=== PATIENT | male | born 1960 | race Caucasian/White ===

== ENCOUNTER 2023-04-10 14:46 | Outpatient (OUT) | payer OTHER, SELFPAY ==
--- NOTE | 2023-04-10 14:58 | CA_ITS ---
Patient Name Site Name MARY ABURTO [facility] Account No Medical Record Number Age Sex Date Time [id number] [facility]:[id number] M 04/10/2023 15:04 At the Request Of KENNEDI MICHELLE ECHOCARDIOGRAM REPORT PROCEDURE: CA ECHO DOPPLER COMPLETE INDICATIONS: Thoracic aortic aneurysm without rupture COMPARISON: None. DESCRIPTION: COMPLETE ECHOCARDIOGRAM Real-time transthoracic echocardiography with 2D, M-mode, spectral and color flow Doppler performed. QUALITY: Technical quality was good. LEFT VENTRICLE: Normal chamber size. Normal left ventricular wall thickness. Global left ventricular systolic function is normal. LV EF: Estimated left ventricular ejection fraction is 60-65% DIASTOLIC: Normal diastolic function. ATRIAL SEPTUM: LEFT ATRIUM: Normal chamber size. RIGHT ATRIUM: Normal chamber size. RIGHT VENTRICLE: Normal chamber size. Normal right ventricular systolic function. TRICUSPID VALVE: Normal mobility and thickness. No stenosis with trivial regurgitation. No evidence of pulmonary hypertension. RVSP 24 mmHg MITRAL VALVE: Normal mobility and thickness. No evidence of mitral valve stenosis. There is no mitral annular calcification. No mitral regurgitation. AORTIC VALVE: Normal trileaflet appearance. No visible sclerosis. Normal leaflet mobility. No evidence of aortic valve stenosis. Trivial aortic regurgitation. AORTIC ROOT: Mildly to moderately dilated, measuring 4.2 cm. The ascending aorta is mildly dilated, measuring 3.9 cm. PULMONIC VALVE: Normal thickness and mobility. No stenosis. No regurgitation. PERICARDIUM: No evidence of pericardial effusion. IVC: Collapses with inspirations. PLEURA: CONCLUSION: 1. Normal ventricular function. LVEF is 60 to 65%. 2. No significant valvular dysfunction. 3. Normal right-sided pressures. 4. Mildly to moderately dilated aortic root [4.2 cm], mildly dilated ascending aorta [3.9 cm]. 5. No pericardial effusion. Adult Echocardiography Procedure Report Left Ventricle LVEDD (3.7 - 5.6 cm): 4.75 cm LVESD (2.2 - 4.0 cm): 3.34 cm LVIVS thickness (0.6 - 1.2 cm): 0.96 cm LVPW thickness (0.5 - 1.0 cm): 0.93 cm e': 0.11 m/s E - e': 6.18 LVOT Max Gradient: 2.56 mm[Hg] LVOT Area (cm2): 0.80 m/s Peak Velocity (LVOT): 0.80 m/s Mean Velocity (LVOT): 0.55 m/s LVOT Diameter 2.36 cm Left Ventricular Ejection Fraction: 60-65% Left Atrium LA Volume Index (2D A2C): 20.09 ml/m2 Left Atrium Systolic Dimension: 2.74 cm Mitral Valve MV E to A Ratio: 1.03 Mitral Valve A-Wave Peak Velocity: 0.63 m/s Mitral Valve E-Wave Peak Velocity: 0.65 m/s Right Ventricle RV Internal Diastolic Dimension: 3.33 cm Aorta AO Root Diam: 4.18 cm Ascending Ao Diam: 3.91 cm Aortic Valve AoV Area (Peak [place]): 3.28 cm2, 3.28 cm2 AoV Area (VTI): 3.04 cm2, 3.04 cm2 Peak Velocity(Antegrade Flow): 1.07 m/s Peak Gradient(Antegrade Flow): 4.54 mm[Hg] Mean Velocity(Antegrade Flow): 0.82 m/s Mean Gradient(Antegrade Flow): 2.95 mm[Hg] Velocity Time Integral: 24.29 cm Tricuspid Valve Peak Velocity (Regurgitant Flow): 1.66 m/s, 2.27 m/s Pulmonic Valve Mean Gradient: 1.00 mm[Hg], 0.89 mm[Hg] Mean Velocity: 0.46 m/s, 0.44 m/s Peak Velocity: 0.66 m/s Peak Gradient: 1.75 mm[Hg], 1.69 mm[Hg] Right Atrium Right Atrium Systolic Pressure: 33.35 ml, 33.35 ml Dictated by: Virgilio Edwards M.D. on 04/10/2023 at 19:06 Approved by: Virgilio Edwards M.D. on 04/10/2023 at 19:10
== END 2023-04-10 14:47 ==
PROVIDERS: PCP Family Medicine; Visit Provider Nurse Practitioner Family
DX: I71.21 Aneurysm of the ascending aorta, without rupture (principal)
CPT/HCPCS: 93306

== ENCOUNTER 2023-07-09 07:34 | Outpatient (OUT) | payer OTHER, SELFPAY ==
[2023-07-09 08:21] LABS: Basophils Absolute Auto 0.1 10^3/uL (0.0-0.1); Basophils Percent Auto 0.7 % (0.2-2.0); Eosinophils Absolute Auto 0.4 10^3/uL (0.0-0.7); Eosinophils Percent Auto 4.9 % (0.9-7.0); Hematocrit 46.7 % (42.0-54.0); Hemoglobin 16.2 g/dL (14.0-18.0); Immature Granulocytes Abs Auto 0.04 10^3/uL (0.00-0.03); Immature Granulocytes Pct Auto 0.5 % (0.0-0.5); Lymphocytes Absolute Auto 2.3 10^3/uL (1.2-3.8); Lymphocytes Percent Auto 26.8 % (20.5-60.0); Mean Corpuscular HGB Conc 34.7 g/dL (29.9-35.2); Mean Corpuscular Hemoglobin 33.8 pg (25.9-34.0); Mean Corpuscular Volume 97.3 fL (80.0-94.0); Mean Platelet Volume 8.7 fL (9.5-13.5); Monocytes Percent Auto 11.9 % (1.7-12.0); Neutrophils Absolute Auto 4.7 10^3/uL (1.4-6.5); Neutrophils Percent Auto 55.2 % (43.0-75.0); Platelet Count 291 10^3/uL (150-450); Red Cell Distribution Width 12.7 % (11.0-15.0); White Blood Count 8.6 10^3/uL (4.0-11.0)
[2023-07-09 08:32] LABS: Estimated Average Glucose 111 mg/dL; Glycohemoglobin A1C 5.5 % (4.5-6.2)
[2023-07-09 09:51] LABS: Alanine Aminotransferase 15 U/L (16-63); Albumin Globulin Ratio 0.9; Albumin Level 3.6 g/dL (3.4-5.0); Alkaline Phosphatase 127 U/L (46-116); Anion Gap 11.1; Aspartate Amino Transferase 13 U/L (15-37); BUN Creatinine Ratio 6.6; Bilirubin Total 0.4 mg/dL (0.2-1.0); Calcium 9.6 mg/dL (8.5-10.1); Carbon Dioxide 27.8 mmol/L (21.0-32.0); Chloride 106 mmol/L (98-107); Chol HDL Ratio 2.5; Cholesterol 125 mg/dL (<=200); Estimated GFR (African America >60 (>=60); Estimated GFR (Non-African Ame >60 (>=60); Globulin 3.9 g/dL; Glucose 100 mg/dL (74-106); HDL Cholesterol 51 mg/dL (40-60); LDL Cholesterol Calculated 59.4 mg/dL; Potassium 4.9 mmol/L (3.5-5.1); Sodium 140 mmol/L (136-145); Thyroid Stimulating Hormone 2.174 uIU/mL (0.358-3.740); Total Protein 7.5 g/dL (6.4-8.2); Triglycerides 73 mg/dL (<=150); VLDL CHOLESTEROL 14.6 mg/dL
[2023-07-09 09:54] LABS: Free T4 1.17 ng/dL (0.76-1.46)
[2023-07-09 10:00] LABS: Prostate Specific Antigen Scrn 1.03 ng/mL (<=4.00)
== END 2023-07-09 07:35 | disposition home or self-care (01) ==
PROVIDERS: PCP Family Medicine; Visit Provider Family Medicine
DX: Z00.00 Encounter for general adult medical examination without abnormal findings (principal); Z79.899 Other long term (current) drug therapy; R53.83 Other fatigue; Z12.5 Encounter for screening for malignant neoplasm of prostate
CPT/HCPCS: 36415; 80053; 80061; 83036; 84439; 84443; 84481; 85025; G0103

== ENCOUNTER 2023-10-25 14:37 | Outpatient (OUT) | payer OTHER, SELFPAY ==
--- NOTE | 2023-10-25 14:42 | XR_ITS ---
[address] [address] Patient Name: MARY ABURTO MRN: [id number] date: 1960 Sex: M Assigned Patient Location: [facility] Current Patient Location: Accession/Order Number: [id number] Exam Date: 10/25/2023 14:55 Report Date: 10/27/2023 18:18 At the request of: NIKUNJ HOFFMAN Procedure: XR cervical spine 5V EXAM: XR cervical spine 5V HISTORY: Cervical Radiculopathy M54.12 COMPARISON: None. FINDINGS/IMPRESSION: 1. Posterior fusion hardware throughout the cervical spine with pedicle screws and interconnecting rods. Anterior cervical discectomy and fusion hardware of the lower cervical spine. 2. Prevertebral soft tissues are normal. Airway is patent. 3. Plate and screw fixation of the right clavicle. 4. Lung apices are clear. 5. No acute fracture. Electronically authenticated by: LAURA BLACK Date: 10/27/2023 18:18
== END 2023-10-25 14:38 | disposition home or self-care (01) ==
LOC: RAD 14:38
PROVIDERS: PCP Family Medicine; Visit Provider Anesthesiology
DX: M54.12 Radiculopathy, cervical region (principal)
CPT/HCPCS: 72050

== ENCOUNTER 2023-11-30 13:16 | Outpatient (OUT) | payer OTHER, SELFPAY ==
--- OUTSIDE RECORDS SUMMARY | 2023-11-30 13:24 | XMS_ITS | CCD ---
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 Role Phone UNKNOWN, PROVIDER Admitting Unavailable UNKNOWN, PROVIDER Attending Unavailable BOO QUINTANILLA Referring Unavailable BOO QUINTANILLA Primary Care Unavailable MD Boo Quintanilla Primary Care Provider [phone] MD Boo Quintanilla Attending Provider [phone] Anesthesiologist, Temporary Attending Provider [facility] Referring Provider [facility] Laura Del Castillo Emergency Provider [phone] MD Antwon Hastings Admit Provider MD Antwon Hastings Attending Provider Antwon Hastings Unavailable Lele Fong Unavailable MD Boo Quintanilla Primary Care Provider [phone] MD Boo Quintanilla Primary Care Provider [phone] MD Antwon Hastings Attending Provider [phone] MD Boo Quintanilla Primary Care Provider [phone] MD Antwon Hastings Attending Provider [phone] Dr. Rigo Hughes Attending Unava ilable DR ANTWON HASTINGS Admitting Unavailable DR ANTWON HASTINGS Attending Unavailable JANE ., DR HADDAD Primary Care Unavailable THAIS, DR SAMANTA Millan Consulting Unavailable DR ANTWON HASTINGS Consulting Unavailable JANE ., DR HADDAD Admitting Unavailable HOJessica ., DR HADDAD Attending Unavailable JANE ., DR HADDAD Primary Care Unavailable JANE Joyner, DR HADDAD Consulting Unavailable BRANDONY ., DR HADDAD Admitting Unavailable HOJessica ., DR HADDAD Attending Unavailable HOY ., DR HADDAD Primary Care Unavailable HOY ., DR HADDAD Consulting Unavailable HOY ., DR HADDAD Admitting Unavailable HOY ., DR HADDAD Attending Unavailable HOY ., DR HADDAD Primary Care Unavailable HOY ., DR HADDAD Consulting Unavailable PA[place], DR SAMANTA Millan Consulting Unavailable HOY ., DR HADDAD Admitting Unavailable HOY ., DR HADDAD Attending Unavailable HOY ., DR HADDAD Primary Care Unavailable HOY ., DR HADDAD Primary Care Unavailable MONTSERRAT ., JOHANN Admitting Unavailable MONTSERRAT ., JOHANN Attending Unavailable JEAN PIERRE, JOHNY Consulting Unavailable AARON MORA Consulting Unavailable MONTSERRAT ., JOHANN Consulting Unavailable HOY ., DR HADDAD Primary Care Unavailable MONTSERRAT ., JOHANN Admitting Unavailable MONTSERRAT ., JOHANN Attending Unavailable MONTSERRAT ., JOHANN Consulting Unavailable HOY ., DR HADDAD Primary Care Unavailable HOY ., DR HADDAD Admitting Unavailable HOY ., DR HADDAD Attending Unavailable HOY ., DR HADDAD Consulting Unavailable HAY ., DR PIERCE Consulting Unavailable JOHNY COLLAZO Consulting Unavailable MOIZ BROWNING Consulting Unavailable SAMANTA JENNINGS Unavailable MD Boo Quintanilla Primary Care Provider [phone] MD Antwon Hastings Attending Provider [phone] MD Antwon Hastings Admit Provider MD Boo Quintanilla Primary Care Provider [phone] MD Antwon Hastings Attending Provider [phone] Antwon Hastings Admitting Unavailable Hoy, Boo M Primary Care Unavailable Antwon Hastings Attending Unavailable Titus Hastingse E Admitting Unavailable Hoy, Boo M Primary Care Unavailable Antwon Hastings Attending Unavailable Hastings, Antwon E Admitting Unavailable Hoy, Boo M Primary Care Unavailable Antwon Hastings Attending Unavailable Hastings, Antwon E Admitting Unavailable Hoy, Boo M Primary Care Unavailable Antwon Hastings Attending Unavailable Hastings, Antwon E Admitting Unavailable Hoy, Boo M Primary Care Unavailable Antwon Hastings Attending Unavailable Hastings, Antwon E Admitting Unavailable Hoy, Boo M Primary Care Unavailable Antwon Hastings Attending Unavailable Hastings, Antwon E Admitting Unavailable Hoy, Boo M Primary Care Unavailable Antwon Hastings Attending Unavailable Hoy, Boo Primary Care Physician [phone] Damián Estrada Attending Unavailable Damián Estrada Admitting Unavailable Antwon Hastings Referring Unavailable Allergies Allergy Classification Reported Allergen(s) Allergy Type Date of Onset Reaction(s) Facility (2 sources) Ibuprofen Drug Allergy 09-26-20 16 [facility] Repository (12 sources) Penicillins Drug allergy (disorder) 09-08-20 09 [facility] (12 sources) Sulfonamides (Antibiotic) Drug allergy (disorder) 03-18-20 13 [facility] (20 sources) penicillAMINE Drug Allergy Unknown [facility] Other (20 sources) Sulfacetamide / Sulfur Drug Allergy Unknown [facility] Other (1 source) Penicillins Drug allergy (disorder) 02-13-20 [facility] Repository (1 source) Sulfonamides (Antibiotic) Drug allergy (disorder) 02-13-20 [facility] Repository (2 sources) Penicillin; Translations: [penicillin] Drug Allergy Eruption of skin (disorder) [facility] (2 sources) Sulfonamides (Antibiotic); Translations: [sulfa drugs] Drug allergy Eruption of skin (disorder) [facility] [place] (1 source) No Known Medication Allergies; Translations: [No Known Medication Allergies] Propensity to adverse reactions (disorder) [facility] Repository Medications Current Medications Medication Drug Class(es) Dates Sig (Normalized) Sig (Original) acetaminophen 325 mg / oxyCODONE hydrochloride 5 mg oral tablet (14 sources) Opioid Agonist Start: 10-18-2023 take 1 tablet by mouth twice daily as needed for pain acetaminophen-oxy codone 325 mg-5 mg Tab 1 tab(s), Oral, BID as needed for pain, Refill(s) 0 Start Date: 10/18/23 Status: Ordered Start: 02-12-2023 End: 02-14-2023 take 1 tablet by mouth twice daily Oxycodone-Acetaminophen Discontinued 1 T AB PO Twice daily February 12, 2023 12:00am February 14, 2023 8:22am Start: 02-28-2022 End: 03-02-2022 take 1 tablet by mouth every four to six hours Oxycodone-Acetaminophen (Percocet) 5-325 mg Tablet Discontinued 1 TAB PO EVERY 4-6 HOURS February 28, 2022 12:00am March 02, 2022 1:26pm oxyCODONE-Acetam inophen 5-325 MG Not Available Oral for 10 Days Active aspirin 81 mg oral tablet (20 sources) Platelet Aggregation Inhibitor, Nonsteroidal Anti-inflammatory Drug Start: 09-10-2019 take 81 mg by mouth once daily in the morning Aspirin Active 81 MG PO Every morning February 07, 2022 12:00am take 1 tablet by jacquie th every twenty-four hours Aspirin 81 81 MG 1 tablet Orally Once a day Active atorvastatin 40 mg oral tablet (20 sources) HMG-CoA Reductase Inhibitor Start: 02-07-2022 take 40 mg by mouth once daily at bedtime Atorvastatin Active 40 MG PO Daily at bedtime February 07, 2022 12:00am baclofen 20 mg oral tablet (20 sources) gamma-Aminobutyr ic Acid-ergic Agonist Start: 10-18-2023 take 1 tablet by mouth three times daily baclofen 20 mg Tab 20 mg = 1 tab(s), Oral, TID, Refills(s) 0 Start Date: 10/18/23 Status: Ordered Start: 02-07-2022 End: 03-02-2022 take 10-20 mg by mouth once daily at bedtime Baclofen Discontinued 10 - 20 MG PO Daily at bedtime February 07, 2022 12:00am March 02, 2022 1:26pm Baclofen 20 MG N ot Available Oral for 5 Days Not-Taking/PRN ciprofloxacin 500 mg oral tablet (9 sources) Quinolone Antimicrobial Start: 02-14-2023 take 1 tablet by mouth every two hours Ciprofloxacin Hcl (Cipro) 500 mg tablet Active 500 MG PO Q12H February 14, 2023 12:00am administer dose at least 2 hrs before/6 hrs after dairy products, calcium, zinc, and/or iron-containing products Start: 03-02-2022 End: 01-29-2023 take 1 tablet by mouth every two hours Ciprofloxacin Hcl (Cipro) 500 mg Tablet Discontinued 500 MG PO Q12H March 02, 2022 12:00am January 29, 2023 4:50pm administer dose at least 2 hrs before/6 hrs after dairy products, calcium, zinc, and/or iron-containing products cyclobenzaprine hydrochloride 10 mg oral tablet (20 sources) Muscle Relaxant Start: 02-14-2023 take 10 mg by mouth three times daily Cyclobenzaprine Active 10 MG PO Three times daily 40 February 14, 2023 12:00am diazePAM 10 mg oral tablet (15 sources) Benzodiazepine Start: 12-07-2022 take 1 tablet by mouth every twelve hours Valium 10 MG 1 tablet as needed Orally bid for 1 days Take one tablet 30 minutes prior to exam then take the second tablet once you arrive at the exam Nov, Active gabapentin 300 mg oral capsule (20 sources) Anti-epileptic Agent Start: 02-07-2022 take 600 mg by mouth twice daily Gabapentin Active 600 MG PO Twice daily February 07, 2022 12:00am Start: 02-07-2022 take 300 mg by mouth twice can ly Gabapentin Active 300 MG PO Twice daily February 06, 2022 11:00pm Start: 09-10-2019 take 1 tablet by jacquie th twice daily gabapentin 600 mg Tab 600 mg = 1 tab(s), Oral, BID Start Date: 09/10/19 Status: Ordered levothyroxine sodium 0.075 mg oral tablet (20 sources) l-Thyroxine Start: 02-07-2022 take 75 ug by mouth once daily in the morning Levothyroxine Active 75 MCG PO Every morning February 07, 2022 12:00am Start: 09-10-2019 take 1 tablet by jacquie th twice daily levothyroxine 50 mcg (0.05 mg) Tab 50 microgram = 1 tab(s), Oral, BID Start Date: 09/10/19 Status: Ordered take 1 tablet by jacquie th once daily in the morning Levothyroxine Sodium 75 MCG 1 tablet in the morning on an empty stomach Orally Once a day Active metoprolol tartrate 25 mg oral tablet (20 sources) beta-Adrenergic Nicolasa Start: 09-10-2019 take 25 mg by mouth twice daily Metoprolol Tartrate Active 25 MG PO Twice daily February 07, 2022 12:00am take 1 capsule by mouth once can ly Metoprolol Succinate 25 MG 1 capsule Orally Once a day Active oxaprozin 600 mg oral tablet (20 sources) Nonsteroidal Anti-inflammatory Drug Start: 10-18-2023 take 2 tablets by mouth once daily oxaprozin 600 mg Tab 1,200 mg = 2 tab(s), Oral, Daily, Refills(s) 0 Start Date: 10/18/23 Status: Ordered take 2 tablets by mo ut once daily as needed Oxaprozin 600 MG TAKE 2 TABLETS BY MOUTH EVERY DAY Oral for 30 Days Not-Taking/PRN oxyCODONE hydrochloride 5 mg oral tablet (20 sources) Opioid Agonist Start: 04-24-2023 take 1 tablet by mouth every eight hours oxyCODONE HCl 5 MG 1 tablet Oral tid for 7 days Mar, Active Start: 04-17-2023 take 1 tablet by jacquie th every twelve hours Start: 04-03-2023 take 1 tablet by jacquie th every eight hours oxyCODONE HCl 5 MG 1 tablet Oral tid for 7 days Mar, Active Start: 02-14-2023 take 5-10 mg by mout h every six hours Oxycodone Active 5 - 10 MG PO Q6H 40 8 February 14, 2023 Start: 03-02-2022 End: 02-12-2023 take 10 mg by mouth every six hours Oxycodone Discontinued 10 MG PO Q6H January 29, 2023 4:53pm February 12, 2023 9:01am Start: 03-02-2022 End: 01-29-2023 take 5-10 mg by mouth every six hours Oxycodone Discontinued 5 - 10 MG PO Q6H 50 8 March 02, 2022 January 29, 2023 4:53pm phenytoin sodium 100 mg extended release oral capsule (20 sources) Anti-epileptic Agent Start: 02-07-2022 take 300 mg by mouth twice daily Phenytoin Sodium Extended Active 300 MG PO Twice daily February 07, 2022 12:00am Start: 09-10-2019 take 1 capsule by mo [facility] twice daily Dilantin 100 mg Cap-ER 100 mg = 1 cap(s), Oral, BID Start Date: 09/10/19 Status: Ordered Phenytoin Sodium Active Prednisone (9 sources) Start: 02-14-2023 Prednisone Act sonia 1 dose pk PO per package directions February 14, 2023 12:00am take 4 tabs for 3 days then take 3 tabs for 3 days then take 2 tabs for 3 days then take 1 tab for 3 days Start: 03-02-2022 Prednisone Act sonia 1 dose pk PO per package directions March 02, 2022 1:23pm take 4 tabs for 3 days then take 3 tabs for 3 days then take 2 tabs for 3 days then take 1 tab for 3 days Start: 03-02-2022 End: 01-29-2023 Prednisone Discontinued 1 do se pk PO per package directions March 02, 2022 12:00am January 29, 2023 4:52pm take 4 tabs for 3 days then take 3 tabs for 3 days then take 2 tabs for 3 days then take 1 tab for 3 days Start: 03-02-2022 Prednisone Act sonia 1 dose pk PO per package directions March 01, 2022 11:00pm take 4 tabs for 3 days then take 3 tabs for 3 days then take 2 tabs for 3 days then take 1 tab for 3 days simvastatin 40 mg oral tablet (1 source) HMG-CoA Reductase Inhibitor Start: 09-10-2019 take 1 tablet by mouth once daily simvastatin 40 mg Tab 40 mg = 1 tab(s), Oral, Daily Start Date: 09/10/19 Status: Ordered traZODone hydrochloride 100 mg oral tablet (20 sources) Serotonin Reuptake Inhibitor Start: 02-07-2022 take 150 mg by mouth once daily at bedtime Trazodone Active 150 MG PO Daily at bedtime February 07, 2022 12:00am Start: 09-10-2019 take 100 mg by mouth once daily at bedtime Trazodone Active 100 MG PO Daily at bedtime February 06, 2022 11:00pm take 1 tablet by jacquie th every twenty-four hours traZODone HCl 150 MG 1 tablet at bedtime Orally Once a day Active Completed/Discontinued Medications Medication Drug Class(es) Dates Sig (Normalized) Sig (Original) dexamethasone 4 mg oral tablet (11 sources) Corticosteroid Start: 02-23-2022 End: 03-02-2022 take 4 mg by mouth three times daily Dexamethasone Discontinued 4 MG PO Three times daily February 28, 2022 12:00am March 02, 2022 1:26pm ibuprofen 800 mg oral tablet (20 sources) Nonsteroidal Anti-inflammatory Drug Start: 02-07-2022 End: 03-02-2022 take 800 mg by mouth every four to six hours Ibuprofen Discontinued 800 MG PO EVERY 4-6 HOURS February 07, 2022 12:00am March 02, 2022 1:26pm indomethacin 50 mg oral capsule (20 sources) Nonsteroidal Anti-inflammatory Drug Start: 02-07-2022 End: 01-29-2023 take 50 mg by mouth three times daily Indomethacin Discontinued 50 MG PO Three times daily February 07, 2022 12:00am January 29, 2023 4:52pm LORazepam 0.5 mg oral tablet (7 sources) Benzodiazepine Start: 03-02-2022 End: 02-12-2023 take 1 tablet by mouth three times daily Lorazepam (Ativan) 0.5 mg tablet Discontinued 0.5 MG PO Three times daily 42 14 March 02, 2022 12:00am February 12, 2023 9:02am Problems Active Problems Problem Classification Problem Date Documented Date Episodic/Chronic Anxiety disorders (1 source) Anxiety disorder, unspecified; Translations: [ANXIETY DISORDER UNSPECIFIED] Onset: 02-20-2023 Chronic Chronic obstructive pulmonary disease and bronchiectasis (1 source) Chronic obstructive pulmonary disease, unspecified; Translations: [COPD UNSPECIFIED] Onset: 02-20-2023 Chronic Diseases of white blood cells (1 source) Elevated white blood cell count, unspecified; Translations: [ELEVATED WHITE BLOOD CELL COUNT UNS] Onset: 04-19-2022 Chronic Disorders of lipid metabolism (2 sources) Hyperlipidemia, unspecified; Translations: [HYPERLIPIDEMIA, UNSPECIFIED] Onset: 01-21-2019 Chronic Essential hypertension (2 sources) Essential (primary) hypertension; Translations: [ESSENTIAL (PRIMARY) HYPERTENSION] Onset: 01-21-2019 Chronic Malaise and fatigue (1 source) Other fatigue; Translations: [OTHER FATIGUE] Onset: 01-21-2019 Episodic Menopausal disorders (1 source) Hormone replacement therapy; Translations: [HORMONE REPLACEMENT THERAPY] Onset: 02-20-2023 Episodic Mood disorders (1 source) Major depressive disorder, single episode, unspecified; Translations: [ANAMIKA DEPRESS D/O SINGLE EPIS UNS] Onset: 04-19-2022 Chronic Mood disorders (1 source) Mood disorders; Translations: [DEPRESSION UNSPECIFIED] Onset: 02-20-2023 Other acquired deformities (20 sources) Spondylolisthesis; Translations: [Spondylolisthesis, cervical region] Episodic Other acquired deformities (7 sources) Spondylolisthesis, cervical region Onset: 02-23-2022 Resolved: 02-23-2022 Episodic Other aftercare (2 sources) custodial (current) use of aspirin; Translations: [BANQUET PILOT (CURRENT) USE OF ASPIRIN] Onset: 01-21-2019 Episodic Other aftercare (1 source) custodial (current) use of anticoagulants; Translations: [BANQUET PILOT CURRNT USE ANTICOAGULANTS] Onset: 02-20-2023 Episodic Other aftercare (1 source) Other sales estimator (current) drug therapy; Translations: [OTH HALFWAY CURRENT DRUG THERAPY] Onset: 02-20-2023 Episodic Other circulatory disease (2 sources) Personal history of transient ischemic attack (TIA), and cerebral infarction without residual deficits; Translations: [PRSNL HX OF TIA (TIA), AND CEREB INFRC W/O RESID DEFICITS] Onset: 01-21-2019 Episodic Other connective tissue disease (1 source) Presence of unspecified artificial shoulder joint; Translations: [PRESENCE UNS ARTFICIAL SHOULDR JNT] Onset: 02-20-2023 Chronic Other connective tissue disease (8 sources) Muscle weakness of upper limb; Translations: [Other symptoms and signs involving the musculoskeletal system] 02-28-2022 Episodic Other connective tissue disease (3 sources) Other symptoms and signs involving the musculoskeletal system; Translations: [Other musculoskeletal symptoms referable to limbs] Episodic Other connective tissue disease (1 source) Arthrodesis status; Translations: [ARTHRODESIS STATUS] Onset: 02-20-2023 Episodic Other endocrine disorders (4 sources) Testicular hypofunction; Translations: [TESTICULAR HYPOFUNCTION] Onset: 07-06-2022 Chronic Other nervous system disorders (17 sources) Ulnar neuropathy of right arm; Translations: [Lesion of ulnar nerve, right upper limb] Chronic Other nervous system disorders (1 source) Lesion of ulnar nerve, right upper limb Onset: 05-11-2022 Resolved: 05-11-2022 Chronic Other nervous system disorders (1 source) Other acute postprocedural pain; Translations: [OTHER ACUTE POSTPROCEDURAL PAIN] Onset: 02-20-2023 Episodic Pulmonary heart disease (2 sources) Personal history of pulmonary embolism; Translations: [Other pulmonary embolism without acute cor pulmonale] Onset: 04-19-2022 Episodic Spondylosis; intervertebral disc disorders; other back problems (20 sources) Intervertebral disc disorder of cervical region with myelopathy; Translations: [Cervical disc disorder with myelopathy, unspecified cervical region] Onset: 02-23-2022 Resolved: 05-11-2022 02-28-2022 Chronic Spondylosis; intervertebral disc disorders; other back problems (20 sources) Cervical radiculopathy; Translations: [Radiculopathy, cervical region] Onset: 02-12-2023 Episodic Unclassified (1 source) R07.89 OTHER CHEST PAIN Onset: 01-21-2019 Unclassified (1 source) R0789 OTHER CHEST PAIN Onset: 01-21-2019 Unclassified (1 source) CONTACT W/AND (SUSP) EXPOS COVID-19; Translations: [CONTACT W/AND (SUSP) EXPOS COVID-19] Onset: 04-19-2022 Unclassified (1 source) Spondylolisthesis, cervical region; Translations: [Spondylolisthesis, cervical region] Onset: 05-22-2023 Unclassified (1 source) Encounter for preprocedural laboratory examination; Translations: [Encounter for preprocedural laboratory examination] Onset: 01-29-2023 Unclassified (1 source) Patient encounter status 09-10-2019 Past or Other Problems Problem Classification Problem Date Documented Da te Episodic/Chronic Cardiac dysrhythmias (1 source) Tachycardia, unspecified; Translations: [TACHYCARDIA UNSPECIFIED] Onset: 04-19-2022 Episodic Deficiency and other anemia (1 source) Anemia, unspecified; Translations: [ANEMIA UNSPECIFIED] Onset: 06-12-2022 Episodic Diabetes mellitus without complication (1 source) Other abnormal glucose; Translations: [OTHER ABNORMAL GLUCOSE] Onset: 06-12-2022 Episodic Epilepsy; convulsions (1 source) Unspecified convulsions; Translations: [UNSPECIFIED CONVULSIONS] Onset: 06-12-2022 Episodic Nonspecific chest pain (9 sources) Chest pain, unspecified; Translations: [Other chest pain] Onset: 01-21-2019 Episodic Other lower respiratory disease (4 sources) Shortness of breath; Translations: [SHORTNESS OF BREATH] Onset: 01-21-2019 Episodic Other screening for suspected conditions (not mental disorders or infectious disease) (7 sources) Abnormal level of hormones in specimens from male genital organs; Translations: [Encounter for screening for malignant neoplasm of prostate] Onset: 04-19-2022 Episodic Residual codes; unclassified (4 sources) Insomnia, unspecified; Translations: [INSOMNIA UNSPECIFIED] Onset: 06-09-2022 Episodic Screening and history of mental health and substance abuse codes (2 sources) Personal history of nicotine dependence; Translations: [PERSONAL HISTORY OF NICOTINE DEPENDENCE] Onset: 01-21-2019 Episodic Results Test Name Value Interpretation Reference Range Facility Physician Orderon 11-28-2023 Physician Order [id number] F Normal [facility] Physician Orderon 11-20-2023 Physician Order [id number] Normal [facility] Radiology Outside Office Cotton Washer yon 11-13-2023 Radiology Outside Office Copy [id number] Normal [facility] Consent for Treatmenton 09-29 Consent for Treatment [id number] Normal [facility] Consultation Noteon 10-18-20 Consultation Note Patient: MARY ABURTO Age: 63 years Sex: Male : 1960 Associated Diagnoses: None Author: Damián Estrada DO Chief Complaint 10/18/2023 14:49 EST neck pain History of Present Illness Patient is presenting with complaints of neck pain. He has had an extensive history of neck surgeries in the past as well as shoulder surgeries and clavicle surgery. However he feels that about a month ago he was lifting something heavy felt and felt an extremely loud pop in his neck which brought him to the ground and had intensification of his neck and radicular pain in his bilateral upper extremities and has had worsening pain since then. He has not had any significant falls or gait abnormalities but he does feel that his strength has gone down slightly with prolonged use before returning to normal. however he has not had any other significant signs of dexterity changes or bowel/bladder changes. He would like to know what can be done about his neck pain and we discussed that the neck step would be obtaining imaging to further evaluate what is going on. RANDI Score: 70% PHQ-2: 4 Patient denies any symptoms of progressively worsening upper/lower extremity weakness, progressively worsening gait abnormality, new onset bowel/bladder incontinence/ urinary retention, or saddle anesthesia. No new or worsening symptoms of fever, chills, night sweats. Health Status Allergies: Allergic Reactions (All) Severity Not Documented Penicillin- Rash. Sulfa drugs- Rash. Canceled/Inactive Reactions (All) No Known Medication Allergies, Allergies (2) Active Reaction penicillin Rash sulfa drugs Rash Current medications: Home Medications (10) Active acetaminophen-oxycodone 325 mg-5 mg Tab 1 tab(s), PRN, Oral, BID aspirin 81 mg oral tablet 81 mg = 1 tab(s), Oral, Daily baclofen 20 mg Tab 20 mg = 1 tab(s), Oral, TID Dilantin 100 mg Cap-ER 100 mg = 1 cap(s), Oral, BID gabapentin 600 mg Tab 600 mg = 1 tab(s), Oral, BID levothyroxine 50 mcg (0.05 mg) Tab 50 microgram = 1 tab(s), Oral, BID Metoprolol tartrate 25 mg Tab 25 mg = 1 tab(s), Oral, BID oxaprozin 600 mg Tab 1,200 mg = 2 tab(s), Oral, Daily simvastatin 40 mg Tab 40 mg = 1 tab(s), Oral, Daily traZODONE 100 mg Tab 100 mg = 1 tab(s), Oral, Once a day (at bedtime) , No qualifying data available Histories Past Medical History: No active or resolved past medical history items have been selected or recorded. Family History: Primary malignant neoplasm of lung Father Sister Procedure history: Cardiac catheter ([id number]) on 01/21/2019 at 58 Years. Comments: 09/10/2019 12:[address] [facility] ([id number]). Cervical laminectomy ([id number]). Physical Examination Vital Signs (last 24 hrs) Last Charted Heart Rate Peripheral L 58bpm (OCT 18 14:49) SBP 108 mmHg (OCT 18:49) DBP 80 mmHg (OCT 18:49) Weight 63.50 kg (OCT 18:49) BMI 20.09 (OCT 18:49) General: No acute distress. Patient appears well-nourished. HEENT: Head is normocephalic and external ears are normal in appearance. Cardiovascular: No signs of poor perfusion and no peripheral edema Pulmonary: Nonlabored breathing, symmetric chest movement. GI: Abdomen nondistended Integumentary: No lesions Musculoskeletal: Tenderness to palpation the cervical paraspinal musculature. Significant webspace wasting between first and second digits of the webspace of the right hand. Neurologic: Alert, oriented x3. 5/5 strength grossly in the bilateral upper extremities with the exception of 4/5 linux system administrator strength on the right. 5/5 strength grossly in the bilateral lower extremities. Special Testing: Negative Logan sign bilaterally, positive Spurling sign bilaterally. Impression and Plan History, physical examination, and personal review of pertinent imaging results indicate a diagnosis of: -Cervical postlaminectomy pain syndrome and cervical radiculopathy Plan: -Will obtain a cervical spine x-ray due to his recent exacerbation of pain in February compared to prior imaging studies and discussed with his surgeon if needed to evaluate hardware positioning -We may also consider advanced imaging or interventions based on results of his initial x-ray -Plan to follow-up 1 month or sooner if any issues arise Patient was counseled on the above diagnosis and treatment, all questions were answered and patient agrees to adhere to the plan above. Risk and benefits of appropriate procedures and medications were reviewed as well with patient, who voiced understanding and agreeance. Patient was counseled on smoking cessation and/or continuing to abstain from nicotine/tobacco products as appropriate based on history; as smoking/nicotine can contribute to increased pain overall and decreased wound healing. Patient counseled on maintaining a healthy BMI as part of the total treatment of their pain and to reduce stress/strain on joints. P (more content not included)... Normal [facility] Comment on above: Result Comment: Elec tronically Signed By: Damián Estrada DO\.br\Date and Time Signed: 10/18/23 15:50 EST HIPAA Forms Officeon 023 HIPAA Forms Office [id number] [facility] Insurance Correspondenceon 1 12-19-2022 Insurance Correspondence [id number]#1.00TIFF [facility] Insurance Correspondence [id number]#1.00TIFF Normal [facility] Legal Correspondence Officeo n 10-18-2023 Legal Correspondence Office [id number]#1.00TIFF Normal [facility] Legal Correspondence Office [id number]#1.00TIFF Normal [facility] Office/Clinic Note-Physician on 10-18-2023 Office/Clinic Note-Physician [id number]#1.00TIFF Normal [facility] Outside Records Officeon Outside Records Office [id number]#2.00TIFF Normal [facility] Patient Correspondenceon Patient Correspondence [id number]#1.00TIFF Normal [facility] Patient Correspondence [id number]#1.00TIFF Normal [facility] Patient Correspondence [id number]#1.00TIFF Normal [facility] Patient Correspondence [id number]#1.00TIFF Normal [facility] Patient Correspondence [id number]#1.00TIFF Normal [facility] Patient History Officeon Patient History Office [id number]#1.00TIFF Normal [facility] Patient History Office [id number]#1.00TIFF Normal [facility] Physician Orderon 10-18-2023 Physician Order [id number]#1.00TIFF Normal [facility] Radiology Outside Office Cotton Washer yon 10-18-2023 Radiology Outside Office Copy [id number]#1.00TIFF Normal [facility] Radiology Outside Office Copy [id number]#1.00TIFF Normal [facility] Radiology Outside Office Copy [id number]#1.00TIFF Normal [facility] Radiology Outside Office Copy [id number]#1.00TIFF Normal [facility] Radiology Outside Office Copy [id number]#1.00TIFF Normal [facility] Referrals Officeon 3 Referrals Office [id number]#1.00TIFF Normal [facility] XR cerv spine AP/LAT/FLX/EXT on 08-14-2023 XR cerv spine AP/LAT/FLX/EXT [facility] [place] [address] XRay Report Signed Patient: Mary Aburto MR#: [id number] : 1960 Acct:[id number] Age/Sex: 63 / M ADM Date: 08/14/23 Loc: XD Room: Type: [facility] Attending Dr: Antwon Hastings MD Copies to: Antwon Hastings MD Ordering Provider: Antwon Hastings MD Date of Service: 08/14/23 XR/XR cerv spine AP/LAT/FLX/EXT: M43.12 XR cerv spine AP/LAT/FLX/EXT 08/14/2023 3:26 PM SIGNS AND SYMPTOMS: Follow-up cervical fusion PROTOCOLS: Frontal, lateral, and flexion-extension views of the cervical spine COMPARISON: 05/22/2023 FINDINGS: There is posterior fusion from C2 through T2. There is anterior fusion from C4 through C7. There is no hardware complication or malalignment. Flexion and extension views show no pathologic movement or significant change in alignment. There is mild disc height loss with anterior osteophyte formation at C3-C4. The prevertebral soft tissues are within normal limits. There is no fracture or destructive lesion. There is evidence of previous hardware fixation of a remote right clavicle fracture. XR/XR cerv spine AP/LAT/FLX/EXT IMPRESSION: No fracture or subluxation. Anterior and posterior fusion is noted throughout cervical spine shows no change in alignment. No pathologic movement on flexion or extension. Impression dictated by: Thomas Justice M.D.08/14/2023 6:49 PM Dictation Location: [facility]13 Transcribed By: [facility] 08/14/231848 Dictated By: Thomas Justice II, MD 08/14/231842 Signed By: 08/14/231848 [facility] XR cerv spine AP/LAT/FLX/EXT on 05-22-2023 XR cerv spine AP/LAT/FLX/EXT [facility] [place] [address] XRay Report Signed Patient: Mary Aburto MR#: [id number] : 1960 Acct:[id number] Age/Sex: 63 / M ADM Date: 05/22/23 Loc: XD Room: Type: [facility] Attending Dr: Antwon Hastings MD Copies to: Antwon Hastings MD Ordering Provider: Antwon Hastings MD Date of Service: 05/22/23 XR/XR cerv spine AP/LAT/FLX/EXT: M43.12 CERVICAL SPINE 4 views: CLINICAL HISTORY: Follow-up surgery. COMPARISON: Cervical spine 04/03/2023 FINDINGS: Anterior and posterior fusion hardware is grossly unchanged from the prior study without evidence of hardware complication. No pathological motion on flexion or extension views. No prevertebral soft tissue swelling. Partially visualized right clavicular hardware seen. XR/XR cerv spine AP/LAT/FLX/EXT IMPRESSION: NO EVIDENCE OF HARDWARE COMPLICATION. Impression dictated by: Jorge Dimas Jr. 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 Continue with good BP and HR control. He is due for a routine follow-up appt. Thanks! Normal [facility] Telephoneon 04-23-2023 Telephone [id number] Mary Aburto 1960 M Date Provider Department [facility]. No family history on file [facility] XR cervical spine 2Von 04-03 XR cervical spine 2V [facility] [place] [address] [place] [address] XRay Report Signed Patient: Mary Aburto MR#: [id number] : 1960 Acct:[id number] Age/Sex: 63 / M ADM Date: 04/03/23 Loc: XD Room: Type: [facility] Attending Dr: Antwon Hastings MD Copies to: Antwon Hastings MD Ordering Provider: Antwon Hastings MD Date of Service: 04/03/23 XR/XR cervical spine 2V: M47.12 2 views of thecervical spine HISTORY: Follow-up assessment for cervical fusion COMPARISON: 02/12/2023 POSTOPERATIVE CHANGES: C2-T2 posterior fixation hardware intact and in adequate position. C4 C7 anterior plate and screw fixation intact and in adequate position. Left clavicle fixation hardware present. No failure. BONY ALIGNMENT: Similar bony alignment. FRACTURE: None DISC DEGENERATION: Similar degenerative change. FACETS: Unremarkable FORAMEN: Unremarkable DENS: Intact CRANIOCERVICAL JUNCTION: Unremarkable SOFT TISSUES: Unremarkable XR/XR cervical spine 2V IMPRESSION: Anterior posterior cervical spine fixation without complication. No hardware failure. Impression dictated by: Nguyễn Patel M.D.04/03/2023 4:51 PM Dictation Location: [facility]-12 Transcribed By: BETHANY 04/03/23 165 Dictated By: Nguyễn Patel DO 04/03/23 1649 Signed By: 04/03/23 1651 Normal [facility] Amphetamine Screen Ql (U)Ord ered By: Jaime Trujillo on 02-12-2023 Amphetamines Ql (U) Negative Negative [facility] Barbiturates [Presence] in U rine by Screen methodOrdered By: Jaime Trujillo on 02-12-2023 Barbiturates Screen Ql (U) Negative Negative [facility] Benzodiazepines Screen Ql (U )Ordered By: Jaime Trujillo on 02-12-2023 Benzodiazepines Ql (U) Negative Negative [facility] Benzoylecgonine [Presence] i n Urine by Screen methodOrdered By: Jaime Trujillo on 02-12-2023 Benzoylecgonine Screen Ql (U) Negative Negative [facility] Cannabinoids [Presence] in U rine by Screen methodOrdered By: Jaime Trujillo on 02-12-2023 Cannabinoids Screen Ql (U) Positive Negative [facility] Comment on above: These are unconfirme d results and should not be used for legal purposes. Drug Cut-Off Concentration: AMPH 1000 ng/mL SAMARIA 200 ng/mL ARJUN 200 ng/mL COCM 300 ng/mL OP 300 ng/mL PCP 25 ng/mL THC 20 ng/mL Drug Screen,Urineon 02-13-20 Amphetamine Screen,Urine Negative Normal Negative [facility] Comment on above: Performed By: #### U RDS #### [facility] [address] [place] [address] [place] Barbiturate Screen,Urine Negative Normal Negative [facility] Comment on above: Performed By: #### U RDS #### [facility] [address] [place] [address] [place] Benzodiazepines Screen,Urine Negative Normal Negative [facility] Comment on above: Performed By: #### U RDS #### [facility] [address] [place] [address] [place] Cannabinoid Screen,Urine Positive High Negative [facility] Comment on above: Result Comment: Thes e are unconfirmed results and should not be used for legal purposes. Drug Cut-Off Concentration: AMPH 1000 ng/mL SAMARIA 200 ng/mL ARJUN 200 ng/mL COCM 300 ng/mL OP 300 ng/mL PCP 25 ng/mL THC 20 ng/mL PERFORMED BY: [place] [address] PATHOLOGIST VIRTUAL CLASSROOM MANAGER GERALD SALEH M.D. Performed By: #### U RDS #### [place] [address] [place] Cocaine Screen,Urine Negative Normal Negative [facility] Comment on above: Performed By: #### U RDS #### [place] [address] [place] Opiate Screen,Urine Positive High Negative [facility] Comment on above: Performed By: #### U RDS #### [address] Phencyclidine Screen,Urine Negative Normal Negative [facility] Comment on above: Performed By: #### U RDS #### [address] Opiates [Presence] in Urine by Screen methodOrdered By: Jaime Trujillo on 02-12-2023 Opiates Screen Ql (U) Positive Negative [facility] Phencyclidine Screen Ql (U)O rdered By: Jaime Trujillo on 02-12-2023 Phencyclidine Ql (U) Negative Negative [facility] XR cervical spine 2Von 02-12 XR cervical spine 2V [facility] [place] [address] XRay Report Signed Patient: Mary Aburto MR#: [id number] : 1960 Acct:[id number] Age/Sex: 63 / M ADM Date: 02/12/23 Loc: Room: [address] [place] [address] Type: ADM IN Attending Dr: Antwon Hastings MD Copies to: Antwon Hastings MD Ordering Provider: Antwon Hastings MD Date of Service: 02/12/23 XR/XR cervical spine 2V: . XR cervical spine 2V 02/12/2023 10:08 AM SIGNS AND SYMPTOMS: Posterior cervical decompression C6-C7 with fusion PROTOCOLS: Intraoperative views of the cervical spine including both fluoroscopic and tomographic images COMPARISON: 10/23/2022 FINDINGS: Intraoperative views demonstrate pre-existing anterior and posterior fusion hardware with a surgical defect over the spinous processes and hardware localization between the C5 T2 spinous processes in the midline. Cumulative Air Kerma in mGy: 1300 mGy XR/XR cervical spine 2V IMPRESSION: Intraoperative views demonstrate pre-existing anterior and posterior fusion hardware with a surgical defect over the spinous processes and hardware localization between the C5 T2 spinous processes in the midline. Impression dictated by: Thomas Justice M.D.02/12/2023 11:19 AM Dictation Location: [place] [address] Transcribed By: [facility] 02/12/231118 Dictated By: Thomas Justice II, MD 02/12/231116 Signed By: 02/12/23 111 Normal [facility] Basic Metabolic Panelon 04-0 Anion gap [Moles/Vol] 7.9 mmol/L Normal 6.0-15.0 [facility] Comment on above: Performed By: #### B MP, CBC #### [address] Calcium [Mass/Vol] 8.9 mg/dL Normal 8.6-10.3 [facility] Comment on above: Result Comment: PERF ORMED BY: [place] [address] PATHOLOGIST VIRTUAL CLASSROOM MANAGER GERALD SALEH M.D. Performed By: #### B MP, CBC #### [facility] [address] [place] [address] [place] Chloride [Moles/Vol] 105 mmol/L Normal 98-107 [facility] Comment on above: Performed By: #### B MP, CBC #### [facility] [address] [place] [id number] [place] CO2 [Moles/Vol] 27.7 mmol/L Normal 21.0-31.0 [facility] Comment on above: Performed By: #### B MP, CBC #### [facility] [address] [place] [id number] [place] Creatinine [Mass/Vol] 0.92 mg/dL Normal 0.70-1.30 [facility] Comment on above: Performed By: #### B MP, CBC #### [facility] [address] [place] [address] [place] GFR/1.73 sq M.predicted MDRD (S/P/Bld) [Vol rate/Area] mL/min/{1.73_m2} Normal [facility] Comment on above: Performed By: #### B MP, CBC #### [facility] [address] Glucose [Mass/Vol] 92 mg/dL Normal 70-100 [facility] Comment on above: Result Comment: [facility] Glucose Reference Range is dependent on time and content of last meal. Glucose of more than 200 mg/dL in a nonstressed, ambulatory subject supports the diagnosis of Diabetes Mellitus. ADA recommended reference range Performed By: #### B MP, CBC #### [facility] [address] [place] [address] [place] Potassium [Moles/Vol] 4.6 mmol/L Normal 3.5-5.1 [facility] Comment on above: Performed By: #### B MP, CBC #### [facility] [address] [place] [address] [place] Sodium [Moles/Vol] 136 mmol/L Normal 136-145 [facility] Comment on above: Performed By: #### B MP, CBC #### [facility] [address] [place] [address] [place] Urea nitrogen [Mass/Vol] 11 mg/dL Normal 7-25 [facility] Comment on above: Performed By: #### B MP, CBC #### [facility] [address] [place] [address] [place] Basophils Auto (Bld) [#/Vol] Ordered By: Antwon Hastings on 01-29-2023 Basophils (Bld) [#/Vol] 0.1 10*3/uL 0.0-0.2 [facility] Basophils/100 WBC Auto (Bld) Ordered By: Antwon Hastings on 01-29-2023 Basophils/100 WBC (Bld) 0.8 % . [facility] Calcium [Mass/volume] in Ser um or PlasmaOrdered By: Antwon Hastings on 01-29-2023 Calcium [Mass/Vol] 8.9 mg/dL 8.6-10.3 [facility] Carbon dioxide, total [Moles /volume] in Serum or PlasmaOrdered By: Antwon Hastings on 01-29-2023 CO2 [Moles/Vol] 27.7 mmol/L 21.0-31.0 [facility] Chloride [Moles/volume] in S serena or PlasmaOrdered By: Antwon Hastings on 01-29-2023 Chloride [Moles/Vol] 105 mmol/L 98-107 [facility] Complete Blood Count Auto Di ffon 01-29-2023 Basophils (Bld) [#/Vol] 0.1 10*3/uL Normal 0.0-0.2 [facility] Comment on above: Result Comment: PERF ORMED BY: [place] [address] PATHOLOGIST VIRTUAL CLASSROOM MANAGER GERALD SALEH M.D. Performed By: #### B MP, CBC #### [facility] [address] [place] [address] [place] Basophils/100 WBC (Bld) 0.8 % Normal . [facility] Comment on above: Performed By: #### B MP, CBC #### [facility] [address] [place] [address] [place] Eosinophils (Bld) [#/Vol] 0.2 10*3/uL Normal 0.0-0.45 [facility] Comment on above: Performed By: #### B MP, CBC #### [facility] [address] [place] [address] [place] Eosinophils/100 WBC (Bld) 2.8 % Normal . [facility] Comment on above: Performed By: #### B MP, CBC #### [facility] [address] [place] [address] [place] Erythrocyte distribution width (RBC) [Ratio] 12.8 % Normal 12.0-14.8 [facility] Comment on above: Performed By: #### B MP, CBC #### [facility] [address] Hematocrit (Bld) [Volume fraction] 42.1 % Normal 38.8-50.0 [facility] Comment on above: Performed By: #### B MP, CBC #### [facility] [address] Hemoglobin (Bld) [Mass/Vol] 14.4 g/dL Normal 13.0-17.0 [facility] Comment on above: Performed By: #### B MP, CBC #### [facility] [address] Lymphocytes (Bld) [#/Vol] 2.0 10*3/uL Normal 1.00-4.8 [facility] Comment on above: Performed By: #### B MP, CBC #### [address] Lymphocytes/100 WBC (Bld) 27.3 % Normal . [facility] Comment on above: Performed By: #### B MP, CBC #### [address] MCH (RBC) [Entitic mass] 34.0 pg Normal 27.5-35.2 [facility] Comment on above: Performed By: #### B MP, CBC #### [address] MCV (RBC) [Entitic vol] 99.8 fL Normal 83.5-101 [facility] Comment on above: Performed By: #### B MP, CBC #### [address] Mean Corpuscular HGB Conc 34.1 g/dL Normal 32.5-35.6 [facility] Comment on above: Performed By: #### B MP, CBC #### [address] Monocytes (Bld) [#/Vol] 0.8 10*3/uL Normal 0.0-0.8 [facility] Comment on above: Performed By: #### B MP, CBC #### [facility] [address] [place] [address] [place] Monocytes/100 WBC (Bld) 11.1 % Normal . [facility] Comment on above: Performed By: #### B MP, CBC #### [facility] [address] Neutrophils (Bld) [#/Vol] 4.3 10*3/uL Normal 1.8-7.7 [facility] Comment on above: Performed By: #### B MP, CBC #### [facility] [address] Neutrophils/100 WBC (Bld) 58.0 % Normal . [facility] Comment on above: Performed By: #### B MP, CBC #### [facility] [address] NRBC% 0.2 /100{WBC} Normal 0-0.5 [facility] Comment on above: Performed By: #### B MP, CBC #### [facility] [address] Platelet mean volume (Bld) [Entitic vol] 7.2 fL Normal 6.6-10.1 [facility] Comment on above: Performed By: #### B MP, CBC #### [facility] [address] [place] [address] [place] Platelets (Bld) [#/Vol] 281 10*3/uL Normal 150-450 [facility] Comment on above: Performed By: #### B MP, CBC #### [facility] [address] [place] [address] [place] RBC (Bld) [#/Vol] 4.22 10*6/uL Normal 3.90-5.60 [facility] Comment on above: Performed By: #### B MP, CBC #### [facility] [address] WBC (Bld) [#/Vol] 7.4 10*3/uL Normal 4.1-10.5 [facility] Comment on above: Performed By: #### B MP, CBC #### [facility] [address] [place] [id number] [facility] Creatinine [Mass/volume] in Serum or PlasmaOrdered By: Antwon Hastings on 01-29-2023 Creatinine [Mass/Vol] 0.92 mg/dL 0.70-1.30 [facility] ECG 12 lead ECGon 01-29-2023 ECG 12 lead ECG [facility] [place] [address] [place] [address] Electrocardiograph Report Signed Patient: Mary Aburto MR#: [id number] : 1960 Acct:[id number] Age/Sex: 63 / M ADM Date: 01/29/23 Loc: PS Room: Type: [facility] Attending Dr: Antwon Hastings MD Ordering Provider: Antwon Hastings MD Date of Service: 01/29/2301/18/1610 ECG/ECG 12 lead ECG: surgery on 02-12-2023 Copies to: Test Reason : Blood Pressure : / mmHG Vent. Rate : 058 BPM Atrial Rate : 058 BPM P-R Int : 146 ms QRS Dur : 090 ms QT Int : 402 ms P-R-T Axes : 065 080 079 degrees QTc Int : 394 ms Sinus bradycardia Otherwise normal ECG When compared with ECG of 28-FEB-2022 14:59, No significant change was found Confirmed by OLIVERIO WYMAN [facility] ([id number] on 01/30/2023 5:08:08 PM Referred By: VENKATA Electronically Signed By:JULISSA DURON MD [facility] Transcribed By: [facility] Signed By Rigo Duron MD 01/30/23 1708 Normal [facility] Eosinophils Auto (Bld) [#/Vo l]Ordered By: Antwon Hastings on 01-29-2023 Eosinophils (Bld) [#/Vol] 0.2 10*3/uL 0.0-0.45 [facility] Eosinophils/100 WBC Auto (Bl d)Ordered By: Anwton Hastings on 01-29-2023 Eosinophils/100 WBC (Bld) 2.8 % . [facility] Erythrocyte distribution wid th Auto (RBC) [Ratio]Ordered By: Antwon Hastings on 01-29-2023 Erythrocyte distribution width (RBC) [Ratio] 12.8 % 12.0-14.8 [facility] Glucose [Mass/volume] in Ser um or PlasmaOrdered By: Antwon Hastings on 01-29-2023 Glucose [Mass/Vol] 92 mg/dL 70-100 [facility] Comment on above: ADA recommended refe rence rangeRandom Glucose Reference Range is dependent on time and content of last meal. Glucose of more than 200 mg/dL in a nonstressed, ambulatory subject supports the diagnosis of Diabetes Mellitus. Hematocrit Auto (Bld) [Volum e fraction]Ordered By: Antwon Hastings on 01-29-2023 Hematocrit (Bld) [Volume fraction] 42.1 % 38.8-50.0 [facility] Hemoglobin [Mass/volume] in BloodOrdered By: Antwon Hastings on 01-29-2023 Hemoglobin (Bld) [Mass/Vol] 14.4 g/dL 13.0-17.0 [facility] Leukocytes [#/volume] correc carlos for nucleated erythrocytes in Blood by Automated counOrdered By: Antwon Hastings on 01-29-2023 WBC corrected for nucl RBC Auto (Bld) [#/Vol] 7.4 10*3/uL 4.1-10.5 [facility] Lymphocytes Auto (Bld) [#/Vo l]Ordered By: Antwon Hastings on 01-29-2023 Lymphocytes (Bld) [#/Vol] 2.0 10*3/uL 1.00-4.8 [facility] Lymphocytes/100 WBC Auto (Bl d)Ordered By: Antwon Hastings on 01-29-2023 Lymphocytes/100 WBC (Bld) 27.3 % . [facility] MCH Auto (RBC) [Entitic mass ]Ordered By: Antwon Hastings on 01-29-2023 MCH (RBC) [Entitic mass] 34.0 pg 27.5-35.2 [facility] MCHC Auto (RBC) [Mass/Vol]Or dered By: Antwon Hastings on 01-29-2023 MCHC (RBC) [Mass/Vol] 34.1 g/dL 32.5-35.6 [facility] MCV Auto (RBC) [Entitic vol] Ordered By: Antwon Hastings on 01-29-2023 MCV (RBC) [Entitic vol] 99.8 fL 83.5-101 [facility] [facility] Auto (Bld) [#/Vol] Ordered By: Antwon Hastings on 01-29-2023 Monocytes (Bld) [#/Vol] 0.8 10*3/uL 0.0-0.8 [facility] Monocytes/100 WBC Auto (Bld) Ordered By: Antwon Hastings on 01-29-2023 Monocytes/100 WBC (Bld) 11.1 % . [facility] Neutrophils Auto (Bld) [#/Vo l]Ordered By: Antwon Hastings on 01-29-2023 Neutrophils (Bld) [#/Vol] 4.3 10*3/uL 1.8-7.7 [facility] Neutrophils/100 WBC Auto (Bl d)Ordered By: Antwon Hastings on 01-29-2023 Neutrophils/100 WBC (Bld) 58.0 % . [facility] No Panel InformationOrdered By: Antwon Hastings on 01-29-2023 Estimated GFR (CKD-EPI) > 60.0 mL/Min [facility] Creatinine Clearance (Chem N/A [facility] Nucleated erythrocytes [Pres ence] in Blood by Automated countOrdered By: Antwon Hastings on 01-29-2023 Nucleated RBC Auto Ql (Bld) 0.2 /100{WBC} 0-0.5 [facility] Platelet mean volume Auto (B ld) [Entitic vol]Ordered By: Antwon Hastings on 01-29-2023 Platelet mean volume (Bld) [Entitic vol] 7.2 fL 6.6-10.1 [facility] Platelets Auto (Bld) [#/Vol] Ordered By: Antwon Hastings on 01-29-2023 Platelets (Bld) [#/Vol] 281 10*3/uL 150-450 [facility] Potassium [Moles/volume] in Serum or PlasmaOrdered By: Antwon Hastings on 01-29-2023 Potassium [Moles/Vol] 4.6 mmol/L 3.5-5.1 [facility] RBC Auto (Bld) [#/Vol]Ordere d By: Antwon Hastings on 01-29-2023 RBC (Bld) [#/Vol] 4.22 10*6/uL 3.90-5.60 [facility] Serum or plasma anion gap de terminationOrdered By: Antwon Hastings on 01-29-2023 Anion gap [Moles/Vol] 7.9 mmol/L 6.0-15.0 [facility] Sodium [Moles/volume] in Ser um or PlasmaOrdered By: Antwon Hastings on 01-29-2023 Sodium [Moles/Vol] 136 mmol/L 136-145 [facility] Urea nitrogen [Mass/volume] in Serum or PlasmaOrdered By: Antwon Hastings on 01-29-2023 Urea nitrogen [Mass/Vol] 11 mg/dL 7-25 [facility] WBC Auto (Bld) [#/Vol]Ordere d By: Antwon Hastings on 01-29-2023 WBC (Bld) [#/Vol] 7.4 10*3/uL 4.1-10.5 [facility] Creatinine (Bld) [Mass/Vol]O rdered By: Antwon Hastings on 12-25-2022 Creatinine [Mass/Vol] 1.3 mg/dL 0.6-1.3 [facility] Comment on above: ER/ESD physician is notified/shown all ISTAT results.Critical values may be confirmed by laboratory testing ifdeemed necessary by ER attending doctor. ISTAT XRay CREon 12-25-2022 Creatinine [Mass/Vol] 1.3 mg/dL Normal 0.6-1.3 [facility] Comment on above: Result Comment: ER/E SD physician is notified/shown all ISTAT results. Critical values may be confirmed by laboratory testing if deemed necessary by ER attending doctor. Performed By: #### I SCRE #### [address] Point of Care testing , ISTAT GFR ( > 60 Normal [facility] Comment on above: Result Comment: GFR estimated reference range: According to KDOQI guidelines, <60 ml/min/1.73m2 is sufficient to diagnose a patient with chronic kidney disease. PERFORMED BY: [place] [address] PATHOLOGIST [employer] GERALD SALEH M.D. Performed By: #### I SCRE #### [address] Point of Care testing , ISTAT GFR (Non- Am 56 Normal [facility] Comment on above: Performed By: #### I SCRE #### [facility] [address] Point of Care testing , MR cervical spine wo/w conon 12-25-2022 MR cervical spine wo/w con [facility] [place] [address] [place] [address] MRI Report Signed Patient: Mary Aburto MR#: [id number] : 1960 Acct:[id number] Age/Sex: 62 / M ADM Date: 12/25/22 Loc: Room: Type: [facility] Attending Dr: Antwon Hastings MD Copies to: Antwon Hastings MD Ordering Provider: Antwon Hastings MD Date of Service: 12/25/22 MR/MR cervical spine wo/w con: M47.12 MR cervical spine wo/w con 12/25/2022 1:56 PM SIGNS AND SYMPTOMS: Severe neck pain radiating down right arm with weakness, tingling, and numbness PROTOCOL: Multiplanar multisequence MR images of the cervical spine were obtained with and without IV contrast CONTRAST: 13 mL of intravenous ProHance COMPARISON: 10/23/2022 and 02/08/2022 FINDINGS: There is straightening and mild reversal of the normal cervical lordosis. The bones are in anatomic alignment otherwise. There is preservation of vertebral body heights. There is posterior fusion and decompression from C2 through C5. There is anterior fusion hardware from C5 through T1. There is no change in alignment. The marrow signal is within normal limits. The cord is normal in signal. No epidural or paraspinous fluid collection is appreciated. The visualized paraspinous soft tissues are within normal limits. The prevertebral soft tissues are within normal limits. There is no abnormal postcontrast enhancement. At C2-C3: There is a normal disc, central canal, and neural foramen. At C3-C4: There is a normal disc, central canal, and neural foramen. At C4-C5: There is facet hypertrophy with mild uncovertebral joint spurring contributing to moderate neural foraminal narrowing bilaterally. No spinal canal narrowing. At C5-C6: There is facet hypertrophy with mild uncovertebral joint spurring contributing to mild neural foraminal narrowing bilaterally. No spinal canal narrowing. At C6-C7: There is facet hypertrophy with mild uncovertebral joint spurring contributing to moderate neural foraminal narrowing bilaterally. No spinal canal narrowing. At C7-T1: There is a broad-based disc bulge with facet and negative joint degenerative change contributing to moderate to severe bilateral neural foraminal narrowing with mild spinal canal narrowing. MR/MR cervical spine wo/w con IMPRESSION: There is posterior fusion and decompression from C2 through C5. There is anterior fusion hardware from C5 through T1. There is no change in alignment. Degenerative changes contribute to neural foraminal narrowing bilaterally from C4-C5 through the C7- T1 levels. Neural foraminal narrowing appears to be greatest at C4-C5. No abnormal postcontrast enhancement. No evidence of cord compression or cord signal abnormality. Impression dictated by: Thomas Justice M.D.12/25/2022 5:05 PM Dictation Location: [facility]--13 Transcribed By: [facility] 12/25/22 170 Dictated By: Thomsa Justice II, MD 12/25/22 3338 Signed By: 12/25/221704 [facility] MR cervical spine wo/w con [facility] [employer] Other MR cervical spine wo/w con [facility] [employer] Other MR cervical spine wo/w con [address] [place] [address] [employer] Other MR cervical spine wo/[place] [address] [employer] Other MR cervical spine wo/w con MRI Report [employer] Other MR cervical spine wo/w con Signed [employer] Other MR cervical spine wo/w con Patient: Mary Aburto MR#: [id number] [employer] Other MR cervical spine wo/w con : 1960 Acct:[id number] [employer] Other MR cervical spine wo/w con Age/Sex: 62 / M ADM Date: 12/25/22 [employer] Other MR cervical spine wo/w con Loc: MR Room: Type: [facility] [employer] Other MR cervical spine wo/w con Attending Dr: Antwon Hastings MD [employer] Other MR cervical spine wo/w con Copies to: Antwon Hastings MD [employer] Other MR cervical spine wo/w con Ordering Provider: Antwon Hastings MD [employer] Other MR cervical spine wo/w con Date of Service: 12/25/22 [employer] Other MR cervical spine wo/w con MR/MR cervical spine wo/w con: M47.12 [employer] Other MR cervical spine wo/w con MR cervical spine wo/w con 12/25/2022 1:56 PM [employer] Other MR cervical spine wo/w con SIGNS AND SYMPTOMS: Severe neck pain radiating down right arm with weakness, tingling, and numbness [employer] Other MR cervical spine wo/w con PROTOCOL: Multiplanar multisequence MR images of the cervical spine were obtained with and without [employer] Other MR cervical spine wo/w con IV contrast [employer] Other MR cervical spine wo/w con CONTRAST: 13 mL of intravenous ProHance [employer] Other MR cervical spine wo/w con COMPARISON: 10/23/2022 and 02/08/2022 [employer] Other MR cervical spine wo/w con FINDINGS: There is straightening and mild reversal of the normal cervical lordosis. The bones are in [employer] Other MR cervical spine wo/w con anatomic alignment otherwise. There is preservation of vertebral body heights. There is posterior [employer] Other MR cervical spine wo/w con fusion and decompression from C2 through C5. There is anterior fusion hardware from C5 through T1. [employer] Other MR cervical spine wo/w con There is no change in alignment. The marrow signal is within normal limits. The cord is normal in [employer] Other MR cervical spine wo/w con signal. No epidural or paraspinous fluid collection is appreciated. The visualized paraspinous soft [employer] Other MR cervical spine wo/w con tissues are within normal limits. The prevertebral soft tissues are within normal limits. There is [employer] Other MR cervical spine wo/w con no abnormal postcontrast enhancement. [employer] Other MR cervical spine wo/w con At C2-C3: There is a normal disc, central canal, and neural foramen. [employer] Other MR cervical spine wo/w con At C3-C4: There is a normal disc, central canal, and neural foramen. [employer] Other MR cervical spine wo/w con At C4-C5: There is facet hypertrophy with mild uncovertebral joint spurring contributing to moderate [employer] Other MR cervical spine wo/w con neural foraminal narrowing bilaterally. No spinal canal narrowing. [employer] Other MR cervical spine wo/w con At C5-C6: There is facet hypertrophy with mild uncovertebral joint spurring contributing to mild [employer] Other MR cervical spine wo/w con At C6-C7: There is facet hypertrophy with mild uncovertebral joint spurring contributing to moderate [employer] Other MR cervical spine wo/w con At C7-T1: There is a broad-based disc bulge with facet and negative joint degenerative change [employer] Other MR cervical spine wo/w con contributing to moderate to severe bilateral neural foraminal narrowing with mild spinal canal [employer] Other MR cervical spine wo/w con narrowing. [employer] Other MR cervical spine wo/w con MR/MR cervical spine wo/w con [employer] Other MR cervical spine wo/w con IMPRESSION: [employer] Other MR cervical spine wo/w con There is posterior fusion and decompression from C2 through C5. There is anterior fusion hardware [employer] Other MR cervical spine wo/w con from C5 through T1. There is no change in alignment. [employer] Other MR cervical spine wo/w con Degenerative changes contribute to neural foraminal narrowing bilaterally from C4-C5 through the C7- [employer] Other MR cervical spine wo/w con T1 levels. Neural foraminal narrowing appears to be greatest at C4-C5. [employer] Other MR cervical spine wo/w con No evidence of cord compression or cord signal abnormality. [employer] Other MR cervical spine wo/w con Impression dictated by: Thomas Justice M.D.12/25/2022 5:05 PM [employer] Other MR cervical spine wo/w con Dictation Location: [place] [address] [employer] Other MR cervical spine wo/w con Transcribed By: BETHANY 12/25/22 1705 [employer] Other MR cervical spine wo/w con Dictated By: Thomas Justice II, MD 12/25/22 1659 [employer] Other MR cervical spine wo/w con Signed By: [employer] Other MR cervical spine wo/w con 12/25/22 1705 [employer] Other No Panel InformationOrdered By: Antwon Hastings on 12-25-2022 POC Estimated GFR > 60 [facility] Comment on above: GFR estimated refere nce range: According to KDOQI guidelines, <60 ml/min/1.73m2 is sufficient to diagnose a patient with chronic kidney disease. POC Estimated GFR Non- Amer 56 [facility] CBC AUTO DIFFon 11-13-2022 BASO # 0.0 103/ul Normal 0.0-0.1 [facility] Comment on above: Performed By: #### C BC #### [facility] [address] [address] [address] Edilson Mortensen Basophils/100 WBC (Bld) 0.4 % Normal 0.2-2.0 [facility] Comment on above: Performed By: #### C BC #### [facility] [address] [address] [address] Edilson Mortensen EO # 0.2 103/ul Normal 0.0-0.7 [facility] Comment on above: Performed By: #### C BC #### [facility] [address] [address] [address] Edilson Mortensen Eosinophils/100 WBC (Bld) 2.1 % Normal 0.9-7.0 [facility] Comment on above: Performed By: #### C BC #### [facility] [address] [address] [address] Edilson Mortensen Erythrocyte distribution width (RBC) [Ratio] 13.0 % Normal 11.0-15.0 [facility] Comment on above: Performed By: #### C BC #### [facility] [address] [address] [address] Edilson Mortensen Hematocrit (Bld) [Volume fraction] 41.6 % Critically low 42.0-54.0 [facility] Comment on above: Performed By: #### C BC #### [facility] [address] [address] [address] Edilson Mortensen Hemoglobin (Bld) [Mass/Vol] 14.5 g/dL Normal 14.0-18.0 [facility] Comment on above: Performed By: #### C BC #### [facility] [address] [place] [address] Dr. Edilson Mortensen IG # 0.05 10e3/ul Critically high 0.00-0.03 [facility] Comment on above: Performed By: #### C BC #### [facility] [address] [address] [address] Edilson Mortensen IG % 0.6 % Critically high 0.0-0.5 [facility] Comment on above: Performed By: #### C BC #### [facility] [address] [place] [address] Dr. Edilson Mortensen LYMPH # 2.2 103/ul Normal 1.2-3.8 [facility] Comment on above: Performed By: #### C BC #### [facility] [address] [place] [address] Dr. Edilson Mortensen Lymphocytes/100 WBC (Bld) 23.7 % Normal 20.5-60.0 [facility] Comment on above: Performed By: #### C BC #### [facility] [address] [place] [address] Dr. Edilson Mortensen MANUAL DIFF REQ NO Normal [facility] Comment on above: Performed By: #### C BC #### [facility] [address] [place] [address] Dr. Edilson Mortensen MCH (RBC) [Entitic mass] 34.0 pg Normal 25.9-34.0 [facility] Comment on above: Performed By: #### C BC #### [facility] [address] [place] [address] Dr. Edilson Mortensen MCHC (RBC) [Mass/Vol] 34.9 g/dL Normal 29.9-35.2 [facility] Comment on above: Performed By: #### C BC #### [facility] [address] [place] [address] Dr. Edilson Mortensen MCV (RBC) [Entitic vol] 97.7 fL Critically high 80.0-94.0 [facility] Comment on above: Performed By: #### C BC #### [facility] [address] [address] [address] Edilson Mortensen MONO # 1.1 103/ul Critically high 0.3-0.8 [facility] Comment on above: Performed By: #### C BC #### [facility] [address] [address] [address] Edilson Mortensen Monocytes/100 WBC (Bld) 12.6 % Critically high 1.7-12.0 [facility] Comment on above: Performed By: #### C BC #### [facility] [address] [address] [address] Edilson Mortensen NEUT # 5.5 103/ul Normal 1.4-6.5 [facility] Comment on above: Performed By: #### C BC #### [facility] [address] [address] [address] Edilson Mortensen Neutrophils/100 WBC (Bld) 60.6 % Normal 43.0-75.0 [facility] Comment on above: Performed By: #### C BC #### [facility] [address] [address] [address] Edilson Mortensen Platelet mean volume (Bld) [Entitic vol] 8.8 fL Critically low 9.5-13.5 [facility] Comment on above: Performed By: #### C BC #### [facility] [address] [address] [address] Edilson Mortensen PLT 267 103/ul Normal 150-450 [facility] Comment on above: Performed By: #### C BC #### [facility] [address] [address] [address] Edilson Mortensen RBC 4.26 106/ul Critically low 4.70-6.10 [facility] Comment on above: Performed By: #### C BC #### [facility] [address] [address] [address] Edilson Mortensen WBC 9.1 103/ul Normal 4.0-11.0 [facility] Comment on above: Performed By: #### C BC #### [facility] [address] [place] [address] Dr. Edilson Mortensen CTA CHEST WO W CONon 023 CTA CHEST WO W CON EXAMINATION: CTA LUISA ST WO W CON HISTORY: Chest pain for 2 weeks. History of prior left-sided PE. COMPARISON: 04/14/2022. TECHNIQUE: CT angiography of the pulmonary arteries following the administration of intravenous contrast. 3-D, coronal and sagittal MIP (maximum intensity projection) images were performed. Dose reduction techniques were achieved by using automated exposure control and/or adjustment of mA and/or kV according to patient size and/or use of iterative reconstruction technique. FINDINGS: No evidence of pulmonary arterial embolism. There has been interval resolution of previously noted pulmonary arterial embolism. Ascending thoracic aorta is minimally dilated measuring 4.2 cm diameter. No enlarged lymph nodes within the chest. Bilateral bronchial wall thickening consistent with inflammation. Minimal biapical pulmonary blebs. The pleural spaces are clear. Diffuse demineralization. IMPRESSION: 1. Currently, no pulmonary arterial emboli. Interval resolution of previously noted pulmonary arterial embolism. 2. Bilateral bronchial wall thickening consistent with inflammation. 3. Minimal biapical pulmonary blebs. 4. Mild fusiform aneurysmal dilatation of the ascending thoracic aorta maximally measuring 4.2 cm. Electronically authenticated by: AARON MORA Date: 2022-11-13 20:14 Normal [facility] PROF CHEM 8 (BAS METB)on Anion gap [Moles/Vol] 13.9 mmol/L Normal [facility] Comment on above: Performed By: #### T HYLC #### [facility] [address] [place] [address] Dr. Edilson Mortensen Calcium [Mass/Vol] 8.6 mg/dL Normal 8.5-10.1 [facility] Comment on above: Performed By: #### T HYLC #### [facility] [address] [place] [address] Dr. Edilson Mortensen Chloride [Moles/Vol] 103 mmol/L Normal 98-107 [facility] Comment on above: Performed By: #### T HYLC #### [facility] [address] [place] [address] Dr. Edilson Mortensen CO2 [Moles/Vol] 26.8 mmol/L Normal 21.0-32.0 [facility] Comment on above: Performed By: #### T HYLC #### [facility] [address] [address] [address] Edilson Mortensen Creatinine [Mass/Vol] 1.46 mg/dL Critically high 0.70-1.30 [facility] Comment on above: Performed By: #### T HYLC #### [facility] [address] [address] [address] Edilson Mortensen EGFR-AF TRINIDADIAN 60 mL/min/1.73m2 Normal >=60 [facility] Comment on above: Performed By: #### T HYLC #### [facility] [address] [place] [address] Dr. Edilson Mortensen EGFR-NON AF TRINIDADIAN 49 mL/min/1.73m2 Critically low >=60 [facility] Comment on above: Performed By: #### T HYLC #### [facility] [address] [address] [address] Edilson Mortensen Glucose [Mass/Vol] 86 mg/dL Normal 74-106 [facility] Comment on above: Performed By: #### T HYLC #### [facility] [address] [place] [address] Dr. Edilson Mortensen Potassium [Moles/Vol] 3.7 mmol/L Normal 3.5-5.1 [facility] Comment on above: Performed By: #### T HYLC #### [facility] [address] [address] [address] Edilson Mortensen Sodium [Moles/Vol] 140 mmol/L Normal 136-145 [facility] Comment on above: Performed By: #### T HYLC #### [facility] [address] [address] [address] Edilson Mortensen Urea nitrogen [Mass/Vol] 12.0 mg/dL Normal 7.0-18.0 [facility] Comment on above: Performed By: #### T HYLC #### [facility] [address] [address] [address] Edilson Mortensen Urea nitrogen/Creatinine [Mass ratio] 8.2 mg/mg Normal [facility] Comment on above: Performed By: #### T HYLC #### [facility] [address] [place] [address] Dr. Edilson Mortensen PROTIMEon 11-13-2022 INR Coag (PPP) [Relative time] {INR} Normal [facility] Comment on above: Performed By: #### I SAMEER PSASC, VITB12 #### [facility] [address] [place] [address] Dr. Edilson Mortensen INR GUIDELINES SEE BELOW Normal [facility] Comment on above: Result Comment: GERADRO RED INR: 2.0 - 3.0 CONDITIONS NOT LISTED BELOW 2.5 - 3.5 FOR PROSTHETIC HEART VALVE REPLACEMENT 2.5 - 3.5 RECURRENT THROMBOSIS Performed By: #### I SAMEER, PSASC, VITB12 #### [facility] [address] [place] [address] Dr. Edilson Mortensen PT Coag (PPP) [Time] 9.8 s Normal 9.0-11.6 [facility] Comment on above: Performed By: #### I SAMEER PSASC, VITB12 #### [facility] [address] [place] [address] Dr. Edilson Mortensen PTTon 11-13-2022 aPTT Coag (Bld) [Time] 27.0 s Normal 22.3-36.2 [facility] Comment on above: Performed By: #### I SAMEER PSASC, VITB12 #### [facility] [address] [place] [address] Dr. Edilson Mortensen TROPONIN, HIGH SENSITIVITYon 11-13-2022 HSTROP 4.1 pg/mL Normal 4.0-76.1 [facility] Comment on above: Result Comment: CUT- OFF POINTS HAVE BEEN ESTABLISHED BASED ON THE FOURTH UNIVERSAL DEFINITIONS OF MYOCARDIAL INFARCTION. THE UPPER REFERENCE LIMIT (URL) OF TROPONIN, DEFINED THE 99TH PERCENTILE OF cTnI DISTRIBUTION IN A REFERENCE POPULATION, HAS BEEN CONFIRMED THE DECISION THRESHOLD FOR MO DIAGNOSIS. Performed By: #### T HYLC #### [facility] [address] [place] [address] Dr. Edilosn Mortensen XR cerv spine AP/LAT/FLX/EXT on 10-24-2022 XR cerv spine AP/LAT/FLX/EXT [facility] [place] [address] [place], [place] [id number] XRay Report Signed Patient: Mary Aburto MR#: [id number] : 1960 Acct:[id number] Age/Sex: 62 / M ADM Date: 10/23/22 Loc: XD Room: Type: [facility] Attending Dr: Antwon Hastings MD Copies to: Antwon Hastings MD Ordering Provider: Antwon Hastings MD Date of Service: 10/23/22 XR/XR cerv spine AP/LAT/FLX/EXT: M47.12 CERVICAL SPINE 6 views: CLINICAL HISTORY: Follow-up cervical spine surgery. Into right shoulder. COMPARISON: Cervical spine 05/11/2022 FINDINGS: Posterior fusion hardware C2-C5 as well as anterior hardware fixation C4-C7 without evidence of hardware complication. Vertebral body heights appear maintained. No significant change in disc height loss. No pathological motion is seen on flexion or extension views. No prevertebral soft tissue swelling. XR/XR cerv spine AP/LAT/FLX/EXT IMPRESSION: NO EVIDENCE OF HARDWARE COMPLICATION. Impression dictated by: Jorge Dimas Jr., D.OAnya10/24/2022 9:38 AM Dictation Location: [place] [address] Transcribed By: [facility] 10/24/22937 Dictated By: Jorge Dimas Jr, DO 10/24/2230 Signed By: 10/24/22937 [facility] US SCROTUMon 07-14-2022 US SCROTUM EXAMINATION: US SCRO LOCO HISTORY: Testosterone COMPARISON: No relevant comparison available. TECHNIQUE: High-resolution sonographic imaging of the scrotum and contents was performed. FINDINGS: The right testicle is normal in size, contour and echotexture measuring 4.7 x 2.8 x 2.5 cm. Normal color and Doppler flow. The right epididymis is normal in appearance. Area of anechoic echogenicity measuring 3 mm, cyst. Small right hydrocele. No varicocele. The left testicle is normal in size, contour and echotexture measuring 3.9 x 3.3 x 2.7 cm. Normal color and Doppler flow. The left epididymis is normal in appearance. Area of anechoic echogenicity measuring 4.7 mm, cyst. Small left hydrocele. No varicocele IMPRESSION: Mild bilateral hydroceles otherwise unremarkable exam Electronically authenticated by: SAMANTA PLASCENCIA Date: 2022-07-14 07:15 Normal [facility] TESTOSTERONE, TOTALon 2021 Testosterone [Mass/Vol] 1038 ng/dL Critically high 264-916 [facility] Comment on above: Result Comment: Adul t male reference interval is based on a population of healthy nonobese males (BMI <30) between 19 and 39 years old. My et.al. JCEM 2017,102;8647-6812. PMID: [id number]. Performed By: #### T ESTTOT #### [facility] [address] [place] [address] Dr. Edilson Mortensen INSULINon 06-10-2022 Insulin 4.7 uIU/mL Normal 2.6-24.9 [facility] Comment on above: Performed By: #### I SAMEER, PSASC, VITB12 #### [facility] [address] [place] [address] [address] Edilson Mortensen T4, T3U, FTI LABCORPon 06-10 Free Thyroxine Index 2.3 Normal 1.2-4.9 [facility] Comment on above: Performed By: #### T HYLC #### [facility] [address] [place] [address] Dr. Edilson Mortensen T3 Uptake 29 % Normal 24-39 [facility] Comment on above: Performed By: #### T HYLC #### [facility] [address] [place] [address] [address] Edilson Mortensen T4 [Mass/Vol] 7.9 ug/dL Normal 4.5-12.0 [facility] Comment on above: Performed By: #### T HYLC #### [facility] [address] [place] [address] Dr. Edilson Mortensen TESTOSTERONE, TOTALon 2021 Testosterone [Mass/Vol] 1062 ng/dL Critically high 264-916 [facility] Comment on above: Result Comment: Adul t male reference interval is based on a population of healthy nonobese males (BMI <30) between 19 and 39 years old. My et.al. JCEM 2017,102;0144-1036. PMID: [id number]. Performed By: #### T ESTTOT #### [facility] [address] [place] [address] [address] Edilson Mortensen VIT D 25-OH LABCORPon 2021 Vitamin D, 25-Hydroxy 17.9 ng/mL Critically low 30.0-100.0 [facility] Comment on above: Result Comment: Isabel min D deficiency has been defined by the [employer] of [employer] and an Endocrine Society practice guideline as a level of serum 25-OH vitamin D less than 20 ng/mL (1,2). The Endocrine Society went on to further define vitamin D insufficiency as a level between 21 and 29 ng/mL (2). 1. IOM ([employer] of Medicine). 2010. Dietary reference intakes for calcium and D. [place]: The National Academies Press. 2. Gayla MF, Laura NC, Conner-Clay BARRIOS, et al. Evaluation, treatment, and prevention of vitamin D deficiency: an Endocrine Society clinical practice guideline. JCEM. 2010; 96(7):1911-30. Performed By: #### I SAMEER, PSASC, VITB12 #### [facility] [address] [place] [address] [address] Edilson Mortensen CBC AUTO DIFFon 06-09-2022 BASO # 0.0 103/ul Normal 0.0-0.1 [facility] Comment on above: Performed By: #### C BC #### [facility] [address] [place] [address] [address] Edilson Mortensen Basophils/100 WBC (Bld) 0.4 % Normal 0.2-2.0 [facility] Comment on above: Performed By: #### C BC #### [facility] [id number] Edilson Mortensen EO # 0.3 103/ul Normal 0.0-0.7 [facility] Comment on above: Performed By: #### C BC #### [facility] [address] [place] [address] Dr. Edilson Mortensen Eosinophils/100 WBC (Bld) 3.0 % Normal 0.9-7.0 [facility] Comment on above: Performed By: #### C BC #### [facility] [address] [place] [address] Dr. Edilson Mortensen Erythrocyte distribution width (RBC) [Ratio] 12.2 % Normal 11.0-15.0 [facility] Comment on above: Performed By: #### C BC #### [facility] [address] [place] [address] Dr. Edilson Mortensen Hematocrit (Bld) [Volume fraction] 46.0 % Normal 42.0-54.0 [facility] Comment on above: Performed By: #### C BC #### [facility] [address] [place] [address] Dr. dEilson Mortensen Hemoglobin (Bld) [Mass/Vol] 15.6 g/dL Normal 14.0-18.0 [facility] Comment on above: Performed By: #### C BC #### [facility] [address] [place] [address] Dr. Edilson Mortensen IG # 0.05 10e3/ul Critically high 0.00-0.03 [facility] Comment on above: Performed By: #### C BC #### [facility] [address] [place] [address] Dr. Edilson Mortensen IG % 0.5 % Normal 0.0-0.5 [facility] Comment on above: Performed By: #### C BC #### [facility] [address] [place] [address] Dr. Edilson Mortensen LYMPH # 2.6 103/ul Normal 1.2-3.8 [facility] Comment on above: Performed By: #### C BC #### [facility] [address] [place] [address] Dr. Edilson Mortensen Lymphocytes/100 WBC (Bld) 26.1 % Normal 20.5-60.0 [facility] Comment on above: Performed By: #### C BC #### [facility] [address] [place] [address] Dr. Edilson Mortensen MANUAL DIFF REQ NO Normal [facility] Comment on above: Performed By: #### C BC #### [facility] [address] [place] [address] Dr. Edilson Mortensen MCH (RBC) [Entitic mass] 33.6 pg Normal 25.9-34.0 [facility] Comment on above: Performed By: #### C BC #### [facility] [address] [place] [address] Dr. Edilson Mortensen MCHC (RBC) [Mass/Vol] 33.9 g/dL Normal 29.9-35.2 [facility] Comment on above: Performed By: #### C BC #### [facility] [address] [place] [address] Dr. Edilson Mortensen MCV (RBC) [Entitic vol] 99.1 fL Critically high 80.0-94.0 [facility] Comment on above: Performed By: #### C BC #### [facility] [address] [place] [address] Dr. Edilson Mortensen MONO # 1.2 103/ul Critically high 0.3-0.8 [facility] Comment on above: Performed By: #### C BC #### [facility] [address] [place] [address] Dr. Edilson Mortensen Monocytes/100 WBC (Bld) 12.2 % Critically high 1.7-12.0 [facility] Comment on above: Performed By: #### C BC #### [facility] [address] [place] [address] Dr. Edilson Mortensen NEUT # 5.8 103/ul Normal 1.4-6.5 [facility] Comment on above: Performed By: #### C BC #### [facility] [address] [place] [address] Dr. Edilson Mortensen Neutrophils/100 WBC (Bld) 57.8 % Normal 43.0-75.0 [facility] Comment on above: Performed By: #### C BC #### [facility] [address] [place] [address] [address] Edilson Mortensen Platelet mean volume (Bld) [Entitic vol] 8.3 fL Critically low 9.5-13.5 [facility] Comment on above: Performed By: #### C BC #### [facility] [address] [place] [address] [address] Edilson Mortensen PLT 272 103/ul Normal 150-450 [facility] Comment on above: Performed By: #### C BC #### [facility] [address] [place] [address] [address] Edilson Mortensen RBC 4.64 106/ul Critically low 4.70-6.10 [facility] Comment on above: Performed By: #### C BC #### [facility] [address] [place] [address] Dr. Edilson Mortensen WBC 10.0 103/ul Normal 4.0-11.0 [facility] Comment on above: Performed By: #### C BC #### [facility] [address] [place] [address] Dr. Edilson Mortensen DILANTINon 06-09-2022 Phenytoin [Mass/Vol] 14.6 ug/mL Normal 10.0-20.0 [facility] Comment on above: Performed By: #### I IRENA ESTRELLA, VITB12 #### [facility] [address] [place] [address] Dr. Edilson Mortensen GLYCOHEMOGLOBIN A1Con 2021 ADA RECOMMENDATION SEE BELOW Normal [facility] Comment on above: Result Comment: ADA RECOMMENDED LIMIT 4.0 - 6.0 ADA THERAPEUTIC TARGET < 7.0 ACTION SUGGESTED > 7.0 Performed By: #### I IRENA ESTRELLA VITB12 #### [facility] [address] [place] [address] Dr. Edilson Mortensen Glucose [Mass/Vol] 108 mg/dL Normal [facility] Comment on above: Performed By: #### I IRENA ESTRELLA, VITB12 #### [facility] [address] [place], [place] [id number] Dr. Edilson Mortensen HbA1c (Bld) [Mass fraction] 5.4 % Normal 4.5-6.2 [facility] Comment on above: Performed By: #### I SAMEER PSASC, VITB12 #### [facility] [address] [place] [address] [address] Edilson Mortensen IRONon 06-09-2022 Iron [Mass/Vol] 109.0 ug/dL Normal 65.0-175.0 [facility] Comment on above: Performed By: #### I SAMEER PSASC, VITB12 #### [facility] [address] [place] [address] Dr. Edilson Mortensen LIPID PROFILEon 06-09-2022 CHOL-HDL RATIO NORM SEE BELOW Normal [facility] Comment on above: Result Comment: 3.3 - 4.4 LOW RISK 4.4 - 7.1 AVERAGE RISK 7.1 - 11.0 MODERATE RISK >11.0 HIGH RISK Performed By: #### I SAMEER PSASC, VITB12 #### [facility] [address] [place] [address] Dr. Edilson Mortensen Cholesterol [Mass/Vol] 153 mg/dL Normal <=200 [facility] Comment on above: Performed By: #### I SAMEER PSASC, VITB12 #### [facility] [address] [place] [address] Dr. Edilson Mortensen Cholesterol in HDL [Mass/Vol] 56 mg/dL Normal 40-60 [facility] Comment on above: Performed By: #### I SAMEER PSASC, VITB12 #### [facility] [address] [place] [address] Dr. Edilson Mortensen Cholesterol in LDL [Mass/Vol] 75.0 mg/dL Normal [facility] Comment on above: Performed By: #### I SAMEER PSASC, VITB12 #### [facility] [address] [place] [address] Dr. Edilson Mortensen Cholesterol.total/Chol esterol in HDL [Mass ratio] 2.7 {ratio} Normal [facility] Comment on above: Performed By: #### I SAMEER PSASC, VITB12 #### [facility] [address] [place] [address] [address] Edilson Mortensen HDL NORMAL > or = 60 mg/dl - LO W CARDIOVASCULAR RISK <40 mg/dl - HIGH CARDIOVASCULAR RISK Normal [facility] Comment on above: Performed By: #### I SAMEER PSASC, VITB12 #### [facility] [address] [place] [address] [address] Edilson Mortensen LDL CALC NORMAL SEE BELOW Normal [facility] Comment on above: Result Comment: <100 mg/dl OPTIMAL 100 - 129 mg/dl NEAR OR ABOVE OPTIMAL 130 - 159 mg/dl BORDERLINE HIGH 160 - 189 mg/dl HIGH >190 mg/dl VERY HIGH Performed By: #### I SAMEER PSASC, VITB12 #### [facility] [address] [place] [address] [address] Edilson Mortensen Triglyceride [Mass/Vol] 110 mg/dL Normal <=150 [facility] Comment on above: Performed By: #### I SAMEER PSASC, VITB12 #### [facility] [address] [place] [address] [address] Edilson Mortensen VLDL CALC 22.0 mg/dL Normal [facility] Comment on above: Performed By: #### I SAMEER PSASC, VITB12 #### [facility] [address] [place] [address] Dr. Edilson Mortensen PROF 14(COMP METB)on 022 Albumin [Mass/Vol] 3.6 g/dL Normal 3.4-5.0 [facility] Comment on above: Performed By: #### I SAMEER PSASC, VITB12 #### [facility] [address] [place] [address] [address] Edilson Mortensen Albumin/Globulin [Mass ratio] 1.1 {ratio} Normal [facility] Comment on above: Performed By: #### I SAMEER, PSASC, VITB12 #### [facility] [address] [place] [address] [address] Edilson Mortensen ALP [Catalytic activity/Vol] 115 U/L Normal 46-116 [facility] Comment on above: Performed By: #### I SAMEER, PSASC, VITB12 #### [facility] [address] [place] [address] Dr. Edilson Mortensen ALT [Catalytic activity/Vol] 12 U/L Critically low 16-63 [facility] Comment on above: Performed By: #### I SAMEER, PSASC, VITB12 #### [facility] [address] [place] [address] Dr. Edilson Mortensen Anion gap [Moles/Vol] 10.6 mmol/L Normal [facility] Comment on above: Performed By: #### I SAMEER, PSASC, VITB12 #### [facility] [address] [place] [address] Dr. Edilson Mortensen AST [Catalytic activity/Vol] 11 U/L Critically low 15-37 [facility] Comment on above: Performed By: #### I SAMEER PSASC, VITB12 #### [facility] [address] [place] [address] Dr. Edilson Mortensen Bilirubin [Mass/Vol] 0.2 mg/dL Normal 0.2-1.0 [facility] Comment on above: Performed By: #### I SAMEER PSASC, VITB12 #### [facility] [address] [place] [address] Dr. Edilson Mortensen Calcium [Mass/Vol] 9.1 mg/dL Normal 8.5-10.1 [facility] Comment on above: Performed By: #### I SAMEER PSASC, VITB12 #### [facility] [address] [place] [address] Dr. Edilson Mortensen Chloride [Moles/Vol] 101 mmol/L Normal 98-107 [facility] Comment on above: Performed By: #### I SAMEER PSASC, VITB12 #### [facility] [address] [place] [address] Dr. Edilson Mortensen CO2 [Moles/Vol] 29.7 mmol/L Normal 21.0-32.0 [facility] Comment on above: Performed By: #### I SAMEER, PSASC, VITB12 #### [facility] [address] [address] [address] Edilson Mortensen Creatinine [Mass/Vol] 1.11 mg/dL Normal 0.70-1.30 [facility] Comment on above: Performed By: #### I SAMEER, PSASC, VITB12 #### [facility] [address] [address] [address] Edilson Mortensen EGFR-AF TRINIDADIAN >60 Normal >=60 [facility] Comment on above: Performed By: #### I SAMEER, PSASC, VITB12 #### [facility] [address] [address] [address] Edilson Mortensen EGFR-NON AF TRINIDADIAN >60 Normal >=60 [facility] Comment on above: Performed By: #### I SAMEER, PSASC, VITB12 #### [facility] [address] [place] [address] Dr. Edilson Mortensen Globulin (S) [Mass/Vol] 3.4 g/dL Normal [facility] Comment on above: Performed By: #### I SAMEER, PSASC, VITB12 #### [facility] [address] [address] [address] Edilson Mortensen Glucose [Mass/Vol] 111 mg/dL Critically high 74-106 [facility] Comment on above: Performed By: #### I SAMEER, PSASC, VITB12 #### [facility] [address] [place] [address] Dr. Edilson Mortensen Potassium [Moles/Vol] 4.3 mmol/L Normal 3.5-5.1 [facility] Comment on above: Performed By: #### I SAMEER, PSASC, VITB12 #### [facility] [address] [place] [address] Dr. Edilson Mortensen Protein [Mass/Vol] 7.0 g/dL Normal 6.4-8.2 [facility] Comment on above: Performed By: #### I SAMEER, PSASC, VITB12 #### [facility] [address] [place] [address] Dr. Edilson Mortensen Sodium [Moles/Vol] 137 mmol/L Normal 136-145 [facility] Comment on above: Performed By: #### I SAMEER PSASC, VITB12 #### [facility] [address] [place] [address] Dr. Edilson Mortensen Urea nitrogen [Mass/Vol] 12.0 mg/dL Normal 7.0-18.0 [facility] Comment on above: Performed By: #### I SAMEER PSASC, VITB12 #### [facility] [address] [place] [address] Dr. Edilson Mortensen Urea nitrogen/Creatinine [Mass ratio] 10.8 mg/mg Normal [facility] Comment on above: Performed By: #### I MARGE ESTRELLASC, VITB12 #### [facility] [address] [place] [address] Dr. Edilson Mortensen TSHon 06-09-2022 TSH 1.807 uIU/mL Normal 0.358-3.74 0 [facility] Comment on above: Performed By: #### I MARGE ESTRELLASC, VITB12 #### [facility] [address] [place] [address] Dr. Edilson Mortensen URIC ACID SERUMon 06-09-2022 Urate [Mass/Vol] 4.1 mg/dL Normal 3.5-7.2 [facility] Comment on above: Performed By: #### I MARGE ESTRELLASC, VITB12 #### [facility] [address] [place] [address] Dr. Edilson Mortensen VITAMIN B12on 06-09-2022 Cobalamin (Vitamin B12) [Mass/Vol] 282.0 pg/mL Normal 193.0-986. 0 [facility] Comment on above: Performed By: #### I SAMEER PSASC, VITB12 #### [facility] [address] [place] [address] Dr. Edilson Mortensen CBC AUTO DIFFon 04-15-2022 BASO # 0.1 103/ul Normal 0.0-0.1 [facility] Comment on above: Performed By: #### I SAMEER PSASC, VITB12 #### [facility] [address] [place] [address] Dr. Edilson Mortensen Basophils/100 WBC (Bld) 0.5 % Normal 0.2-2.0 [facility] Comment on above: Performed By: #### I MARGE ESTRELLASC, VITB12 #### [facility] [address] [place] [address] Dr. Edilson Mortensen EO # 0.2 103/ul Normal 0.0-0.7 [facility] Comment on above: Performed By: #### I SAMEER PSASC, VITB12 #### [facility] [address] [place] [address] Dr. Edilson Mortensen Eosinophils/100 WBC (Bld) 1.6 % Normal 0.9-7.0 [facility] Comment on above: Performed By: #### I MARGE ESTRELLASC, VITB12 #### [facility] [address] [place] [address] Dr. Edilson Mortensen Erythrocyte distribution width (RBC) [Ratio] 12.8 % Normal 11.0-15.0 [facility] Comment on above: Performed By: #### I SAMEER PSASC, VITB12 #### [facility] [address] [place] [address] Dr. Edilson Mortensen Hematocrit (Bld) [Volume fraction] 41.4 % Critically low 42.0-54.0 [facility] Comment on above: Performed By: #### I SAMEER PSASC, VITB12 #### [facility] [address] [place] [address] Dr. Edilson Mortensen Hemoglobin (Bld) [Mass/Vol] 14.5 g/dL Normal 14.0-18.0 [facility] Comment on above: Performed By: #### I SAMEER PSASC, VITB12 #### [facility] [address] [place] [address] Dr. Edilson Mortensen IG # 0.12 10e3/ul Critically high 0.00-0.03 [facility] Comment on above: Performed By: #### I SAMEER PSASC, VITB12 #### [facility] [address] [place] [address] Dr. Edilson Mortensen IG % 1.2 % Critically high 0.0-0.5 [facility] Comment on above: Performed By: #### I SAMEER PSASC, VITB12 #### [facility] [address] [place] [address] Dr. Edilson Mortensen LYMPH # 1.9 103/ul Normal 1.2-3.8 [facility] Comment on above: Performed By: #### I SAMEER PSASC, VITB12 #### [facility] [address] [place] [address] Dr. Edilson Mortensen Lymphocytes/100 WBC (Bld) 18.8 % Critically low 20.5-60.0 [facility] Comment on above: Performed By: #### I SAMEER PSASC, VITB12 #### [facility] [address] [place] [address] Dr. Edilson Mortensen MANUAL DIFF REQ NO Normal [facility] Comment on above: Performed By: #### I SAMEER PSASC, VITB12 #### [facility] [address] [place] [address] Dr. Edilson Mortensen MCH (RBC) [Entitic mass] 34.1 pg Critically high 25.9-34.0 [facility] Comment on above: Performed By: #### I SAMEER PSASC, VITB12 #### [facility] [address] [place] [address] Dr. Edilson Mortensen MCHC (RBC) [Mass/Vol] 35.0 g/dL Normal 29.9-35.2 [facility] Comment on above: Performed By: #### I SAMEER PSASC, VITB12 #### [facility] [address] [place] [address] Dr. Edilson Mortensen MCV (RBC) [Entitic vol] 97.4 fL Critically high 80.0-94.0 [facility] Comment on above: Performed By: #### I SAMEER, PSASC, VITB12 #### [facility] [address] [place] [address] Dr. Edilson Mortensen MONO # 1.2 103/ul Critically high 0.3-0.8 [facility] Comment on above: Performed By: #### I SAMEER PSASC, VITB12 #### [facility] [address] [place] [address] Dr. Edilson Mortensen Monocytes/100 WBC (Bld) 12.1 % Critically high 1.7-12.0 [facility] Comment on above: Performed By: #### I SAMEER PSASC, VITB12 #### [facility] [address] [place] [address] Dr. Edilson Mortensen NEUT # 6.7 103/ul Critically high 1.4-6.5 [facility] Comment on above: Performed By: #### I SAMEER PSASC, VITB12 #### [facility] [address] [place] [address] Dr. Edilson Mortensen Neutrophils/100 WBC (Bld) 65.8 % Normal 43.0-75.0 [facility] Comment on above: Performed By: #### I SAMEER PSASC, VITB12 #### [facility] [address] [place] [address] Dr. Edilson Mortensen Platelet mean volume (Bld) [Entitic vol] 8.4 fL Critically low 9.5-13.5 [facility] Comment on above: Performed By: #### I MARGE ESTRELLASC, VITB12 #### [facility] [address] [place] [address] Dr. Edilson Mortensen PLT 312 103/ul Normal 150-450 The [facility] Comment on above: Performed By: #### I SAMEER PSASC, VITB12 #### [facility] [address] [place] [address] Dr. Edilson Mortensen RBC 4.25 106/ul Critically low 4.70-6.10 The [facility] Comment on above: Performed By: #### I SAMEER PSASC, VITB12 #### [facility] [address] [place] [address] Dr. Edilson Mortensen WBC 10.2 103/ul Normal 4.0-11.0 [facility] Comment on above: Performed By: #### I SAMEER PSASC, VITB12 #### [facility] [address] [address] [address] Edilson Mortensen PROF 14(COMP METB)on 022 Albumin [Mass/Vol] 3.2 g/dL Critically low 3.4-5.0 [facility] Comment on above: Performed By: #### C MP #### [facility] [address] [place] [address] Dr. Edilson Mortensen Albumin/Globulin [Mass ratio] 1.1 {ratio} Normal [facility] Comment on above: Performed By: #### C MP #### [facility] [address] [place] [address] Dr. Edilson Mortensen ALP [Catalytic activity/Vol] 153 U/L Critically high 46-116 [facility] Comment on above: Performed By: #### C MP #### [facility] [address] [place] [address] Dr. Edilson Mortensen ALT [Catalytic activity/Vol] 15 U/L Critically low 16-63 [facility] Comment on above: Performed By: #### C MP #### [facility] [address] [place] [address] Dr. Edilson Mortensen Anion gap [Moles/Vol] 11.2 mmol/L Normal [facility] Comment on above: Performed By: #### C MP #### [facility] [address] [place] [address] Dr. Edilson Mortensen AST [Catalytic activity/Vol] 10 U/L Critically low 15-37 [facility] Comment on above: Performed By: #### C MP #### [facility] [address] [place] [address] Dr. Edilson Mortensen Bilirubin [Mass/Vol] 0.4 mg/dL Normal 0.2-1.0 [facility] Comment on above: Performed By: #### C MP #### [facility] [address] [place] [address] Dr. Edilson Mortensen Calcium [Mass/Vol] 9.1 mg/dL Normal 8.5-10.1 [facility] Comment on above: Performed By: #### C MP #### [facility] [address] [place], [place] [id number] Dr. Edilson Mortensen Chloride [Moles/Vol] 105 mmol/L Normal 98-107 [facility] Comment on above: Performed By: #### C MP #### [facility] [address] [place] [address] Dr. Edilson Mortensen CO2 [Moles/Vol] 25.9 mmol/L Normal 21.0-32.0 [facility] Comment on above: Performed By: #### C MP #### [facility] [address] [place] [address] Dr. Edilson Mortensen Creatinine [Mass/Vol] 0.82 mg/dL Normal 0.70-1.30 [facility] Comment on above: Performed By: #### C MP #### [facility] [address] [place] [address] Dr. Edilson Mortensen EGFR-AF TRINIDADIAN >60 Normal >=60 [facility] Comment on above: Performed By: #### C MP #### [facility] [address] [place] [address] Dr. Edilson Mortensen EGFR-NON AF TRINIDADIAN >60 Normal >=60 [facility] Comment on above: Performed By: #### C MP #### [facility] [address] [place] [address] Dr. Edilson Mortensen Globulin (S) [Mass/Vol] 3.0 g/dL Normal [facility] Comment on above: Performed By: #### C MP #### [facility] [address] [place] [address] Dr. Edilson Mortensen Glucose [Mass/Vol] 112 mg/dL Critically high 74-106 [facility] Comment on above: Performed By: #### C MP #### [facility] [address] [place] [address] Dr. Edilson Mortensen Potassium [Moles/Vol] 4.1 mmol/L Normal 3.5-5.1 [facility] Comment on above: Performed By: #### C MP #### [facility] [address] [place] [address] Dr. Edilson Mortensen Protein [Mass/Vol] 6.2 g/dL Critically low 6.4-8.2 Th e [facility] Comment on above: Performed By: #### C MP #### [facility] [address] [place] [address] Dr. Edilson Mortensen Sodium [Moles/Vol] 138 mmol/L Normal 136-145 [facility] Comment on above: Performed By: #### C MP #### [facility] [address] [place] [address] Dr. Edilson Mortensen Urea nitrogen [Mass/Vol] 7.0 mg/dL Normal 7.0-18.0 [facility] Comment on above: Performed By: #### C MP #### [facility] [address] [place] [address] Dr. Edilson Mortensen Urea nitrogen/Creatinine [Mass ratio] 8.5 mg/mg Normal [facility] Comment on above: Performed By: #### C MP #### [facility] [address] [place] [address] Dr. Edilson Mortensen BNPon 04-14-2022 Natriuretic peptide B (Bld) [Mass/Vol] 120.0 pg/mL Normal <=900.0 [facility] Comment on above: Performed By: #### I MARGE ESTRELLASC, VITB12 #### [facility] [address] [place] [address] Dr. Edilson Mortensen CBC AUTO DIFFon 04-14-2022 BASO # 0.1 103/ul Normal 0.0-0.1 [facility] Comment on above: Performed By: #### I SAMEER PSASC, VITB12 #### [facility] [address] [place] [address] Dr. Edilson Mortensen Basophils/100 WBC (Bld) 0.4 % Normal 0.2-2.0 [facility] Comment on above: Performed By: #### I SAMEER PSASC, VITB12 #### [facility] [address] [place] [address] Dr. Edilson Mortensen EO # 0.2 103/ul Normal 0.0-0.7 [facility] Comment on above: Performed By: #### I SAMEER PSASC, VITB12 #### [facility] [address] [place] [address] Dr. Edilson Mortensen Eosinophils/100 WBC (Bld) 1.3 % Normal 0.9-7.0 [facility] Comment on above: Performed By: #### I MARGE ESTRELLASC, VITB12 #### [facility] [address] [place] [address] Dr. Edilson Mortensen Erythrocyte distribution width (RBC) [Ratio] 13.1 % Normal 11.0-15.0 [facility] Comment on above: Performed By: #### I MARGE ESTRELLASC, VITB12 #### [facility] [address] [place] [address] Dr. Edilson Mortensen Hematocrit (Bld) [Volume fraction] 43.2 % Normal 42.0-54.0 [facility] Comment on above: Performed By: #### I MARGE ESTRELLASC, VITB12 #### [facility] [address] [place] [address] Dr. Edilson Mortensen Hemoglobin (Bld) [Mass/Vol] 14.3 g/dL Normal 14.0-18.0 [facility] Comment on above: Performed By: #### I MARGE ESTRELLASC, VITB12 #### [facility] [address] [place] [address] Dr. Edilson Mortensen IG # 0.11 10e3/ul Critically high 0.00-0.03 The [facility] Comment on above: Performed By: #### I MARGE ESTRELLASC, VITB12 #### [facility] [address] [place] [address] Dr. Edilson Mortensen IG % 0.9 % Critically high 0.0-0.5 The [facility] Comment on above: Performed By: #### I MARGE ESTRELLASC, VITB12 #### [facility] [address] [place] [address] Dr. Edilson Mortensen LYMPH # 2.0 103/ul Normal 1.2-3.8 [facility] Comment on above: Performed By: #### I SAMEER PSASC, VITB12 #### [facility] [address] [address] [address] Edilson Mortensen Lymphocytes/100 WBC (Bld) 15.8 % Critically low 20.5-60.0 [facility] Comment on above: Performed By: #### I SAMEER, PSASC, VITB12 #### [facility] [address] [place] [address] Dr. Edilson Mortensen MANUAL DIFF REQ NO Normal [facility] Comment on above: Performed By: #### I SAMEER, PSASC, VITB12 #### [facility] [address] [place] [address] Dr. Edilson Mortensen MCH (RBC) [Entitic mass] 33.6 pg Normal 25.9-34.0 [facility] Comment on above: Performed By: #### I SAMEER, PSASC, VITB12 #### [facility] [address] [place] [address] Dr. Edilson Mortensen MCHC (RBC) [Mass/Vol] 33.1 g/dL Normal 29.9-35.2 [facility] Comment on above: Performed By: #### I SAMEER, PSASC, VITB12 #### [facility] [address] [place] [address] Dr. Edilson Mortensen MCV (RBC) [Entitic vol] 101.6 fL Critically high 80.0-94.0 [facility] Comment on above: Performed By: #### I SAMEER, PSASC, VITB12 #### [facility] [address] [place] [address] Dr. Edilson Mortensen MONO # 1.5 103/ul Critically high 0.3-0.8 The [facility] Comment on above: Performed By: #### I SAMEER, PSASC, VITB12 #### [facility] [address] [place] [address] Dr. Edilson Mortensen Monocytes/100 WBC (Bld) 11.5 % Normal 1.7-12.0 [facility] Comment on above: Performed By: #### I SAMEER, PSASC, VITB12 #### [facility] [address] [place] [address] Dr. Edilson Mortensen NEUT # 8.9 103/ul Critically high 1.4-6.5 The [facility] Comment on above: Performed By: #### I IRENA ESTRELLA, VITB12 #### [facility] [address] [address] [address] Edilson Mortensen Neutrophils/100 WBC (Bld) 70.1 % Normal 43.0-75.0 [facility] Comment on above: Performed By: #### I IRENA ESTRELLA, VITB12 #### [facility] [address] [address] [address] Edilson Mortensen Platelet mean volume (Bld) [Entitic vol] 8.3 fL Critically low 9.5-13.5 [facility] Comment on above: Performed By: #### I IRENA ESTRELLA, VITB12 #### [facility] [address] [address] [address] Edilson Mortensen PLT 328 103/ul Normal 150-450 [facility] Comment on above: Performed By: #### I IRENA ESTRELLA, VITB12 #### [facility] [address] [address] [address] Edilson Mortensen RBC 4.25 106/ul Critically low 4.70-6.10 [facility] Comment on above: Performed By: #### I IRENA ESTRELLA, VITB12 #### [facility] [address] [address] [address] Edilson Mortensen WBC 12.6 103/ul Critically high 4.0-11.0 The [facility] Comment on above: Performed By: #### I MARGE ESTRELLASC, VITB12 #### [facility] [address] [place] [address] Dr. Edilson Mortensen CTA CHEST WO W CONon 17-2 022 CTA CHEST WO W CON CTA CHEST WITH IV CONTRAST CTA CHEST WO W CON, DATE: 04/14/2022 7:25 PM EDT HISTORY: CHEST PAIN, UNSPECIFIED in a 62-year-old male COMPARISON: 07/22/2018 CT chest TECHNIQUE: Multiple axial images are taken from the level of the thyroid down through the upper abdomen with and without the use of IV contrast. Images are then reconstructed in the sagittal and coronal planes. This exam was performed according to our departmental dose-optimization program which includes use of Automated Exposure Control, adjustment of the mA and/or kV according to patient size and/or use of iterative reconstruction technique. Postprocessing was performed for CTA with the following as per hospital protocol: Maximum intensity projection (MIPs) Contrast Used: 75 mL of Omnipaque 350 FINDINGS: Lungs: Groundglass opacities are demonstrated in the lungs. Pleura: Normal Thyroid: Subcentimeter nodule in the left lower lobe. Mediastinum: Aorta: Ascending aorta measures 40 x 39 mm. Pulmonary artery: Pulmonary artery measures within normal limits. However, there is a filling defect seen within the left upper pulmonary artery seen best on coronal image 34. Heart: Normal. Trachea/Bronchi: Well aerated. No intraluminal masses. Esophagus: Decompressed which limits evaluation. Normal for the lack of distention. Lymph Nodes: Normal. Chest wall: Normal. Axilla: Normal. Osseous Structures: Postoperative changes of the cervical spine. Subdiaphragm: The subdiaphragmatic abdominal organs included in the [id number] do not demonstrate any acute abnormality. IMPRESSION: 1. Positive for small left-sided acute pulmonary emboli. No heart strain. 2. Groundglass opacities in the lung bases. Please correlate for pneumonia versus atelectasis. 3. Ascending aorta is aneurysmal measuring 4 cm. CRITICAL findings: Spoke with Dr. Johny Collazo at 9:23 [facility] EST Electronically authenticated by: MOIZ BROWNING Date: 2022-04-14 21:31 Normal [facility] Covid-19 PCR (CVDTB)on 03-29 SARS-CoV-2 (COVID-19) RNA KEATON+probe Ql (Unsp spec) Not detected Normal NOT DETECTED [facility] Comment on above: Result Comment: When diagnostic testing is negative, the possibility of a false negative should be considered in the context of a patient's recent exposures and the presence of clinical signs and symptoms consistent with SARS-CoV-2. This test is not yet approved or cleared by the [place] FDA. When there are no FDA-approved or cleared tests available, and other criteria are met, FDA can make tests available under an emergency access mechanism called an Emergency Use Authorization (EUA). The EUA for this test is supported by the Ace of Health and Human Service's declaration that circumstances exist to justify the emergency use of in vitro diagnostics for the detection and/or diagnosis of the virus that causes COVID-19. This EUA will remain in effect for the duration of the COVID-19 declaration justifying emergency of IVDs, unless it is terminated or revoked by the FDA (after which the test may no longer be used). Performed By: #### C VDTBH #### [facility] [address] [place] [address] Dr. Edilson Mortensen D-DIMERon 04-14-2022 D-DIMER 1.18 mg/L FEU Critically high <=0.59 The [facility] Comment on above: Performed By: #### T HYLC #### [facility] [address] [place] [address] Dr. Edilson Mortensen D-DIMER COMMENTS SEE BELOW Normal [facility] Comment on above: Result Comment: Incr eases in D-Dimer concentration observed with thromboembolic events can be variable due to localization, size, and age of the thrombus. Therefore, a thromboembolic event cannot be diagnosed with certainty on the basis of the reference range. D-Dimers may also be elevated for a variety of disorders including: advanced age, , coronary disease, cancer, liver disease, infection, inflammation, hematoma, DIC, trauma, post-surgery, diabetes, thrombolytic or anticoagulant therapy, stress, and generalized hospitalization. Performed By: #### T HYLC #### [facility] [address] [place] [address] Dr. Edilson Mortensen PROF 14(COMP METB)on 022 Albumin [Mass/Vol] 3.2 g/dL Critically low 3.4-5.0 Th e [facility] Comment on above: Performed By: #### I SAMEER PSATASHI, VITB12 #### [facility] [address] [place] [address] Dr. Edilson Mortensen Albumin/Globulin [Mass ratio] 0.8 {ratio} Normal [facility] Comment on above: Performed By: #### I SAMEER PSASC, VITB12 #### [facility] [address] [place] [address] Dr. Edilson Mortensen ALP [Catalytic activity/Vol] 141 U/L Critically high 46-116 [facility] Comment on above: Performed By: #### I MARGE ESTRELLASC, VITB12 #### [facility] [address] [place] [address] Dr. Edilson Mortensen ALT [Catalytic activity/Vol] 13 U/L Critically low 16-63 [facility] Comment on above: Performed By: #### I SAMEER PSASC, VITB12 #### [facility] [address] [place] [address] Dr. Edilson Mortensen Anion gap [Moles/Vol] 13.7 mmol/L Normal [facility] Comment on above: Performed By: #### I MARGE ESTRELLASC, VITB12 #### [facility] [address] [place] [address] Dr. Edilson Mortensen AST [Catalytic activity/Vol] 10 U/L Critically low 15-37 [facility] Comment on above: Performed By: #### I SAMEER PSASC, VITB12 #### [facility] [address] [place] [address] Dr. Edilson Mortensen Bilirubin [Mass/Vol] 0.2 mg/dL Normal 0.2-1.0 [facility] Comment on above: Performed By: #### I MARGE ESTRELLASC, VITB12 #### [facility] [address] [place] [address] Dr. Edilson Mortensen Calcium [Mass/Vol] 9.0 mg/dL Normal 8.5-10.1 [facility] Comment on above: Performed By: #### I SAMEER PSASC, VITB12 #### [facility] [address] [place] [address] Dr. Edilson Mortensen Chloride [Moles/Vol] 104 mmol/L Normal 98-107 [facility] Comment on above: Performed By: #### I SAMEER PSASC, VITB12 #### [facility] [address] [place] [address] Dr. Edilson Mortensen CO2 [Moles/Vol] 27.0 mmol/L Normal 21.0-32.0 [facility] Comment on above: Performed By: #### I MARGE ESTRELLASC, VITB12 #### [facility] [address] [address] [address] Edilson Mortensen Creatinine [Mass/Vol] 0.88 mg/dL Normal 0.70-1.30 [facility] Comment on above: Performed By: #### I SAMEER, PSASC, VITB12 #### [facility] [address] [place] [address] Dr. Edilson Mortensen EGFR-AF TRINIDADIAN >60 Normal >=60 [facility] Comment on above: Performed By: #### I SAMEER, PSASC, VITB12 #### [facility] [address] [place] [address] Dr. Edilson Mortensen EGFR-NON AF TRINIDADIAN >60 Normal >=60 [facility] Comment on above: Performed By: #### I SAMEER, PSASC, VITB12 #### [facility] [address] [place] [address] Dr. Edilson Mortensen Globulin (S) [Mass/Vol] 3.9 g/dL Normal [facility] Comment on above: Performed By: #### I SAMEER, PSASC, VITB12 #### [facility] [address] [place] [address] Dr. Edilson Mortensen Glucose [Mass/Vol] 92 mg/dL Normal 74-106 [facility] Comment on above: Performed By: #### I SAMEER, PSASC, VITB12 #### [facility] [address] [place] [address] Dr. Edilson Mortensen Potassium [Moles/Vol] 4.0 mmol/L Normal 3.5-5.1 [facility] Comment on above: Performed By: #### I SAMEER, PSASC, VITB12 #### [facility] [address] [place] [address] Dr. Edilson Mortensen Protein [Mass/Vol] 7.1 g/dL Normal 6.4-8.2 The [facility] Comment on above: Performed By: #### I SAMEER, PSASC, VITB12 #### [facility] [address] [place] [address] Dr. Edilson Mortensen Sodium [Moles/Vol] 141 mmol/L Normal 136-145 [facility] Comment on above: Performed By: #### I IRENA ESTRELLA VITB12 #### [facility] [address] [place] [address] Dr. Edilson Mortensen Urea nitrogen [Mass/Vol] 9.0 mg/dL Normal 7.0-18.0 [facility] Comment on above: Performed By: #### I IRENA ESTRELLA VITB12 #### [facility] [address] [place] [address] Dr. Edilson Mortensen Urea nitrogen/Creatinine [Mass ratio] 10.2 mg/mg Normal [facility] Comment on above: Performed By: #### I IRENA ESTRELLA VITB12 #### [facility] [address] [place] [address] Dr. Edilson Mortensen PROTIMEon 04-14-2022 INR Coag (PPP) [Relative time] {INR} Normal [facility] Comment on above: Performed By: #### T HYLC #### [facility] [address] [place] [address] Dr. Edilson Mortensen INR GUIDELINES SEE BELOW Normal [facility] Comment on above: Result Comment: GERARDO RED INR: 2.0 - 3.0 CONDITIONS NOT LISTED BELOW 2.5 - 3.5 FOR PROSTHETIC HEART VALVE REPLACEMENT 2.5 - 3.5 RECURRENT THROMBOSIS Performed By: #### T HYLC #### [facility] [address] [place] [address] Dr. Edilson Mortensen PT Coag (PPP) [Time] 9.7 s Normal 9.0-11.6 [facility] Comment on above: Performed By: #### T HYLC #### [facility] [address] [place] [address] Dr. Edilson Mortensen PTTon 04-14-2022 aPTT Coag (Bld) [Time] 28.5 s Normal 22.3-36.2 [facility] Comment on above: Performed By: #### T HYLC #### [facility] [address] [place] [address] Dr. Edilson Mortensen TROPONIN, HIGH SENSITIVITYon 04-14-2022 HSTROP 6.7 pg/mL Normal 4.0-76.1 [facility] Comment on above: Result Comment: CUT- OFF POINTS HAVE BEEN ESTABLISHED BASED ON THE FOURTH UNIVERSAL DEFINITIONS OF MYOCARDIAL INFARCTION. THE UPPER REFERENCE LIMIT (URL) OF TROPONIN, DEFINED THE 99TH PERCENTILE OF cTnI DISTRIBUTION IN A REFERENCE POPULATION, HAS BEEN CONFIRMED THE DECISION THRESHOLD FOR MO DIAGNOSIS. Performed By: #### I SAMEER, PSASC, VITB12 #### [facility] [address] [address] [address] Edilson Mortensen XR CHEST 1 Von 04-14-2022 XR CHEST 1 V EXAMINATION: XR CHES T 1 V HISTORY: Shortness of breath COMPARISON: None. TECHNIQUE: Portable chest FINDINGS: The lung parenchyma is free of consolidation or infiltrate. No pneumothorax or pleural effusion. The cardiac, mediastinal and hilar contours are normal. Status post open reduction internal fixation of the right clavicle and ACDF. The visualized osseous structures exhibit no gross abnormality. IMPRESSION: No acute cardiopulmonary abnormality. Electronically authenticated by: SAMANTA JENNINGS Date: 2022-04-14 18:40 Normal [facility] XR CSPINE 2_3 VIEWSon 2021 XR CSPINE 2_3 VIEWS EXAMINATION: XR CSPI NE 2_3 VIEWS HISTORY: Myelopathy due to cervical spondylosis COMPARISON: 01/11/2022 FINDINGS: BONES: Interval posterior decompression and transpedicular fusion at C2-C5. Stable anterior fusion C4-C7. No acute fracture, dislocation or mechanical failure. Moderate to severe diffuse degenerative changes with reversal of normal cervical lordosis. DISC SPACES: Altered level disc space narrowing with endplate sclerosis PARASPINOUS: Negative. No paraspinous abnormality is seen. OTHER: Negative. IMPRESSION: Interval posterior C3-C5 fusion with stable anterior fusion. No mechanical failure Electronically authenticated by: SAMANTA PLASCENCIA Date: 2022-03-16 07:11 Normal [facility] Activated partial thrombopla stin time (aPTT) in platelet poor plasma by coagulation aOrdered By: Antwon Hastings on 02-28-2022 aPTT Coag (PPP) [Time] 24.3 s 25.1-36.[address] [facility] [facility] Album[facility] [Mass/volume] in Ser um or PlasmaOrdered By: Laura Yu on 02-28-2022 Albumin [Mass/Vol] 3.5 g/dL 3.2-5.5 [facility] Basophils Auto (Bld) [#/Vol] Ordered By: Antwon Hastings on 02-28-2022 Basophils (Bld) [#/Vol] 0.0 10*3/uL 0.0-0.2 [facility] Basophils Auto (Bld) [#/Vol] Ordered By: Laura Yu on 02-28-2022 Basophils (Bld) [#/Vol] 0.1 10*3/uL 0.0-0.2 [facility] Basophils/100 WBC Auto (Bld) Ordered By: Antwon Hastings on 02-28-2022 Basophils/100 WBC (Bld) 0.3 % [facility] Basophils/100 WBC Auto (Bld) Ordered By: Laura Yu on 02-28-2022 Basophils/100 WBC (Bld) 0.6 % [facility] Blood hemoglobin measurement (mass/volume)Ordered By: Antwon Hastings on 02-28-2022 Hemoglobin (Bld) [Mass/Vol] 15.3 g/dL 13.0-17.0 [facility] Blood hemoglobin measurement (mass/volume)Ordered By: Laura Yu on 02-28-2022 Hemoglobin (Bld) [Mass/Vol] 15.1 g/dL 13.0-17.0 [facility] Blood leukocytes automated c ount (number/volume)Ordered By: Antwon Hastings on 02-28-2022 WBC (Bld) [#/Vol] 13.1 10*3/uL 4.5-11.0 [facility] Blood leukocytes automated c ount (number/volume)Ordered By: Laura Yu on 02-28-2022 WBC (Bld) [#/Vol] 13.1 10*3/uL 4.5-11.0 [facility] COVID-19 Positive/NegativeOr dered By: Laura Yu on 02-28-2022 SARS-CoV-2 (COVID-19) N gene KEATON+probe Ql (Resp) Negative Negative [facility] Comment on above: Testing for SARS-CoV -2 by RT-PCR This test was developed and its performance characteristics determined by [employer] and validated at the [facility]. This test has not been FDA cleared or approved. This test has been authorized by FDA under an Emergency Use Authorization (EUA). This test has been validated in accordance with the FDA's Guidance Document (Policy for Diagnostics Testing in Laboratories Certified to Perform High Complexity Testing under CLIA prior to Emergency Use Authorization for Coronavirus Disease-2019 during the Public Health Emergency) issued on January 29, 2020. This test is only authorized for the duration of time the declaration that circumstances exist justifying the authorization of the emergency use of in vitro diagnostic tests for detection of SARS-CoV-2 virus and/or diagnosis of COVID-19 infection under section 564(b)(1) of the Act, 21 U.S.C. 360bbb-3(b)(1), unless the authorization is terminated or revoked sooner. COVID-19 SOFIAOrdered By: Nadeen Yu on 02-28-2022 SARS-CoV+SARS-CoV-2 (COVID-19) Ag IA.rapid Ql (Resp) Negative Negative [facility] Comment on above: This is a duplicate Iraida SARS Antigen (HAILEE) result to be used for statistical tracking purpose only. Creatinine and Glomerular fi ltration rate.predicted panel (S/P/Bld)Ordered By: Antwon Hastings on 02-28-2022 Creatinine [Mass/Vol] 1.00 mg/dL 0.64-1.27 [facility] Creatinine and Glomerular fi ltration rate.predicted panel (S/P/Bld)Ordered By: Laura Yu on 02-28-2022 Creatinine [Mass/Vol] 0.97 mg/dL 0.64-1.27 [facility] Eosinophils Auto (Bld) [#/Vo l]Ordered By: Antwon Hastings on 02-28-2022 Eosinophils (Bld) [#/Vol] 0.0 10*3/uL 0.0-0.45 [facility] Eosinophils Auto (Bld) [#/Vo l]Ordered By: Laura Yu on 02-28-2022 Eosinophils (Bld) [#/Vol] 0.0 10*3/uL 0.0-0.45 [facility] Eosinophils/100 WBC Auto (Bl d)Ordered By: Antwon Hastings on 02-28-2022 Eosinophils/100 WBC (Bld) 0.4 % [facility] Eosinophils/100 WBC Auto (Bl d)Ordered By: Laura Yu on 02-28-2022 Eosinophils/100 WBC (Bld) 0.1 % [facility] Erythrocyte distribution wid th Auto (RBC) [Ratio]Ordered By: Antwon Hastings on 02-28-2022 Erythrocyte distribution width (RBC) [Ratio] 13.3 % 12.0-14.8 [facility] Erythrocyte distribution wid th Auto (RBC) [Ratio]Ordered By: Laura Yu on 02-28-2022 Erythrocyte distribution width (RBC) [Ratio] 13.3 % 12.0-14.8 [facility] Estimated glomerular filtrat ion rate (GFR) non- AmericanOrdered By: Antwon Hastings on 02-28-2022 GFR/1.73 sq M.predicted among non-blacks MDRD (S/P/Bld) [Vol rate/Area] > 60 mL/Min [facility] Estimated glomerular filtrat ion rate (GFR) non- AmericanOrdered By: Laura Yu on 02-28-2022 GFR/1.73 sq M.predicted among non-blacks MDRD (S/P/Bld) [Vol rate/Area] > 60 mL/Min [facility] Globulin Calc (S) [Mass/Vol] Ordered By: Laura Yu on 02-28-2022 Globulin (S) [Mass/Vol] 2.7 g/dL [facility] Hematocrit Auto (Bld) [Volum e fraction]Ordered By: Antwon Hastings on 02-28-2022 Hematocrit (Bld) [Volume fraction] 43.3 % 38.8-50.0 [facility] Hematocrit Auto (Bld) [Volum e fraction]Ordered By: Laura Yu on 02-28-2022 Hematocrit (Bld) [Volume fraction] 44.1 % 38.8-50.0 [facility] Laboratory - Chemistry and C hemistry - challengeOrdered By: Antwon Hastings on 02-28-2022 Natriuretic peptide B (Bld) [Mass/Vol] 79.0 pg/mL 5-100 [facility] Laboratory - CoagulationOrde red By: Antwon Hastings on 02-28-2022 PT Coag (PPP) [Time] 10.0 s 9.0-12.9 [facility] Laboratory - CoagulationOrde red By: Laura Yu on 02-28-2022 PT Coag (PPP) [Time] 10.0 s 9.0-12.9 [facility] Laboratory - Hematology and Cell countsOrdered By: Antwon Hastings on 02-28-2022 Nucleated RBC/100 WBC (Bld) [Ratio] 0.0 % 0-0.5 [facility] Laboratory - Hematology and Cell countsOrdered By: Laura Yu on 02-28-2022 Nucleated RBC/100 WBC (Bld) [Ratio] 0.1 % 0-0.5 [facility] Lymphocytes Auto (Bld) [#/Vo l]Ordered By: Antwon Hastings on 02-28-2022 Lymphocytes (Bld) [#/Vol] 2.0 10*3/uL 1.00-4.8 [facility] Lymphocytes Auto (Bld) [#/Vo l]Ordered By: Laura Yu on 02-28-2022 Lymphocytes (Bld) [#/Vol] 1.2 10*3/uL 1.00-4.8 [facility] Lymphocytes/100 WBC Auto (Bl d)Ordered By: Antwon Hastings on 02-28-2022 Lymphocytes/100 WBC (Bld) 15.3 % [facility] Lymphocytes/100 WBC Auto (Bl d)Ordered By: Laura Yu on 02-28-2022 Lymphocytes/100 WBC (Bld) 9.5 % [facility] MCH Auto (RBC) [Entitic mass ]Ordered By: Antwon Hastings on 02-28-2022 MCH (RBC) [Entitic mass] 34.9 pg 27.5-35.2 [facility] MCH Auto (RBC) [Entitic mass ]Ordered By: Laura Yu on 02-28-2022 MCH (RBC) [Entitic mass] 33.9 pg 27.5-35.2 [facility] MCHC Auto (RBC) [Mass/Vol]Or dered By: Antwon Hastings on 02-28-2022 MCHC (RBC) [Mass/Vol] 35.2 g/dL 32.5-35.6 [facility] MCHC Auto (RBC) [Mass/Vol]Or dered By: Laura Yu on 02-28-2022 MCHC (RBC) [Mass/Vol] 34.3 g/dL 32.5-35.6 [facility] MCV Auto (RBC) [Entitic vol] Ordered By: Antwon Hastings on 02-28-2022 MCV (RBC) [Entitic vol] 99.0 fL 83.5-101 [facility] MCV Auto (RBC) [Entitic vol] Ordered By: Laura Yu on 02-28-2022 MCV (RBC) [Entitic vol] 98.6 fL 83.5-101 [facility] Monocytes Auto (Bld) [#/Vol] Ordered By: Antwon Hastings on 02-28-2022 Monocytes (Bld) [#/Vol] 0.8 10*3/uL 0.0-0.8 [facility] Monocytes Auto (Bld) [#/Vol] Ordered By: Laura Yu on 02-28-2022 Monocytes (Bld) [#/Vol] 1.0 10*3/uL 0.0-0.8 [facility] Monocytes/100 WBC Auto (Bld) Ordered By: Antwon Hastings on 02-28-2022 Monocytes/100 WBC (Bld) 6.2 % [facility] Monocytes/100 WBC Auto (Bld) Ordered By: Laura Yu on 02-28-2022 Monocytes/100 WBC (Bld) 7.6 % [facility] Neutrophils Auto (Bld) [#/Vo l]Ordered By: Antwon Hastings on 02-28-2022 Neutrophils (Bld) [#/Vol] 10.2 10*3/uL 1.8-7.7 [facility] Neutrophils Auto (Bld) [#/Vo l]Ordered By: Laura Yu on 02-28-2022 Neutrophils (Bld) [#/Vol] 10.8 10*3/uL 1.8-7.7 [facility] Neutrophils/100 WBC Auto (Bl d)Ordered By: Antwon Hastings on 02-28-2022 Neutrophils/100 WBC (Bld) 77.8 % [facility] Neutrophils/100 WBC Auto (Bl d)Ordered By: Laura Yu on 02-28-2022 Neutrophils/100 WBC (Bld) 82.2 % [facility] No Panel InformationOrdered By: Antwon Hastings on 02-28-2022 Estimated GFR () > 60 mL/Min [facility] Comment on above: GFR estimated refere nce range: According to KDOQI guidelines, <60 ml/min/1.73m2 is sufficient to diagnose a patient with chronic kidney disease. Pharmacy Creatinine Clearance (Chem 72.57 [facility] No Panel InformationOrdered By: Laura Yu on 02-28-2022 Estimated GFR () > 60 mL/Min [facility] Comment on above: GFR estimated refere nce range: According to KDOQI guidelines, <60 ml/min/1.73m2 is sufficient to diagnose a patient with chronic kidney disease. Pharmacy Creatinine Clearance (Chem 74.82 [facility] SARS Antigen (LFIA) [facility] Platelet mean volume Auto (B ld) [Entitic vol]Ordered By: Antwon Hastings on 02-28-2022 Platelet mean volume (Bld) [Entitic vol] 6.4 fL 6.6-10.1 [facility] Platelet mean volume Auto (B ld) [Entitic vol]Ordered By: Laura Yu on 02-28-2022 Platelet mean volume (Bld) [Entitic vol] 6.4 fL 6.6-10.1 [facility] Platelet poor plasma interna tional normalized ratio (INR) by coagulation assay (relatOrdered By: Antwon Hastings on 02-28-2022 INR Coag (PPP) [Relative time] 0.9 {INR} [facility] Comment on above: INR Therapeutic Rang e A) Pre- and Peroperative OAT started two weeks before surgery. NOT HIP SURGERY: 1.5 - 2.5 HIP SURGERY: 2 - 3 B) Primary and secondary prevention of venous THROMBOSIS: 2 - 3 C) Active venous thrombosis, pulmonary embolism and prevention of recurrent venous thrombosis: 2 - 3 D) Prevention of arterial thromboembolism including patients with mechanical heart valves: 3 - 4.5 Platelet poor plasma interna tional normalized ratio (INR) by coagulation assay (relatOrdered By: Laura Yu on 02-28-2022 INR Coag (PPP) [Relative time] 0.9 {INR} [facility] Comment on above: INR Therapeutic Rang e A) Pre- and Peroperative OAT started two weeks before surgery. NOT HIP SURGERY: 1.5 - 2.5 HIP SURGERY: 2 - 3B) Primary and secondary prevention of venous THROMBOSIS: 2 - 3C) Active venous thrombosis, pulmonary embolismand prevention of recurrent venous thrombosis: 2 - 3D) Prevention of arterial thromboembolismincluding patients with mechanical heart valves: 3 - 4.5 Platelets Auto (Bld) [#/Vol] Ordered By: Antwon Hastings on 02-28-2022 Platelets (Bld) [#/Vol] 316 10*3/uL 150-450 [facility] Platelets Auto (Bld) [#/Vol] Ordered By: Laura Yu on 02-28-2022 Platelets (Bld) [#/Vol] 316 10*3/uL 150-450 [facility] Protein [Mass/volume] in Ser um or PlasmaOrdered By: Laura Yu on 02-28-2022 Protein [Mass/Vol] 6.2 g/dL 6.1-7.9 [facility] RBC Auto (Bld) [#/Vol]Ordere d By: Antwon Hsatings on 02-28-2022 RBC (Bld) [#/Vol] 4.38 10*6/uL 3.90-5.60 [facility] RBC Auto (Bld) [#/Vol]Ordere d By: Laura Yu on 02-28-2022 RBC (Bld) [#/Vol] 4.47 10*6/uL 3.90-5.60 [facility] Serum or plasma alanine bowden otransferase measurement without P-5'-P (enzymatic activiOrdered By: Laura Yu on 02-28-2022 ALT No additional P-5'-P [Catalytic activity/Vol] 25 U/L [facility] Serum or plasma albumin/glob ulin mass ratioOrdered By: Laura Yu on 02-28-2022 Albumin/Globulin [Mass ratio] 1.3 {ratio} [facility] Serum or plasma alkaline mariella sphatase measurement (enzymatic activity/volume)Ordered By: Laura Yu on 02-28-2022 ALP [Catalytic activity/Vol] 67 U/L 32-92 [facility] Serum or plasma aspartate am inotransferase measurement (enzymatic activity/volume)Ordered By: Laura Yu on 02-28-2022 AST [Catalytic activity/Vol] 14 U/L 10-42 [facility] Serum or plasma calcium carlos urement (mass/volume)Ordered By: Antwon Hastings on 02-28-2022 Calcium [Mass/Vol] 9.0 mg/dL 8.2-10.2 [facility] Serum or plasma calcium carlos urement (mass/volume)Ordered By: Laura Yu on 02-28-2022 Calcium [Mass/Vol] 9.0 mg/dL 8.2-10.2 [facility] Serum or plasma chloride french surement (moles/volume)Ordered By: Antwon Hastings on 02-28-2022 Chloride [Moles/Vol] 97 mmol/L 95-114 [facility] Serum or plasma chloride french surement (moles/volume)Ordered By: Laura Yu on 02-28-2022 Chloride [Moles/Vol] 100 mmol/L 95-114 [facility] Serum or plasma glucose carlos urement (mass/volume)Ordered By: Antwon Hastings on 02-28-2022 Glucose [Mass/Vol] 130 mg/dL 70-100 [facility] Comment on above: ADA recommended refe rence range Random Glucose Reference Range is dependent on time and content of last meal. Glucose of more than 200 mg/dL in a nonstressed, ambulatory subject supports the diagnosis of Diabetes Mellitus. Serum or plasma glucose carlos urement (mass/volume)Ordered By: Laura Yu on 02-28-2022 Glucose [Mass/Vol] 123 mg/dL 70-100 [facility] Comment on above: ADA recommended refe rence rangeRandom Glucose Reference Range is dependent on time and content of last meal. Glucose of more than 200 mg/dL in a nonstressed, ambulatory subject supports the diagnosis of Diabetes Mellitus. Serum or plasma potassium me asurement (moles/volume)Ordered By: Antwon Hastings on 02-28-2022 Potassium [Moles/Vol] 3.9 mmol/L 3.5-5.1 [facility] Serum or plasma potassium me asurement (moles/volume)Ordered By: Laura Yu on 02-28-2022 Potassium [Moles/Vol] 4.1 mmol/L 3.5-5.1 [facility] Serum or plasma sodium measu rement (moles/volume)Ordered By: Antwon Hastings on 02-28-2022 Sodium [Moles/Vol] 133 mmol/L 136-146 [facility] Serum or plasma sodium measu rement (moles/volume)Ordered By: Laura Yu on 02-28-2022 Sodium [Moles/Vol] 133 mmol/L 136-146 [facility] Serum or plasma total biliru bin measurement (mass/volume)Ordered By: Laura Yu on 02-28-2022 Bilirubin [Mass/Vol] 0.4 mg/dL 0.3-1.2 [facility] Serum or plasma total carbon dioxide measurement (moles/volume)Ordered By: Antwon Hastings on 02-28-2022 CO2 [Moles/Vol] 24.7 mmol/L 22.0-30.0 [facility] Serum or plasma total carbon dioxide measurement (moles/volume)Ordered By: Laura Yu on 02-28-2022 CO2 [Moles/Vol] 23.7 mmol/L 22.0-30.0 [facility] Serum or plasma urea nitroge n measurement (mass/volume)Ordered By: Antwon Hastings on 02-28-2022 Urea nitrogen [Mass/Vol] 13 mg/dL 07-21 [facility] Serum or plasma urea nitroge n measurement (mass/volume)Ordered By: Laura Yu on 02-28-2022 Urea nitrogen [Mass/Vol] 13 mg/dL 07-21 [facility] Amphetamine Screen Ql (U)Ord ered By: Mitchel De Los Santos on 02-08-2022 Amphetamines Ql (U) Negative Negative [facility] Barbiturates [Presence] in U rineOrdered By: Mitchel De Los Santos on 02-08-2022 Barbiturates Ql (U) Negative Negative [facility] Benzodiazepines [Presence] i n UrineOrdered By: Mitchel De Los Santos on 02-08-2022 Benzodiazepines Ql (U) Negative Negative [facility] Cannabinoids [Presence] in U rine by Screen methodOrdered By: Mitchel De Los Santos on 02-08-2022 Cannabinoids Screen Ql (U) Positive Negative [facility] Comment on above: These are unconfirme d results and should not be used for legal purposes. Drug Cut-Off Concentration: AMPH 1000 ng/mL SAMARIA 200 ng/mL ARJUN 200 ng/mL COCM 300 ng/mL OP 300 ng/mL PCP 25 ng/mL THC 20 ng/mL These are unconfirme d results and should not be used for legal purposes. Drug Cut-Off Concentration: AMPH 1000 ng/mL SAMARIA 200 ng/mL ARJUN 200 ng/mL COCM 300 ng/mL OP 300 ng/mL PCP 25 ng/mL THC 20 ng/mL Laboratory - Drug toxicology Ordered By: Mitchel De Los Santos on 02-08-2022 Opiates Ql (U) Negative Negative [facility] Phencyclidine Screen Ql (U)O rdered By: Mitchel De Los Santos on 02-08-2022 Phencyclidine Ql (U) Negative Negative [facility] Urine cocaine detectionOrder ed By: Mitchel De Los Santos on 02-08-2022 Cocaine Ql (U) Negative Negative [facility] COVID-19 SOFIAOrdered By: Do henny Quintanilla on 02-06-2022 SARS-CoV+SARS-CoV-2 (COVID-19) Ag IA.rapid Ql (Resp) Negative Negative [facility] Comment on above: This is a duplicate Iraida SARS Antigen (HAILEE) result to be used for statistical tracking purpose only. No Panel InformationOrdered By: Boo Quintanilla on 02-06-2022 SARS Antigen (LFIA) [facility] Cardiovascular Lab Reporton 01-21-2019 Cardiovascular Lab Report [facility] Patient Name: Mary Aburto [facility] MR #: [id number] Physician: Virgilio Bundy of [facility] Date: 01/21/2019 Division of Birthdate: 1960 Cardiology Room #: CC Adult Cardiovascular Services [facility] [address]. [place] [address] Cardiovascular Laboratory Report INDICATION: The patient is a 58-year-old man, who was evaluated in Cardiology Clinic because of chest pain. Stress test was performed and he developed chest pain during the stress test. Because of that, he was referred for cardiac catheterization. PROCEDURES: 1. Bilateral selective coronary angiography from the left radial access. METHOD: The procedure was explained to the patient with risks and benefits. He signed informed consent. 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 The left wrist area was prepped and draped in usual fashion. Chas's test was favorable. Access in the left radial artery was obtained using micropuncture technique, a 6-Bahraini x 11 cm Hydrophilic sheath was advanced. Verapamil was given through the sheath and heparin was administered intravenously. Bilateral selective coronary angiography was then performed using 6-Bahraini JL4 and JR4 diagnostic catheters. Catheters were removed. Access sheath was removed and a compression dressing applied for hemostasis. He tolerated the procedure well. He will be observed for 2 to 3 hours in recovery area and then discharged to home. TOTAL FLUORO TIME: 2.03 minutes. TOTAL AIR KERMA: 241 mGy. TOTAL CONTRAST VOLUME: 20 mL. HEMODYNAMICS: AO 120/85, mean 101. CORONARY ANGIOGRAPHY: This is a left dominant circulation. Left main. This arises from left coronary cusp. It bifurcates into left anterior descending and circumflex vessels. Left main is free of disease. Left anterior descending. This has severe sluggish flow, but no angiographic disease otherwise. Circumflex vessel. This is a large and dominant vessel. It has no angiographic disease other than significant sluggish flow. Right coronary artery. This arises from the right coronary cusp. It is a moderate-sized and nondominant vessel. It has no luminal disease except for significant sluggish flow. SUMMARY OF FINDINGS: Absence of luminal coronary artery disease; however significant sluggish flow was noted throughout the arterial tree. RECOMMENDATIONS: 1. Aspirin for life. 2. Statin therapy for life. His pravastatin will be increased from 10 mg daily to 40 mg daily. 3. Maximum control of risk factors. 4. Follow up in Cardiology Clinic. Electronically Signed by: Virgilio Edwards M.D. 02/02/2019 06:04 P Virgilio Edwards M.D. Date Dict: 01/21/2019/02:15 P/Virgilio Edwards M.D. Date Trans: 01/21/2019 04:37 P/gageo [id number] cc: Boo Quintanilla M.D. [address], [facility] [id number] [facility] Vital Signs Date Time Vital Sign Value Performing Clinician Facility 10-18-2023 14:49-0500 Diastolic blood pressure 80 mm[Hg] [facility] 10-18-2023 14:49-0500 Heart rate 58 /min [facility] 10-18-2023 14:49-0500 Mean blood pressure 89 mm[Hg] [facility] 10-18-2023 14:49-0500 Respiratory rate 16 /min Dami[facility] 10-18-2023 14:49-0500 Systolic blood pressure 108 mm[Hg] [facility] 08-14-2023 15:40-0400 Body height 177.8 cm Antwon Hastings Other [facility] Other 08-14-2023 15:40-0400 Body mass index (BMI) [Ratio] 22.24 kg/m2 Antwon Hastings Other [facility] Other 08-14-2023 15:40-0400 Body weight 70.31 kg Antwon Hastings Other [facility] Other 04-03-2023 15:40-0400 Body height 177.8 cm Antwon Hastings Other [facility] Other 04-03-2023 15:40-0400 Body mass index (BMI) [Ratio] 7.32 kg/m2 Antwon Hastings Other [facility] Other 04-03-2023 15:40-0400 Body weight 23.13 kg Antwon Hastings Other [facility] Other 02-27-2023 14:00-0400 Body height 177.8 cm Antwon Hastings Other [facility] Other 02-27-2023 14:00-0400 Body mass index (BMI) [Ratio] 21.66 kg/m2 Antwon Hastings Other [facility] Other 02-27-2023 14:00-0400 Body weight 68.49 kg Antwon Hastings Other [facility] Other 02-27-2023 14:00-0400 Diastolic blood pressure 80 mm[Hg] Antwon Hastings Other [facility] Other 02-27-2023 14:00-0400 Systolic blood pressure 128 mm[Hg] Antwon Hastings Other [facility] Other 02-14-2023 07:57-0400 Body temperature 97.5 [degF] MD Boo Quintanilla Work Phone: [facility] 02-14-2023 07:57-0400 Diastolic blood pressure 85 mm[Hg] MD Boo Quintanilla Work Phone: [facility] 02-14-2023 07:57-0400 Heart rate 89 /min MD Boo Quintanilla Work Phone: [facility] 02-14-2023 07:57-0400 Respiratory rate 18 /min MD Boo Quintanilla Work Phone: [facility] 02-14-2023 07:57-0400 SaO2% (BldA) [Mass fraction] 97 % MD Boo Quintanilla Work Phone: [facility] 02-14-2023 07:57-0400 Systolic blood pressure 135 mm[Hg] MD Boo Quintanilla Work Phone: [facility] 02-14-2023 06:00-0400 Body weight 75.9 kg MD Boo Quintanilla Work Phone: [facility] 02-13-2023 08:32-0400 Inhaled oxygen flow rate 2 L/min MD Boo Quintanilla Work Phone: [facility] 02-12-2023 07:33-0400 Body mass index (BMI) [Ratio] 22.4 kg/m2 MD Boo Quintanilla Work Phone: [facility] 02-12-2023 07:00-0400 Body height 175.26 cm MD Boo Quintanilla Work Phone: [facility] 01-11-2023 09:40-0400 Body height 177.8 cm Antwon Hastings Other [facility] [employer] Other 01-11-2023 09:40-0400 Body mass index (BMI) [Ratio] 20.37 kg/m2 Antwon Hastings Other [facility] Other 01-11-2023 09:40-0400 Body weight 64.41 kg Antwon Hastings Other [facility] Other 01-11-2023 09:40-0400 Diastolic blood pressure 90 mm[Hg] Antwon Hastings Other [facility] Other 01-11-2023 09:40-0400 Systolic blood pressure 128 mm[Hg] Antwon Hastings Other [facility] Other 12-07-2022 12:40-0500 Body height 177.8 cm Antwon Hastings Other [facility] Other 12-07-2022 12:40-0500 Body mass index (BMI) [Ratio] 20.37 kg/m2 Antwon Hastings Other [facility] Other 12-07-2022 12:40-0500 Body weight 64.41 kg Antwon Hastings Other [facility] Other 12-07-2022 12:40-0500 Respiratory rate 16 /min Antwon Hastings Other [facility] Other 08-01-2022 10:00-0400 Body height 177.8 cm Antwon Hastings Other [facility] Other 08-01-2022 10:00-0400 Body mass index (BMI) [Ratio] 20.37 kg/m2 Antwon Hastings Other [facility] Other 08-01-2022 10:00-0400 Body weight 64.41 kg Antwon Hastings Other [facility] Other 05-11-2022 11:40-0400 Body height 177.8 cm Antwon Hastings Other [facility] Other 05-11-2022 11:40-0400 Body mass index (BMI) [Ratio] 20.37 kg/m2 Antwon Hastings Other [facility] Other 05-11-2022 11:40-0400 Body weight 64.41 kg Antwon Hastings Other [employer] Other 03-16-2022 10:00-0400 Body height 177.8 cm Antwon Hastings Other [employer] Other 03-16-2022 10:00-0400 Body mass index (BMI) [Ratio] 20.43 kg/m2 Antwon Hastings Other [employer] Other 03-16-2022 10:00-0400 Body weight 64.59 kg Antwon Hastings Other [employer] Other 03-02-2022 15:59-0400 Body temperature 97.6 [degF] MD Boo Quintanilla Work Phone: [facility] 03-02-2022 15:59-0400 Diastolic blood pressure 86 mm[Hg] MD Boo Quintanilla Work Phone: [facility] 03-02-2022 15:59-0400 Heart rate 82 /min MD Boo Quintanilla Work Phone: [facility] 03-02-2022 15:59-0400 Respiratory rate 16 /min MD Boo Quintanilla Work Phone: [facility] 03-02-2022 15:59-0400 SaO2% (BldA) [Mass fraction] 95 % MD Boo Quintanilla Work Phone: [facility] 03-02-2022 15:59-0400 Systolic blood pressure 144 mm[Hg] MD Boo Quintanilla Work Phone: [facility] 03-02-2022 05:30-0400 Body weight 69 kg MD Boo Quintanilla Work Phone: [facility] 03-01-2022 19:34-0400 Inhaled oxygen flow rate 2 L/min MD Boo Quintanilla Work Phone: [facility] 03-01-2022 16:00-0400 Body height 175.26 cm MD Boo Quintanilla Work Phone: [facility] 03-01-2022 09:37-0400 Body mass index (BMI) [Ratio] 22.4 kg/m2 MD Boo Quintanilla Work Phone: [facility] 02-28-2022 12:21-0400 Diastolic blood pressure 102 mm[Hg] MD Boo Quintanilla Work Phone: [facility] 02-28-2022 12:21-0400 Heart rate 60 /min MD Boo Quintanilla Work Phone: [facility] 02-28-2022 12:21-0400 Respiratory rate 20 /min MD Boo Quintanilla Work Phone: [facility] 02-28-2022 12:21-0400 SaO2% (BldA) [Mass fraction] 98 % MD Boo Quintanilla Work Phone: [facility] 02-28-2022 12:21-0400 Systolic blood pressure 163 mm[Hg] MD Boo Quintanilla Work Phone: [facility] 02-28-2022 11:16-0400 Body temperature 98 [degF] MD Boo Quintanilla Work Phone: [facility] 02-28-2022 08:55-0400 Body height 175.26 cm MD Boo Quintanilla Work Phone: [facility] 02-28-2022 08:55-0400 Body mass index (BMI) [Ratio] 21.2 kg/m2 MD Boo Quintanilla Work Phone: [facility] 02-28-2022 08:55-0400 Body weight 65.31 kg MD Boo Quintanilla Work Phone: [facility] 02-23-2022 09:20-0400 Body height 177.8 cm Antwon Hastings Other [employer] Other 02-23-2022 09:20-0400 Body mass index (BMI) [Ratio] 20.66 kg/m2 Antwon Hastings Other [facility] [employer] Other 02-23-2022 09:20-0400 Body weight 65.32 kg Antwon Hastings Other [facility] [employer] Other 02-08-2022 16:10-0400 Diastolic blood pressure 81 mm[Hg] MD Boo Quintanilla Work Phone: [facility] 02-08-2022 16:10-0400 Heart rate 59 /min MD Boo Quintanilla Work Phone: [facility] 02-08-2022 16:10-0400 Respiratory rate 16 /min MD Boo Quintanilla Work Phone: [facility] 02-08-2022 16:10-0400 SaO2% (BldA) [Mass fraction] 100 % MD Boo Quintanilla Work Phone: [facility] 02-08-2022 16:10-0400 Systolic blood pressure 132 mm[Hg] MD Boo Quintanilla Work Phone: [facility] 02-08-2022 15:41-0400 Body height 175.26 cm MD Boo Quintanilla Work Phone: [facility] 02-08-2022 15:41-0400 Body mass index (BMI) [Ratio] 21.4 kg/m2 MD Boo Quintanilla Work Phone: [facility] 02-08-2022 15:41-0400 Body weight 66 kg MD Boo Quintanilla Work Phone: [facility] 02-08-2022 12:36-0400 Body temperature 98.5 [degF] MD Boo Quintanilla Work Phone: [facility] 01-26-2022 07:47-0400 Diastolic blood pressure 100 mm[Hg] MD Boo Quintanilla Work Phone: [facility] 01-26-2022 07:47-0400 Heart rate 80 /min MD Boo Quintanilla Work Phone: [facility] 01-26-2022 07:47-0400 Respiratory rate 16 /min MD Boo Quintanilla Work Phone: [facility] 01-26-2022 07:47-0400 SaO2% (BldA) [Mass fraction] 98 % MD Boo Quintanilla Work Phone: [facility] 01-26-2022 07:47-0400 Systolic blood pressure 147 mm[Hg] MD Boo Quintanilla Work Phone: [facility] 01-26-2022 07:43-0400 Body height 175.26 cm MD Boo Quintanilla Work Phone: [facility] 01-26-2022 07:43-0400 Body weight 63.5 kg MD Boo Quintanilla Work Phone: [facility] Encounters Encounter Date Encounter Type Care Provider Facility Start: 10-18-2023 End: 10-19-2023 ambulatory Damián Estrada [place] [place] Start: 10-18-2023 End: 10-18-2023 Pain Management Damián Estrada [facility] Start: 10-12-2023 End: 10-12-2023 ambulatory Antwon Hastings Other [facility] [employer] Other Start: 10-12-2023 Telephone encounter Antwon YUAN [facility] Start: 08-29-2023 End: 08-29-2023 ambulatory Antwon Hastings Other [facility] [employer] Other Start: 08-29-2023 Telephone encounter Antwon Hastings [employer] Start: 08-14-2023 End: 08-14-2023 ambulatory Antwon Hastings Facility:[facility] Start: 08-14-2023 End: 08-14-2023 Patient encounter procedure MD Boo Quintanilla Work Phone: [facility] Work Phone: Start: 08-14-2023 End: 08-14-2023 ambulatory MD Boo Quintanilla Work Phone: [facility] Work Phone: Start: 08-14-2023 Office outpatient vi sit 25 minutes Antwon Hastings [facility] Start: 05-22-2023 End: 05-22-2023 ambulatory Antwon Hastings Facility:[facility] Start: 05-22-2023 End: 05-22-2023 Patient encounter procedure MD Boo Quintanilla Work Phone: [facility] Work Phone: Start: 04-23-2023 End: 04-23-2023 ambulatory Antwon Hastings Other [employer] Other Start: 04-23-2023 Telephone encounter Antwon Hastings [facility] Start: 04-16-2023 End: 04-16-2023 ambulatory Antwon Hastings Other [employer] Other Start: 04-16-2023 Telephone encounter Antwon Hastings [facility] Start: 04-03-2023 End: 04-03-2023 Patient encounter procedure MD Boo Quintanilla Work Phone: [facility] Work Phone: Start: 04-03-2023 End: 04-03-2023 ambulatory MD Boo Quintanilla Work Phone: [facility] Work Phone: Start: 04-03-2023 Office outpatient vi sit 15 minutes Antwon Hastings [facility] Start: 03-27-2023 End: 03-27-2023 ambulatory Antwon Hastings Other [employer] Other Start: 03-27-2023 Telephone encounter Antwon Hastings [facility] Start: 03-05-2023 End: 03-05-2023 ambulatory Antwon Hastings Other [facility] [employer] Other Start: 03-05-2023 Telephone encounter Antwon Hastings [facility] Start: 02-27-2023 End: 02-27-2023 ambulatory Antwon Hastings Other [employer] Other Start: 02-27-2023 Postop follow up vis it related to original px Antwon Hastings [facility] Start: 02-26-2023 End: 02-26-2023 ambulatory Antwon Hastings Other [facility] [employer] Other Start: 02-26-2023 Telephone encounter Antwon Hastings [facility] Start: 02-24-2023 End: 02-24-2023 ambulatory Antwon Hastings Other [facility] [employer] Other Start: 02-24-2023 Telephone encounter Antwon Hastings [facility] Start: 02-23-2023 End: 02-23-2023 ambulatory Antwon Hastings Other [facility] [employer] Other Start: 02-23-2023 Telephone encounter Antwon Hastings [facility] Start: 02-17-2023 End: 02-17-[address] BOO QUINTANILLA . Facility: Start: 02-12-2023 End: 02-14-2023 Evaluation and management of inpatient Antwon Hastings Facility:[facility] Start: 02-12-2023 End: 02-14-2023 Evaluation and management of inpatient MD Boo Quintanilla Work Phone: [facility] Work Phone: Start: 01-29-2023 End: 01-29-2023 ambulatory Antwon Hastings Facility:[facility] Start: 01-29-2023 End: 01-29-2023 ambulatory MD Boo Quintanilla Work Phone: [facility] Work Phone: Start: 01-29-2023 End: 01-29-2023 Patient encounter procedure MD Boo Quintanilla Work Phone: [facility]Pre-Surgical Testing Work Phone: Start: 01-11-2023 End: 01-11-2023 ambulatory Antwon Hastings Other [employer] Other Start: 01-11-2023 Office outpatient vi sit 40 minutes Antwon Hastings [facility] Start: 12-25-2022 End: 12-25-2022 ambulatory Antwonabundio Hastings Facility:[facility] Start: 12-25-2022 End: 12-25-2022 ambulatory MD Boo Quintanilla Work Phone: [facility] Work Phone: Start: 12-25-2022 End: 12-25-2022 Patient encounter procedure MD Boo Quintanilla Work Phone: [facility] [place] Work Phone: Start: 12-07-2022 End: 12-07-2022 ambulatory Antwon Hastings Other [employer] Other Start: 12-07-2022 Office outpatient vi sit 15 minutes Antwon Hastings [facility] Start: 11-13-2022 End: 11-13-[address] BOO QUINTANILLA . Facility:[facility] Start: 10-23-2022 End: 10-23-2022 ambulatory Antwon Abundio Hastings Facility:[facility] Start: 10-23-2022 End: 10-23-2022 ambulatory MD Boo Quintanilla Work Phone: [facility] Work Phone: Start: 10-23-2022 End: 10-23-2022 Patient encounter procedure MD Boo Quintanilla Work Phone: [facility] [place] Work Phone: Start: 09-26-[address] BOO QUINTANILLA . Facili ty:[facility] Start: 08-01-2022 End: 08-01-2022 ambulatory Antwon Hastings Other [employer] Other Start: 08-01-2022 Office outpatient vi sit 15 minutes Antwon Hastings [facility] Start: 07-13-2022 End: 07-14-[address] BOO QUINTANILLA . Facility:[facility] Start: 07-06-2022 End: 07-07-[address] BOO QUINTANILLA . Facility:[facility] Start: 06-09-2022 End: 06-10-[address] BOO QUINTANILLA . Facility:[facility] Start: 05-11-2022 End: 05-11-2022 ambulatory Antwon Hastings Other [employer] Other Start: 05-11-2022 Postop follow up vis it related to original px Antwon Hastings [facility] Start: 05-11-2022 End: 05-11-2022 Patient encounter procedure MD Boo Quintanilla Work Phone: [facility] Start: 04-15-2022 End: 04-15-[address] BOO QUINTANILLA . Facility:[facility] Start: 03-23-2022 End: 03-23-2022 ambulatory Antwon Hastings Other [employer] Other Start: 03-23-2022 Telephone encounter Antwon Hastings [facility] Start: 03-16-2022 End: 03-16-2022 ambulatory Antwon Hastings Other [employer] Other Start: 03-16-2022 Postop follow up vis it related to original px Antwon Hastings [facility] Start: 03-15-2022 End: 03-16-[address] ANTWON HASTINGS Facility:[facility] Start: 03-07-2022 End: 03-07-2022 ambulatory Lele oFng Other [employer] Other Start: 03-07-2022 Telephone encounter Lele Quiñones [facility] Start: 03-02-[address] Rigo Hughes Fac ility:[facility] Start: 03-01-2022 Admission to same da y surgery center Antwon Hastings [facility] Start: 03-01-2022 End: 03-01-2022 ambulatory Antwon Hastings Other [facility] [employer] Other Start: 02-28-2022 End: 03-02-2022 Evaluation and management of inpatient MD Boo Goldman Phone: [facility] Start: 02-28-[address] Rigo Hughes Facility:[id number] Start: 02-23-2022 End: 02-23-2022 ambulatory Antwon Hastings Other [facility] [employer] Other Start: 02-23-2022 Office outpatient ne w 60 minutes Antwon Venkata [facility] Start: 02-08-2022 End: 02-08-2022 Admission to same day surgery center MD Boo Goldman Phone: [facility] [place] Start: 02-06-2022 End: 02-06-2022 Patient encounter procedure MD Boo Goldman Phone: [facility]Pre[facility]Surgical Testing Start: 01-26-2022 End: 01-26-2022 Patient encounter procedure MD Boo Goldman Phone: [facility] [place] Start: 01-21-2019 End: 01-22-2019 Patient encounter procedure PROVIDER UNKNOWN Facility:[facility] Procedures Date Procedure Procedure Detail Performing Clinician Start: 08-14-2023 X-ray of cervical spine MD Boo Goldman Phone: Start: 05-22-2023 X-ray of cervical spine MD Boo Goldman Phone: Start: 04-03-2023 X-ray of cervical spine MD Boo Goldman Phone: Start: 02-12-2023 X-ray of cervical spine MD Boo Goldman Phone: Start: 12-25-2022 MRI of cervical spin e with contrast MD Boo Quintanilla Work Phone: Start: 10-23-2022 X-ray of cervical spine MD Boo Quintanilla Work Phone: Start: 06-09-[address] ANTWON ESPINOZA Comment on above: Performed By: #### I SAMEER, PSASC, VITB12 #### [facility] [address] [place] [address] Dr. Edilson Mortensen Start: 05-11-2022 X-ray of cervical spine MD Boo Quintanilla Work Phone: Start: 03-01-2022 Decompression of cer vical spine MD Boo Quintanilla Work Phone: Start: 03-01-2022 X-ray of cervical spine MD Boo Quintanilla Work Phone: Start: 02-28-2022 SARS Antigen (LFIA) MD Boo Quintanilla Work Phone: Start: 02-28-2022 Plain chest X-ray MD Cooley Work Phone: Start: 02-08-2022 OR CAT/MRI W/ IV SED ATION (Not Applicable) MD Boo Quintanilla Work Phone: Start: 02-08-2022 MRI of cervical spin e with contrast MD Boo Quintanilla Work Phone: Start: 02-06-2022 SARS Antigen (LFIA) MD Boo Quintanilla Work Phone: Start: 01-21-2019 Cardiac catheter (ph ysical object) Damián Estrada Comment on above: Dr. Edwards Bone structure of cl avicle (body structure) Damián Estrada Cervical laminectomy Agatha Estrada Plan of Treatment Date Care Activity Detail Author Start: 02-14-2023 [facility] Start: 02-12-2023 Fusion of 2 or more Cervical Vertebral Joints with Autologous Tissue Substitute, Posterior Approach, Posterior Column, Open Approach Fusion of 2 or more Cervical Vertebral Joints with Autologous Tissue Substitute, Posterior Approach, Posterior Column, Open Approach [facility] Start: 02-12-2023 Fusion of Cervicothoracic Vertebral Joint with Autologous Tissue Substitute, Posterior Approach, Posterior Column, Open Approach Fusion of Cervicothoracic Vertebral Joint with Autologous Tissue Substitute, Posterior Approach, Posterior Column, Open Approach [facility] Start: 02-12-2023 Fusion of Thoracic Vertebral Joint with Autologous Tissue Substitute, Posterior Approach, Posterior Column, Open Approach Fusion of Thoracic Vertebral Joint with Autologous Tissue Substitute, Posterior Approach, Posterior Column, Open Approach [facility] Start: 02-12-2023 Removal of Internal Fixation Device from Cervical Vertebral Joint, Open Approach Removal of Internal Fixation Device from Cervical Vertebral Joint, Open Approach [facility] Start: 10-23-2022 X-ray of cervical spine XR cerv spine AP/LAT/FLX/EXT [facility] Start: 10-23-2022 XR Cervical spine 4 Views [facility] Start: 03-01-2022 X-ray of cervical spine XR cervical spine 2V [facility] Start: 02-28-2022 Fusion of 2 or more Cervical Vertebral Joints with Synthetic Substitute, Posterior Approach, Posterior Column, Open Approach [facility] Start: 02-28-2022 Introduction of Recombinant Bone Morphogenetic Protein into Joints, [facility] Approach [facility] Start: 02-08-2022 OR CAT/MRI W/ IV SEDATION (Not Applicable) OR CAT/MRI W/ IV SEDATION (Not Applicable) [facility] Start: 02-08-2022 MRI of cervical spine with contrast MR cervical spine wo/w con [facility] Patient Education Moderate and D eep Sedation in Adults General Anesthesia (DC) [facility] Work Phone: Patient referral [facility] Work Phone: Immunizations Immunization Date Immunization Notes Care Provider Fa cility 11-09-2021 COVID-19 Heaven Randolph (Pfizer) MD Boo Quintanilla Work Phone: [facility] 02-28-2021 COVID-19 mRNAHeaven (Pfizer) MD Boo Quintanilla Work Phone: [facility] 02-07-2021 COVID-19 Heaven Randolph (Pfizer) MD Boo Quintanilla Work Phone: [facility] 07-31-2019 influenza virus vaccine, unspecified formulation Damián Estrada [facility] [place] Payers Date Payer Category Payer Unknown 2022 Medicare [id number] 2022 Self-pay [id number] 1960 Unknown [id number] 2.16.8 [id number] 1960 Unknown [id number] 2.16. [id number] 1962 Unknown [id number] 2.16. 840.1.807641.3.579.2.356 1962 Unknown [id number] 2.16.84 0.1.599690.3.579.2.593 1962 Unknown [id number] 2.16.84 0.1.086256.3.579.2.593 1962 Unknown [id number] 2.16.84 0.1.283511.3.579.2.593 1962 Unknown [id number] 2.16.84 0.1.925631.3.579.2.593 1962 Unknown [id number] 2.16.84 0.1.867088.3.579.2.593 1962 Unknown [id number] 2.16.84 0.1.129354.3.579.2.593 1962 Unknown [id number] 2.16.84 0.1.128253.3.579.2.593 1962 Unknown [id number] 2.16.84 0.1.712830.3.579.2.593 1962 Unknown [id number] 2.16.8 40.1.946711.3.579.2.727 1959 Unknown [id number] 1959 Unknown [id number] 2.16.8 [id number] Unknown [id number] 2.16.8 40.1.892259.3.579.2.531 Unknown [id number] 2.16.8 40.1.991307.3.579.2.531 Unknown [id number] 2.16.8 40.1.974150.3.579.2.531 Unknown [id number] 2.16.8 40.1.393022.3.579.2.531 Unknown [id number] 2.16.8 40.1.351165.3.579.2.531 Unknown [id number] 2.16.8 40.1.284208.3.579.2.531 Unknown [id number] 2.16.8 40.1.882947.3.579.2.531 Social History Date Type Detail Facility Tobacco smoking stat [facility] Unknown if ever smoked [facility] Work Phone: Start: 1960 Sex Assigned At Male F [facility] Start: 09-10-2019 End: 02-08-2022 Tobacco smoking status KYIS Ex-smoker (finding) [facility] Start: 02-28-2022 Tobacco smoking stat [facility] Never smoked tobacco (finding) [facility] Sex Assigned At [facility] Tobacco smoking status Never [facility] Medical Equipment Procedure Code Equipment Code Equipment Origin al Text Equipment Identifier Dates Decompression, spine, cervical, posterior approach CANCELLOUS 30CC CRUSHED FDA Start: 03-01-2022 Decompression, spine, cervical, posterior approach Bone-screw internal spinal fixation system, non-sterile ()[id number] FDA Start: 03-01-2022 Decompression, spine, cervical, posterior approach Bone-screw internal spinal fixation system, non-sterile ()[id number] FDA Start: 03-01-2022 Decompression, spine, cervical, posterior approach Bone-screw internal spinal fixation system, non-sterile ()[id number] FDA Start: 03-01-2022 Decompression, spine, cervical, posterior approach Bone-screw internal spinal fixation system, non-sterile ()[id number] FDA Start: 03-01-2022 Decompression, spine, cervical, posterior approach Spinal fusion graft kit ()[id number] FDA Start: 03-01-2022 Decompression, spine, cervical, posterior approach Bone-screw internal spinal fixation system, non-sterile ()[id number] FDA Start: 03-01-2022 Decompression, spine, cervical, posterior approach Bone-screw internal spinal fixation system, non-sterile ()[id number] FDA Start: 03-01-2022 Decompression, spine, cervical, posterior approach Bone-screw internal spinal fixation system, non-sterile ()[id number] FDA Start: 03-01-2022 Decompression, spine, cervical, posterior approach Bone-screw internal spinal fixation system, non-sterile ()[id number] FDA Start: 03-01-2022 Decompression, spine, cervical, posterior approach Bone-screw internal spinal fixation system, non-sterile ()[id number] FDA Start: 03-01-2022 Decompression, spine, cervical, posterior approach Bone-screw internal spinal fixation system, non-sterile ()[id number] FDA Start: 03-01-2022 Decompression, spine, cervical, posterior approach CANCELLOUS 30CC CRUSHED FDA Start: 03-01-2022 Decompression, spine, cervical, posterior approach CANCELLOUS 30CC CRUSHED FDA Start: 03-01-2022 Decompression, spine, cervical, posterior approach CANCELLOUS 30CC CRUSHED FDA Start: 03-01-2022 Decompression, spine, cervical, posterior approach CANCELLOUS 30CC CRUSHED FDA Start: 03-01-2022 Decompression, spine, cervical, posterior approach CANCELLOUS 30CC CRUSHED FDA Start: 02-12-2023 Decompression, spine, cervical, posterior approach Bone-screw internal spinal fixation system, non-sterile ()[id number] FDA Start: 02-12-2023 Decompression, spine, cervical, posterior approach Spinal fusion graft kit ()[id number] FDA Start: 02-12-2023 Decompression, spine, cervical, posterior approach Bone-screw internal spinal fixation system, non-sterile ()[id number] FDA Start: 02-12-2023 Decompression, spine, cervical, posterior approach Bone-screw internal spinal fixation system, non-sterile ()[id number] FDA Start: 02-12-2023 Decompression, spine, cervical, posterior approach CANCELLOUS 30CC CRUSHED FDA Start: 03-01-2022 Decompression, spine, cervical, posterior approach CANCELLOUS 30CC CRUSHED FDA Start: 02-12-2023 Goals Date Patient Goal Desired Activity /State Functional Status Date Assessment Result Facility 10-18-2023 Functional Status N/A [facility] 02-14-2023 Functional status Patient at Baseline [facility] Work Phone: 03-02-2022 Functional status Patient at [facility] Work Phone: 02-28-2022 Functional status Functional Status Comme nt [facility] Work Phone: Mental Status Date Assessment Result Facility 02-14-2023 Cognitive function Cognitive Sta tus Patient at Baseline [facility] Work Phone: 03-02-2022 Cognitive function Cognitive Sta tus Patient at Baseline [facility] Work Phone: Clinical Notes 02-23-2022 to 10-18-2023 Note Date & Type Note Facility 10-18-2023 Evaluation + Plan note Extrac carlos from: Title:Pain Management * Author:Agatha Estrada DO Date:10/18/23 Impression and Plan History, physical examination, and personal review of pertinent imaging results indicate a diagnosis of: -Cervical postlaminectomy pain syndrome and cervical radiculopathy Plan: -Will obtain a cervical spine x-ray due to his recent exacerbation of pain in February compared to prior imaging studies and discussed with his surgeon if needed to evaluate hardware positioning -We may also consider advanced imaging or interventions based on results of his initial x-ray -Plan to follow-up 1 month or sooner if any issues arise Patient was counseled on the above diagnosis and treatment, all questions were answered and patient agrees to adhere to the plan above. Risk and benefits of appropriate procedures and medications were reviewed as well with patient, who voiced understanding and agreeance. Patient was counseled on smoking cessation and/or continuing to abstain from nicotine/tobacco products as appropriate based on history; as smoking/nicotine can contribute to increased pain overall and decreased wound healing. Patient counseled on maintaining a healthy BMI as part of the total treatment of their pain and to reduce stress/strain on joints. Patient invited to return or call with any questions or concerns that arise. Future Appointments Appointment Date:11/29/2023 03:15:00 PM Scheduled Provider:Damián Estrada DO Location:.[facility] Appointment Type:Pain Management - Follow Up (FT) [facility]10-17-2023 Evaluation note* Encounter Date Diagnosis Assessment Notes Treatment Notes Treatment Clinical Notes Jul, Cervical radiculopathy at C8 (ICD-10 - M54.12) Mr. Aburto is actually feeling better overall he is having less pain than he did previously his hand strength is remarkably better in the C8 distribution his interossei are still poor. I obtained a x-ray of the cervical spine and independently reviewed this comparing it to previous showing what I appear to be a solid construct he I think is having pain from adjacent segments being mobile with a long construct nearby I have personally contacted a pain management doctor about injections in this area who agrees and will see the patient. We will follow-up with him in 6 months with another x-ray. Jul, Spondylolisthesis, cervical region (ICD-10 - M43.12) [facility] 06-06-2023 Evaluation note* Encounter Date Diagnosis Assessment Notes Treatment Notes Treatment Clinical Notes Mar, Cervical radiculopathy at C8 (ICD-10 - M54.12) At 6 to 7 weeks the patient is actually doing pretty good I will continue to decrease his pain medication he is aware of that he admits he has been taking it for a long time. 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 Mar, Spondylolisthesis, cervical region (ICD-10 - M43.12) [facility] 05-02-2023 Evaluation note* Encounter Date Diagnosis Assessment Notes Treatment Notes Treatment Clinical Notes February, Cervical radiculopathy at C8 (ICD-10 - M54.12) The patient actually looks comfortable his wound is healing well his hand function is exceptionally good. I do not have an x-ray yet we will order one in the next 30 days. We talked about how he takes pain medication all seem to be in agreement I will follow-up with him in 30 days with a static x-ray of the cervical spine. February, Spondylolisthesis, cervical region (ICD-10 - M43.12) [facility] 03-16-2023 Evaluation note* Encounter Date Diagnosis Assessment Notes Treatment Notes Treatment Clinical Notes Dec, Cervical spondylosis with myelopathy (ICD-10 - M47.12) Dec, Cervical radiculopathy at C8 (ICD-10 - M54.12) I independently reviewed the dynamic x-ray of the cervical spine and also the MRI. It is difficult to image C7-T1 and I cannot tell if there is instability. He has intact hardware at the remainder of the neck. On MRI of the cervical spine the spinal canal is normal, hardware is present, there is moderate to severe foraminal stenosis, right worse than left of C7-T1. This patient has a severe C8 radiculopathy with hand atrophy and weakness; this is secondary to hypermobility at adjacent segment at C7-T1. He is in need of posterior cervical decompression C7-T1 with hardware lateral mass screws C6-C7 and pedicle screws T1 and T2 with rods and lateral fusion. T1 and T2 are necessary because at the cervical thoracic junction. There is a great deal of vector forces and we need to go in essence to open to down from the level of the pathology. I reviewed the iimaging face to face with the patient and discussed the treatment options in detail, along with risks and benefits of surgery. I discussed this with the patient the indication operation postop course risk benefits of surgery and complications to include infection, paralysis, incomplete relief of symptoms, spinal fluid leak, nerve damage, and hardware failure. He has got intractable pain weakness and disability and needs to be operated on. He went to physical therapy had 1 session and was immediately disengaged by the therapist. At this point he has failed physical therapy, he has weakness atrophy pain and is in need of cervical decompression and stabilization as above. Patient understands agrees and would like to proceed with surgical intervention.He will need to wear a collar postoperatively Dec, Spondylolisthesis, cervical region (ICD-10 - M43.12) [facility] 02-09-2023 Evaluation note* Encounter Date Diagnosis Assessment Notes Treatment Notes Treatment Clinical Notes Nov, Cervical spondylosis with myelopathy (ICD-10 - M47.12) This patient was seen by physical therapist 1 time and was immediately disengaged because of his severe disability. He continues to have a very weak right hand, probably C8 radiculopathy. He is in desperate need of a MRI of the cervical spine with and without gadolinium. As soon as that is completed I will see the patient in the office and we will look into potential options for him. He will nned sedated with Valium for the MRI. An order for a one time dose of Valium will be sent. 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 This may never get better because of the chronicity of the injury. His x-ray shows good hardware placement. I will see him again in October with 1 more x-ray to ensure he is healing well. I have explained to him that certain parts of his neurologic exam may never improve. Jul, Spondylolisthesis, cervical region (ICD-10 - M43.12) [facility] 07-14-2022 Evaluation note* Encounter Date Diagnosis Assessment Notes Treatment Notes Treatment Clinical Notes Apr, Cervical spondylosis with myelopathy (ICD-10 - M47.12) I independently evaluated the plain x-ray of the cervical spine and the report and compared to previous. Findings are stable. The displacing and alignment at C2-3 and C3-4 are much improved. Patient's gait has overall improved. I am concerned he may be developing an ulnar neuropathy on the right. With a recent blood clot on Xarelto the probability of a improvement or fix in the near future is not likely but I would like to obtain an EMG of the right upper extremity. I will see the patient back in 2 to 3 months with another xray Apr, Ulnar neuropathy of right upper extremity (ICD-10 - G56.21) [facility] 05-19-2022 Evaluation note* Encounter Date Diagnosis Assessment Notes Treatment Notes Treatment Clinical Notes February, Cervical spondylosis with myelopathy (ICD-10 - M47.12) At 3 weeks postop the patient is now off of steroids and I suspect this is why he feels he is worse. His hand in my opinion is actually better than it was preop, although not as good as it was while he was on steroids. The similar findings are with walking after discussing with the patient. I think he understands and agrees to this. His neck pain is reasonably good, his posture is excellent. I looked at his AP and lateral x-ray independently, showing good alignment with hardware. I have given the patient encouragement. I will see him again in 6 weeks with another x-ray. Hopefully we will take the brace off around that time. [facility] 05-05-2022 Progress note Author Antwon Hastings [facility] March 02, 2022 7:55am Note Date/Time March 02, 2022 7:55am [facility] [address] [place] [address] Neurosurgery Progress Note Signed Patient: Mayr Aburto MR#: [id number] : 1960 Acct:[id number] Age/Sex: 62 / M Adm Date: 2 Loc: 4N Room: 0F7435-2 Type : ADM IN Attending Dr: Antwon Hastings MD Copies to: ~ Date of Service: 03/02/2022 Subjective Subjective HPI: Patient in bed awake and alert. Says his right arm is better, his neck pain is severe but better than yesterday. Exam Physical Exam Vital Signs: Temp Pulse Resp BP Pulse Ox 97.5 F L 66 18 170/103 H 98 03/02/22 04:00 03/02/22 04:00 03/02/22 04:00 03/02/22 04:00 03/02/22 04:00 Narrative: Upper and lower extremities strength and motion baseline Gait grossly normal Incision clean and dry Brace fitting appropriately Able to open hand well Assessment/Plan Assessment/Plan (1) Cervical disc disorder with myelopathy: Plan: Postoperative day #1 the patient is having probably more pain than usual. His arm function is doing well I will manipulate his pain medications by stopping Flexeril starting Ativan. He will have therapy today. Code(s): M50.00 - Cervical disc disorder with myelopathy, unspecified cervical region Status: Acute (2) Right arm weakness: Code(s): R29.898 - Other symptoms and signs involving the musculoskeletal system Status: Acute Documented By: Antwon Hastings MD 03/02/22 0743 Signed By: <Electronically signed by MD Antwon Hastings> 03/02/22 0755 [facility] Work Phone: [phone]) 801-879405-04-2022 History and physical note Author Antwon Hastings [facility] March 01, 2022 8:22am Note Date/Time March 01, 2022 8:21am [facility] [address] [place] [address] Neurosurgery H&P Signed with Addenda Patient: Mary Aburto MR#: [id number] : 1960 Acct:[id number] Age/Sex: 62 / M Adm Date: 2 Loc: Room: [address] [place] [address] Type : ADM IN Attending Dr: Antwon Hastings MD Copies to: MD Boo Tran MD~ ADDENDUM1 Date of admission is 02/28/2022, patient was seen in the emergency room Addendum Documented By: MD Antwon Hastings 03/01/22821 Addendum Signed By: <Electronically signed by MD Antwon Hastings> 03/01/22821 Date of Service: 03/01/2022 History of Present Illness History of Present Illness Chief Complaint: Neck and right arm pain with right arm weakness HPI: This is a 62-year-old male with a previous anterior cervical fusion in the remote past. Over the past several months he has had an increase in right arm pain. Whenever he would move his neck either into extension or to the side he would get electric shocks down his right arm. He then began to notice right armweakness. Patient is unable to fully extend the fingers of his hand his linux system administrator isweak he has had very little use of his right arm over the last 30 days. He is developing significant shoulder pain. 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 This began without illness injury or trauma. It was insidious in onset. He no longer can tolerate the symptoms. He saw me in the office last week at which point I signed him for elective surgery with a C2-3-4 5 posterior cervical fusion and possible decompression. I started him on oral steroids. Over the past several days the patient has noted that his right hand linux system administrator is become weaker and his right arm is becoming weaker despite the steroids per my instructions with this progressive weakness he presented back to the emergency room for evaluation and now subsequent admission. The pain is severe in the right arm his right hand isweaker he can no longer lift objects he can lift a week ago with his right arm. His gait is unsteady. He is very concerned about this Review of Systems Review of Systems All other systems reviewed & are negative unless noted below or in HPI PMFSH Vaccinated for COVID-19?: Yes Medical History Hypertension Myocardial infarct Surgical History History of orthopedic surgery R shoulder surgery with approx 18 pins S/P cervical spinal fusion Family History Father Lung cancer Mother Diabetes Sister Cancer Sister Cancer Social History Smoking Status: Former smoker Substance Use Type: None Substance Abuse Comment: States he has had no Alcohol for last 2 months Meds Medications and Allergies Allergies Penicillins Allergy (Verified 02/28/22 09:00) Swelling Sulfa (Sulfonamide Antibiotics) Allergy (Verified 02/28/22 09:00) Swelling Home Medications aspirin 81 mg capsule 81 mg PO DAILY 02/07/22 [History Confirmed 02/28/22] atorvastatin 40 mg tablet 40 mg PO DAILY 02/07/22 [History Confirmed 02/28/22] baclofen 10 mg tablet 10 - 20 mg PO QHS 02/07/22 [History Confirmed 02/28/22] gabapentin 300 mg capsule 300 mg PO BID 02/07/22 [History Confirmed 02/28/22] ibuprofen 800 mg tablet 800 mg PO Q4-6H PRN 02/07/22 [History Confirmed 02/28/22] indomethacin 50 mg capsule 50 mg PO TID 02/07/22 [History Confirmed 02/28/22] levothyroxine 75 mcg tablet 75 mcg PO DAILY 02/07/22 [History Confirmed 02/28/22] metoprolol tartrate 25 mg tablet 25 mg PO BID 02/07/22 [History Confirmed 02/28/22] phenytoin sodium extended 100 mg capsule 300 mg PO BID 02/07/22 [History Confirmed 02/28/22] trazodone 100 mg tablet 100 mg PO QHS 02/07/22 [History Confirmed 02/28/22] dexamethasone 4 mg tablet 4 mg PO TID 02/28/22 [History Confirmed 02/28/22] oxycodone-acetaminophen 5 mg-325 mg tablet (Percocet) 1 tab PO Q4-6H PRN 02/28/22 [History Confirmed 02/28/22] Exam Physical Exam Vital Signs: Temp Pulse Resp BP Pulse Ox 97.8 F 62 15 138/91 96 03/01/22 07:28 03/01/22 07:28 03/01/22 07:28 03/01/22 07:28 03/01/22 07:28 Narrative: Neurologic: patient is alert and oriented to time place and person cooperative and gives a good history. Sensory:normal light touch upper and lower extremity and trunk through all majordermatomes spine: no palpable tenderness cervical spine, thoracic spine, lumbar spine. Motor: deltoid bicep tricep handgrip iliopsoas quadricep anterior tibial gastrocnemius are grossly 5/5 on the left. Right upper extremity has a painful shoulder with passive range of motion deltoid 4/5, bicep 4-/5 (weaker than 1 week ago) handgrip 3-4/5 (weaker than 1 week ago) finger extension unchanged from previous exam incomplete. Cerebellar: no leadpipe rigidity normal rapid alternating movements reflexes: 3-4+ upper and lower extremities bilaterally with no clonus, bilateralpositive Logan sign. Cranial nerve examination: Cranial nerve I smell is intact Cranial nerve II vision full to all quadrants bilateral Cranial nerve III pupils were equal round reactive to light unable to do a funduscopic examination Cranial nerve IV through : extraocular motion full to all quadrants Cranial nerve V: V1 V2 V3 intact Cranial nerve VII: face symmetrical bilaterally Cranial nerve VIII hearing intact bilaterally Cranial nerve IX-XI patient can phonate well able to swallow palate elevates able to shrug shoulders Cranial nerve XII tongue midline hips normal range of motion without Julissa's sign Skin: reasonable turgor and texture no unusual bruising Extremities: 0-1 pulses 0-1+ pulses upper and lower extremity abdomen: soft nontender Lungs: clear bilaterally Heart: regular rate and rhythm without murmur rub or gallop Neck: supple Head: atraumatic Results Lab Results Labs: Laboratory Results - Last 48 hrs. 02/28/22 15:07: PHA Creatinine Clear 72.57, Sodium 133 L, Potassium 3.9, Chloride 97, Carbon Dioxide 24.7, BUN 13, Creatinine 1.00, Est GFR ( Amer) > 60, Est GFR (Non-Af Amer) > 60, Glucose 130 H, Calcium 9.0 02/28/22 15:07: B-Natriuretic Peptide 79.0 02/28/22 15:07: PT 10.0, INR 0.9, APTT 24.3 L 02/28/22 15:07: Corrected WBC 13.1 H, Uncorrected WBC Count 13.1 H, RBC 4.38, Hgb 15.3, Hct 43.3, MCV 99.0, MCH 34.9, MCHC 35.2, RDW 13.3, Plt Count 316, MPV 6.4 L, Neut % (Auto) 77.8, Lymph % (Auto) 15.3, Assumption % (Auto) 6.2, Eos % (Auto) 0.4, Baso % (Auto) 0.3, Neut # (Auto) 10.2 H, Lymph # (Auto) 2.0, Assumption # (Auto) 0.8, Eos # (Auto) 0.0, Baso # (Auto) 0.0, Nucleated RBC % (auto) 0.0 02/28/22 09:50: PHA Creatinine Clear 74.82, Sodium 133 L, Potassium 4.1, Chloride 100, Carbon Dioxide 23.7, BUN 13, Creatinine 0.97, Est GFR ( Amer) > 60, Est GFR (Non-Af Amer) > 60, Glucose 123 H, Calcium 9.0, Total Bilirubin 0.4, AST 14, ALT 25, Alkaline Phosphatase 67, Total Protein 6.2, Albumin 3.5, Globulin 2.7, Albumin/Globulin Ratio 1.3 02/28/22 09:50: PT 10.0, INR 0.9 02/28/22 09:50: Corrected WBC 13.1 H, Uncorrected WBC Count 13.1 H, RBC 4.47, Hgb 15.1, Hct 44.1, MCV 98.6, MCH 33.9, MCHC 34.3, RDW 13.3, Plt Count 316, MPV 6.4 L, Neut % (Auto) 82.2, Lymph % (Auto) 9.5, Assumption % (Auto) 7.6, Eos % (Auto) 0.1, Baso % (Auto) 0.6, Neut # (Auto) 10.8 H, Lymph # (Auto) 1.2, Assumption # (Auto) 1.0 H, Eos # (Auto) 0.0, Baso # (Auto) 0.1, Nucleated RBC % (auto) 0.1 02/28/22 09:40: SARS Antigen (LFIA) Negative 02/28/22 09:40: COVID-19 Clin Com Negative Microbiology Micro: Microbiology - Results from entire visit 02/28/22 09:40 Nasal SARS Antigen (LFIA) - Final Imaging Additional studies: MRI of the cervical spine and report, plain x-ray of the cervical spine and report Assessment/Plan (1) Cervical disc disorder with myelopathy: Plan: In the MRI machine this patient cervical spine is in perfect alignment when he sits normal he has 3 to 4 mm subluxation of C2-3 and C3-4 which obviously resultin spinal cord compression. He has marginal room around the cord in line. Thisgentleman has a progressive cervical myelopathy with decreased function in his right arm that scot neurologically worse over the last week despite oral steroids. For this reason he now presents for elective cervical decompression and stabilization C2-5. The patient is aware the indication operation postop course risk benefits of surgery and complications to include paralysis incomplete relief of symptoms, infection, bleeding. He would like to proceed with surgical intervention. Plan is for surgery in the a.m. 03/01/2022 Code(s): M50.00 - Cervical disc disorder with myelopathy, unspecified cervical region Status: Acute (2) Right arm weakness: Code(s): R29.898 - Other symptoms and signs involving the musculoskeletal system Status: Acute Documented By: Antwon Hastings MD 03/01/22812 Signed By: <Electronically signed by MD Antwon Hastings> 03/01/22820 [facility] Work Phone: 1(509) 487-493005-03-2022 Consult note Author W Deejay Hughes [facility] February 28, 2022 7:06pm Note Date/Time February 28, 2022 7:06pm [facility] [address] [place] [address] Cardiology Consult Note Signed Patient: Mary Aburto MR#: [id number] : 1960 Acct:[id number] Age/Sex: 62 / M Adm Date: 2 Loc: Room: [address] [place] [address] Type : ADM IN Attending Dr: Antwon Hastings MD Copies to: MD Boo Tran MD W Scott Sheldon, DO~ Cardiology HPI History of Present Illness Consult Date: 02/28/22 Reason for Consult: Abnormal EKG, preoperative risk assessment and clearance HPI: Mr. Aburto is a 62 year old male seen in urgent cardiology consultation at the request of Dr. Hastings and anesthesia for preoperative risk assessment and clearance due to abnormal ECG. Patient is seen independently but in conjunctionwith fourth-year medical student Dr. Werner. We have reviewed his ECG, examined the patient, reviewed the echocardiogram and have interviewed and examined the patient. I concur with his evaluation and management. Patient presented to the ED complaining of neck pain with associated right arm weakness, numbness, and tingling. Pt has a PMHx of CAD, MO, HLD, HTN. He had been following up with neurosurgery, Dr. Hastings, in regards to the neck pain, whotold him that if his symptoms worsened he should go to the ED. Due to worsening weakness, Pt was admitted for potential urgent posterior cervical surgical intervention. Pt had an EKG collected in the ED which was worrisome due to ST segment changes.Pt denies any chest pain, shortness of breath, peripheral edema, nausea, vomiting, and diaphoresis. Pt states that he had a heart attack over a decade ago with cardiac arrest . This event occurred in [place], he recalls the history reasonably well, strangely, he states that he was only admitted for 4 to5 hours and discharged with no further follow-up. He denies any cardiac surgeryor stenting. He has been following up with Cardiology out of [place] and is currently prescribed Aspirin 81 mg as well as atorvastatin and metoprolol for control of his lipid level and blood pressure. Patient is a former smoker, quit2 years ago. He has had no hospitalizations for cardiopulmonary illnesses. ECG reveals sinus rhythm with early repolarization abnormality (normal variant);echocardiogram reveals normal left ventricular function with no wall motion abnormality. Clinically, and by current available ECGs, and echocardiogram, age, and comorbidities that are only noted for hypertension, and very remote acute coronary event (with no documented cardiac catheterization, intervention) patient is currently at low risk for any cardiovascular events. He is cleared for his intended procedure with major adverse cardiac event rate at approximately 0.9 to 1.8% Review of Systems Constitutional Constitutional: Denies chills, Denies excessive sweating, Denies fatigue and Denies fever(s) Cardiovascular Cardiovascular: Denies chest pain, Denies diaphoresis, Denies dyspnea and Deniesedema Respiratory Respiratory: Denies cough Gastrointestinal Gastrointestinal: Denies nausea and Denies vomiting Neurologic Neurologic: Denies confusion, Denies dizziness, Reports paresthesias (Right arm)and Reports weakness (Right arm) PMFSH Vaccinated for COVID-19?: Yes Medical History (Updated 02/28/22 @ 09:33 by CAROL Bennett) Hypertension Myocardial infarct Surgical History History of orthopedic surgery R shoulder surgery with approx 18 pins S/P cervical spinal fusion Family History Father Lung cancer Mother Diabetes Sister Cancer Sister Cancer Social History Smoking Status: Former smoker Substance Use Type: None Substance Abuse Comment: States he has had no Alcohol for last 2 months Meds Medications and Allergies Allergies Penicillins Allergy (Verified 02/28/22 09:00) Swelling Sulfa (Sulfonamide Antibiotics) Allergy (Verified 02/28/22 09:00) Swelling Home Medications aspirin 81 mg capsule 81 mg PO DAILY 02/07/22 [History Confirmed 02/28/22] atorvastatin 40 mg tablet 40 mg PO DAILY 02/07/22 [History Confirmed 02/28/22] baclofen 10 mg tablet 10 - 20 mg PO QHS 02/07/22 [History Confirmed 02/28/22] gabapentin 300 mg capsule 300 mg PO BID 02/07/22 [History Confirmed 02/28/22] ibuprofen 800 mg tablet 800 mg PO Q4-6H PRN 02/07/22 [History Confirmed 02/28/22] indomethacin 50 mg capsule 50 mg PO TID 02/07/22 [History Confirmed 02/28/22] levothyroxine 75 mcg tablet 75 mcg PO DAILY 02/07/22 [History Confirmed 02/28/22] metoprolol tartrate 25 mg tablet 25 mg PO BID 02/07/22 [History Confirmed 02/28/22] phenytoin sodium extended 100 mg capsule 300 mg PO BID 02/07/22 [History Confirmed 02/28/22] trazodone 100 mg tablet 100 mg PO QHS 02/07/22 [History Confirmed 02/28/22] dexamethasone 4 mg tablet 4 mg PO TID 02/28/22 [History Confirmed 02/28/22] oxycodone-acetaminophen 5 mg-325 mg tablet (Percocet) 1 tab PO Q4-6H PRN 02/28/22 [History Confirmed 02/28/22] Exam Physical Exam Vital Signs: Temp Pulse Resp BP Pulse Ox 98.1 F 60 20 160/101 H 98 02/28/22 14:53 02/28/22 14:53 02/28/22 14:53 02/28/22 14:53 02/28/22 14:53 Const General: cooperative and in distress mild Orientation: alert, awake and oriented x3 Eyes General: appearance normal, both eyes and all related structures Neck Neck: not normal to visual inspection, limited ROM and other (Severe musculoskeletal cervical restriction) Chest Chest palpation & inspection: normal inspection of the chest Resp Effort & Inspection: normal respiratory effort Auscultation: clear to auscultation bilaterally, no rales, no rhonchi and no wheezes Cardio Rate: regular rate Rhythm: regular rhythm Heart Sounds: S1 normal, S2 normal, no gallops, no murmurs and no rubs GI Inspection: normal to inspection Neuro General: patient alert, patient awake and patient oriented x3 Motor: strength abnormal (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) Extrem General: capillary refill normal Results Labs CBC & CMP: 02/28/22 15:07 02/28/22 15:07 Lab results: Cardiac Enzymes 02/28/22 Range/Units 09:50 AST 14 (10-42) U/L CBC 02/28/22 Range/Units 09:50 RBC 4.47 (3.90-5.60) x10E6/uL Hgb 15.1 (13.0-17.0) g/dL Hct 44.1 (38.8-50.0) % Plt Count 316 (150-450) x10E3/uL Neut # (Auto) 10.8 H (1.8-7.7) x10E3/uL Lymph # (Auto) 1.2 (1.00-4.8) x10E3/uL [place] # (Auto) 1.0 H (0.0-0.8) x10E3/uL Eos # (Auto) 0.0 (0.0-0.45) x10E3/uL Baso # (Auto) 0.1 (0.0-0.2) x10E3/uL Comprehensive Metabolic Panel 02/28/22 02/28/22 Range/Units 09:50 15:07 Sodium 133 L 133 L (136-146) mmol/L Potassium 4.1 3.9 (3.5-5.1) mmol/L Chloride 100 97 (95-114) mmol/L Carbon Dioxide 23.7 24.7 (22.0-30.0) mmol/L BUN 13 13 (9-23) mg/dL Creatinine 0.97 1.00 (0.64-1.27) mg/dL Glucose 123 H 130 H (70-100) mg/dL Calcium 9.0 9.0 (8.2-10.2) mg/dL AST 14 (10-42) U/L ALT 25 (10-60) U/L Alkaline Phosphatase 67 (32-92) U/L Total Protein 6.2 (6.1-7.9) gm/dL Albumin 3.5 (3.2-5.5) gm/dL Intake and Output 02/27/22 02/28/22 02/28/22 23:59 07:59 15:59 Other: Weight 65.317 kg Date of Last Bowel Movement 02/27/22 Patient Weight 02/28/22 23:59 Weight 65.317 kg Lab 02/28/22 02/28/22 09:50 15:07 PT 10.0 10.0 INR 0.9 0.9 EKG Interpretations EKG EKG results cardiology: WNL (Early repolarization abnormality consistent with normal variant) and sinus rhythm A&P - Cardiology (1) Cervical disc disorder with myelopathy: Plan: Patient is cleared for his intended surgical procedure Code(s): M50.00 - Cervical disc disorder with myelopathy, unspecified cervical region (2) Right arm weakness: Code(s): R29.898 - Other symptoms and signs involving the musculoskeletal system Documented By: Lupe Hughes DO 02/28/22 1536 Signed By: <Electronically signed by Lupe Hughes DO> 02/28/22 1906 [facility] Work Phone: [phone] 552-173704-28-2022 Evaluation note* Encounter Date Diagnosis Assessment Notes Treatment Notes Treatment Clinical Notes Jan, Spondylolisthesis, cervical region (ICD-10 - M43.12) I have independently reviewed the plain x-ray of the cervical spine and the MRI of the cervical spine. The MRI of the cervical spine is in normal alignment with adequate canal diameter which is marginal but definitely no cord compression. On plain x-ray of the cervical spine the patient has 3 to 4 mm of subluxation of C3-4 and C2-3 in a flexed position which is significantly different than the MRI. This patient has an unstable cervical spine and is damaging his spinal cord. He has had the symptoms for greater than 2 months. He has pain in his right arm because of lack of motion, developing a frozen right shoulder and decreased movement of his hand overall. This gentleman has sustained a neurologic injury to his right arm and he is in need of a posterior cervical stabilization and decompression at C to C3-C4-C5 as soon as possible. This is with posterior lateral screws C2 C3-C4-C5 and posterior surgical decompression C2-C3 superior portion of C4. I reviewed all imaging face to face with the patient and his and discussed all treatment options and risks and benefits of surgery. I discussed with the patient the indication operation postop course risk and benefits of surgery which include paralysis infection nerve damage and incomplete recovery from neurologic symptoms. He fully understands and would like to proceed with surgical intervention. I will start him on some steriods while we are awaiting the prior auth from insurance Jan, Cervical spondylosis with myelopathy (ICD-10 - M47.12) [facility] Other evaluation noteNo assessment information available [facility] Work Phone: Evaluation note* Diagnosis Onset Date Resolution Status Cervical disc disorder with myelopathy acute Right arm weakness acute [facility] Work Phone: Evaluation noteNo InformationNort Distra Other evaluation note* Diagnosis Onset Date Resolution Status Spinal stenosis of cervical region with radiculopathy acute [facility] Work Phone: History general Narrative - Reported* Type Description Date Medical History thyroid disease Surgical History heart catheterization [facility] Other History general Narrative - Reported* Type Description Date Medical History thyroid disease Surgical History heart catheterization Surgical History Posterior Cervical [facility] Hospitalization History See Above [facility] Other History general Narrative - Reported* Type Description Date Medical History thyroid disease Medical History high cholesterol Surgical History heart catheterization Surgical History Posterior Cervical Fusion[facility] Hospitalization History See Above [facility] Other History general Narrative - [facility] Other History general Narrative - Reported* Type Description Date Medical History thyroid disease Medical History high cholesterol Surgical History heart catheterization Surgical History Posterior Cervical Fusion[facility] Surgical History PCD with fusion 2022 Hospitalization History See Above [facility] Other Hospital course Narrative No data available for this section [facility] Work Phone: Hospital Discharge instructions No data available for this section [facility] No data available for this section [facility] HospitalReason for visit NarrativePain Medicine Referral UpdateNortWellSpan [facility] Other Summary Purpose Family History No Family History Records Found Relationship Condition Age at Onset Recorded Date/T [place] father Malignant neoplasm of lung Unknown Not Specified Diabetes mellitus Unknown sister Malignant neoplasm Unknown Advance Directives No Advanced Directives Records Found Advance Directive Response Recorded Date/ Time Advance Directives No January 19 3:41pm Advance Directive Response Recorded Date/ Time Advance Directives No January 19 2:41pm Chief Complaint and Reason for Visit Chief Complaint neck pain Chief Complaint neck pain neck pain neck pain Chief Complaint neck pain neck pain neck pain neck pain Reason for Visit Cervical disc disord er with myelopathy Right arm weakness Chief Complaint neck pain M47.12 Reason for Visit Cervical disc disord er with myelopathy Right arm weakness Chief Complaint m47.12 Chief Complaint m47.12 m47.12 Chief Complaint m47.12 myelopathy Chief Complaint myelopathy myelopathy m47.12 Reason for Visit Spinal stenosis of c ervical region with radiculopathy Chief Complaint m43.12 M43.12 Reason for Referral Reason evaluate and treat Diagnosis 1 Cervical radiculopat hy at C8 (M54.12) Referral Organization [facility] Referring Provider First Name Antwon Referring Provider Last Name Venkata Referring Provider Specialty Neurologica l Surgery Referred Organization [facility] Referred Provider Damián Estrada [place]erred Address [address] [place] [place], [place],[address] Referred Provider Specialty Pain Medicin e Referral Priority Routine Reason EMG/NCV RUE Diagnosis 1 Ulnar neuropathy of right upper extremity (G56.21) Referral Organization [facility] Referring Provider First Name Antwon Referring Provider Last Name Venkata Referring Provider Specialty Neurologica l Surgery Referred Organization [facility] Referred Provider Davis Cardoso Referred Address [address] [place],[address] Referred Provider Specialty Neurology Referral Priority Routine Additional Source Comments (unrecognized sect ion and content) No Status Records FoundNo Status Records FoundNo Status Records FoundNo Status Records FoundNo Status Records FoundNo Status Records Found INFORMATION SOURCE (unrecogn ized section and content) DATE CREATED AUTHOR 02/03/2019 [facility] DATE CREATED AUTHOR AUTHOR'S ORGANIZ ATION 02/08/2023 [facility] DATE CREATED AUTHOR AUTHOR'S ORGANIZ ATION 02/21/2023 [facility] DATE CREATED AUTHOR AUTHOR'S ORGANIZ ATION 04/23/2023 [facility] DATE CREATED AUTHOR AUTHOR'S ORGANIZ ATION 08/23/2023 [facility] DATE CREATED AUTHOR AUTHOR'S ORGANIZ ATION 11/29/2023 [facility] Care Teams (unrecognized sec tion and content) Team Status: Inactive Member Role Status Park Quintanilla MD Primary Care Provider, Attending Pr ladi Active Team Status: Active Member Role Status Park Quintanilla MD Primary Care Provider Active Team Status: Inactive Member Role Status Dates Temporary Anesthesiologist Attending Provider Active Boo Quintanilla MD Primary Care Provider, Referring Pr ovider Active Team Status: Active Member Role Status Park Quintanilla MD Primary Care Provider Active Laura Yu [facility] Emergency Provider Active Antwon [facility] MD Admit Provider, Attending Provider A ctive Team Status: Inactive Member Role Status Park Quintanilla MD Primary Care Provide r, Attending Provider, Referring Provider Active Team Status: Inactive Member Role Status Park Quintanilla MD Primary Care Provider Active Laura Yu [facility] Emergency Provider Active Antwon [facility] MD Admit Provider, Attending Provider A ctive Team Status: Inactive Member Role Status Park Quintanilla MD Primary Care Provider Active Antwon [facility] MD Attending Provider Active Team Status: Inactive Member Role Status Park Quintanilla MD Primary Care Provider Active Antwon [facility] MD Admit Provider, Attending Provider A ctive Goals (unrecognized section and content) Goals may be documented in a n alternate sectionNo InformationNo InformationNo InformationNo InformationNo InformationNo InformationNo InformationGoals may be documented in an alternate sectionGoals may be documented in an alternate sectionNo InformationNo InformationGoals may be documented in an alternate sectionNo InformationNo InformationNo InformationNo InformationNo InformationNo InformationNo InformationNo InformationNo InformationGoals may be documented in an alternate sectionNo InformationNo InformationNo Information No data available for this section REASON FOR VISIT (unrecogniz ed section and content) Ref by Dr. Boo Quintanilla for N suki Pain; MRI in PACSpcd C2-5updateRight hand weaknessMED REFILL2.5 months po PCD w/xray5 1/2 mo po PCD w/xrayfailed PT document and order MRIMRI resultspain medsNo InformationNo Information2 wk po/ pcd with fusion C6- 7, C7-T1/4-No InformationRX REFILLmed refill6 wk po/ pcd with fusionMed refillpo pcd with fuisonNo Information FOR RECORDS PERTAINING TO PATIENTS WHO ARE OR HAVE BEEN ENROLLED IN A CHEMICAL DEPENDENCY/SUBSTANCEABUSE PROGRAM, SOME INFORMATION MAY BE OMITTED. This clinical summary was aggregated from multiple sources. Caution should be exercised in using it in the provision of clinical care. This summary normalizes information from multiple sources, and as a consequence, information in this document may materially change the coding, format and clinical context of patient data. In addition, data may be omitted in some cases. CLINICAL DECISIONS SHOULD BE BASED ON THE PRIMARY CLINICAL RECORDS. [employer] provides no warranty or guarantee of the accuracy or completeness of information in this document.
[2023-11-30 13:39] LABS: Estimated GFR (African America >60 (>=60); Estimated GFR (Non-African Ame >60 (>=60)
--- NOTE | 2023-11-30 13:50 | MR_ITS ---
The [address] [address] Patient Name: MARY ABURTO MRN: [id number] date: 1960 Sex: M Assigned Patient Location: LAB Current Patient Location: LAB Accession/Order Number: [id number] Exam Date: 11/30/2023 14:00 Report Date: 11/30/2023 16:09 At the request of: NIKUNJ HOFFMAN Procedure: MR cervical spine wo/w con EXAM: MR cervical spine wo/w con REASON FOR EXAM: cervical pain. TECHNIQUE: Multiplanar, multisequence imaging of the cervical spine was performed before and after the uneventful intravenous administration of gadolinium contrast COMPARISON: Radiographs 10/25/2023. FINDINGS: Study mildly dated by motion as well as susceptibility artifact from prior fusion. Limited evaluation the posterior fossa is unremarkable. The visualized spinal cord demonstrates normal caliber and signal. Unchanged alignment of the cervical spine. There are surgical changes from C4-C7 ACDF. There are surgical changes from C2-T2 posterior fusion. The bone marrow signal is without fracture or osteonecrosis. No abnormal osseous or soft tissue enhancement identified. Limited evaluation of the paravertebral soft tissues is unremarkable. C2-C3: No focal disc herniation identified. No severe spinal canal or neural foraminal stenosis. C3-C4: Mild broad-based disc bulge without significant spinal canal stenosis. Mild to moderate bilateral neural foraminal stenosis secondary to uncovertebral degeneration facet arthropathy. C4-C5: Posterior disc osteophyte complex results in [id number] spinal canal stenosis. Moderate bilateral neural foraminal stenosis. C5-C6: No spinal canal stenosis. Moderate bilateral neural foraminal stenosis. C6-C7: No spinal canal stenosis. Mild to moderate bilateral neural foraminal stenosis, right greater than left. C7-T1: No spinal canal stenosis. Moderate to severe bilateral neural foraminal stenosis, left greater than right secondary to disc osteophyte complex and facet arthropathy. MR/MR cervical spine wo/w con IMPRESSION: 1. Extensive postsurgical changes involving the cervical spine as described above. 2. No acute fracture or malalignment. 3. Moderate spinal canal stenosis at the C4-C5 level. No MRI evidence of severe spinal canal stenosis. Mild to moderate bilateral neural foraminal stenosis throughout the cervical spine. Electronically authenticated by: NATHALIE ODELL Date: 11/30/2023 16:09
== END 2023-11-30 13:17 | disposition home or self-care (01) ==
LOC: LAB 13:17
PROVIDERS: PCP Family Medicine; Visit Provider Anesthesiology
DX: M54.12 Radiculopathy, cervical region (principal)
CPT/HCPCS: 36415; 72156; 82565; A9575

== ENCOUNTER 2024-04-24 07:24 | Outpatient (OUT) | payer OTHER, SELFPAY ==
--- OUTSIDE RECORDS SUMMARY | 2024-04-24 07:27 | XMS_ITS | CCD ---
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 Rigo Hughes Attending Unava ilable DR ANTWON HASTINGS Admitting Unavailable DR ANTWON HASTINGS Attending Unavailable JANE ., DR HADDAD Primary Care Unavailable THAIS, DR SAMANTA Millan Consulting Unavailable DR ANTWON HASTINGS Consulting Unavailable BRANDONY ., DR HADDAD Admitting Unavailable HOY ., [...] Unavailable HOY ., DR HADDAD Consulting Unavailable HENDRIX, DR SAMANTA Millan Consulting Unavailable HOY ., DR HADDAD Admitting Unavailable HOY ., DR HADDAD Attending Unavailable HOY ., DR HADDAD Primary Care Unavailable HOY ., DR HADDAD Primary Care Unavailable MONTSERRAT ., JOHANN Admitting Unavailable MONTSERRAT ., JOHANN Attending Unavailable JOHNY COLLAZO Consulting Unavailable AARON MORA Consulting Unavailable MONTSERRAT [...] Unavailable HAY ., DR PIERCE Consulting Unavailable JEAN PIERRE, JOHNY Consulting Unavailable MOIZ BROWNING Consulting Unavailable SAMANTA JENNINGS Unavailable MD Yury Quintanilla Primary Care Provider [phone] MD Antwon Hastings Attending Provider [phone] MD Antwon Hastings Admit Provider MD Yury Quintanilla Primary Care Provider [phone] MD Antwon Hastings Attending Provider Yury Quintanilla Primary Care Physician [phone] KENNEDI MICHELLE Attending Unavailable Damián Estrada Attending Unavailable DO Damián Estrada Admitting UnavailYury Ramirez Referring Unavailable Damián Estrada Admitting Unavailable Damián Estrada Attending Unavailable Antwon Hastings Referring Unavailable Damián Estrada Attending Unavailable NONE, XXXX Referring Unavailable Damián Estrada Admitting Unavailable Damián Estrada Attending Unavailable Damián Estrada Referring Unavailable DO Damián Estrada Admitting UnavailMD Yury Ramirez Primary Care Provider [phone] MD Antwon Hastings Attending Provider Yury Quintanilla Primary Care Unavailable Antwon Hastings Attending Unavailable Antwon Hastings Admitting Unavailable Antwon Hastings Admitting Unavailable Yury Quintanilla Primary Care Unavailable Antwon Hastings Attending Unavailable Yury Quintanilla Primary Care Unavailable Antwon Hastings Attending Unavailable Antwon Hastings Admitting Unavailable Allergies Allergy Classification Reported Allergen(s) Allergy Type Date of Onset Reaction(s) Facility penicillAMINE (1 source) penicillAMINE Drug Allergy 04-10-20 24 [facility] Repository Penicillins (antibiotic) (1 source) Penicillins Drug Allergy 02-13-20 23 [facility] Repository Sulfonamides (antibiotic) (2 sources) Sulfonamides (Antibiotic); Translations: [sulfacetamide] Drug Allergy 02-13-20 [facility] Repository Sulfur (1 source) Sulfur Drug Allergy 04-10-20 24 [facility] Repository (3 sources) Ibuprofen; Translations: [IBUPROFEN] Drug Allergy 09-26-20 16 [facility] Repository (15 sources) Penicillins; Translations: [PENICILLINS] Drug allergy (disorder) 09-08-20 09 [facility] Repository (15 sources) Sulfonamides (Antibiotic); Translations: [SULFA (SULFONAMIDE ANTIBIOTICS)] Drug allergy (disorder) 03-18-20 13 [facility] Repository (20 sources) penicillAMINE Drug Allergy 04-10-20 24 Unknown, Unknown Reaction [facility] (20 sources) Sulfacetamide / Sulfur Drug Allergy Unknown [facility] Other (7 sources) Penicillin; Translations: [penicillin] Drug Allergy Eruption of skin (disorder) [facility] (7 sources) Sulfonamides (Antibiotic); Translations: [sulfa drugs] Drug allergy Eruption of skin (disorder) [facility] [place] (1 source) No Known Medication Allergies; Translations: [No Known Medication Allergies] Propensity to adverse reactions (disorder) [facility] Repository (2 sources) Sulfacetamide Drug Allergy 04-10-20 Unknown Reaction [facility] (2 sources) Sulfur Drug Allergy 04-10-20 Unknown Reaction [facility] Medications Current Medications Medication Drug Class(es) Dates Sig (Normalized) Sig (Original) acetaminophen 325 mg / oxyCODONE hydrochloride 5 mg oral tablet (20 sources) Opioid Agonist Start: 10-18-2023 take 1 [...] Days Not-Taking/PRN ciprofloxacin 500 mg oral tablet (13 sources) Quinolone Antimicrobial Start: 02-14-2023 take 1 [...] Active 10 MG PO Three times daily February 14, 2023 12:00am diazePAM 10 mg [...] Status: Ordered take 2 tablets by mo [facility] once daily as needed Oxaprozin 600 MG [...] Start: 09-10-2019 take 1 capsule by mo ut twice daily Dilantin 100 mg Cap-ER 100 mg = 1 cap(s), Oral, BID Start Date: 09/10/19 Status: Ordered Phenytoin Sodium Active Prednisone (13 sources) Start: 02-14-2023 Prednisone Act sonia 1 [...] 3 days simvastatin 40 mg oral tablet (6 sources) HMG-CoA Reductase Inhibitor Start: 09-10-2019 take 1 [...] 09-10-2019 take 1 tablet by jacquie th once daily at bedtime traZODONE 100 mg Tab 100 mg = 1 tab(s), Oral, Once a day (at bedtime) Start Date: 09/10/19 Status: Ordered take 1 tablet by jacquie th every twenty-four hours traZODone HCl 150 MG 1 tablet at bedtime Orally Once a day Active Completed/Discontinued Medications Medication Drug Class(es) Dates Sig (Normalized) Sig (Original) dexamethasone 4 mg oral tablet (13 sources) Corticosteroid Start: 02-23-2022 End: 03-02-2022 take [...] 2023 4:52pm LORazepam 0.5 mg oral tablet (9 sources) Benzodiazepine Start: 03-02-2022 End: 02-12-2023 take [...] Mood disorders; Translations: [DEPRESSION UNSPECIFIED] Onset: 02-20-2023 Nonspecific chest pain (11 sources) Chest pain, unspecified; Translations: [Other chest pain] Onset: 01-21-2019 Episodic Other acquired deformities (20 sources) Spondylolisthesis; Translations: [Spondylolisthesis, cervical region] 04-10-2024 Episodic Other acquired deformities (10 sources) Spondylolisthesis, cervical region; Translations: [Acquired spondylolisthesis] Onset: 02-23-2022 Resolved: 02-23-2022 Episodic Other aftercare (2 sources) penitentiary (current) use of aspirin; Translations: [PARTNER MANAGER (CURRENT) USE OF ASPIRIN] Onset: 01-21-2019 Episodic Other aftercare (1 source) buttermaker continuous churn (current) use of anticoagulants; Translations: [PARTNER MANAGER CURRNT USE ANTICOAGULANTS] Onset: 02-20-2023 Episodic Other aftercare (1 source) Other salvage determiner (current) drug therapy; Translations: [OTH RETIREMENT CURRENT DRUG THERAPY] Onset: 02-20-2023 Episodic Other [...] Onset: 02-20-2023 Chronic Other connective tissue disease (10 sources) Muscle weakness of upper limb; Translations: [Other symptoms and signs involving the musculoskeletal system] 02-28-2022 Episodic Other connective tissue disease (3 sources) Other symptoms and signs involving the musculoskeletal system; Translations: [Other musculoskeletal symptoms referable to limbs] Episodic Other connective tissue disease (3 sources) Arthrodesis status; Translations: [Arthrodesis status] Onset: 02-20-2023 04-10-2024 Episodic Other connective tissue disease (2 sources) History of cervical spine fusion; Translations: [Arthrodesis status] 04-10-2024 Episodic Other endocrine disorders (4 sources) Testicular [...] Cervical radiculopathy; Translations: [Radiculopathy, cervical region] Onset: 02-17-2023 Episodic Unclassified (1 source) R07.89 OTHER CHEST PAIN Onset: 01-21-2019 Unclassified (1 source) R0789 OTHER CHEST PAIN Onset: 01-21-2019 Unclassified (1 source) CONTACT W/AND (SUSP) EXPOS COVID-19; Translations: [CONTACT W/AND (SUSP) EXPOS COVID-19] Onset: 04-19-2022 Unclassified (6 sources) Patient encounter status 09-10-2019 Unclassified (1 source) Spondylolisthesis, cervical region; Translations: [Spondylolisthesis, cervical region] Onset: 05-22-2023 Past or Other Problems Problem Classification Problem [...] convulsions; Translations: [UNSPECIFIED CONVULSIONS] Onset: 06-12-2022 Episodic Other lower respiratory disease (4 sources) [...] Test Name Value Interpretation Reference Range Facility XR cerv spine AP/LAT/FLX/EXT on 04-10-2024 XR cerv spine AP/LAT/FLX/EXT [facility] [place] [address] XRay Report Signed Patient: Mary Aburto MR#: [id number] : 1960 Acct:[id number] Age/Sex: 64 / M ADM Date: 04/10/24 Loc: XD Room: Type: [facility] Attending Dr: Antwon Hastings MD Copies to: Antwon Hastings MD Ordering Provider: Antwon Hastings MD Date of Service: 04/10/24 XR/XR cerv spine AP/LAT/FLX/EXT: M43.12 - Spondylolisthesis, cervical region AP with lateral neutral, flexion and extension viewscervical spine HISTORY: Follow-up cervical spine surgery. No new symptoms. COMPARISON: 08/14/2023 POSTOPERATIVE CHANGES: Posterior fusion from C2 through T2. Anterior fusion from C4 C7. No hardware failure. No malalignment. BONY ALIGNMENT: Stable HYPERMOBILITY::No hypermobility LISTHESIS:None FRACTURE: None DISC DEGENERATION: Similar C3-4 degeneration. FACETS: Unremarkable FORAMEN: Unremarkable. DENS: Intact CRANIOCERVICAL JUNCTION: Unremarkable SOFT TISSUES: Unremarkable XR/XR cerv spine AP/LAT/FLX/EXT IMPRESSION: Stable degenerative and postsurgical changes. No hardware failure. No hypermobility. Impression dictated by: Nguyễn Patel M.D.04/10/2024 9:13 AM Dictation Location: [place] [address] Transcribed By: [facility] 04/10/24912 Dictated By: Nguyễn Patel DO 04/10/24 0911 Signed By: 04/10/24 09 Normal [facility] Office/Clinic Note-Physician on 04-03-2024 Office/Clinic Note-Physician [id number]#1.00TIFF Normal [facility] Office/Clinic Note-Nurseon 0 04-01-2024 Office/Clinic Note-Nurse [id number]#1.00TIFF Normal [facility] Consent for Treatmenton Consent for Treatment [id number]#1.00TIFF Normal [facility] Consultation Noteon 02-28-20 Consultation Note Patient is presentin g as a follow-up visit after T2/3 interlaminar epidural steroid injection on 01/23/2024 for cervical epidural coverage. He received 90% relief ongoing. He rates his pain as a 5/10 and feels that he is significantly better and able to raise his arms above his head and participate in a significant number of activities of daily living that he was able to in the past. Overall he is very happy with these results. He has no new acute complaints at this time. We did review his lumbar spine MRI imaging and discussed that he has moderate central canal stenosis at C5/6. RANDI Score: 42% PHQ-2: 2 Patient denies any symptoms of progressively worsening upper/lower extremity weakness, progressively worsening gait abnormality, new onset bowel/bladder incontinence/ urinary retention, or saddle anesthesia. No new or worsening symptoms of fever, chills, night sweats. 14 Point Review of systems negative unless otherwise noted. General: No acute distress. Patient appears well-nourished. HEENT: Head is normocephalic and external ears are normal in appearance. Cardiovascular: No signs of poor perfusion and no peripheral edema Pulmonary: Nonlabored breathing, symmetric chest movement. GI: Abdomen nondistended Integumentary: No lesions Musculoskeletal: Nontender to palpation over the paraspinal muscles, facets, and sacroiliac joints. Neurologic: Alert, oriented x3. 5/5 strength grossly in the bilateral upper extremities. Slightly diminished sensation in C5 and 6 dermatomes bilaterally. 5/5 strength grossly in the bilateral lower extremities. Special Testing: Negative Logan sign bilaterally, Spurling's reproduce mild radicular symptoms on the right only. History, physical examination, and personal review of pertinent imaging results indicate a diagnosis of: -Cervical stenosis and cervical radiculopathy -Cervical postlaminectomy pain syndrome Plan: - we had a lengthy discussion about his current symptoms it appears that he is significantly better after this epidural steroid injection we discussed to repeat these on an as-needed basis, based on a safety perspective and review of imaging we discussed that we would repeat these again at T2/3 to achieve cervical epidural spread -Will plan to follow-up again in 6 months or sooner if needed Patient was counseled on the above diagnosis and treatment, all questions were answered and patient agrees to adhere to the plan above. Risk and benefits of appropriate procedures and medications were reviewed as well with patient, who voiced understanding and agreeance. Patient was counseled on appropriate use of opioids if prescribed or renewed today and naloxone was offered to patient if opioids were prescribed or maintained at this visit. PHQ-2 scoring reviewed with patient and discussed seeking treatment for depression or mood disorder as appropriate. Patient was counseled on smoking cessation and/or [...] with any questions or concerns that arise. [facility] Comment on above: Result Comment: Elec tronically Signed By: Damián Estrada DO.manosor\Date and Time Signed: 02/28/24 16:01 EDT Office/Clinic Note-Physician on 02-28-2024 Office/Clinic Note-Physician [id number]#1.00TIFF [facility] Patient Correspondenceon Patient Correspondence [id number]#1.00TIFF Normal [facility] Patient Correspondence [id number]#1.00TIFF Normal [facility] Patient History Officeon Patient History Office [id number]#1.00TIFF Normal [facility] Consent for Treatmenton 0 Consent for Treatment [id number]#1.00TIFF Normal [facility] Consent for Procedure/Surger yon 01-23-2024 Consent for Procedure/Surgery [id number]#1.00TIFF Normal [facility] Consent for Treatmenton 12-28 Consent for Treatment [id number]#1.00TIFF Normal [facility] Discharge Instructionson Discharge Instructions [id number]#1.00TIFF Normal [facility] IntraOperative Documentson 0 01-23-2024 IntraOperative Documents [id number]#1.00TIFF Normal [facility] IntraOperative Documents [id number]#1.00TIFF Normal [facility] IntraOperative Documents [id number]#1.00TIFF [facility] Main OR Intraoperative Recor don 01-23-2024 Main OR Intraoperative Record IntraOp Document Type FTPM Summary Primary Physician: Damián Estrada DO Finalized Date/Time: 01/23/24 15:08:46 Pt. Name: MARY ABURTO/Sex: 1960 Male Med Rec #: [id number] Physician: Damián Estrada DO Financial #: [id number] Pt. Type: P Room/Bed: / Admit/Disch: 01/23/24 14:25:44 - Institution: Case Times FTPM Entry 1 Patient Times In Room 01/23/24 14:54:00 Out Room 01/23/24 15:09:00 Procedure Times Start 01/23/24 14:57:00 Stop 01/23/24 15:08:00 Anesthesia Times Last Modified By: Ernestine Henson RN 01/23/24 15:08:42 Case Attendance FTPM Entry 1 Entry 2 Entry 3 Case Attendee Dmaián Estrada DO, RN, Ernestine Sue RN, Pricilla Adamson Role Performed Surgeon - Primary Rail Maintenance Worker - Primary Scrub - Primary Time In 01/23/24 14:54:00 01/23/24 14:54:00 01/23/24 14:54:00 Time Out 01/23/24 15:09:00 01/23/24 15:09:00 01/23/24 15:09:00 Procedure INTERLAMINAR EPIDURAL INTERLAMINAR EPIDURAL INTERLAMINAR EPIDURAL STEROID INJECTION(.) STEROID INJECTION(.) STEROID INJECTION(.) Comments Last Modified By: Sixto POLK, Ernestine Henson RN, Ernestine Hightower RN 01/23/24 15:08:43 01/23/24 15:08:43 01/23/24 15:08:43 Entry 4 Case Attendee Jordana Joe (R) Role Performed Hog Tender Time In 01/23/24 14:54:00 Time Out 01/23/24 15:09:00 Procedure INTERLAMINAR EPIDURAL STEROID INJECTION(.) Comments Last Modified By: Ernestine Henson RN 01/23/24 15:08:43 Perioperative Protocols FTPM Pre-Care Text: Implements protective measures prior to operative or invasive procedure, confirms identity before the operative or invasive procedure, verifies operative procedure, surgical site, and laterality Entry 1 Procedure(s) INTERLAMINAR EPIDURAL Patient Identity Birthday, ID Band STEROID INJECTION(.) Verified (select at Check, Patient least 2): Participation Consents / H and P HandP, Surgery/Procedure Operative Site Present Verified Consent Marking Verified Surgical Site Yes Laterality Verified Yes Verified Procedure Verified Yes Correct Patient Yes Position Verified Availability Equipment, Medication, Prep Dry Yes Verified (If X-ray Applicable) PreOp Antibiotic No Time Out Ernestine Henson RN, Given Christian Sue RN, Sean Jefferson DO, Bradford A., Christman RT(R), Jordana Time Out Complete 01/23/24 14:54:00 Outcomes Met? Yes Last Modified By: Ernestine Henson RN 01/23/24 14:56:01 Post-Care Text: The patient is free from signs and symptoms of injury caused by extraneous objects Allergy Information FTPM Pre-Care Text: Verifies allergies Entry 1 Allergies Reviewed? Yes Allergies Reviewed Self/Patient With Outcomes Met? Yes Last Modified By: Ernestine Henson RN 01/23/24 14:56:13 Post-Care Text: The patient received appropriate medication(s) safely administered during the perioperative period Surgical Procedures FTPM Entry 1 Procedure Description Procedure INTERLAMINAR EPIDURAL Modifiers . STEROID INJECTION Surgeon Description T1/2 INTERLAMINAR RUBENS Primary Procedure Yes Primary Surgeon Damián Estrada DO Start 01/23/24 14:57:00 Stop 01/23/24 15:08:00 Anesthesia Type None Surgical Service Pain Management Wound Class 1 - Clean Last Modified By: Ernestine Henson RN 01/23/24 15:08:44 General Case Data FTPM Pre-Care Text: Classifies surgical wound, implements aseptic technique, initiates traffic control Entry 1 Case Information OR Pain Proc Room Case Level Level 2 Wound Class 1 - Clean Specialty Pain Management Preop Diagnosis M54.12 Postop Same As Preop Yes Postop Diagnosis M54.12 Outcomes Met? Yes Last Modified By: Ernestine Henson RN 01/23/24 14:56:26 Post-Care Text: The patient is free from signs and symptoms of infection Skin Assessment (Pre Procedure) FTPM Pre-Care Text: Implements protective measures to prevent skin/ tissue injury due to thermal or mechanical sources Evaluates for signs and symptoms of physical injury to skin and tissue Entry 1 Skin Integrity Intact, [place], Warm, and Skin Abnormality No Dry Outcomes Met? Yes Last Modified By: Ernestine Henson RN 01/23/24 14:56:34 Post-Care Text: The patient is free from signs and symptoms of injury caused by extraneous objects Patient Positioning FTPM Pre-Care Text: Identifies physical alterations that require additional precautions for procedure-specific positioning, verifies presence of prosthetics or corrective devices, positions the patient, evaluates the patient for signs and symptoms of injury as a result of positioning Entry 1 Procedure INTERLAMINAR EPIDURAL Body Position Prone STEROID INJECTION(.) Feet Uncrossed? Yes Left Arm Position Resting at Side Right Arm Position Resting at Side Left Leg Position Extended Right Leg Position Extended Positioning Device Pillow Under Head Large, Safety Strap, Pillow Large Under Knees Press Points Checked Yes By R (more content not included)... Normal [facility] Main OR Preoperative Recordo n 01-23-2024 Main OR Preoperative Record Holding Area Document Type FTPM Summary Primary Physician: Damián Estrada DO Finalized Date/Time: 01/23/24 14:30:44 Pt. Name: MARY ABURTO./Sex: 1960 Male Med Rec #: [id number] Physician: Damián Estrada DO Financial #: [id number] Pt. Type: P Room/Bed: / Admit/Disch: 01/23/24 14:25:44 - Institution: Case Times Holding FTPM Pre-Care Text: Verifies consent for planned procedure, identifies individual values and wishes concerning care, includes family members in perioperative teaching Secures patient's records' belongings, and valuables, maintains patient's dignity and privacy, and maintains patient confidentiality Entry 1 In Holding 01/23/24 14:29:00 Outcomes Met? Yes Last Modified By: Sayra Maurice RN 01/23/24 14:29:03 Post-Care Text: The patient participates in decisions affecting his or her perioperative plan of care The patient's right to privacy is maintained Surgery Checklist FTPM Entry 1 Patient Birthday, ID Band Procedure History and Physical, Identification: Check, Patient Verification: Surgical Consent, With Participation Patient NPO after Midnight: No Date/Time: 01/23/24 14:29:00 Results Reviewed coffee Personal Items: Dentures, Glasses Comments: Personal Items x1 rings, upper denture Complaints of Pain: Yes Comment: Pain Comment: 06/07 mid back pain Operative Site Yes Marking: Marked By: Dr Estrada Location: T1/2 RUBENS Availability Equipment, X-Ray Verified: Does Patient Smoke No Patient states Yes Comment - Adult -ehlio postop adult Supervision supervision available Case Cancelled in No Holding Area see comments below for reason Last Modified By: Sayra Maurice RN 01/23/24 14:30:38 Finalized By: Sayra Maurice RN Document Signatures Signed By: Sayra Maurice RN 01/23/24 14:30 [facility] Patient Correspondenceon Patient Correspondence [id number]#1.00TIFF [facility] Office/Clinic Note-Physician on 12-21-2023 Office/Clinic Note-Physician [id number]#1.00TIF F [facility] Office Visiton 12-20-2023 Follow-up visit [id number] Mary Aburto 1960 [facility] Provider Department [place] 12/20/2023 KENNEDI PEREZ FADY [facility] Family History Problem Relation Age of Onset Diabetes Mother Lung cancer Father Lung cancer Sister Family Status - Relation Status Age at Mother Father Sister Level of Service:62742 [facility] OFFICE/OUTPATIENT ESTABLISHED MOD MDM 30 MIN Reason for Visit and Comments: Coronary Artery Disease [187] Hypertension [253939] Hyperlipidemia [182] Normal [facility] Orders Onlyon 12-20-2023 Orders Only [id number] Mary Aburto 1960 [facility] Provider Department [place] 12/20/2023 BLAISE MEDRANO FADY Leija Family History Problem Relation Age of Onset Diabetes Mother Lung cancer Father Lung cancer Sister Family Status - Relation Status Age at Mother Father Sister Normal [facility] Consent for Treatmenton Consent for Treatment [id number]#1.00TIFF [facility] Consultation Noteon 12-06-19 Consultation Note Patient is presentin with complaints of neck pain that he rates as a 10/10 radiating to his bilateral upper extremities. He has had extensive spinal surgery in the past fused from C4-C7 he had an updated cervical spine MRI most recently that showed moderate central canal stenosis at C4-5. We discussed his multilevel foraminal stenosis as well as symptoms at this time. His pain is significant and severe and he is currently taking gabapentin as well as oxycodone and has not had as significant relief as he had in the past. He would like to know if we can do anything else for his neck pain at this time. He has done a full course of physical therapy to the best of his ability and states that he was unable to continue with physical therapy as it did intensify his pain. Other conservative measures have not been significantly effective and you like to know what else can be done for his pain at this time. RANDI Score: 66% PHQ-2: 2 Patient denies any symptoms of progressively worsening upper/lower extremity weakness, progressively worsening gait abnormality, new onset bowel/bladder incontinence/ urinary retention, or saddle anesthesia. No new or worsening symptoms of fever, chills, night sweats. 14 Point Review of systems negative unless otherwise noted. General: No acute distress. Patient appears well-nourished. HEENT: Head is normocephalic and external ears are normal in appearance. Cardiovascular: No signs of poor perfusion and no peripheral edema Pulmonary: Nonlabored breathing, symmetric chest movement. GI: Abdomen nondistended Integumentary: No lesions Musculoskeletal: Tender to palpation cervical paraspinal musculature. Neurologic: Alert, oriented x3. 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 5/5 strength grossly in the bilateral lower extremities. Special Testing: Negative Logan sign bilaterally. History, physical examination, and personal review of pertinent imaging results indicate a diagnosis of: -Cervical radiculopathy -Cervical postlaminectomy pain syndrome Plan: -Will schedule the patient for a T1/2 interlaminar epidural steroid injection we did review his imaging as well from his recent cervical spine MRI -Follow-up 1 month postinjection or sooner if any issues arise Patient was counseled on the above diagnosis and treatment, all questions were answered and patient agrees to adhere to the plan above. Risk and benefits of appropriate procedures and medications were reviewed as well with patient, who voiced understanding and agreeance. Patient was counseled on appropriate use of opioids if prescribed or renewed today and naloxone was offered to patient if opioids were prescribed or maintained at this visit. Patient was counseled on smoking cessation and/or [...] with any questions or concerns that arise. [facility] Comment on above: Result Comment: Elec tronically Signed By: Damián Estrada DO.br\Date and Time Signed: 12/06/23 10:46 EST Legal Correspondence Officeo n 12-06-2023 Legal Correspondence Office [id number]#1.00TIFF [facility] Office/Clinic Note-Nurseon 0 12-06-2023 Office/Clinic Note-Nurse [id number]#1.00TIFF [facility] Office/Clinic Note-Physician on 12-06-2023 Office/Clinic Note-Physician [id number]#1.00TIFF [facility] Patient Correspondenceon Patient Correspondence [id number]#1.00TIFF [facility] Patient Correspondence [id number]#1.00TIFF [facility] Patient Correspondence [id number]#1.00TIFF [facility] Patient Correspondence [id number]#1.00TIFF [facility] Patient History Officeon Patient History Office [id number]#1.00TIFF [facility] Radiology Outside Office Transportation Assistant yon 12-04-2023 Radiology Outside Office Copy [id number]#1.00TIFF Normal [facility] Physician Orderon 11-28-2023 Physician Order [id number]#1.00TIF F Normal [facility] Physician Orderon 11-20-2023 Physician Order [id number]#1.00TIFF Normal [facility] Radiology Outside Office Transportation Assistant yon 11-13-2023 Radiology Outside Office Copy [id number]#1.00TIFF Normal [facility] Consent for Treatmenton 09-29 Consent for Treatment [id number]#1.00TIFF Normal [facility] Consultation Noteon 10-18-20 Consultation Note Patient: [...] lung Father Sister Procedure history: Cardiac catheter ([id number]) on 01/21/2019 at 58 Years. Comments: 09/10/2019 12:[address] [facility] ([id number]). Cervical laminectomy ([id number]). 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 5/5 strength grossly [...] joints. P (more content not included)... Normal [facility] Comment on above: Result Comment: Elec tronically Signed By: Damián Estrada DO\.br\Date and Time Signed: 10/18/23 15:50 EST HIPAA Forms Officeon 023 HIPAA Forms Office [id number]#1.00TIFF [facility] Insurance Correspondenceon 1 12-19-2022 Insurance Correspondence [id number]#1.00TIFF [facility] Insurance Correspondence [id number]#1.00TIFF Normal [facility] Legal Correspondence Officeo n 10-18-2023 Legal Correspondence Office [id number]#1.00TIFF Normal [facility] Legal Correspondence Office [id number]#1.00TIFF Normal [facility] Office/Clinic Note-Physician on 10-18-2023 Office/Clinic Note-Physician [id number]#1.00TIFF Normal [facility] Outside Records Officeon Outside Records Office [id number]#2.00TIFF Normal [facility] Patient Correspondenceon Patient Correspondence [id number]#1.00TIFF Normal [facility] Patient Correspondence [id number]#1.00TIFF Normal [facility] Patient Correspondence [id number]#1.00TIFF Normal [facility] Patient Correspondence [id number]#1.00TIFF Normal [facility] Patient Correspondence [id number]#1.00TIFF Normal [facility] Patient History Officeon Patient History Office [id number]#1.00TIFF Normal [facility] Patient History Office [id number]#1.00TIFF Normal [facility] Physician Orderon 10-18-2023 Physician Order [id number]#1.00TIFF Normal [facility] Radiology Outside Office Transportation Assistant yon 10-18-2023 Radiology Outside Office Copy [id number]#1.00TIFF Normal [facility] Radiology Outside Office Copy [id number]#1.00TIFF Normal [facility] Radiology Outside Office Copy [id number]#1.00TIFF Normal [facility] Radiology Outside Office Copy [id number]#1.00TIFF Normal [facility] Radiology Outside Office Copy [id number]#1.00TIFF Normal [facility] Referrals Officeon 3 Referrals Office [id number]#1.00TIFF Normal [facility] XR cerv spine AP/LAT/FLX/EXT on 08-14-2023 XR cerv spine AP/LAT/FLX/EXT [facility] [place] [address] XRay Report Signed Patient: Mary Aburto MR#: [id number] : 1960 Acct:[id number] Age/Sex: 63 / M ADM Date: 08/14/23 Loc: XD Room: Type: [facility] Attending Dr: Antwon Hastings MD Copies to: [...] Thomas Justice M.D.08/14/2023 6:49 PM Dictation Location: [facility] Transcribed By: [facility] 08/14/231848 Dictated By: Thomas Justice II, MD 08/14/231842 Signed By: 08/14/231848 Nancy [facility] XR cerv spine AP/LAT/FLX/EXT on 05-22-2023 XR cerv spine AP/LAT/FLX/EXT [facility] [place] [address] [place] [address] XRay Report Signed Patient: Mary Aburto MR#: [id number] : 1960 Acct:[id number] Age/Sex: 63 / M ADM Date: 05/22/23 Loc: XD Room: Type: [facility] Attending Dr: Antwon Hastings MD Copies to: [...] COMPLICATION. Impression dictated by: Jorge Dimas Jr., D.O.05/22/2023 3:31 PM Dictation Location: [facility] Transcribed By: [facility] 05/22/23 1531 Dictated By: Jorge Dimas Jr, 05/22/23 1530 Signed By: 05/22/23 1531 Normal [facility] 36on 04-23-2023 36 Please let him know his ECHO showed his aorta aneurysm is stable. Continue with good BP and HR control. He is due for a routine follow-up appt. Thanks! Normal [facility] Telephoneon 04-23-2023 Telephone [phone] Mary AnnMary Bandar 1960 M Date Provider Department Center 04/23/2023 FloydKENNEDI MICHELLE [facility] [address] No family history on file Normal [facility] Amphetamine Screen Ql (U)Ord ered By: Jaime Trujillo on 02-12-2023 Amphetamines Ql (U) Negative Negative [facility] Barbiturates [Presence] in U rine by Screen methodOrdered By: Jaime Trujillo on 02-12-2023 Barbiturates Screen Ql (U) Negative Negative [facility] Benzodiazepines Screen Ql (U )Ordered By: Jaime Trujillo on 02-12-2023 Benzodiazepines Ql (U) Negative Negative [facility] Benzoylecgonine [Presence] i n Urine by Screen methodOrdered By: Jaime Trujillo on 02-12-2023 Benzoylecgonine Screen Ql (U) Negative Negative [facility] Cannabinoids [Presence] in U rine by Screen methodOrdered By: Jaime Trujillo on 02-12-2023 Cannabinoids Screen Ql (U) Positive Negative [facility] Comment on above: These are unconfirme d results and should not be used for legal purposes. Drug Cut-Off Concentration: AMPH 1000 ng/mL SAMARIA 200 ng/mL ARJUN 200 ng/mL COCM 300 ng/mL OP 300 ng/mL PCP 25 ng/mL THC 20 ng/mL Opiates [Presence] in Urine by Screen methodOrdered By: Jaime Trujillo on 02-12-2023 Opiates Screen Ql (U) Positive Negative [facility] Phencyclidine Screen Ql (U)O rdered By: Jaime Trujillo on 02-12-2023 Phencyclidine Ql (U) Negative Negative [facility] Basophils Auto (Bld) [#/Vol] Ordered By: Antwon Hastings on 01-29-2023 Basophils (Bld) [#/Vol] 0.1 10*3/uL 0.0-0.2 [facility] Basophils/100 WBC Auto (Bld) Ordered By: Antwon Hastings on 01-29-2023 Basophils/100 WBC (Bld) 0.8 % . [facility] Calcium [Mass/volume] in Ser um or PlasmaOrdered By: Antwon Hastings on 01-29-2023 Calcium [Mass/Vol] 8.9 mg/dL 8.6-10.[address] [facility] Carbon dioxide, total [Moles /volume] in Serum or PlasmaOrdered By: Antwon Hastings on 01-29-2023 CO2 [Moles/Vol] 27.7 mmol/L 21.0-31.0 [facility] Chloride [Moles/volume] in S serena or PlasmaOrdered By: Antwon Hastings on 01-29-2023 Chloride [Moles/Vol] 105 mmol/L 98-107 [facility] Creatinine [Mass/volume] in Serum or PlasmaOrdered By: Antwon Hastings on 01-29-2023 Creatinine [Mass/Vol] 0.92 mg/dL 0.70-1.30 [facility] Eosinophils Auto (Bld) [#/Vo l]Ordered By: Antwon Hastings on 01-29-2023 Eosinophils (Bld) [#/Vol] 0.2 10*3/uL 0.0-0.45 [facility] Eosinophils/100 WBC Auto (Bl d)Ordered By: Antwon Hastings on 01-29-2023 Eosinophils/100 WBC (Bld) 2.8 % . [facility] Erythrocyte distribution wid th Auto (RBC) [Ratio]Ordered By: Antwon Hastings on 01-29-2023 Erythrocyte distribution width (RBC) [Ratio] 12.8 % 12.0-14.8 [facility] Glucose [Mass/volume] in Ser um or PlasmaOrdered By: Antwon Hastings on 01-29-2023 Glucose [Mass/Vol] 92 mg/dL 70-[address] [facility] Comment on above: ADA recommended refe rence rangeRandom Glucose Reference Range is dependent on time and content of last meal. Glucose of more than 200 mg/dL in a nonstressed, ambulatory subject supports the diagnosis of Diabetes Mellitus. Hematocrit Auto (Bld) [Volum e fraction]Ordered By: Antwon Hastings on 01-29-2023 Hematocrit (Bld) [Volume fraction] 42.1 % 38.8-50.0 [facility] Hemoglobin [Mass/volume] in BloodOrdered By: Antwon Hastings on 01-29-2023 Hemoglobin (Bld) [Mass/Vol] 14.4 g/dL 13.0-17.0 [facility] Leukocytes [#/volume] correc carlos for nucleated erythrocytes in Blood by Automated counOrdered By: Antwon Hastings on 01-29-2023 WBC corrected for nucl RBC Auto (Bld) [#/Vol] 7.4 10*3/uL 4.1-10.5 [facility] Lymphocytes Auto (Bld) [#/Vo l]Ordered By: Antwon Hastings on 01-29-2023 Lymphocytes (Bld) [#/Vol] 2.0 10*3/uL 1.00-4.8 [facility] Lymphocytes/100 WBC Auto (Bl d)Ordered By: Antwon Hastings on 01-29-2023 Lymphocytes/100 WBC (Bld) 27.3 % . [facility] MCH Auto (RBC) [Entitic mass ]Ordered By: Antwon Hastings on 01-29-2023 MCH (RBC) [Entitic mass] 34.0 pg 27.5-35.2 [facility] MCHC Auto (RBC) [Mass/Vol]Or dered By: Antwon Hastings on 01-29-2023 MCHC (RBC) [Mass/Vol] 34.1 g/dL 32.5-35.6 [facility] MCV Auto (RBC) [Entitic vol] Ordered By: Antwon Hastings on 01-29-2023 MCV (RBC) [Entitic vol] 99.8 fL 83.5-101 [facility] Monocytes Auto (Bld) [#/Vol] Ordered By: Antwon Hastings on 01-29-2023 Monocytes (Bld) [#/Vol] 0.8 10*3/uL 0.0-0.8 [facility] Monocytes/100 WBC Auto (Bld) Ordered By: Antwon Hastings on 01-29-2023 Monocytes/100 WBC (Bld) 11.1 % . [facility] Neutrophils Auto (Bld) [#/Vo l]Ordered By: Antwon Hastings on 01-29-2023 Neutrophils (Bld) [#/Vol] 4.3 10*3/uL 1.8-7.7 [facility] Neutrophils/100 WBC Auto (Bl d)Ordered By: Antwon Hastings on 01-29-2023 Neutrophils/100 WBC (Bld) 58.0 % . [facility] No Panel InformationOrdered By: Antwon Hastings on 01-29-2023 Estimated GFR (CKD-EPI) > 60.0 mL/Min [facility] Creatinine Clearance (Chem N/A [facility] Nucleated erythrocytes [Pres ence] in Blood by Automated countOrdered By: Antwon Hastings on 01-29-2023 Nucleated RBC Auto Ql (Bld) 0.2 /100{WBC} 0-0.5 [facility] Platelet mean volume Auto (B ld) [Entitic vol]Ordered By: Antwon Hastings on 01-29-2023 Platelet mean volume (Bld) [Entitic vol] 7.2 fL 6.6-10.1 [facility] Platelets Auto (Bld) [#/Vol] Ordered By: Antwon Hastings on 01-29-2023 Platelets (Bld) [#/Vol] 281 10*3/uL 150-450 [facility] Potassium [Moles/volume] in Serum or PlasmaOrdered By: Antwon Hastings on 01-29-2023 Potassium [Moles/Vol] 4.6 mmol/L 3.5-5.1 [facility] RBC Auto (Bld) [#/Vol]Ordere d By: Antwon Hastings on 01-29-2023 RBC (Bld) [#/Vol] 4.22 10*6/uL 3.90-5.60 [facility] Serum or plasma anion gap de terminationOrdered By: Antwon Hastings on 01-29-2023 Anion gap [Moles/Vol] 7.9 mmol/L 6.0-15.0 [facility] Sodium [Moles/volume] in Ser um or PlasmaOrdered By: Antwon Hastings on 01-29-2023 Sodium [Moles/Vol] 136 mmol/L 136-[address] [facility] Urea nitrogen [Mass/volume] in Serum or PlasmaOrdered By: Antwon Hastings on 01-29-2023 Urea nitrogen [Mass/Vol] 11 mg/dL 7-25 [facility] WBC Auto (Bld) [#/Vol]Ordere d By: Antwon Hastings on 01-29-2023 WBC (Bld) [#/Vol] 7.4 10*3/uL 4.1-10.[address] [facility] Creatinine (Bld) [Mass/Vol]O rdered By: Antwon Hastings on 12-25-2022 Creatinine [Mass/Vol] 1.3 mg/dL 0.6-1.3 [facility] Comment on above: ER/ESD physician is notified/shown all ISTAT results.Critical values may be confirmed by laboratory testing ifdeemed necessary by ER attending doctor. MR cervical spine wo/w conon 12-25-2022 MR cervical spine wo/w con [facility] [employer] Other MR cervical spine wo/w con [facility] Connotate [facility] [employer] Other MR cervical spine wo/w con [address] [place] [address] Connotate [facility] [employer] Other MR cervical spine wo/[place] [address] [employer] Other MR cervical spine wo/w con MRI Report [employer] Other MR cervical spine wo/w con Signed [employer] Other MR cervical spine wo/w con Patient: Mary Aburto MR#: [id number] [employer] Other MR cervical spine wo/w con : 1960 Acct:[id number] [employer] Other MR cervical spine wo/w con Age/Sex: 62 / M ADM Date: 12/25/22 [employer] Other MR cervical spine wo/w con Loc: MR Room: Type: [facility] [employer] Other MR cervical spine wo/w con Attending Dr: Antwon Hastings MD [employer] Other MR cervical spine wo/w con Copies to: Antwon Hastings MD [employer] Other MR cervical spine wo/w con Ordering Provider: Antwon Hastings MD [employer] Other MR cervical spine wo/w con Date of Service: 12/25/22 [employer] Other MR cervical spine wo/w con MR/MR cervical spine wo/w con: M47.12 [employer] Other MR cervical spine wo/w con MR cervical spine wo/w con 12/25/2022 1:56 PM [employer] Other MR cervical spine wo/w con SIGNS AND SYMPTOMS: Severe neck pain radiating down right arm with weakness, tingling, and numbness [employer] Other MR cervical spine wo/w con PROTOCOL: Multiplanar multisequence MR images of the cervical spine were obtained with and without [employer] Other MR cervical spine wo/w con IV contrast [employer] Other MR cervical spine wo/w con CONTRAST: 13 mL of intravenous ProHance [employer] Other MR cervical spine wo/w con COMPARISON: 10/23/2022 and 02/08/2022 [employer] Other MR cervical spine wo/w con FINDINGS: There is straightening and mild reversal of the normal cervical lordosis. The bones are in [employer] Other MR cervical spine wo/w con anatomic alignment otherwise. There is preservation of vertebral body heights. There is posterior [employer] Other MR cervical spine wo/w con fusion and decompression from C2 through C5. There is anterior fusion hardware from C5 through T1. [employer] Other MR cervical spine wo/w con There is no change in alignment. The marrow signal is within normal limits. The cord is normal in [employer] Other MR cervical spine wo/w con signal. No epidural or paraspinous fluid collection is appreciated. The visualized paraspinous soft [employer] Other MR cervical spine wo/w con tissues are within normal limits. The prevertebral soft tissues are within normal limits. There is [employer] Other MR cervical spine wo/w con no abnormal postcontrast enhancement. [employer] Other MR cervical spine wo/w con At C2-C3: There is a normal disc, central canal, and neural foramen. [employer] Other MR cervical spine wo/w con At C3-C4: There is a normal disc, central canal, and neural foramen. [employer] Other MR cervical spine wo/w con At C4-C5: There is facet hypertrophy with mild uncovertebral joint spurring contributing to moderate [employer] Other MR cervical spine wo/w con neural foraminal narrowing bilaterally. No spinal canal narrowing. [employer] Other MR cervical spine wo/w con At C5-C6: There is facet hypertrophy with mild uncovertebral joint spurring contributing to mild [employer] Other MR cervical spine wo/w con At C6-C7: There is facet hypertrophy with mild uncovertebral joint spurring contributing to moderate [employer] Other MR cervical spine wo/w con At C7-T1: There is a broad-based disc bulge with facet and negative joint degenerative change [employer] Other MR cervical spine wo/w con contributing to moderate to severe bilateral neural foraminal narrowing with mild spinal canal [employer] Other MR cervical spine wo/w con narrowing. [employer] Other MR cervical spine wo/w con MR/MR cervical spine wo/w con [employer] Other MR cervical spine wo/w con IMPRESSION: [employer] Other MR cervical spine wo/w con There is posterior fusion and decompression from C2 through C5. There is anterior fusion hardware [employer] Other MR cervical spine wo/w con from C5 through T1. There is no change in alignment. [employer] Other MR cervical spine wo/w con Degenerative changes contribute to neural foraminal narrowing bilaterally from C4-C5 through the C7- [employer] Other MR cervical spine wo/w con T1 levels. Neural foraminal narrowing appears to be greatest at C4-C5. [employer] Other MR cervical spine wo/w con No evidence of cord compression or cord signal abnormality. [employer] Other MR cervical spine wo/w con Impression dictated by: Thomas Justice M.D.12/25/2022 5:05 PM [employer] Other MR cervical spine wo/w con Dictation Location: [place] [address] [employer] Other MR cervical spine wo/w con Transcribed By: BETHANY 12/25/22 1705 [employer] Other MR cervical spine wo/w con Dictated By: Thomas Justice II, MD 12/25/22 [facility] [employer] Other MR cervical spine wo/w con Signed By: [employer] Other MR cervical spine wo/w con 12/25/22 1707 [employer] Other No Panel InformationOrdered By: Antwon Hastings on 12-25-2022 POC Estimated GFR > 60 [facility] Comment on above: GFR estimated refere nce range: According to KDOQI guidelines, <60 ml/min/1.73m2 is sufficient to diagnose a patient with chronic kidney disease. POC Estimated GFR Non- Amer 56 [facility] CBC AUTO DIFFon 11-13-2022 BASO # 0.0 103/ul Normal 0.0-0.1 [facility] Comment on above: Performed By: #### C BC #### [facility] [address] [address] [address] Edilson Mortensen Basophils/100 WBC (Bld) 0.4 % Normal 0.2-2.0 [facility] Comment on above: Performed By: #### C BC #### [facility] [address] [address] [address] Edilson Mortensen EO # 0.2 103/ul Normal 0.0-0.7 [facility] Comment on above: Performed By: #### C BC #### [facility] [address] [place], [place] [address] Dr. Edilson Mortensen Eosinophils/100 WBC (Bld) 2.1 % Normal 0.9-7.0 [facility] Comment on above: Performed By: #### C BC #### [facility] [address] [address] [address] Edilson Mortensen Erythrocyte distribution width (RBC) [Ratio] 13.0 % Normal 11.0-15.0 [facility] Comment on above: Performed By: #### C BC #### [facility] [address] [place] [address] Dr. Edilson Mortensen Hematocrit (Bld) [Volume fraction] 41.6 % Critically low 42.0-54.0 [facility] Comment on above: Performed By: #### C BC #### [facility] [address] [place] [address] Dr. Edilson Mortensen Hemoglobin (Bld) [Mass/Vol] 14.5 g/dL Normal 14.0-18.0 [facility] Comment on above: Performed By: #### C BC #### [facility] [address] [place] [address] Dr. Edilson Mortensen IG # 0.05 10e3/ul Critically high 0.00-0.03 [facility] Comment on above: Performed By: #### C BC #### [facility] [address] [place] [address] Dr. Edilson Mortensen IG % 0.6 % Critically high 0.0-0.5 [facility] Comment on above: Performed By: #### C BC #### [facility] [address] [place] [address] Dr. Edilson Mortensen LYMPH # 2.2 103/ul Normal 1.2-3.8 [facility] Comment on above: Performed By: #### C BC #### [facility] [address] [place] [address] Dr. Edilson Mortensen Lymphocytes/100 WBC (Bld) 23.7 % Normal 20.5-60.0 [facility] Comment on above: Performed By: #### C BC #### [facility] [address] [place] [address] Dr. Edilson Mortensen MANUAL DIFF REQ NO Normal [facility] Comment on above: Performed By: #### C BC #### [facility] [address] [place] [address] Dr. Edilson Mortensen MCH (RBC) [Entitic mass] 34.0 pg Normal 25.9-34.0 [facility] Comment on above: Performed By: #### C BC #### [facility] [address] [place] [address] Dr. Edilson Mortensen MCHC (RBC) [Mass/Vol] 34.9 g/dL Normal 29.9-35.2 [facility] Comment on above: Performed By: #### C BC #### [facility] [address] [place] [address] Dr. Edilson Mortensen MCV (RBC) [Entitic vol] 97.7 fL Critically high 80.0-94.0 [facility] Comment on above: Performed By: #### C BC #### [facility] [address] [place] [address] Dr. Edilson Mortensen MONO # 1.1 103/ul Critically high 0.3-0.8 [facility] Comment on above: Performed By: #### C BC #### [facility] [address] [address] [address] Edilson Mortensen Monocytes/100 WBC (Bld) 12.6 % Critically high 1.7-12.0 [facility] Comment on above: Performed By: #### C BC #### [facility] [address] [address] [address] Edilson Mortensen NEUT # 5.5 103/ul Normal 1.4-6.5 [facility] Comment on above: Performed By: #### C BC #### [facility] [address] [address] [address] Edilson Mortensen Neutrophils/100 WBC (Bld) 60.6 % Normal 43.0-75.0 [facility] Comment on above: Performed By: #### C BC #### [facility] [address] [place] [address] Dr. Edilson Mortensen Platelet mean volume (Bld) [Entitic vol] 8.8 fL Critically low 9.5-13.5 [facility] Comment on above: Performed By: #### C BC #### [facility] [address] [place] [address] Dr. Edilson Mortensen PLT 267 103/ul Normal 150-450 [facility] Comment on above: Performed By: #### C BC #### [facility] [address] [place] [address] Dr. Edilson Mortensen RBC 4.26 106/ul Critically low 4.70-6.10 [facility] Comment on above: Performed By: #### C BC #### [facility] [address] [place] [address] Dr. Edilson Mortensen WBC 9.1 103/ul Normal 4.0-11.0 [facility] Comment on above: Performed By: #### C BC #### [facility] [address] [place] [address] Dr. Edilson Mortensen CTA CHEST WO W [...] by: AARON MORA Date: 2022-11-13 20:14 Normal [facility] PROF CHEM 8 (BAS METB)on Anion gap [Moles/Vol] 13.9 mmol/L Normal [facility] Comment on above: Performed By: #### T HYLC #### [facility] [address] [address] [address] Edilson Mortensen Calcium [Mass/Vol] 8.6 mg/dL Normal 8.5-10.1 [facility] Comment on above: Performed By: #### T HYLC #### [facility] [address] [address] [address] Edilson Mortensen Chloride [Moles/Vol] 103 mmol/L Normal 98-107 [facility] Comment on above: Performed By: #### T HYLC #### [facility] [address] [address] [address] Edilson Mortensen CO2 [Moles/Vol] 26.8 mmol/L Normal 21.0-32.0 [facility] Comment on above: Performed By: #### T HYLC #### [facility] [address] [address] [address] Edilson Mortensen Creatinine [Mass/Vol] 1.46 mg/dL Critically high 0.70-1.30 [facility] Comment on above: Performed By: #### T HYLC #### [facility] [address] [address] [address] Edilson Mortensen EGFR-AF CITIZEN OF [place] 60 mL/min/1.73m2 Normal >=60 [facility] Comment on above: Performed By: #### T HYLC #### [facility] [address] [address] [address] Edilson Mortensen EGFR-NON AF CITIZEN [place] 49 mL/min/1.73m2 Critically low >=60 [facility] Comment on above: Performed By: #### T HYLC #### [facility] [address] [address] [address] Edilson Mortensen Glucose [Mass/Vol] 86 mg/dL Normal 74-106 [facility] Comment on above: Performed By: #### T HYLC #### [facility] [address] [address] [address] Edilson Mortensen Potassium [Moles/Vol] 3.7 mmol/L Normal 3.5-5.1 [facility] Comment on above: Performed By: #### T HYLC #### [facility] [address] [address] [address] Edilson Mortensen Sodium [Moles/Vol] 140 mmol/L Normal 136-145 [facility] Comment on above: Performed By: #### T HYLC #### [facility] [address] [address] [address] Edilson Mortensen Urea nitrogen [Mass/Vol] 12.0 mg/dL Normal 7.0-18.0 [facility] Comment on above: Performed By: #### T HYLC #### [facility] [address] [address] [address] Edilson Mortensen Urea nitrogen/Creatinine [Mass ratio] 8.2 mg/mg Normal [facility] Comment on above: Performed By: #### T HYLC #### [facility] [address] [address] [address] Edilson Mortensen PROTIMEon 11-13-2022 INR Coag (PPP) [Relative time] {INR} Normal [facility] Comment on above: Performed By: #### I SAMEER, PSASC, VITB12 #### [facility] [address] [place] [address] Dr. Edilson Mortensen INR GUIDELINES SEE BELOW Normal [facility] Comment on above: Result Comment: GERARDO RED INR: 2.0 - 3.0 CONDITIONS NOT LISTED BELOW 2.5 - 3.5 FOR PROSTHETIC HEART VALVE REPLACEMENT 2.5 - 3.5 RECURRENT THROMBOSIS Performed By: #### I SAMEER, PSASC, VITB12 #### [facility] [address] [place] [address] Dr. Edilson Mortensen PT Coag (PPP) [Time] 9.8 s Normal 9.0-11.6 [facility] Comment on above: Performed By: #### I SAMEER, PSASC, VITB12 #### [facility] [address] [place] [address] Dr. Edilson Mortensen PTTon 11-13-2022 aPTT Coag (Bld) [Time] 27.0 s Normal 22.3-36.2 [facility] Comment on above: Performed By: #### I SAMEER PSASC, VITB12 #### [facility] [address] [place] [address] Dr. Edilson Mortensen TROPONIN, HIGH SENSITIVITYon 11-13-2022 HSTROP 4.1 pg/mL Normal 4.0-76.1 [facility] Comment on above: Result Comment: CUT- OFF POINTS HAVE BEEN ESTABLISHED BASED ON THE FOURTH UNIVERSAL DEFINITIONS OF MYOCARDIAL INFARCTION. THE UPPER REFERENCE LIMIT (URL) OF TROPONIN, DEFINED THE 99TH PERCENTILE OF cTnI DISTRIBUTION IN A REFERENCE POPULATION, HAS BEEN CONFIRMED THE DECISION THRESHOLD FOR MA DIAGNOSIS. Performed By: #### T HYLC #### [facility] [address] [place] [address] Dr. Edilson Mortensen US SCROTUMon 07-14-2022 US SCROTUM EXAMINATION: US [...] SAMANTA PLASCENCIA Date: 2022-07-14 07:15 Normal [facility] TESTOSTERONE, TOTALon 2021 Testosterone [Mass/Vol] 1038 ng/dL Critically high 264-916 [facility] Comment on above: Result Comment: Adul t male reference interval is based on a population of healthy nonobese males (BMI <30) between 19 and 39 years old. My et.al. JCEM 2017,102;4596-4507. PMID: [id number]. Performed By: #### T ESTTOT #### [facility] [address] [place] [address] Dr. Edilson Mortensen INSULINon 06-10-2022 Insulin 4.7 uIU/mL Normal 2.6-24.9 [facility] Comment on above: Performed By: #### I SAMEER, PSASC, VITB12 #### [facility] [address] [address] [address] Edilson Mortensen T4, T3U, FTI LABCORPon 06-10 Free Thyroxine Index 2.3 Normal 1.2-4.9 [facility] Comment on above: Performed By: #### T HYLC #### [facility] [address] [address] [address] Edilson Mortensen T3 Uptake 29 % Normal 24-39 [facility] Comment on above: Performed By: #### T HYLC #### [facility] [address] [address] [address] Edilson Mortensen T4 [Mass/Vol] 7.9 ug/dL Normal 4.5-12.0 [facility] Comment on above: Performed By: #### T HYLC #### [facility] [address] [address] [address] Edilson Mortensen TESTOSTERONE, TOTALon 2021 Testosterone [Mass/Vol] 1062 ng/dL Critically high 264-916 [facility] Comment on above: Result Comment: Adul t male reference interval is based on a population of healthy nonobese males (BMI <30) between 19 and 39 years old. My et.al. JCEM 2017,102;0565-5755. PMID: [id number]. Performed By: #### T ESTTOT #### [facility] [address] [address] [address] Edilson Mortensen VIT D 25-OH LABCORPon 2021 Vitamin D, 25-Hydroxy 17.9 ng/mL Critically low 30.0-100.0 [facility] Comment on above: Result Comment: Isabel min D deficiency has been defined by the [place] [employer] and an Endocrine Society practice guideline as a level of serum 25-OH vitamin D less than 20 ng/mL (1,2). The Endocrine Society went on to further define vitamin D insufficiency as a level between 21 and 29 ng/mL (2). 1. IOM ([place] [employer]). 2010. Dietary reference intakes for calcium and D. [place]: The National Academies Press. 2. Gayla MF, Laura [place], Kelly BARRIOS, et al. Evaluation, treatment, and prevention of vitamin D deficiency: an Endocrine Society clinical practice guideline. JCEM. 2010; 96(7):1911-30. Performed By: #### I SAMEER, PSASC, VITB12 #### [facility] [address] [id number] Edilson Mortensen CBC AUTO DIFFon 06-09-2022 BASO # 0.0 103/ul Normal 0.0-0.1 [facility] Comment on above: Performed By: #### C BC #### [facility] [address] [id number] Edilson Mortensen Basophils/100 WBC (Bld) 0.4 % Normal 0.2-2.0 [facility] Comment on above: Performed By: #### C BC #### [facility] [address] [address] [address] Edilson Mortensen EO # 0.3 103/ul Normal 0.0-0.7 [facility] Comment on above: Performed By: #### C BC #### [facility] [address] [address] [address] Edilson Mortensen Eosinophils/100 WBC (Bld) 3.0 % Normal 0.9-7.0 [facility] Comment on above: Performed By: #### C BC #### [facility] [address] [place] [address] Dr. Edilson Mortensen Erythrocyte distribution width (RBC) [Ratio] 12.2 % Normal 11.0-15.0 [facility] Comment on above: Performed By: #### C BC #### [facility] [address] [place] [address] Dr. Edilson Mortensen Hematocrit (Bld) [Volume fraction] 46.0 % Normal 42.0-54.0 [facility] Comment on above: Performed By: #### C BC #### [facility] [address] [place] [address] Dr. Edilson Mortensen Hemoglobin (Bld) [Mass/Vol] 15.6 g/dL Normal 14.0-18.0 [facility] Comment on above: Performed By: #### C BC #### [facility] [address] [place] [address] Dr. Edilson Mortensen IG # 0.05 10e3/ul Critically high 0.00-0.03 [facility] Comment on above: Performed By: #### C BC #### [facility] [address] [place] [address] Dr. Edilson Mortensen IG % 0.5 % Normal 0.0-0.5 [facility] Comment on above: Performed By: #### C BC #### [facility] [address] [place] [address] Dr. Edilson Mortensen LYMPH # 2.6 103/ul Normal 1.2-3.8 [facility] Comment on above: Performed By: #### C BC #### [facility] [address] [place] [address] Dr. Edilson Mortensen Lymphocytes/100 WBC (Bld) 26.1 % Normal 20.5-60.0 [facility] Comment on above: Performed By: #### C BC #### [facility] [address] [place] [address] Dr. Edilson Mortensen MANUAL DIFF REQ NO Normal [facility] Comment on above: Performed By: #### C BC #### [facility] [address] [place] [address] Dr. Edilson Mortensen MCH (RBC) [Entitic mass] 33.6 pg Normal 25.9-34.0 [facility] Comment on above: Performed By: #### C BC #### [facility] [address] [place] [address] Dr. Edilson Mortensen MCHC (RBC) [Mass/Vol] 33.9 g/dL Normal 29.9-35.2 [facility] Comment on above: Performed By: #### C BC #### [facility] [address] [place] [address] Dr. Edilson Mortensen MCV (RBC) [Entitic vol] 99.1 fL Critically high 80.0-94.0 [facility] Comment on above: Performed By: #### C BC #### [facility] [address] [place] [address] Dr. Edilson Mortensen MONO # 1.2 103/ul Critically high 0.3-0.8 [facility] Comment on above: Performed By: #### C BC #### [facility] [address] [place] [address] Dr. Edilson Mortensen Monocytes/100 WBC (Bld) 12.2 % Critically high 1.7-12.0 [facility] Comment on above: Performed By: #### C BC #### [facility] [address] [place] [address] Dr. Edilson Mortensen NEUT # 5.8 103/ul Normal 1.4-6.5 [facility] Comment on above: Performed By: #### C BC #### [facility] [address] [place] [address] Dr. Edilson Mortensen Neutrophils/100 WBC (Bld) 57.8 % Normal 43.0-75.0 [facility] Comment on above: Performed By: #### C BC #### [facility] [address] [place] [address] Dr. Edilson Mortensen Platelet mean volume (Bld) [Entitic vol] 8.3 fL Critically low 9.5-13.5 [facility] Comment on above: Performed By: #### C BC #### [facility] [address] [place] [address] Dr. Edilson Mortensen PLT 272 103/ul Normal 150-450 [facility] Comment on above: Performed By: #### C BC #### [facility] [address] [place] [address] Dr. Edilson Mortensen RBC 4.64 106/ul Critically low 4.70-6.10 [facility] Comment on above: Performed By: #### C BC #### [facility] [address] [place] [address] Dr. Edilson Mortensen WBC 10.0 103/ul Normal 4.0-11.0 [facility] Comment on above: Performed By: #### C BC #### [facility] [address] [place] [address] Dr. Edilson Mortensen DILANTINon 06-09-2022 Phenytoin [Mass/Vol] 14.6 ug/mL Normal 10.0-20.0 [facility] Comment on above: Performed By: #### I IRENA ESTRELLA, VITB12 #### [facility] [address] [place] [address] Dr. Edilson Mortensen GLYCOHEMOGLOBIN A1Con 2021 ADA RECOMMENDATION SEE BELOW Normal [facility] Comment on above: Result Comment: ADA RECOMMENDED LIMIT 4.0 - 6.0 ADA THERAPEUTIC TARGET < 7.0 ACTION SUGGESTED > 7.0 Performed By: #### I MARGE ESTRELLASC, VITB12 #### [facility] [address] [place] [address] Dr. Edilson Mortensen Glucose [Mass/Vol] 108 mg/dL Normal [facility] Comment on above: Performed By: #### I MARGE ESTRELLASC, VITB12 #### [facility] [address] [place] [address] Dr. Edilson Mortensen HbA1c (Bld) [Mass fraction] 5.4 % Normal 4.5-6.2 [facility] Comment on above: Performed By: #### I SAMEER PSASC, VITB12 #### [facility] [address] [place] [address] Dr. Edilson Mortensen IRONon 06-09-2022 Iron [Mass/Vol] 109.0 ug/dL Normal 65.0-175.0 [facility] Comment on above: Performed By: #### I MARGE ESTRELLASC, VITB12 #### [facility] [address] [place] [address] Dr. Edilson Mortensen LIPID PROFILEon 06-09-2022 CHOL-HDL RATIO NORM SEE BELOW Normal [facility] Comment on above: Result Comment: 3.3 - 4.4 LOW RISK 4.4 - 7.1 AVERAGE RISK 7.1 - 11.0 MODERATE RISK >11.0 HIGH RISK Performed By: #### I SAMEER PSASC, VITB12 #### [facility] [address] [place] [address] Dr. Edilson Mortensen Cholesterol [Mass/Vol] 153 mg/dL Normal <=200 [facility] Comment on above: Performed By: #### I MARGE ESTRELLASC, VITB12 #### [facility] [address] [place] [address] Dr. Edilson Mortensen Cholesterol in HDL [Mass/Vol] 56 mg/dL Normal 40-60 [facility] Comment on above: Performed By: #### I SAMEER PSASC, VITB12 #### [facility] [address] [place] [address] Dr. Edilson Mortensen Cholesterol in LDL [Mass/Vol] 75.0 mg/dL Normal [facility] Comment on above: Performed By: #### I SAMEER PSASC, VITB12 #### [facility] [address] [place] [address] Dr. Edilson Mortensen Cholesterol.total/Chol esterol in HDL [Mass ratio] 2.7 {ratio} Normal [facility] Comment on above: Performed By: #### I IRENA ESTRELLA, VITB12 #### [facility] [address] [address] [address] Edilson Mortensen HDL NORMAL > or = 60 mg/dl - LO W CARDIOVASCULAR RISK <40 mg/dl - HIGH CARDIOVASCULAR RISK Normal [facility] Comment on above: Performed By: #### I MARGE ESTRELLASC, VITB12 #### [facility] [address] [address] [address] Edilson Mortensen LDL CALC NORMAL SEE BELOW Normal [facility] Comment on above: Result Comment: <100 mg/dl OPTIMAL 100 - 129 mg/dl NEAR OR ABOVE OPTIMAL 130 - 159 mg/dl BORDERLINE HIGH 160 - 189 mg/dl HIGH >190 mg/dl VERY HIGH Performed By: #### I IRENA ESTRELLA, VITB12 #### [facility] [address] [place] [address] Dr. Edilson Mortensen Triglyceride [Mass/Vol] 110 mg/dL Normal <=150 [facility] Comment on above: Performed By: #### I IRENA ESTRELLA, VITB12 #### [facility] [address] [place] [address] Dr. Edilson Mortensen VLDL CALC 22.0 mg/dL Normal [facility] Comment on above: Performed By: #### I IRENA ESTRELLA, VITB12 #### [facility] [address] [place] [address] Dr. Edilson Mortensen PROF 14(COMP METB)on 022 Albumin [Mass/Vol] 3.6 g/dL Normal 3.4-5.0 [facility] Comment on above: Performed By: #### I MARGE ESTRELLASC, VITB12 #### [facility] [address] [place] [address] Dr. Edilson Mortensen Albumin/Globulin [Mass ratio] 1.1 {ratio} Normal [facility] Comment on above: Performed By: #### I SAMEER PSASC, VITB12 #### [facility] [address] [place] [address] Dr. Edilson Mortensen ALP [Catalytic activity/Vol] 115 U/L Normal 46-116 [facility] Comment on above: Performed By: #### I SAMEER, PSASC, VITB12 #### [facility] [address] [place] [address] Dr. Edilson Mortensen ALT [Catalytic activity/Vol] 12 U/L Critically low 16-63 [facility] Comment on above: Performed By: #### I SAMEER, PSASC, VITB12 #### [facility] [address] [place] [address] Dr. Edilson Mortensen Anion gap [Moles/Vol] 10.6 mmol/L Normal [facility] Comment on above: Performed By: #### I SAMEER, PSASC, VITB12 #### [facility] [address] [place] [address] Dr. Edilson Mortensen AST [Catalytic activity/Vol] 11 U/L Critically low 15-37 [facility] Comment on above: Performed By: #### I SAMEER, PSASC, VITB12 #### [facility] [address] [place] [address] Dr. Edilson Mortensen Bilirubin [Mass/Vol] 0.2 mg/dL Normal 0.2-1.0 [facility] Comment on above: Performed By: #### I SAMEER, PSASC, VITB12 #### [facility] [address] [place] [address] Dr. Edilson Mortensen Calcium [Mass/Vol] 9.1 mg/dL Normal 8.5-10.1 [facility] Comment on above: Performed By: #### I SAMEER, PSASC, VITB12 #### [facility] [address] [place] [address] Dr. Edilson Mortensen Chloride [Moles/Vol] 101 mmol/L Normal 98-107 [facility] Comment on above: Performed By: #### I SAMEER, PSASC, VITB12 #### [facility] [address] [place], [place] [address] Dr. Edilson Mortensen CO2 [Moles/Vol] 29.7 mmol/L Normal 21.0-32.0 [facility] Comment on above: Performed By: #### I IRENA ESTRELLA, VITB12 #### [facility] [address] [address] [address] Edilson Mortensen Creatinine [Mass/Vol] 1.11 mg/dL Normal 0.70-1.30 [facility] Comment on above: Performed By: #### I MARGE ESTRELLASC, VITB12 #### [facility] [address] [address] [address] Edilson Mortensen EGFR-AF CITIZEN OF [place] >60 Normal >=60 [facility] Comment on above: Performed By: #### I MARGE ESTRELLASC, VITB12 #### [facility] [address] [place] [address] Dr. Edilson Mortensen EGFR-NON AF CITIZEN OF THE [place] >60 Normal >=60 [facility] Comment on above: Performed By: #### I MARGE ESTRELLASC, VITB12 #### [facility] [address] [place] [address] Dr. Edilson Mortensen Globulin (S) [Mass/Vol] 3.4 g/dL Normal [facility] Comment on above: Performed By: #### I MARGE ESTRELLASC, VITB12 #### [facility] [address] [place] [address] Dr. Edilson Mortensen Glucose [Mass/Vol] 111 mg/dL Critically high 74-106 [facility] Comment on above: Performed By: #### I SAMEER PSASC, VITB12 #### [facility] [address] [place] [address] Dr. Edilson Mortensen Potassium [Moles/Vol] 4.3 mmol/L Normal 3.5-5.1 [facility] Comment on above: Performed By: #### I SAMEER PSASC, VITB12 #### [facility] [address] [address] [address] Edilson Mortensen Protein [Mass/Vol] 7.0 g/dL Normal 6.4-8.2 [facility] Comment on above: Performed By: #### I SAMEER, PSASC, VITB12 #### [facility] [address] [place] [address] Dr. Edilson Mortensen Sodium [Moles/Vol] 137 mmol/L Normal 136-145 [facility] Comment on above: Performed By: #### I SAMEER PSASC, VITB12 #### [facility] [address] [place] [address] Dr. Edilson Mortensen Urea nitrogen [Mass/Vol] 12.0 mg/dL Normal 7.0-18.0 [facility] Comment on above: Performed By: #### I MARGE ESTRELLASC, VITB12 #### [facility] [address] [place] [address] Dr. Edilson Mortensen Urea nitrogen/Creatinine [Mass ratio] 10.8 mg/mg Normal [facility] Comment on above: Performed By: #### I MARGE ESTRELLASC, VITB12 #### [facility] [address] [place] [address] Dr. Edilson Mortensen TSHon 06-09-2022 TSH 1.807 uIU/mL Normal 0.358-3.74 0 [facility] Comment on above: Performed By: #### I MARGE ESTRELLASC, VITB12 #### [facility] [address] [place] [address] Dr. Edilson Mortensen URIC ACID SERUMon 06-09-2022 Urate [Mass/Vol] 4.1 mg/dL Normal 3.5-7.2 [facility] Comment on above: Performed By: #### I MARGE ESTRELLASC, VITB12 #### [facility] [address] [place] [address] Dr. Edilson Mortensen VITAMIN B12on 06-09-2022 Cobalamin (Vitamin B12) [Mass/Vol] 282.0 pg/mL Normal 193.0-986. 0 [facility] Comment on above: Performed By: #### I SAMEER PSASC, VITB12 #### [facility] [address] [place] [address] Dr. Edilson Mortensen CBC AUTO DIFFon 04-15-2022 BASO # 0.1 103/ul Normal 0.0-0.1 [facility] Comment on above: Performed By: #### I SAMEER PSASC, VITB12 #### [facility] [address] [place] [address] Dr. Edilson Mortensen Basophils/100 WBC (Bld) 0.5 % Normal 0.2-2.0 [facility] Comment on above: Performed By: #### I SAMEER PSASC, VITB12 #### [facility] [address] [place] [address] Dr. Edilson Mortensen EO # 0.2 103/ul Normal 0.0-0.7 [facility] Comment on above: Performed By: #### I SAMEER PSASC, VITB12 #### [facility] [address] [place] [address] Dr. Edilson Mortensen Eosinophils/100 WBC (Bld) 1.6 % Normal 0.9-7.0 [facility] Comment on above: Performed By: #### I SAMEER PSASC, VITB12 #### [facility] [address] [place] [address] Dr. Edilson Mortensen Erythrocyte distribution width (RBC) [Ratio] 12.8 % Normal 11.0-15.0 [facility] Comment on above: Performed By: #### I SAMEER PSASC, VITB12 #### [facility] [address] [place] [address] Dr. Edilson Mortensen Hematocrit (Bld) [Volume fraction] 41.4 % Critically low 42.0-54.0 [facility] Comment on above: Performed By: #### I SAMEER, PSASC, VITB12 #### [facility] [address] [place] [address] Dr. Edilson Mortensen Hemoglobin (Bld) [Mass/Vol] 14.5 g/dL Normal 14.0-18.0 [facility] Comment on above: Performed By: #### I SAMEER, PSASC, VITB12 #### [facility] [address] [place] [address] Dr. Edilson Mortensen IG # 0.12 10e3/ul Critically high 0.00-0.03 [facility] Comment on above: Performed By: #### I SAMEER, PSASC, VITB12 #### [facility] [address] [place] [address] Dr. Edilson Mortensen IG % 1.2 % Critically high 0.0-0.5 [facility] Comment on above: Performed By: #### I SAMEER, PSASC, VITB12 #### [facility] [address] [place] [address] Dr. Edilson Mortensen LYMPH # 1.9 103/ul Normal 1.2-3.8 [facility] Comment on above: Performed By: #### I SAMEER PSASC, VITB12 #### [facility] [address] [place] [address] Dr. Edilson Mortensen Lymphocytes/100 WBC (Bld) 18.8 % Critically low 20.5-60.0 [facility] Comment on above: Performed By: #### I SAMEER PSASC, VITB12 #### [facility] [address] [place] [address] Dr. Edilson Mortensen MANUAL DIFF REQ NO Normal [facility] Comment on above: Performed By: #### I SAMEER PSASC, VITB12 #### [facility] [address] [place] [address] Dr. Edilson Mortensen MCH (RBC) [Entitic mass] 34.1 pg Critically high 25.9-34.0 [facility] Comment on above: Performed By: #### I SAMEER PSASC, VITB12 #### [facility] [address] [place] [address] Dr. Edilson Mortensen MCHC (RBC) [Mass/Vol] 35.0 g/dL Normal 29.9-35.2 [facility] Comment on above: Performed By: #### I SAMEER PSASC, VITB12 #### [facility] [address] [place] [address] Dr. Edilson Mortensen MCV (RBC) [Entitic vol] 97.4 fL Critically high 80.0-94.0 [facility] Comment on above: Performed By: #### I SAMEER PSASC, VITB12 #### [facility] [address] [address] [address] Edilson Mortensen MONO # 1.2 103/ul Critically high 0.3-0.8 [facility] Comment on above: Performed By: #### I SAMEER, PSASC, VITB12 #### [facility] [address] [place] [address] Dr. Edilson Mortensen Monocytes/100 WBC (Bld) 12.1 % Critically high 1.7-12.0 [facility] Comment on above: Performed By: #### I SAMEER, PSASC, VITB12 #### [facility] [address] [place] [address] Dr. Edilson Mortensen NEUT # 6.7 103/ul Critically high 1.4-6.5 [facility] Comment on above: Performed By: #### I SAMEER PSASC, VITB12 #### [facility] [address] [place] [address] Dr. Edilson Mortensen Neutrophils/100 WBC (Bld) 65.8 % Normal 43.0-75.0 [facility] Comment on above: Performed By: #### I SAMEER PSASC, VITB12 #### [facility] [address] [place] [address] Dr. Edilson Mortensen Platelet mean volume (Bld) [Entitic vol] 8.4 fL Critically low 9.5-13.5 [facility] Comment on above: Performed By: #### I SAMEER PSASC, VITB12 #### [facility] [address] [place] [address] Dr. Edilson Mortensen PLT 312 103/ul Normal 150-450 [facility] Comment on above: Performed By: #### I SAMEER PSASC, VITB12 #### [facility] [address] [place] [address] Dr. Edilson Mortensen RBC 4.25 106/ul Critically low 4.70-6.10 [facility] Comment on above: Performed By: #### I SAMEER, PSASC, VITB12 #### [facility] [address] [place] [address] Dr. Edilson Mortensen WBC 10.2 103/ul Normal 4.0-11.0 [facility] Comment on above: Performed By: #### I SAMEER, PSASC, VITB12 #### [facility] [address] [place] [address] Dr. Edilson Mortensen PROF 14(COMP METB)on 022 Albumin [Mass/Vol] 3.2 g/dL Critically low 3.4-5.0 [facility] Comment on above: Performed By: #### C MP #### [facility] [address] [place] [address] Dr. Edilson Mortensen Albumin/Globulin [Mass ratio] 1.1 {ratio} Normal [facility] Comment on above: Performed By: #### C MP #### [facility] [address] [place] [address] Dr. Edilson Mortensen ALP [Catalytic activity/Vol] 153 U/L Critically high 46-116 [facility] Comment on above: Performed By: #### C MP #### [facility] [address] [place] [address] Dr. Edilson Mortensen ALT [Catalytic activity/Vol] 15 U/L Critically low 16-63 [facility] Comment on above: Performed By: #### C MP #### [facility] [address] [place] [address] Dr. Edilson Mortensen Anion gap [Moles/Vol] 11.2 mmol/L Normal [facility] Comment on above: Performed By: #### C MP #### [facility] [address] [place] [address] Dr. Edilson Mortensen AST [Catalytic activity/Vol] 10 U/L Critically low 15-37 [facility] Comment on above: Performed By: #### C MP #### [facility] [address] [place] [address] Dr. Edilson Mortensen Bilirubin [Mass/Vol] 0.4 mg/dL Normal 0.2-1.0 [facility] Comment on above: Performed By: #### C MP #### [facility] [address] [place] [address] Dr. Edilson Mortensen Calcium [Mass/Vol] 9.1 mg/dL Normal 8.5-10.1 [facility] Comment on above: Performed By: #### C MP #### [facility] [address] [address] [address] Edilson Mortensen Chloride [Moles/Vol] 105 mmol/L Normal 98-107 [facility] Comment on above: Performed By: #### C MP #### [facility] [address] [place] [address] Dr. Edilson Mortensen CO2 [Moles/Vol] 25.9 mmol/L Normal 21.0-32.0 [facility] Comment on above: Performed By: #### C MP #### [facility] [address] [place] [address] Dr. Edilson Mortensen Creatinine [Mass/Vol] 0.82 mg/dL Normal 0.70-1.30 [facility] Comment on above: Performed By: #### C MP #### [facility] [address] [place] [address] Dr. Edilson Mortensen EGFR-AF CITIZ[place] >60 Normal >=60 [facility] Comment on above: Performed By: #### C MP #### [facility] [address] [place] [address] Dr. Edilson Mortensen EGFR-NON AF CITIZEN [place] >60 Normal >=60 [facility] Comment on above: Performed By: #### C MP #### [facility] [address] [place] [address] Dr. Edilson Mortensen Globulin (S) [Mass/Vol] 3.0 g/dL Normal [facility] Comment on above: Performed By: #### C MP #### [facility] [address] [place] [address] Dr. Edilson Mortensen Glucose [Mass/Vol] 112 mg/dL Critically high 74-106 [facility] Comment on above: Performed By: #### C MP #### [facility] [address] [place] [address] Dr. Edilson Mortensen Potassium [Moles/Vol] 4.1 mmol/L Normal 3.5-5.1 [facility] Comment on above: Performed By: #### C MP #### [facility] [address] [address] [address] Edilson Mortensen Protein [Mass/Vol] 6.2 g/dL Critically low 6.4-8.2 [facility] Comment on above: Performed By: #### C MP #### [facility] [address] [address] [address] Edilson Mortensen Sodium [Moles/Vol] 138 mmol/L Normal 136-145 [facility] Comment on above: Performed By: #### C MP #### [facility] [address] [place] [address] Dr. Edilson Mortensen Urea nitrogen [Mass/Vol] 7.0 mg/dL Normal 7.0-18.0 [facility] Comment on above: Performed By: #### C MP #### [facility] [address] [place] [address] Dr. Edilson Mortensen Urea nitrogen/Creatinine [Mass ratio] 8.5 mg/mg Normal [facility] Comment on above: Performed By: #### C MP #### [facility] [address] [place] [address] Dr. Edilson Mortensen BNPon 04-14-2022 Natriuretic peptide B (Bld) [Mass/Vol] 120.0 pg/mL Normal <=900.0 [facility] Comment on above: Performed By: #### I IRENA ESTRELLA VITB12 #### [facility] [address] [place] [address] Dr. Edilson Mortensen CBC AUTO DIFFon 04-14-2022 BASO # 0.1 103/ul Normal 0.0-0.1 [facility] Comment on above: Performed By: #### I IRENA ESTRELLA, VITB12 #### [facility] [address] [place] [address] Dr. Edilson Mortensen Basophils/100 WBC (Bld) 0.4 % Normal 0.2-2.0 [facility] Comment on above: Performed By: #### I MARGE ESTRELLASC, VITB12 #### [facility] [address] [place] [address] Dr. Edilson Mortensen EO # 0.2 103/ul Normal 0.0-0.7 [facility] Comment on above: Performed By: #### I SAMEER, PSASC, VITB12 #### [facility] [address] [place] [address] Dr. Edilson Mortensen Eosinophils/100 WBC (Bld) 1.3 % Normal 0.9-7.0 [facility] Comment on above: Performed By: #### I SAMEER, PSASC, VITB12 #### [facility] [address] [place] [address] Dr. Edilson Mortensen Erythrocyte distribution width (RBC) [Ratio] 13.1 % Normal 11.0-15.0 [facility] Comment on above: Performed By: #### I SAMEER, PSASC, VITB12 #### [facility] [address] [place] [address] Dr. Edilson Mortensen Hematocrit (Bld) [Volume fraction] 43.2 % Normal 42.0-54.0 [facility] Comment on above: Performed By: #### I SAMEER PSASC, VITB12 #### [facility] [address] [place] [address] Dr. Edilson Mortensen Hemoglobin (Bld) [Mass/Vol] 14.3 g/dL Normal 14.0-18.0 [facility] Comment on above: Performed By: #### I SAMEER, PSASC, VITB12 #### [facility] [address] [place] [address] Dr. Edilson Mortensen IG # 0.11 10e3/ul Critically high 0.00-0.03 [facility] Comment on above: Performed By: #### I SAMEER, PSASC, VITB12 #### [facility] [address] [place] [address] Dr. Edilson Mortensen IG % 0.9 % Critically high 0.0-0.5 [facility] Comment on above: Performed By: #### I SAMEER, PSASC, VITB12 #### [facility] [address] [place] [address] Dr. Edilson Mortensen LYMPH # 2.0 103/ul Normal 1.2-3.8 [facility] Comment on above: Performed By: #### I MARGE ESTRELLASC, VITB12 #### [facility] [address] [place] [address] Dr. Edilson Mortensen Lymphocytes/100 WBC (Bld) 15.8 % Critically low 20.5-60.0 [facility] Comment on above: Performed By: #### I SAMEER PSASC, VITB12 #### [facility] [address] [place] [address] Dr. Edilson Mortensen MANUAL DIFF REQ NO Normal [facility] Comment on above: Performed By: #### I MARGE ESTRELLASC, VITB12 #### [facility] [address] [place] [address] Dr. Edilson Mortensen MCH (RBC) [Entitic mass] 33.6 pg Normal 25.9-34.0 [facility] Comment on above: Performed By: #### I SAMEER PSASC, VITB12 #### [facility] [address] [place] [address] Dr. Edilson Mortensen MCHC (RBC) [Mass/Vol] 33.1 g/dL Normal 29.9-35.2 [facility] Comment on above: Performed By: #### I SAMEER PSASC, VITB12 #### [facility] [address] [place] [address] Dr. Edilson Mortensen MCV (RBC) [Entitic vol] 101.6 fL Critically high 80.0-94.0 [facility] Comment on above: Performed By: #### I SAMEER PSASC, VITB12 #### [facility] [address] [place] [address] Dr. Edilson Mortensen MONO # 1.5 103/ul Critically high 0.3-0.8 [facility] Comment on above: Performed By: #### I SAMEER, PSASC, VITB12 #### [facility] [address] [place] [address] Dr. Edilson Mortensen Monocytes/100 WBC (Bld) 11.5 % Normal 1.7-12.0 [facility] Comment on above: Performed By: #### I SAMEER PSASC, VITB12 #### [facility] [address] [address] [address] Edilson Mortensen NEUT # 8.9 103/ul Critically high 1.4-6.5 [facility] Comment on above: Performed By: #### I SAMEER PSASC, VITB12 #### [facility] [address] [place] [address] Dr. Edilson Mortensen Neutrophils/100 WBC (Bld) 70.1 % Normal 43.0-75.0 [facility] Comment on above: Performed By: #### I MARGE ESTRELLASC, VITB12 #### [facility] [address] [place] [address] Dr. Edilson Mortensen Platelet mean volume (Bld) [Entitic vol] 8.3 fL Critically low 9.5-13.5 [facility] Comment on above: Performed By: #### I MARGE ESTRELLASC, VITB12 #### [facility] [address] [place] [address] Dr. Edilson Mortensen PLT 328 103/ul Normal 150-450 [facility] Comment on above: Performed By: #### I MARGE ESTRELLASC, VITB12 #### [facility] [address] [place] [address] Dr. Edilson Mortensen RBC 4.25 106/ul Critically low 4.70-6.10 [facility] Comment on above: Performed By: #### I MARGE ESTRELLASC, VITB12 #### [facility] [address] [place] [address] Dr. Edilson Mortensen WBC 12.6 103/ul Critically high 4.0-11.0 [facility] Comment on above: Performed By: #### I MARGE ESTRELLASC, VITB12 #### [facility] [address] [place] [address] Dr. Edilson Mortensen CTA CHEST WO W CONon --2 022 CTA CHEST WO W CON CTA [...] The subdiaphragmatic abdominal organs included in the [id number] do not demonstrate any acute abnormality. IMPRESSION: 1. Positive for small left-sided acute pulmonary emboli. No heart strain. 2. Groundglass opacities in the lung bases. Please correlate for pneumonia versus atelectasis. 3. Ascending aorta is aneurysmal measuring 4 cm. CRITICAL findings: Spoke with Dr. Johny Collazo at 9:23 [facility] EST Electronically authenticated by: MOIZ BROWNING Date: 2022-04-14 21:31 Normal [facility] Covid-19 PCR (CVDTB)on 03-29 SARS-CoV-2 (COVID-19) RNA KEATON+probe Ql (Unsp spec) Not detected Normal NOT DETECTED [facility] Comment on above: Result Comment: When diagnostic [...] for this test is supported by the [employer] Technician of Health and Human Service's declaration that [...] used). Performed By: #### C VDTBH #### [facility] [address] [address] [address] Edilson Mortensen D-DIMERon 04-14-2022 D-DIMER 1.18 mg/L FEU Critically high <=0.59 [facility] Comment on above: Performed By: #### T HYLC #### [facility] [address] [address] [address] Edilson Mortensen D-DIMER COMMENTS SEE BELOW Normal [facility] Comment on above: Result Comment: Incr eases [...] hospitalization. Performed By: #### T HYLC #### [facility] [address] [address] [address] Edilson Mortensen PROF 14(COMP METB)on 022 Albumin [Mass/Vol] 3.2 g/dL Critically low 3.4-5.0 [facility] Comment on above: Performed By: #### I SAMEER, PSASC, VITB12 #### [facility] [address] [address] [address] Edilson Mortensen Albumin/Globulin [Mass ratio] 0.8 {ratio} Normal [facility] Comment on above: Performed By: #### I SAMEER, PSASC, VITB12 #### [facility] [address] [address] [address] Edilson Mortensen ALP [Catalytic activity/Vol] 141 U/L Critically high 46-116 [facility] Comment on above: Performed By: #### I SAMEER, PSASC, VITB12 #### [facility] [address] [place] [address] Dr. Edilson oMrtensen ALT [Catalytic activity/Vol] 13 U/L Critically low 16-63 [facility] Comment on above: Performed By: #### I SAMEER PSASC, VITB12 #### [facility] [address] [place] [address] Dr. Edilson Mortensen Anion gap [Moles/Vol] 13.7 mmol/L Normal [facility] Comment on above: Performed By: #### I SAMEER PSASC, VITB12 #### [facility] [address] [place] [address] Dr. Edilson Mortensen AST [Catalytic activity/Vol] 10 U/L Critically low 15-37 [facility] Comment on above: Performed By: #### I SAMEER PSASC, VITB12 #### [facility] [address] [place] [address] Dr. Edilson Mortensen Bilirubin [Mass/Vol] 0.2 mg/dL Normal 0.2-1.0 [facility] Comment on above: Performed By: #### I SAMEER PSASC, VITB12 #### [facility] [address] [place] [address] Dr. Edilson Mortensen Calcium [Mass/Vol] 9.0 mg/dL Normal 8.5-10.1 [facility] Comment on above: Performed By: #### I SAMEER, PSASC, VITB12 #### [facility] [address] [place] [address] Dr. Edilson Mortensen Chloride [Moles/Vol] 104 mmol/L Normal 98-107 [facility] Comment on above: Performed By: #### I SAMEER, PSASC, VITB12 #### [facility] [address] [address] [address] Edilson Mortensen CO2 [Moles/Vol] 27.0 mmol/L Normal 21.0-32.0 [facility] Comment on above: Performed By: #### I SAMEER, PSASC, VITB12 #### [facility] [address] [address] [address] Edilson Mortensen Creatinine [Mass/Vol] 0.88 mg/dL Normal 0.70-1.30 [facility] Comment on above: Performed By: #### I SAMEER, PSASC, VITB12 #### [facility] [address] [address] [address] Edilson Mortensen EGFR-AF CITIZEN OF [place] >60 Normal >=60 [facility] Comment on above: Performed By: #### I SAMEER, PSASC, VITB12 #### [facility] [address] [place] [address] Dr. Edilson Mortensen EGFR-NON AF CITIZEN OF [place] >60 Normal >=60 [facility] Comment on above: Performed By: #### I SAMEER, PSASC, VITB12 #### [facility] [address] [address] [address] Edilson Mortensen Globulin (S) [Mass/Vol] 3.9 g/dL Normal [facility] Comment on above: Performed By: #### I SAMEER, PSASC, VITB12 #### [facility] [address] [place] [address] Dr. Edilson Mortensen Glucose [Mass/Vol] 92 mg/dL Normal 74-106 [facility] Comment on above: Performed By: #### I SAMEER, PSASC, VITB12 #### [facility] [address] [address] [address] Edilson Mortensen Potassium [Moles/Vol] 4.0 mmol/L Normal 3.5-5.1 [facility] Comment on above: Performed By: #### I SAMEER, PSASC, VITB12 #### [facility] [address] [address] [address] Edilson Mortensen Protein [Mass/Vol] 7.1 g/dL Normal 6.4-8.2 [facility] Comment on above: Performed By: #### I SAMEER PSASC, VITB12 #### [facility] [address] [place] [address] Dr. Edilson Mortensen Sodium [Moles/Vol] 141 mmol/L Normal 136-145 [facility] Comment on above: Performed By: #### I SAMEER PSASC, VITB12 #### [facility] [address] [place] [address] Dr. Edilson Mortensen Urea nitrogen [Mass/Vol] 9.0 mg/dL Normal 7.0-18.0 [facility] Comment on above: Performed By: #### I MARGE ESRTELLASC, VITB12 #### [facility] [address] [place] [address] Dr. Edilson Mortensen Urea nitrogen/Creatinine [Mass ratio] 10.2 mg/mg Normal [facility] Comment on above: Performed By: #### I IRENA ESTRELLA, VITB12 #### [facility] [address] [place] [address] Dr. Edilson Mortensen PROTIMEon 04-14-2022 INR Coag (PPP) [Relative time] {INR} Normal [facility] Comment on above: Performed By: #### T HYLC #### [facility] [address] [place] [address] Dr. Eidlson Mortensen INR GUIDELINES SEE BELOW Normal [facility] Comment on above: Result Comment: GERARDO RED INR: 2.0 - 3.0 CONDITIONS NOT LISTED BELOW 2.5 - 3.5 FOR PROSTHETIC HEART VALVE REPLACEMENT 2.5 - 3.5 RECURRENT THROMBOSIS Performed By: #### T HYLC #### [facility] [address] [place] [address] Dr. Edilson Mortensen PT Coag (PPP) [Time] 9.7 s Normal 9.0-11.6 [facility] Comment on above: Performed By: #### T HYLC #### [facility] [address] [place] [address] Dr. Edilson Mortensen PTTon 04-14-2022 aPTT Coag (Bld) [Time] 28.5 s Normal 22.3-36.2 Th e [facility] Comment on above: Performed By: #### T HYLC #### [facility] [address] [address] [address] Edilson Mortensen TROPONIN, HIGH SENSITIVITYon 04-14-2022 HSTROP 6.7 pg/mL Normal 4.0-76.1 [facility] Comment on above: Result Comment: CUT- OFF POINTS HAVE BEEN ESTABLISHED BASED ON THE FOURTH UNIVERSAL DEFINITIONS OF MYOCARDIAL INFARCTION. THE UPPER REFERENCE LIMIT (URL) OF TROPONIN, DEFINED THE 99TH PERCENTILE OF cTnI DISTRIBUTION IN A REFERENCE POPULATION, HAS BEEN CONFIRMED THE DECISION THRESHOLD FOR MA DIAGNOSIS. Performed By: #### I SAMEER, PSASC, VITB12 #### [facility] [address] [address] [address] Edilson Mortensen XR CHEST 1 Von [...] by: SAMANTA JENNINGS Date: 2022-04-14 18:40 Normal [facility] XR CSPINE 2_3 VIEWSon 2021 [...] by: SAMANTA PLASCENCIA Date: 2022-03-16 07:11 Normal [facility] Activated partial thrombopla stin time (aPTT) in platelet poor plasma by coagulation aOrdered By: Antwon Hastings on 02-28-2022 aPTT Coag (PPP) [Time] 24.3 s 25.1-36.5 [facility] Albumin [Mass/volume] in Ser um or PlasmaOrdered By: Laura Yu on 02-28-2022 Albumin [Mass/Vol] 3.5 g/dL 3.2-5.[address] [facility] Basophils Auto (Bld) [#/Vol] Ordered By: Antwon Hastings on 02-28-2022 Basophils (Bld) [#/Vol] 0.0 10*3/uL 0.0-0.2 [facility] Basophils Auto (Bld) [#/Vol] Ordered By: Laura Yu on 02-28-2022 Basophils (Bld) [#/Vol] 0.1 10*3/uL 0.0-0.2 [facility] Basophils/100 WBC Auto (Bld) Ordered By: Antwon Hastings on 02-28-2022 Basophils/100 WBC (Bld) 0.3 % [facility] Basophils/100 WBC Auto (Bld) Ordered By: Laura Yu on 02-28-2022 Basophils/100 WBC (Bld) 0.6 % [facility] Blood hemoglobin measurement (mass/volume)Ordered By: Antwon Hastings on 02-28-2022 Hemoglobin (Bld) [Mass/Vol] 15.3 g/dL 13.0-17.0 [facility] Blood hemoglobin measurement (mass/volume)Ordered By: Laura Yu on 02-28-2022 Hemoglobin (Bld) [Mass/Vol] 15.1 g/dL 13.0-17.0 [facility] Blood leukocytes automated c ount (number/volume)Ordered By: Antwon Hastings on 02-28-2022 WBC (Bld) [#/Vol] 13.1 10*3/uL 4.5-11.0 [facility] Blood leukocytes automated c ount (number/volume)Ordered By: Laura Yu on 02-28-2022 WBC (Bld) [#/Vol] 13.1 10*3/uL 4.5-11.0 [facility] COVID-19 Positive/NegativeOr dered By: Laura Yu on 02-28-2022 SARS-CoV-2 (COVID-19) N gene KEATON+probe Ql (Resp) Negative Negative [facility] Comment on above: Testing for SARS-CoV -2 by RT-PCR This test was developed and its performance characteristics determined by [employer] ([employer]) and validated at the [facility]. This test has not been FDA cleared [...] (COVID-19) Ag IA.rapid Ql (Resp) Negative Negative [facility] Comment on above: This is a duplicate Iraida SARS Antigen (HAILEE) result to be used for statistical tracking purpose only. Creatinine and Glomerular fi ltration rate.predicted panel (S/P/Bld)Ordered By: Antwon Hastings on 02-28-2022 Creatinine [Mass/Vol] 1.00 mg/dL 0.64-1.27 [facility] Creatinine and Glomerular fi ltration rate.predicted panel (S/P/Bld)Ordered By: Laura Yu on 02-28-2022 Creatinine [Mass/Vol] 0.97 mg/dL 0.64-1.27 [facility] Eosinophils Auto (Bld) [#/Vo l]Ordered By: Antwon Hastings on 02-28-2022 Eosinophils (Bld) [#/Vol] 0.0 10*3/uL 0.0-0.45 [facility] Eosinophils Auto (Bld) [#/Vo l]Ordered By: Laura Srinivasanimore on 02-28-2022 Eosinophils (Bld) [#/Vol] 0.0 10*3/uL 0.0-0.45 [facility] Eosinophils/100 WBC Auto (Bl d)Ordered By: Antwon Hastings on 02-28-2022 Eosinophils/100 WBC (Bld) 0.4 % [facility] Eosinophils/100 WBC Auto (Bl d)Ordered By: Laura Yu on 02-28-2022 Eosinophils/100 WBC (Bld) 0.1 % [facility] Erythrocyte distribution wid th Auto (RBC) [Ratio]Ordered By: Antwon Hastings on 02-28-2022 Erythrocyte distribution width (RBC) [Ratio] 13.3 % 12.0-14.8 [facility] Erythrocyte distribution wid th Auto (RBC) [Ratio]Ordered By: Laura Yu on 02-28-2022 Erythrocyte distribution width (RBC) [Ratio] 13.3 % 12.0-14.8 [facility] Estimated glomerular filtrat ion rate (GFR) non- AmericanOrdered By: Antwon Hastings on 02-28-2022 GFR/1.73 sq M.predicted among non-blacks MDRD (S/P/Bld) [Vol rate/Area] > 60 mL/Min [facility] Estimated glomerular filtrat ion rate (GFR) non- AmericanOrdered By: Laura Yu on 02-28-2022 GFR/1.73 sq M.predicted among non-blacks MDRD (S/P/Bld) [Vol rate/Area] > 60 mL/Min [facility] Globulin Calc (S) [Mass/Vol] Ordered By: Laura Yu on 02-28-2022 Globulin (S) [Mass/Vol] 2.7 g/dL [facility] Hematocrit Auto (Bld) [Volum e fraction]Ordered By: Antwon Hastings on 02-28-2022 Hematocrit (Bld) [Volume fraction] 43.3 % 38.8-50.0 [facility] Hematocrit Auto (Bld) [Volum e fraction]Ordered By: Laura Yu on 02-28-2022 Hematocrit (Bld) [Volume fraction] 44.1 % 38.8-50.0 [facility] - Chemistry and C hemistry - challengeOrdered By: Antwon Hastings on 02-28-2022 Natriuretic peptide B (Bld) [Mass/Vol] 79.0 pg/mL 5-100 [facility] - CoagulationOrde red By: Antwon Hastings on 02-28-2022 PT Coag (PPP) [Time] 10.0 s 9.0-12.9 [facility] - CoagulationOrde red By: Laura Yu on 02-28-2022 PT Coag (PPP) [Time] 10.0 s 9.0-12.9 [facility] - Hematology and Cell countsOrdered By: Antwon Hastings on 02-28-2022 Nucleated RBC/100 WBC (Bld) [Ratio] 0.0 % 0-0.5 [facility] - Hematology and Cell countsOrdered By: Laura Yu on 02-28-2022 Nucleated RBC/100 WBC (Bld) [Ratio] 0.1 % 0-0.5 [facility] Lymphocytes Auto (Bld) [#/Vo l]Ordered By: Antwon Hastings on 02-28-2022 Lymphocytes (Bld) [#/Vol] 2.0 10*3/uL 1.00-4.8 [facility] Lymphocytes Auto (Bld) [#/Vo l]Ordered By: Laura Yu on 02-28-2022 Lymphocytes (Bld) [#/Vol] 1.2 10*3/uL 1.00-4.8 [facility] Lymphocytes/100 WBC Auto (Bl d)Ordered By: Antwon Hastings on 02-28-2022 Lymphocytes/100 WBC (Bld) 15.3 % [facility] Lymphocytes/100 WBC Auto (Bl d)Ordered By: Laura Yu on 02-28-2022 Lymphocytes/100 WBC (Bld) 9.5 % [facility] MCH Auto (RBC) [Entitic mass ]Ordered By: Antwon Hastings on 02-28-2022 MCH (RBC) [Entitic mass] 34.9 pg 27.5-35.2 [facility] MCH Auto (RBC) [Entitic mass ]Ordered By: Laura Yu on 02-28-2022 MCH (RBC) [Entitic mass] 33.9 pg 27.5-35.2 [facility] MCHC Auto (RBC) [Mass/Vol]Or dered By: Antwon Hastings on 02-28-2022 MCHC (RBC) [Mass/Vol] 35.2 g/dL 32.5-35.6 [facility] MCHC Auto (RBC) [Mass/Vol]Or dered By: Laura Yu on 02-28-2022 MCHC (RBC) [Mass/Vol] 34.3 g/dL 32.5-35.6 [facility] MCV Auto (RBC) [Entitic vol] Ordered By: Antwon Hastings on 02-28-2022 MCV (RBC) [Entitic vol] 99.0 fL 83.5-101 [facility] MCV Auto (RBC) [Entitic vol] Ordered By: Laura Yu on 02-28-2022 MCV (RBC) [Entitic vol] 98.6 fL 83.5-101 [facility] Monocytes Auto (Bld) [#/Vol] Ordered By: Antwon Hastings on 02-28-2022 Monocytes (Bld) [#/Vol] 0.8 10*3/uL 0.0-0.8 [facility] Monocytes Auto (Bld) [#/Vol] Ordered By: Laura Yu on 02-28-2022 Monocytes (Bld) [#/Vol] 1.0 10*3/uL 0.0-0.8 [facility] Monocytes/100 WBC Auto (Bld) Ordered By: Antwon Hastings on 02-28-2022 Monocytes/100 WBC (Bld) 6.2 % [facility] Monocytes/100 WBC Auto (Bld) Ordered By: Laura Yu on 02-28-2022 Monocytes/100 WBC (Bld) 7.6 % [facility] Neutrophils Auto (Bld) [#/Vo l]Ordered By: Antwon Hastings on 02-28-2022 Neutrophils (Bld) [#/Vol] 10.2 10*3/uL 1.8-7.7 [facility] Neutrophils Auto (Bld) [#/Vo l]Ordered By: Laura Yu on 02-28-2022 Neutrophils (Bld) [#/Vol] 10.8 10*3/uL 1.8-7.7 [facility] Neutrophils/100 WBC Auto (Bl d)Ordered By: Antwon Hastings on 02-28-2022 Neutrophils/100 WBC (Bld) 77.8 % [facility] Neutrophils/100 WBC Auto (Bl d)Ordered By: Laura Yu on 02-28-2022 Neutrophils/100 WBC (Bld) 82.2 % [facility] No Panel InformationOrdered By: Antwon Hastings on 02-28-2022 Estimated GFR () > 60 mL/Min [facility] Comment on above: GFR estimated refere nce range: According to KDOQI guidelines, <60 ml/min/1.73m2 is sufficient to diagnose a patient with chronic kidney disease. Pharmacy Creatinine Clearance (Chem 72.57 [facility] No Panel InformationOrdered By: Laura Yu on 02-28-2022 Estimated GFR () > 60 mL/Min [facility] Comment on above: GFR estimated refere nce range: According to KDOQI guidelines, <60 ml/min/1.73m2 is sufficient to diagnose a patient with chronic kidney disease. Pharmacy Creatinine Clearance (Chem 74.82 [facility] SARS Antigen (LFIA) [facility] Platelet mean volume Auto (B ld) [Entitic vol]Ordered By: Antwon Hastings on 02-28-2022 Platelet mean volume (Bld) [Entitic vol] 6.4 fL 6.6-10.1 [facility] Platelet mean volume Auto (B ld) [Entitic vol]Ordered By: Laura Yu on 02-28-2022 Platelet mean volume (Bld) [Entitic vol] 6.4 fL 6.6-10.1 [facility] Platelet poor plasma interna tional normalized ratio (INR) by coagulation assay (relatOrdered By: Antwon Hastings on 02-28-2022 INR Coag (PPP) [Relative time] 0.9 {INR} [facility] Comment on above: INR Therapeutic Rang e [...] INR Coag (PPP) [Relative time] 0.9 {INR} [facility] Comment on above: INR Therapeutic Rang e [...] 02-28-2022 Platelets (Bld) [#/Vol] 316 10*3/uL 150-450 [facility] Platelets Auto (Bld) [#/Vol] Ordered By: Laura Yu on 02-28-2022 Platelets (Bld) [#/Vol] 316 10*3/uL 150-450 [facility] Protein [Mass/volume] in Ser um or PlasmaOrdered By: Laura Yu on 02-28-2022 Protein [Mass/Vol] 6.2 g/dL 6.1-7.[address] [facility] RBC Auto (Bld) [#/Vol]Ordere d By: Antwon Hastings on 02-28-2022 RBC (Bld) [#/Vol] 4.38 10*6/uL 3.90-5.60 [facility] RBC Auto (Bld) [#/Vol]Ordere d By: Laura Yu on 02-28-2022 RBC (Bld) [#/Vol] 4.47 10*6/uL 3.90-5.60 [facility] Serum or plasma alanine bowden otransferase measurement without P-5'-P (enzymatic activiOrdered By: Laura Yu on 02-28-2022 ALT No additional P-5'-P [Catalytic activity/Vol] 25 U/L 10-60 [facility] Serum or plasma albumin/glob ulin mass ratioOrdered By: Laura Yu on 02-28-2022 Albumin/Globulin [Mass ratio] 1.3 {ratio} [facility] Serum or plasma alkaline mariella sphatase measurement (enzymatic activity/volume)Ordered By: Laura Yu on 02-28-2022 ALP [Catalytic activity/Vol] 67 U/L 32-92 [facility] Serum or plasma aspartate am inotransferase measurement (enzymatic activity/volume)Ordered By: Laura Yu on 02-28-2022 AST [Catalytic activity/Vol] 14 U/L 10-42 [facility] Serum or plasma calcium carlos urement (mass/volume)Ordered By: Antwon Hastings on 02-28-2022 Calcium [Mass/Vol] 9.0 mg/dL 8.2-10.[address] [facility] Serum or plasma calcium carlos urement (mass/volume)Ordered By: Laura Yu on 02-28-2022 Calcium [Mass/Vol] 9.0 mg/dL 8.2-10.[address] [facility] Serum or plasma chloride french surement (moles/volume)Ordered By: Antwon Hastings on 02-28-2022 Chloride [Moles/Vol] 97 mmol/L 95-114 [facility] Serum or plasma chloride french surement (moles/volume)Ordered By: Laura Yu on 02-28-2022 Chloride [Moles/Vol] 100 mmol/L 95-114 [facility] Serum or plasma glucose carlos urement (mass/volume)Ordered By: Antwon Hastings on 02-28-2022 Glucose [Mass/Vol] 130 mg/dL 70-[address] [facility] Comment on above: ADA recommended refe rence range Random Glucose Reference Range is dependent on time and content of last meal. Glucose of more than 200 mg/dL in a nonstressed, ambulatory subject supports the diagnosis of Diabetes Mellitus. Serum or plasma glucose carlos urement (mass/volume)Ordered By: Laura Yu on 02-28-2022 Glucose [Mass/Vol] 123 mg/dL 70-[address] [facility] Comment on above: ADA recommended refe rence rangeRandom Glucose Reference Range is dependent on time and content of last meal. Glucose of more than 200 mg/dL in a nonstressed, ambulatory subject supports the diagnosis of Diabetes Mellitus. Serum or plasma potassium me asurement (moles/volume)Ordered By: Antwon Hastings on 02-28-2022 Potassium [Moles/Vol] 3.9 mmol/L 3.5-5.1 [facility] Serum or plasma potassium me asurement (moles/volume)Ordered By: Lauar Yu on 02-28-2022 Potassium [Moles/Vol] 4.1 mmol/L 3.5-5.1 [facility] Serum or plasma sodium measu rement (moles/volume)Ordered By: Antwon Hastings on 02-28-2022 Sodium [Moles/Vol] 133 mmol/L 136-[address] [facility] Serum or plasma sodium measu rement (moles/volume)Ordered By: Laura Yu on 02-28-2022 Sodium [Moles/Vol] 133 mmol/L 136-[address] [facility] Serum or plasma total biliru bin measurement (mass/volume)Ordered By: Laura Yu on 02-28-2022 Bilirubin [Mass/Vol] 0.4 mg/dL 0.3-1.2 [facility] Serum or plasma total carbon dioxide measurement (moles/volume)Ordered By: Antwon Hastings on 02-28-2022 CO2 [Moles/Vol] 24.7 mmol/L 22.0-30.0 [facility] Serum or plasma total carbon dioxide measurement (moles/volume)Ordered By: Laura Yu on 02-28-2022 CO2 [Moles/Vol] 23.7 mmol/L 22.0-30.0 [facility] Serum or plasma urea nitroge n measurement (mass/volume)Ordered By: Antwon Hastings on 02-28-2022 Urea nitrogen [Mass/Vol] 13 mg/dL 9-23 [facility] Serum or plasma urea nitroge n measurement (mass/volume)Ordered By: Laura Yu on 02-28-2022 Urea nitrogen [Mass/Vol] 13 mg/dL 07-21 [facility] Amphetamine Screen Ql (U)Ord ered By: Mitchel De Los Santos on 02-08-2022 Amphetamines Ql (U) Negative Negative [facility] Barbiturates [Presence] in U rineOrdered By: Mitchel De Los Santos on 02-08-2022 Barbiturates Ql (U) Negative Negative [facility] Benzodiazepines [Presence] i n UrineOrdered By: Mitchel De Los Santos on 02-08-2022 Benzodiazepines Ql (U) Negative Negative [facility] Cannabinoids [Presence] in U rine by Screen methodOrdered By: Mitchel De Los Santos on 02-08-2022 Cannabinoids Screen Ql (U) Positive Negative [facility] Comment on above: These are unconfirme d [...] on 02-08-2022 Opiates Ql (U) Negative Negative [facility] Phencyclidine Screen Ql (U)O rdered By: Mitchel De Los Santos on 02-08-2022 Phencyclidine Ql (U) Negative Negative [facility] Urine cocaine detectionOrder ed By: Mitchel De Los Santos on 02-08-2022 Cocaine Ql (U) Negative Negative [facility] COVID-19 SOFIAOrdered By: Do henny Quintanilla on 02-06-2022 SARS-CoV+SARS-CoV-2 (COVID-19) Ag IA.rapid Ql (Resp) Negative Negative [facility] Comment on above: This is a duplicate Iraida SARS Antigen (HAILEE) result to be used for statistical tracking purpose only. No Panel InformationOrdered By: Yury Quintanilla on 02-06-2022 SARS Antigen (LFIA) [facility] Cardiovascular Lab Reporton 01-21-2019 Cardiovascular Lab Report [facility] Patient Name: Mary Aburto [facility] MR #: [id number] Physician: Virgilio Bundy of [facility] Date: 01/21/2019 Division of Birthdate: 1960 Cardiology Room #: [facility] Cardiovascular Services [facility] [address] [place] [address] Cardiovascular Laboratory Report INDICATION: The patient is [...] signed informed consent. He was brought to laboratory veterinarian in a fasting state. The left wrist area was prepped and draped in usual fashion. Chas's test was favorable. Access in the left radial artery was obtained using micropuncture technique, a 6-Northern Irish x 11 cm Hydrophilic sheath was advanced. Verapamil was given through the sheath and heparin was administered intravenously. Bilateral selective coronary angiography was then performed using 6-[place] JL4 and JR4 diagnostic catheters. Catheters were [...] P/Virgilio Edwards M.D. Date Trans: 01/21/2019 04:37 P/sidney [id number] cc: Yury Quintanilla M.D. [address] [id number] [facility] Vital Signs Date Time Vital Sign Value Performing Clinician Facility 04-10-2024 08:31-0400 Body height 177.8 cm MD Yury Quintanilla Work Phone: [facility] 04-10-2024 08:31-0400 Body mass index (BMI) [Ratio] 21.8 kg/m2 MD Yury Quintanilla Work Phone: [facility] 04-10-2024 08:31-0400 Body weight 68.94 kg MD Yury Quintanilla Work Phone: [facility] 02-28-2024 15:25-0400 Diastolic blood pressure 85 mm[Hg] Damián Estrada [facility] 02-28-2024 15:25-0400 Heart rate 76 /min Damián Estrada [facility] 02-28-2024 15:25-0400 Mean blood pressure 97 mm[Hg] Damián Estrada [facility] 02-28-2024 15:25-0400 Respiratory rate 16 /min Damián Estrada [facility] 02-28-2024 15:25-0400 Systolic blood pressure 120 mm[Hg] Damián Estrada [facility] 01-23-2024 15:12-0400 Heart rate 58 /min Damián Estrada [facility] 01-23-2024 15:12-0400 SaO2% (BldA) [Mass fraction] 97 % Damián Estrada [facility] 01-23-2024 15:12-0400 Diastolic blood pressure 84 mm[Hg] Damián Estrada [facility] 01-23-2024 15:12-0400 Mean blood pressure 102 mm[Hg] Damián Estrada [facility] 01-23-2024 15:12-0400 Systolic blood pressure 139 mm[Hg] Damián Estrada [facility] 01-23-2024 14:59-0400 Diastolic blood pressure 95 mm[Hg] Damián Estrada [facility] 01-23-2024 14:59-0400 Heart rate 55 /min Damián Estrada [facility] 01-23-2024 14:59-0400 SaO2% (BldA) [Mass fraction] 100 % [facility] [facility] 01-23-2024 14:59-0400 Systolic blood pressure 129 mm[Hg] Damián Estrada [facility] 01-23-2024 14:32-0400 Heart rate 56 /min Damián Estrada [facility] 01-23-2024 14:32-0400 SaO2% (BldA) [Mass fraction] 98 % Damián Sean [facility] 01-23-2024 14:32-0400 Body temperature 97.52 [degF] Damián Estrada [facility] 01-23-2024 14:31-0400 Diastolic blood pressure 83 mm[Hg] Damián Estrada [facility] 01-23-2024 14:31-0400 Mean blood pressure 98 mm[Hg] Damián Estrada [facility] 01-23-2024 14:31-0400 Systolic blood pressure 126 mm[Hg] Damián Estrada [facility] 01-23-2024 14:30-0400 Respiratory rate 14 /min Damián Estrada [facility] 12-06-2023 10:29-0500 Respiratory rate 16 /min Damián Estrada [facility] 10-18-2023 14:49-0500 Diastolic blood pressure 80 mm[Hg] Damián Estrada [facility] 10-18-2023 14:49-0500 Heart rate 58 /min Damián Estrada [facility] 10-18-2023 14:49-0500 Mean blood pressure 89 mm[Hg] Damián Estrada [facility] 10-18-2023 14:49-0500 Respiratory rate 16 /min Damián Estrada [facility] 10-18-2023 14:49-0500 Systolic blood pressure 108 mm[Hg] Damián Estrada [facility] 08-14-2023 15:40-0400 Body height 177.8 cm Antwon Hastings Other [employer] Other 08-14-2023 15:40-0400 Body mass index (BMI) [Ratio] 22.24 kg/m2 Antwon Hastings Other [employer] Other 08-14-2023 15:40-0400 Body weight 70.31 kg Antwon Hastings Other [employer] Other 04-03-2023 15:40-0400 Body height 177.8 cm Antwon Hastings Other [employer] Other 04-03-2023 15:40-0400 Body mass index (BMI) [Ratio] 7.32 kg/m2 Antwon Hastings Other [employer] Other 04-03-2023 15:40-0400 Body weight 23.13 kg Antwon Hastings Other [employer] Other 02-27-2023 14:00-0400 Body height 177.8 cm Antwon Hastings Other [employer] Other 02-27-2023 14:00-0400 Body mass index (BMI) [Ratio] 21.66 kg/m2 Antwon Hastings Other [employer] Other 02-27-2023 14:00-0400 Body weight 68.49 kg Antwon Hastings Other [employer] Other 02-27-2023 14:00-0400 Diastolic blood pressure 80 mm[Hg] Antwon Hastings Other [employer] Other 02-27-2023 14:00-0400 Systolic blood pressure 128 mm[Hg] Antwon Hastings Other [employer] Other 02-14-2023 07:57-0400 Body temperature 97.5 [degF] MD Yury Quintanilla Work Phone: [facility] 02-14-2023 07:57-0400 Diastolic blood pressure 85 mm[Hg] MD Yury Quintanilla Work Phone: [facility] 02-14-2023 07:57-0400 Heart rate 89 /min MD Yury Quintanilla Work Phone: [facility] 02-14-2023 07:57-0400 Respiratory rate 18 /min MD Yury Quintanilla Work Phone: [facility] 02-14-2023 07:57-0400 SaO2% (BldA) [Mass fraction] 97 % MD Yury Quintanilla Work Phone: [facility] 02-14-2023 07:57-0400 Systolic blood pressure 135 mm[Hg] MD Yury Quintanilla Work Phone: [facility] 02-14-2023 06:00-0400 Body weight 75.9 kg MD Yury Quintanilla Work Phone: [facility] 02-13-2023 08:32-0400 Inhaled oxygen flow rate 2 L/min MD Yury Quintanilla Work Phone: [facility] 02-12-2023 07:33-0400 Body mass index (BMI) [Ratio] 22.4 kg/m2 MD Yury Quintanilla Work Phone: [facility] 02-12-2023 07:00-0400 Body height 175.26 cm MD Yury Quintanilla Work Phone: [facility] 01-11-2023 09:40-0400 Body height 177.8 cm Antwon Hastings Other [employer] Other 01-11-2023 09:40-0400 Body mass index (BMI) [Ratio] 20.37 kg/m2 Antwon Hastings Other [employer] Other 01-11-2023 09:40-0400 Body weight 64.41 kg Antwon Hastings Other [employer] Other 01-11-2023 09:40-0400 Diastolic blood pressure 90 mm[Hg] Antwon Hastings Other [employer] Other 01-11-2023 09:40-0400 Systolic blood pressure 128 mm[Hg] Antwon Hastings Other [employer] Other 12-07-2022 12:40-0500 Body height 177.8 cm Antwon Hastings Other [employer] Other 12-07-2022 12:40-0500 Body mass index (BMI) [Ratio] 20.37 kg/m2 Antwon Hastings Other [employer] Other 12-07-2022 12:40-0500 Body weight 64.41 kg Antwon Hastings Other [employer] Other 12-07-2022 12:40-0500 Respiratory rate 16 /min Antwon Hastings Other [employer] Other 08-01-2022 10:00-0400 Body height 177.8 cm Antwon Hastings Other [employer] Other 08-01-2022 10:00-0400 Body mass index (BMI) [Ratio] 20.37 kg/m2 Antwon Hastings Other [employer] Other 08-01-2022 10:00-0400 Body weight 64.41 kg Antwon Hastings Other [employer] Other 05-11-2022 11:40-0400 Body height 177.8 cm Antwon Hastings Other [employer] Other 05-11-2022 11:40-0400 Body mass index (BMI) [Ratio] 20.37 kg/m2 Antwon Hastings Other [employer] Other 05-11-2022 11:40-0400 Body weight 64.41 kg Antwon Hastings Other [employer] Other 03-16-2022 10:00-0400 Body height 177.8 cm Antwon Hastings Other [employer] Other 03-16-2022 10:00-0400 Body mass index (BMI) [Ratio] 20.43 kg/m2 Antwon Hastings Other [facility] [employer] Other 03-16-2022 10:00-0400 Body weight 64.59 kg Antwon Hastings Other [employer] Other 03-02-2022 15:59-0400 Body temperature 97.6 [degF] MD Yury Quintanilla Work Phone: [facility] 03-02-2022 15:59-0400 Diastolic blood pressure 86 mm[Hg] MD Yury Quintanilla Work Phone: [facility] 03-02-2022 15:59-0400 Heart rate 82 /min MD Yury Quintanilla Work Phone: [facility] 03-02-2022 15:59-0400 Respiratory rate 16 /min MD Yury Quintanilla Work Phone: [facility] 03-02-2022 15:59-0400 SaO2% (BldA) [Mass fraction] 95 % MD Yury Quintanilla Work Phone: [facility] 03-02-2022 15:59-0400 Systolic blood pressure 144 mm[Hg] MD Yury Quintanilla Work Phone: [facility] 03-02-2022 05:30-0400 Body weight 69 kg MD Yury Quintanilla Work Phone: [facility] 03-01-2022 19:34-0400 Inhaled oxygen flow rate 2 L/min MD Yury Quintanilla Work Phone: [facility] 03-01-2022 16:00-0400 Body height 175.26 cm MD Yury Quintanilla Work Phone: [facility] 03-01-2022 09:37-0400 Body mass index (BMI) [Ratio] 22.4 kg/m2 MD Yury Quintanilla Work Phone: [facility] 02-28-2022 12:21-0400 Diastolic blood pressure 102 mm[Hg] MD Yury Quintanilla Work Phone: [facility] 02-28-2022 12:21-0400 Heart rate 60 /min MD Yury Quintanilla Work Phone: [facility] 02-28-2022 12:21-0400 Respiratory rate 20 /min MD Yury Quintanilla Work Phone: [facility] 02-28-2022 12:21-0400 SaO2% (BldA) [Mass fraction] 98 % MD Yury Quintanilla Work Phone: [facility] 02-28-2022 12:21-0400 Systolic blood pressure 163 mm[Hg] MD Yury Quintanilla Work Phone: [facility] 02-28-2022 11:16-0400 Body temperature 98 [degF] MD Yury Quintanilla Work Phone: [facility] 02-28-2022 08:55-0400 Body height 175.26 cm MD Yury Quintanilla Work Phone: [facility] 02-28-2022 08:55-0400 Body mass index (BMI) [Ratio] 21.2 kg/m2 MD Yury Quintanilla Work Phone: [facility] 02-28-2022 08:55-0400 Body weight 65.31 kg MD Yury Quintanilla Work Phone: [facility] 02-23-2022 09:20-0400 Body height 177.8 cm Antwon Hastings Other [employer] Other 02-23-2022 09:20-0400 Body mass index (BMI) [Ratio] 20.66 kg/m2 Antwon Hastings Other [facility] [employer] Other 02-23-2022 09:20-0400 Body weight 65.32 kg Antwon a[employer]stings Other [employer] [facility] [employer] Other 02-08-2022 16:10-0400 Diastolic blood pressure 81 mm[Hg] MD Yury Quintanilla Work Phone: [facility] 02-08-2022 16:10-0400 Heart rate 59 /min MD Yury Quintanilla Work Phone: [facility] 02-08-2022 16:10-0400 Respiratory rate 16 /min MD Yury Quintanilla Work Phone: [facility] 02-08-2022 16:10-0400 SaO2% (BldA) [Mass fraction] 100 % MD Yury Quintanilla Work Phone: [facility] 02-08-2022 16:10-0400 Systolic blood pressure 132 mm[Hg] MD Yury Quintanilla Work Phone: [facility] 02-08-2022 15:41-0400 Body height 175.26 cm MD Yury Quintanilla Work Phone: [facility] 02-08-2022 15:41-0400 Body mass index (BMI) [Ratio] 21.4 kg/m2 MD Yury Quintanilla Work Phone: [facility] 02-08-2022 15:41-0400 Body weight 66 kg MD Yury Quintanilla Work Phone: [facility] 02-08-2022 12:36-0400 Body temperature 98.5 [degF] MD Yury Quintanilla Work Phone: [facility] 01-26-2022 07:47-0400 Diastolic blood pressure 100 mm[Hg] MD Yury Quintanilla Work Phone: [facility] 01-26-2022 07:47-0400 Heart rate 80 /min MD Yury Quintanilla Work Phone: [facility] 01-26-2022 07:47-0400 Respiratory rate 16 /min MD Yury Quintanilla Work Phone: [facility] 01-26-2022 07:47-0400 SaO2% (BldA) [Mass fraction] 98 % MD Yury Quintanilla Work Phone: [facility] 01-26-2022 07:47-0400 Systolic blood pressure 147 mm[Hg] MD Yury Quintanilla Work Phone: [facility] 01-26-2022 07:43-0400 Body height 175.26 cm MD Yury Quintanilla Work Phone: [facility] 01-26-2022 07:43-0400 Body weight 63.5 kg MD Yury Quintanilla Work Phone: [facility] Encounters Encounter Date Encounter Type Care Provider Facility Start: 04-10-2024 End: 04-10-2024 Patient encounter procedure MD Yury Quintanilla Work Phone: [facility] Neurosurgery Work Phone: Start: 04-10-2024 End: 04-10-2024 ambulatory MD Yury Quintanilla Work Phone: [facility] Work Phone: Start: 02-28-2024 End: 02-28-2024 ambulatory Damián Estrada Facility:[facility] Start: 02-28-2024 End: 02-28-2024 Pain Management Damián Estrada [facility] Start: 01-23-2024 End: 01-23-2024 ambulatory Damián Estrada Facility:[facility] Start: 01-23-2024 End: 01-23-2024 Pain Management Damián Estrada [facility] Start: 12-20-2023 End: 12-20-2023 ambulatory KENNEDI VIVIANA [facility] Start: 12-06-2023 End: 12-06-2023 ambulatory Damián Estrada Facility:[facility] Start: 12-06-2023 End: 12-06-2023 Pain Management Steel Krista Estrada [facility] Start: 12-05-2023 End: 12-07-2023 Pre-admission assessment Damián Estrada [facility] Start: 10-18-2023 End: 11-30-2023 Pre-admission assessment Damián Krista Estrada [facility] Start: 10-18-2023 End: 10-18-2023 ambulatory Damián SnowAnya Estrada Facility:[facility] Start: 10-18-2023 End: 10-18-2023 Pain Management Steel Krista Estrada [facility] Start: 10-12-2023 End: 10-12-2023 ambulatory Antwon Hastings Other [facility] [employer] Other Start: 10-12-2023 Telephone encounter Antwon Hastings [facility] Neurosurgery Start: 08-29-2023 End: 08-29-2023 ambulatory Antwon Hastings Other [facility] [employer] Other Start: 08-29-2023 Telephone encounter Antwon Hastings [facility] [employer] Start: 08-14-2023 End: 08-14-2023 Patient encounter procedure MD Yury Quintanilla Work Phone: [facility] Work Phone: Start: 08-14-2023 End: 08-14-2023 ambulatory MD Yury Quintanilla Work Phone: [facility] Work Phone: Start: 08-14-2023 Office outpatient vi sit 25 minutes Antwon Hastings [facility] Start: 05-22-2023 End: 05-22-2023 Patient encounter procedure MD Yury Quintanilla Work Phone: [facility]-XRay [facility] Work Phone: Start: 05-22-2023 End: 05-22-2023 ambulatory Antwon Hastings Facility:[facility] Start: 04-23-2023 End: 04-23-2023 ambulatory Antwon Hastings Other [facility] [employer] Other Start: 04-23-2023 Telephone encounter Antwon Hastings [facility] Start: 04-16-2023 End: 04-16-2023 ambulatory Antwon Hastings Other [facility] [employer] Other Start: 04-16-2023 Telephone encounter Antwon Hastings [facility] Start: 04-03-2023 End: 04-03-2023 Patient encounter procedure MD Yury Quintanilla Work Phone: [facility]-XRay [facility] Work Phone: Start: 04-03-2023 End: 04-03-2023 ambulatory MD Yury Quintanilla Work Phone: [facility] Work Phone: Start: 04-03-2023 Office outpatient vi sit 15 minutes Antwon Hastings [facility] Start: 03-27-2023 End: 03-27-2023 ambulatory Antwon Hastings Other [facility] [employer] Other Start: 03-27-2023 Telephone encounter Antwon Hastings [facility] Start: 03-05-2023 End: 03-05-2023 ambulatory Antwonmaria l Hastings Other [facility] [employer] Other Start: 03-05-2023 Telephone encounter Antwon Hastings [facility] Neurosurgery Start: 02-27-2023 End: 02-27-2023 ambulatory Antwon Hastings Other [employer] Other Start: 02-27-2023 Postop follow up vis it related to original px Antwon Hastings [facility] Neurosurgery Start: 02-26-2023 End: 02-26-2023 ambulatory Antwon Hastings Other [employer] Other Start: 02-26-2023 Telephone encounter Antwon Hastings [facility] Neurosurgery Start: 02-24-2023 End: 02-24-2023 ambulatory Antwon Hastings Other [facility] [employer] Other Start: 02-24-2023 Telephone encounter Antwon Hastings [facility] Start: 02-23-2023 End: 02-23-2023 ambulatory Antwon Hastings Other [facility] [employer] Other Start: 02-23-2023 Telephone encounter Antwon Hastings [facility] Start: 02-17-2023 End: 02-17-[address] YURY QUINTANILLA . Facility: Start: 02-12-2023 End: 02-14-2023 Evaluation and management of inpatient MD Yury Quintanilla Work Phone: [facility]-[address] [place] [address] Work Phone: Start: 01-29-2023 End: 01-29-2023 ambulatory MD Yury Quintanilla Work Phone: [facility] Work Phone: Start: 01-29-2023 End: 01-29-2023 Patient encounter procedure MD Yury Quintanilla Work Phone: [facility]-Pre-Surgical Testing Work Phone: Start: 01-11-2023 End: 01-11-2023 ambulatory Antwonmaria l Hastings Other [employer] Other Start: 01-11-2023 Office outpatient vi sit 40 minutes Antwon Hastings [facility] Neurosurgery Start: 12-25-2022 End: 12-25-2022 ambulatory MD Yury Quintanilla Work Phone: [facility] Work Phone: Start: 12-25-2022 End: 12-25-2022 Patient encounter procedure MD Yury Quintanilla Work Phone: [facility]-MRI [facility] [place] Work Phone: Start: 12-07-2022 End: 12-07-2022 ambulatory Antwon Hastings Other [employer] Other Start: 12-07-2022 Office outpatient vi sit 15 minutes Antwon Hastings [facility] Neurosurgery Start: 11-13-2022 End: 11-13-[address] YURY QUINTANILLA . Facility:[facility] Start: 10-23-2022 End: 10-23-2022 ambulatory MD Yury Quintanilla Work Phone: [facility] Work Phone: Start: 10-23-2022 End: 10-23-2022 Patient encounter procedure MD Yury Quintanilla Work Phone: [facility]-XRay [facility] [place] Work Phone: Start: 09-26-[address] YURY QUINTANILLA . Facili ty:[facility] Start: 08-01-2022 End: 08-01-2022 ambulatory Antwon Hastings Other [employer] Other Start: 08-01-2022 Office outpatient vi sit 15 minutes Antwon Hastings [facility] Neurosurgery Start: 07-13-2022 End: 07-14-[address] YURY QUINTANILLA . Facility:[facility] Start: 07-06-2022 End: 07-07-[address] YURY QUINTANILLA . Facility:[facility] Start: 06-09-2022 End: 06-10-[address] YURY QUINTANILLA . Facility:[facility] Start: 05-11-2022 End: 05-11-2022 ambulatory Antwon Hastings Other [employer] Other Start: 05-11-2022 Postop follow up vis it related to original px Antwon Hastings [facility] Neurosurgery Start: 05-11-2022 End: 05-11-2022 Patient encounter procedure MD Yury Quintanilla Work Phone: [facility] Start: 04-15-2022 End: 04-15-[address] YURY QUINTANILLA . Facility:[facility] Start: 03-23-2022 End: 03-23-2022 ambulatory Antwon Hastings Other [employer] Other Start: 03-23-2022 Telephone encounter Antwon Hastings [facility] Neurosurgery Start: 03-16-2022 End: 03-16-2022 ambulatory Antwon Hastings Other [employer] Other Start: 03-16-2022 Postop follow up vis it related to original px Antwon Hastings [facility] Neurosurgery Start: 03-15-2022 End: 03-16-[address] ANTWON HASTINGS Facility:[facility] Start: 03-07-2022 End: 03-07-2022 ambulatory Lele Fong Other [employer] Other Start: 03-07-2022 Telephone encounter Lele Fong [facility] Neurosurgery Start: 03-02-[address] Rigo Hughes Fac ility:[facility] Start: 03-01-2022 Admission to [facility] surgery center Antwon Hastings [facility] Start: 03-01-2022 End: 03-01-2022 ambulatory Antwon Hastings Other [employer] Other Start: 02-28-2022 End: 03-02-2022 Evaluation and management of inpatient MD Yury Quintanilla Work Phone: [facility] [place] [facility] Start: 02-28-[address] Rigo Hughes Facility:[id number] Start: 02-23-2022 End: 02-23-2022 ambulatory Antwon Hastings Other [employer] Other Start: 02-23-2022 Office outpatient ne w 60 minutes Antwon Hastings [facility] Neurosurgery Start: 02-08-2022 End: 02-08-2022 Admission to same day surgery center MD Yury Quintanilla Work Phone: [facility]-Surgery Center [facility] [place] Start: 02-06-2022 End: 02-06-2022 Patient encounter procedure MD Yury Quintanilla Work Phone: [facility]-Pre-Surgical Testing Start: 01-26-2022 End: 01-26-2022 Patient encounter procedure MD Yury Quintanilla Work Phone: [facility]-MRI [facility] [place] Start: 01-21-2019 End: 01-22-2019 Patient encounter procedure PROVIDER UNKNOWN Facility:[facility] Procedures Date Procedure Procedure Detail Performing Clinician Start: 04-10-2024 X-ray of cervical spine MD Yury Quintanilla Work Phone: Start: 01-23-2024 Epidural injection o f thoracic spine using fluoroscopic guidance Damián Estrada Comment on above: T2/3 70% relief Start: 08-14-2023 X-ray of cervical spine MD Yury Quintanilla Work Phone: Start: 05-22-2023 X-ray of cervical spine MD Yury Quintanilla Work Phone: Start: 04-03-2023 X-ray of cervical spine MD Yury Quintanilla Work Phone: Start: 02-12-2023 X-ray of cervical spine MD Yury Quintanilla Work Phone: Start: 12-25-2022 MRI of cervical spin e with contrast MD Yury Quintanilla Work Phone: Start: 10-23-2022 X-ray of cervical spine MD Yury Quintanilla Work Phone: Start: 06-09-[address] ANTWON ESPINOZA Comment on above: Performed By: #### I SAMEER, PSASC, VITB12 #### [facility] [address] [place] [address] Dr. Edilson Mortensen Start: 05-11-2022 X-ray of cervical spine MD Yury Quintanilla Work Phone: Start: 03-01-2022 Decompression of cer vical spine MD Yury Quintanilla Work Phone: Start: 03-01-2022 X-ray of cervical spine MD Yury Quintanilla Work Phone: Start: 02-28-2022 SARS Antigen (LFIA) MD Yury Quintanilla Work Phone: Start: 02-28-2022 Plain chest X-ray MD Cooley Work Phone: Start: 02-08-2022 OR CAT/MRI W/ IV SED ATION (Not Applicable) MD Yury Quintanilla Work Phone: Start: 02-08-2022 MRI of cervical spin e with contrast MD Yury Quintanilla Work Phone: Start: 02-06-2022 SARS Antigen (LFIA) MD Yury Quintanilla Work Phone: Start: 01-21-2019 Cardiac catheter (ph ysical object) Damián Estrada Comment on above: Dr. Edwards Bone structure of cl avicle (body structure) Damián Estrada Cervical laminectomy Agatha Estrada Plan of Treatment Date Care Activity Detail Author Start: 04-10-2024 Patient referral [facility] Work Phone: Start: 02-14-2023 [facility] Start: 02-12-2023 Fusion of 2 or more Cervical Vertebral Joints with Autologous Tissue Substitute, Posterior Approach, Posterior Column, Open Approach Fusion of 2 or more Cervical Vertebral Joints with Autologous Tissue Substitute, Posterior Approach, Posterior Column, Open Approach [facility] Start: 02-12-2023 Fusion of Cervicothoracic Vertebral Joint with Autologous Tissue Substitute, Posterior Approach, Posterior Column, Open Approach Fusion of Cervicothoracic Vertebral Joint with Autologous Tissue Substitute, Posterior Approach, Posterior Column, Open Approach [facility] Start: 02-12-2023 Fusion of Thoracic Vertebral Joint with Autologous Tissue Substitute, Posterior Approach, Posterior Column, Open Approach Fusion of Thoracic Vertebral Joint with Autologous Tissue Substitute, Posterior Approach, Posterior Column, Open Approach [facility] Start: 02-12-2023 Removal of Internal Fixation Device from Cervical Vertebral Joint, Open Approach Removal of Internal Fixation Device from Cervical Vertebral Joint, Open Approach [facility] Start: 10-23-2022 X-ray of cervical spine XR cerv spine AP/LAT/FLX/EXT [facility] Start: 10-23-2022 XR Cervical spine 4 Views [facility] Start: 03-01-2022 X-ray of cervical spine XR cervical spine 2V [facility] Start: 02-28-2022 Fusion of 2 or more Cervical Vertebral Joints with Synthetic Substitute, Posterior Approach, Posterior Column, Open Approach [facility] Start: 02-28-2022 Introduction of Recombinant Bone Morphogenetic Protein into Joints, [facility] Approach [facility] Start: 02-08-2022 OR CAT/MRI W/ IV SEDATION (Not Applicable) OR CAT/MRI W/ IV SEDATION (Not Applicable) [facility] Start: 02-08-2022 MRI of cervical spine with contrast MR cervical spine wo/w con [facility] Patient Education Moderate and D eep Sedation in Adults General Anesthesia (DC) [facility] Work Phone: Patient referral [facility] Work Phone: Immunizations Immunization Date Immunization Notes Care Provider Luis Fernando ledezma 11-09-2021 COVID-19 mRNA Comirnaty (Pfizer) MD Yury Quintanilla Work Phone: [facility] 02-28-2021 COVID-19 mRNA Comirnatmarisel (Pfizer) MD Yury Quintanilla Work Phone: [facility] [facility] 02-07-2021 COVID-19 mRNA Comirkatelin (Pfizer) MD Yury Quintanilla Work Phone: [facility] 07-31-2019 influenza virus vaccine, unspecified formulation Damián Estrada [facility] [place] Payers Date Payer Category Payer Unknown 2023 Medicare [id number] 2023 Self-pay [id number] 1960 Unknown [id number] 2.16.8 40.1.388694.3.579.2.647 1960 Unknown [id number] 2.16. 840.1.773841.3.579.2.356 1962 Unknown [id number] 2.16. 840.1.977694.3.579.2.356 1960 Unknown [id number] 2.16.84 0.1.019087.3.579.2.593 1962 Unknown [id number] 2.16.84 0.1.748825.3.579.2.593 1962 Unknown [id number] 2.16.84 0.1.149037.3.579.2.593 1962 Unknown [id number] 2.16.84 0.1.727729.3.579.2.593 1962 Unknown [id number] 2.16.84 0.1.318908.3.579.2.593 1962 Unknown [id number] 2.16.84 0.1.499404.3.579.2.593 1962 Unknown [id number] 2.16.84 0.1.572364.3.579.2.593 1962 Unknown [id number] 2.16.84 0.1.148171.3.579.2.593 1962 Unknown [id number] 2.16.8 40.1.751779.3.579.2.727 1962 Unknown [id number] 2.16.8 40.1.539731.3.579.2.727 1962 Unknown [id number] 2.16.8 40.1.322695.3.579.2.727 1962 Unknown [id number] 2.16.8 40.1.585282.3.579.2.727 1959 Unknown [id number] 1959 Unknown [id number] 2.16.8 40.1.842751.19 Unknown [id number] 2.16.8 40.1.217359.3.579.2.531 Unknown [id number] 2.16.8 40.1.081175.3.579.2.531 Unknown [id number] 2.16.8 40.1.457083.3.579.2.531 Social History Date Type Detail Facility Tobacco smoking stat [facility] Unknown if ever smoked [facility] Work Phone: Start: 1960 Sex Assigned At Male F [facility] Start: 02-08-2022 End: 02-12-2023 Tobacco smoking status NCIS Ex-smoker (finding) [facility] Start: 02-28-2022 Tobacco smoking stat [facility] Never smoked tobacco (finding) [facility] Sex Assigned At [facility] Tobacco smoking status Never [facility] Medical Equipment Procedure Code Equipment Code Equipment Origin al Text Equipment Identifier Dates Decompression, spine, cervical, posterior approach CANCELLOUS 30CC CRUSHED FDA Start: 03-01-2022 Decompression, spine, cervical, posterior approach Bone-screw internal spinal fixation system, non-sterile ()[id number] FDA Start: 03-01-2022 Decompression, spine, cervical, posterior approach Bone-screw internal spinal fixation system, non-sterile ()[id number] FDA Start: 03-01-2022 Decompression, spine, cervical, posterior approach Bone-screw internal spinal fixation system, non-sterile ()[id number] FDA Start: 03-01-2022 Decompression, spine, cervical, posterior approach Bone-screw internal spinal fixation system, non-sterile ()[id number] FDA Start: 03-01-2022 Decompression, spine, cervical, posterior approach Spinal fusion graft kit ([id number] FDA Start: 03-01-2022 Decompression, spine, cervical, posterior approach Bone-screw internal spinal fixation system, non-sterile ()[id number] FDA Start: 03-01-2022 Decompression, spine, cervical, posterior approach Bone-screw internal spinal fixation system, non-sterile ()[id number] FDA Start: 03-01-2022 Decompression, spine, cervical, posterior approach Bone-screw internal spinal fixation system, non-sterile ()[id number] FDA Start: 03-01-2022 Decompression, spine, cervical, posterior approach Bone-screw internal spinal fixation system, non-sterile ()[id number] FDA Start: 03-01-2022 Decompression, spine, cervical, posterior approach Bone-screw internal spinal fixation system, non-sterile ()[id number] FDA Start: 03-01-2022 Decompression, spine, cervical, posterior approach Bone-screw internal spinal fixation system, non-sterile ()[id number] FDA Start: 03-01-2022 Decompression, spine, cervical, posterior [...] approach Bone-screw internal spinal fixation system, non-sterile ()[id number] FDA Start: 02-12-2023 Decompression, spine, cervical, posterior approach Spinal fusion graft kit ([id number] FDA Start: 02-12-2023 Decompression, spine, cervical, posterior approach Bone-screw internal spinal fixation system, non-sterile ()[id number] FDA Start: 02-12-2023 Decompression, spine, cervical, posterior approach Bone-screw internal spinal fixation system, non-sterile ()[id number] FDA Start: 02-12-2023 Decompression, spine, cervical, posterior [...] /State Functional Status Date Assessment Result Facility 02-28-2024 Functional Status N/A [facility] 01-23-2024 Functional Status N/A [facility] 12-06-2023 Functional Status N/A [facility] 10-18-2023 Functional Status N/A [facility] 02-14-2023 Functional status Patient at [facility] Work Phone: 03-02-2022 Functional status Patient at [facility] Work Phone: 02-28-2022 Functional status Functional Status Comme nt [facility] Work Phone: Mental Status Date Assessment Result Facility 02-14-2023 Cognitive function Cognitive Sta tus Patient at Baseline [facility] Work Phone: 03-02-2022 Cognitive function Cognitive Sta tus Patient at [facility] Work Phone: Clinical Notes 02-23-2022 to 04-10-2024 Note Date & Type Note Facility 04-10-2024 Hospital Discharg e instructions Ambulatory OrdersReferral to Neurology Time Frame: 04/10/24, Location: None Selected [facility] Work Phone: 02-28-2024 Evaluation + Plan note Extrac carlos from: Title:chronic pain Author:Damián Estrada DO Date:02/28/24 Patient is presenting as a f ollow-up visit after T2/3 interlaminar epidural steroid injection on 01/23/2024 for cervical epidural coverage. He received 90% relief ongoing. He rates his pain as a 5/10 and feels that he is significantly better and able to raise his arms above his head and participate in a significant number of activities of daily living that he was able to in the past. Overall he is very happy with these results. He has no new acute complaints at this time. We did review his lumbar spine MRI imaging and discussed that he has moderate central canal stenosis at C5/6. RANDI Score: 42% PHQ-2: 2 Patient denies any symptoms of progressively worsening upper/lower extremity weakness, progressively worsening gait abnormality, new onset bowel/bladder incontinence/ urinary retention, or saddle anesthesia. No new or worsening symptoms of fever, chills, night sweats. 14 Point Review of systems negative unless otherwise noted. General: No acute distress. Patient appears well-nourished. HEENT: Head is normocephalic and external ears are normal in appearance. Cardiovascular: No signs of poor perfusion and no peripheral edema Pulmonary: Nonlabored breathing, symmetric chest movement. GI: Abdomen nondistended Integumentary: No lesions Musculoskeletal: Nontender to palpation over the paraspinal muscles, facets, and sacroiliac joints. Neurologic: Alert, oriented x3. 5/5 strength grossly in the bilateral upper extremities. Slightly diminished sensation in C5 and 6 dermatomes bilaterally. 5/5 strength grossly in the bilateral lower extremities. Special Testing: Negative Logan sign bilaterally, Spurling's reproduce mild radicular symptoms on the right only. History, physical examination, and personal review of pertinent imaging results indicate a diagnosis of: -Cervical stenosis and cervical radiculopathy -Cervical postlaminectomy pain syndrome Plan: - we had a lengthy discussion about his current symptoms it appears that he is significantly better after this epidural steroid injection we discussed to repeat these on an as-needed basis, based on a safety perspective and review of imaging we discussed that we would repeat these again at T2/3 to achieve cervical epidural spread -Will plan to follow-up again in 6 months or sooner if needed Patient was counseled on the above diagnosis and treatment, all questions were answered and patient agrees to adhere to the plan above. Risk and benefits of appropriate procedures and medications were reviewed as well with patient, who voiced understanding and agreeance. Patient was counseled on appropriate use of opioids if prescribed or renewed today and naloxone was offered to patient if opioids were prescribed or maintained at this visit. PHQ-2 scoring reviewed with patient and discussed seeking treatment for depression or mood disorder as appropriate. Patient was counseled on smoking cessation and/or [...] with any questions or concerns that arise. [facility]03-27-2024 Note [id number] NoteDiagnosis: M54.12, cervical radiculopathy Procedure: T2/3 thoracic interlaminar epidural steroid injection under fluoroscopic guidance Anesthesia: Local Complications: none Initial scheduled procedure was to be performed at T1/2, we did review his imaging and discussed with him again that this would likely not be achievable based on his fusion levels and that we should proceed one level lower where there is no laminectomy defects from a safety perspective. Patient voiced understanding was agreeable to proceed. After informed consent was obtained, the patient was brought to the procedure suite and placed in the prone position. Pulse oximetry and blood pressure were monitored throughout. Upper neck/cervical areas prepped and draped in the usual sterile fashion. Using fluoroscopic guidance, the skin and subcutaneous tissue overlying the needle trajectory were anesthetized with 2% lidocaine. A 17-gauge Touhy needle was inserted and directed by fluoroscopy. Entry into the epidural space was confirmed using the yonk-my-emuhseafms technique and 2 cc of air. Injection of contrast revealed appropriate spread without vascular uptake. 3 mL of normal saline plus 40 mg of methylprednisolone was then injected.The needle was removed and the patient was then transferred to the cover room in stable condition. The patient tolerated the procedure well. There were no apparent complications. Follow-up: The patient will update us on the response to this procedure, and agrees to continue currently prescribed/recommended therapies.[facility] Comment on above:Result Comment: Electronically Signed By: Damián Estrada DO.mansoor\Date and Time Signed: 01/23/24 15:15 [id number] Note [id number] 01-23-2024 Evaluation + Plan noteExtracted from: Title:Thoracic interlaminar epidural steroid injection Author:Damián Estrada DO Date:01/23/24 Diagnosis: M54.12, cervical radiculopathy Procedure: T2/3 thoracic interlaminar epidural steroid injection under fluoroscopic guidance Anesthesia: Local Complications: none Initial scheduled procedure was to be performed at T1/2, we did review his imaging and discussed with him again that this would likely not be achievable based on his fusion levels and that we should proceed one level lower where there is no laminectomy defects from a safety perspective. Patient voiced understanding was agreeable to proceed. After informed consent was obtained, the patient was brought to the procedure suite and placed in the prone position. Pulse oximetry and blood pressure were monitored throughout. Upper neck/cervical areas prepped and draped in the usual sterile fashion. Using fluoroscopic guidance, the skin and subcutaneous tissue overlying the needle trajectory were anesthetized with 2% lidocaine. A 17-gauge Touhy needle was inserted and directed by fluoroscopy. Entry into the epidural space was confirmed using the ftbk-xc-punqcmukyh technique and 2 cc of air. Injection of contrast revealed appropriate spread without vascular uptake. 3 mL of normal saline plus 40 mg of methylprednisolone was then injected. The needle was removed and the patient was then transferred to the cover room in stable condition. The patient tolerated the procedure well. There were no apparent complications. Follow-up: The patient will update us on the response to this procedure, and agrees to continue currently prescribed/recommended therapies. Future Appointments Appointment Date:02/28/2024 03:30:00 PM Scheduled Provider:Damián Estrada DO Location:FT.[facility] Appointment Type:Pain Management - Follow Up (FT) [facility]02-22-2024 NotePatient here for 1.5 year follow up CAD, AAA, hx of TIA and PE, and hypertension. [facility] Pain [facility] is requesting he hold aspirin 6 days prior to procedure with them. C/o intermittent chest pressure, lasting a few minutes at a time. C/o fatigue. Denies SOB. He states the chest pressure started when he started taking Daypro a few months ago. He states it isn't really bad, just sort or irritating . Review of Systems Constitutional: Positive for malaise/fatigue. Cardiovascular: Positive for chest pain ( pressure ). Musculoskeletal: Positive for arthritis, back pain, joint pain and neck pain. Neurological: Positive for light-headedness (upon standing up too quickly). All other systems reviewed and are negative.[facility] 12-20-2023 NoteCardiovascular Medicine [facility] SUBJECTIVE Chief Complaint Patient presents with Coronary Artery Disease Hypertension Hyperlipidemia Mary Aburto is a 63 y.o. male here for follow-up. HPI PMHx: CAD, HTN, HLD, former smoker, TIA 2010, AscAo aneurysm, pulmonary embolism Family hx heart disease He is pending some procedures with pain management for his neck pain. He will need to be off of aspirin for this. He notes having some vague sx's of chest discomfort after starting baclofen. [place] like a sharp pain lasting seconds, occurred at rest, happened on a few occasions but none recently. He denies any CP with exertion. He denies any other cardiac complaints including dyspnea, orthopnea, PND, LE edema, dizziness/LH, palpitations, syncope. Patient Active Problem List Diagnosis Cervical disc disorder with myelopathy Chest pain Coronary arteriosclerosis Hypertensive disorder Neck pain Right arm weakness Screening for malignant neoplasm of colon Cervical radiculopathy Status post arthrodesis Past Medical History: Diagnosis Date Aneurysm (CMS/HCC) Coronary artery disease Hyperlipidemia Hypertension Pulmonary embolism (CMS/HCC) Stroke ([facility]/HCC) Family History Problem Relation Name Age of Onset Diabetes Mother Lung cancer Father Lung cancer Sister Social History Tobacco Use Smoking status: Former Types: Cigarettes Quit date: 2017 Years since quittin.1 Smokeless tobacco: Never Substance Use Topics Alcohol use: Yes Comment: occasional Allergies Allergen Reactions Ibuprofen Other Sulfa (Sulfonamide Antibiotics) Other and Swelling Penicillins Other, Rash and Swelling ROS Constitutional: Positive for malaise/fatigue. Cardiovascular: Positive for chest pain ( pressure ). Musculoskeletal: Positive for arthritis, back pain, joint pain and neck pain. Neurological: Positive for light-headedness (upon standing up too quickly). All other systems reviewed and are negative. OBJECTIVE Visit Vitals BP 116/82 (BP Location: Right arm, Patient Position: Sitting) Pulse 73 Ht 1.753 m (5' 9 ) Wt 68.9 kg (152 lb) SpO2 96% BMI 22.45 kg/m??? Smoking Status Former BSA 1.83 m??? Medications: Current Outpatient Medications: aspirin 81 mg EC tablet, Take 1 tablet by mouth in the morning., Disp: , Rfl: atorvastatin (Lipitor) 40 mg tablet, Take 40 mg by mouth in the morning., Disp: , Rfl: baclofen (Lioresal) 20 mg tablet, TAKE 1 TABLET BY MOUTH 3 TIMES A DAY NEEDED WITHOUT REGARDS TO MEALS, Disp: , Rfl: gabapentin (Neurontin) 600 mg tablet, Take 1 mg by mouth in the morning and at bedtime. TAKE 1 TABLET BY MOUTH IN THE MORNING AND 2 TABLETS AT BEDTIME, Disp: , Rfl: levothyroxine (Synthroid, Levoxyl) 75 mcg tablet, Take 1 tablet by mouth in the morning., Disp: , Rfl: metoprolol tartrate (Lopressor) 25 mg tablet, Take 1 tablet twice a day by oral route for 90 days., Disp: , Rfl: oxaprozin (Daypro) 600 mg tablet, Take 1,200 mg by mouth in the morning., Disp: , Rfl: oxyCODONE (Roxicodone) 5 mg immediate release tablet, TAKE 1-2 TABLETS BY MOUTH EVERY 6 HOURS NEEDED FOR PAIN FOR 8 DAYS, Disp: , Rfl: phenytoin ER (Dilantin) 100 mg capsule, Take 1 capsule every day by oral route for 30 days., Disp: , Rfl: traZODone (Desyrel) 100 mg tablet, TAKE 1.5 TABLETS EVERY EVENING, Disp: , Rfl: Physical Exam Constitutional: Appearance: Normal appearance. He is normal weight. HENT: Head: Normocephalic and atraumatic. Right Ear: External ear normal. Left Ear: External ear normal. Eyes: Extraocular Movements: Extraocular movements intact. Pupils: Pupils are equal, round, and reactive to light. Neck: Vascular: No carotid bruit. Cardiovascular: Rate and Rhythm: Normal rate and regular rhythm. Pulses: Normal pulses. Heart sounds: Normal heart sounds. Pulmonary: Effort: Pulmonary effort is normal. Breath sounds: Normal breath sounds. Abdominal: General: Bowel sounds are normal. Palpations: Abdomen is soft. Musculoskeletal: General: Normal range of motion. Cervical back: Neck supple. Right lower leg: No edema. Left lower leg: No edema. Skin: General: Skin is warm and dry. Neurological: General: No focal deficit present. Mental Status: He is alert and oriented to person, place, and time. Psychiatric: Mood and Affect: Mood normal. Behavior: Behavior normal. Thought Content: Thought content normal. Judgment: Judgment normal. Labs: Legacy Encounter on 01/21/2019 Component Date Value Ref Range Status Ventricular Rate 01/21/2019 53 BPM Final Atrial Rate 01/21/2019 53 BPM Final VA Interval 01/21/2019 150 ms Final QRS DURATION 01/21/2019 90 ms Final QT Interval 01/21/2019 420 ms Final QTC CALCULATION(BEZET) 01/21/2019 394 ms Final P [employer] 01/21/2019 33 degrees Final R-[employer] 01/21/2019 53 degrees Final T Wave [employer] 01/21/2019 66 degrees Final Diagnosis 01/21/2019 Final Value:Sinus bra (more content not included)...[facility]02-08-2024 Evaluation + Plan noteExtracted from: Title:Chronic pain Author:Damián Estrada DO Date:12/06/23 Patient is presenting with c omplaints of neck pain that he rates as a 10/10 radiating to his bilateral upper extremities. He has had extensive spinal surgery in the past fused from C4-C7 he had an updated cervical spine MRI most recently that showed moderate central canal stenosis at C4-5. We discussed his multilevel foraminal stenosis as well as symptoms at this time. His pain is significant and severe and he is currently taking gabapentin as well as oxycodone and has not had as significant relief as he had in the past. He would like to know if we can do anything else for his neck pain at this time. He has done a full course of physical therapy to the best of his ability and states that he was unable to continue with physical therapy as it did intensify his pain. Other conservative measures have not been significantly effective and you like to know what else can be done for his pain at this time. RANDI Score: 66% PHQ-2: 2 Patient denies any symptoms of progressively worsening upper/lower extremity weakness, progressively worsening gait abnormality, new onset bowel/bladder incontinence/ urinary retention, or saddle anesthesia. No new or worsening symptoms of fever, chills, night sweats. 14 Point Review of systems negative unless otherwise noted. General: No acute distress. Patient appears well-nourished. HEENT: Head is normocephalic and external ears are normal in appearance. Cardiovascular: No signs of poor perfusion and no peripheral edema Pulmonary: Nonlabored breathing, symmetric chest movement. GI: Abdomen nondistended Integumentary: No lesions Musculoskeletal: Tender to palpation cervical paraspinal musculature. Neurologic: Alert, oriented x3. 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 5/5 strength grossly in the bilateral lower extremities. Special Testing: Negative Logan sign bilaterally. History, physical examination, and personal review of pertinent imaging results indicate a diagnosis of: -Cervical radiculopathy -Cervical postlaminectomy pain syndrome Plan: -Will schedule the patient for a T1/2 interlaminar epidural steroid injection we did review his imaging as well from his recent cervical spine MRI -Follow-up 1 month postinjection or sooner if any issues arise Patient was counseled on the above diagnosis and treatment, all questions were answered and patient agrees to adhere to the plan above. Risk and benefits of appropriate procedures and medications were reviewed as well with patient, who voiced understanding and agreeance. Patient was counseled on appropriate use of opioids if prescribed or renewed today and naloxone was offered to patient if opioids were prescribed or maintained at this visit. Patient was counseled on smoking cessation and/or [...] with any questions or concerns that arise. [facility]12-21-2023 Evaluation + Plan noteExtracted from: Title:Pain Management * Author:Agatha Estrada DO. Date:10/18/23 Impression and Plan History, physical examination, [...] PM Scheduled Provider:Damián Estrada DO Location[facility] Appointment Type:Pain Management - Follow Up (FT) [facility]10-17-2023 Evaluation note* Encounter Date Diagnosis Assessment Notes [...] Jul, Spondylolisthesis, cervical region (ICD-10 - M43.12) [facility] Other 06-06-2023 Evaluation note* Encounter Date Diagnosis [...] Mar, Spondylolisthesis, cervical region (ICD-10 - M43.12) [facility] Other 05-02-2023 Evaluation note* Encounter Date Diagnosis [...] February, Spondylolisthesis, cervical region (ICD-10 - M43.12) [facility] Other 03-16-2023 Evaluation note* Encounter Date Diagnosis [...] Dec, Spondylolisthesis, cervical region (ICD-10 - M43.12) [facility] Other 02-09-2023 Evaluation note* Encounter Date Diagnosis [...] Cervical radiculopathy at C8 (ICD-10 - M54.12) [facility] Other 10-04-2022 Evaluation note* Encounter Date Diagnosis Assessment Notes Treatment Notes Treatment Clinical Notes Jul, Cervical spondylosis with myelopathy (ICD-10 - M47.12) This patient had a very severe cervical myelopathy with right arm weakness, numbness, and some discomfort; he has gotten better with regard to his left arm, but his right arm is never fully recovered, 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 [facility] Other 05-05-2022 Progress note Author Antwon Hastings [facility] March 02, 2022 7:55am Note Date/Time March 02, 2022 7:55am [facility] [address] [place], [place] [id number] Neurosurgery Progress Note Signed Patient: Mary Aburto MR#: [id number] : 1960 Acct:[id number] Age/Sex: 62 / M Adm Date: 2 Loc: 4N Room: [address] [place] [address] Type : ADM IN Attending Dr: Antwon [...] signed by MD Antwon Hastings> 03/02/22 0755 [facility] Work Phone: 1(302) 862-627505-04-2022 History and physical note Author Antwon Hastings [facility] March 01, 2022 8:22am Note Date/Time March 01, 2022 8:21am [facility] [address] [place] [id number] Neurosurgery H&P Signed with Addenda Patient: Mary Aburto MR#: [id number] : 1960 Acct:[id number] Age/Sex: 62 / M Adm Date: 2 Loc: 3T Room: [address] [place] [address] Type : ADM IN Attending Dr: Antwon Hastings MD Copies to: MD Yury Tran MD~ ADDENDUM1 Date of admission is [...] 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 He is developing significant shoulder pain. 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 is become weaker and his right arm [...] negative unless noted below or in HPI [facility] Vaccinated for COVID-19?: Yes Medical History Hypertension [...] midline hips normal range of motion without Allan's sign Skin: reasonable turgor and texture no [...] % (Auto) 77.8, Lymph % (Auto) 15.3, Mathews % (Auto) 6.2, Eos % (Auto) 0.4, Baso % (Auto) 0.3, Neut # (Auto) 10.2 H, Lymph # (Auto) 2.0, Mathews # (Auto) 0.8, Eos # (Auto) 0.0, [...] % (Auto) 82.2, Lymph % (Auto) 9.5, Mathews % (Auto) 7.6, Eos % (Auto) 0.1, Baso % (Auto) 0.6, Neut # (Auto) 10.8 H, Lymph # (Auto) 1.2, Mathews # (Auto) 1.0 H, Eos # (Auto) [...] <Electronically signed by MD Antwon Hastings> 03/01/22820 [facility] Work Phone: [phone]) 248-646905-03-2022 Consult note Author W Deejay Hughes [facility] February 28, 2022 7:06pm Note Date/Time February 28, 2022 7:06pm [facility] [address] [place] [address] Cardiology Consult Note Signed Patient: Mary Aburto MR#: [id number] : 1960 Acct:[id number] Age/Sex: 62 / M Adm Date: 2 Loc: Room: [address] [place] [address] Type : ADM IN Attending Dr: Antwon Hastings MD Copies to: MD Yury Tran MD W Scott Sheldon, DO~ Cardiology [...] tingling. Pt has a PMHx of CAD, MA, HLD, HTN. He had been following up [...] cardiac arrest . This event occurred in [place], he recalls the history reasonably well, strangely, he states that he was only admitted for 4 to5 hours and discharged with no further follow-up. He denies any cardiac surgeryor stenting. 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 strength of right hand and shoulder) Extrem [...] x10E3/uL Lymph # (Auto) 1.2 (1.00-4.8) x10E3/uL Mathews # (Auto) 1.0 H (0.0-0.8) x10E3/uL Eos [...] signed by Lupe Hughes DO> 02/28/22 1906 [facility] Work Phone: 1(184) 834-840404-28-2022 Evaluation note* Encounter Date Diagnosis Assessment Notes [...] Cervical spondylosis with myelopathy (ICD-10 - M47.12) [employer] Other evaluation noteNo assessment information available [facility] Work Phone: Evaluation note* Diagnosis Onset Date Resolution Status Cervical disc disorder with myelopathy acute Right arm weakness acute [facility] Work Phone: Evaluation noteNo InformationNort Weatherista Other evaluation note* Diagnosis Onset Date Resolution Status Spinal stenosis of cervical region with radiculopathy acute [facility] Work Phone: Evaluation note* Diagnosis Onset Date Resolution Status History of fusion of cervical spine acute Spondylolisthesis, cervical region acute [facility] Work Phone: History general Narrative - Reported* Type Description Date Medical History thyroid disease Surgical History heart catheterization [employer] Other History general Narrative - Reported* Type Description Date Medical History thyroid disease Surgical History heart catheterization Surgical History Posterior Cervical Fusion-[facility] Hospitalization History See Above [employer] Other History general Narrative - Reported* Type Description Date Medical History thyroid disease Medical History high cholesterol Surgical History heart catheterization Surgical History Posterior Cervical Fusion-[facility]ct[facility] Hospitalization History See Above [facility] Other History general N[facility]ative - [facility] Other History general Narrative - Reported* Type Description Date Medical History thyroid disease Medical History high cholesterol Surgical History heart catheterization Surgical History Posterior Cervical Fusion-[facility]cto r [facility] Surgical History PCD with fusion 2022 Hospitalization History See Above [facility] Other Hospital course Narrative No data available for this section [facility] Work Phone: Hospital Discharge instructions No data available for this section [facility] Dis[facility] instructionsAmbulatory Orders* Referral to Neurology Time Frame: 04/10/24, Location: [facility] Work Phone: Progress note No data available for this section [facility] for [facility] NarrativePain Medicine Referral UpdateNort Weatherista Other Summary Purpose Family History No Family [...] region with radiculopathy Chief Complaint m43.12 M43.12 Chief Complaint M43.12 1 YR PO CERVICAL FUSION W/X-RAY Reason for Visit History of fusion of cervical spine Spondylolisthesis, cervical region Reason for Referral Reason evaluate and treat Diagnosis 1 Cervical radiculopat hy at C8 (M54.12) Referral Organization [facility] Referring Provider First Name Antwon Referring Provider Last Name Breanna Referring Provider Specialty Neurologica l Surgery Referred Organization [facility] Referred Provider Damián Estrada Referred Address [address] [place], [place],[address] Referred Provider Specialty Pain Medicin e Referral Priority Routine Reason EMG/NCV RUE Diagnosis 1 Ulnar neuropathy of right upper extremity (G56.21) Referral Organization [facility] Referring Provider First Name Antwon Referring Provider Last Name Breanna Referring Provider Specialty Neurologica l Surgery Referred Organization [facility] Referred Provider Davis Cardoso Referred Address [address] [place], [place],[address] Referred Provider Specialty Neurology Referral Priority Routine Additional Source Comments (unrecognized sect ion and content) No Status Records FoundNo Status Records FoundNo Status Records FoundNo Status Records FoundNo Status Records FoundNo Status Records Found INFORMATION SOURCE (unrecogn ized section and content) DATE CREATED AUTHOR 02/03/2019 [facility] DATE CREATED AUTHOR AUTHOR'S ORGANIZ ATION 02/08/2023 [facility] DATE CREATED AUTHOR AUTHOR'S ORGANIZ ATION 02/21/2023 [facility] DATE CREATED AUTHOR AUTHOR'S ORGANIZ ATION 12/28/2023 [facility] DATE CREATED AUTHOR AUTHOR'S ORGANIZ ATION 04/04/2024 [facility] DATE CREATED AUTHOR AUTHOR'S ORGANIZ ATION 04/11/2024 [facility] Care Teams (unrecognized sec tion and content) Team Status: Active Member Role Status Dates Yury Quintanilla MD Primary Care Provider Active Team Status: Inactive Member Role Status Dates Yury Quintanilla MD Primary Care Provider Active Start: April 10, 2024 End: April 10, 2024 Antwon Hastings MD Attending Provider Active Star t: April 10, 2024 End: April 10, 2024 Team Status: Active Member Role Status Dates Yury Quintanilla MD Primary Care Provider Active Start: April 10, 2024 Antwon Hastings MD Attending Provider Active Star t: April 10, 2024 Team Status: Inactive Member Role Status Dates Yury Quintanilla MD Primary Care Provider, Attending Pr ovider Active Team Status: Inactive Member Role Status Dates Temporary Anesthesiologist Attending Provider Active Yury Quintanilla MD Primary Care Provider, Referring Pr ovider Active Team Status: Active Member Role Status Dates Yruy Quintanilla MD Primary Care Provider Active Laura Yu [facility] Emergency Provider Active Antwon Hastings MD Admit Provider, Attending Provider A ctive Team Status: Inactive Member Role Status Dates Yury Quintanilla MD Primary Care Provide r, Attending Provider, Referring Provider Active Team Status: Inactive Member Role Status Dates Yury Quintanilla MD Primary Care Provider Active Laura Yu [facility] Emergency Provider Active Antwon Hastings MD Admit Provider, Attending Provider A ctive Team Status: Inactive Member Role Status Park Quintanilla MD Primary Care Provider Active Antwon Hastings MD Attending Provider Active Team Status: Inactive Member Role Status Dates Yury Quintanilla MD Primary Care Provider Active Antwon [...] Information No data available for this section No data available for this section No data available for this section No data available for this section No data available for this section No data available for this sectionGoals may be documented in an alternate sectionGoals may be documented in an alternate section REASON FOR VISIT (unrecogniz ed section and content) Ref by Dr. Yury Quintanilla for N suki Pain; MRI in [...] BE BASED ON THE PRIMARY CLINICAL RECORDS. [facility] [employer] [facility]. provides no warranty or guarantee of the accuracy or completeness of information in this document.
--- NOTE | 2024-04-24 08:00 | CA_ITS ---
Patient Name: MARY ABURTO MR#: [id number] : 1960 Exam Date: 04/24/2024 Ordering Doctor: KENNEDI MICHELLE CNP ECHOCARDIOGRAM REPORT PROCEDURE: CA ECHO DOPPLER COMPLETE INDICATIONS: Ascending aortic aneurysm COMPARISON: None. DESCRIPTION: COMPLETE ECHOCARDIOGRAM Real-time transthoracic echocardiography with 2D, M-mode, spectral and color flow Doppler performed. QUALITY: Technical quality was good. LEFT VENTRICLE: Normal chamber size. Normal left ventricular wall thickness. Systolic function is at the lower limits of normal. LV EF: Lower limits of normal left ventricular ejection fraction, (50-55%). DIASTOLIC: Diastolic function is indeterminate. ATRIAL SEPTUM: LEFT ATRIUM: Normal chamber size. RIGHT ATRIUM: Mild dilatation. RIGHT VENTRICLE: Normal chamber size. Normal right ventricular systolic function. TRICUSPID VALVE: Normal mobility and thickness. No stenosis with trivial regurgitation. Mild pulmonary hypertension. RVSP 42 mmHg MITRAL VALVE: Normal mobility and thickness. No evidence of mitral valve stenosis. There is no mitral annular calcification. Trivial mitral regurgitation. AORTIC VALVE: Normal trileaflet appearance. No visible sclerosis. Normal leaflet mobility. No evidence of aortic valve stenosis. Trivial aortic regurgitation. AORTIC ROOT: Moderately dilated, measuring 4.3 cm. The ascending aorta is mildly enlarged measuring 4.0 cm. PULMONIC VALVE: Normal thickness and mobility. No stenosis. No regurgitation. PERICARDIUM: No evidence of pericardial effusion. IVC: Collapses with inspirations. Normal size. PLEURA: CONCLUSION: 1. The left ventricle is normal in size with low normal systolic function. LVEF is estimated at 50 to 55%. 2. Normal right ventricular size and systolic function. 3. No significant valvular dysfunction. 4. Mildly elevated right-sided pressures. 5. Moderately dilated aortic root measuring 4.3 cm. Mildly dilated ascending aorta measuring 4.0 cm. Adult Echocardiography Procedure Report Left Ventricle LVEDD (3.7 - 5.6 cm): 4.35 cm LVESD (2.2 - 4.0 cm): 3.35 cm LVIVS thickness (0.6 - 1.2 cm): 0.87 cm LVPW thickness (0.5 - 1.0 cm): 0.72 cm e': 0.08 m/s E - e': 11.12 LVOT Max Gradient: 3.25 mm[Hg] LVOT Area (cm2): 0.90 m/s Peak Velocity (LVOT): 0.90 m/s Mean Velocity (LVOT): 0.62 m/s LVOT Diameter 2.16 cm Left Ventricular Ejection Fraction: 50-55 % Left Atrium LA Volume Index (2D A2C): 23.11 ml/m2 Left Atrium Systolic Dimension: 2.44 cm Mitral Valve MV E to A Ratio: 1.03 Mitral Valve A-Wave Peak Velocity: 0.82 m/s Mitral Valve E-Wave Peak Velocity: 0.85 m/s Right Ventricle RV Internal Diastolic Dimension: 3.62 cm Aorta AO Root Diam: 4.33 cm Ascending Ao Diam: 3.96 cm Aortic Valve AoV Area (Peak Brandon): 3.78 cm2, 3.78 cm2 AoV Area (VTI): 3.62 cm2, 3.62 cm2 Peak Velocity(Antegrade Flow): 0.87 m/s Peak Gradient(Antegrade Flow): 3.03 mm[Hg] Mean Velocity(Antegrade Flow): 0.67 m/s Mean Gradient(Antegrade Flow): 1.91 mm[Hg] Velocity Time Integral: 21.21 cm Tricuspid Valve Peak Velocity (Regurgitant Flow): 3.16 m/s Pulmonic Valve Mean Gradient: 1.01 mm[Hg] Mean Velocity: 0.48 m/s Peak Velocity: 0.63 m/s, 0.53 m/s Peak Gradient: 1.57 mm[Hg], 1.11 mm[Hg] Right Atrium Right Atrium Systolic Pressure: 71.01 ml, 71.01 ml Dictated by: Virgilio Edwards M.D. on 04/24/2024 at 17:51 Approved by: Virgilio Edwards M.D. on 04/24/2024 at 17:55
== END 2024-04-24 07:25 | disposition home or self-care (01) ==
LOC: CARD 07:24
PROVIDERS: PCP Family Medicine; Visit Provider Nurse Practitioner Family
DX: I71.20 Thoracic aortic aneurysm, without rupture, unspecified (principal); I71.21 Aneurysm of the ascending aorta, without rupture
CPT/HCPCS: 93306

== ENCOUNTER 2024-06-06 09:54 | Outpatient (OUT) | payer OTHER, SELFPAY ==
--- OUTSIDE RECORDS SUMMARY | 2024-06-06 10:10 | XMS_ITS | CCD ---
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, [facility]- Laura Del Castillo Emergency Provider MD Antwon Hastings Admit Provider MD Antwon Hastings Attending Provider [phone] Antwon Hastings Unavailable Lele Fong Unavailable MD Yury Quintanilla Primary Care Provider [phone] MD Yury Quintanilla Primary Care Provider [phone] MD Antwon Hastings Attending Provider [phone] MD Yury Quintanilla Primary Care Provider [phone] MD Antwon Hastings Attending Provider [phone] Dr. Rigo Hughes Attending Unava ilable DR ANTWON HASTINGS Admitting Unavailable DR ANTWON HASTINGS Attending Unavailable JANE ., DR HADDAD Primary Care Unavailable THAIS, DR SAMANTA Millan Consulting Unavailable DR ANTWNO HASTINGS Consulting Unavailable JANE .DR HADDAD Admitting Unavailable HOY ., DR HADDAD Attending Unavailable HOY ., DR HADDAD Primary Care Unavailable HOY ., DR HADDAD Consulting Unavailable BRANDONY ., DR HADDAD Admitting Unavailable HOY ., DR HADDAD Attending Unavailable HOY ., DR HADDAD Primary Care Unavailable HOY ., DR HADDAD Consulting Unavailable BRANDONY ., DR HADDAD Admitting Unavailable HOY ., DR HADDAD Attending Unavailable HOY ., DR HADDAD Primary Care Unavailable HOY ., DR HADDAD Consulting Unavailable BATAVIA, DR SAMANTA Millan Consulting Unavailable HOY ., [...] Unavailable HOY ., DR HADDAD Consulting Unavailable ROGGEN ., DR PIERCE Consulting Unavailable JEAN PIERRE, JOHNY Consulting Unavailable MOIZ BROWNING Consulting Unavailable SAMANTA JENNINGS Unavailable MD Yury Quintanilla Primary Care Provider [phone] MD Antwon Hastings Attending Provider [phone] MD Antwon Hastings Admit Provider MD Yury Quintanilla Primary Care Provider [phone] MD Antwon Hastings Attending Provider [phone] Yury Quintanilla Primary Care Physician [phone] MD Yury Quitnanilla Primary Care Provider [phone] MD Antwon Hastings Attending Provider [phone] Yury Quintanilla Primary Care Unavailable Antwon Hastings Attending Unavailable Antwon Hastings Admitting Unavailable Antwon Hastings Admitting Unavailable Yury Quintanilla Primary Care Unavailable Antwon Hastings Attending Unavailable Yury Quintanilla Primary Care Unavailable Antwon Hastings Attending Unavailable Antwon Hastings Admitting Unavailable THEODORA BANKS Attending Unavailable KENNEDI MICHELLE Attending Unavailable Damián Estrada Admitting Unavailable NONE, XXXX Referring Unavailable Damián Estrada Attending Unavailable Damián Estrada Attending Unavailable Damián Estrada Admitting Unavailable Antwon Hastings Referring Unavailable Damián Estrada Referring Unavailable Damián Estrada Admitting Unavailable Damián Estrada Attending Unavailable Damián Estrada Referring Unavailable DO Damián Estrada Admitting UnavailDamián Chen Attending Unavailable DO Damián Estrada Admitting Yury lFores Referring Unavailable Damián Estrada Attending Unavailable Allergies Allergy Classification Reported Allergen(s) Allergy Type Date of Onset Reaction(s) Facility penicillAMINE (1 source) penicillAMINE Drug Allergy 04-10-20 24 [facility] Repository Penicillins (antibiotic) (1 source) Penicillins Drug Allergy 02-13-20 23 [facility] Repository Sulfonamides (antibiotic) (2 sources) Sulfonamides (Antibiotic); Translations: [sulfacetamide] Drug Allergy 02-13-20 23 [facility] Repository Sulfur (1 source) Sulfur Drug Allergy 04-10-20 24 [facility] Repository (3 sources) Ibuprofen; Translations: [IBUPROFEN] Drug Allergy 09-26-20 16 [facility] Repository (15 sources) Penicillins; Translations: [PENICILLINS] Drug allergy (disorder) 09-08-20 09 [facility] Repository (15 sources) Sulfonamides (Antibiotic); Translations: [SULFA (SULFONAMIDE ANTIBIOTICS)] Drug allergy (disorder) 03-18-20 13 [facility] Repository (20 sources) penicillAMINE Drug Allergy 04-10-20 24 Unknown, Unknown Reaction [facility] (20 sources) Sulfacetamide / Sulfur Drug Allergy Unknown [facility] Other (8 sources) Penicillin; Translations: [penicillin] Drug Allergy Eruption of skin (disorder) [facility] (8 sources) Sulfonamides (Antibiotic); Translations: [sulfa drugs] Drug allergy Eruption of skin (disorder) [facility] (2 sources) Sulfacetamide Drug Allergy 04-10-20 24 Unknown Reaction [facility] (2 sources) Sulfur Drug Allergy 04-10-20 24 Unknown Reaction [facility] (1 source) No Known Medication Allergies; Translations: [No Known Medication Allergies] Propensity to adverse reactions (disorder) [facility] Repository Medications Current Medications Medication Drug [...] Inhibitor, Nonsteroidal Anti-inflammatory Drug Start: 09-10-2019 take 1 tablet by mouth once daily aspirin 81 mg oral tablet 81 mg = 1 tab(s), Oral, Daily Start Date: 09/10/19 Status: Ordered take 1 [...] Start: 09-10-2019 take 1 tablet by jacquie twice daily gabapentin 600 mg Tab 600 [...] (20 sources) beta-Adrenergic Nicolasa Start: 09-10-2019 take 1 tablet by mouth twice daily Metoprolol tartrate 25 mg Tab 25 mg = 1 tab(s), Oral, BID Start Date: 09/10/19 Status: Ordered take 1 capsule by mouth once can ly Metoprolol Succinate 25 MG 1 capsule Orally Once a day Active oxaprozin 600 mg oral tablet (20 sources) Nonsteroidal Anti-inflammatory Drug Start: 10-18-2023 take 2 tablets by mouth once daily oxaprozin 600 mg Tab 1,200 mg = 2 tab(s), Oral, Daily, Refills(s) 0 Start Date: 10/18/23 Status: Ordered take 2 tablets by mo uth once daily as needed Oxaprozin 600 MG [...] 3 days simvastatin 40 mg oral tablet (7 sources) HMG-CoA Reductase Inhibitor Start: 09-10-2019 take [...] 0.5 MG PO Three times daily 42 March 02, 2022 12:00am February 12, 2023 9:02am Problems Active Problems Problem Classification Problem Date Documented Date Episodic/Chronic Anxiety disorders (1 source) Anxiety disorder, unspecified; Translations: [ANXIETY DISORDER UNSPECIFIED] Onset: 02-20-2023 Chronic Cardiac dysrhythmias (3 sources) Tachycardia, unspecified; Translations: [Palpitations] Onset: 04-19-2022 Episodic Chronic obstructive pulmonary disease and bronchiectasis (1 source) Chronic obstructive pulmonary disease, unspecified; Translations: [COPD UNSPECIFIED] Onset: 02-20-2023 Chronic Coronary atherosclerosis and other heart disease (2 sources) Atherosclerotic heart disease of [place] coronary artery without angina pectoris; Translations: [Atherosclerotic heart disease of [place] coronary artery without angina pectoris] Onset: 05-19-2024 Chronic Diseases of white blood cells (1 source) Elevated white blood cell count, unspecified; Translations: [ELEVATED WHITE BLOOD CELL COUNT UNS] Onset: 04-19-2022 Chronic Disorders of lipid metabolism (4 sources) Hyperlipidemia, unspecified; Translations: [Mixed hyperlipidemia] Onset: 01-21-2019 Chronic Essential hypertension (4 sources) Essential (primary) hypertension; Translations: [ESSENTIAL (PRIMARY) [...] Resolved: 02-23-2022 Episodic Other aftercare (2 sources) 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; Translations: [SECURITY DIRECTOR (CURRENT) USE OF ASPIRIN] Onset: 01-21-2019 Episodic Other aftercare (1 source) superintendent [employer] (current) use of anticoagulants; Translations: [SECURITY DIRECTOR CURRNT USE ANTICOAGULANTS] Onset: 02-20-2023 Episodic Other aftercare (1 source) Other [facility] (current) drug therapy; Translations: [OTH SNF CURRENT DRUG THERAPY] Onset: 02-20-2023 Episodic Other [...] W/AND (SUSP) EXPOS COVID-19] Onset: 04-19-2022 Unclassified (7 sources) Patient encounter status 09-10-2019 Unclassified (1 source) Spondylolisthesis, cervical region; Translations: [Spondylolisthesis, cervical region] Onset: 05-22-2023 Unclassified (1 source) Aneurysm of the ascending aorta, without rupture; Translations: [Aneurysm of the ascending aorta, without rupture] Onset: 05-19-2024 Past or Other Problems Problem Classification Problem Date Documented Da te Episodic/Chronic Deficiency and other anemia (1 source) Anemia, unspecified; Translations: [ANEMIA UNSPECIFIED] Onset: 06-12-2022 Episodic Diabetes mellitus without complication (1 source) Other abnormal glucose; Translations: [OTHER ABNORMAL GLUCOSE] Onset: 06-12-2022 Episodic Epilepsy; convulsions (1 source) Unspecified convulsions; Translations: [UNSPECIFIED CONVULSIONS] Onset: 06-12-2022 Episodic Nonspecific chest pain (11 sources) Chest pain, [...] HISTORY OF NICOTINE DEPENDENCE] Onset: 01-21-2019 Episodic Unclassified (1 source) Aneurysm of the ascending aorta, without rupture; Translations: [Aneurysm of the ascending aorta, without rupture] Onset: 05-19-2024 Results Test Name Value Interpretation Reference Range Facility Main OR Preoperative Recordo n 05-26-2024 Main OR Preoperative Record Main OR Preoperative Record Holding Area Document Type FTPM Summary Primary Physician: Damián Estrada DO Finalized Date/Time: 05/26/24 08:13:25 Pt. Name: MARY ABURTO/Sex: 1960 Male Med Rec #: [id number] Physician: Damián Estrada DO Financial #: [id number] Pt. Type: P Room/Bed: / Admit/Disch: 05/26/24 07:40:46 - Institution: Case Times Holding FTPM Pre-Care Text: Verifies consent for planned procedure, identifies individual values and wishes concerning care, includes family members in perioperative teaching Secures patient's records' belongings, and valuables, maintains patient's dignity and privacy, and maintains patient confidentiality Entry 1 In Holding 05/26/24 07:43:00 Outcomes Met? Yes Last Modified By: Jessa Moya RN 05/26/24 07:43:24 Post-Care Text: The patient participates in decisions affecting his or her perioperative plan of care The patient's right to privacy is maintained Surgery Checklist FTPM Entry 1 Patient Birthday, ID Band Procedure History and Physical, Identification: Check, Patient Verification: Surgical Consent, With Participation Patient NPO after Midnight: Yes Date/Time: 05/26/24 07:43:00 Results Reviewed N/A Personal Items: Dentures, Glasses, Comments: Jewelry Personal Items Pt. wearing two rings, Complaints of Pain: Yes Comment: glasses. upper dentures and a watdh. Pain Comment: 08/07 thoracic pain Operative Site Yes Marking: Marked By: Dr. Estrada Location: T2-T3 Availability X-Ray Verified: Does Patient Smoke No Patient states Yes Comment - Adult -Helio postop adult Supervision supervision available Case Cancelled in No Case Cancelled Case cancelled due to Holding Area see Comment pt. taking Oxaprozin comments below for this morning. reason Last Modified By: Jessa Moya RN 05/26/24 08:13:24 Finalized By: Jessa Moya RN Document Signatures Signed By: Jessa Moya RN 05/26/24 07:45 Jessa Moya RN 05/26/24 08:13 Normal [facility] Office Visiton 05-19-2024 Follow-up visit [id number] Mary Aburto 1960 M Date Provider Department Center 05/19/2024 Aylin-THEODORA BANKS Family History Problem Relation Age of Onset Diabetes Mother Lung cancer Father Lung cancer Sister Family Status - Relation Status Age at Mother Father Sister Level of Service:92220 MO OFFICE/OUTPATIENT ESTABLISHED MOD MDM 30 MIN Normal [facility] Patient Correspondenceon Patient Correspondence [id number]#1.00TIFF Normal [facility] XR cerv spine AP/LAT/FLX/EXT on 04-10-2024 XR cerv spine AP/LAT/FLX/EXT [facility] [place] [address] XRay Report Signed Patient: Mary Aburto MR#: [id number] : 1960 Acct:[id number] Age/Sex: 64 / M ADM Date: 04/10/24 Loc: XD Room: Type: [facility] CLI Attending Dr: Antwon Hastings MD Copies to: [...] Nguyễn Patel M.D.04/10/2024 9:13 AM Dictation Location: [place] [address] Transcribed By: [facility] 04/10/24912 Dictated By: Nguyễn Patel DO 04/10/24 0911 Signed By: 04/10/24 0913 Normal [facility] Office/Clinic Note-Physician on 04-03-2024 Office/Clinic Note-Physician [id number]#1.00TIFF Normal [facility] Office/Clinic Note-Nurseon 0 04-01-2024 Office/Clinic Note-Nurse [id number]#1.00TIFF Normal [facility] Consent for Treatmenton 0 Consent for Treatment [id number]#1.00TIFF Normal [facility] Consultation Noteon 02-28-20 24 Consultation Note Patient is presentin g as [...] with any questions or concerns that arise. [facility] Comment on above: Result Comment: Elec tronically Signed By: Damián Estrada DO.br\Date and Time Signed: 02/28/24 16:01 EDT Office/Clinic Note-Physician on 02-28-2024 Office/Clinic Note-Physician [id number]#1.00TIFF [facility] Patient Correspondenceon Patient Correspondence [id number]#1.00TIFF [facility] Patient Correspondence [id number]#1.00TIFF [facility] Patient History Officeon Patient History Office [id number]#1.00TIFF [facility] Consent for Treatmenton Consent for Treatment [id number]#1.00TIFF [facility] Consent for Procedure/Surger yon 01-23-2024 Consent for Procedure/Surgery [id number]#1.00TIFF Normal [facility] Consent for Treatmenton 12-28 Consent for Treatment [id number]#1.00TIFF Normal [facility] Discharge Instructionson Discharge Instructions [id number]#1.00TIFF Normal [facility] IntraOperative Documentson 0 01-23-2024 IntraOperative Documents [id number]#1.00TIFF Normal [facility] IntraOperative Documents [id number]#1.00TIFF Normal [facility] IntraOperative Documents [id number]#1.00TIFF Normal [facility] Main OR Intraoperative Recor don 01-23-2024 Main OR Intraoperative Record IntraOp Document Type FTPM Summary Primary Physician: Damián Estrada DO Finalized Date/Time: 01/23/24 15:08:46 Pt. Name: MARY ABURTO/Sex: 1960 Male Med Rec #: [id number] Physician: Damián Estrada DO Financial #: [id number] Pt. Type: P Room/Bed: / Admit/Disch: 01/23/24 14:25:44 - Institution: Case Times FTPM Entry 1 Patient Times In Room 01/23/24 14:54:00 Out Room 01/23/24 15:09:00 Procedure Times Start 01/23/24 14:57:00 Stop 01/23/24 15:08:00 Anesthesia Times Last Modified By: Sixto POLK, Ernestine River 01/23/24 15:08:42 Case Attendance FTPM Entry 1 Entry 2 Entry 3 Case Attendee Damián Estrada DO, RN, Ernestine Sue RN, [facility] Role Performed Surgeon - Primary Forwarder Operator - Primary Scrub - Primary Time In 01/23/24 14:54:00 01/23/24 14:54:00 01/23/24 14:54:00 Time Out 01/23/24 15:09:00 01/23/24 15:09:00 01/23/24 15:09:00 Procedure INTERLAMINAR EPIDURAL INTERLAMINAR EPIDURAL INTERLAMINAR EPIDURAL STEROID INJECTION(.) STEROID INJECTION(.) STEROID INJECTION(.) Comments Last Modified By: Ernestine Henson RN, RN, Ernestine Hightower RN 01/23/24 15:08:43 01/23/24 15:08:43 01/23/24 15:08:43 Entry 4 Case Attendee Jordana Joe (R) Role Performed Preparation Room Worker Time In 01/23/24 14:54:00 Time Out 01/23/24 [...] RN, Sean Jefferson DO, Bradford A., Christman RT(R)Jordana Time Out Complete 01/23/24 14:54:00 Outcomes Met? [...] and tissue Entry 1 Skin Integrity Intact, [place], Warm, and Skin Abnormality No Dry Outcomes [...] By R (more content not included)... Normal [facility] Main OR Preoperative Recordo n 01-23-2024 Main OR Preoperative Record Holding Area Document Type FT Summary Primary Physician: Damián Estrada DO Finalized Date/Time: 01/23/24 14:30:44 Pt. Name: MARY ABURTO Bandar NguyenB./Sex: 1960 Male Med Rec #: [id number] Physician: Damián Estrada DO Financial #: [id number] Pt. Type: P Room/Bed: / Admit/Disch: 01/23/24 [...] Complaints of Pain: Yes Comment: Pain Comment: 810 mid back pain Operative Site Yes Marking: Marked By: Dr Estrada Location: T1/2 RUBENS Availability Equipment, X-Ray Verified: Does Patient Smoke No Patient states Yes Comment - Adult -helio postop adult Supervision supervision available Case Cancelled in No Holding Area see comments below for reason Last Modified By: Sayra Maurice RN 01/23/24 14:30:38 Finalized By: Sayra Maurice RN Document Signatures Signed By: Sayra Maurice RN 01/23/24 14:30 [facility] Patient Correspondenceon Patient Correspondence [id number]#1.00TIFF [facility] Office/Clinic Note-Physician on 12-21-2023 Office/Clinic Note-Physician [id number]#1.00TIF F Normal [facility] Office Visiton 12-20-2023 Follow-up visit [id number] Mary Aburto P 1960 M Date Provider Department Center 12/20/2023 KENNEDI PEREZ FADY Leija Family History Problem Relation Age of Onset Diabetes Mother Lung cancer Father Lung cancer Sister Family Status - Relation Status Age at Mother Father Sister Level of Service:25157 MO OFFICE/OUTPATIENT ESTABLISHED MOD MDM 30 MIN Reason for Visit and Comments: Coronary Artery Disease [187] Hypertension [250947] Hyperlipidemia [182] Normal [facility] Orders Onlyon 12-20-2023 Orders Only [id number] Mary Aburto P 1960 M Date Provider Department Center 12/20/2023 BLAISE MEDRANO FADY Leija Family History Problem Relation Age of Onset Diabetes Mother Lung cancer Father Lung cancer Sister Family Status - Relation Status Age at Mother Father Sister Normal [facility] Consent for Treatmenton Consent for Treatment [id number]#1.00TIFF Normal [facility] Consultation Noteon 12-06-19 Consultation Note Patient is presentin g with complaints of neck pain that he [...] 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 [facility] Comment on above: Result Comment: Elec tronically Signed By: Damián Estrada DO\.br\Date and Time Signed: 12/06/23 10:46 EST Legal Correspondence Officeo n 12-06-2023 Legal Correspondence Office [id number]#1.00TIFF Normal [facility] Office/Clinic Note-Nurseon 0 12-06-2023 Office/Clinic Note-Nurse [id number]#1.00TIFF Normal [facility] Office/Clinic Note-Physician on 12-06-2023 Office/Clinic Note-Physician [id number]#1.00TIFF Normal [facility] Patient Correspondenceon Patient Correspondence [id number]#1.00TIFF Normal [facility] Patient Correspondence [id number]#1.00TIFF Normal [facility] Patient Correspondence [id number]#1.00TIFF Normal [facility] Patient Correspondence [id number]#1.00TIFF Normal [facility] Patient History Officeon Patient History Office [id number]#1.00TIFF Normal [facility] 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 12-04-2023 Radiology Outside Office Copy [id number]#1.00TIFF Normal [facility] Physician Orderon 11-28-2023 Physician Order [id number]#1.00TIF F Normal [facility] Physician Orderon 11-20-2023 Physician Order [id number]#1.00TIFF Normal [facility] 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 Comments: 09/10/2019 12:[address] Collar bone ([id number]). Cervical laminectomy ([id number]). Physical Examination Vital Signs (last 24 hrs) Last Charted Heart Rate Peripheral L 58bpm (OCT 18:49) SBP 108 mmHg (OCT 18:) DBP 80 mmHg (OCT 18:) Weight 63.50 kg (OCT 18:) BMI 20.09 (OCT 18:49) General: No acute [...] upper extremities with the exception of 4/5 brazer production line strength on the right. 5/5 strength grossly [...] on joints. P (more content not included)... [facility] Comment on above: Result Comment: Elec tronically Signed By: Damián Estrada DO.br\Date and Time Signed: 10/18/23 15:50 EST HIPAA Forms Officeon 023 HIPAA Forms Office [id number]#1.00TIFF [facility] Insurance Correspondenceon 1 12-19-2022 Insurance Correspondence [id number]#1.00TIFF [facility] Insurance Correspondence [id number]#1.00TIFF [facility] Legal Correspondence Officeo n 10-18-2023 Legal Correspondence Office [id number]#1.00TIFF [facility] Legal Correspondence Office [id number]#1.00TIFF [facility] Office/Clinic Note-Physician on 10-18-2023 Office/Clinic Note-Physician [id number]#1.00TIFF [facility] Outside Records Officeon Outside Records Office [id number]#2.00TIFF Normal [facility] Patient Correspondenceon Patient Correspondence [id number]#1.00TIFF Normal [facility] Patient Correspondence [id number]#1.00TIFF Normal [facility] Patient Correspondence [id number]#1.00TIFF Normal [facility] Patient Correspondence [id number]#1.00TIFF Normal [facility] Patient Correspondence [id number]#1.00TIFF Normal [facility] Patient History Officeon Patient History Office [id number]#1.00TIFF Normal [facility] Patient History Office [id number]#1.00TIFF Normal [facility] Physician Orderon 10-18-2023 Physician Order [id number]#1.00TIFF Normal [facility] 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 10-18-2023 Radiology Outside Office Copy [id number]#1.00TIFF Normal [facility] Radiology Outside Office Copy [id number]#1.00TIFF Normal [facility] Radiology Outside Office Copy [id number]#[id number] Normal [facility] Radiology Outside Office Copy [id number]#[id number] Normal [facility] Radiology Outside Office Copy [id number]#[id number] Normal [facility] Referrals Officeon 3 Referrals Office [id number]#1.00TIFF Normal [facility] XR cerv spine AP/LAT/FLX/EXT on 08-14-2023 XR cerv spine AP/LAT/FLX/EXT [facility] [place] [address] XRay Report Signed Patient: Mary Aburto MR#: [id number] : 1960 Acct:[id number] Age/Sex: 63 / M ADM Date: 08/14/23 Loc: XD Room: Type: [facility] Attending Dr: Antwon Hastings MD Copies [...] Thomas Justice M.D.08/14/2023 6:49 PM Dictation Location: [place] [address] Transcribed By: [facility] 08/14/231848 Dictated By: Thomas Justice II, MD 08/14/231842 Signed By: 08/14/231848 Normal [facility] XR cerv spine AP/LAT/FLX/EXT on 05-22-2023 XR cerv spine AP/LAT/FLX/EXT [facility] [place] [address] XRay Report Signed Patient: Mary Aburto MR#: [id number] : 1960 Acct:[id number] Age/Sex: 63 / M ADM Date: 05/22/23 Loc: XD Room: [facility] Att[facility] Dr: Antwon Hastings MD Copies to: [...] COMPLICATION. Impression dictated by: Jorge Dimas Jr., D.OAnya05/22/2023 3:31 PM Dictation Location: [place] [address] Transcribed By: [facility] 05/22/23 1531 Dictated By: Jorge Dimas Jr, DO 05/22/23 1530 Signed By: 05/22/23 1531 Normal [facility] Amphetamine Screen Ql (U)Ord ered By: Jaime Trujillo on 02-12-2023 Amphetamines Ql (U) Negative Negative [facility] Barbiturates [Presence] in U rine by Screen methodOrdered By: Jaime Trujillo on 02-12-2023 Barbiturates Screen Ql (U) Negative Negative [facility] Benzodiazepines Screen Ql (U )Ordered By: Jaime Trujillo on 02-12-2023 Benzodiazepines Ql (U) Negative Negative [facility] Benzoylecgonine [Presence] i n Urine by Screen methodOrdered By: Jaime Trujillo on 02-12-2023 Benzoylecgonine Screen Ql (U) Negative Negative [facility] Cannabinoids [Presence] in U rine by Screen methodOrdered By: Jaime Trujillo on 02-12-2023 Cannabinoids Screen Ql (U) Positive Negative [facility] Comment on above: These are unconfirme d results and should not be used for legal purposes. Drug Cut-Off Concentration: AMPH 1000 ng/mL SAMARIA 200 ng/mL ARJUN 200 ng/mL COCM 300 ng/mL OP 300 ng/mL PCP 25 ng/mL THC 20 ng/mL Opiates [Presence] in Urine by Screen methodOrdered By: Jaime Trujillo on 02-12-2023 Opiates Screen Ql (U) Positive Negative [facility] Phencyclidine Screen Ql (U)O rdered By: Jaime Trujillo on 02-12-2023 Phencyclidine Ql (U) Negative Negative [facility] Basophils Auto (Bld) [#/Vol] Ordered By: Antwon Hastings on 01-29-2023 Basophils (Bld) [#/Vol] 0.1 10*3/uL 0.0-0.2 [facility] Basophils/100 WBC Auto (Bld) Ordered By: Antwon Hastings on 01-29-2023 Basophils/100 WBC (Bld) 0.8 % . [facility] Calcium [Mass/volume] in Ser um or PlasmaOrdered By: Antwon Hastings on 01-29-2023 Calcium [Mass/Vol] 8.9 mg/dL 8.6-10.3 [facility] Carbon dioxide, total [Moles /volume] in Serum or PlasmaOrdered By: Antwon Hastings on 01-29-2023 CO2 [Moles/Vol] 27.7 mmol/L 21.0-31.0 [facility] Chloride [Moles/volume] in S serena or PlasmaOrdered By: Antwon Hastings on 01-29-2023 Chloride [Moles/Vol] 105 mmol/L 98-107 [facility] Creatinine [Mass/volume] in Serum or PlasmaOrdered By: Antwon Hastings on 01-29-2023 Creatinine [Mass/Vol] 0.92 mg/dL 0.70-1.30 [facility] Eosinophils Auto (Bld) [#/Vo l]Ordered By: Antwon Hastings on 01-29-2023 Eosinophils (Bld) [#/Vol] 0.2 10*3/uL 0.0-0.45 [facility] Eosinophils/100 WBC Auto (Bl d)Ordered By: Antwon Hastings on 01-29-2023 Eosinophils/100 WBC (Bld) 2.8 % . [facility] Erythrocyte distribution wid th Auto (RBC) [Ratio]Ordered By: Antwon Hastings on 01-29-2023 Erythrocyte distribution width (RBC) [Ratio] 12.8 % 12.0-14.8 [facility] Glucose [Mass/volume] in Ser um or PlasmaOrdered By: Antwon Hastings on 01-29-2023 Glucose [Mass/Vol] 92 mg/dL 70-100 [facility] Comment on above: ADA recommended refe rence rangeRandom Glucose Reference Range is dependent on time and content of last meal. Glucose of more than 200 mg/dL in a nonstressed, ambulatory subject supports the diagnosis of Diabetes Mellitus. Hematocrit Auto (Bld) [Volum e fraction]Ordered By: Antwon Hastings on 01-29-2023 Hematocrit (Bld) [Volume fraction] 42.1 % 38.8-50.0 [facility] Hemoglobin [Mass/volume] in BloodOrdered By: Antwon Hastings on 01-29-2023 Hemoglobin (Bld) [Mass/Vol] 14.4 g/dL 13.0-17.0 [facility] Leukocytes [#/volume] correc carlos for nucleated erythrocytes in Blood by Automated counOrdered By: Antwon Hastings on 01-29-2023 WBC corrected for nucl RBC Auto (Bld) [#/Vol] 7.4 10*3/uL 4.1-10.5 [facility] Lymphocytes Auto (Bld) [#/Vo l]Ordered By: Antwon Hastings on 01-29-2023 Lymphocytes (Bld) [#/Vol] 2.0 10*3/uL 1.00-4.8 [facility] Lymphocytes/100 WBC Auto (Bl d)Ordered By: Antwon Hastings on 01-29-2023 Lymphocytes/100 WBC (Bld) 27.3 % . [facility] MCH Auto (RBC) [Entitic mass ]Ordered By: Antwon Hastings on 01-29-2023 MCH (RBC) [Entitic mass] 34.0 pg 27.5-35.2 [facility] MCHC Auto (RBC) [Mass/Vol]Or dered By: Antwon Hastings on 01-29-2023 MCHC (RBC) [Mass/Vol] 34.1 g/dL 32.5-35.6 [facility] MCV Auto (RBC) [Entitic vol] Ordered By: Antwon Hastings on 01-29-2023 MCV (RBC) [Entitic vol] 99.8 fL 83.5-101 [facility] Monocytes Auto (Bld) [#/Vol] Ordered By: Antwon Hastings on 01-29-2023 Monocytes (Bld) [#/Vol] 0.8 10*3/uL 0.0-0.8 [facility] Monocytes/100 WBC Auto (Bld) Ordered By: Antwon Hastings on 01-29-2023 Monocytes/100 WBC (Bld) 11.1 % . [facility] Neutrophils Auto (Bld) [#/Vo l]Ordered By: Antwon Hastings on 01-29-2023 Neutrophils (Bld) [#/Vol] 4.3 10*3/uL 1.8-7.7 [facility] Neutrophils/100 WBC Auto (Bl d)Ordered By: Antwon Hastings on 01-29-2023 Neutrophils/100 WBC (Bld) 58.0 % . [facility] No Panel InformationOrdered By: Antwon Hastings on 01-29-2023 Estimated GFR (CKD-EPI) > 60.0 mL/Min [facility] Creatinine Clearance (Chem N/A [facility] Nucleated erythrocytes [Pres ence] in Blood by Automated countOrdered By: Antwon Hastings on 01-29-2023 Nucleated RBC Auto Ql (Bld) 0.2 /100{WBC} 0-0.5 [facility] Platelet mean volume Auto (B ld) [Entitic vol]Ordered By: Antwon Hastings on 01-29-2023 Platelet mean volume (Bld) [Entitic vol] 7.2 fL 6.6-10.1 [facility] Platelets Auto (Bld) [#/Vol] Ordered By: Antwon Hastings on 01-29-2023 Platelets (Bld) [#/Vol] 281 10*3/uL 150-450 [facility] Potassium [Moles/volume] in Serum or PlasmaOrdered By: Antwon Hastings on 01-29-2023 Potassium [Moles/Vol] 4.6 mmol/L 3.5-5.1 [facility] RBC Auto (Bld) [#/Vol]Ordere d By: Antwon Hastings on 01-29-2023 RBC (Bld) [#/Vol] 4.22 10*6/uL 3.90-5.60 [facility] Serum or plasma anion gap de terminationOrdered By: Antwon Hastings on 01-29-2023 Anion gap [Moles/Vol] 7.9 mmol/L 6.0-15.0 [facility] Sodium [Moles/volume] in Ser um or PlasmaOrdered By: Antwon Hastings on 01-29-2023 Sodium [Moles/Vol] 136 mmol/L 136-145 [facility] Urea nitrogen [Mass/volume] in Serum or PlasmaOrdered By: Antwon Hastings on 01-29-2023 Urea nitrogen [Mass/Vol] 11 mg/dL 7-25 [facility] WBC Auto (Bld) [#/Vol]Ordere d By: Antwon Hastings on 01-29-2023 WBC (Bld) [#/Vol] 7.4 10*3/uL 4.1-10.5 [facility] Creatinine (Bld) [Mass/Vol]O rdered By: Antwon Hastings on 12-25-2022 Creatinine [Mass/Vol] 1.3 mg/dL 0.6-1.3 [facility] Comment on above: ER/ESD physician is notified/shown all ISTAT results.Critical values may be confirmed by laboratory testing ifdeemed necessary by ER attending doctor. MR cervical spine wo/w conon 12-25-2022 MR cervical spine wo/w con [facility] [employer] Other MR cervical spine wo/w con [facility] [employer] Other MR cervical spine wo/w con [address] [employer] Other MR cervical spine [place] [address] [employer] Other MR cervical spine wo/w con MRI Report [employer] Other MR cervical spine wo/w con Signed [employer] Other MR cervical spine wo/w con Patient: Mary Aburto MR#: [id number] [employer] Other MR cervical spine wo/w con : 1960 Acct:[id number] [employer] Other MR cervical spine wo/w con Age/Sex: 62 / M ADM Date: 12/25/22 [employer] Other MR cervical spine wo/w con Loc: Room: Type: [facility] [employer] Other MR cervical spine wo/w con Attending Dr: Antwon Hastings MD [employer] Other MR cervical spine wo/w con Copies to: Antwon Hastings MD [employer] Other MR cervical spine wo/w con Ordering Provider: Antwon Hastings MD [employer] Other MR cervical spine wo/w con Date of Service: 12/25/22 [employer] Other MR cervical spine wo/w con MR/MR cervical spine wo/w con: M47.12 [employer] Other MR cervical spine wo/w con MR cervical spine wo/w con 12/25/2022 1:56 PM [employer] Other MR cervical spine wo/w con SIGNS AND SYMPTOMS: Severe neck pain radiating down right arm with weakness, tingling, and numbness [employer] Other MR cervical spine wo/w con PROTOCOL: Multiplanar multisequence MR images of the cervical spine were obtained with and without [employer] Other MR cervical spine wo/w con IV contrast [employer] Other MR cervical spine wo/w con CONTRAST: 13 mL of intravenous ProHance [employer] Other MR cervical spine wo/w con COMPARISON: 10/23/2022 and 02/08/2022 [employer] Other MR cervical spine wo/w con FINDINGS: There is straightening and mild reversal of the normal cervical lordosis. The bones are in [employer] Other MR cervical spine wo/w con anatomic alignment otherwise. There is preservation of vertebral body heights. There is posterior [employer] Other MR cervical spine wo/w con fusion and decompression from C2 through C5. There is anterior fusion hardware from C5 through T1. [employer] Other MR cervical spine wo/w con There is no change in alignment. The marrow signal is within normal limits. The cord is normal in [employer] Other MR cervical spine wo/w con signal. No epidural or paraspinous fluid collection is appreciated. The visualized paraspinous soft [employer] Other MR cervical spine wo/w con tissues are within normal limits. The prevertebral soft tissues are within normal limits. There is [employer] Other MR cervical spine wo/w con no abnormal postcontrast enhancement. [employer] Other MR cervical spine wo/w con At C2-C3: There is a normal disc, central canal, and neural foramen. [employer] Other MR cervical spine wo/w con At C3-C4: There is a normal disc, central canal, and neural foramen. [employer] Other MR cervical spine wo/w con At C4-C5: There is facet hypertrophy with mild uncovertebral joint spurring contributing to moderate [employer] Other MR cervical spine wo/w con neural foraminal narrowing bilaterally. No spinal canal narrowing. [employer] Other MR cervical spine wo/w con At C5-C6: There is facet hypertrophy with mild uncovertebral joint spurring contributing to mild [employer] Other MR cervical spine wo/w con At C6-C7: There is facet hypertrophy with mild uncovertebral joint spurring contributing to moderate [employer] Other MR cervical spine wo/w con At C7-T1: There is a broad-based disc bulge with facet and negative joint degenerative change [employer] Other MR cervical spine wo/w con contributing to moderate to severe bilateral neural foraminal narrowing with mild spinal canal [employer] Other MR cervical spine wo/w con narrowing. [employer] Other MR cervical spine wo/w con MR/MR cervical spine wo/w con [employer] Other MR cervical spine wo/w con IMPRESSION: [employer] Other MR cervical spine wo/w con There is posterior fusion and decompression from C2 through C5. There is anterior fusion hardware [employer] Other MR cervical spine wo/w con from C5 through T1. There is no change in alignment. [employer] Other MR cervical spine wo/w con Degenerative changes contribute to neural foraminal narrowing bilaterally from C4-C5 through the C7- [employer] Other MR cervical spine wo/w con T1 levels. Neural foraminal narrowing appears to be greatest at C4-C5. [employer] Other MR cervical spine wo/w con No evidence of cord compression or cord signal abnormality. [employer] Other MR cervical spine wo/w con Impression dictated by: Thomas Justice M.D.12/25/2022 5:05 PM [employer] Other MR cervical spine wo/w con Dictation Location: [place] [address] [employer] Other MR cervical spine wo/w con Transcribed By: PWS 12/25/22 1701 [employer] Other MR cervical spine wo/w con Dictated By: Thomas Justice II, MD 12/25/22 1653 [employer] Other MR cervical spine wo/w con Signed By: [employer] Other MR cervical spine wo/w con 12/25/22 1707 [employer] Other No Panel InformationOrdered By: Antwon Hastings on 12-25-2022 POC Estimated GFR > 60 [facility] Comment on above: GFR estimated refere nce range: According to KDOQI guidelines, <60 ml/min/1.73m2 is sufficient to diagnose a patient with chronic kidney disease. POC Estimated GFR Non- Amer 56 [facility] CBC AUTO DIFFon 11-13-2022 BASO # 0.0 103/ul Normal 0.0-0.1 [facility] Comment on above: Performed By: #### C BC #### [facility] [address] [place] [address] Dr. Edilson Mortensen Basophils/100 WBC (Bld) 0.4 % Normal 0.2-2.0 [facility] Comment on above: Performed By: #### C BC #### [facility] [address] [place] [address] [address] Edilson Mortensen EO # 0.2 103/ul Normal 0.0-0.7 [facility] Comment on above: Performed By: #### C BC #### [facility] [address] [place] [address] [address] Edilson Mortensen Eosinophils/100 WBC (Bld) 2.1 % Normal 0.9-7.0 [facility] Comment on above: Performed By: #### C BC #### [facility] [address] [place] [address] Dr. Edilson Mortensen Erythrocyte distribution width (RBC) [Ratio] 13.0 % Normal 11.0-15.0 [facility] Comment on above: Performed By: #### C BC #### [facility] [address] [place] [address] [address] Edilson Mortensen Hematocrit (Bld) [Volume fraction] 41.6 % Critically low 42.0-54.0 [facility] Comment on above: Performed By: #### C BC #### [facility] [address] [place] [address] [address] Edilson Mortensen Hemoglobin (Bld) [Mass/Vol] 14.5 g/dL Normal 14.0-18.0 [facility] Comment on above: Performed By: #### C BC #### [facility] [address] [place] [address] Dr. Edilson Mortensen IG # 0.05 10e3/ul Critically high 0.00-0.03 [facility] Comment on above: Performed By: #### C BC #### [facility] [address] [place] [address] Dr. Edilson Mortensen IG % 0.6 % Critically high 0.0-0.5 [facility] Comment on above: Performed By: #### C BC #### [facility] [address] [place] [address] Dr. Edilson Mortensen LYMPH # 2.2 103/ul Normal 1.2-3.8 [facility] Comment on above: Performed By: #### C BC #### [facility] [address] [place] [address] Dr. Edilson Mortensen Lymphocytes/100 WBC (Bld) 23.7 % Normal 20.5-60.0 [facility] Comment on above: Performed By: #### C BC #### [facility] [address] [place] [address] Dr. Edilson Mortensen MANUAL DIFF REQ NO Normal [facility] Comment on above: Performed By: #### C BC #### [facility] [address] [place] [address] Dr. Edilson Mortensen MCH (RBC) [Entitic mass] 34.0 pg Normal 25.9-34.0 [facility] Comment on above: Performed By: #### C BC #### [facility] [address] [place] [address] [address] Edilson Mortensen MCHC (RBC) [Mass/Vol] 34.9 g/dL Normal 29.9-35.2 [facility] Comment on above: Performed By: #### C BC #### [facility] [address] [place] [address] [address] Edilson Mortensen MCV (RBC) [Entitic vol] 97.7 fL Critically high 80.0-94.0 [facility] Comment on above: Performed By: #### C BC #### [facility] [address] [place] [address] [address] Edilson Mortensen MONO # 1.1 103/ul Critically high 0.3-0.8 [facility] Comment on above: Performed By: #### C BC #### [facility] [address] [place] [address] Dr. Edilson Mortensen Monocytes/100 WBC (Bld) 12.6 % Critically high 1.7-12.0 [facility] Comment on above: Performed By: #### C BC #### [facility] [address] [place] [address] [address] Edilson Mortensen NEUT # 5.5 103/ul Normal 1.4-6.5 [facility] Comment on above: Performed By: #### C BC #### [facility] [address] [place] [address] Dr. Edilson Mortensen Neutrophils/100 WBC (Bld) 60.6 % Normal 43.0-75.0 [facility] Comment on above: Performed By: #### C BC #### [facility] [address] [address] [address] Edilson Mortensen Platelet mean volume (Bld) [Entitic vol] 8.8 fL Critically low 9.5-13.5 [facility] Comment on above: Performed By: #### C BC #### [facility] [address] [place] [address] Dr. Edilson Mortensen PLT 267 103/ul Normal 150-450 [facility] Comment on above: Performed By: #### C BC #### [facility] [address] [place], [place] [address] Dr. Edilson Mortensen RBC 4.26 106/ul Critically low 4.70-6.10 [facility] Comment on above: Performed By: #### C BC #### [facility] [address] [place], [place] [address] Dr. Edilson Mortensen WBC 9.1 103/ul Normal 4.0-11.0 [facility] Comment on above: Performed By: #### C BC #### [facility] [address] [place], [place] [address] Dr. Edilson Mortensen CTA CHEST WO W [...] by: AARON MORA Date: 2022-11-13 20:14 Normal [facility] PROF CHEM 8 (BAS METB)on Anion gap [Moles/Vol] 13.9 mmol/L Normal [facility] Comment on above: Performed By: #### T HYLC #### [facility] [address] [place], [place] [address] Dr. Edilson Mortensen Calcium [Mass/Vol] 8.6 mg/dL Normal 8.5-10.1 [facility] Comment on above: Performed By: #### T HYLC #### [facility] [address] [place] [address] Dr. Edilson Mortensen Chloride [Moles/Vol] 103 mmol/L Normal 98-107 [facility] Comment on above: Performed By: #### T HYLC #### [facility] [address] [place] [address] Dr. Edilson Mortensen CO2 [Moles/Vol] 26.8 mmol/L Normal 21.0-32.0 [facility] Comment on above: Performed By: #### T HYLC #### [facility] [address] [place] [address] Dr. Edilson Mortensen Creatinine [Mass/Vol] 1.46 mg/dL Critically high 0.70-1.30 [facility] Comment on above: Performed By: #### T HYLC #### [facility] [address] [place] [address] Dr. Edilson Mortensen EGFR-AF TURKISH 60 mL/min/1.73m2 Normal >=60 [facility] Comment on above: Performed By: #### T HYLC #### [facility] [address] [place] [address] Dr. Edilson Mortensen EGFR-NON AF TURKISH 49 mL/min/1.73m2 Critically low >=60 [facility] Comment on above: Performed By: #### T HYLC #### [facility] [address] [place] [address] Dr. Edilson Mortensen Glucose [Mass/Vol] 86 mg/dL Normal 74-106 [facility] Comment on above: Performed By: #### T HYLC #### [facility] [address] [place] [address] Dr. Edilson Mortensen Potassium [Moles/Vol] 3.7 mmol/L Normal 3.5-5.1 [facility] Comment on above: Performed By: #### T HYLC #### [facility] [address] [place] [address] Dr. Edilson Mortensen Sodium [Moles/Vol] 140 mmol/L Normal 136-145 [facility] Comment on above: Performed By: #### T HYLC #### [facility] [address] [place] [address] Dr. Edilson Mortensen Urea nitrogen [Mass/Vol] 12.0 mg/dL Normal 7.0-18.0 [facility] Comment on above: Performed By: #### T HYLC #### [facility] [address] [place] [address] Dr. Edilson Mortensen Urea nitrogen/Creatinine [Mass ratio] 8.2 mg/mg Normal [facility] Comment on above: Performed By: #### T HYLC #### [facility] [address] [place] [address] Dr. Edilson Mortensen PROTIMEon 11-13-2022 INR Coag (PPP) [Relative time] {INR} Normal [facility] Comment on above: Performed By: #### I SAMEER PSASC, VITB12 #### [facility] [address] [place] [address] Dr. Edilson Mortensen INR GUIDELINES SEE BELOW Normal [facility] Comment on above: Result Comment: GERARDO RED INR: 2.0 - 3.0 CONDITIONS NOT LISTED BELOW 2.5 - 3.5 FOR PROSTHETIC HEART VALVE REPLACEMENT 2.5 - 3.5 RECURRENT THROMBOSIS Performed By: #### I SAMEER, PSASC, VITB12 #### [facility] [address] [place] [address] Dr. Edilson Mortensen PT Coag (PPP) [Time] 9.8 s Normal 9.0-11.6 [facility] Comment on above: Performed By: #### I SAMEER, PSASC, VITB12 #### [facility] [address] [place] [address] Dr. Edilson Mortensen PTTon 11-13-2022 aPTT Coag (Bld) [Time] 27.0 s Normal 22.3-36.2 [facility] Comment on above: Performed By: #### I SAMEER, PSASC, VITB12 #### [facility] [address] [place] [address] Dr. Edilson Mortensen TROPONIN, HIGH SENSITIVITYon 11-13-2022 HSTROP 4.1 pg/mL Normal 4.0-76.1 [facility] Comment on above: Result Comment: CUT- OFF POINTS HAVE BEEN ESTABLISHED BASED ON THE [employer] DEFINITIONS OF MYOCARDIAL INFARCTION. THE UPPER REFERENCE LIMIT (URL) OF TROPONIN, DEFINED THE 99TH PERCENTILE OF cTnI DISTRIBUTION IN A REFERENCE POPULATION, HAS BEEN CONFIRMED THE DECISION THRESHOLD FOR MD DIAGNOSIS. Performed By: #### T HYLC #### [facility] [address] [place], [place] [address] Dr. Edilson Mortensen US SCROTUMon 07-14-2022 US [...] Date: 2022-07-14 07:15 Normal [facility] TESTOSTERONE, TOTALon 2021 Testosterone [Mass/Vol] 1038 ng/dL Critically high 264-916 [facility] Comment on above: Result Comment: Adul t male reference interval is based on a population of healthy nonobese males (BMI <30) between 19 and 39 years old. My, et.al. JCEM 2017,102;5815-2492. PMID: [id number]. Performed By: #### T ESTTOT #### [facility] [address] [place], [place] [address] Dr. Edilson Mortensen INSULINon 06-10-2022 Insulin 4.7 uIU/mL Normal 2.6-24.9 [facility] Comment on above: Performed By: #### I SAMEER, PSASC, VITB12 #### [facility] [address] [address] [address] Edilson Mortensen T4, T3U, FTI [facility]on 06-10 Free Thyroxine Index 2.3 Normal 1.2-4.9 [facility] Comment on above: Performed By: #### T HYLC #### [facility] [address] [address] [address] Edilson Mortensen T3 Uptake 29 % Normal 24-39 [facility] Comment on above: Performed By: #### T HYLC #### [facility] [address] [address] [address] Edilson Mortensen T4 [Mass/Vol] 7.9 ug/dL Normal 4.5-12.0 [facility] Comment on above: Performed By: #### T HYLC #### [facility] [address] [address] [address] Edilson Mortensen TESTOSTERONE, TOTALon 2021 Testosterone [Mass/Vol] 1062 ng/dL Critically high 264-916 [facility] Comment on above: Result Comment: Adul t male reference interval is based on a population of healthy nonobese males (BMI <30) between 19 and 39 years old. My et.al. JCEM 2017,102;9242-1826. PMID: [id number]. Performed By: #### T ESTTOT #### [facility] [address] [place] [address] Dr. Edilson Mortensen VIT D 25-OH [facility] 2021 Vitamin D, 25-Hydroxy 17.9 ng/mL Critically low 30.0-100.0 [facility] Comment on above: Result Comment: Isabel min D deficiency has been defined by the [place] [employer] and an Endocrine Society practice guideline as a level of serum 25-OH vitamin D less than 20 ng/mL (1,2). The Endocrine Society went on to further define vitamin D insufficiency as a level between 21 and 29 ng/mL (2). 1. IOM ([place] of [employer]). 2010. Dietary reference intakes for calcium and D. [place]: The National Academies Press. 2. Gayla MF, Laura NC, Kelly BARRIOS, et al. Evaluation, treatment, and prevention of vitamin D deficiency: an Endocrine Society clinical practice guideline. JCEM. 2010; 96(7):1911-30. Performed By: #### I SAMEER, PSASC, VITB12 #### [facility] [address] [place] [address] Dr. Edilson Mortensen CBC AUTO DIFFon 06-09-2022 BASO # 0.0 103/ul Normal 0.0-0.1 [facility] Comment on above: Performed By: #### C BC #### [facility] [address] [place] [address] Dr. Edilson Mortensen Basophils/100 WBC (Bld) 0.4 % Normal 0.2-2.0 [facility] Comment on above: Performed By: #### C BC #### [facility] [address] [place] [address] Dr. Edilson Mortensen EO # 0.3 103/ul Normal 0.0-0.7 [facility] Comment on above: Performed By: #### C BC #### [facility] [address] [place] [address] Dr. Edilson Mortensen Eosinophils/100 WBC (Bld) 3.0 % Normal 0.9-7.0 [facility] Comment on above: Performed By: #### C BC #### [facility] [address] [place] [address] Dr. Edilson Mortensen Erythrocyte distribution width (RBC) [Ratio] 12.2 % Normal 11.0-15.0 [facility] Comment on above: Performed By: #### C BC #### [facility] [address] [place] [address] Dr. Edilson Mortensen Hematocrit (Bld) [Volume fraction] 46.0 % Normal 42.0-54.0 [facility] Comment on above: Performed By: #### C BC #### [facility] [address] [place] [address] Dr. Edilson Mortensen Hemoglobin (Bld) [Mass/Vol] 15.6 g/dL Normal 14.0-18.0 [facility] Comment on above: Performed By: #### C BC #### [facility] [address] [place] [address] Dr. Edilson Mortensen IG # 0.05 10e3/ul Critically high 0.00-0.03 [facility] Comment on above: Performed By: #### C BC #### [facility] [address] [place] [address] Dr. Edilson Mortensen IG % 0.5 % Normal 0.0-0.5 [facility] Comment on above: Performed By: #### C BC #### [facility] [address] [place] [address] Dr. Edilson Mortensen LYMPH # 2.6 103/ul Normal 1.2-3.8 [facility] Comment on above: Performed By: #### C BC #### [facility] [address] [place] [address] Dr. Edilson Mortensen Lymphocytes/100 WBC (Bld) 26.1 % Normal 20.5-60.0 [facility] Comment on above: Performed By: #### C BC #### [facility] [address] [place] [address] Dr. Edilson Mortensen MANUAL DIFF REQ NO Normal [facility] Comment on above: Performed By: #### C BC #### [facility] [address] [place] [address] Dr. Edilson Mortensen MCH (RBC) [Entitic mass] 33.6 pg Normal 25.9-34.0 [facility] Comment on above: Performed By: #### C BC #### [facility] [address] [place] [address] Dr. Edilson Mortensen MCHC (RBC) [Mass/Vol] 33.9 g/dL Normal 29.9-35.2 [facility] Comment on above: Performed By: #### C BC #### [facility] [address] [place] [address] Dr. Edilson Mortensen MCV (RBC) [Entitic vol] 99.1 fL Critically high 80.0-94.0 [facility] Comment on above: Performed By: #### C BC #### [facility] [address] [address] [address] Edilson Mortensen MONO # 1.2 103/ul Critically high 0.3-0.8 [facility] Comment on above: Performed By: #### C BC #### [facility] [address] [address] [address] Edilson Mortensen Monocytes/100 WBC (Bld) 12.2 % Critically high 1.7-12.0 [facility] Comment on above: Performed By: #### C BC #### [facility] [address] [address] [address] Edilson Mortensen NEUT # 5.8 103/ul Normal 1.4-6.5 [facility] Comment on above: Performed By: #### C BC #### [facility] [address] [place] [address] Dr. Edilson Mortensen Neutrophils/100 WBC (Bld) 57.8 % Normal 43.0-75.0 [facility] Comment on above: Performed By: #### C BC #### [facility] [address] [address] [address] Edilson Mortensen Platelet mean volume (Bld) [Entitic vol] 8.3 fL Critically low 9.5-13.5 [facility] Comment on above: Performed By: #### C BC #### [facility] [address] [place] [address] Dr. Edilson Mortensen PLT 272 103/ul Normal 150-450 [facility] Comment on above: Performed By: #### C BC #### [facility] [address] [address] [address] Edilson Mortensen RBC 4.64 106/ul Critically low 4.70-6.10 [facility] Comment on above: Performed By: #### C BC #### [facility] [address] [address] [address] Edilson Mortensen WBC 10.0 103/ul Normal 4.0-11.0 [facility] Comment on above: Performed By: #### C BC #### [facility] [address] [address] [address] Edilson Mortensen DILANTINon 06-09-2022 Phenytoin [Mass/Vol] 14.6 ug/mL Normal 10.0-20.0 [facility] Comment on above: Performed By: #### I SAMEER PSASC, VITB12 #### [facility] [address] [address] [address] Edilson Mortensen GLYCOHEMOGLOBIN A1Con 2021 ADA RECOMMENDATION SEE BELOW Normal [facility] Comment on above: Result Comment: ADA RECOMMENDED LIMIT 4.0 - 6.0 ADA THERAPEUTIC TARGET < 7.0 ACTION SUGGESTED > 7.0 Performed By: #### I IRENA ESTRELLA, VITB12 #### [facility] [address] [place] [address] Dr. Edilson Mortensen Glucose [Mass/Vol] 108 mg/dL Normal [facility] Comment on above: Performed By: #### I SAMEER PSASC, VITB12 #### [facility] [address] [place] [address] Dr. Edilson Mortensen HbA1c (Bld) [Mass fraction] 5.4 % Normal 4.5-6.2 [facility] Comment on above: Performed By: #### I SAMEER PSASC, VITB12 #### [facility] [address] [place] [address] Dr. Edilson Mortensen IRONon 06-09-2022 Iron [Mass/Vol] 109.0 ug/dL Normal 65.0-175.0 [facility] Comment on above: Performed By: #### I SAMEER PSASC, VITB12 #### [facility] [address] [place] [address] Dr. Edilson Mortensen LIPID PROFILEon 06-09-2022 CHOL-HDL RATIO NORM SEE BELOW Normal [facility] Comment on above: Result Comment: 3.3 - 4.4 LOW RISK 4.4 - 7.1 AVERAGE RISK 7.1 - 11.0 MODERATE RISK >11.0 HIGH RISK Performed By: #### I SAMEER, PSASC, VITB12 #### [facility] [address] [address] [address] Edilson Mortensen Cholesterol [Mass/Vol] 153 mg/dL Normal <=200 [facility] Comment on above: Performed By: #### I SAMEER PSASC, VITB12 #### [facility] [address] [address] [address] Edilson Mortensen Cholesterol in HDL [Mass/Vol] 56 mg/dL Normal 40-60 [facility] Comment on above: Performed By: #### I SAMEER PSASC, VITB12 #### [facility] [address] [address] [address] Edilson Mortensen Cholesterol in LDL [Mass/Vol] 75.0 mg/dL Normal [facility] Comment on above: Performed By: #### I SAMEER PSASC, VITB12 #### [facility] [address] [address] [address] Edilson Mortensen Cholesterol.total/Chol esterol in HDL [Mass ratio] 2.7 {ratio} Normal [facility] Comment on above: Performed By: #### I SAMEER PSASC, VITB12 #### [facility] [address] [address] [address] Edilson Mortensen HDL NORMAL > or = 60 mg/dl - LO W CARDIOVASCULAR RISK <40 mg/dl - HIGH CARDIOVASCULAR RISK Normal [facility] Comment on above: Performed By: #### I SAMEER PSASC, VITB12 #### [facility] [address] [address] [address] Edilson Mortensen LDL CALC NORMAL SEE BELOW Normal [facility] Comment on above: Result Comment: <100 mg/dl OPTIMAL 100 - 129 mg/dl NEAR OR ABOVE OPTIMAL 130 - 159 mg/dl BORDERLINE HIGH 160 - 189 mg/dl HIGH >190 mg/dl VERY HIGH Performed By: #### I SAMEER PSASC, VITB12 #### [facility] [address] [address] [address] Edilson Mortensen Triglyceride [Mass/Vol] 110 mg/dL Normal <=150 [facility] Comment on above: Performed By: #### I SAMEER PSASC, VITB12 #### [facility] [address] [address] [address] Edilson Mortensen VLDL CALC 22.0 mg/dL Normal [facility] Comment on above: Performed By: #### I SAMEER, PSASC, VITB12 #### [facility] [address] [address] [address] Edilson Mortensen PROF 14(COMP METB)on 022 Albumin [Mass/Vol] 3.6 g/dL Normal 3.4-5.0 [facility] Comment on above: Performed By: #### I SAMEER, PSASC, VITB12 #### [facility] [address] [address] [address] Edilson Mortensen Albumin/Globulin [Mass ratio] 1.1 {ratio} Normal [facility] Comment on above: Performed By: #### I SAMEER, PSASC, VITB12 #### [facility] [address] [place] [address] Dr. Edilson Mortensen ALP [Catalytic activity/Vol] 115 U/L Normal 46-116 [facility] Comment on above: Performed By: #### I SAMEER, PSASC, VITB12 #### [facility] [address] [address] [address] Edilson Mortensen ALT [Catalytic activity/Vol] 12 U/L Critically low 16-63 [facility] Comment on above: Performed By: #### I SAMEER, PSASC, VITB12 #### [facility] [address] [address] [address] Edilson Mortensen Anion gap [Moles/Vol] 10.6 mmol/L Normal [facility] Comment on above: Performed By: #### I SAMEER, PSASC, VITB12 #### [facility] [address] [address] [address] Edilson Mortensen AST [Catalytic activity/Vol] 11 U/L Critically low 15-37 [facility] Comment on above: Performed By: #### I SAMEER, PSASC, VITB12 #### [facility] [address] [address] [address] Edilson Mortensen Bilirubin [Mass/Vol] 0.2 mg/dL Normal 0.2-1.0 [facility] Comment on above: Performed By: #### I MARGE ESTRELLASC, VITB12 #### [facility] [address] [place] [address] Dr. Edilson Mortensen Calcium [Mass/Vol] 9.1 mg/dL Normal 8.5-10.1 [facility] Comment on above: Performed By: #### I SAMEER PSASC, VITB12 #### [facility] [address] [place] [address] Dr. Edilson Mortensen Chloride [Moles/Vol] 101 mmol/L Normal 98-107 [facility] Comment on above: Performed By: #### I ASMEER PSASC, VITB12 #### [facility] [address] [place] [address] Dr. Edilson Mortensen CO2 [Moles/Vol] 29.7 mmol/L Normal 21.0-32.0 [facility] Comment on above: Performed By: #### I SAMEER PSASC, VITB12 #### [facility] [address] [place] [address] Dr. Edilson Mortensen Creatinine [Mass/Vol] 1.11 mg/dL Normal 0.70-1.30 [facility] Comment on above: Performed By: #### I SAMEER PSASC, VITB12 #### [facility] [address] [place] [address] Dr. Edilson Mortensen EGFR-AF TURKISH >60 Normal >=60 [facility] Comment on above: Performed By: #### I SAMEER PSASC, VITB12 #### [facility] [address] [place] [address] Dr. Edilson Mortensen EGFR-NON AF TURKISH >60 Normal >=60 [facility] Comment on above: Performed By: #### I SAMEER PSASC, VITB12 #### [facility] [address] [place] [address] Dr. Edilson Mortensen Globulin (S) [Mass/Vol] 3.4 g/dL Normal [facility] Comment on above: Performed By: #### I SAMEER PSASC, VITB12 #### [facility] [address] [place] [address] Dr. Edilson Mortensen Glucose [Mass/Vol] 111 mg/dL Critically high 74-106 [facility] Comment on above: Performed By: #### I SAMEER, PSASC, VITB12 #### [facility] [address] [place] [address] Dr. Edilson Mortensen Potassium [Moles/Vol] 4.3 mmol/L Normal 3.5-5.1 [facility] Comment on above: Performed By: #### I SAMEER, PSASC, VITB12 #### [facility] [address] [place] [address] Dr. Edilson Mortensen Protein [Mass/Vol] 7.0 g/dL Normal 6.4-8.2 [facility] Comment on above: Performed By: #### I SAMEER PSASC, VITB12 #### [facility] [address] [place] [address] Dr. Edilson Mortensen Sodium [Moles/Vol] 137 mmol/L Normal 136-145 [facility] Comment on above: Performed By: #### I SAMEER PSASC, VITB12 #### [facility] [address] [place] [address] Dr. Edilson Mortensen Urea nitrogen [Mass/Vol] 12.0 mg/dL Normal 7.0-18.0 [facility] Comment on above: Performed By: #### I SAMEER PSASC, VITB12 #### [facility] [address] [place] [address] Dr. Edilson Mortensen Urea nitrogen/Creatinine [Mass ratio] 10.8 mg/mg Normal [facility] Comment on above: Performed By: #### I SAMEER PSASC, VITB12 #### [facility] [address] [place] [address] Dr. Edilson Mortensen TSHon 06-09-2022 TSH 1.807 uIU/mL Normal 0.358-3.74 0 [facility] Comment on above: Performed By: #### I SAMEER, PSASC, VITB12 #### [facility] [address] [place] [address] Dr. Edilson Mortensen URIC ACID SERUMon 06-09-2022 Urate [Mass/Vol] 4.1 mg/dL Normal 3.5-7.2 [facility] Comment on above: Performed By: #### I SAMEER PSASC, VITB12 #### [facility] [address] [place] [address] Dr. Edilson Mortensen VITAMIN B12on 06-09-2022 Cobalamin (Vitamin B12) [Mass/Vol] 282.0 pg/mL Normal 193.0-986. 0 [facility] Comment on above: Performed By: #### I MARGE ESTRELLASC, VITB12 #### [facility] [address] [place] [address] Dr. Edilson Mortensen CBC AUTO DIFFon 04-15-2022 BASO # 0.1 103/ul Normal 0.0-0.1 [facility] Comment on above: Performed By: #### I SAMEER PSASC, VITB12 #### [facility] [address] [place] [address] Dr. Edilson Mortensen Basophils/100 WBC (Bld) 0.5 % Normal 0.2-2.0 [facility] Comment on above: Performed By: #### I SAMEER PSASC, VITB12 #### [facility] [address] [place] [address] Dr. Edilson Mortensen EO # 0.2 103/ul Normal 0.0-0.7 [facility] Comment on above: Performed By: #### I SAMEER PSASC, VITB12 #### [facility] [address] [place] [address] Dr. Edilson Mortensen Eosinophils/100 WBC (Bld) 1.6 % Normal 0.9-7.0 [facility] Comment on above: Performed By: #### I SAMEER PSASC, VITB12 #### [facility] [address] [place] [address] Dr. Edilson Mortensen Erythrocyte distribution width (RBC) [Ratio] 12.8 % Normal 11.0-15.0 [facility] Comment on above: Performed By: #### I SAMEER PSASC, VITB12 #### [facility] [address] [place] [address] Dr. Edilson Mortensen Hematocrit (Bld) [Volume fraction] 41.4 % Critically low 42.0-54.0 [facility] Comment on above: Performed By: #### I SAMEER, PSASC, VITB12 #### [facility] [address] [place] [address] Dr. Edilson Mortensen Hemoglobin (Bld) [Mass/Vol] 14.5 g/dL Normal 14.0-18.0 [facility] Comment on above: Performed By: #### I SAMEER PSASC, VITB12 #### [facility] [address] [place] [address] Dr. Edilson Mortensen IG # 0.12 10e3/ul Critically high 0.00-0.03 [facility] Comment on above: Performed By: #### I SAMEER PSASC, VITB12 #### [facility] [address] [place] [address] Dr. Edilson Mortensen IG % 1.2 % Critically high 0.0-0.5 [facility] Comment on above: Performed By: #### I SAMEER PSASC, VITB12 #### [facility] [address] [place] [address] Dr. Edilson Mortensen LYMPH # 1.9 103/ul Normal 1.2-3.8 [facility] Comment on above: Performed By: #### I SAMEER PSASC, VITB12 #### [facility] [address] [place] [address] Dr. Edilson Mortensen Lymphocytes/100 WBC (Bld) 18.8 % Critically low 20.5-60.0 [facility] Comment on above: Performed By: #### I SAMEER PSASC, VITB12 #### [facility] [address] [place] [address] Dr. Edilson Mortensen MANUAL DIFF REQ NO Normal [facility] Comment on above: Performed By: #### I SAMEER, PSASC, VITB12 #### [facility] [address] [place] [address] Dr. Edilson Mortensen MCH (RBC) [Entitic mass] 34.1 pg Critically high 25.9-34.0 [facility] Comment on above: Performed By: #### I SAMEER, PSASC, VITB12 #### [facility] [address] [place] [address] Dr. Edilson Mortensen MCHC (RBC) [Mass/Vol] 35.0 g/dL Normal 29.9-35.2 [facility] Comment on above: Performed By: #### I SAMEER, PSASC, VITB12 #### [facility] [address] [place] [address] Dr. Edilson Mortensen MCV (RBC) [Entitic vol] 97.4 fL Critically high 80.0-94.0 [facility] Comment on above: Performed By: #### I SAMEER, PSASC, VITB12 #### [facility] [address] [place] [address] Dr. Edilson Mortensen MONO # 1.2 103/ul Critically high 0.3-0.8 [facility] Comment on above: Performed By: #### I SAMEER, PSASC, VITB12 #### [facility] [address] [place] [address] Dr. Edilson Mortensen Monocytes/100 WBC (Bld) 12.1 % Critically high 1.7-12.0 [facility] Comment on above: Performed By: #### I SAMEER, PSASC, VITB12 #### [facility] [address] [place] [address] Dr. Edilson Mortensen NEUT # 6.7 103/ul Critically high 1.4-6.5 [facility] Comment on above: Performed By: #### I SAMEER, PSASC, VITB12 #### [facility] [address] [place] [address] Dr. Edilson Mortensen Neutrophils/100 WBC (Bld) 65.8 % Normal 43.0-75.0 [facility] Comment on above: Performed By: #### I SAMEER, PSASC, VITB12 #### [facility] [address] [place] [address] Dr. Edilson Mortensen Platelet mean volume (Bld) [Entitic vol] 8.4 fL Critically low 9.5-13.5 [facility] Comment on above: Performed By: #### I IRENA ESTRELLA VITB12 #### [facility] [address] [place] [address] Dr. Edilson Mortensen PLT 312 103/ul Normal 150-450 [facility] Comment on above: Performed By: #### I IRENA ESTRELLA, VITB12 #### [facility] [address] [address] [address] Edilson Mortensen RBC 4.25 106/ul Critically low 4.70-6.10 [facility] Comment on above: Performed By: #### I IRENA ESTRELLA VITB12 #### [facility] [address] [place] [address] Dr. Edilson Mortensen WBC 10.2 103/ul Normal 4.0-11.0 [facility] Comment on above: Performed By: #### I IRENA ESTRELLA VITB12 #### [facility] [address] [place] [address] Dr. Edilson Mortensen PROF 14(COMP METB)on 022 Albumin [Mass/Vol] 3.2 g/dL Critically low 3.4-5.0 [facility] Comment on above: Performed By: #### C MP #### [facility] [address] [place] [address] Dr. Edilson Mortensen Albumin/Globulin [Mass ratio] 1.1 {ratio} Normal [facility] Comment on above: Performed By: #### C MP #### [facility] [address] [place] [address] Dr. Edilson Mortensen ALP [Catalytic activity/Vol] 153 U/L Critically high 46-116 [facility] Comment on above: Performed By: #### C MP #### [facility] [address] [place] [address] Dr. Edilson Mortensen ALT [Catalytic activity/Vol] 15 U/L Critically low 16-63 [facility] Comment on above: Performed By: #### C MP #### [facility] [address] [address] [address] Edilson Mortensen Anion gap [Moles/Vol] 11.2 mmol/L Normal Th [facility] Comment on above: Performed By: #### C MP #### [facility] [address] [place] [address] Dr. Edilson Mortensen AST [Catalytic activity/Vol] 10 U/L Critically low 15-37 [facility] Comment on above: Performed By: #### C MP #### [facility] [address] [place] [address] Dr. Edilson Mortensen Bilirubin [Mass/Vol] 0.4 mg/dL Normal 0.2-1.0 [facility] Comment on above: Performed By: #### C MP #### [facility] [address] [place] [address] Dr. Edilson Mortensen Calcium [Mass/Vol] 9.1 mg/dL Normal 8.5-10.1 [facility] Comment on above: Performed By: #### C MP #### [facility] [address] [place] [address] Dr. Edilson Mortensen Chloride [Moles/Vol] 105 mmol/L Normal 98-107 [facility] Comment on above: Performed By: #### C MP #### [facility] [address] [place] [address] Dr. Edilson Mortensen CO2 [Moles/Vol] 25.9 mmol/L Normal 21.0-32.0 [facility] Comment on above: Performed By: #### C MP #### [facility] [address] [place] [address] Dr. Edilson Mortensen Creatinine [Mass/Vol] 0.82 mg/dL Normal 0.70-1.30 [facility] Comment on above: Performed By: #### C MP #### [facility] [address] [place] [address] Dr. Edilson Mortensen EGFR-AF TURKISH >60 Normal >=60 [facility] Comment on above: Performed By: #### C MP #### [facility] [address] [place] [address] Dr. Edilson Mortensen EGFR-NON AF TURKISH >60 Normal >=60 [facility] Comment on above: Performed By: #### C MP #### [facility] [address] [place] [address] Dr. Edilson Mortensen Globulin (S) [Mass/Vol] 3.0 g/dL Normal [facility] Comment on above: Performed By: #### C MP #### [facility] [address] [place] [address] Dr. Edilson Mortensen Glucose [Mass/Vol] 112 mg/dL Critically high 74-106 [facility] Comment on above: Performed By: #### C MP #### [facility] [address] [place] [address] Dr. Edilson Mortensen Potassium [Moles/Vol] 4.1 mmol/L Normal 3.5-5.1 [facility] Comment on above: Performed By: #### C MP #### [facility] [address] [place] [address] Dr. Edilson Mortensen Protein [Mass/Vol] 6.2 g/dL Critically low 6.4-8.2 [facility] Comment on above: Performed By: #### C MP #### [facility] [address] [place] [address] Dr. Edilson Mortensen Sodium [Moles/Vol] 138 mmol/L Normal 136-145 [facility] Comment on above: Performed By: #### C MP #### [facility] [address] [place] [address] Dr. Edilson Mortensen Urea nitrogen [Mass/Vol] 7.0 mg/dL Normal 7.0-18.0 [facility] Comment on above: Performed By: #### C MP #### [facility] [address] [place] [address] Dr. Edilson Mortensen Urea nitrogen/Creatinine [Mass ratio] 8.5 mg/mg Normal [facility] Comment on above: Performed By: #### C MP #### [facility] [address] [place] [address] Dr. Edilson Mortensen BNPon 04-14-2022 Natriuretic peptide B (Bld) [Mass/Vol] 120.0 pg/mL Normal <=900.0 [facility] Comment on above: Performed By: #### I SAMEER PSASC, VITB12 #### [facility] [address] [place] [address] Dr. Edilson Mortensen CBC AUTO DIFFon 04-14-2022 BASO # 0.1 103/ul Normal 0.0-0.1 [facility] Comment on above: Performed By: #### I SAMEER, PSASC, VITB12 #### [facility] [address] [place] [address] Dr. Edilson Mortensen Basophils/100 WBC (Bld) 0.4 % Normal 0.2-2.0 [facility] Comment on above: Performed By: #### I SAMEER, PSASC, VITB12 #### [facility] [address] [place] [address] Dr. Edilson Mortensen EO # 0.2 103/ul Normal 0.0-0.7 [facility] Comment on above: Performed By: #### I SAMEER, PSASC, VITB12 #### [facility] [address] [place] [address] Dr. Edilson Mortensen Eosinophils/100 WBC (Bld) 1.3 % Normal 0.9-7.0 [facility] Comment on above: Performed By: #### I SAMEER, PSASC, VITB12 #### [facility] [address] [place] [address] Dr. Edilson Mortensen Erythrocyte distribution width (RBC) [Ratio] 13.1 % Normal 11.0-15.0 [facility] Comment on above: Performed By: #### I SAMEER, PSASC, VITB12 #### [facility] [address] [place] [address] Dr. Edilson Mortensen Hematocrit (Bld) [Volume fraction] 43.2 % Normal 42.0-54.0 [facility] Comment on above: Performed By: #### I SAMEER, PSASC, VITB12 #### [facility] [address] [place] [address] Dr. Edilson Mortensen Hemoglobin (Bld) [Mass/Vol] 14.3 g/dL Normal 14.0-18.0 [facility] Comment on above: Performed By: #### I IRENA ESTRELLA, VITB12 #### [facility] [address] [place] [address] Dr. Edilson Mortensen IG # 0.11 10e3/ul Critically high 0.00-0.03 [facility] Comment on above: Performed By: #### I IRENA ESTRELLA, VITB12 #### [facility] [address] [place] [address] Dr. Edilson Mortensen IG % 0.9 % Critically high 0.0-0.5 [facility] Comment on above: Performed By: #### I IRENA ESTRELLA, VITB12 #### [facility] [address] [place] [address] Dr. Edilson Mortensen LYMPH # 2.0 103/ul Normal 1.2-3.8 [facility] Comment on above: Performed By: #### I IRENA ESTRELLA, VITB12 #### [facility] [address] [place] [address] Dr. Edilson Mortensen Lymphocytes/100 WBC (Bld) 15.8 % Critically low 20.5-60.0 [facility] Comment on above: Performed By: #### I MARGE ESTRELLASC, VITB12 #### [facility] [address] [place] [address] Dr. Edilson Mortensen MANUAL DIFF REQ NO Normal [facility] Comment on above: Performed By: #### I MARGE ESTRELLASC, VITB12 #### [facility] [address] [place] [address] Dr. Edilson Mortensen MCH (RBC) [Entitic mass] 33.6 pg Normal 25.9-34.0 [facility] Comment on above: Performed By: #### I MARGE ESTRELLASC, VITB12 #### [facility] [address] [place] [address] Dr. Edilson Mortensen MCHC (RBC) [Mass/Vol] 33.1 g/dL Normal 29.9-35.2 [facility] Comment on above: Performed By: #### I SAMEER PSASC, VITB12 #### [facility] [address] [place] [address] Dr. Edilson Mortensen MCV (RBC) [Entitic vol] 101.6 fL Critically high 80.0-94.0 [facility] Comment on above: Performed By: #### I SAMEER PSASC, VITB12 #### [facility] [address] [place] [address] Dr. Edilson Mortensen MONO # 1.5 103/ul Critically high 0.3-0.8 [facility] Comment on above: Performed By: #### I SAMEER PSASC, VITB12 #### [facility] [address] [place] [address] Dr. Edilson Mortensen Monocytes/100 WBC (Bld) 11.5 % Normal 1.7-12.0 [facility] Comment on above: Performed By: #### I SAMEER PSASC, VITB12 #### [facility] [address] [place] [address] Dr. Edilson Mortensen NEUT # 8.9 103/ul Critically high 1.4-6.5 [facility] Comment on above: Performed By: #### I SAMEER PSASC, VITB12 #### [facility] [address] [place] [address] Dr. Edilson Mortensen Neutrophils/100 WBC (Bld) 70.1 % Normal 43.0-75.0 [facility] Comment on above: Performed By: #### I SAMEER PSASC, VITB12 #### [facility] [address] [place] [address] Dr. Edilson Mortensen Platelet mean volume (Bld) [Entitic vol] 8.3 fL Critically low 9.5-13.5 [facility] Comment on above: Performed By: #### I SAMEER PSASC, VITB12 #### [facility] [address] [place] [address] Dr. Edilson Mortensen PLT 328 103/ul Normal 150-450 [facility] Comment on above: Performed By: #### I SAMEER PSASC, VITB12 #### [facility] [address] [place], [place] [address] Dr. Edilson Mortensen RBC 4.25 106/ul Critically low 4.70-6.10 [facility] Comment on above: Performed By: #### I MARGE ESTRELLASC, VITB12 #### [facility] [address] [place], [place] [address] Dr. Edilson Mortensen WBC 12.6 103/ul Critically high 4.0-11.0 [facility] Comment on above: Performed By: #### I SAMEER PSASC, VITB12 #### [facility] [address] [place], [place] [address] Dr. Edilson Mortensen CTA CHEST WO W CONon 04-14-2 022 CTA CHEST WO W CON CTA [...] The subdiaphragmatic abdominal organs included in the [id number] do not demonstrate any acute abnormality. IMPRESSION: 1. Positive for small left-sided acute pulmonary emboli. No heart strain. 2. Groundglass opacities in the lung bases. Please correlate for pneumonia versus atelectasis. 3. Ascending aorta is aneurysmal measuring 4 cm. CRITICAL findings: Spoke with Dr. Johny Collazo at 9:23 pmt EST Electronically authenticated by: MOIZ BROWNING Date: 2022-04-14 21:31 Normal [facility] Covid-19 PCR (CVDTBH)on 03-29 SARS-CoV-2 (COVID-19) RNA KEATON+probe Ql (Unsp spec) Not detected Normal NOT DETECTED [facility] Comment on above: Result Comment: When diagnostic [...] for this test is supported by the [place] of Health and Human Service's declaration that [...] By: #### C VDTBH #### [facility] [address] [address] [address] Edilson Mortensen D-DIMERon 04-14-2022 D-DIMER 1.18 mg/L FEU Critically high <=0.59 [facility] Comment on above: Performed By: #### T HYLC #### [facility] [address] [place], [place] [address] Dr. Edilson Mortensen D-DIMER COMMENTS SEE BELOW Normal [facility] Comment on above: Result Comment: Incr eases [...] By: #### T HYLC #### [facility] [address] [place] [address] Dr. Edilson Mortensen PROF 14(COMP METB)on 022 Albumin [Mass/Vol] 3.2 g/dL Critically low 3.4-5.0 [facility] Comment on above: Performed By: #### I MARGE ESTRELLASC, VITB12 #### [facility] [address] [place] [address] Dr. Edilson Mortensen Albumin/Globulin [Mass ratio] 0.8 {ratio} Normal [facility] Comment on above: Performed By: #### I SAMEER PSASC, VITB12 #### [facility] [address] [place] [address] Dr. Edilson Mortensen ALP [Catalytic activity/Vol] 141 U/L Critically high 46-116 [facility] Comment on above: Performed By: #### I MARGE ESTRELLASC, VITB12 #### [facility] [address] [place] [address] Dr. Edilson Mortensen ALT [Catalytic activity/Vol] 13 U/L Critically low 16-63 [facility] Comment on above: Performed By: #### I SAMEER PSASC, VITB12 #### [facility] [address] [place] [address] Dr. Edilson Mortensen Anion gap [Moles/Vol] 13.7 mmol/L Normal [facility] Comment on above: Performed By: #### I SAMEER PSASC, VITB12 #### [facility] [address] [place] [address] Dr. Edilson Mortensen AST [Catalytic activity/Vol] 10 U/L Critically low 15-37 [facility] Comment on above: Performed By: #### I SAMEER PSASC, VITB12 #### [facility] [address] [address] [address] Edilson Mortensen Bilirubin [Mass/Vol] 0.2 mg/dL Normal 0.2-1.0 [facility] Comment on above: Performed By: #### I SAMEER, PSASC, VITB12 #### [facility] [address] [place] [address] Dr. Edilson Mortensen Calcium [Mass/Vol] 9.0 mg/dL Normal 8.5-10.1 [facility] Comment on above: Performed By: #### I SAMEER, PSASC, VITB12 #### [facility] [address] [place] [address] Dr. Edilson Mortensen Chloride [Moles/Vol] 104 mmol/L Normal 98-107 [facility] Comment on above: Performed By: #### I SAMEER, PSASC, VITB12 #### [facility] [address] [place] [address] Dr. Edilson Mortensen CO2 [Moles/Vol] 27.0 mmol/L Normal 21.0-32.0 [facility] Comment on above: Performed By: #### I SAMEER, PSASC, VITB12 #### [facility] [address] [place] [address] Dr. Edilson Mortensen Creatinine [Mass/Vol] 0.88 mg/dL Normal 0.70-1.30 [facility] Comment on above: Performed By: #### I SAMEER, PSASC, VITB12 #### [facility] [address] [place] [address] Dr. Edilson Mortensen EGFR-AF TURKISH >60 Normal >=60 [facility] Comment on above: Performed By: #### I SAMEER, PSASC, VITB12 #### [facility] [address] [place] [address] Dr. Edilson Mortensen EGFR-NON AF TURKISH >60 Normal >=60 [facility] Comment on above: Performed By: #### I SAMEER, PSASC, VITB12 #### [facility] [address] [place] [address] Dr. Edilson Mortensen Globulin (S) [Mass/Vol] 3.9 g/dL Normal [facility] Comment on above: Performed By: #### I MARGE ESTRELLASC, VITB12 #### [facility] [address] [address] [address] Edilson Mortensen Glucose [Mass/Vol] 92 mg/dL Normal 74-106 [facility] Comment on above: Performed By: #### I SAMEER PSASC, VITB12 #### [facility] [address] [address] [address] Edilson Mortensen Potassium [Moles/Vol] 4.0 mmol/L Normal 3.5-5.1 [facility] Comment on above: Performed By: #### I MARGE ESTRELLASC, VITB12 #### [facility] [address] [place] [address] Dr. Edilson Mortensen Protein [Mass/Vol] 7.1 g/dL Normal 6.4-8.2 [facility] Comment on above: Performed By: #### I MARGE ESTRELLASC, VITB12 #### [facility] [address] [address] [address] Edilson Mortensen Sodium [Moles/Vol] 141 mmol/L Normal 136-145 [facility] Comment on above: Performed By: #### I MARGE ESTRELLASC, VITB12 #### [facility] [address] [place] [address] Dr. Edilson Mortensen Urea nitrogen [Mass/Vol] 9.0 mg/dL Normal 7.0-18.0 [facility] Comment on above: Performed By: #### I MARGE ESTRELLASC, VITB12 #### [facility] [address] [place] [address] Dr. Edilson Mortensen Urea nitrogen/Creatinine [Mass ratio] 10.2 mg/mg Normal [facility] Comment on above: Performed By: #### I MARGE ESTRELLASC, VITB12 #### [facility] [address] [place] [address] Dr. Edilson Mortensen PROTIMEon 04-14-2022 INR Coag (PPP) [Relative time] {INR} Normal [facility] Comment on above: Performed By: #### T HYLC #### [facility] [address] [place] [address] Dr. Edilson Mortensen INR GUIDELINES SEE BELOW Normal [facility] Comment on above: Result Comment: GERARDO RED INR: 2.0 - 3.0 CONDITIONS NOT LISTED BELOW 2.5 - 3.5 FOR PROSTHETIC HEART VALVE REPLACEMENT 2.5 - 3.5 RECURRENT THROMBOSIS Performed By: #### T HYLC #### [facility] [address] [address] [address] Edilson Mortensen PT Coag (PPP) [Time] 9.7 s Normal 9.0-11.6 [facility] Comment on above: Performed By: #### T HYLC #### [facility] [address] [place], [place] [id number] Dr. Edilson Mortensen PTTon 04-14-2022 aPTT Coag (Bld) [Time] 28.5 s Normal 22.3-36.2 [facility] Comment on above: Performed By: #### T HYLC #### [facility] [address] [place] [address] Dr. Edilson Mortensen TROPONIN, HIGH SENSITIVITYon 04-14-2022 HSTROP 6.7 pg/mL Normal 4.0-76.1 [facility] Comment on above: Result Comment: CUT- OFF POINTS HAVE BEEN ESTABLISHED BASED ON THE FOURTH UNIVERSAL DEFINITIONS OF MYOCARDIAL INFARCTION. THE UPPER REFERENCE LIMIT (URL) OF TROPONIN, DEFINED THE 99TH PERCENTILE OF cTnI DISTRIBUTION IN A REFERENCE POPULATION, HAS BEEN CONFIRMED THE DECISION THRESHOLD FOR MD DIAGNOSIS. Performed By: #### I SAMEER, PSASC, VITB12 #### [facility] [address] [place] [address] Dr. Edilson Mortensen XR CHEST 1 Von [...] by: SAMANTA JENNINGS Date: 2022-04-14 18:40 Normal [facility] XR CSPINE 2_3 VIEWSon 2021 XR CSPINE [...] by: SAMANTA PLASCENCIA Date: 2022-03-16 07:11 Normal [facility] Activated partial thrombopla stin time (aPTT) in platelet poor plasma by coagulation aOrdered By: Antwon Hastings on 02-28-2022 aPTT Coag (PPP) [Time] 24.3 s 25.1-36.5 [facility] [facility] Albumin [Mass/volume] in Ser um or PlasmaOrdered By: Laura Yu on 02-28-2022 Albumin [Mass/Vol] 3.5 g/dL 3.2-5.5 [facility] Basophils Auto (Bld) [#/Vol] Ordered By: Antwon Hastings on 02-28-2022 Basophils (Bld) [#/Vol] 0.0 10*3/uL 0.0-0.2 [facility] Basophils Auto (Bld) [#/Vol] Ordered By: Laura Yu on 02-28-2022 Basophils (Bld) [#/Vol] 0.1 10*3/uL 0.0-0.2 [facility] Basophils/100 WBC Auto (Bld) Ordered By: Antwon Hastings on 02-28-2022 Basophils/100 WBC (Bld) 0.3 % [facility] Basophils/100 WBC Auto (Bld) Ordered By: Laura Yu on 02-28-2022 Basophils/100 WBC (Bld) 0.6 % [facility] Blood hemoglobin measurement (mass/volume)Ordered By: Antwon Hastings on 02-28-2022 Hemoglobin (Bld) [Mass/Vol] 15.3 g/dL 13.0-17.0 [facility] Blood hemoglobin measurement (mass/volume)Ordered By: Laura Yu on 02-28-2022 Hemoglobin (Bld) [Mass/Vol] 15.1 g/dL 13.0-17.0 [facility] Blood leukocytes automated c ount (number/volume)Ordered By: Antwon Hastings on 02-28-2022 WBC (Bld) [#/Vol] 13.1 10*3/uL 4.5-11.0 [facility] Blood leukocytes automated c ount (number/volume)Ordered By: Laura Yu on 02-28-2022 WBC (Bld) [#/Vol] 13.1 10*3/uL 4.5-11.0 [facility] COVID-19 Positive/NegativeOr dered By: Laura Yu on 02-28-2022 SARS-CoV-2 (COVID-19) N gene KEATON+probe Ql (Resp) Negative Negative [facility] Comment on above: Testing for SARS-CoV -2 by RT-PCR This test was developed and its performance characteristics determined by [employer] ([employer]) and validated at the [facility]. This test has not been [...] (COVID-19) Ag IA.rapid Ql (Resp) Negative Negative [facility] Comment on above: This is a duplicate Iraida SARS Antigen (HAILEE) result to be used for statistical tracking purpose only. Creatinine and Glomerular fi ltration rate.predicted panel (S/P/Bld)Ordered By: Antwon Hastings on 02-28-2022 Creatinine [Mass/Vol] 1.00 mg/dL 0.64-1.27 [facility] Creatinine and Glomerular fi ltration rate.predicted panel (S/P/Bld)Ordered By: Laura Yu on 02-28-2022 Creatinine [Mass/Vol] 0.97 mg/dL 0.64-1.27 [facility] Eosinophils Auto (Bld) [#/Vo l]Ordered By: Antwon Hastings on 02-28-2022 Eosinophils (Bld) [#/Vol] 0.0 10*3/uL 0.0-0.45 [facility] Eosinophils Auto (Bld) [#/Vo l]Ordered By: Laura Yu on 02-28-2022 Eosinophils (Bld) [#/Vol] 0.0 10*3/uL 0.0-0.45 [facility] Eosinophils/100 WBC Auto (Bl d)Ordered By: Antwon Hastings on 02-28-2022 Eosinophils/100 WBC (Bld) 0.4 % [facility] Eosinophils/100 WBC Auto (Bl d)Ordered By: Laura Yu on 02-28-2022 Eosinophils/100 WBC (Bld) 0.1 % [facility] Erythrocyte distribution wid th Auto (RBC) [Ratio]Ordered By: Antwon Hastings on 02-28-2022 Erythrocyte distribution width (RBC) [Ratio] 13.3 % 12.0-14.8 [facility] Erythrocyte distribution wid th Auto (RBC) [Ratio]Ordered By: Laura Yu on 02-28-2022 Erythrocyte distribution width (RBC) [Ratio] 13.3 % 12.0-14.8 [facility] Estimated glomerular filtrat ion rate (GFR) non- AmericanOrdered By: Antwon Hastings on 02-28-2022 GFR/1.73 sq M.predicted among non-blacks MDRD (S/P/Bld) [Vol rate/Area] > 60 mL/Min [facility] Estimated glomerular filtrat ion rate (GFR) non- AmericanOrdered By: Laura Yu on 02-28-2022 GFR/1.73 sq M.predicted among non-blacks MDRD (S/P/Bld) [Vol rate/Area] > 60 mL/Min [facility] Globulin Calc (S) [Mass/Vol] Ordered By: Laura Yu on 02-28-2022 Globulin (S) [Mass/Vol] 2.7 g/dL [facility] Hematocrit Auto (Bld) [Volum e fraction]Ordered By: Antwon Hastings on 02-28-2022 Hematocrit (Bld) [Volume fraction] 43.3 % 38.8-50.0 [facility] Hematocrit Auto (Bld) [Volum e fraction]Ordered By: Laura Yu on 02-28-2022 Hematocrit (Bld) [Volume fraction] 44.1 % 38.8-50.0 [facility] Laboratory - Chemistry and C hemistry - challengeOrdered By: Antwon Hastings on 02-28-2022 Natriuretic peptide B (Bld) [Mass/Vol] 79.0 pg/mL 5-100 [facility] Laboratory - CoagulationOrde red By: Antwon Hastings on 02-28-2022 PT Coag (PPP) [Time] 10.0 s 9.0-12.9 [facility] Laboratory - CoagulationOrde red By: Laura Yu on 02-28-2022 PT Coag (PPP) [Time] 10.0 s 9.0-12.9 [facility] Laboratory - Hematology and Cell countsOrdered By: Antwon Hastings on 02-28-2022 Nucleated RBC/100 WBC (Bld) [Ratio] 0.0 % 0-0.5 [facility] Laboratory - Hematology and Cell countsOrdered By: Laura Yu on 02-28-2022 Nucleated RBC/100 WBC (Bld) [Ratio] 0.1 % 0-0.5 [facility] Lymphocytes Auto (Bld) [#/Vo l]Ordered By: Antwon Hastings on 02-28-2022 Lymphocytes (Bld) [#/Vol] 2.0 10*3/uL 1.00-4.8 [facility] Lymphocytes Auto (Bld) [#/Vo l]Ordered By: Laura Yu on 02-28-2022 Lymphocytes (Bld) [#/Vol] 1.2 10*3/uL 1.00-4.8 [facility] Lymphocytes/100 WBC Auto (Bl d)Ordered By: Antwon Hastings on 02-28-2022 Lymphocytes/100 WBC (Bld) 15.3 % [facility] Lymphocytes/100 WBC Auto (Bl d)Ordered By: Laura Yu on 02-28-2022 Lymphocytes/100 WBC (Bld) 9.5 % [facility] MCH Auto (RBC) [Entitic mass ]Ordered By: Antwon Hastings on 02-28-2022 MCH (RBC) [Entitic mass] 34.9 pg 27.5-35.2 [facility] MCH Auto (RBC) [Entitic mass ]Ordered By: Laura Yu on 02-28-2022 MCH (RBC) [Entitic mass] 33.9 pg 27.5-35.2 [facility] MCHC Auto (RBC) [Mass/Vol]Or dered By: Antwon Hastings on 02-28-2022 MCHC (RBC) [Mass/Vol] 35.2 g/dL 32.5-35.6 [facility] MCHC Auto (RBC) [Mass/Vol]Or dered By: Laura Yu on 02-28-2022 MCHC (RBC) [Mass/Vol] 34.3 g/dL 32.5-35.6 [facility] MCV Auto (RBC) [Entitic vol] Ordered By: Antwon Hastings on 02-28-2022 MCV (RBC) [Entitic vol] 99.0 fL 83.5-101 [facility] MCV Auto (RBC) [Entitic vol] Ordered By: Laura Yu on 02-28-2022 MCV (RBC) [Entitic vol] 98.6 fL 83.5-101 [facility] Monocytes Auto (Bld) [#/Vol] Ordered By: Antwon Hastings on 02-28-2022 Monocytes (Bld) [#/Vol] 0.8 10*3/uL 0.0-0.8 [facility] Monocytes Auto (Bld) [#/Vol] Ordered By: Laura Craigimore on 02-28-2022 Monocytes (Bld) [#/Vol] 1.0 10*3/uL 0.0-0.8 [facility] Monocytes/100 WBC Auto (Bld) Ordered By: Antwon Hastings on 02-28-2022 Monocytes/100 WBC (Bld) 6.2 % [facility] Monocytes/100 WBC Auto (Bld) Ordered By: Laura Kramerore on 02-28-2022 Monocytes/100 WBC (Bld) 7.6 % [facility] Neutrophils Auto (Bld) [#/Vo l]Ordered By: Atnwon Hastings on 02-28-2022 Neutrophils (Bld) [#/Vol] 10.2 10*3/uL 1.8-7.7 [facility] Neutrophils Auto (Bld) [#/Vo l]Ordered By: Laura Kramerore on 02-28-2022 Neutrophils (Bld) [#/Vol] 10.8 10*3/uL 1.8-7.7 [facility] Neutrophils/100 WBC Auto (Bl d)Ordered By: Antwon Hastings on 02-28-2022 Neutrophils/100 WBC (Bld) 77.8 % [facility] Neutrophils/100 WBC Auto (Bl d)Ordered By: Laura Yu on 02-28-2022 Neutrophils/100 WBC (Bld) 82.2 % [facility] No Panel InformationOrdered By: Antwon Hastings on 02-28-2022 Estimated GFR () > 60 mL/Min [facility] Comment on above: GFR estimated refere nce range: According to KDOQI guidelines, <60 ml/min/1.73m2 is sufficient to diagnose a patient with chronic kidney disease. Pharmacy Creatinine Clearance (Chem 72.57 [facility] No Panel InformationOrdered By: Laura Yu on 02-28-2022 Estimated GFR () > 60 mL/Min [facility] Comment on above: GFR estimated refere nce range: According to KDOQI guidelines, <60 ml/min/1.73m2 is sufficient to diagnose a patient with chronic kidney disease. Pharmacy Creatinine Clearance (Chem 74.82 [facility] SARS Antigen (LFIA) [facility] Platelet mean volume Auto (B ld) [Entitic vol]Ordered By: Antwon Hastings on 02-28-2022 Platelet mean volume (Bld) [Entitic vol] 6.4 fL 6.6-10.1 [facility] Platelet mean volume Auto (B ld) [Entitic vol]Ordered By: Laura Yu on 02-28-2022 Platelet mean volume (Bld) [Entitic vol] 6.4 fL 6.6-10.1 [facility] Platelet poor plasma interna tional normalized ratio (INR) by coagulation assay (relatOrdered By: Antwon Hastings on 02-28-2022 INR Coag (PPP) [Relative time] 0.9 {INR} [facility] Comment on above: INR Therapeutic [...] INR Coag (PPP) [Relative time] 0.9 {INR} [facility] Comment on above: INR Therapeutic [...] 02-28-2022 Platelets (Bld) [#/Vol] 316 10*3/uL 150-450 [facility] Platelets Auto (Bld) [#/Vol] Ordered By: Laura Yu on 02-28-2022 Platelets (Bld) [#/Vol] 316 10*3/uL 150-450 [facility] Protein [Mass/volume] in Ser um or PlasmaOrdered By: Laura Yu on 02-28-2022 Protein [Mass/Vol] 6.2 g/dL 6.1-7.9 [facility] RBC Auto (Bld) [#/Vol]Ordere d By: Antwon Hastings on 02-28-2022 RBC (Bld) [#/Vol] 4.38 10*6/uL 3.90-5.60 [facility] RBC Auto (Bld) [#/Vol]Ordere d By: Laura Yu on 02-28-2022 RBC (Bld) [#/Vol] 4.47 10*6/uL 3.90-5.60 [facility] Serum or plasma alanine bowden otransferase measurement without P-5'-P (enzymatic activiOrdered By: Laura Yu on 02-28-2022 ALT No additional P-5'-P [Catalytic activity/Vol] 25 U/L 10-60 [facility] Serum or plasma albumin/glob ulin mass ratioOrdered By: Laura Yu on 02-28-2022 Albumin/Globulin [Mass ratio] 1.3 {ratio} [facility] Serum or plasma alkaline mariella sphatase measurement (enzymatic activity/volume)Ordered By: Laura Yu on 02-28-2022 ALP [Catalytic activity/Vol] 67 U/L 32-92 [facility] Serum or plasma aspartate am inotransferase measurement (enzymatic activity/volume)Ordered By: Laura Yu on 02-28-2022 AST [Catalytic activity/Vol] 14 U/L 10-42 [facility] Serum or plasma calcium carlos urement (mass/volume)Ordered By: Antwon Hastings on 02-28-2022 Calcium [Mass/Vol] 9.0 mg/dL 8.2-10.2 [facility] Serum or plasma calcium carlos urement (mass/volume)Ordered By: Laura Yu on 02-28-2022 Calcium [Mass/Vol] 9.0 mg/dL 8.2-10.2 [facility] Serum or plasma chloride french surement (moles/volume)Ordered By: Antwon Hastings on 02-28-2022 Chloride [Moles/Vol] 97 mmol/L 95-114 [facility] Serum or plasma chloride frenhc surement (moles/volume)Ordered By: Laura Yu on 02-28-2022 Chloride [Moles/Vol] 100 mmol/L 95-114 [facility] Serum or plasma glucose carlos urement (mass/volume)Ordered By: Antwon Hastings on 02-28-2022 Glucose [Mass/Vol] 130 mg/dL 70-100 [facility] Comment on above: ADA recommended refe rence range Random Glucose Reference Range is dependent on time and content of last meal. Glucose of more than 200 mg/dL in a nonstressed, ambulatory subject supports the diagnosis of Diabetes Mellitus. Serum or plasma glucose carlos urement (mass/volume)Ordered By: Laura Yu on 02-28-2022 Glucose [Mass/Vol] 123 mg/dL 70-100 [facility] Comment on above: ADA recommended refe rence rangeRandom Glucose Reference Range is dependent on time and content of last meal. Glucose of more than 200 mg/dL in a nonstressed, ambulatory subject supports the diagnosis of Diabetes Mellitus. Serum or plasma potassium me asurement (moles/volume)Ordered By: Antwon Hastings on 02-28-2022 Potassium [Moles/Vol] 3.9 mmol/L 3.5-5.1 [facility] Serum or plasma potassium me asurement (moles/volume)Ordered By: Laura Yu on 02-28-2022 Potassium [Moles/Vol] 4.1 mmol/L 3.5-5.1 [facility] Serum or plasma sodium measu rement (moles/volume)Ordered By: Antwon Hastings on 02-28-2022 Sodium [Moles/Vol] 133 mmol/L 136-146 [facility] Serum or plasma sodium measu rement (moles/volume)Ordered By: Laura Yu on 02-28-2022 Sodium [Moles/Vol] 133 mmol/L 136-146 [facility] Serum or plasma total biliru bin measurement (mass/volume)Ordered By: Laura Yu on 02-28-2022 Bilirubin [Mass/Vol] 0.4 mg/dL 0.3-1.2 [facility] Serum or plasma total carbon dioxide measurement (moles/volume)Ordered By: Antwon Hastings on 02-28-2022 CO2 [Moles/Vol] 24.7 mmol/L 22.0-30.0 [facility] Serum or plasma total carbon dioxide measurement (moles/volume)Ordered By: Laura Yu on 02-28-2022 CO2 [Moles/Vol] 23.7 mmol/L 22.0-30.0 [facility] Serum or plasma urea nitroge n measurement (mass/volume)Ordered By: Antwon Hastings on 02-28-2022 Urea nitrogen [Mass/Vol] 13 mg/dL 07-21 [facility] Serum or plasma urea nitroge n measurement (mass/volume)Ordered By: Laura Yu on 02-28-2022 Urea nitrogen [Mass/Vol] 13 mg/dL 07-21 [facility] Amphetamine Screen Ql (U)Ord ered By: Mitchel De Los Santos on 02-08-2022 Amphetamines Ql (U) Negative Negative [facility] Barbiturates [Presence] in U rineOrdered By: Mitchel De Los Santos on 02-08-2022 Barbiturates Ql (U) Negative Negative [facility] Benzodiazepines [Presence] i n UrineOrdered By: Mitchel De Los Santos on 02-08-2022 Benzodiazepines Ql (U) Negative Negative [facility] Cannabinoids [Presence] in U rine by Screen methodOrdered By: Mitchel De Los Santos on 02-08-2022 Cannabinoids Screen Ql (U) Positive Negative [facility] Comment on above: These are [...] on 02-08-2022 Opiates Ql (U) Negative Negative [facility] Phencyclidine Screen Ql (U)O rdered By: Mitchel De Los Santos on 02-08-2022 Phencyclidine Ql (U) Negative Negative [facility] Urine cocaine detectionOrder ed By: Mitchel De Los Santos on 02-08-2022 Cocaine Ql (U) Negative Negative [facility] COVID-19 SOFIAOrdered By: Do henny Quintanilla on 02-06-2022 SARS-CoV+SARS-CoV-2 (COVID-19) Ag IA.rapid Ql (Resp) Negative Negative [facility] Comment on above: This is a duplicate Iraida SARS Antigen (HAILEE) result to be used for statistical tracking purpose only. No Panel InformationOrdered By: Yury Quintanilla on 02-06-2022 SARS Antigen (LFIA) [facility] Cardiovascular Lab Reporton 01-21-2019 Cardiovascular Lab Report [facility] Patient Name: Mary Aburto [facility] MR #: [id number] Physician: Theodora Bundy of [facility] Date: 01/21/2019 Division of Birthdate: 1960 Cardiology Room #: [facility] Cardiovascular Services [place] [id number] Cardiovascular Laboratory Report INDICATION: The patient is [...] signed informed consent. He was brought to labeling strategist in a fasting state. The left wrist area was prepped and draped in usual fashion. Chas's test was favorable. Access in the left radial artery was obtained using micropuncture technique, a 6-[place] x 11 cm Hydrophilic sheath was advanced. Verapamil was given through the sheath and heparin was administered intravenously. Bilateral selective coronary angiography was then performed using 6-[place] Island[place] JL4 and JR4 diagnostic catheters. Catheters were [...] up in Cardiology Clinic. Electronically Signed by: Theodora Banks M.D. 02/02/2019 06:04 P Theodora Banks M.D. Date Dict: 01/21/2019/02:15 P/Theodora Banks M.D. Date Trans: 01/21/2019 04:37 P/sidney [id number] cc: Yury Quintanilla M.D. [address] [place] [id number] [facility] Vital Signs Date Time Vital Sign Value Performing Clinician Facility 05-26-2024 07:45-0400 Heart rate 59 /min Damián Estrada [facility] 05-26-2024 07:45-0400 SaO2% (BldA) [Mass fraction] 97 % Damián Estrada [facility] 05-26-2024 07:44-0400 Body temperature 97.52 [degF] Damián Estrada [facility] 05-26-2024 07:44-0400 Diastolic blood pressure 80 mm[Hg] Damián Sean [facility] 05-26-2024 07:44-0400 Mean blood pressure 93 mm[Hg] Damián Estrada [facility] 05-26-2024 07:44-0400 Systolic blood pressure 120 mm[Hg] Damián Estrada [facility] 05-26-2024 07:44-0400 Respiratory rate 16 /min Damián Estrada [facility] 04-10-2024 08:31-0400 Body height 177.8 cm MD Yury Quintanilla Work Phone: [facility] 04-10-2024 08:31-0400 Body mass index (BMI) [Ratio] 21.8 kg/m2 MD Yury Quintanilla Work Phone: [facility] 04-10-2024 08:31-0400 Body weight 68.94 kg MD Yury Quintanilla Work Phone: [facility] 02-28-2024 15:25-0400 Diastolic blood pressure 85 mm[Hg] Damián Estrada [facility] 02-28-2024 15:25-0400 Heart rate 76 /min Damián Estrada [facility] 02-28-2024 15:25-0400 Mean blood pressure 97 mm[Hg] Damáin Estrada [facility] 02-28-2024 15:25-0400 Respiratory rate 16 /min Damián Estrada [facility] 02-28-2024 15:25-0400 Systolic blood pressure 120 mm[Hg] Damián Estrada [facility] 01-23-2024 15:12-0400 Heart rate 58 /min Damián Estrada [facility] 01-23-2024 15:12-0400 SaO2% (BldA) [Mass fraction] 97 % Damián Estrada [facility] 01-23-2024 15:12-0400 Diastolic blood pressure 84 mm[Hg] Damián Estrada [facility] 01-23-2024 15:12-0400 Mean blood pressure 102 mm[Hg] Damián Estrada [facility] 01-23-2024 15:12-0400 Systolic blood pressure 139 mm[Hg] Damián Estrada [facility] 01-23-2024 14:59-0400 Diastolic blood pressure 95 mm[Hg] Damián Estrada [facility] 01-23-2024 14:59-0400 Heart rate 55 /min Damián Estrada [facility] 01-23-2024 14:59-0400 SaO2% (BldA) [Mass fraction] 100 % Steel Sean [facility] 01-23-2024 14:59-0400 Systolic blood pressure 129 mm[Hg] Damián Estrada [facility] 01-23-2024 14:32-0400 Heart rate 56 /min Steel Sean [facility] 01-23-2024 14:32-0400 SaO2% (BldA) [Mass fraction] 98 % Damián Sean [facility] 01-23-2024 14:32-0400 Body temperature 97.52 [degF] Damián Sean [facility] 01-23-2024 14:31-0400 Diastolic blood pressure 83 mm[Hg] Damián Estrada [facility] 01-23-2024 14:31-0400 Mean blood pressure 98 mm[Hg] Damián Estrada [facility] 01-23-2024 14:31-0400 Systolic blood pressure 126 mm[Hg] Damián Estrada [facility] 01-23-2024 14:30-0400 Respiratory rate 14 /min Damián Estrada [facility] 12-06-2023 10:29-0500 Respiratory rate 16 /min Damián Estrada [facility] 10-18-2023 14:49-0500 Diastolic blood pressure 80 mm[Hg] Damián Estrada [facility] 10-18-2023 14:49-0500 Heart rate 58 /min Damián Estrada [facility] 10-18-2023 14:49-0500 Mean blood pressure 89 mm[Hg] Damián Estrada [facility] 10-18-2023 14:49-0500 Respiratory rate 16 /min Damián Estrada [facility] 10-18-2023 14:49-0500 Systolic blood pressure 108 mm[Hg] Damián Estrada [facility] 08-14-2023 15:40-0400 Body height 177.8 cm Antwon Hastings Other [employer] Other 08-14-2023 15:40-0400 Body mass index (BMI) [Ratio] 22.24 kg/m2 Antwon Hastings Other [employer] Other 08-14-2023 15:40-0400 Body weight 70.31 kg Antwon Hastings Other [employer] Other 04-03-2023 15:40-0400 Body height 177.8 cm Antwon Hastings Other [employer] Other 04-03-2023 15:40-0400 Body mass index (BMI) [Ratio] 7.32 kg/m2 Antwon Hastings Other [employer] Other 04-03-2023 15:40-0400 Body weight 23.13 kg Antwon Hastings Other [employer] Other 02-27-2023 14:00-0400 Body height 177.8 cm Antwon Hastings Other [employer] Other 02-27-2023 14:00-0400 Body mass index (BMI) [Ratio] 21.66 kg/m2 Antwon Hastings Other [employer] Other 02-27-2023 14:00-0400 Body weight 68.49 kg Antwon Hastings Other [employer] Other 02-27-2023 14:00-0400 Diastolic blood pressure 80 mm[Hg] Antwon Hastings Other [employer] Other 02-27-2023 14:00-0400 Systolic blood pressure 128 mm[Hg] Antwon Hastings Other [employer] Other 02-14-2023 07:57-0400 Body temperature 97.5 [degF] MD Yury Quintanilla Work Phone: [facility] 02-14-2023 07:57-0400 Diastolic blood pressure 85 mm[Hg] MD Yury Quintanilla Work Phone: [facility] 02-14-2023 07:57-0400 Heart rate 89 /min MD Yury Quintanilla Work Phone: [facility] 02-14-2023 07:57-0400 Respiratory rate 18 /min MD Yury Quintanilla Work Phone: [facility] 02-14-2023 07:57-0400 SaO2% (BldA) [Mass fraction] 97 % MD Yury Quintanilla Work Phone: [facility] 02-14-2023 07:57-0400 Systolic blood pressure 135 mm[Hg] MD Yury Quintanilla Work Phone: [facility] 02-14-2023 06:00-0400 Body weight 75.9 kg MD Yury Quintanilla Work Phone: [facility] 02-13-2023 08:32-0400 Inhaled oxygen flow rate 2 L/min MD Yury Quintanilla Work Phone: [facility] 02-12-2023 07:33-0400 Body mass index (BMI) [Ratio] 22.4 kg/m2 MD Yury Quintanilla Work Phone: [facility] 02-12-2023 07:00-0400 Body height 175.26 cm MD Yury Quintanilla Work Phone: [facility] 01-11-2023 09:40-0400 Body height 177.8 cm Antwon Hastings Other [employer] Other 01-11-2023 09:40-0400 Body mass index (BMI) [Ratio] 20.37 kg/m2 Antwon Hastings Other [employer] Other 01-11-2023 09:40-0400 Body weight 64.41 kg Antwon Hastings Other [employer] Other 01-11-2023 09:40-0400 Diastolic blood pressure 90 mm[Hg] Antwon Hastings Other [employer] Other 01-11-2023 09:40-0400 Systolic blood pressure 128 mm[Hg] Antwon Hastings Other [employer] Other 12-07-2022 12:40-0500 Body height 177.8 cm Antwon Hastings Other [employer] Other 12-07-2022 12:40-0500 Body mass index (BMI) [Ratio] 20.37 kg/m2 Antwon Hastings Other [employer] Other 12-07-2022 12:40-0500 Body weight 64.41 kg Antwon Hastings Other [employer] Other 12-07-2022 12:40-0500 Respiratory rate 16 /min Antwon Hastings Other [employer] Other 08-01-2022 10:00-0400 Body height 177.8 cm Antwon Hastings Other [employer] Other 08-01-2022 10:00-0400 Body mass index (BMI) [Ratio] 20.37 kg/m2 Antwon Hastings Other [employer] Other 08-01-2022 10:00-0400 Body weight 64.41 kg Antwon Hastings Other [employer] Other 05-11-2022 11:40-0400 Body height 177.8 cm Antwon Hastings Other [employer] Other 05-11-2022 11:40-0400 Body mass index (BMI) [Ratio] 20.37 kg/m2 Antwon Hastings Other [employer] Other 05-11-2022 11:40-0400 Body weight 64.41 kg Antwon Hastings Other [employer] Other 03-16-2022 10:00-0400 Body height 177.8 cm Antwon Hastings Other [employer] Other 03-16-2022 10:00-0400 Body mass index (BMI) [Ratio] 20.43 kg/m2 Antwon Hastings Other [employer] Other 03-16-2022 10:00-0400 Body weight 64.59 kg Antwon Hastings Other [place] [employer] Other 03-02-2022 15:59-0400 Body temperature 97.6 [degF] MD Yury Quintanilla Work Phone: [facility] 03-02-2022 15:59-0400 Diastolic blood pressure 86 mm[Hg] MD Yury Quintanilla Work Phone: [facility] 03-02-2022 15:59-0400 Heart rate 82 /min MD Yury Quintanilla Work Phone: [facility] 03-02-2022 15:59-0400 Respiratory rate 16 /min MD Yury Quintanilla Work Phone: [facility] 03-02-2022 15:59-0400 SaO2% (BldA) [Mass fraction] 95 % MD Yury Quintanilla Work Phone: [facility] 03-02-2022 15:59-0400 Systolic blood pressure 144 mm[Hg] MD Yury Quintanilla Work Phone: [facility] 03-02-2022 05:30-0400 Body weight 69 kg MD Yury Quintanilla Work Phone: [facility] 03-01-2022 19:34-0400 Inhaled oxygen flow rate 2 L/min MD Yury Quintanilla Work Phone: [facility] 03-01-2022 16:00-0400 Body height 175.26 cm MD Yury Quintanilla Work Phone: [facility] 03-01-2022 09:37-0400 Body mass index (BMI) [Ratio] 22.4 kg/m2 MD Yury Quintanilla Work Phone: [facility] 02-28-2022 12:21-0400 Diastolic blood pressure 102 mm[Hg] MD Yury Quintanilla Work Phone: [facility] 02-28-2022 12:21-0400 Heart rate 60 /min MD Yury Quintanilla Work Phone: [facility] 02-28-2022 12:21-0400 Respiratory rate 20 /min MD Yury Quintanilla Work Phone: [facility] 02-28-2022 12:21-0400 SaO2% (BldA) [Mass fraction] 98 % MD Yury Quintanilla Work Phone: [facility] 02-28-2022 12:21-0400 Systolic blood pressure 163 mm[Hg] MD Yury Quintanilla Work Phone: [facility] 02-28-2022 11:16-0400 Body temperature 98 [degF] MD Yury Quintanilla Work Phone: [facility] 02-28-2022 08:55-0400 Body height 175.26 cm MD Yury Quintanilla Work Phone: [facility] 02-28-2022 08:55-0400 Body mass index (BMI) [Ratio] 21.2 kg/m2 MD Yury Quintanilla Work Phone: [facility] 02-28-2022 08:55-0400 Body weight 65.31 kg MD Yury Quintanilla Work Phone: [facility] 02-23-2022 09:20-0400 Body height 177.8 cm Antwon Hastings Other [email or web address] Other 02-23-2022 09:20-0400 Body mass index (BMI) [Ratio] 20.66 kg/m2 Antwon Hastings Other [employer] Other 02-23-2022 09:20-0400 Body weight 65.32 kg Antwon Hastings Other [facility] [employer] Other 02-08-2022 16:10-0400 Diastolic blood pressure 81 mm[Hg] MD Yury Quintanilla Work Phone: [facility] 02-08-2022 16:10-0400 Heart rate 59 /min MD Yury Quintanilla Work Phone: [facility] 02-08-2022 16:10-0400 Respiratory rate 16 /min MD Yury Quintanilla Work Phone: [facility] 02-08-2022 16:10-0400 SaO2% (BldA) [Mass fraction] 100 % MD Yury Quintanilla Work Phone: [facility] 02-08-2022 16:10-0400 Systolic blood pressure 132 mm[Hg] MD Yury Quintanilla Work Phone: [facility] 02-08-2022 15:41-0400 Body height 175.26 cm MD Yury Quintanilla Work Phone: [facility] 02-08-2022 15:41-0400 Body mass index (BMI) [Ratio] 21.4 kg/m2 MD Yury Quintanilla Work Phone: [facility] 02-08-2022 15:41-0400 Body weight 66 kg MD Yury Quintanilla Work Phone: [facility] 02-08-2022 12:36-0400 Body temperature 98.5 [degF] MD Yury Quintanilla Work Phone: [facility] 01-26-2022 07:47-0400 Diastolic blood pressure 100 mm[Hg] MD Yury Quintanilla Work Phone: [facility] 01-26-2022 07:47-0400 Heart rate 80 /min MD Yury Quintanilla Work Phone: [facility] 01-26-2022 07:47-0400 Respiratory rate 16 /min MD Yury Quintanilla Work Phone: [facility] 01-26-2022 07:47-0400 SaO2% (BldA) [Mass fraction] 98 % MD Yury Quintanilla Work Phone: [facility] 01-26-2022 07:47-0400 Systolic blood pressure 147 mm[Hg] MD Yury Quintanilla Work Phone: [facility] 01-26-2022 07:43-0400 Body height 175.26 cm MD Yury Quintanilla Work Phone: [facility] 01-26-2022 07:43-0400 Body weight 63.5 kg MD Yury Quintanilla Work Phone: [facility] Encounters Encounter Date Encounter Type Care Provider Facility Start: 05-26-2024 End: 05-26-2024 ambulatory Damián Estrada Facility[place] Start: 05-26-2024 End: 05-26-2024 Pain Management Damián Estrada [facility] Start: 05-19-2024 End: 05-19-2024 ambulatory [facility] Start: 04-10-2024 End: 04-10-2024 Patient encounter procedure MD Yury Quintanilla Work Phone: [facility] Work Phone: Start: 04-10-2024 End: 04-10-2024 ambulatory MD Yury Quintanilla Work Phone: [facility] Work Phone: Start: 02-28-2024 End: 02-28-2024 ambulatory DO Damián Estrada Facility[place] Start: 02-28-2024 End: 02-28-2024 Pain Management Damián Estrada [facility] Start: 01-23-2024 End: 01-23-2024 ambulatory Damián Estrada Facility:[facility] Start: 01-23-2024 End: 01-23-2024 Pain Management Damián Estrada [facility] Start: 12-20-2023 End: 12-20-2023 ambulatory [facility] Start: 12-06-2023 End: 12-06-2023 ambulatory Damián Estrada Facility:[facility] Start: 12-06-2023 End: 12-06-2023 Pain Management Damián Estrada [facility] Start: 12-05-2023 End: 12-07-2023 Pre-admission assessment Damián Estrada [facility] Start: 10-18-2023 End: 11-30-2023 Pre-admission assessment Damián Estrada [facility] Start: 10-18-2023 End: 10-18-2023 ambulatory Damián Estrada Facility:[facility] Start: 10-18-2023 End: 10-18-2023 Pain Management Damián Estrada [facility] Start: 10-12-2023 End: 10-12-2023 ambulatory Antwon Hastings Other [employer] [facility] [employer] Other Start: 10-12-2023 Telephone encounter Antwon Hastings [facility] Start: 08-29-2023 End: 08-29-2023 ambulatory Antwon Hastings Other [facility] [employer] Other Start: 08-29-2023 Telephone encounter Antwon Hastings [facility] [employer] Start: 08-14-2023 End: 08-14-2023 Patient encounter procedure MD Yury Quintanilla Work Phone: [facility] [place] Work Phone: Start: 08-14-2023 End: 08-14-2023 ambulatory MD Yury Quintanilla Work Phone: [facility] Work Phone: Start: 08-14-2023 Office outpatient visit 25 minutes Antwon Hastings [facility] Start: 05-22-2023 End: 05-22-2023 Patient encounter procedure MD Yury Quintanilla Work Phone: [facility] [place] Work Phone: Start: 05-22-2023 End: 05-22-2023 ambulatory Antwon Hastings Facility:[facility] Start: 04-23-2023 End: 04-23-2023 ambulatory Antwon Hastings Other [employer] Other Start: 04-23-2023 Telephone encounter Antwon Hastings [facility] Start: 04-16-2023 End: 04-16-2023 ambulatory Antwon Hastings Other [employer] Other Start: 04-16-2023 Telephone encounter Antwon Hastings [facility] Start: 04-03-2023 End: 04-03-2023 Patient encounter procedure MD Yury Quintanilla Work Phone: [facility] [place] Work Phone: Start: 04-03-2023 End: 04-03-2023 ambulatory MD Yury Quintanilla Work Phone: [facility] Work Phone: Start: 04-03-2023 Office outpatient visit 15 minutes Antwon Hastings [facility] Start: 03-27-2023 End: 03-27-2023 ambulatory Antwon Hastings Other [employer] Other Start: 03-27-2023 Telephone encounter Antwon Hastings [facility] Start: 03-05-2023 End: 03-05-2023 ambulatory Antwon Hastings Other [employer] Other Start: 03-05-2023 Telephone encounter Antwon Hastings [facility] Start: 02-27-2023 End: 02-27-2023 ambulatory Antwon Hastings Other [place] [employer] Other Start: 02-27-2023 Postop follow up vis it related to original px Antwon Hastings [facility] Start: 02-26-2023 End: 02-26-2023 ambulatory Antwon Hastings Other [facility] [employer] Other Start: 02-26-2023 Telephone encounter Antwon Hastings [facility] Start: 02-24-2023 End: 02-24-2023 ambulatory Antwon Hastings Other [employer] Other Start: 02-24-2023 Telephone encounter Antwon Hastings [facility] Start: 02-23-2023 End: 02-23-2023 ambulatory Antwon Hastings Other [place] Other Start: 02-23-2023 Telephone encounter Antwon Hastings [facility] Start: 02-17-2023 End: 02-17-[address] YURY QUINTANILLA . Facility: Start: 02-12-2023 End: 02-14-2023 Evaluation and management of inpatient MD Yury Quintanilla Work Phone: [facility] [place] [facility] Work Phone: Start: 01-29-2023 End: 01-29-2023 ambulatory MD Yury Quintanilla Work Phone: [facility] Work Phone: Start: 01-29-2023 End: 01-29-2023 Patient encounter procedure MD Yury Quintanilla Work Phone: [facility]-Pre-Surgical Testing Work Phone: Start: 01-11-2023 End: 01-11-2023 ambulatory Antwon Hastings Other [employer] [facility] [employer] Other Start: 01-11-2023 Office outpatient visit 40 minutes Antwon Hastings [facility] Start: 12-25-2022 End: 12-25-2022 ambulatory MD Yury Quintanilla Work Phone: [facility] Work Phone: Start: 12-25-2022 End: 12-25-2022 Patient encounter procedure MD Yury Quintanilla Work Phone: [facility]-MRI [facility] [place] Work Phone: Start: 12-07-2022 End: 12-07-2022 ambulatory Antwon Hastings Other [facility] [employer] Other Start: 12-07-2022 Office outpatient visit 15 minutes Antwon Hastings [facility] Start: 11-13-2022 End: 11-13-[address] YURY QUINTANILLA . Facility:[facility] Start: 10-23-2022 End: 10-23-2022 ambulatory MD Yury Quintanilla Work Phone: [facility] Work Phone: Start: 10-23-2022 End: 10-23-2022 Patient encounter procedure MD Yury Quintanilla Work Phone: [facility] [place] Work Phone: Start: 09-26-[address] YURY QUINTANILLA . Facili ty:[facility] Start: 08-01-2022 End: 08-01-2022 ambulatory Antwon Hastings Other [facility] [employer] Other Start: 08-01-2022 Office outpatient visit 15 minutes Antwon Hastings [facility] Start: 07-13-2022 End: 07-14-[address] YURY QUINTANILLA . Facility:[facility] Start: 07-06-2022 End: 07-07-[address] YURY QUINTANILLA . Facility:[facility] Start: 06-09-2022 End: 06-10-[address] YURY QUINTANILLA . Facility:[facility] Start: 05-11-2022 End: 05-11-2022 ambulatory Antwon Hastings Other [employer] Other Start: 05-11-2022 Postop follow up vis it related to original px Antwon Hastings [facility] Start: 05-11-2022 End: 05-11-2022 Patient encounter procedure MD Yury Quintanilla Work Phone: [facility] Start: 04-15-2022 End: 04-15-[address] YURY QUINTANILLA . Facility:[facility] Start: 03-23-2022 End: 03-23-2022 ambulatory Antwon Hastings Other [employer] Other Start: 03-23-2022 Telephone encounter Antwon Hastings [facility] Start: 03-16-2022 End: 03-16-2022 ambulatory Antwon Hastings Other [employer] Other Start: 03-16-2022 Postop follow up vis it related to original px Antwon Hastings [facility] Start: 03-15-2022 End: 03-16-[address] ANTWON HASTINGS Facility:[facility] Start: 03-07-2022 End: 03-07-2022 ambulatory Lele Fong Other [employer] Other Start: 03-07-2022 Telephone encounter Lele Fong [facility] Start: 03-02-[address] Rigo Hughes Fac ility:[facility] Start: 03-01-2022 [facility]mission to [facility] Antwon Hastings [facility] Start: 03-01-2022 End: 03-01-2022 ambulatory Antwon Hastings Other [employer] Other Start: 02-28-2022 End: 03-02-2022 Evaluation and management of inpatient MD Yury Quintanilla Work Phone: [facility] [place] [facility] Start: 02-28-[address] Rigo Hurd hailee Hughes Facility:[id number] Start: 02-23-2022 End: 02-23-2022 ambulatory Antwon Hastings Other [facility] [employer] Other Start: 02-23-2022 Office outpatient ne w 60 minutes Antwon Hastings [facility] Start: 02-08-2022 End: 02-08-2022 Admission to same day surgery center MD Yury Quintanilla Work Phone: [facility]-Surgery Center [facility] [place] Start: 02-06-2022 End: 02-06-2022 Patient encounter procedure MD Yury Quintanilla Work Phone: [facility]-Pre-Surgical Testing Start: 01-26-2022 End: 01-26-2022 Patient encounter procedure MD Yury Quintanilla Work Phone: [facility]-MRI [facility] [place] Start: 01-21-2019 End: 01-22-2019 Patient encounter procedure PROVIDER UNKNOWN Facility:[facility] Procedures Date Procedure Procedure Detail Performing Clinician [...] I SAMEER, PSASC, VITB12 #### [facility] [address] [place] [address] Dr. Edilson Mortensen Start: 05-11-2022 X-ray of [...] object) Damián Estrada Comment on above: Dr. Banks Bone structure of cl avicle (body structure) Damián Estrada Cervical laminectomy Agatha Estrada Plan of Treatment Date Care Activity Detail Author Start: 04-10-2024 Patient referral [facility] Work Phone: Start: 02-14-2023 [facility] Start: 02-12-2023 Fusion of 2 or more Cervical Vertebral Joints with Autologous Tissue Substitute, Posterior Approach, Posterior Column, Open Approach Fusion of 2 or more Cervical Vertebral Joints with Autologous Tissue Substitute, Posterior Approach, Posterior Column, Open Approach [facility] Start: 02-12-2023 Fusion of Cervicothoracic Vertebral Joint with Autologous Tissue Substitute, Posterior Approach, Posterior Column, Open Approach Fusion of Cervicothoracic Vertebral Joint with Autologous Tissue Substitute, Posterior Approach, Posterior Column, Open Approach [facility] Start: 02-12-2023 Fusion of Thoracic Vertebral Joint with Autologous Tissue Substitute, Posterior Approach, Posterior Column, Open Approach Fusion of Thoracic Vertebral Joint with Autologous Tissue Substitute, Posterior Approach, Posterior Column, Open Approach [facility] Start: 02-12-2023 Removal of Internal Fixation Device from Cervical Vertebral Joint, Open Approach Removal of Internal Fixation Device from Cervical Vertebral Joint, Open Approach [facility] Start: 10-23-2022 X-ray of cervical spine XR cerv spine AP/LAT/FLX/EXT [facility] Start: 10-23-2022 XR Cervical spine 4 Views [facility] Start: 03-01-2022 X-ray of cervical spine XR cervical spine 2V [facility] Start: 02-28-2022 Fusion of 2 or more Cervical Vertebral Joints with Synthetic Substitute, Posterior Approach, Posterior Column, Open Approach [facility] Start: 02-28-2022 Introduction of Recombinant Bone Morphogenetic Protein into Joints, Open Approach [facility] Start: 02-08-2022 OR CAT/MRI W/ IV SEDATION (Not Applicable) OR CAT/MRI W/ IV SEDATION (Not Applicable) [facility] Start: 02-08-2022 MRI of cervical spine with contrast MR cervical spine wo/w con [facility] Patient Education Moderate and D eep Sedation in Adults General Anesthesia (DC) [facility] Work Phone: Patient referral [facility] Work Phone: Immunizations Immunization Date Immunization Notes Care Provider Fa cilidayne 11-09-2021 COVID-19 mRNA Comirnaty (Pfizer) MD Yury Quintanilla Work Phone: [facility] 02-28-2021 COVID-19 mRNA Comirnatmarisel (Pfizer) MD Yury Quintanilla Work Phone: [facility] 02-07-2021 COVID-19 mRNA Comirnatmarisel (Pfizer) MD Yury Quintanilla Work Phone: [facility] 07-31-2019 influenza virus vaccine, unspecified formulation Damián Estrada [facility] [place] Payers Date Payer Category Payer Unknown 2023 Medicare [id number] 2023 Self-pay [id number] 1960 Unknown [id number] 2.16.8 [id number] 1960 Unknown [id number] 2.16. [id number] 1962 Unknown [id number] 2.16. 840.1.815782.3.579.2.356 1962 Unknown [id number] 2.16.84 0.1.406950.3.579.2.593 1962 Unknown [id number] 2.16.84 0.1.816612.3.579.2.593 1962 Unknown [id number] 2.16.84 0.1.077001.3.579.2.593 1962 Unknown [id number] 2.16.84 0.1.118502.3.579.2.593 1962 Unknown [id number] 2.16.84 0.1.542553.3.579.2.593 1962 Unknown [id number] 2.16.84 0.1.550388.3.579.2.593 1962 Unknown [id number] 2.16.84 0.1.778481.3.579.2.593 1962 Unknown [id number] 2.16.84 0.1.468031.3.579.2.593 1962 Unknown [id number] 2.16.8 40.1.167309.3.579.2.727 1962 Unknown [id number] 2.16.8 40.1.956305.3.579.2.727 1962 Unknown [id number] 2.16.8 40.1.586889.3.579.2.727 1962 Unknown [id number] 2.16.8 40.1.223949.3.579.2.727 1962 Unknown [id number] 2.16.8 40.1.026396.3.579.2.727 1959 Unknown [id number] 1959 Unknown [id number] 2.16.8 40.1.667406.19 Unknown [id number] 2.16.8 40.1.733330.3.579.2.531 Unknown [id number] 2.16.8 40.1.863310.3.579.2.531 Unknown [id number] 2.16.8 40.1.816499.3.579.2.531 Social History Date Type Detail Facility Tobacco smoking stat [facility] Unknown if ever smoked [facility] Work Phone: Start: 1960 Sex Assigned At Male F [facility] Start: 09-10-2019 End: 02-08-2022 Tobacco smoking status UTIS Ex-smoker (finding) [facility] Start: 02-28-2022 Tobacco smoking stat [facility] Never smoked tobacco (finding) [facility] Sex Assigned At [facility] Tobacco smoking status Never [facility] Medical Equipment Procedure Code Equipment Code Equipment Origin al Text Equipment Identifier Dates Decompression, spine, cervical, posterior approach CANCELLOUS 30CC CRUSHED FDA Start: 03-01-2022 Decompression, spine, cervical, posterior approach Bone-screw internal spinal fixation system, non-sterile ()[id number] FDA Start: 03-01-2022 Decompression, spine, cervical, posterior approach Bone-screw internal spinal fixation system, non-sterile ()[id number] FDA Start: 03-01-2022 Decompression, spine, cervical, posterior approach Bone-screw internal spinal fixation system, non-sterile ()[id number] FDA Start: 03-01-2022 Decompression, spine, cervical, posterior approach Bone-screw internal spinal fixation system, non-sterile ()[id number] FDA Start: 03-01-2022 Decompression, spine, cervical, posterior approach Spinal fusion graft kit ()[id number] FDA Start: 03-01-2022 Decompression, spine, cervical, posterior approach Bone-screw internal spinal fixation system, non-sterile ()[id number] FDA Start: 03-01-2022 Decompression, spine, cervical, posterior approach Bone-screw internal spinal fixation system, non-sterile ()[id number] FDA Start: 03-01-2022 Decompression, spine, cervical, posterior approach Bone-screw internal spinal fixation system, non-sterile ()[id number] FDA Start: 03-01-2022 Decompression, spine, cervical, posterior approach Bone-screw internal spinal fixation system, non-sterile ()[id number] FDA Start: 03-01-2022 Decompression, spine, cervical, posterior approach Bone-screw internal spinal fixation system, non-sterile ()[id number] FDA Start: 03-01-2022 Decompression, spine, cervical, posterior approach Bone-screw internal spinal fixation system, non-sterile ()[id number] FDA Start: 03-01-2022 Decompression, spine, cervical, posterior [...] approach Bone-screw internal spinal fixation system, non-sterile ()[id number] FDA Start: 02-12-2023 Decompression, spine, cervical, posterior approach Spinal fusion graft kit ()[id number] FDA Start: 02-12-2023 Decompression, spine, cervical, posterior approach Bone-screw internal spinal fixation system, non-sterile ()[id number] FDA Start: 02-12-2023 Decompression, spine, cervical, posterior approach Bone-screw internal spinal fixation system, non-sterile ()[id number] FDA Start: 02-12-2023 Decompression, spine, cervical, posterior [...] /State Functional Status Date Assessment Result Facility 05-26-2024 Functional Status N/A [facility] 02-28-2024 Functional Status N/A [facility] 01-23-2024 Functional Status N/A [facility] 12-06-2023 Functional Status N/A [facility] 10-18-2023 Functional Status N/A [facility] 02-14-2023 Functional status Patient at Baseline [facility] Work Phone: 03-02-2022 Functional status Patient at Baseline [facility] Work Phone: 02-28-2022 Functional status Functional Status Comme nt [facility] Work Phone: Mental Status Date Assessment Result Facility 02-14-2023 Cognitive function Cognitive Sta tus Patient at Baseline [facility] Work Phone: 03-02-2022 Cognitive function Cognitive Sta tus Patient at Baseline [facility] Work Phone: Clinical Notes 02-23-2022 to 05-19-2024 Note Date & Type Note Facility 05-19-2024 Note [place] [facility] Subjective Mary Aburto is a 64 y.o. year old male patient being seen for 6 mo follow up CAD, hypertension, and AAA. Had echo last month. Says his chest pressure is occurring more often now. Denies SOB and LE edema. He does get lightheaded sometimes and can tell when his BP is low. Patient Active Problem List Diagnosis Cervical disc disorder with myelopathy Chest pain Coronary arteriosclerosis Hypertensive disorder Neck pain Right arm weakness Screening for malignant neoplasm of colon Cervical radiculopathy Status post arthrodesis History of fusion of cervical spine Spondylolisthesis, cervical region Family History Problem Relation Name Age of Onset Diabetes Mother Lung cancer Father Lung cancer Sister Social History Tobacco Use Smoking status: Former Types: Cigarettes Quit date: 2017 Years since quittin.5 Smokeless tobacco: Never Substance Use Topics Alcohol use: Yes Comment: occasional HPI Mary is seen in follow-up. He is a 64-year-old man with history of hypertension on treatment, ex-smoker [he smoked for about 41 years], positive family history for coronary disease, hyperlipidemia on treatment, prior history of transient ischemic attack in 2010 with carotid ultrasound showing no significant stenosis in either internal carotid arteries. He underwent cardiac cath on 01/21/2019 due to chest pain and abnormal stress test. This showed Absence of luminal coronary artery disease; however significant sluggish flow was noted throughout the arterial tree. He has an ascending aortic aneurysm that we are following with echocardiogram. Today he is seen in follow-up. He reports that he has been doing reasonably well from a cardiac perspective. He does complain of occasional palpitations that happen once a month lasting about a minute. No shortness of breath. He does have occasional chest pressure but no pain. His main issue is his bilateral arm pain and numbness related to his neck and back issues. He previously had 2 surgeries. He will be getting injections. He has not had any blood work. Review of Systems Constitutional: Positive for malaise/fatigue. Cardiovascular: Positive for chest pain ( pressure ) and palpitations ( not a whole lot , racing). Musculoskeletal: Positive for arthritis, back pain, joint pain and neck pain. Neurological: Positive for light-headedness. All other systems reviewed and are negative. Objective Visit Vitals BP 102/66 (BP Location: Right arm, Patient Position: Sitting) Pulse 76 Ht 1.753 m (5' 9 ) Wt 67.6 kg (149 lb) SpO2 95% BMI 22.00 kg/m??? Smoking Status Former BSA 1.81 m??? Physical Exam Constitutional: Appearance: He is well-developed. He is not ill-appearing. HENT: Head: Normocephalic and atraumatic. Nose: Nose normal. Eyes: General: No scleral icterus. Pupils: Pupils are equal, round, and reactive to light. Neck: Thyroid: No thyromegaly. Vascular: No JVD. Cardiovascular: Rate and Rhythm: Normal rate and regular rhythm. Pulses: Radial pulses are 2+ on the right side and 2+ on the left side. Heart sounds: Normal heart sounds. No murmur heard. No friction rub. No gallop. Pulmonary: Effort: Pulmonary effort is normal. No respiratory distress. Breath sounds: Normal breath sounds. No wheezing or rales. Chest: Chest wall: No tenderness. Abdominal: General: Bowel sounds are normal. There is no distension. Palpations: Abdomen is soft. Tenderness: There is no abdominal tenderness. Musculoskeletal: General: No swelling. Cervical back: Neck supple. Skin: General: Skin is warm and dry. Neurological: General: No focal deficit present. Mental Status: He is alert and oriented to person, place, and time. Psychiatric: Mood and Affect: Mood normal. Behavior: Behavior is cooperative. Judgment: Judgment normal. Allergies Allergies Allergen Reactions Ibuprofen Other Sulfa (Sulfonamide Antibiotics) Other and Swelling Penicillins Other, Rash and Swelling Medications Current Outpatient Medications: aspirin 81 mg EC tablet, Take 1 tablet by mouth in the morning., Disp: , Rfl: gabapentin (Neurontin) 600 mg tablet, Take 1 mg by mouth in the morning and at bedtime. TAKE 1 TABLET BY MOUTH IN THE MORNING AND 2 TABLETS AT BEDTIME, Disp: , Rfl: levothyroxine (Synthroid, Levoxyl) 75 mcg tablet, Take 1 tablet by mouth in the morning., Disp: , Rfl: oxaprozin (Daypro) 600 mg [...] 1.5 TABLETS EVERY EVENING, Disp: , Rfl: atorvastatin (Lipitor) 40 mg tablet, Take 1 tablet (40 mg) by m (more content not included)... [facility] 04-10-2024 Hospital Discharge instructions Ambulatory OrdersReferral to Neurology Time Frame: 04/10/24, Location: None [facility] Work Phone: 02-28-2024 Evaluation + Plan note [...] with any questions or concerns that arise. [facility]03-27-2024 Note [id number] [facility] 01-23-2024 NoteDiagnosis: M54.12, cervical radiculopathy Procedure: [...] the epidural space was confirmed using the rzyt-kz-ocxatijpng technique and 2 cc of air. Injection [...] procedure, and agrees to continue currently prescribed/recommended therapies.[facility] Comment on above:Result Comment: Electronically Signed By: Damián Estrada DO\.br\Date and Time Signed: 01/23/24 15:15 [id number] Note [id number] Evaluation + Plan noteExtracted from: [...] the epidural space was confirmed using the urpv-cq-ftblrsnczw technique and 2 cc of air. Injection [...] Date:02/28/2024 03:30:00 PM Scheduled Provider:Damián Estrada DO Location[facility] Appointment Type:Pain Management - Follow Up (FT) [facility]02-22-2024 NotePatient here for 1.5 year follow up CAD, AAA, hx of TIA and PE, and hypertension. [facility] is requesting he hold aspirin 6 days [...] quickly). All other systems reviewed and are negative.[facility] 12-20-2023 NoteCardiovascular Medicine [facility] SUBJECTIVE Chief Complaint Patient presents with [...] sx's of chest discomfort after starting baclofen. [place] like a sharp pain lasting seconds, occurred [...] disease Hyperlipidemia Hypertension Pulmonary embolism (CMS/HCC) Stroke (CMS/HCC) Family History Problem Relation Name Age of [...] Final Atrial Rate 01/21/2019 53 BPM Final MO Interval 01/21/2019 150 ms Final QRS DURATION 01/21/2019 90 ms Final QT Interval 01/21/2019 420 ms Final QTC CALCULATION(BEZET) 01/21/2019 394 ms Final P [place] 01/21/2019 33 degrees Final R-[place] 01/21/2019 53 degrees Final T Wave [place] 01/21/2019 66 degrees Final Diagnosis 01/21/2019 Final Value:Sinus bra (more content not included)...[facility]02-08-2024 Evaluation + Plan noteExtracted from: Title:Chronic pain [...] 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 [facility]12-21-2023 Evaluation + Plan noteExtracted from: Title:Pain Management * Author:Agatha Estrada DO [...] Date:11/29/2023 03:15:00 PM Scheduled Provider:Damián Estrada DO Location:FT.[facility] Appointment Type:Pain Management - Follow Up (FT) [facility]10-17-2023 Evaluation note* Encounter Date Diagnosis [...] Jul, Spondylolisthesis, cervical region (ICD-10 - M43.12) [facility] Other 06-06-2023 Evaluation note* Encounter Date Diagnosis [...] Mar, Spondylolisthesis, cervical region (ICD-10 - M43.12) [facility] Other 05-02-2023 Evaluation note* Encounter Date Diagnosis [...] February, Spondylolisthesis, cervical region (ICD-10 - M43.12) [facility] Other 03-16-2023 Evaluation note* Encounter Date Diagnosis [...] Dec, Spondylolisthesis, cervical region (ICD-10 - M43.12) [facility] Other 02-09-2023 Evaluation note* Encounter Date Diagnosis [...] Cervical radiculopathy at C8 (ICD-10 - M54.12) [facility] Other 10-04-2022 Evaluation note* Encounter Date Diagnosis Assessment Notes Treatment Notes Treatment Clinical Notes Jul, Cervical spondylosis with myelopathy (ICD-10 - M47.12) This patient had a very severe cervical myelopathy with right arm weakness, numbness, and some discomfort; he has gotten better with regard to his left arm, but his right arm is never fully recovered, having a weak [employer]raz[employer] line numbness and obvious atrophy of his hand [...] Jul, Spondylolisthesis, cervical region (ICD-10 - M43.12) [facility] Other 07-14-2022 Evaluation note* Encounter Date Diagnosis [...] of right upper extremity (ICD-10 - G56.21) [facility] Other 05-19-2022 Evaluation note* Encounter Date Diagnosis [...] take the brace off around that time. [facility] Other 05-05-2022 Progress note Author Antwon Hastings [facility] March 02, 2022 7:55am Note Date/Time March 02, 2022 7:55am [facility] [address] [place] [address] Neurosurgery Progress Note Signed Patient: Mary Aburto MR#: [id number] : 1960 Acct:[id number] Age/Sex: 62 / M Adm Date: 2 Loc: Room: [address] [place] [address] Type : ADM IN Attending Dr: Antwon [...] signed by MD Antwon Hastings> 03/02/22 0755 [facility] Work Phone: 1(108) 149-865805-04-2022 History and physical note Author Antwon Hastings [facility] March 01, 2022 8:22am Note Date/Time March 01, 2022 8:21am [facility] [address] [place] [address] Neurosurgery H&P Signed with Addenda Patient: Mary Abutro MR#: [id number] : 1960 Acct:[id number] Age/Sex: 62 / M Adm Date: 2 Loc: Room: [address] [place] [address] Type : ADM IN Attending Dr: Antwon [...] extend the fingers of his hand 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 He is developing significant shoulder pain. 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 and his right arm [...] % (Auto) 77.8, Lymph % (Auto) 15.3, [place] % (Auto) 6.2, Eos % (Auto) 0.4, Baso % (Auto) 0.3, Neut # (Auto) 10.2 H, Lymph # (Auto) 2.0, [place] # (Auto) 0.8, Eos # (Auto) 0.0, [...] % (Auto) 82.2, Lymph % (Auto) 9.5, [place] % (Auto) 7.6, Eos % (Auto) 0.1, Baso % (Auto) 0.6, Neut # (Auto) 10.8 H, Lymph # (Auto) 1.2, [place] # (Auto) 1.0 H, Eos # (Auto) [...] <Electronically signed by MD Antwon Hastings> 03/01/22820 [facility] Work Phone: 1(872) 811-766305-03-2022 Consult note Author W Deejay Hughes [facility] February 28, 2022 7:06pm Note Date/Time February 28, 2022 7:06pm [facility] [address] [place] [address] Cardiology Consult Note Signed Patient: Mary Aburto MR#: [id number] : 1960 Acct:[id number] Age/Sex: 62 / M Adm Date: 2 Loc: Room: [address] [place] [address] Type : ADM IN Attending Dr: Antwon [...] tingling. Pt has a PMHx of CAD, MD, HLD, HTN. He had been following up [...] cardiac arrest . This event occurred in [place], he recalls the history reasonably well, strangely, he states that he was only admitted for 4 to5 hours and discharged with no further follow-up. He denies any cardiac surgeryor stenting. 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 of right hand and shoulder) Extrem [...] x10E3/uL Lymph # (Auto) 1.2 (1.00-4.8) x10E3/uL [place] # (Auto) 1.0 H (0.0-0.8) x10E3/uL Eos [...] Lupe Hughes DO> 02/28/22 1906 [facility] Work Phone: 1(218) 580-206404-28-2022 Evaluation note* Encounter Date Diagnosis Assessment Notes [...] Cervical spondylosis with myelopathy (ICD-10 - M47.12) [facility] Other evaluation + Plan note Future Appointments Appointment Date:06/09/2024 08:45:00 AM Scheduled Provider: Location:[facility] Appointment Type:Surgery FT Appointment Date:06/25/2024 08:30:00 AM Scheduled Provider:Luz Hernandes PA-C Location:.[facility] [place] Appointment Type:Pain Management - Follow Up (FT) [facility] Evaluation noteNo assessment information available [facility] Work Phone: Evaluation note* Diagnosis Onset Date Resolution Status Cervical disc disorder with myelopathy acute Right arm weakness acute [facility] Work Phone: Evaluation noteNo InformationNortSurgical Specialty [facility] [employer] Other evaluation note* Diagnosis Onset Date Resolution Status Spinal stenosis of cervical region with radiculopathy acute [facility] Work Phone: Evaluation note* Diagnosis Onset Date Resolution Status History of fusion of cervical spine acute Spondylolisthesis, cervical region acute [facility] Work Phone: Hiswhjl general Narrative - Reported* Type Description Date Medical History thyroid disease Surgical History heart catheterization Style for [facility] [employer] Other History general Narrative - Reported* Type Description Date Medical History thyroid disease Surgical History heart catheterization Surgical History Posterior Cervical Fusion-Docto r Hastings Hospitalization History See Above [facility] Other History general Narrative - Reported* Type Description Date Medical History thyroid disease Medical History high cholesterol Surgical History heart catheterization Surgical History Posterior Cervical Fusion-Docto r Hastings Hospitalization History See Above [facility] Other History general Narrative - [facility]hel[facility] [employer] Other History general Narrative - Reported* Type Description Date Medical History thyroid disease Medical History high cholesterol Surgical History heart catheterization Surgical History Posterior Cervical Fusion-Docto r Hastings Surgical History PCD with fusion 2022 Hospitalization History See Above [facility] Other Hospital course Narrative No data available for this section [facility] Work Phone: Hospital Discharge instructions No data available for this section [facility] Dis[facility] instructionsAmbulatory Orders* Referral to Neurology Time Frame: 04/10/24, Location: None [facility] Work Phone: Progress note No data available for this section [facility] HospitalReason for visit NarrativePain Medicine Referral UpdateCerro G[place] [employer] Other Summary Purpose Family History No Family History Records Found Relationship Condition Age at Onset Recorded Date/T bradford father Malignant neoplasm of lung Unknown Not Specified Diabetes mellitus Unknown sister Malignant neoplasm Unknown Advance Directives No Advanced Directives Records Found Advance Directive Response Recorded Date/ Time Advance Directives No January 19, 022 3:41pm Advance Directive Response Recorded Date/ Time Advance Directives No January 19, 022 2:41pm Chief Complaint and Reason for Visit [...] radiculopat hy at C8 (M54.12) Referral Organization [facility] Referring Provider First Name Antwon Referring Provider Last Name Breanna Referring Provider Specialty Neurologica l Surgery Referred Organization [facility] Referred Provider Damián Estrada Referred Address [address] [place], [place],[address] Referred Provider Specialty Pain Medicin e Referral Priority Routine Reason EMG/NCV RUE Diagnosis 1 Ulnar neuropathy of right upper extremity (G56.21) Referral Organization [facility] Referring Provider First Name Antwon Referring Provider Last Name Breanna Referring Provider Specialty Neurologica l Surgery Referred Organization [facility] Referred Provider Davis Cardoso Referred Address [address] [place], [place],[address] Referred Provider Specialty Neurology Referral Priority Routine Additional Source Comments (unrecognized sect ion and content) No Status Records FoundNo Status Records FoundNo Status Records FoundNo Status Records FoundNo Status Records FoundNo Status Records Found INFORMATION SOURCE (unrecogn ized section and content) DATE CREATED AUTHOR 02/03/2019 [facility] DATE CREATED AUTHOR AUTHOR'S ORGANIZ ATION 02/08/2023 [facility] DATE CREATED AUTHOR AUTHOR'S ORGANIZ ATION 02/21/2023 [facility] DATE CREATED AUTHOR AUTHOR'S ORGANIZ ATION 04/11/2024 [facility] DATE CREATED AUTHOR AUTHOR'S ORGANIZ ATION 05/22/2024 [facility] DATE CREATED AUTHOR AUTHOR'S ORGANIZ ATION 05/28/[address] [facility] Care Teams (unrecognized sec tion and content) [...] Quintanilla MD Primary Care Provider, Attending Pr ovidmatthew Active Team Status: Inactive Member Role Status Dates Temporary Anesthesiologist Attending Provider Active Yury Quintanilla MD Primary Care Provider, Referring Pr ovider Active Team Status: Active Member Role Status Park Quintanilla MD Primary Care Provider Active Laura Yu [facility]- Emergency Provider Active Antwon Hastings MD Admit Provider, Attending Provider A ctive Team Status: Inactive Member Role Status Dates Yury Quintanilla MD Primary Care Provide r, Attending Provider, Referring Provider Active Team Status: Inactive Member Role Status Park Quintanilla MD Primary Care Provider Active Laura Yu [facility]- Emergency Provider Active Antwon Hastings MD Admit [...] may be documented in an alternate section No data available for this section REASON FOR VISIT (unrecogniz ed section and content) Ref by Dr. Yury Quintanilla for N suki Pain; MRI in PACSpcd C2-5updateRight hand weaknessMED REFILL2.5 months po PCD w/xray5 1/2 mo po PCD w/xrayfailed PT document and order MRIMRI resultspain medsNo InformationNo Information2 wk po/ pcd with fusion C6- 7, C7-T1/-No InformationRX REFILLmed refill6 wk po/ pcd with [...] BE BASED ON THE PRIMARY CLINICAL RECORDS. [employer] provides no warranty or guarantee of the accuracy or completeness of information in this document.
[2024-06-06 10:15] LABS: Basophils Absolute Auto 0.1 10^3/uL (0.0-0.1); Basophils Percent Auto 0.5 % (0.2-2.0); Eosinophils Absolute Auto 0.6 10^3/uL (0.0-0.7); Eosinophils Percent Auto 5.3 % (0.9-7.0); Hematocrit 38.4 % (42.0-54.0); Hemoglobin 12.7 g/dL (14.0-18.0); Immature Granulocytes Abs Auto 0.05 10^3/uL (0.00-0.03); Immature Granulocytes Pct Auto 0.4 % (0.0-0.5); Lymphocytes Absolute Auto 2.4 10^3/uL (1.2-3.8); Lymphocytes Percent Auto 20.7 % (20.5-60.0); Mean Corpuscular HGB Conc 33.1 g/dL (29.9-35.2); Mean Corpuscular Hemoglobin 32.1 pg (25.9-34.0); Mean Platelet Volume 8.9 fL (9.5-13.5); Monocytes Absolute Auto 1.1 10^3/uL (0.3-0.8); Monocytes Percent Auto 9.2 % (1.7-12.0); Neutrophils Absolute Auto 7.5 10^3/uL (1.4-6.5); Neutrophils Percent Auto 63.9 % (43.0-75.0); Platelet Count 313 10^3/uL (150-450); Red Blood Count 3.96 10^6/uL (4.70-6.10); White Blood Count 11.8 10^3/uL (4.0-11.0)
[2024-06-06 11:45] LABS: Alanine Aminotransferase 15 U/L (16-63); Albumin Level 3.2 g/dL (3.4-5.0); Alkaline Phosphatase 95 U/L (46-116); Anion Gap 12.5; Aspartate Amino Transferase 12 U/L (15-37); Bilirubin Total 0.3 mg/dL (0.2-1.0); Calcium 8.9 mg/dL (8.5-10.1); Chloride 105 mmol/L (98-107); Chol HDL Ratio 2.8; Cholesterol 139 mg/dL (<=200); Estimated GFR (African America >60 (>=60); Estimated GFR (Non-African Ame >60 (>=60); Globulin 3.2 g/dL; Glucose 116 mg/dL (74-106); HDL Cholesterol 49 mg/dL (40-60); LDL Cholesterol Calculated 62.4 mg/dL; Potassium 4.5 mmol/L (3.5-5.1); Sodium 139 mmol/L (136-145); Total Protein 6.4 g/dL (6.4-8.2); Triglycerides 138 mg/dL (<=150); VLDL CHOLESTEROL 27.6 mg/dL
== END 2024-06-06 09:55 | disposition home or self-care (01) ==
LOC: LAB 09:55
PROVIDERS: PCP Family Medicine; Visit Provider Internal Medicine Interventional Cardiology
DX: E78.2 Mixed hyperlipidemia (principal); I10 Essential (primary) hypertension; I25.10 Atherosclerotic heart disease of native coronary artery without angina pectoris
CPT/HCPCS: 36415; 80053; 80061; 85025

== ENCOUNTER 2025-01-04 10:36 | Emergency (ER) | payer MEDICARE, SELFPAY ==
[2025-01-04] VITALS (14 sets, daily range): BP systolic 99–130; BP diastolic 63–79; PULSE 89–107; TEMP 37.6–37.8; O2SAT 9–97; BMI 22.2
--- NOTE | 2025-01-04 10:47 | ECG_ITS ---
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 Measurements Intervals [place] Rate: 104 P: 60 FL: 148 QRS: 80 QRSD: 84 T: 70 QT: 326 QTc: 386 Interpretive Statements 1120 Sinus tachycardia Otherwise normal ECG Compared to ECG 11/13/2022 18:25:47 No significant changes Electronically Signed On 01-04-2025 15:59:02 EDT by THEODORA BANKS M.D.
--- NOTE | 2025-01-04 10:48 | ED_ITS ---
HPI HPI - General Adult General Chief complaint: Chest Pain Stated complaint: SOB CHEST PAIN Time Seen by Provider: 01/04/25 10:40 Source: patient and family Mode of arrival: Wheelchair Limitations: no limitations History of Present Illness HPI narrative: 64-year-old male presents for symptoms that started last night which consisted of coughing and bodyaches. He states he was doing some dry heaving. No fever or hemoptysis. Related Data Previous Rx's ?Medication ?Instructions ?Recorded ondansetron 4 mg disintegrating 4 mg PO Q6H PRN nausea and 01/04/25 tablet vomiting #20 tabs Allergies Allergy/AdvReac Type Severity Reaction Status Date / Time Penicillins Allergy Unknown Unknown Verified 01/04/25 10:42 Sulfa (Sulfonamide AdvReac Intermediate Rash Verified 01/04/25 10:42 Antibiotics) Opioid HPI Opioid Management Most Recent Opioid Data: No Data to Display Review of Systems ROS Narrative A ten point review of systems is negative except as noted above. PFSH PFSH Social History Little interest or pleasure in doing things: not at all Feeling down, depressed, or hopeless: not at all Exam Narrative Exam Narrative: Nurses note and vital signs reviewed and patient is not hypoxic. General: The patient appears well and in no apparent distress. Patient is resting comfortably on cart. Skin: Warm, dry, no pallor noted. There is no rash noted. Head: Normocephalic, atraumatic Eye: Normal conjunctiva, no drainage Ears, Nose, Mouth, and Throat: oral mucosa is moist. Nares patent. Cardiovascular: Regular Rate and Rhythm, mildly tachycardic Respiratory: Patient is in no distress, no accessory muscle use, lungs are clear to auscultation, no wheezing, rales or rhonchi Back: non-tender GI: Soft and nontender Musculoskeletal: The patient has no evidence of calf tenderness, no pitting edema, symmetrical pulses noted bilaterally Neurological: A&O, normal speech Psychiatric: Cooperative Constitutional Vital Signs, click to edit/add: Last Vital Signs Temp 99.7 F 01/04/25 10:42 Pulse 91 H 01/04/25 12:15 Resp 27 H 01/04/25 12:15 BP 118/72 01/04/25 12:15 Pulse Ox 97 01/04/25 12:15 O2 Del Method Room Air, Nasal Cannula 01/04/25 11:00 O2 Flow Rate 2 01/04/25 11:00 Course Vital Signs Vital signs: Vital Signs Temperature 99.7 F 01/04/25 10:42 Pulse Rate 107 H 01/04/25 10:42 Respiratory Rate 22 H 01/04/25 10:42 Blood Pressure 112/79 01/04/25 10:42 Pulse Oximetry 92 L 01/04/25 10:42 Oxygen Delivery Method Room Air 01/04/25 10:42 Temperature 99.7 F 01/04/25 10:42 Pulse Rate 91 H 01/04/25 12:15 Respiratory Rate 27 H 01/04/25 12:15 Blood Pressure 118/72 01/04/25 12:15 Pulse Oximetry 97 01/04/25 12:15 Oxygen Delivery Method Room Air, Nasal Cannula 01/04/25 11:00 Oxygen Delivery Flow Rate 2 01/04/25 11:00 Medical Decision Making MDM Narrative Medical decision making narrative: His workup is negative including COVID and influenza and chest x-ray. He seems to be feeling improved after IV fluids and is discharged home on Zofran. My clinical impression is that he has a viral illness. Treatment diagnosis and follow-up were discussed with the patient. Differential Diagnosis Differential Diagnosis: COVID, influenza, pneumonia, viral illness, dehydration Lab Data Lab results reviewed: Yes I reviewed the patient's lab results Labs: Lab Results 01/04/25 Range/Units 10:50 WBC 6.3 (4.0-11.0) 10^3/uL RBC 4.04 L (4.70-6.10) 10^6/uL Hgb 13.4 L (14.0-18.0) g/dL Hct 38.3 L (42.0-54.0) % MCV 94.8 H (80.0-94.0) fL MCH 33.2 (25.9-34.0) pg MCHC 35.0 (29.9-35.2) g/dL RDW 13.9 (11.0-15.0) % Plt Count 219 (150-450) 10^3/uL MPV 9.3 L (9.5-13.5) fL Seg Neuts % (Manual) 76.0 H (43.0-75.0) Lymphocytes % (Manual) 8.0 L (20.5-60.0) % Monocytes % (Manual) 14.0 H (1.7-12.0) % Eosinophils % (Manual) 1.0 (0.9-7.0) % Basophils % (Manual) 1.0 (0.2-2.0) % Neutrophils # (Manual) 4.78 (1.4-6.5) 10^3/uL Lymphocytes # (Manual) 0.50 L (1.20-3.80) 10^3/uL Monocytes # (Manual) 0.88 H (0.30-0.80) 10^3/uL Eosinophils # (Manual) 0.06 (0.00-0.70) 10^3/uL Basophils # (Manual) 0.06 (0.00-0.10) 10^3/uL Anisocytosis 1+ Ovalocytes 1+ Sodium 136 (136-145) mmol/L Potassium 4.3 (3.5-5.1) mmol/L Chloride 103 (98-107) mmol/L Carbon Dioxide 25.5 (21.0-32.0) mmol/L Anion Gap 11.8 BUN 9.0 (7.0-18.0) mg/dL Creatinine 1.22 (0.70-1.30) mg/dL Est GFR ( Amer) >60 (>=60 mL/min/1.73m^2) Est GFR (Non-Af Amer) >60 (>=60 mL/min/1.73m^2) BUN/Creatinine Ratio 7.4 Glucose 125 H (74-106) mg/dL Calcium 8.9 (8.5-10.1) mg/dL Troponin I High Sens <4.0 L (4.0-76.1) pg/mL Influenza Type A Ag Negative Influenza Type B Ag Negative SARS-CoV-2 Ag (CV2AG) Negative (NEGATIVE) Imaging Data Chest x-ray: Radiologist's impression: Normal heart size, no lobar consolidation or edema, no pleural effusion or pneumothorax ECG Data Attestation: I personally reviewed and interpreted this ECG as follows: (EKG on my interpretation shows sinus rhythm with rate of 104 no acute change) Discharge Plan Discharge Chief Complaint: Chest Pain Clinical Impression: Viral illness Patient Disposition: Home, Self-Care Time of Disposition Decision: 12:37 Condition: Good Mode of Transportation: Private Vehicle Prescriptions / Home Meds: New ondansetron 4 mg tablet,disintegrating 4 mg PO Q6H PRN (Reason: nausea and vomiting) Qty: 20 0RF Print Language: Sammarinese Instructions: Viral Syndrome (ED) Referrals: Yury Quintanilla MD [Primary Care Provider] - 1 week
[2025-01-04] MEDS: ONDANSETRON PF 4 MG/2 ML VIAL IV (11:05)
--- OUTSIDE RECORDS SUMMARY | 2025-01-04 11:06 | XMS_ITS | CCD ---
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- Laura Del Castillo Emergency Provider MD Antwon Hastings Admit Provider MD Antwon Hastings Attending Provider Antwon Hastings Unavailable Lele Fong Unavailable MD Yury Lara Primary Care Provider [phone] MD Yury Lara Primary Care Provider [phone] MD Antwon Hastings Attending Provider [phone] MD Yury Lara Primary Care Provider [phone] MD Antwon Hastings Attending Provider [phone] Dr. Rigo Hughes Attending Unava ilable DR ANTWON HASTINGS Admitting Unavailable VENKATA, DR KAPOOR Attending Unavailable BRANDONY ., DR HADDAD Primary Care Unavailable THAIS, DR SAMANTA Millan Consulting Unavailable VENKATA, DR KAPOOR Consulting Unavailable BRANDONY ., DR HADDAD Admitting [...] Unavailable HOY ., DR HADDAD Consulting Unavailable MALTA, DR SAMANTA Millan Consulting Unavailable HOY ., [...] Unavailable MOIZ BROWNING Consulting Unavailable SAMANTA JENNINGS Consulting Unavailable MD Yury Lara Primary Care Provider [phone] MD Antwon Hastings Attending Provider [phone] MD Antwon Hastings Admit Provider MD Yury Lara Primary Care Provider [phone] MD Antwon Hastings Attending Provider Yury Lara Primary Care Physician MD Yury Lara Primary Care Provider [phone] MD Antwon Hastings Attending Provider [phone] Yury Lara Primary Care Unavailable Antwon Hastings Attending Unavailable Antwon Hastings Admitting Unavailable Antwon Hastings Admitting Unavailable Yury Lara Primary Care Unavailable Antwon Hastings Attending Unavailable Yury Lara Primary Care Unavailable Antwon Hastings Attending Unavailable Antwon Hastings Admitting Unavailable THEODORA EDWARDS Attending Unavailable KENNEDI MICHELLE Attending Unavailable Yury Lara MD Primary Care Provider [phone] DEVIKA CHAMPAGNE Attending Unavailable RAYNE BERRY Attending Unavailable JUANJOSE BAR Referring Unavailable DO Damián Estrada Admitting UnavailDamián Chen Attending Unavailable Homarisel, Yury Referring Unavailable Hernandes, Luz Admitting Unavailable Hernandes, Luz Attending Unavailable Hoy, Yury Referring Unavailable Damián Estrada Admitting Unavailable NONE, XXXX Referring Unavailable Damián Estrada Attending Unavailable Hernandes, Luz Admitting Unavailable Hernandes, Luz Attending Unavailable Hoy, Yury Referring Unavailable Hernandes, Luz Admitting Unavailable Hernandes, Luz Attending Unavailable Hoy, Yury Referring Unavailable Damián Estrada Attending Unavailable Damián Estrada Referring Unavailable Damián Estrada Admitting Unavailable Damián Estrada Admitting Unavailable Damián Estrada Attending Unavailable Damián Estrada Referring Unavailable DO Damián Estrada Admitting Unavailabl e Damián Estrada Attending Unavailable Damián Estrada Referring Unavailable Henrique DIOP Attending Unavailable Yury Lara Referring Unavailable Allergies Allergy Classification Reported Allergen(s) Allergy Type Date of Onset Reaction(s) Facility penicillAMINE (1 source) penicillAMINE Drug Allergy 04-10-20 24 [facility] Repository Penicillins (antibiotic) (1 source) Penicillins Drug Allergy 02-13-20 23 [facility] Repository Sulfonamides (antibiotic) (2 sources) Sulfonamides (Antibiotic); Translations: [sulfacetamide] Drug Allergy 02-13-20 23 [facility] Repository Sulfur (1 source) Sulfur Drug Allergy 04-10-20 24 [facility] Repository (3 sources) Ibuprofen; Translations: [IBUPROFEN] Drug Allergy 09-26-20 16 [facility] Repository (15 sources) Penicillins; Translations: [PENICILLINS] Drug allergy (disorder) 09-08-20 09 [facility] Repository (15 sources) Sulfonamides (Antibiotic); Translations: [SULFA (SULFONAMIDE ANTIBIOTICS)] Drug allergy (disorder) 03-18-20 13 [facility] Repository (20 sources) penicillAMINE Drug Allergy 04-10-20 24 Unknown, Unknown Reaction [facility] (20 sources) Sulfacetamide / Sulfur Drug Allergy Unknown [facility] Other (13 sources) Penicillin; Translations: [penicillin] Drug Allergy Eruption of skin (disorder) [facility] [place] (13 sources) Sulfonamides (Antibiotic); Translations: [sulfa drugs] Drug allergy Eruption of skin (disorder) [facility] [place] (2 sources) Sulfacetamide Drug Allergy 04-10-20 Unknown Reaction [facility] (2 sources) Sulfur Drug Allergy 04-10-20 Unknown Reaction [facility] (1 source) Penicillins Propensity to adverse reactions 11-12-19 [facility] (1 source) Sulfonamides (Antibiotic) Propensity to adverse reactions 11-12-19 [facility] (1 source) No Known Medication Allergies; Translations: [No Known Medication Allergies] Propensity to adverse reactions (disorder) [facility] Repository Medications Current Medications Medication Drug Class(es) [...] 28, 2022 12:00am March 02, 2022 1:26pm oxyCODONE-acetam inophen (Percocet) 5-325 MG tablet Active amLODIPine 2.5 mg / atorvastatin 40 mg oral tablet (1 source) Dihydropyridine Calcium Channel Nicolasa, HMG-CoA Reductase Inhibitor take 1 tablet by mouth once daily amLODIPine-atorvastatin (Caduet) 2.5-40 MG tablet Take 1 tablet by mouth Daily Active aspirin 81 mg oral tablet (20 sources) Platelet Aggregation Inhibitor, Nonsteroidal Anti-inflammatory Drug Start: 2018 take 1 tablet by mouth once daily aspirin 81 mg oral tablet 81 mg = 1 tab(s), Oral, Daily Start Date: 09/10/19 Status: Ordered take 1 tablet by mouth once sri y aspirin 81 MG EC tablet Take 81 mg by mouth Daily Active atorvastatin 40 mg oral tablet (20 sources) HMG-CoA Reductase Inhibitor Start: 06-26-2024 take 1 tablet by mouth once daily atorvastatin 40 mg Tab 40 mg = 1 tab(s), Oral, Daily, Refills(s) 0 Start Date: 06/26/24 Status: Ordered Start: 02-07-2022 take 40 mg by mouth once daily at bedtime Atorvastatin Active 40 MG PO Daily at bedtime February 07, 2022 12:00am baclofen 20 mg oral tablet (20 sources) gamma-Aminobutyric Acid-ergic Agonist Start: 10-18-2023 take 1 tablet [...] mg oral tablet (20 sources) l-Thyroxine Start: 06-26-2024 take 1 tablet by mouth once daily levothyroxine 75 mcg (0.075 mg) Tab 75 mcg = 1 tab(s), Oral, Daily, Refills(s) 0 Start Date: 06/26/24 Status: Ordered Start: 02-07-2022 take 75 ug by mouth [...] tablet by jacquie th every twenty-four hours metoprolol succinate XL (Toprol-XL) 25 M G 24 hr tablet Take by mouth Do not crush or chew. Active take 1 capsule by mouth once can ly Metoprolol Succinate 25 MG 1 capsule Orally Once a day Active oxaprozin 600 mg oral tablet (20 sources) Nonsteroidal Anti-inflammatory Drug Start: 10-18-2023 take 2 tablets by mouth once daily oxaprozin 600 mg Tab 1,200 mg = 2 tab(s), Oral, Daily, Refills(s) 0 Start Date: 10/18/23 Status: Ordered oxyCODONE hydrochloride 5 mg oral capsule (20 sources) Opioid Agonist Start: 06-26-2024 take 1 capsule by mouth twice daily oxyCODONE 5 mg Cap 5 mg = 1 cap(s), Oral, BID, Refills(s) 0 Start Date: 06/26/24 Status: Ordered Start: 04-24-2023 take 1 tablet by jacquie th every [...] Start: 09-10-2019 take 1 capsule by mo uth twice daily Dilantin 100 mg Cap-ER 100 mg = 1 cap(s), Oral, BID Start Date: 09/10/19 Status: Ordered Start: 09-10-2019 take 3 capsules by m outh twice daily Dilantin 100 mg Cap-ER 300 mg = 3 cap(s), Oral, BID Start Date: 09/10/19 Status: Ordered Phenytoin Sodium Active Oivtukbpqop-Wzifyamb-Iehhmfs ac 1-0.5-0.075 % solution (2 sources) Start: 11-12-2024 Rzjywqetijr-Bhhtpdbo-Sjuiyhn ac 1-0.5-0.075 % solution Indications: Age-related nuclear cataract of both eyes Administer 1 drop into affected eye(s) in the morning and 1 drop at noon and 1 drop in the evening and 1 drop before bedtime. 10 mL 1 11/12/2024 Active Prednisone (13 sources) Start: 02-14-2023 Prednisone Active 1 dose pk PO per package directions [...] then take 1 tab for 3 days pregabalin 200 mg oral capsule (8 sources) Start: 08-26-2024 End: 11-24-2024 take 1 capsule by mouth twice daily Lyrica 200 mg Cap 200 mg = 1 cap(s), Oral, BID, X 30 day(s), # 60 cap(s), Refills(s) 2, Pharmacy: [facility]/pharmacy #[id number], 172.7, cm, 08/05/24 8:27:00 EDT, Height/Length Dosing, 65.9, kg, 08/05/24 8:27:00 EDT, Weight Dosing Start Date: 08/26/24 Stop Date: 11/24/24 Status: Ordered Start: 08-05-2024 End: 08-25-2024 take 1 capsule by mouth twice daily pregabalin 50 mg Cap 50 mg = 1 cap(s), Oral, BID, X 20 day(s), # 40 cap(s), Refills(s) 0, Pharmacy: [facility]/pharmacy #[id number], 172.7, cm, 08/05/24 8:27:00 EDT, Height/Length Dosing, 65.9, kg, 08/05/24 8:27:00 EDT, Weight Dosing Start Date: 08/05/24 Stop Date: 08/25/24 Status: Ordered Start: 06-25-2024 take 1 capsule by mo uth twice daily pregabalin 150 mg Cap 150 mg = 1 cap(s), Oral, BID, # 60 cap(s), Refills(s) 1, Pharmacy: [facility]/pharmacy #[id number], 178, cm, 06/25/24 8:51:00 EDT, Height/Length Dosing, 65.8, kg, 06/25/24 8:51:00 EDT, Weight Dosing Start Date: 06/25/24 Status: Ordered simvastatin 40 mg oral tablet (9 sources) HMG-CoA Reductase Inhibitor Start: 09-10-2019 take [...] (at bedtime) Start Date: 09/10/19 Status: Ordered Start: 09-10-2019 traZODONE 100 mg Tab 150 mg = 1.5 tab(s), Oral, Once a day (at bedtime) Start Date: 09/10/19 Status: Ordered take 1 tablet by jacquie th every twenty-four hours traZODone HCl 150 MG 1 tablet at bedtime Orally Once a day Active Vitamin D (1 source) Start: 06-25-2024 Vitamin D Oral , Daily, Refills(s) 0 Start Date: 06/25/24 Status: Ordered Vitamin D3 (2 sources) Start: 08-05-2024 Vitamin D3 Ora l, Daily, Refills(s) 0 Start Date: 08/05/24 Status: Ordered Completed/Discontinued Medications Medication Drug Class(es) Dates Sig [...] Problem Classification Problem Date Documented Date Episodic/Chronic Acute cerebrovascular disease (3 sources) Cerebrovascular accident 06-26-2024 Chronic Acute myocardial infarction (3 sources) Myocardial infarction 06-26-2024 Chronic Anxiety disorders (1 source) Anxiety disorder, unspecified; Translations: [ANXIETY DISORDER UNSPECIFIED] Onset: 02-20-2023 Chronic Aortic; peripheral; and visceral artery aneurysms (3 sources) Aneurysm of ascending aorta Onset: 05-19-2024 06-26-2024 Chronic Cardiac dysrhythmias (3 sources) Tachycardia, unspecified; Translations: [Palpitations] Onset: 04-19-2022 Episodic Cataract (2 sources) Bilateral age-related nuclear cataracts; Translations: [Age-related nuclear cataract, bilateral] Onset: 11-12-2024 11-12-2024 Chronic Chronic obstructive pulmonary disease and bronchiectasis (1 source) Chronic obstructive pulmonary disease, unspecified; Translations: [COPD UNSPECIFIED] Onset: 02-20-2023 Chronic Coronary atherosclerosis and other heart disease (2 sources) Atherosclerotic heart disease of [place] coronary artery without angina pectoris; Translations: [Atherosclerotic heart disease of [place] coronary artery without angina pectoris] Onset: 05-19-2024 Chronic Diseases of white blood cells (1 source) Elevated white blood cell count, unspecified; Translations: [ELEVATED WHITE BLOOD CELL COUNT UNS] Onset: 04-19-2022 Chronic Disorders of lipid metabolism (7 sources) Hyperlipidemia, unspecified; Translations: [Mixed hyperlipidemia] Onset: 01-21-2019 Chronic Diverticulosis and diverticulitis (3 sources) Diverticula of intestine 06-26-2024 Chronic Essential hypertension (7 sources) Essential (primary) hypertension; Translations: [Essential hypertension] Onset: 01-21-2019 Chronic Malaise and fatigue (1 [...] Resolved: 02-23-2022 Episodic Other aftercare (2 sources) 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; Translations: [GROUP HOME (CURRENT) USE OF ASPIRIN] Onset: 01-21-2019 Episodic Other aftercare (1 source) [facility] (current) use of anticoagulants; Translations: [GROUP HOME CURRNT USE ANTICOAGULANTS] Onset: 02-20-2023 Episodic Other aftercare (1 source) Other [facility] (current) drug therapy; Translations: [OTH GROUP HOME CURRENT DRUG THERAPY] Onset: 02-20-2023 Episodic Other [...] [OTHER ACUTE POSTPROCEDURAL PAIN] Onset: 02-20-2023 Episodic Other skin disorders (1 source) Senile hyperkeratosis; Translations: [Other seborrheic keratosis] Onset: 07-15-2024 Episodic Paralysis (3 sources) Hemiplegia of right nondominant side 06-26-2024 Chronic Pulmonary heart disease (5 sources) Personal history of pulmonary embolism; Translations: [Other pulmonary embolism without acute cor pulmonale] Onset: 04-19-2022 06-26-2024 Episodic Spondylosis; intervertebral disc disorders; other back problems (20 sources) Intervertebral disc disorder of cervical region with myelopathy; Translations: [Cervical disc disorder with myelopathy, unspecified cervical region] Onset: 02-23-2022 Resolved: 05-11-2022 02-28-2022 Chronic Unclassified (1 source) R07.89 OTHER CHEST PAIN Onset: 01-21-2019 Unclassified (1 source) R0789 OTHER CHEST PAIN Onset: 01-21-2019 Unclassified (1 source) CONTACT W/AND (SUSP) EXPOS COVID-19; Translations: [CONTACT W/AND (SUSP) EXPOS COVID-19] Onset: 04-19-2022 Unclassified (12 sources) Patient encounter status 09-10-2019 Unclassified (1 source) Spondylolisthesis, cervical region; Translations: [Spondylolisthesis, cervical region] Onset: 05-22-2023 Unclassified (1 source) Aneurysm of the ascending aorta, without rupture; Translations: [Aneurysm of the ascending aorta, without rupture] Onset: 05-19-2024 Unclassified (3 sources) Seborrheic keratosis 07-15-2024 Past or Other Problems Problem Classification Problem [...] HISTORY OF NICOTINE DEPENDENCE] Onset: 01-21-2019 Episodic Spondylosis; intervertebral disc disorders; other back problems (20 sources) Cervical radiculopathy; Translations: [Radiculopathy, cervical region] Onset: 02-17-2023 Episodic Unclassified (1 source) Aneurysm of the ascending aorta, without rupture; Translations: [Aneurysm of the ascending aorta, without rupture] Onset: 05-19-2024 Results Test Name Value Interpretation Reference Range Facility US Eye+Orbit - bilateralon 0 11-12-2024 Diagnosis: Cataract both eyes (OU) Testing Indication: Performed for preop measurements in the determination of an intraocular lens (IOL) for both eyes (OU) Test Reliability: Good quality both eyes (OU) Interpretation: Good measurements for intraocular lens (IOL) calculation purposes. Calculation made for both eyes (OU). [facility] Radiology Study observation (narrative) [facility] EMG 1 Extremeityon 4 C8 radiculopathy on the right, severe, worse C5 radiculopathy on the right, moderate, unchanged [facility] NVC 5-6 Nerveson 09-02-2024 C8 radiculopathy on the right, severe, worse C5 radiculopathy on the right, moderate, unchanged [facility] Ambulatory Visit Summaryon 0 07-15-2024 Ambulatory Visit Summary Ambulatory Visit Summary MARY ABURTO Bandar :1960 Visit Date:07/15/2024 Ambulatory Visit Instructions Your Care Team Attending Physician - Henrique DIOP MD Primary Care Physician - Yury Lara MD Referring Physician - Yury Lara MD This Is Your Medications List Contact [...] you for choosing us for your care. Normal [facility] Main OR Intraoperative Recor don 06-09-2024 Main OR Intraoperative Record Main OR Intraoperative Record IntraOp Document Type FTPM Summary Primary Physician: Damián Estrada DO Finalized Date/Time: 06/09/24 09:06:20 Pt. Name: MARY ABURTO/Sex: 1960 Male Med Rec #: [id number] Physician: Damián Estrada DO Financial #: [id number] Pt. Type: P Room/Bed: / Admit/Disch: 06/09/24 [...] Boo RN Role Performed Surgeon - Primary Environmental Field Services Technician - Primary Scrub - Primary Time In 06/09/24 08:54:00 06/09/24 08:54:00 06/09/24 08:54:00 Time Out 06/09/24 09:06:00 06/09/24 09:06:00 06/09/24 09:06:00 Procedure THORACIC EPIDURAL THORACIC EPIDURAL THORACIC EPIDURAL STEROID INJECTION(.) STEROID INJECTION(.) STEROID INJECTION(.) Comments Last Modified By: Vikram POLK, Pricilla Sue RN, Pricilla Justin RN 06/09/24 09:05:59 06/09/24 09:05:59 06/09/24 09:05:59 Entry 4 Case Attendee Lele Evans Role Performed Ms Sql Dba Time In 06/09/24 08:54:00 Time Out 06/09/24 09:06:00 Procedure THORACIC EPIDURAL STEROID INJECTION(.) Comments Last Modified By: Pricilla Sue RN/12/24 09:05:59 Perioperative Protocols FTPM Pre-Care Text: Implements [...] RN, Sean Bridges DO, Bradford A., Jus RTLele Time Out Complete 06/09/24 08:54:00 Outcomes Met? [...] and tissue Entry 1 Skin Integrity Intact, [place], Warm, & Skin Abnormality No Dry Outcomes [...] Under Knees Press Points Checked Yes By Toshia (more content not included)... Normal [facility] Main OR Preoperative Recordo n 06-09-2024 Main OR Preoperative Record Main OR Preoperative Record Holding Area Document Type FTPM Summary Primary Physician: Damián Estrada DO Finalized Date/Time: 06/09/24 07:46:35 Pt. Name: MARY ABURTO/Sex: 1960 Male Med Rec #: [id number] Physician: Damián Estrada DO Financial #: [id number] Pt. Type: P Room/Bed: / Admit/Disch: 06/09/24 [...] Signed By: Jessa Moya RN 06/09/24 07:46 Normal [facility] Main OR Preoperative Recordo n 05-26-2024 Main OR Preoperative Record Main OR Preoperative Record Holding Area Document Type FTPM Summary Primary Physician: Damián Estrada DO Finalized Date/Time: 05/26/24 08:13:25 Pt. Name: MARY ABURTO D.O.B./Sex: 1960 Male Med Rec #: [id number] Physician: Damián Estrada DO Financial #: [id number] Pt. Type: P Room/Bed: / Admit/Disch: 05/26/24 [...] 07:45 Jessa Moya RN 05/26/24 08:13 Normal [facility] Office Visiton 05-19-2024 Follow-up visit [id number] Mary Aburto Bandar 1960 M Date Provider Department Center 05/19/2024 THEODORA LYNCH FADY [facility] Family History Problem Relation Age of Onset Diabetes Mother Lung cancer Father Lung cancer Sister Family Status - Relation Status Age at Mother Father Sister Level of Service:86149 MS OFFICE/OUTPATIENT ESTABLISHED MOD MDM 30 MIN Normal [facility] Patient Correspondenceon Patient Correspondence [id number]#1.00TIFF Normal [facility] XR cerv spine AP/LAT/FLX/EXT on 04-10-2024 XR cerv spine AP/LAT/FLX/EXT [facility] [place] [address] XRay Report Signed Patient: Mary Aburto MR#: [id number] : 1960 Acct:[id number] Age/Sex: 64 / M ADM Date: 04/10/24 Loc: XD Room: Type: [facility] Attending Dr: Antwon Hastings MD Copies to: [...] Nguyễn Patel M.D.04/10/2024 9:13 AM Dictation Location: [place] [address] Transcribed By: [facility] 04/10/24 0913 Dictated By: Nguyễn Patel DO 04/10/24 0911 Signed By: 04/10/24 0913 Normal [facility] Office/Clinic Note-Physician on 04-03-2024 Office/Clinic Note-Physician [id number]#1.00TIFF [facility] Office/Clinic Note-Nurseon 0 04-01-2024 Office/Clinic Note-Nurse [id number]#1.00TIFF [facility] Consent for Treatmenton Consent for Treatment [id number]#1.00TIFF [facility] Consultation Noteon 02-28-20 Consultation Note Patient [...] with any questions or concerns that arise. [facility] Comment on above: Result Comment: Elec tronically Signed By: Damián Estrada DO\Date and Time Signed: 02/28/24 16:01 EDT Office/Clinic Note-Physician on 02-28-2024 Office/Clinic Note-Physician [id number]#1.00TIFF [facility] Patient Correspondenceon Patient Correspondence [id number]#1.00TIFF [facility] Patient Correspondence [id number]#1.00TIFF [facility] Patient History Officeon Patient History Office [id number]#1.00TIFF [facility] Consent for Treatmenton Consent for Treatment [id number]#1.00TIFF [facility] Consent for Procedure/Surger yon 01-23-2024 Consent for Procedure/Surgery [id number]#1.00TIFF [facility] Consent for Treatmenton - Consent for Treatment [id number]#1.00TIFF [facility] Discharge Instructionson Discharge Instructions [id number]#1.00TIFF [facility] IntraOperative Documentson 0 01-23-2024 IntraOperative Documents [id number]#1.00TIFF Normal [facility] IntraOperative Documents [id number]#1.00TIFF Normal [facility] IntraOperative Documents [id number]#1.00TIFF Normal [facility] Main OR Intraoperative Recor don 01-23-2024 Main OR Intraoperative Record IntraOp Document Type FTPM Summary Primary Physician: Damián Estrada DO Finalized Date/Time: 01/23/24 15:08:46 Pt. Name: MARY ABURTO/Sex: 1960 Male Med Rec #: [id number] Physician: Damián Estrada DO Financial #: [id number] Pt. Type: P Room/Bed: / Admit/Disch: 01/23/24 14:25:44 - Institution: Case Times FTPM Entry 1 Patient Times In Room 01/23/24 14:54:00 Out Room 01/23/24 15:09:00 Procedure Times Start 01/23/24 14:57:00 Stop 01/23/24 15:08:00 Anesthesia Times Last Modified By: Sixto POLK, Ernestine River 01/23/24 15:08:42 Case Attendance FTPM Entry 1 Entry 2 Entry 3 Case Attendee Damián Estrada DO, RN, Ernestine Sue RN, [facility] Role Performed Surgeon - Primary Environmental Field Services Technician - Primary Scrub - Primary Time In 01/23/24 14:54:00 01/23/24 14:54:00 01/23/24 14:54:00 Time Out 01/23/24 15:09:00 01/23/24 15:09:00 01/23/24 15:09:00 Procedure INTERLAMINAR EPIDURAL INTERLAMINAR EPIDURAL INTERLAMINAR EPIDURAL STEROID INJECTION(.) STEROID INJECTION(.) STEROID INJECTION(.) Comments Last Modified By: Sixto POLK, Ernestine Henson RN, Ernestine Henson RN, Ernestine River 01/23/24 15:08:43 01/23/24 15:08:43 01/23/24 15:08:43 Entry 4 Case Attendee Berkley BUNDY)Jordana Role Performed Ms Sql Dba Time In 01/23/24 14:54:00 Time Out 01/23/24 [...] No Time Out Ernestine Henson RN, Given Participants Vikram POLK, Sean Jefferson DO, Bradford A., Christman RT(R)Jordana [...] and tissue Entry 1 Skin Integrity Intact, [place], Warm, and Skin Abnormality No Dry Outcomes [...] By R (more content not included)... Normal [facility] Main OR Preoperative Recordo n 01-23-2024 Main OR Preoperative Record Holding Area Document Type FTPM Summary Primary Physician: Damián Estrada DO Finalized Date/Time: 01/23/24 14:30:44 Pt. Name: MARY ABURTO/Sex: 1960 Male Med Rec #: [id number] Physician: Damián Estrada DO Financial #: [id number] Pt. Type: P Room/Bed: / Admit/Disch: 01/23/24 [...] Signed By: Sayra Maurice RN 01/23/24 14:30 [facility] Patient Correspondenceon Patient Correspondence [id number]#1.00TIFF [facility] Office/Clinic Note-Physician on 12-21-2023 Office/Clinic Note-Physician [id number]#1.00TIF F [facility] Office Visiton 12-20-2023 Follow-up visit [id number] Mary Aburto 1960 M Date Provider Department Center 12/20/2023 166-KENNEDI MICHELLE CARD [facility] Family History Problem Relation Age of Onset Diabetes Mother Lung cancer Father Lung cancer Sister Family Status - Relation Status Age at Mother Father Sister Level of Service:56634 MS OFFICE/OUTPATIENT ESTABLISHED MOD MDM 30 MIN Reason for Visit and Comments: Coronary Artery Disease [187] Hypertension [086258] Hyperlipidemia [182] Normal [facility] Orders Onlyon 12-20-2023 Orders Only [id number] Mary Aburto 1960 M Date Provider Department Center 12/20/2023 BLAISE MEDRANO FADY Leija Family History Problem Relation Age of Onset Diabetes Mother Lung cancer Father Lung cancer Sister Family Status - Relation Status Age at Mother Father Sister Normal [facility] Consent for Treatmenton Consent for Treatment [id number]#1.00TIFF Normal [facility] Consultation Noteon 12-06-19 24 Consultation Note Patient is presentin g with [...] 4/5 strength in his right hand for tube draw helper 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 [facility] Comment on above: Result Comment: Elec tronically Signed By: Damián Estrada DO\.br\Date and Time Signed: 12/06/23 10:46 EST Legal Correspondence Officeo n 12-06-2023 Legal Correspondence Office [id number]#1.00TIFF [facility] Office/Clinic Note-Nurseon 0 12-06-2023 Office/Clinic Note-Nurse [id number]#1.00TIFF [facility] Office/Clinic Note-Physician on 12-06-2023 Office/Clinic Note-Physician [id number]#1.00TIFF [facility] Patient Correspondenceon Patient Correspondence [id number]#1.00TIFF [facility] Patient Correspondence [id number]#1.00TIFF Normal [facility] Patient Correspondence [id number]#1.00TIFF Normal [facility] Patient Correspondence [id number]#1.00TIFF Normal [facility] Patient History Officeon Patient History Office [id number]#1.00TIFF Normal [facility] 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 Radiology Outside Office Copy [id number]#1.00TIFF Normal [facility] Physician Orderon 11-28-2023 Physician Order [id number]#1.00TIF F Normal [facility] Physician Orderon 11-20-2023 Physician Order [id number]#1.00TIFF Normal [facility] XR cerv spine AP/LAT/FLX/EXT on 08-14-2023 XR cerv spine AP/LAT/FLX/[place] [address] XRay Report Signed Patient: Mary Aburto MR#: [id number] : 1960 Acct:[id number] Age/Sex: 63 / M ADM Date: 08/14/23 Loc: XD Room: Type: [facility] Attending Dr: Antwon Hastings MD Copies to: [...] Thomas Justice M.D.08/14/2023 6:49 PM Dictation Location: [place] [address] Transcribed By: [facility] 08/14/231848 Dictated By: Thomas Justice II, MD 08/14/231842 Signed By: 08/14/231848 Normal [facility] XR cerv spine AP/LAT/FLX/EXT on 05-22-2023 XR cerv spine AP/LAT/FLX/EXT [facility] [place] [address] [place] [address] XRay Report Signed Patient: Mary Aburto MR#: [id number] : 1960 Acct:[id number] Age/Sex: 63 / M ADM Date: 05/22/23 Loc: XD Room: Type: [facility] Attending Dr: Antwon Hastings MD Copies to: [...] Dimas Jr., D.O.05/22/2023 3:31 PM Dictation Location: [place] [address] Transcribed By: [facility] 05/22/23 153 Dictated By: Jorge Dimas Jr, DO 05/22/23 153 Signed By: 05/22/23 1531 Normal [facility] Amphetamine Screen Ql (U)Ord ered By: Jaime Trujillo on 02-12-2023 Amphetamines Ql (U) Negative Negative [facility] Barbiturates [Presence] in U rine by Screen methodOrdered By: Jaime Trujillo on 02-12-2023 Barbiturates Screen Ql (U) Negative Negative [facility] Benzodiazepines Screen Ql (U )Ordered By: Jaime Trujillo on 02-12-2023 Benzodiazepines Ql (U) Negative Negative [facility] Benzoylecgonine [Presence] i n Urine by Screen methodOrdered By: Jaime Trujillo on 02-12-2023 Benzoylecgonine Screen Ql (U) Negative Negative [facility] Cannabinoids [Presence] in U rine by Screen methodOrdered By: Jaime Trujillo on 02-12-2023 Cannabinoids Screen Ql (U) Positive Negative [facility] Comment on above: These are unconfirme d results and should not be used for legal purposes. Drug Cut-Off Concentration: AMPH 1000 ng/mL SAMARIA 200 ng/mL ARJUN 200 ng/mL COCM 300 ng/mL OP 300 ng/mL PCP 25 ng/mL THC 20 ng/mL Opiates [Presence] in Urine by Screen methodOrdered By: Jaime Trujillo on 02-12-2023 Opiates Screen Ql (U) Positive Negative [facility] Phencyclidine Screen Ql (U)O rdered By: Jaime Trujillo on 02-12-2023 Phencyclidine Ql (U) Negative Negative [facility] Basophils Auto (Bld) [#/Vol] Ordered By: Antwon Hastings on 01-29-2023 Basophils (Bld) [#/Vol] 0.1 10*3/uL 0.0-0.2 [facility] Basophils/100 WBC Auto (Bld) Ordered By: Antwon Hastings on 01-29-2023 Basophils/100 WBC (Bld) 0.8 % . [facility] Calcium [Mass/volume] in Ser um or PlasmaOrdered By: Antwon Hastings on 01-29-2023 Calcium [Mass/Vol] 8.9 mg/dL 8.6-10.3 [facility] Carbon dioxide, total [Moles /volume] in Serum or PlasmaOrdered By: Antwon Hastings on 01-29-2023 CO2 [Moles/Vol] 27.7 mmol/L 21.0-31.0 [facility] Chloride [Moles/volume] in S serena or PlasmaOrdered By: Antwon Hastings on 01-29-2023 Chloride [Moles/Vol] 105 mmol/L 98-107 [facility] Creatinine [Mass/volume] in Serum or PlasmaOrdered By: Antwon Hastings on 01-29-2023 Creatinine [Mass/Vol] 0.92 mg/dL 0.70-1.30 [facility] Eosinophils Auto (Bld) [#/Vo l]Ordered By: Antwon Hastings on 01-29-2023 Eosinophils (Bld) [#/Vol] 0.2 10*3/uL 0.0-0.45 [facility] Eosinophils/100 WBC Auto (Bl d)Ordered By: Antwon Hastings on 01-29-2023 Eosinophils/100 WBC (Bld) 2.8 % . [facility] Erythrocyte distribution wid th Auto (RBC) [Ratio]Ordered By: Antwon Hastings on 01-29-2023 Erythrocyte distribution width (RBC) [Ratio] 12.8 % 12.0-14.8 [facility] Glucose [Mass/volume] in Ser um or PlasmaOrdered By: Antwon Hastings on 01-29-2023 Glucose [Mass/Vol] 92 mg/dL 70-100 [facility] Comment on above: ADA recommended refe rence rangeRandom Glucose Reference Range is dependent on time and content of last meal. Glucose of more than 200 mg/dL in a nonstressed, ambulatory subject supports the diagnosis of Diabetes Mellitus. Hematocrit Auto (Bld) [Volum e fraction]Ordered By: Antwon Hastings on 01-29-2023 Hematocrit (Bld) [Volume fraction] 42.1 % 38.8-50.0 [facility] Hemoglobin [Mass/volume] in BloodOrdered By: Antwon Hastings on 01-29-2023 Hemoglobin (Bld) [Mass/Vol] 14.4 g/dL 13.0-17.0 [facility] Leukocytes [#/volume] correc carlos for nucleated erythrocytes in Blood by Automated counOrdered By: Antwon Hastings on 01-29-2023 WBC corrected for nucl RBC Auto (Bld) [#/Vol] 7.4 10*3/uL 4.1-10.5 [facility] Lymphocytes Auto (Bld) [#/Vo l]Ordered By: Antwon Hastings on 01-29-2023 Lymphocytes (Bld) [#/Vol] 2.0 10*3/uL 1.00-4.8 [facility] Lymphocytes/100 WBC Auto (Bl d)Ordered By: Antwon Hastings on 01-29-2023 Lymphocytes/100 WBC (Bld) 27.3 % . [facility] MCH Auto (RBC) [Entitic mass ]Ordered By: Antwon Hastings on 01-29-2023 MCH (RBC) [Entitic mass] 34.0 pg 27.5-35.2 [facility] MCHC Auto (RBC) [Mass/Vol]Or dered By: Antwon Hastings on 01-29-2023 MCHC (RBC) [Mass/Vol] 34.1 g/dL 32.5-35.6 [facility] MCV Auto (RBC) [Entitic vol] Ordered By: Antwon Hastings on 01-29-2023 MCV (RBC) [Entitic vol] 99.8 fL 83.5-101 [facility] Monocytes Auto (Bld) [#/Vol] Ordered By: Antwon Hastings on 01-29-2023 Monocytes (Bld) [#/Vol] 0.8 10*3/uL 0.0-0.8 [facility] Monocytes/100 WBC Auto (Bld) Ordered By: Antwon Hastings on 01-29-2023 Monocytes/100 WBC (Bld) 11.1 % . [facility] Neutrophils Auto (Bld) [#/Vo l]Ordered By: Antwon Hastings on 01-29-2023 Neutrophils (Bld) [#/Vol] 4.3 10*3/uL 1.8-7.7 [facility] Neutrophils/100 WBC Auto (Bl d)Ordered By: Antwon Hastings on 01-29-2023 Neutrophils/100 WBC (Bld) 58.0 % . [facility] No Panel InformationOrdered By: Antwon Hastings on 01-29-2023 Estimated GFR (CKD-EPI) > 60.0 mL/Min [facility] Creatinine Clearance (Chem N/A [facility] Nucleated erythrocytes [Pres ence] in Blood by Automated countOrdered By: Antwon Hastings on 01-29-2023 Nucleated RBC Auto Ql (Bld) 0.2 /100{WBC} 0-0.5 [facility] Platelet mean volume Auto (B ld) [Entitic vol]Ordered By: Antwon Hastings on 01-29-2023 Platelet mean volume (Bld) [Entitic vol] 7.2 fL 6.6-10.1 [facility] Platelets Auto (Bld) [#/Vol] Ordered By: Antwon Hastings on 01-29-2023 Platelets (Bld) [#/Vol] 281 10*3/uL 150-450 [facility] Potassium [Moles/volume] in Serum or PlasmaOrdered By: Antwon Hastings on 01-29-2023 Potassium [Moles/Vol] 4.6 mmol/L 3.5-5.1 [facility] RBC Auto (Bld) [#/Vol]Ordere d By: Antwon Hastings on 01-29-2023 RBC (Bld) [#/Vol] 4.22 10*6/uL 3.90-5.60 [facility] Serum or plasma anion gap de terminationOrdered By: Antwon Hastings on 01-29-2023 Anion gap [Moles/Vol] 7.9 mmol/L 6.0-15.0 [facility] Sodium [Moles/volume] in Ser um or PlasmaOrdered By: Antwon Hastings on 01-29-2023 Sodium [Moles/Vol] 136 mmol/L 136-145 [facility] Urea nitrogen [Mass/volume] in Serum or PlasmaOrdered By: Antwon Hastings on 01-29-2023 Urea nitrogen [Mass/Vol] 11 mg/dL 7-25 [facility] WBC Auto (Bld) [#/Vol]Ordere d By: Antwon Hastings on 01-29-2023 WBC (Bld) [#/Vol] 7.4 10*3/uL 4.1-10.5 [facility] Creatinine (Bld) [Mass/Vol]O rdered By: Antwon Hastings on 12-25-2022 Creatinine [Mass/Vol] 1.3 mg/dL 0.6-1.3 [facility] Comment on above: ER/ESD physician is notified/shown all ISTAT results.Critical values may be confirmed by laboratory testing ifdeemed necessary by ER attending doctor. MR cervical spine wo/w conon 12-25-2022 MR cervical spine wo/w con [facility] [employer] Other MR cervical spine wo/w con [facility] [employer] Other MR cervical spine wo/w con [address] [facility] [employer] [facility] [employer] Other MR cervical spine wo/[place] [address] [employer] Other MR cervical spine wo/w con MRI Report [employer] Other MR cervical spine wo/w con Signed [employer] Other MR cervical spine wo/w con Patient: Mary Aburto MR#: [id number] [employer] Other MR cervical spine wo/w con : 1960 Acct:[id number] [employer] Other MR cervical spine wo/w con Age/Sex: 62 / M ADM Date: 12/25/22 [employer] Other MR cervical spine wo/w con Loc: MR Room: Type: [facility] [employer] Other MR cervical spine wo/w con Attending Dr: Antwon Hastings MD [employer] Other MR cervical spine wo/w con Copies to: Antwon Hastings MD [employer] Other MR cervical spine wo/w con Ordering Provider: Antwon Hastings MD [employer] Other MR cervical spine wo/w con Date of Service: 12/25/22 [employer] Other MR cervical spine wo/w con MR/MR cervical spine wo/w con: M47.12 [employer] Other MR cervical spine wo/w con MR cervical spine wo/w con 12/25/2022 1:56 PM [employer] Other MR cervical spine wo/w con SIGNS AND SYMPTOMS: Severe neck pain radiating down right arm with weakness, tingling, and numbness [employer] Other MR cervical spine wo/w con PROTOCOL: Multiplanar multisequence MR images of the cervical spine were obtained with and without [employer] Other MR cervical spine wo/w con IV contrast [employer] Other MR cervical spine wo/w con CONTRAST: 13 mL of intravenous ProHance [employer] Other MR cervical spine wo/w con COMPARISON: 10/23/2022 and 02/08/2022 [employer] Other MR cervical spine wo/w con FINDINGS: There is straightening and mild reversal of the normal cervical lordosis. The bones are in [employer] Other MR cervical spine wo/w con anatomic alignment otherwise. There is preservation of vertebral body heights. There is posterior [employer] Other MR cervical spine wo/w con fusion and decompression from C2 through C5. There is anterior fusion hardware from C5 through T1. [employer] Other MR cervical spine wo/w con There is no change in alignment. The marrow signal is within normal limits. The cord is normal in [employer] Other MR cervical spine wo/w con signal. No epidural or paraspinous fluid collection is appreciated. The visualized paraspinous soft [employer] Other MR cervical spine wo/w con tissues are within normal limits. The prevertebral soft tissues are within normal limits. There is [employer] Other MR cervical spine wo/w con no abnormal postcontrast enhancement. [employer] Other MR cervical spine wo/w con At C2-C3: There is a normal disc, central canal, and neural foramen. [employer] Other MR cervical spine wo/w con At C3-C4: There is a normal disc, central canal, and neural foramen. [employer] Other MR cervical spine wo/w con At C4-C5: There is facet hypertrophy with mild uncovertebral joint spurring contributing to moderate [employer] Other MR cervical spine wo/w con neural foraminal narrowing bilaterally. No spinal canal narrowing. [employer] Other MR cervical spine wo/w con At C5-C6: There is facet hypertrophy with mild uncovertebral joint spurring contributing to mild [employer] Other MR cervical spine wo/w con At C6-C7: There is facet hypertrophy with mild uncovertebral joint spurring contributing to moderate [employer] Other MR cervical spine wo/w con At C7-T1: There is a broad-based disc bulge with facet and negative joint degenerative change [employer] Other MR cervical spine wo/w con contributing to moderate to severe bilateral neural foraminal narrowing with mild spinal canal [employer] Other MR cervical spine wo/w con narrowing. [employer] Other MR cervical spine wo/w con MR/MR cervical spine wo/w con [employer] Other MR cervical spine wo/w con IMPRESSION: [employer] Other MR cervical spine wo/w con There is posterior fusion and decompression from C2 through C5. There is anterior fusion hardware [employer] Other MR cervical spine wo/w con from C5 through T1. There is no change in alignment. [employer] Other MR cervical spine wo/w con Degenerative changes contribute to neural foraminal narrowing bilaterally from C4-C5 through the C7- [employer] Other MR cervical spine wo/w con T1 levels. Neural foraminal narrowing appears to be greatest at C4-C5. [employer] Other MR cervical spine wo/w con No evidence of cord compression or cord signal abnormality. [employer] Other MR cervical spine wo/w con Impression dictated by: Thomas Justice M.D.12/25/2022 5:05 PM [employer] Other MR cervical spine wo/w con Dictation Location: [place] [address] [employer] Other MR cervical spine wo/w con Transcribed By: PWS 12/25/22 1705 [employer] Other MR cervical spine wo/w con Dictated By: Thomas Justice II, MD 12/25/22 1653 [employer] Other MR cervical spine wo/w con Signed By: [employer] Other MR cervical spine wo/w con 12/25/22 1703 [employer] Other No Panel InformationOrdered By: Antwon Hastings on 12-25-2022 POC Estimated GFR > 60 [facility] Comment on above: GFR estimated refere nce range: According to KDOQI guidelines, <60 ml/min/1.73m2 is sufficient to diagnose a patient with chronic kidney disease. POC Estimated GFR Non- Amer 56 [facility] CBC AUTO DIFFon 11-13-2022 BASO # 0.0 103/ul Normal 0.0-0.1 [facility] Comment on above: Performed By: #### C #### [facility] [address] [place] [address] [address] Edilson Mortensen Basophils/100 WBC (Bld) 0.4 % Normal 0.2-2.0 [facility] Comment on above: Performed By: #### C BC #### [facility] [address] [place] [address] [address] Edilson Mortensen EO # 0.2 103/ul Normal 0.0-0.7 [facility] Comment on above: Performed By: #### C BC #### [facility] [address] [place] [address] [address] Edilson Mortensen Eosinophils/100 WBC (Bld) 2.1 % Normal 0.9-7.0 [facility] Comment on above: Performed By: #### C BC #### [facility] [address] [place] [address] Dr. Edilson Mortensen Erythrocyte distribution width (RBC) [Ratio] 13.0 % Normal 11.0-15.0 [facility] Comment on above: Performed By: #### C BC #### [facility] [address] [place] [address] Dr. Edilson Mortensen Hematocrit (Bld) [Volume fraction] 41.6 % Critically low 42.0-54.0 [facility] Comment on above: Performed By: #### C BC #### [facility] [address] [place] [address] Dr. Edilson Mortensen Hemoglobin (Bld) [Mass/Vol] 14.5 g/dL Normal 14.0-18.0 [facility] Comment on above: Performed By: #### C BC #### [facility] [address] [place] [address] Dr. Edilson Mortensen IG # 0.05 10e3/ul Critically high 0.00-0.03 [facility] Comment on above: Performed By: #### C BC #### [facility] [address] [place] [address] [address] Edilson Mortensen IG % 0.6 % Critically high 0.0-0.5 [facility] Comment on above: Performed By: #### C BC #### [facility] [address] [place] [address] [address] Edilson Mortensen LYMPH # 2.2 103/ul Normal 1.2-3.8 [facility] Comment on above: Performed By: #### C BC #### [facility] [address] [place] [address] [address] Edilson Mortensen Lymphocytes/100 WBC (Bld) 23.7 % Normal 20.5-60.0 [facility] Comment on above: Performed By: #### C BC #### [facility] [address] [place] [address] [address] Edilson Mortensen MANUAL DIFF REQ NO Normal [facility] Comment on above: Performed By: #### C BC #### [facility] [address] [place] [address] Dr. Edilson Mortensen MCH (RBC) [Entitic mass] 34.0 pg Normal 25.9-34.0 [facility] Comment on above: Performed By: #### C BC #### [facility] [address] [place] [address] Dr. Edilson Mortensen MCHC (RBC) [Mass/Vol] 34.9 g/dL Normal 29.9-35.2 [facility] Comment on above: Performed By: #### C BC #### [facility] [address] [place] [address] Dr. Edilson Mortensen MCV (RBC) [Entitic vol] 97.7 fL Critically high 80.0-94.0 [facility] Comment on above: Performed By: #### C BC #### [facility] [address] [place] [address] Dr. Edilson Mortensen MONO # 1.1 103/ul Critically high 0.3-0.8 [facility] Comment on above: Performed By: #### C BC #### [facility] [address] [place] [address] Dr. Edilson Mortensen Monocytes/100 WBC (Bld) 12.6 % Critically high 1.7-12.0 [facility] Comment on above: Performed By: #### C BC #### [facility] [address] [place] [address] [address] Edilson Mortensen NEUT # 5.5 103/ul Normal 1.4-6.5 [facility] Comment on above: Performed By: #### C BC #### [facility] [address] [place] [address] [address] Edilson Mortensen Neutrophils/100 WBC (Bld) 60.6 % Normal 43.0-75.0 [facility] Comment on above: Performed By: #### C BC #### [facility] [address] [place] [address] Dr. Edlison Mortensen Platelet mean volume (Bld) [Entitic vol] 8.8 fL Critically low 9.5-13.5 [facility] Comment on above: Performed By: #### C BC #### [facility] [address] [place] [address] Dr. Edilson Mortensen PLT 267 103/ul Normal 150-450 [facility] Comment on above: Performed By: #### C BC #### [facility] [address] [place] [address] Dr. Edilson Mortensen RBC 4.26 106/ul Critically low 4.70-6.10 [facility] Comment on above: Performed By: #### C BC #### [facility] [address] [place] [address] Dr. Edilson Mrotensen WBC 9.1 103/ul Normal 4.0-11.0 [facility] Comment on above: Performed By: #### C BC #### [facility] [address] [place] [address] Dr. Edilson Mortensen CTA CHEST WO W [...] by: AARON MORA Date: 2022-11-13 20:14 Normal [facility] PROF CHEM 8 (BAS METB)on Anion gap [Moles/Vol] 13.9 mmol/L Normal [facility] Comment on above: Performed By: #### T HYLC #### [facility] [address] [place] [address] [address] Edilson Mortensen Calcium [Mass/Vol] 8.6 mg/dL Normal 8.5-10.1 [facility] Comment on above: Performed By: #### T HYLC #### [facility] [address] [place] [address] [address] Edilson Mortensen Chloride [Moles/Vol] 103 mmol/L Normal 98-107 [facility] Comment on above: Performed By: #### T HYLC #### [facility] [address] [address] [address] Edilson Mortensen CO2 [Moles/Vol] 26.8 mmol/L Normal 21.0-32.0 [facility] Comment on above: Performed By: #### T HYLC #### [facility] [address] [address] [address] Edilson Mortensen Creatinine [Mass/Vol] 1.46 mg/dL Critically high 0.70-1.30 [facility] Comment on above: Performed By: #### T HYLC #### [facility] [address] [address] [address] Edilson Mortensen EGFR-AF ISRAELI 60 mL/min/1.73m2 Normal >=60 [facility] Comment on above: Performed By: #### T HYLC #### [facility] [address] [place] [address] [address] Edilson Mortensen EGFR-NON AF ISRAELI 49 mL/min/1.73m2 Critically low >=60 [facility] Comment on above: Performed By: #### T HYLC #### [facility] [address] [address] [address] Edilson Mortensen Glucose [Mass/Vol] 86 mg/dL Normal 74-106 [facility] Comment on above: Performed By: #### T HYLC #### [facility] [address] [address] [address] Edilson Mortensen Potassium [Moles/Vol] 3.7 mmol/L Normal 3.5-5.1 [facility] Comment on above: Performed By: #### T HYLC #### [facility] [address] [address] [address] Edilson Mortensen Sodium [Moles/Vol] 140 mmol/L Normal 136-145 [facility] Comment on above: Performed By: #### T HYLC #### [facility] [address] [address] [address] Edilson Mortensen Urea nitrogen [Mass/Vol] 12.0 mg/dL Normal 7.0-18.0 [facility] Comment on above: Performed By: #### T HYLC #### [facility] [address] [address] [address] Edilson Mortensen Urea nitrogen/Creatinine [Mass ratio] 8.2 mg/mg Normal [facility] Comment on above: Performed By: #### T HYLC #### [facility] [address] [address] [address] Edilson Mortensen PROTIMEon 11-13-2022 INR Coag (PPP) [Relative time] {INR} Normal [facility] Comment on above: Performed By: #### I SAMEER, PSASC, VITB12 #### [facility] [address] [address] [address] Edilson Mortensen INR GUIDELINES SEE BELOW Normal [facility] Comment on above: Result Comment: GERARDO RED INR: 2.0 - 3.0 CONDITIONS NOT LISTED BELOW 2.5 - 3.5 FOR PROSTHETIC HEART VALVE REPLACEMENT 2.5 - 3.5 RECURRENT THROMBOSIS Performed By: #### I IRENA ESTRELLA, VITB12 #### [facility] [address] [place] [address] Dr. Edilson Mortensen PT Coag (PPP) [Time] 9.8 s Normal 9.0-11.6 [facility] Comment on above: Performed By: #### I SAMEER PSASC, VITB12 #### [facility] [address] [place] [address] Dr. Edilson Mortensen PTTon 11-13-2022 aPTT Coag (Bld) [Time] 27.0 s Normal 22.3-36.2 [facility] Comment on above: Performed By: #### I IRENA ESTRELLA, VITB12 #### [facility] [address] [place] [address] Dr. Edilson Mortensen TROPONIN, HIGH SENSITIVITYon 11-13-2022 HSTROP 4.1 pg/mL Normal 4.0-76.1 [facility] Comment on above: Result Comment: CUT- OFF POINTS HAVE BEEN ESTABLISHED BASED ON THE FOURTH UNIVERSAL DEFINITIONS OF MYOCARDIAL INFARCTION. THE UPPER REFERENCE LIMIT (URL) OF TROPONIN, DEFINED THE 99TH PERCENTILE OF cTnI DISTRIBUTION IN A REFERENCE POPULATION, HAS BEEN CONFIRMED THE DECISION THRESHOLD FOR MS DIAGNOSIS. Performed By: #### T HYLC #### [facility] [address] [place] [address] Dr. Edilson Mortensen US SCROTUMon 07-14-2022 US [...] SAMANTA PLASCENCIA Date: 2022-07-14 07:15 Normal [facility] TESTOSTERONE, TOTALon 2021 Testosterone [Mass/Vol] 1038 ng/dL Critically high 264-916 [facility] Comment on above: Result Comment: Adul t male reference interval is based on a population of healthy nonobese males (BMI <30) between 19 and 39 years old. My, et.al. JCEM 2017,102;9427-9537. PMID: [id number]. Performed By: #### T ESTTOT #### [facility] [address] [place] [address] Dr. Edilson Mortensen INSULINon 06-10-2022 Insulin 4.7 uIU/mL Normal 2.6-24.9 [facility] Comment on above: Performed By: #### I SAMEER, PSASC, VITB12 #### [facility] [address] [address] [address] Edilson Mortensen T4, T3U, FTI LABCORPon 06-10 Free Thyroxine Index 2.3 Normal 1.2-4.9 [facility] Comment on above: Performed By: #### T HYLC #### [facility] [address] [place] [address] Dr. Edilson Mortensen T3 Uptake 29 % Normal 24-39 [facility] Comment on above: Performed By: #### T HYLC #### [facility] [address] [address] [address] Edilson Mortensen T4 [Mass/Vol] 7.9 ug/dL Normal 4.5-12.0 [facility] Comment on above: Performed By: #### T HYLC #### [facility] [address] [place] [address] Dr. Edilson Mortensen TESTOSTERONE, TOTALon 2021 Testosterone [Mass/Vol] 1062 ng/dL Critically high 264-916 [facility] Comment on above: Result Comment: Adul t male reference interval is based on a population of healthy nonobese males (BMI <30) between 19 and 39 years old. My, et.al. JCEM 2017,102;6191-3778. PMID: [id number]. Performed By: #### T ESTTOT #### [facility] [address] [address] [address] Edilson Mortensen VIT D 25-OH [facility]on 2021 Vitamin D, 25-Hydroxy 17.9 ng/mL Critically low 30.0-100.0 [facility] Comment on above: Result Comment: Isabel min D deficiency has been defined by the [place] of [employer] and an Endocrine Society practice guideline as a level of serum 25-OH vitamin D less than 20 ng/mL (1,2). The Endocrine Society went on to further define vitamin D insufficiency as a level between 21 and 29 ng/mL (2). 1. IOM ([place] of [employer]). 2010. Dietary reference intakes for calcium and D. [place]: The National Academies Press. 2. Gayla MF, Laura NC, Kelly BARRIOS, et al. Evaluation, treatment, and prevention of vitamin D deficiency: an Endocrine Society clinical practice guideline. JCEM. 2010; 96(7):1911-30. Performed By: #### I SAMEER, PSASC, VITB12 #### [facility] [address] [address] [address] Edilson Mortensen CBC AUTO DIFFon 06-09-2022 BASO # 0.0 103/ul Normal 0.0-0.1 [facility] Comment on above: Performed By: #### C BC #### [facility] [address] [address] [address] Edilson Mortensen Basophils/100 WBC (Bld) 0.4 % Normal 0.2-2.0 [facility] Comment on above: Performed By: #### C BC #### [facility] [address] [address] [address] Edilson Mortensen EO # 0.3 103/ul Normal 0.0-0.7 [facility] Comment on above: Performed By: #### C BC #### [facility] [address] [place] [address] Dr. Edilson Mortensen Eosinophils/100 WBC (Bld) 3.0 % Normal 0.9-7.0 [facility] Comment on above: Performed By: #### C BC #### [facility] [address] [place] [address] Dr. Edislon Mortensen Erythrocyte distribution width (RBC) [Ratio] 12.2 % Normal 11.0-15.0 [facility] Comment on above: Performed By: #### C BC #### [facility] [address] [place] [address] Dr. Edilson Mortensen Hematocrit (Bld) [Volume fraction] 46.0 % Normal 42.0-54.0 [facility] Comment on above: Performed By: #### C BC #### [facility] [address] [place] [address] Dr. Edilson Mortensen Hemoglobin (Bld) [Mass/Vol] 15.6 g/dL Normal 14.0-18.0 [facility] Comment on above: Performed By: #### C BC #### [facility] [address] [place] [address] Dr. Edilson Mortensen IG # 0.05 10e3/ul Critically high 0.00-0.03 [facility] Comment on above: Performed By: #### C BC #### [facility] [address] [place] [address] Dr. Edilson Mortensen IG % 0.5 % Normal 0.0-0.5 [facility] Comment on above: Performed By: #### C BC #### [facility] [address] [place] [address] Dr. Edilson Mortensen LYMPH # 2.6 103/ul Normal 1.2-3.8 [facility] Comment on above: Performed By: #### C BC #### [facility] [address] [place] [address] Dr. Edilson Mortensen Lymphocytes/100 WBC (Bld) 26.1 % Normal 20.5-60.0 [facility] Comment on above: Performed By: #### C BC #### [facility] [address] [place] [address] Dr. Edilson Mortensen MANUAL DIFF REQ NO Normal [facility] Comment on above: Performed By: #### C BC #### [facility] [address] [place] [address] Dr. Edilson Mortensen MCH (RBC) [Entitic mass] 33.6 pg Normal 25.9-34.0 [facility] Comment on above: Performed By: #### C BC #### [facility] [address] [place] [address] Dr. Edilson Mortensen MCHC (RBC) [Mass/Vol] 33.9 g/dL Normal 29.9-35.2 [facility] Comment on above: Performed By: #### C BC #### [facility] [address] [place] [address] Dr. Edilson Mortensen MCV (RBC) [Entitic vol] 99.1 fL Critically high 80.0-94.0 [facility] Comment on above: Performed By: #### C BC #### [facility] [address] [place] [address] Dr. Edilson Mortensen MONO # 1.2 103/ul Critically high 0.3-0.8 [facility] Comment on above: Performed By: #### C BC #### [facility] [address] [place] [address] Dr. Edilson Mortensen Monocytes/100 WBC (Bld) 12.2 % Critically high 1.7-12.0 [facility] Comment on above: Performed By: #### C BC #### [facility] [address] [place] [address] Dr. Edilson Mortensen NEUT # 5.8 103/ul Normal 1.4-6.5 [facility] Comment on above: Performed By: #### C BC #### [facility] [address] [place] [address] Dr. Edilson Mortensen Neutrophils/100 WBC (Bld) 57.8 % Normal 43.0-75.0 [facility] Comment on above: Performed By: #### C BC #### [facility] [address] [address] [address] Edilson Mortensen Platelet mean volume (Bld) [Entitic vol] 8.3 fL Critically low 9.5-13.5 [facility] Comment on above: Performed By: #### C BC #### [facility] [address] [address] [address] Edilson Mortensen PLT 272 103/ul Normal 150-450 [facility] Comment on above: Performed By: #### C BC #### [facility] [address] [place] [address] Dr. Edilson Mortensen RBC 4.64 106/ul Critically low 4.70-6.10 [facility] Comment on above: Performed By: #### C BC #### [facility] [address] [place] [address] Dr. Edilson Mortensen WBC 10.0 103/ul Normal 4.0-11.0 [facility] Comment on above: Performed By: #### C BC #### [facility] [address] [place] [address] Dr. Edilson Mortensen DILANTINon 06-09-2022 Phenytoin [Mass/Vol] 14.6 ug/mL Normal 10.0-20.0 [facility] Comment on above: Performed By: #### I IRENA ESTRELLA, VITB12 #### [facility] [address] [place] [address] Dr. Edilson Mortensen GLYCOHEMOGLOBIN A1Con 2021 ADA RECOMMENDATION SEE BELOW Normal [facility] Comment on above: Result Comment: ADA RECOMMENDED LIMIT 4.0 - 6.0 ADA THERAPEUTIC TARGET < 7.0 ACTION SUGGESTED > 7.0 Performed By: #### I IRENA ESTRELLA, VITB12 #### [facility] [address] [place] [address] Dr. Edilson Mortensen Glucose [Mass/Vol] 108 mg/dL Normal [facility] Comment on above: Performed By: #### I MARGE ESTRELLASC, VITB12 #### [facility] [address] [place] [address] Dr. Edilson Mortensen HbA1c (Bld) [Mass fraction] 5.4 % Normal 4.5-6.2 [facility] Comment on above: Performed By: #### I MARGE ESTRELLASC, VITB12 #### [facility] [address] [address] [address] Edilson Mortensen IRONon 06-09-2022 Iron [Mass/Vol] 109.0 ug/dL Normal 65.0-175.0 [facility] Comment on above: Performed By: #### I SAMEER PSASC, VITB12 #### [facility] [address] [place] [address] Dr. Edilson Mortensen LIPID PROFILEon 06-09-2022 CHOL-HDL RATIO NORM SEE BELOW Normal [facility] Comment on above: Result Comment: 3.3 - 4.4 LOW RISK 4.4 - 7.1 AVERAGE RISK 7.1 - 11.0 MODERATE RISK >11.0 HIGH RISK Performed By: #### I MARGE ESTRELLASC, VITB12 #### [facility] [address] [address] [address] Edilson Mortensen Cholesterol [Mass/Vol] 153 mg/dL Normal <=200 [facility] Comment on above: Performed By: #### I MARGE ESTRELLASC, VITB12 #### [facility] [address] [place] [address] Dr. Edilson Mortensen Cholesterol in HDL [Mass/Vol] 56 mg/dL Normal 40-60 [facility] Comment on above: Performed By: #### I MARGE ESTRELLASC, VITB12 #### [facility] [address] [address] [address] Edilson Mortensen Cholesterol in LDL [Mass/Vol] 75.0 mg/dL Normal [facility] Comment on above: Performed By: #### I SAMEER PSASC, VITB12 #### [facility] [address] [place] [address] Dr. Edilson Mortensen Cholesterol.total/Chol esterol in HDL [Mass ratio] 2.7 {ratio} Normal [facility] Comment on above: Performed By: #### I SAMEER PSASC, VITB12 #### [facility] [address] [address] [address] Edilson Mortensen HDL NORMAL > or = 60 mg/dl - LO W CARDIOVASCULAR RISK <40 mg/dl - HIGH CARDIOVASCULAR RISK Normal [facility] Comment on above: Performed By: #### I MARGE ESTRELLASC, VITB12 #### [facility] [address] [address] [address] Edilson Mortensen LDL CALC NORMAL SEE BELOW Normal [facility] Comment on above: Result Comment: <100 mg/dl OPTIMAL 100 - 129 mg/dl NEAR OR ABOVE OPTIMAL 130 - 159 mg/dl BORDERLINE HIGH 160 - 189 mg/dl HIGH >190 mg/dl VERY HIGH Performed By: #### I MARGE ESTRELLASC, VITB12 #### [facility] [address] [place] [address] Dr. Edilson Mortensen Triglyceride [Mass/Vol] 110 mg/dL Normal <=150 [facility] Comment on above: Performed By: #### I MARGE ESTRELLASC, VITB12 #### [facility] [address] [address] [address] Edilson Mortensen VLDL CALC 22.0 mg/dL Normal [facility] Comment on above: Performed By: #### I SAMEER PSASC, VITB12 #### [facility] [address] [place] [address] Dr. Edilson Mortensen PROF 14(COMP METB)on 022 Albumin [Mass/Vol] 3.6 g/dL Normal 3.4-5.0 [facility] Comment on above: Performed By: #### I SAMEER PSASC, VITB12 #### [facility] [address] [place] [address] Dr. Edilson Mortensen Albumin/Globulin [Mass ratio] 1.1 {ratio} Normal [facility] Comment on above: Performed By: #### I SAMEER PSASC, VITB12 #### [facility] [address] [place] [address] Dr. Edilson Mortensen ALP [Catalytic activity/Vol] 115 U/L Normal 46-116 [facility] Comment on above: Performed By: #### I SAMEER PSASC, VITB12 #### [facility] [address] [address] [address] Edilson Mortensen ALT [Catalytic activity/Vol] 12 U/L Critically low 16-63 [facility] Comment on above: Performed By: #### I SAMEER, PSASC, VITB12 #### [facility] [address] [address] [address] Edilson Mortensen Anion gap [Moles/Vol] 10.6 mmol/L Normal [facility] Comment on above: Performed By: #### I SAMEER, PSASC, VITB12 #### [facility] [address] [address] [address] Edilson Mortensen AST [Catalytic activity/Vol] 11 U/L Critically low 15-37 [facility] Comment on above: Performed By: #### I SAMEER, PSASC, VITB12 #### [facility] [address] [place] [address] Dr. Edilson Mortensen Bilirubin [Mass/Vol] 0.2 mg/dL Normal 0.2-1.0 [facility] Comment on above: Performed By: #### I SAMEER, PSASC, VITB12 #### [facility] [address] [place] [address] Dr. Edilson Mortensen Calcium [Mass/Vol] 9.1 mg/dL Normal 8.5-10.1 [facility] Comment on above: Performed By: #### I SAMEER, PSASC, VITB12 #### [facility] [address] [place] [address] Dr. Edilson Mortensen Chloride [Moles/Vol] 101 mmol/L Normal 98-107 [facility] Comment on above: Performed By: #### I SAMEER, PSASC, VITB12 #### [facility] [address] [place] [address] Dr. Edilson Mortensen CO2 [Moles/Vol] 29.7 mmol/L Normal 21.0-32.0 [facility] Comment on above: Performed By: #### I SAMEER, PSASC, VITB12 #### [facility] [address] [place] [address] Dr. Edilson Mortensen Creatinine [Mass/Vol] 1.11 mg/dL Normal 0.70-1.30 [facility] Comment on above: Performed By: #### I SAMEER PSASC, VITB12 #### [facility] [address] [address] [address] Edilson Mortensen EGFR-AF ISRAELI >60 Normal >=60 [facility] Comment on above: Performed By: #### I SAMEER PSASC, VITB12 #### [facility] [address] [address] [address] Edilson Mortensen EGFR-NON AF ISRAELI >60 Normal >=60 [facility] Comment on above: Performed By: #### I SAMEER PSASC, VITB12 #### [facility] [address] [place] [address] Dr. Edilson Mortensen Globulin (S) [Mass/Vol] 3.4 g/dL Normal [facility] Comment on above: Performed By: #### I SAMEER PSASC, VITB12 #### [facility] [address] [place] [address] Dr. Edilson Mortensen Glucose [Mass/Vol] 111 mg/dL Critically high 74-106 [facility] Comment on above: Performed By: #### I SAMEER PSASC, VITB12 #### [facility] [address] [place] [address] Dr. Edilson Mortensen Potassium [Moles/Vol] 4.3 mmol/L Normal 3.5-5.1 [facility] Comment on above: Performed By: #### I SAMEER PSASC, VITB12 #### [facility] [address] [place] [address] Dr. Edilson Mortensen Protein [Mass/Vol] 7.0 g/dL Normal 6.4-8.2 [facility] Comment on above: Performed By: #### I SAMEER PSASC, VITB12 #### [facility] [address] [place] [address] Dr. Edilson Mortensen Sodium [Moles/Vol] 137 mmol/L Normal 136-145 [facility] Comment on above: Performed By: #### I SAMEER, PSASC, VITB12 #### [facility] [address] [place] [address] Dr. Edilson Mortensen Urea nitrogen [Mass/Vol] 12.0 mg/dL Normal 7.0-18.0 [facility] Comment on above: Performed By: #### I SAMEER, PSASC, VITB12 #### [facility] [address] [place] [address] Dr. Edilson Mortensen Urea nitrogen/Creatinine [Mass ratio] 10.8 mg/mg Normal [facility] Comment on above: Performed By: #### I SAMEER PSASC, VITB12 #### [facility] [address] [place] [address] Dr. Edilson Mortensen TSHon 06-09-2022 TSH 1.807 uIU/mL Normal 0.358-3.74 0 [facility] Comment on above: Performed By: #### I MARGE ESTRELLASC, VITB12 #### [facility] [address] [place] [address] Dr. Edilson Mortensen URIC ACID SERUMon 06-09-2022 Urate [Mass/Vol] 4.1 mg/dL Normal 3.5-7.2 [facility] Comment on above: Performed By: #### I MARGE ESTRELLASC, VITB12 #### [facility] [address] [place] [address] Dr. Edilson Mortensen VITAMIN B12on 06-09-2022 Cobalamin (Vitamin B12) [Mass/Vol] 282.0 pg/mL Normal 193.0-986. 0 [facility] Comment on above: Performed By: #### I SAMEER PSASC, VITB12 #### [facility] [address] [place] [address] Dr. Edilson Motrensen CBC AUTO DIFFon 04-15-2022 BASO # 0.1 103/ul Normal 0.0-0.1 [facility] Comment on above: Performed By: #### I SAMEER PSASC, VITB12 #### [facility] [address] [place] [address] Dr. Edilson Mrotensen Basophils/100 WBC (Bld) 0.5 % Normal 0.2-2.0 [facility] Comment on above: Performed By: #### I SAMEER PSASC, VITB12 #### [facility] [address] [place] [address] Dr. Edilson Mortensen EO # 0.2 103/ul Normal 0.0-0.7 [facility] Comment on above: Performed By: #### I SAMEER PSASC, VITB12 #### [facility] [address] [place] [address] Dr. Edilson Mortensen Eosinophils/100 WBC (Bld) 1.6 % Normal 0.9-7.0 [facility] Comment on above: Performed By: #### I SAMEER PSASC, VITB12 #### [facility] [address] [place] [address] Dr. Edilson Mortensen Erythrocyte distribution width (RBC) [Ratio] 12.8 % Normal 11.0-15.0 [facility] Comment on above: Performed By: #### I SAMEER PSASC, VITB12 #### [facility] [address] [place] [address] Dr. Edilson Mortensen Hematocrit (Bld) [Volume fraction] 41.4 % Critically low 42.0-54.0 [facility] Comment on above: Performed By: #### I SAMEER PSASC, VITB12 #### [facility] [address] [place] [address] Dr. Edilson Mortensen Hemoglobin (Bld) [Mass/Vol] 14.5 g/dL Normal 14.0-18.0 [facility] Comment on above: Performed By: #### I SAMEER, PSASC, VITB12 #### [facility] [address] [place] [address] Dr. Edilson Mortensen IG # 0.12 10e3/ul Critically high 0.00-0.03 [facility] Comment on above: Performed By: #### I SAMEER, PSASC, VITB12 #### [facility] [address] [place] [address] Dr. Edilson Mortensen IG % 1.2 % Critically high 0.0-0.5 [facility] Comment on above: Performed By: #### I SAMEER, PSASC, VITB12 #### [facility] [address] [place] [address] Dr. Edilson Mortensen LYMPH # 1.9 103/ul Normal 1.2-3.8 [facility] Comment on above: Performed By: #### I SAMEER, PSASC, VITB12 #### [facility] [address] [place] [address] Dr. Edilson Mortensen Lymphocytes/100 WBC (Bld) 18.8 % Critically low 20.5-60.0 [facility] Comment on above: Performed By: #### I SAMEER, PSASC, VITB12 #### [facility] [address] [place] [address] Dr. Edilson Mortensen MANUAL DIFF REQ NO Normal [facility] Comment on above: Performed By: #### I SAMEER, PSASC, VITB12 #### [facility] [address] [place] [address] Dr. Edilson Mortensen MCH (RBC) [Entitic mass] 34.1 pg Critically high 25.9-34.0 [facility] Comment on above: Performed By: #### I SAMERE, PSASC, VITB12 #### [facility] [address] [place] [address] Dr. Edilson Mortensen MCHC (RBC) [Mass/Vol] 35.0 g/dL Normal 29.9-35.2 [facility] Comment on above: Performed By: #### I SAMEER, PSASC, VITB12 #### [facility] [address] [place] [address] Dr. Edilson Mortensen MCV (RBC) [Entitic vol] 97.4 fL Critically high 80.0-94.0 [facility] Comment on above: Performed By: #### I SAMEER, PSASC, VITB12 #### [facility] [address] [place] [address] Dr. Edilson Mortensen MONO # 1.2 103/ul Critically high 0.3-0.8 [facility] Comment on above: Performed By: #### I SAMEER, PSASC, VITB12 #### [facility] [address] [place] [address] Dr. Edilson Mortensen Monocytes/100 WBC (Bld) 12.1 % Critically high 1.7-12.0 [facility] Comment on above: Performed By: #### I SAMEER, PSASC, VITB12 #### [facility] [address] [place] [address] Dr. Edilson Mortensen NEUT # 6.7 103/ul Critically high 1.4-6.5 [facility] Comment on above: Performed By: #### I SAMEER, PSASC, VITB12 #### [facility] [address] [place] [address] Dr. Edilson Mortensen Neutrophils/100 WBC (Bld) 65.8 % Normal 43.0-75.0 [facility] Comment on above: Performed By: #### I SAMEER, PSASC, VITB12 #### [facility] [address] [place] [address] Dr. Edilson Mortensen Platelet mean volume (Bld) [Entitic vol] 8.4 fL Critically low 9.5-13.5 [facility] Comment on above: Performed By: #### I SAMEER PSASC, VITB12 #### [facility] [address] [place] [address] Dr. Edilson Mortensen PLT 312 103/ul Normal 150-450 [facility] Comment on above: Performed By: #### I SAMEER, PSASC, VITB12 #### [facility] [address] [place] [address] Dr. Edilson Mortensen RBC 4.25 106/ul Critically low 4.70-6.10 [facility] Comment on above: Performed By: #### I SAMEER, PSASC, VITB12 #### [facility] [address] [place] [address] Dr. Edilson Mortensen WBC 10.2 103/ul Normal 4.0-11.0 [facility] Comment on above: Performed By: #### I SAMEER, PSASC, VITB12 #### [facility] [address] [place] [address] Dr. Edilson Mortensen PROF 14(COMP METB)on 022 Albumin [Mass/Vol] 3.2 g/dL Critically low 3.4-5.0 [facility] Comment on above: Performed By: #### C MP #### [facility] [address] [place] [address] Dr. Edilson Mortensen Albumin/Globulin [Mass ratio] 1.1 {ratio} Normal [facility] Comment on above: Performed By: #### C MP #### [facility] [address] [address] [address] Edilson Mortensen ALP [Catalytic activity/Vol] 153 U/L Critically high 46-116 [facility] Comment on above: Performed By: #### C MP #### [facility] [address] [place] [address] Dr. Edilson Mortensen ALT [Catalytic activity/Vol] 15 U/L Critically low 16-63 [facility] Comment on above: Performed By: #### C MP #### [facility] [address] [place] [address] Dr. Edilson Mortensen Anion gap [Moles/Vol] 11.2 mmol/L Normal [facility] Comment on above: Performed By: #### C MP #### [facility] [address] [place] [address] Dr. Edilson Mortensen AST [Catalytic activity/Vol] 10 U/L Critically low 15-37 [facility] Comment on above: Performed By: #### C MP #### [facility] [address] [place] [address] Dr. Edilson Mortensen Bilirubin [Mass/Vol] 0.4 mg/dL Normal 0.2-1.0 [facility] Comment on above: Performed By: #### C MP #### [facility] [address] [place] [address] Dr. Edilson Mortensen Calcium [Mass/Vol] 9.1 mg/dL Normal 8.5-10.1 [facility] Comment on above: Performed By: #### C MP #### [facility] [address] [place] [address] Dr. Edilson Mortensen Chloride [Moles/Vol] 105 mmol/L Normal 98-107 [facility] Comment on above: Performed By: #### C MP #### [facility] [address] [place] [address] Dr. Edilson Mortensen CO2 [Moles/Vol] 25.9 mmol/L Normal 21.0-32.0 [facility] Comment on above: Performed By: #### C MP #### [facility] [address] [place] [address] Dr. Edilson Mortensen Creatinine [Mass/Vol] 0.82 mg/dL Normal 0.70-1.30 [facility] Comment on above: Performed By: #### C MP #### [facility] [address] [place] [address] Dr. Edilson Mortensen EGFR-AF ISRAELI >60 Normal >=60 [facility] Comment on above: Performed By: #### C MP #### [facility] [address] [place] [address] Dr. Edilson Mortensen EGFR-NON AF ISRAELI >60 Normal >=60 [facility] Comment on above: Performed By: #### C MP #### [facility] [address] [place] [address] Dr. Edilson Mortensen Globulin (S) [Mass/Vol] 3.0 g/dL Normal [facility] Comment on above: Performed By: #### C MP #### [facility] [address] [place] [address] Dr. Edilson Mortensen Glucose [Mass/Vol] 112 mg/dL Critically high 74-106 [facility] Comment on above: Performed By: #### C MP #### [facility] [address] [place] [address] Dr. Edilson Mortensen Potassium [Moles/Vol] 4.1 mmol/L Normal 3.5-5.1 [facility] Comment on above: Performed By: #### C MP #### [facility] [address] [place] [address] Dr. Edilson Mortensen Protein [Mass/Vol] 6.2 g/dL Critically low 6.4-8.2 [facility] Comment on above: Performed By: #### C MP #### [facility] [address] [place] [address] Dr. Edilson Mortensen Sodium [Moles/Vol] 138 mmol/L Normal 136-145 [facility] Comment on above: Performed By: #### C MP #### [facility] [address] [place] [address] Dr. Edilson Mortensen Urea nitrogen [Mass/Vol] 7.0 mg/dL Normal 7.0-18.0 [facility] Comment on above: Performed By: #### C MP #### [facility] [address] [place] [address] Dr. Edilson Mortensen Urea nitrogen/Creatinine [Mass ratio] 8.5 mg/mg Normal [facility] Comment on above: Performed By: #### C MP #### [facility] [address] [place] [address] Dr. Edilson Mortensen BNPon 04-14-2022 Natriuretic peptide B (Bld) [Mass/Vol] 120.0 pg/mL Normal <=900.0 [facility] Comment on above: Performed By: #### I SAMEER PSASC, VITB12 #### [facility] [address] [place] [address] Dr. Edilson Mortensen CBC AUTO DIFFon 04-14-2022 BASO # 0.1 103/ul Normal 0.0-0.1 [facility] Comment on above: Performed By: #### I SAMEER PSASC, VITB12 #### [facility] [address] [place] [address] Dr. Edilson Mortensen Basophils/100 WBC (Bld) 0.4 % Normal 0.2-2.0 [facility] Comment on above: Performed By: #### I SAMEER PSASC, VITB12 #### [facility] [address] [place] [address] Dr. Edilson Mortensen EO # 0.2 103/ul Normal 0.0-0.7 [facility] Comment on above: Performed By: #### I SAMEER, PSASC, VITB12 #### [facility] [address] [place] [address] Dr. Edilson Mortensen Eosinophils/100 WBC (Bld) 1.3 % Normal 0.9-7.0 [facility] Comment on above: Performed By: #### I MARGE ESTRELLASC, VITB12 #### [facility] [address] [place] [address] Dr. Edilson Mortensen Erythrocyte distribution width (RBC) [Ratio] 13.1 % Normal 11.0-15.0 [facility] Comment on above: Performed By: #### I SAMEER PSASC, VITB12 #### [facility] [address] [address] [address] Edilson Mortensen Hematocrit (Bld) [Volume fraction] 43.2 % Normal 42.0-54.0 [facility] Comment on above: Performed By: #### I SAMEER, PSASC, VITB12 #### [facility] [address] [place] [address] Dr. Edilson Mortensen Hemoglobin (Bld) [Mass/Vol] 14.3 g/dL Normal 14.0-18.0 [facility] Comment on above: Performed By: #### I SAMEER PSASC, VITB12 #### [facility] [address] [place] [address] Dr. Edilson Mortensen IG # 0.11 10e3/ul Critically high 0.00-0.03 [facility] Comment on above: Performed By: #### I SAMEER, PSASC, VITB12 #### [facility] [address] [place] [address] Dr. Edilson Mortensen IG % 0.9 % Critically high 0.0-0.5 [facility] Comment on above: Performed By: #### I SAMEER, PSASC, VITB12 #### [facility] [address] [place] [address] Dr. Edilson Mortensen LYMPH # 2.0 103/ul Normal 1.2-3.8 [facility] Comment on above: Performed By: #### I SAMEER, PSASC, VITB12 #### [facility] [address] [place] [address] Dr. Edilson Mortensen Lymphocytes/100 WBC (Bld) 15.8 % Critically low 20.5-60.0 [facility] Comment on above: Performed By: #### I SAMEER, PSASC, VITB12 #### [facility] [address] [place] [address] Dr. Edilson Mortensen MANUAL DIFF REQ NO Normal [facility] Comment on above: Performed By: #### I SAMEER, PSASC, VITB12 #### [facility] [address] [place] [address] Dr. Edilson Mortensen MCH (RBC) [Entitic mass] 33.6 pg Normal 25.9-34.0 [facility] Comment on above: Performed By: #### I SAMEER, PSASC, VITB12 #### [facility] [address] [place] [address] Dr. Edilson Mortensen MCHC (RBC) [Mass/Vol] 33.1 g/dL Normal 29.9-35.2 [facility] Comment on above: Performed By: #### I SAMEER, PSASC, VITB12 #### [facility] [address] [place] [address] Dr. Edilson Mortensen MCV (RBC) [Entitic vol] 101.6 fL Critically high 80.0-94.0 [facility] Comment on above: Performed By: #### I SAMEER, PSASC, VITB12 #### [facility] [address] [place] [address] Dr. Edilson Mortensen MONO # 1.5 103/ul Critically high 0.3-0.8 [facility] Comment on above: Performed By: #### I SAMEER, PSASC, VITB12 #### [facility] [address] [place] [address] Dr. Edilson Mortensen Monocytes/100 WBC (Bld) 11.5 % Normal 1.7-12.0 [facility] Comment on above: Performed By: #### I SAMEER, PSASC, VITB12 #### [facility] [address] [place] [address] Dr. Edilson Mortensen NEUT # 8.9 103/ul Critically high 1.4-6.5 [facility] Comment on above: Performed By: #### I SAMEER PSASC, VITB12 #### [facility] [address] [address] [address] Edilson Mortensen Neutrophils/100 WBC (Bld) 70.1 % Normal 43.0-75.0 [facility] Comment on above: Performed By: #### I SAMEER PSASC, VITB12 #### [facility] [address] [place] [address] Dr. Edilson Mortensen Platelet mean volume (Bld) [Entitic vol] 8.3 fL Critically low 9.5-13.5 [facility] Comment on above: Performed By: #### I MARGE ESTRELLASC, VITB12 #### [facility] [address] [place] [address] Dr. Edilson Mortensen PLT 328 103/ul Normal 150-450 [facility] Comment on above: Performed By: #### MARGE SCOTTSC, VITB12 #### [facility] [address] [address] [address] Edilson Mortensen RBC 4.25 106/ul Critically low 4.70-6.10 [facility] Comment on above: Performed By: #### I MARGE ESTRELLASC, VITB12 #### [facility] [address] [place] [address] Dr. Edilson Mortensen WBC 12.6 103/ul Critically high 4.0-11.0 [facility] Comment on above: Performed By: #### Nola ESTRELLA PSASC, VITB12 #### [facility] [address] [place] [address] Dr. Edilosn Mortensen CTA CHEST WO W CONon -17-2 022 CTA CHEST WO W CON CTA [...] The subdiaphragmatic abdominal organs included in the [id number] do not demonstrate any acute abnormality. IMPRESSION: 1. Positive for small left-sided acute pulmonary emboli. No heart strain. 2. Groundglass opacities in the lung bases. Please correlate for pneumonia versus atelectasis. 3. Ascending aorta is aneurysmal measuring 4 cm. CRITICAL findings: Spoke with Dr. Johny oCllazo at 9:23 [facility] EST Electronically authenticated by: MOIZ BROWNING Date: 2022-04-14 21:31 Normal [facility] Covid-19 PCR (CVDTBH)on 03-29 SARS-CoV-2 (COVID-19) RNA KEATON+probe Ql (Unsp spec) Not detected Normal NOT DETECTED [facility] Comment on above: Result Comment: When [...] for this test is supported by the [place] of [employer] and Human Service's declaration that [...] used). Performed By: #### C VDTBH #### [facility] [address] [place] [address] Dr. Edilson Mortensen D-DIMERon 04-14-2022 D-DIMER 1.18 mg/L FEU Critically high <=0.59 [facility] Comment on above: Performed By: #### T HYLC #### [facility] [address] [place] [address] Dr. Edilson Mortensen D-DIMER COMMENTS SEE BELOW Normal [facility] Comment on above: Result Comment: Incr eases [...] hospitalization. Performed By: #### T HYLC #### [facility] [address] [place] [address] Dr. Edilson Mortensen PROF 14(COMP METB)on 022 Albumin [Mass/Vol] 3.2 g/dL Critically low 3.4-5.0 [facility] Comment on above: Performed By: #### I IRENA ESTRELLA, VITB12 #### [facility] [address] [place] [address] Dr. Edilson Mortensen Albumin/Globulin [Mass ratio] 0.8 {ratio} Normal [facility] Comment on above: Performed By: #### I IRENA ESTRELLA, VITB12 #### [facility] [address] [place] [address] Dr. Edilson Mortensen ALP [Catalytic activity/Vol] 141 U/L Critically high 46-116 [facility] Comment on above: Performed By: #### I SAMEER, PSASC, VITB12 #### [facility] [address] [address] [address] Edilson Mortensen ALT [Catalytic activity/Vol] 13 U/L Critically low 16-63 [facility] Comment on above: Performed By: #### I SAMEER, PSASC, VITB12 #### [facility] [address] [place] [address] Dr. Edilson Mortensen Anion gap [Moles/Vol] 13.7 mmol/L Normal [facility] Comment on above: Performed By: #### I SAMEER PSASC, VITB12 #### [facility] [address] [place] [address] Dr. Edilson Mortensen AST [Catalytic activity/Vol] 10 U/L Critically low 15-37 [facility] Comment on above: Performed By: #### I SAMEER PSASC, VITB12 #### [facility] [address] [place] [address] Dr. Edilson Mortensen Bilirubin [Mass/Vol] 0.2 mg/dL Normal 0.2-1.0 [facility] Comment on above: Performed By: #### I SAMEER PSASC, VITB12 #### [facility] [address] [place] [address] Dr. Edilson Mortensen Calcium [Mass/Vol] 9.0 mg/dL Normal 8.5-10.1 [facility] Comment on above: Performed By: #### I SAMEER PSASC, VITB12 #### [facility] [address] [place] [address] Dr. Edilson Mortensen Chloride [Moles/Vol] 104 mmol/L Normal 98-107 [facility] Comment on above: Performed By: #### I SAMEER PSASC, VITB12 #### [facility] [address] [place] [address] Dr. Edilson Mortensen CO2 [Moles/Vol] 27.0 mmol/L Normal 21.0-32.0 [facility] Comment on above: Performed By: #### I SAMEER, PSASC, VITB12 #### [facility] [address] [address] [address] Edilson Mortensen Creatinine [Mass/Vol] 0.88 mg/dL Normal 0.70-1.30 [facility] Comment on above: Performed By: #### I SAMEER, PSASC, VITB12 #### [facility] [address] [address] [address] Edilson Mortensen EGFR-AF ISRAELI >60 Normal >=60 [facility] Comment on above: Performed By: #### I SAMEER, PSASC, VITB12 #### [facility] [address] [address] [address] Edilson Mortensen EGFR-NON AF ISRAELI >60 Normal >=60 [facility] Comment on above: Performed By: #### I SAMEER, PSASC, VITB12 #### [facility] [address] [address] [address] Edilson Mortensen Globulin (S) [Mass/Vol] 3.9 g/dL Normal [facility] Comment on above: Performed By: #### I SAMEER, PSASC, VITB12 #### [facility] [address] [address] [address] Edilson Mortensen Glucose [Mass/Vol] 92 mg/dL Normal 74-106 [facility] Comment on above: Performed By: #### I SAMEER, PSASC, VITB12 #### [facility] [address] [address] [address] Edilson Mortensen Potassium [Moles/Vol] 4.0 mmol/L Normal 3.5-5.1 [facility] Comment on above: Performed By: #### I SAMEER, PSASC, VITB12 #### [facility] [address] [address] [address] Edilson Mortensen Protein [Mass/Vol] 7.1 g/dL Normal 6.4-8.2 [facility] Comment on above: Performed By: #### I SAMEER, PSASC, VITB12 #### [facility] [address] [address] [address] Edilson Mortensen Sodium [Moles/Vol] 141 mmol/L Normal 136-145 [facility] Comment on above: Performed By: #### I IRENA ESTRELLA, VITB12 #### [facility] [address] [place] [address] Dr. Edilson Mortensen Urea nitrogen [Mass/Vol] 9.0 mg/dL Normal 7.0-18.0 [facility] Comment on above: Performed By: #### I IRENA ESTRELLA, VITB12 #### [facility] [address] [place] [address] Dr. Edilson Mortensen Urea nitrogen/Creatinine [Mass ratio] 10.2 mg/mg Normal [facility] Comment on above: Performed By: #### I IRENA ESTRELLA, VITB12 #### [facility] [address] [place] [address] Dr. Edilson Mortensen PROTIMEon 04-14-2022 INR Coag (PPP) [Relative time] {INR} Normal [facility] Comment on above: Performed By: #### T HYLC #### [facility] [address] [place] [address] Dr. Edilson Mortensen INR GUIDELINES SEE BELOW Normal [facility] Comment on above: Result Comment: GERARDO RED INR: 2.0 - 3.0 CONDITIONS NOT LISTED BELOW 2.5 - 3.5 FOR PROSTHETIC HEART VALVE REPLACEMENT 2.5 - 3.5 RECURRENT THROMBOSIS Performed By: #### T HYLC #### [facility] [address] [place] [address] Dr. Edilson Mortensen PT Coag (PPP) [Time] 9.7 s Normal 9.0-11.6 [facility] Comment on above: Performed By: #### T HYLC #### [facility] [address] [place] [address] Dr. Edilson Mortensen PTTon 04-14-2022 aPTT Coag (Bld) [Time] 28.5 s Normal 22.3-36.2 [facility] Comment on above: Performed By: #### T HYLC #### [facility] [address] [place] [address] Dr. Edilson Mortensen TROPONIN, HIGH SENSITIVITYon 04-14-2022 HSTROP 6.7 pg/mL Normal 4.0-76.1 [facility] Comment on above: Result Comment: CUT- OFF POINTS HAVE BEEN ESTABLISHED BASED ON THE FOURTH UNIVERSAL DEFINITIONS OF MYOCARDIAL INFARCTION. THE UPPER REFERENCE LIMIT (URL) OF TROPONIN, DEFINED THE 99TH PERCENTILE OF cTnI DISTRIBUTION IN A REFERENCE POPULATION, HAS BEEN CONFIRMED THE DECISION THRESHOLD FOR MS DIAGNOSIS. Performed By: #### I SAMEER, PSASC, VITB12 #### [facility] [address] [address] [address] Edilson Mortensen XR CHEST 1 Von [...] by: SAMANTA JENNINGS Date: 2022-04-14 18:40 Normal [facility] XR CSPINE 2_3 VIEWSon 2021 XR [...] by: SAMANTA PLASCENCIA Date: 2022-03-16 07:11 Normal [facility] Activated partial thrombopla stin time (aPTT) in platelet poor plasma by coagulation aOrdered By: Antwon Hastings on 02-28-2022 aPTT Coag (PPP) [Time] 24.3 s 25.1-36.5 [facility] Albumin [Mass/volume] in Ser um or PlasmaOrdered By: Laura Yu on 02-28-2022 Albumin [Mass/Vol] 3.5 g/dL 3.2-5.5 [facility] Basophils Auto (Bld) [#/Vol] Ordered By: Antwon Hastings on 02-28-2022 Basophils (Bld) [#/Vol] 0.0 10*3/uL 0.0-0.2 [facility] Basophils Auto (Bld) [#/Vol] Ordered By: Laura Yu on 02-28-2022 Basophils (Bld) [#/Vol] 0.1 10*3/uL 0.0-0.2 [facility] Basophils/100 WBC Auto (Bld) Ordered By: Antwon Hastings on 02-28-2022 Basophils/100 WBC (Bld) 0.3 % [facility] Basophils/100 WBC Auto (Bld) Ordered By: Laura Yu on 02-28-2022 Basophils/100 WBC (Bld) 0.6 % [facility] Blood hemoglobin measurement (mass/volume)Ordered By: Antwon Hastings on 02-28-2022 Hemoglobin (Bld) [Mass/Vol] 15.3 g/dL 13.0-17.0 [facility] Blood hemoglobin measurement (mass/volume)Ordered By: Laura Yu on 02-28-2022 Hemoglobin (Bld) [Mass/Vol] 15.1 g/dL 13.0-17.0 [facility] Blood leukocytes automated c ount (number/volume)Ordered By: Antwon Hastings on 02-28-2022 WBC (Bld) [#/Vol] 13.1 10*3/uL 4.5-11.0 [facility] Blood leukocytes automated c ount (number/volume)Ordered By: Laura Yu on 02-28-2022 WBC (Bld) [#/Vol] 13.1 10*3/uL 4.5-11.0 [facility] COVID-19 Positive/NegativeOr dered By: Laura Yu on 02-28-2022 SARS-CoV-2 (COVID-19) N gene KEATON+probe Ql (Resp) Negative Negative [facility] Comment on above: Testing for SARS-CoV -2 by RT-PCR This test was developed and its performance characteristics determined by [employer] ([employer]) and validated at the [facility]. This test has not been FDA cleared [...] (COVID-19) Ag IA.rapid Ql (Resp) Negative Negative [facility] Comment on above: This is a duplicate Iraida SARS Antigen (HAILEE) result to be used for statistical tracking purpose only. Creatinine and Glomerular fi ltration rate.predicted panel (S/P/Bld)Ordered By: Antwon Hastings on 02-28-2022 Creatinine [Mass/Vol] 1.00 mg/dL 0.64-1.27 [facility] Creatinine and Glomerular fi ltration rate.predicted panel (S/P/Bld)Ordered By: Laura Yu on 02-28-2022 Creatinine [Mass/Vol] 0.97 mg/dL 0.64-1.27 [facility] Eosinophils Auto (Bld) [#/Vo l]Ordered By: Antwon Hastings on 02-28-2022 Eosinophils (Bld) [#/Vol] 0.0 10*3/uL 0.0-0.45 [facility] Eosinophils Auto (Bld) [#/Vo l]Ordered By: Laura Yu on 02-28-2022 Eosinophils (Bld) [#/Vol] 0.0 10*3/uL 0.0-0.45 [facility] Eosinophils/100 WBC Auto (Bl d)Ordered By: Antwon Hastings on 02-28-2022 Eosinophils/100 WBC (Bld) 0.4 % [facility] Eosinophils/100 WBC Auto (Bl d)Ordered By: Laura Yu on 02-28-2022 Eosinophils/100 WBC (Bld) 0.1 % [facility] Erythrocyte distribution wid th Auto (RBC) [Ratio]Ordered By: Antwon Hastings on 02-28-2022 Erythrocyte distribution width (RBC) [Ratio] 13.3 % 12.0-14.8 [facility] Erythrocyte distribution wid th Auto (RBC) [Ratio]Ordered By: Laura Yu on 02-28-2022 Erythrocyte distribution width (RBC) [Ratio] 13.3 % 12.0-14.8 [facility] Estimated glomerular filtrat ion rate (GFR) non- AmericanOrdered By: Antwon Hastings on 02-28-2022 GFR/1.73 sq M.predicted among non-blacks MDRD (S/P/Bld) [Vol rate/Area] > 60 mL/Min [facility] Estimated glomerular filtrat ion rate (GFR) non- AmericanOrdered By: Laura Yu on 02-28-2022 GFR/1.73 sq M.predicted among non-blacks MDRD (S/P/Bld) [Vol rate/Area] > 60 mL/Min [facility] Globulin Calc (S) [Mass/Vol] Ordered By: Laura Yu on 02-28-2022 Globulin (S) [Mass/Vol] 2.7 g/dL [facility] Hematocrit Auto (Bld) [Volum e fraction]Ordered By: Antwon Hastings on 02-28-2022 Hematocrit (Bld) [Volume fraction] 43.3 % 38.8-50.0 [facility] Hematocrit Auto (Bld) [Volum e fraction]Ordered By: Laura Yu on 02-28-2022 Hematocrit (Bld) [Volume fraction] 44.1 % 38.8-50.0 [facility] - Chemistry and C hemistry - challengeOrdered By: Antwon Hastings on 02-28-2022 Natriuretic peptide B (Bld) [Mass/Vol] 79.0 pg/mL 5-100 [facility] - CoagulationOrde red By: Antwon Hastings on 02-28-2022 PT Coag (PPP) [Time] 10.0 s 9.0-12.9 [facility] - CoagulationOrde red By: Laura Yu on 02-28-2022 PT Coag (PPP) [Time] 10.0 s 9.0-12.9 [facility] - Hematology and Cell countsOrdered By: Antwon Hastings on 02-28-2022 Nucleated RBC/100 WBC (Bld) [Ratio] 0.0 % 0-0.5 [facility] - Hematology and Cell countsOrdered By: Laura Yu on 02-28-2022 Nucleated RBC/100 WBC (Bld) [Ratio] 0.1 % 0-0.5 [facility] Lymphocytes Auto (Bld) [#/Vo l]Ordered By: Antwon Hastings on 02-28-2022 Lymphocytes (Bld) [#/Vol] 2.0 10*3/uL 1.00-4.8 [facility] Lymphocytes Auto (Bld) [#/Vo l]Ordered By: Laura Yu on 02-28-2022 Lymphocytes (Bld) [#/Vol] 1.2 10*3/uL 1.00-4.8 [facility] Lymphocytes/100 WBC Auto (Bl d)Ordered By: Antwon Hastings on 02-28-2022 Lymphocytes/100 WBC (Bld) 15.3 % [facility] Lymphocytes/100 WBC Auto (Bl d)Ordered By: Laura Yu on 02-28-2022 Lymphocytes/100 WBC (Bld) 9.5 % [facility] MCH Auto (RBC) [Entitic mass ]Ordered By: Antwon Hastings on 02-28-2022 MCH (RBC) [Entitic mass] 34.9 pg 27.5-35.2 [facility] MCH Auto (RBC) [Entitic mass ]Ordered By: Laura Yu on 02-28-2022 MCH (RBC) [Entitic mass] 33.9 pg 27.5-35.2 [facility] MCHC Auto (RBC) [Mass/Vol]Or dered By: Antwon Hastings on 02-28-2022 MCHC (RBC) [Mass/Vol] 35.2 g/dL 32.5-35.6 [facility] MCHC Auto (RBC) [Mass/Vol]Or dered By: Laura Yu on 02-28-2022 MCHC (RBC) [Mass/Vol] 34.3 g/dL 32.5-35.6 [facility] MCV Auto (RBC) [Entitic vol] Ordered By: Antwon Hastings on 02-28-2022 MCV (RBC) [Entitic vol] 99.0 fL 83.5-101 [facility] MCV Auto (RBC) [Entitic vol] Ordered By: Laura Yu on 02-28-2022 MCV (RBC) [Entitic vol] 98.6 fL 83.5-101 [facility] Monocytes Auto (Bld) [#/Vol] Ordered By: Antwon Hastings on 02-28-2022 Monocytes (Bld) [#/Vol] 0.8 10*3/uL 0.0-0.8 [facility] Monocytes Auto (Bld) [#/Vol] Ordered By: Laura Yu on 02-28-2022 Monocytes (Bld) [#/Vol] 1.0 10*3/uL 0.0-0.8 [facility] Monocytes/100 WBC Auto (Bld) Ordered By: Antwon Hastings on 02-28-2022 Monocytes/100 WBC (Bld) 6.2 % [facility] Monocytes/100 WBC Auto (Bld) Ordered By: Laura Yu on 02-28-2022 Monocytes/100 WBC (Bld) 7.6 % [facility] Neutrophils Auto (Bld) [#/Vo l]Ordered By: Antwon Hastings on 02-28-2022 Neutrophils (Bld) [#/Vol] 10.2 10*3/uL 1.8-7.7 [facility] Neutrophils Auto (Bld) [#/Vo l]Ordered By: Laura Yu on 02-28-2022 Neutrophils (Bld) [#/Vol] 10.8 10*3/uL 1.8-7.7 [facility] Neutrophils/100 WBC Auto (Bl d)Ordered By: Antwon Hastings on 02-28-2022 Neutrophils/100 WBC (Bld) 77.8 % [facility] Neutrophils/100 WBC Auto (Bl d)Ordered By: Laura Yu on 02-28-2022 Neutrophils/100 WBC (Bld) 82.2 % [facility] No Panel InformationOrdered By: Antwon Hastings on 02-28-2022 Estimated GFR () > 60 mL/Min [facility] Comment on above: GFR estimated refere nce range: According to KDOQI guidelines, <60 ml/min/1.73m2 is sufficient to diagnose a patient with chronic kidney disease. Pharmacy Creatinine Clearance (Chem 72.57 [facility] No Panel InformationOrdered By: Laura Yu on 02-28-2022 Estimated GFR () > 60 mL/Min [facility] Comment on above: GFR estimated refere nce range: According to KDOQI guidelines, <60 ml/min/1.73m2 is sufficient to diagnose a patient with chronic kidney disease. Pharmacy Creatinine Clearance (Chem 74.82 [facility] SARS Antigen (LFIA) [facility] Platelet mean volume Auto (B ld) [Entitic vol]Ordered By: Antwon Hastings on 02-28-2022 Platelet mean volume (Bld) [Entitic vol] 6.4 fL 6.6-10.1 [facility] Platelet mean volume Auto (B ld) [Entitic vol]Ordered By: Laura Yu on 02-28-2022 Platelet mean volume (Bld) [Entitic vol] 6.4 fL 6.6-10.1 [facility] Platelet poor plasma interna tional normalized ratio (INR) by coagulation assay (relatOrdered By: Antwon Hastings on 02-28-2022 INR Coag (PPP) [Relative time] 0.9 {INR} [facility] Comment on above: INR Therapeutic Rang e [...] INR Coag (PPP) [Relative time] 0.9 {INR} [facility] Comment on above: INR Therapeutic Rang e [...] 02-28-2022 Platelets (Bld) [#/Vol] 316 10*3/uL 150-450 [facility] Platelets Auto (Bld) [#/Vol] Ordered By: Laura Yu on 02-28-2022 Platelets (Bld) [#/Vol] 316 10*3/uL 150-450 [facility] Protein [Mass/volume] in Ser um or PlasmaOrdered By: Laura Yu on 02-28-2022 Protein [Mass/Vol] 6.2 g/dL 6.1-7.9 [facility] RBC Auto (Bld) [#/Vol]Ordere d By: Antwon Hastings on 02-28-2022 RBC (Bld) [#/Vol] 4.38 10*6/uL 3.90-5.60 [facility] RBC Auto (Bld) [#/Vol]Ordere d By: Laura Yu on 02-28-2022 RBC (Bld) [#/Vol] 4.47 10*6/uL 3.90-5.60 [facility] Serum or plasma alanine bowden otransferase measurement without P-5'-P (enzymatic activiOrdered By: Laura Yu on 02-28-2022 ALT No additional P-5'-P [Catalytic activity/Vol] 25 U/L 10-60 [facility] Serum or plasma albumin/glob ulin mass ratioOrdered By: Laura Yu on 02-28-2022 Albumin/Globulin [Mass ratio] 1.3 {ratio} [facility] Serum or plasma alkaline mariella sphatase measurement (enzymatic activity/volume)Ordered By: Laura Yu on 02-28-2022 ALP [Catalytic activity/Vol] 67 U/L 32-92 [facility] Serum or plasma aspartate am inotransferase measurement (enzymatic activity/volume)Ordered By: Laura Yu on 02-28-2022 AST [Catalytic activity/Vol] 14 U/L 10-42 [facility] Serum or plasma calcium carlos urement (mass/volume)Ordered By: Antwon Hastings on 02-28-2022 Calcium [Mass/Vol] 9.0 mg/dL 8.2-10.2 [facility] Serum or plasma calcium carlos urement (mass/volume)Ordered By: Laura Yu on 02-28-2022 Calcium [Mass/Vol] 9.0 mg/dL 8.2-10.2 [facility] Serum or plasma chloride french surement (moles/volume)Ordered By: Antwon Hastings on 02-28-2022 Chloride [Moles/Vol] 97 mmol/L 95-114 [facility] Serum or plasma chloride french surement (moles/volume)Ordered By: Laura Yu on 02-28-2022 Chloride [Moles/Vol] 100 mmol/L 95-114 [facility] Serum or plasma glucose carlos urement (mass/volume)Ordered By: Antwon Hastings on 02-28-2022 Glucose [Mass/Vol] 130 mg/dL 70-100 [facility] Comment on above: ADA recommended refe rence range Random Glucose Reference Range is dependent on time and content of last meal. Glucose of more than 200 mg/dL in a nonstressed, ambulatory subject supports the diagnosis of Diabetes Mellitus. Serum or plasma glucose carlos urement (mass/volume)Ordered By: Laura Yu on 02-28-2022 Glucose [Mass/Vol] 123 mg/dL 70-100 [facility] Comment on above: ADA recommended refe rence rangeRandom Glucose Reference Range is dependent on time and content of last meal. Glucose of more than 200 mg/dL in a nonstressed, ambulatory subject supports the diagnosis of Diabetes Mellitus. Serum or plasma potassium me asurement (moles/volume)Ordered By: Antwon Hastings on 02-28-2022 Potassium [Moles/Vol] 3.9 mmol/L 3.5-5.1 [facility] Serum or plasma potassium me asurement (moles/volume)Ordered By: Laura Yu on 02-28-2022 Potassium [Moles/Vol] 4.1 mmol/L 3.5-5.1 [facility] Serum or plasma sodium measu rement (moles/volume)Ordered By: Antwon Hastings on 02-28-2022 Sodium [Moles/Vol] 133 mmol/L 136-146 [facility] Serum or plasma sodium measu rement (moles/volume)Ordered By: Laura Yu on 02-28-2022 Sodium [Moles/Vol] 133 mmol/L 136-146 [facility] Serum or plasma total biliru bin measurement (mass/volume)Ordered By: Laura Yu on 02-28-2022 Bilirubin [Mass/Vol] 0.4 mg/dL 0.3-1.2 [facility] Serum or plasma total carbon dioxide measurement (moles/volume)Ordered By: Antwon Hastings on 02-28-2022 CO2 [Moles/Vol] 24.7 mmol/L 22.0-30.0 [facility] Serum or plasma total carbon dioxide measurement (moles/volume)Ordered By: Laura Yu on 02-28-2022 CO2 [Moles/Vol] 23.7 mmol/L 22.0-30.0 [facility] Serum or plasma urea nitroge n measurement (mass/volume)Ordered By: Antwon Hastings on 02-28-2022 Urea nitrogen [Mass/Vol] 13 mg/dL 07-21 [facility] Serum or plasma urea nitroge n measurement (mass/volume)Ordered By: Laura Yu on 02-28-2022 Urea nitrogen [Mass/Vol] 13 mg/dL 07-21 [facility] Amphetamine Screen Ql (U)Ord ered By: Devika De Los Santos on 02-08-2022 Amphetamines Ql (U) Negative Negative [facility] Barbiturates [Presence] in U rineOrdered By: Devika De Los Santos on 02-08-2022 Barbiturates Ql (U) Negative Negative [facility] Benzodiazepines [Presence] i n UrineOrdered By: Devika De Los Santos on 02-08-2022 Benzodiazepines Ql (U) Negative Negative [facility] Cannabinoids [Presence] in U rine by Screen methodOrdered By: Devika De Los Santos on 02-08-2022 Cannabinoids Screen Ql (U) Positive Negative [facility] Comment on above: These are unconfirme d [...] ng/mL Laboratory - Drug toxicology Ordered By: Devika De Los Santos on 02-08-2022 Opiates Ql (U) Negative Negative [facility] Phencyclidine Screen Ql (U)O rdered By: Devika De Los Santos on 02-08-2022 Phencyclidine Ql (U) Negative Negative [facility] Urine cocaine detectionOrder ed By: Devika De Los Santos on 02-08-2022 Cocaine Ql (U) Negative Negative [facility] COVID-19 SOFIAOrdered By: Do henny Lara on 02-06-2022 SARS-CoV+SARS-CoV-2 (COVID-19) Ag IA.rapid Ql (Resp) Negative Negative [facility] Comment on above: This is a duplicate [facility] SARS Antigen (HAILEE) result to be used for statistical tracking purpose only. No Panel InformationOrdered By: Yury Lara on 02-06-2022 SARS Antigen (LFIA) [facility] Cardiovascular Lab Reporton 01-21-2019 Cardiovascular Lab Report [facility] Patient Name: Mary Aburto [facility] MR #: [id number] Physician: Theodora Bundy of [facility] Date: 01/21/2019 Division of Birthdate: 1960 Cardiology Room #: Adult Cardiovascular Services [address] [place] [place] [address] Cardiovascular Laboratory Report INDICATION: The patient is [...] signed informed consent. He was brought to rn labor delivery in a fasting state. The left wrist area was prepped and draped in usual fashion. Chas's test was favorable. Access in the left radial artery was obtained using micropuncture technique, a 6-Portuguese x 11 cm Hydrophilic sheath was advanced. Verapamil was given through the sheath and heparin was administered intravenously. Bilateral selective coronary angiography was then performed using 6-Portuguese JL4 and JR4 diagnostic catheters. Catheters were [...] in Cardiology Clinic. Electronically Signed by: Theodora Edwards M.D. 02/02/2019 06:04 P Theodora Edwards M.D. Date Dict: 01/21/2019/02:15 P/Theodora Edwards M.D. Date Trans: 01/21/2019 04:37 P/sidney [id number] cc: Yury Lara M.D. [address], [facility] [id number] [facility] Vital Signs Date Time Vital Sign Value Performing Clinician Facility 09-16-2024 08:41-0500 Diastolic blood pressure 77 mm[Hg] Luz Hernandes [facility] 09-16-2024 08:41-0500 Heart rate 52 /min Luz Vycon [facility] 09-16-2024 08:41-0500 Mean blood pressure 88 mm[Hg] Luz Vycon [facility] 09-16-2024 08:41-0500 Respiratory rate 16 /min Luz Vycon [facility] 09-16-2024 08:41-0500 Systolic blood pressure 110 mm[Hg] Luz Vycon [facility] 08-05-2024 08:19-0400 Diastolic blood pressure 69 mm[Hg] Luz Vycon [facility] 08-05-2024 08:19-0400 Heart rate 60 /min Luz Vycon [facility] 08-05-2024 08:19-0400 Mean blood pressure 80 mm[Hg] Luz Vycon [facility] 08-05-2024 08:19-0400 Respiratory rate 14 /min Luzcanelo Hernandes [facility] 08-05-2024 08:19-0400 Systolic blood pressure 103 mm[Hg] Luzcanelo Hernandes [facility] 07-15-2024 15:26-0400 Blood Pressure Location Henrique NILL [facility] 07-15-2024 15:26-0400 Diastolic blood pressure 86 mm[Hg] Henrique NILL [facility] 07-15-2024 15:26-0400 Heart rate 72 /min Henrique NILL [facility] 07-15-2024 15:26-0400 Respiratory rate 16 /min Henrique KAVYAL [facility] 07-15-2024 15:26-0400 Systolic blood pressure 126 mm[Hg] Henrique NILL [facility] 06-25-2024 08:42-0400 Diastolic blood pressure 64 mm[Hg] Luz Hernandes [facility] 06-25-2024 08:42-0400 Heart rate 59 /min Luz Hernandes [facility] 06-25-2024 08:42-0400 Mean blood pressure 78 mm[Hg] Luz Hernandes [facility] 06-25-2024 08:42-0400 Respiratory rate 16 /min Luz Hernandes [facility] 06-25-2024 08:42-0400 Systolic blood pressure 106 mm[Hg] Luz Hernandes [facility] 06-09-2024 09:09-0400 Heart rate 66 /min Damián Estrada [facility] 06-09-2024 09:09-0400 SaO2% (BldA) [Mass fraction] 98 % Steel Sean [facility] 06-09-2024 09:09-0400 Diastolic blood pressure 79 mm[Hg] Damián Estrada [facility] 06-09-2024 09:09-0400 Mean blood pressure 104 mm[Hg] Damián Estrada [facility] 06-09-2024 09:09-0400 Systolic blood pressure 154 mm[Hg] Steel Sean [facility] 06-09-2024 09:09-0400 Respiratory rate 16 /min Damián Sean [facility] 06-09-2024 08:55-0400 Diastolic blood pressure 86 mm[Hg] Damián Sean [facility] 06-09-2024 08:55-0400 Heart rate 74 /min Steel Sean [facility] 06-09-2024 08:55-0400 Respiratory rate 14 /min Steel Sean [facility] 06-09-2024 08:55-0400 SaO2% (BldA) [Mass fraction] 96 % Damián Sean [facility] 06-09-2024 08:55-0400 Systolic blood pressure 125 mm[Hg] Steel Sean [facility] 06-09-2024 07:47-0400 Heart rate 86 /min Damián Sean [facility] 06-09-2024 07:47-0400 SaO2% (BldA) [Mass fraction] 94 % Damián Estrada [facility] 06-09-2024 07:47-0400 Respiratory rate 16 /min Damián Estrada [facility] 06-09-2024 07:47-0400 Body temperature 98.24 [degF] Damián Estrada [facility] 06-09-2024 07:45-0400 Diastolic blood pressure 77 mm[Hg] Damián Estrada [facility] 06-09-2024 07:45-0400 Mean blood pressure 89 mm[Hg] Damián Estrada [facility] 06-09-2024 07:45-0400 Systolic blood pressure 112 mm[Hg] Damián Estrada [facility] 05-26-2024 07:45-0400 Heart rate 59 /min Damián Estrada [facility] 05-26-2024 07:45-0400 SaO2% (BldA) [Mass fraction] 97 % Damián Estrada [facility] 05-26-2024 07:44-0400 Body temperature 97.52 [degF] Damián Estrada [facility] 05-26-2024 07:44-0400 Diastolic blood pressure 80 mm[Hg] Damián Estrada [facility] 05-26-2024 07:44-0400 Mean blood pressure 93 mm[Hg] Damián Estrada [facility] 05-26-2024 07:44-0400 Systolic blood pressure 120 mm[Hg] Damián Estrada [facility] 05-26-2024 07:44-0400 Respiratory rate 16 /min Damián Estrada [facility] 04-10-2024 08:31-0400 Body height 177.8 cm MD Yury Lara Work Phone: [facility] 04-10-2024 08:31-0400 Body mass index (BMI) [Ratio] 21.8 kg/m2 MD Yury Lara Work Phone: [facility] 04-10-2024 08:31-0400 Body weight 68.94 kg MD Yury Lara Work Phone: [facility] 02-28-2024 15:25-0400 Diastolic blood pressure 85 mm[Hg] Damián Estrada [facility] 02-28-2024 15:25-0400 Heart rate 76 /min Damián Estrada [facility] 02-28-2024 15:25-0400 Mean blood pressure 97 mm[Hg] Damián Estrada [facility] 02-28-2024 15:25-0400 Respiratory rate 16 /min Damián Estrada [facility] 02-28-2024 15:25-0400 Systolic blood pressure 120 mm[Hg] Damián Estrada [facility] 01-23-2024 15:12-0400 Heart rate 58 /min Damián Estrada [facility] 01-23-2024 15:12-0400 SaO2% (BldA) [Mass fraction] 97 % Damián Estrada [facility] 01-23-2024 15:12-0400 Diastolic blood pressure 84 mm[Hg] Damián Estrada [facility] 01-23-2024 15:12-0400 Mean blood pressure 102 mm[Hg] Damián Estrada [facility] 01-23-2024 15:12-0400 Systolic blood pressure 139 mm[Hg] Steel Sean [facility] 01-23-2024 14:59-0400 Diastolic blood pressure 95 mm[Hg] Steel Sean [facility] 01-23-2024 14:59-0400 Heart rate 55 /min Damián Estrada [facility] 01-23-2024 14:59-0400 SaO2% (BldA) [Mass fraction] 100 % Damián Estrada [facility] 01-23-2024 14:59-0400 Systolic blood pressure 129 mm[Hg] Damián Estrada [facility] 01-23-2024 14:32-0400 Heart rate 56 /min Damián Estrada [facility] 01-23-2024 14:32-0400 SaO2% (BldA) [Mass fraction] 98 % Damián Estrada [facility] 01-23-2024 14:32-0400 Body temperature 97.52 [degF] Damián Estrada [facility] 01-23-2024 14:31-0400 Diastolic blood pressure 83 mm[Hg] Damián Estrada [facility] 01-23-2024 14:31-0400 Mean blood pressure 98 mm[Hg] Damián Estrada [facility] 01-23-2024 14:31-0400 Systolic blood pressure 126 mm[Hg] Damián Estrada [facility] 01-23-2024 14:30-0400 Respiratory rate 14 /min Damián Estrada [facility] 12-06-2023 10:29-0500 Respiratory rate 16 /min Steel Sean [facility] 10-18-2023 14:49-0500 Diastolic blood pressure 80 mm[Hg] Damián Sean [facility] 10-18-2023 14:49-0500 Heart rate 58 /min Damián Estrada [facility] 10-18-2023 14:49-0500 Mean blood pressure 89 mm[Hg] Damián Estrada [facility] 10-18-2023 14:49-0500 Respiratory rate 16 /min Damián Estrada [facility] 10-18-2023 14:49-0500 Systolic blood pressure 108 mm[Hg] Damián Estrada [facility] 08-14-2023 15:40-0400 Body height 177.8 cm Antwon Hastings Other [employer] Other 08-14-2023 15:40-0400 Body mass index (BMI) [Ratio] 22.24 kg/m2 Antwon Hastings Other [facility] Other 08-14-2023 15:40-0400 Body weight 70.31 kg Antwon Hastings Other [facility] Other 04-03-2023 15:40-0400 Body height 177.8 cm Antwon Hastings Other [facility] Other 04-03-2023 15:40-0400 Body mass index (BMI) [Ratio] 7.32 kg/m2 Antwon Hastings Other [facility] Other 04-03-2023 15:40-0400 Body weight 23.13 kg Antwon Hastings Other [facility] Other 02-27-2023 14:00-0400 Body height 177.8 cm Antwon Hastings Other [facility] Other 02-27-2023 14:00-0400 Body mass index (BMI) [Ratio] 21.66 kg/m2 Antwon Hastings Other [facility] Other 02-27-2023 14:00-0400 Body weight 68.49 kg Antwon Hastings Other [facility] Other 02-27-2023 14:00-0400 Diastolic blood pressure 80 mm[Hg] Antwon Hastings Other [facility] [employer] Other 02-27-2023 14:00-0400 Systolic blood pressure 128 mm[Hg] Antwon Hastings Other [facility] [employer] Other 02-14-2023 07:57-0400 Body temperature 97.5 [degF] MD Yury Lara Work Phone: [facility] 02-14-2023 07:57-0400 Diastolic blood pressure 85 mm[Hg] MD Yury Lara Work Phone: [facility] 02-14-2023 07:57-0400 Heart rate 89 /min MD Yury Lara Work Phone: [facility] 02-14-2023 07:57-0400 Respiratory rate 18 /min MD Yury Lara Work Phone: [facility] 02-14-2023 07:57-0400 SaO2% (BldA) [Mass fraction] 97 % MD Yury Lara Work Phone: [facility] 02-14-2023 07:57-0400 Systolic blood pressure 135 mm[Hg] MD Yury Lara Work Phone: [facility] 02-14-2023 06:00-0400 Body weight 75.9 kg MD Yury Lara Work Phone: [facility] 02-13-2023 08:32-0400 Inhaled oxygen flow rate 2 L/min MD Yury Lara Work Phone: [facility] 02-12-2023 07:33-0400 Body mass index (BMI) [Ratio] 22.4 kg/m2 MD Yury Lara Work Phone: [facility] 02-12-2023 07:00-0400 Body height 175.26 cm MD Yury Lara Work Phone: [facility] 01-11-2023 09:40-0400 Body height 177.8 cm Antwon Hastings Other [facility] Other 01-11-2023 09:40-0400 Body mass index (BMI) [Ratio] 20.37 kg/m2 Antwon Hastings Other [facility] Other 01-11-2023 09:40-0400 Body weight 64.41 kg Antwon Hastings Other [facility] Other 01-11-2023 09:40-0400 Diastolic blood pressure 90 mm[Hg] Antwon Hastings Other [facility] Other 01-11-2023 09:40-0400 Systolic blood pressure 128 mm[Hg] Antwon Hastings Other [facility] Other 12-07-2022 12:40-0500 Body height 177.8 cm Antwon Hastings Other [facility] Other 12-07-2022 12:40-0500 Body mass index (BMI) [Ratio] 20.37 kg/m2 Antwon Hastings Other [facility] Other 12-07-2022 12:40-0500 Body weight 64.41 kg Antwon Hastings Other [facility] Other 12-07-2022 12:40-0500 Respiratory rate 16 /min Antwon Hastings Other [facility] Other 08-01-2022 10:00-0400 Body height 177.8 cm Antwon Hastings Other [facility] Other 08-01-2022 10:00-0400 Body mass index (BMI) [Ratio] 20.37 kg/m2 Antwon Hastings Other [facility] Other 08-01-2022 10:00-0400 Body weight 64.41 kg Antwon Hastings Other [facility] Other 05-11-2022 11:40-0400 Body height 177.8 cm Antwon Hastings Other [facility] Other 05-11-2022 11:40-0400 Body mass index (BMI) [Ratio] 20.37 kg/m2 Antwon Hastings Other [facility] Other 05-11-2022 11:40-0400 Body weight 64.41 kg Antwon Hastings Other [facility] Other 03-16-2022 10:00-0400 Body height 177.8 cm Antwon Hastings Other [facility] Other 03-16-2022 10:00-0400 Body mass index (BMI) [Ratio] 20.43 kg/m2 Antwon Hastings Other [facility] Other 03-16-2022 10:00-0400 Body weight 64.59 kg Antwon Hastings Other [facility] Other 03-02-2022 15:59-0400 Body temperature 97.6 [degF] MD Yury Lara Work Phone: [facility] 03-02-2022 15:59-0400 Diastolic blood pressure 86 mm[Hg] MD Yury Lara Work Phone: [facility] 03-02-2022 15:59-0400 Heart rate 82 /min MD Yury Lara Work Phone: [facility] 03-02-2022 15:59-0400 Respiratory rate 16 /min MD Yury Lara Work Phone: [facility] 03-02-2022 15:59-0400 SaO2% (BldA) [Mass fraction] 95 % MD Yury Lara Work Phone: [facility] 03-02-2022 15:59-0400 Systolic blood pressure 144 mm[Hg] MD Yury Lara Work Phone: [facility] 03-02-2022 05:30-0400 Body weight 69 kg MD Yury Lara Work Phone: [facility] 03-01-2022 19:34-0400 Inhaled oxygen flow rate 2 L/min MD Yury Lara Work Phone: [facility] 03-01-2022 16:00-0400 Body height 175.26 cm MD Yury Lara Work Phone: [facility] 03-01-2022 09:37-0400 Body mass index (BMI) [Ratio] 22.4 kg/m2 MD Yury Lara Work Phone: [facility] 02-28-2022 12:21-0400 Diastolic blood pressure 102 mm[Hg] MD Yury Lara Work Phone: [facility] 02-28-2022 12:21-0400 Heart rate 60 /min MD Yury Lara Work Phone: [facility] 02-28-2022 12:21-0400 Respiratory rate 20 /min MD Yury Lara Work Phone: [facility] 02-28-2022 12:21-0400 SaO2% (BldA) [Mass fraction] 98 % MD Yury Lara Work Phone: [facility] 02-28-2022 12:21-0400 Systolic blood pressure 163 mm[Hg] MD Yury Lara Work Phone: [facility] 02-28-2022 11:16-0400 Body temperature 98 [degF] MD Yury Lara Work Phone: [facility] 02-28-2022 08:55-0400 Body height 175.26 cm MD Yury Lara Work Phone: [facility] 02-28-2022 08:55-0400 Body mass index (BMI) [Ratio] 21.2 kg/m2 MD Yury Lara Work Phone: [facility] 02-28-2022 08:55-0400 Body weight 65.31 kg MD Yury Lara Work Phone: [facility] 02-23-2022 09:20-0400 Body height 177.8 cm Antwon Hastings Other [employer] [facility] [employer] Other 02-23-2022 09:20-0400 Body mass index (BMI) [Ratio] 20.66 kg/m2 Antwon Hastings Other [employer] Other 02-23-2022 09:20-0400 Body weight 65.32 kg Antwon Hastings Other [employer] Other 02-08-2022 16:10-0400 Diastolic blood pressure 81 mm[Hg] MD Yury Lara Work Phone: [facility] 02-08-2022 16:10-0400 Heart rate 59 /min MD Yury Lara Work Phone: [facility] 02-08-2022 16:10-0400 Respiratory rate 16 /min MD Yury Lara Work Phone: [facility] 02-08-2022 16:10-0400 SaO2% (BldA) [Mass fraction] 100 % MD Yury Lara Work Phone: [facility] 02-08-2022 16:10-0400 Systolic blood pressure 132 mm[Hg] MD Yury Lara Work Phone: [facility] 02-08-2022 15:41-0400 Body height 175.26 cm MD Yury Lara Work Phone: [facility] 02-08-2022 15:41-0400 Body mass index (BMI) [Ratio] 21.4 kg/m2 MD Yury Lara Work Phone: [facility] 02-08-2022 15:41-0400 Body weight 66 kg MD Yury Lara Work Phone: [facility] 02-08-2022 12:36-0400 Body temperature 98.5 [degF] MD Yury Lara Work Phone: [facility] 01-26-2022 07:47-0400 Diastolic blood pressure 100 mm[Hg] MD Yury Lara Work Phone: [facility] 01-26-2022 07:47-0400 Heart rate 80 /min MD Yury Lara Work Phone: [facility] 01-26-2022 07:47-0400 Respiratory rate 16 /min MD Yury Lara Work Phone: [facility] 01-26-2022 07:47-0400 SaO2% (BldA) [Mass fraction] 98 % MD Yury Lara Work Phone: [facility] 01-26-2022 07:47-0400 Systolic blood pressure 147 mm[Hg] MD Yury Lara Work Phone: [facility] 01-26-2022 07:43-0400 Body height 175.26 cm MD Yury Lara Work Phone: [facility] 01-26-2022 07:43-0400 Body weight 63.5 kg MD Yury Lara Work Phone: [facility] Encounters Encounter Date Encounter Type Care Provider Facility Start: 11-12-2024 End: 11-12-2024 Bamboo denzel Berry DO Work Phone: [facility] Start: 11-12-2024 End: 11-12-2024 Bamboo flowsheet Rayne Berry DO Work Phone: [facility] Start: 11-12-2024 End: 11-12-2024 oscar Edouard ZAHLER Not Available Start: 11-12-2024 End: 11-12-2024 Office outpatient new 45 minutes Rayne eBrry DO Work Phone: [facility] Comment on above: Age-related nuclear cataract of both eyes (Primary Dx) Start: 09-16-2024 End: 09-16-2024 ambulatory Luz Hernandes Facility:[facility] Start: 09-16-2024 End: 09-16-2024 Patient encounter procedure Luz Hernandes [facility] Start: 09-02-2024 End: 09-02-2024 Patient encounter procedure Emirmatthew Mahi DO Work Phone: [facility] Comment on above: Cervical radiculopat hy (Primary Dx) Start: 09-02-2024 End: 09-02-2024 ambulatory DEVIKA CHAMPAGNE Not Available Start: 09-02-2024 End: 09-02-2024 Bamboo flowsheet Christranjaner Mahi DO Work Phone: [facility] Start: 09-02-2024 End: 09-02-2024 Bamboo flowsheet Ronaldohelio Zamanett DO Work Phone: [facility] Start: 08-05-2024 End: 08-05-2024 ambulatory Luz Hernandes Facility:[facility] Start: 08-05-2024 End: 08-05-2024 Patient encounter procedure Luz Hernandes [facility] Start: 07-15-2024 End: 07-15-2024 ambulatory Henrique DIOP Facility:[facility] Start: 07-15-2024 End: 07-15-2024 Patient encounter procedure Henrique DIOP [facility] Start: 06-25-2024 End: 06-25-2024 ambulatory Luz Hernandes Facility:[facility] Start: 06-25-2024 End: 06-25-2024 Pain Management Luz Hernandes [facility] Start: 06-09-2024 End: 06-09-2024 ambulatory Damián Estrada Facility:[facility] Start: 06-09-2024 End: 06-09-2024 Pain Management Damián Estrada [facility] Start: 05-26-2024 End: 05-26-2024 ambulatory Damián Estrada Facility:[facility] Start: 05-26-2024 End: 05-26-2024 Pain Management Damián Estrada [facility] Start: 05-19-2024 End: 05-19-2024 ambulatory [facility] Start: 04-10-2024 End: 04-10-2024 Patient encounter procedure MD Yury Lara Work Phone: [facility] Neurosurgery Work Phone: Start: 04-10-2024 End: 04-10-2024 ambulatory MD Yury Lara Work Phone: [facility] Work Phone: Start: 02-28-2024 End: 02-28-2024 ambulatory DO Damián Estrada Facility:[facility] Start: 02-28-2024 End: 02-28-2024 Pain Management Damián Estrada [facility] Start: 01-23-2024 End: 01-23-2024 ambulatory DO Damián Estrada Facility:[facility] Start: 01-23-2024 End: 01-23-2024 Pain Management Damián Estrada [facility] Start: 12-20-2023 End: 12-20-2023 ambulatory [facility] Start: 12-06-2023 End: 12-06-2023 ambulatory Damián Estrada Facility:[facility] Start: 12-06-2023 End: 12-06-2023 Pain Management Damián Estrada [facility] Start: 12-05-2023 End: 12-07-2023 Pre-admission assessment Damián Estrada [facility] Start: 10-18-2023 End: 11-30-2023 Pre-admission assessment Damián Estrada [facility] Start: 10-18-2023 End: 10-18-2023 Pain Management Steel SnowAnya Estrada [facility] Start: 10-12-2023 End: 10-12-2023 ambulatory Antwon Hastings Other [employer] [facility] [employer] Other Start: 10-12-2023 Telephone encounter Antwon Hastings [facility] Neurosurgery Start: 08-29-2023 End: 08-29-2023 ambulatory Antwon Hastings Other [employer] Other Start: 08-29-2023 Telephone encounter Antwon Hastings [facility] Data Entry Specialist Start: 08-14-2023 End: 08-14-2023 Patient encounter procedure MD Yury Lara Work Phone: [facility] Work Phone: Start: 08-14-2023 End: 08-14-2023 ambulatory MD Yury Lara Work Phone: [facility] Work Phone: Start: 08-14-2023 Office outpatient vi sit 25 minutes Antwon Hastings [facility] Neurosurgery Start: 05-22-2023 End: 05-22-2023 Patient encounter procedure MD Yury Lara Work Phone: [facility] Work Phone: Start: 05-22-2023 End: 05-22-2023 ambulatory Antwon Hastings Facility:[facility] Start: 04-23-2023 End: 04-23-2023 ambulatory Antwon Hastings Other [employer] Other Start: 04-23-2023 Telephone encounter Antwon Hastings [facility] Neurosurgery Start: 04-16-2023 End: 04-16-2023 ambulatory Antwon Hastings Other [employer] Other Start: 04-16-2023 Telephone encounter Antwon Hastings [facility] Neurosurgery Start: 04-03-2023 End: 04-03-2023 Patient encounter procedure MD Yury Lara Work Phone: [facility] Work Phone: Start: 04-03-2023 End: 04-03-2023 ambulatory MD Yury Lara Work Phone: [facility] Work Phone: Start: 04-03-2023 Office outpatient vi sit 15 minutes Antwon Hastings [facility] Neurosurgery Start: 03-27-2023 End: 03-27-2023 ambulatory Antwon Hastings Other [facility] [employer] Other Start: 03-27-2023 Telephone encounter Antwon Hastings [facility] Neurosurgery Start: 03-05-2023 End: 03-05-2023 ambulatory Antwon Hastings Other [facility] [employer] Other Start: 03-05-2023 Telephone encounter Antwon Hastings [facility] Neurosurgery Start: 02-27-2023 End: 02-27-2023 ambulatory Antwon Hastings Other [facility] [employer] Other Start: 02-27-2023 Postop follow up vis it related to original px Antwon Venkata [facility] Neurosurgery Start: 02-26-2023 End: 02-26-2023 ambulatory Antwon Hastings Other [facility] [employer] Other Start: 02-26-2023 Telephone encounter Antwon Hastings [facility] Start: 02-24-2023 End: 02-24-2023 ambulatory Antwon Hastings Other [facility] [employer] Other Start: 02-24-2023 Telephone encounter Antwon Hastings [facility] Start: 02-23-2023 End: 02-23-2023 ambulatory Antwon Hastings Other [facility] [employer] Other Start: 02-23-2023 Telephone encounter Antwon Hastings [facility] Start: 02-17-2023 End: 02-17-[address] YURY LARA . Facility: Start: 02-12-2023 End: 02-14-2023 Evaluation and management of inpatient MD Yury Lara Work Phone: [facility]-[address] [place] [address] Work Phone: Start: 01-29-2023 End: 01-29-2023 ambulatory MD Yury Lara Work Phone: [facility] Work Phone: Start: 01-29-2023 End: 01-29-2023 Patient encounter procedure MD Yury Lara Work Phone: [facility]-Pre-Surgical Testing Work Phone: Start: 01-11-2023 End: 01-11-2023 ambulatory Antwon Hastings Other [facility] [employer] Other Start: 01-11-2023 Office outpatient vi sit 40 minutes Antwon Hastings [facility] Start: 12-25-2022 End: 12-25-2022 ambulatory MD Yury Lara Work Phone: [facility] Work Phone: Start: 12-25-2022 End: 12-25-2022 Patient encounter procedure MD Yury Lara Work Phone: [facility] [place] Work Phone: Start: 12-07-2022 End: 12-07-2022 ambulatory Antwon Venkata Other [employer] Other Start: 12-07-2022 Office outpatient vi sit 15 minutes Antwon Hastings [facility] Start: 11-13-2022 End: 11-13-[address] YURY LARA . Facility:[facility] Start: 10-23-2022 End: 10-23-2022 ambulatory MD Yury Lara Work Phone: [facility] Work Phone: Start: 10-23-2022 End: 10-23-2022 Patient encounter procedure MD Yury Lara Work Phone: [facility] [place] Work Phone: Start: 09-26-[address] YURY LARA . Facili ty:[facility] Start: 08-01-2022 End: 08-01-2022 ambulatory Antwon Hastings Other [employer] Other Start: 08-01-2022 Office outpatient vi sit 15 minutes Antwon Hastings [facility] Start: 07-13-2022 End: 07-14-[address] YURY LARA . Facility:[facility] Start: 07-06-2022 End: 07-07-[address] YURY LARA . Facility:[facility] Start: 06-09-2022 End: 06-10-[address] YURY LARA . Facility:[facility] Start: 05-11-2022 End: 05-11-2022 ambulatory Antwon Hastings Other [employer] Other Start: 05-11-2022 Postop follow up vis it related to original px Antwon Hastings [facility] Start: 05-11-2022 End: 05-11-2022 Patient encounter procedure MD Yury Lara Work Phone: [facility] [place] Start: 04-15-2022 End: 04-15-[address] YURY LARA . Facility:[facility] Start: 03-23-2022 End: 03-23-2022 ambulatory Antwon Hastings Other [employer] Other Start: 03-23-2022 Telephone encounter Antwon Hastings [facility] Neurosurgery Start: 03-16-2022 End: 03-16-2022 ambulatory Antwonmaria l Hastings Other [employer] Other Start: 03-16-2022 Postop follow up vis it related to original px Antwon Hastings [facility]surgery Start: 03-15-2022 End: 03-16-[address] ANTWON HASTINGS Facility:[facility] Start: 03-07-2022 End: 03-07-2022 ambulatory Lele Fong Other [employer] Other Start: 03-07-2022 Telephone encounter Lele Quiñones [facility] Neurosurgery Start: 03-02-[address] Rigo Hughes Fac ility:[facility] Start: 03-01-2022 Admission to same da y surgery center Antwonmaria l Hastings [facility] Start: 03-01-2022 End: 03-01-2022 ambulatory Antwonmaria l Hastings Other [employer] Other Start: 02-28-2022 End: 03-02-2022 Evaluation and management of inpatient MD Yury Lara Work Phone: [facility] Start: 02-28-[address] Rigo Hughes Facility:[id number] Start: 02-23-2022 End: 02-23-2022 ambulatory Antwon Hastings Other [employer] Other Start: 02-23-2022 Office outpatient ne w 60 minutes Antwon Hastings [facility]surgery Start: 02-08-2022 End: 02-08-2022 Admission to same day surgery center MD Yury Lara Work Phone: [facility] [place] Start: 02-06-2022 End: 02-06-2022 Patient encounter procedure MD Yury Lara Work Phone: [facility]-Pre-Surgical Testing Start: 01-26-2022 End: 01-26-2022 Patient encounter procedure MD Yury Lara Work Phone: [facility] [place] Start: 01-21-2019 End: 01-22-2019 Patient encounter procedure PROVIDER UNKNOWN Facility:[facility] Procedures Date Procedure Procedure Detail Performing Clinician Start: 11-12-2024 Oph bmtry prtl coher intrfrmtry io lens pwr becka Berry DO Work Phone: Start: 09-02-2024 End: 09-02-2024 Needle emg ea extremty w/paraspinl area complete Devika Champagne DO Work Phone: Start: 06-09-2024 Epidural injection o f thoracic spine using fluoroscopic guidance Luz Hernandes Comment on above: 10% relief Start: 04-10-2024 X-ray of cervical spine MD Yury Lara Work Phone: Start: 01-23-2024 Epidural injection o f thoracic spine using fluoroscopic guidance Damián Estrada Comment on above: T2/3 70% relief Start: 08-14-2023 X-ray of cervical spine MD Yury Lara Work Phone: Start: 05-22-2023 X-ray of cervical spine MD Yury Lara Work Phone: Start: 04-03-2023 X-ray of cervical spine MD Yury Lara Work Phone: Start: 02-12-2023 X-ray of cervical spine MD Yury Lara Work Phone: Start: 12-25-2022 MRI of cervical spin e with contrast MD Yury Lara Work Phone: Start: 10-23-2022 X-ray of cervical spine MD Yury Lara Work Phone: Start: 06-09-[address] ANTWON ESPINOZA Comment on above: Performed By: #### I SAMEER, PSASC, VITB12 #### [facility] [address] [place] [address] Dr. Edilson Mortensen Start: 05-11-2022 X-ray of cervical spine MD Yury Lara Work Phone: Start: 03-01-2022 Decompression of cer vical spine MD Yury Lara Work Phone: Start: 03-01-2022 X-ray of cervical spine MD Yury Lara Work Phone: Start: 02-28-2022 SARS Antigen (LFIA) MD Yury Lara Work Phone: Start: 02-28-2022 Plain chest X-ray MD Cooley Work Phone: Start: 02-08-2022 OR CAT/MRI W/ IV SED ATION (Not Applicable) MD Yury Lara Work Phone: Start: 02-08-2022 MRI of cervical spin e with contrast MD Yury Lara Work Phone: Start: 02-06-2022 SARS Antigen (LFIA) MD Yury Lara Work Phone: Start: 01-21-2019 Cardiac catheter (ph ysical object) Damián Estrada Comment on above: Dr. Edwards Arthroplasty of shoulder Anselmo DIOP Bone structure of cl avicle (body structure) Damián Estrada Cervical laminectomy Agatha Estrada Closed fracture of clavicle (disorder) Henrique DIOP Plan of Treatment Date Care Activity Detail Author Start: 11-12-2024 End: 11-12-2024 Patient encounter procedure 11/12/2024 10:45 AM EST Office Visit [facility] [address] [place] [address] Rayne Berry, DO [address] [place] [address] [facility] Start: 09-02-2024 End: 09-02-2024 Patient encounter procedure 09/02/2024 4:00 PM EST Procedure Visit [facility] [address] [place] [address] Devika Champagne, DO [address] [place] [address] Arrived [facility] Comment on above: Arrived Start: 06-29-2024 Influenza vaccination Influenza Vacc ine (#1) [facility] Start: 04-10-2024 Patient referral [facility] Work Phone: Start: 02-14-2023 [facility] Start: 02-12-2023 Fusion of 2 or more Cervical Vertebral Joints with Autologous Tissue Substitute, Posterior Approach, Posterior Column, Open Approach Fusion of 2 or more Cervical Vertebral Joints with Autologous Tissue Substitute, Posterior Approach, Posterior Column, Open Approach [facility] Start: 02-12-2023 Fusion of Cervicotho racic Vertebral Joint with Autologous Tissue Substitute, Posterior Approach, Posterior Column, Open Approach Fusion of Cervicothoracic Vertebral Joint with Autologous Tissue Substitute, Posterior Approach, Posterior Column, Open Approach [facility] Start: 02-12-2023 Fusion of Thoracic Vertebral Joint with Autologous Tissue Substitute, Posterior Approach, Posterior Column, Open Approach Fusion of Thoracic Vertebral Joint with Autologous Tissue Substitute, Posterior Approach, Posterior Column, Open Approach [facility] Start: 02-12-2023 Removal of Internal Fixation Device from Cervical Vertebral Joint, Open Approach Removal of Internal Fixation Device from Cervical Vertebral Joint, Open Approach [facility] Start: 10-23-2022 X-ray of cervical spine XR cer v spine AP/LAT/FLX/EXT [facility] Start: 10-23-2022 XR Cervical spine 4 Views [facility] Start: 03-01-2022 X-ray of cervical spine XR cervical spine 2V [facility] Start: 02-28-2022 Fusion of 2 or more Cervical Vertebral Joints with Synthetic Substitute, Posterior Approach, Posterior Column, Open Approach [facility] Start: 02-28-2022 Introduction of Recombinant Bone Morphogenetic Protein into Joints, Open Approach [facility] Start: 02-08-2022 OR CAT/MRI W/ IV SED ATION (Not Applicable) OR CAT/MRI W/ IV SEDATION (Not Applicable) [facility] Start: 02-08-2022 MRI of cervical spin e with contrast MR cervical spine wo/w con [facility] Start: 1960 Screening for malign ant neoplasm of colon [facility] Patient Education Moderate and D eep Sedation in Adults General Anesthesia (DC) [facility] Work Phone: Patient referral [facility] Work Phone: Immunizations Immunization Date Immunization Notes Care Provider [facility] 08-25-2022 influenza virus vaccine, unspecified formulation Devika Champagne DO Work Phone: [facility] 11-09-2021 COVID-19 mRNA, Comirnaty (Pfizer) MD Yury Lara Work Phone: [facility] 02-28-2021 COVID-19 mRNA, Comirnaty (Pfizer) MD Yury Lara Work Phone: [facility] 02-07-2021 COVID-19 mRNA, Comirnaty (Pfizer) MD Yury Lara Work Phone: [facility] 07-31-2019 influenza virus vaccine, unspecified formulation Damián Estrada [facility] Payers Date Payer Category Payer Self-pay [id number] 2024 Medicaid [employer] MEDICARE A DVANTAGE [id number] 2024 Medicare [id number] 2024 Medicare MEDICARE [id number] 2023 Medicare [id number] 2023 Self-pay [id number] 2023 Private Health Insurance [employer] [id number] 1962 Unknown [id number] ..840.1.563921.3.579.2. 647 1962 Unknown [id number] 2.16.840.1.642402.3.579.2. 356 1962 Unknown [id number] 2.16.840.1.422746.3.579.2. 356 1962 Unknown [id number] 2.16.840.1.927136.3.579.2. 593 1962 Unknown [id number] 2.16.840.1.914943.3.579.2. 593 1962 Unknown [id number] 2.16.840.1.746847.3.579.2. 593 1962 Unknown [id number] 2.16.840.1.816073.3.579.2. 593 1962 Unknown [id number] 2.16.840.1.317006.3.579.2. 593 1962 Unknown [id number] 2.16.840.1.388465.3.579.2. 593 1962 Unknown [id number] 2.16.840.1.509894.3.579.2. 593 1962 Unknown [id number] 2.16.840.1.573109.3.579.2. 593 1962 Unknown [id number] 2.16.840.1.885285.3.579.2. 1259 1962 Unknown [id number] 2.16.840.1.161250.3.579.2. 1259 1962 Unknown [id number] 2.16.840.1.517068.3.579.2. 727 1962 Unknown [id number] 2.16.840.1.308002.3.579.2. 727 1962 Unknown [id number] 2.16.840.1.864257.3.579.2. 727 1962 Unknown [id number] 2.16.840.1.025838.3.579.2. 727 1962 Unknown [id number] 2.16.840.1.467369.3.579.2. 727 1962 Unknown [id number] 2.16.840.1.025009.3.579.2. 727 1962 Unknown [id number] 2.16.840.1.697115.3.579.2. 727 1962 Unknown [id number] 2.16.840.1.532996.3.579.2. 727 1962 Unknown [id number] 2.16.840.1.488783.3.579.2. 727 1959 Unknown [id number] 1959 Unknown [id number] 2.16.840.1.859512.19 Unknown Unknown [id number] 2.16.840.1.495965.3.579.2. 531 Unknown [id number] 2.16.840.1.422136.3.579.2. 531 Unknown [id number] 2.16.840.1.004819.3.579.2. 531 Social History Date Type Detail Facility Tobacco smoking status [facility] Unknown if ever smoked [facility] Work Phone: Start: 1960 Sex Assigned At Male F [facility] Start: 02-08-2022 End: 11-12-2024 Tobacco smoking status SDIS Ex-smoker (finding) [facility] Start: 02-28-2022 Tobacco smoking status SDIS Never smoked tobacco (finding) [facility] Start: 11-12-2024 Sex Assigned At F [facility] Tobacco smoking status Never [facility] Tobacco smoking status SDIS Tobacco smoking consumption unknown [facility] Start: 1960 Sex assigned at Not on file [facility] History of tobacco use Current smoker [facility] History of tobacco use Cigarette Smoker [facility] Start: 11-12-2024 History of Social function [facility] Medical Equipment Procedure Code Equipment Code Equipment Origin al Text Equipment Identifier Dates Decompression, spine, cervical, posterior approach CANCELLOUS 30CC CRUSHED FDA Start: 03-01-2022 Decompression, spine, cervical, posterior approach Bone-screw internal spinal fixation system, non-sterile ()[id number] FDA Start: 03-01-2022 Decompression, spine, cervical, posterior approach Bone-screw internal spinal fixation system, non-sterile ()[id number] FDA Start: 03-01-2022 Decompression, spine, cervical, posterior approach Bone-screw internal spinal fixation system, non-sterile ()[id number] FDA Start: 03-01-2022 Decompression, spine, cervical, posterior approach Bone-screw internal spinal fixation system, non-sterile ()[id number] FDA Start: 03-01-2022 Decompression, spine, cervical, posterior approach Spinal fusion graft kit ()[id number] FDA Start: 03-01-2022 Decompression, spine, cervical, posterior approach Bone-screw internal spinal fixation system, non-sterile ()[id number] FDA Start: 03-01-2022 Decompression, spine, cervical, posterior approach Bone-screw internal spinal fixation system, non-sterile ()[id number] FDA Start: 03-01-2022 Decompression, spine, cervical, posterior approach Bone-screw internal spinal fixation system, non-sterile ()[id number] FDA Start: 03-01-2022 Decompression, spine, cervical, posterior approach Bone-screw internal spinal fixation system, non-sterile ()[id number] FDA Start: 03-01-2022 Decompression, spine, cervical, posterior approach Bone-screw internal spinal fixation system, non-sterile ()[id number] FDA Start: 03-01-2022 Decompression, spine, cervical, posterior approach Bone-screw internal spinal fixation system, non-sterile ()[id number] FDA Start: 03-01-2022 Decompression, spine, cervical, posterior [...] approach Bone-screw internal spinal fixation system, non-sterile ()[id number] FDA Start: 02-12-2023 Decompression, spine, cervical, posterior approach Spinal fusion graft kit ([id number] FDA Start: 02-12-2023 Decompression, spine, cervical, posterior approach Bone-screw internal spinal fixation system, non-sterile ()[id number] FDA Start: 02-12-2023 Decompression, spine, cervical, posterior approach Bone-screw internal spinal fixation system, non-sterile ()[id number] FDA Start: 02-12-2023 Decompression, spine, cervical, posterior [...] /State Functional Status Date Assessment Result Facility 09-16-2024 Functional Status N/A [facility] 08-05-2024 Functional Status N/A [facility] 07-15-2024 Functional Status N/A [facility] 06-25-2024 Functional Status N/A [facility] 06-09-2024 Functional Status N/A [facility] 05-26-2024 Functional Status N/A [facility] 02-28-2024 Functional Status N/A [facility] 01-23-2024 Functional Status N/A [facility] 12-06-2023 Functional Status N/A [facility] 10-18-2023 Functional Status N/A [facility] 02-14-2023 Functional status Patient at Baseline [facility] Work Phone: 03-02-2022 Functional status Patient at Baseline [facility] Work Phone: 02-28-2022 Functional status Functional Status Comme nt [facility] Work Phone: Mental Status Date Assessment Result Facility 02-14-2023 Cognitive function Cognitive Sta tus Patient at Baseline [facility] Work Phone: 03-02-2022 Cognitive function Cognitive Sta tus Patient at Baseline [facility] Work Phone: Clinical Notes 02-23-2022 to 11-12-2024 Rayne Berry DO - 11/12/2024 10:45 AM EST Note Date & Type Note Facility 11-12-2024 History of Presen t illness Narrative Images from the original note were not included. Subjective Patient ID: Mary Aburto is a 64 y.o. male. Chief Complaint Cataract HPI Cataract In both eyes. Associated symptoms include blurred vision, glare, starburst and a need for brighter lights. Severity is severe. Onset was gradual. Duration of years. Frequency is constant. Context: distance vision, mid-range vision and near vision. Affected activities include reading, night driving, watching TV and daily activities. Treatments tried include artificial tears and glasses. Response to treatment was no improvement. Comments Pt presents for cataract evaluation referred by dr. Castro. Pt states he feels like he is looking through wax paper, cloudy, and hazy. Pt uses progressive glasses they are about 2yrs old. No latex No Pacemakers Last edited by Rayne Berry DO on 11/12/2024 11:53 AM. Current Outpatient Medications (Ophthalmic Agents) Medication Sig Dispense Refill Tfdleaddwpn-Thhmuhho-Jdxxnykat 1-0.5-0.075 % solution Administer 1 drop into affected eye(s) in the morning and 1 drop at noon and 1 drop in the evening and 1 drop before bedtime. 10 mL 1 Dsumyvwjqrw-Gqarcgpe-Fxmtgzhdm 1-0.5-0.075 % solution Administer 1 drop into affected eye(s) in the morning and 1 drop at noon and 1 drop in the evening and 1 drop before bedtime. 10 mL 1 No current facility-administered medications for this visit. (Ophthalmic Agents) Current Outpatient Medications (Other) Medication Sig Dispense Refill amLODIPine-atorvastatin (Caduet) 2.5-40 MG tablet Take 1 tablet by mouth Daily aspirin 81 MG EC tablet Take 81 mg by mouth Daily levothyroxine (Synthroid, Levoxyl) 75 MCG tablet Take by mouth Daily before meals metoprolol succinate XL (Toprol-XL) 25 MG 24 hr tablet Take by mouth Do not crush or chew. oxaprozin (Daypro) 600 MG tablet Take 1,200 mg by mouth Daily oxyCODONE-acetaminophen (Percocet) 5-325 MG tablet phenytoin ER (Dilantin) 100 MG capsule Take 100 mg by mouth in the morning and 100 mg in the evening and 100 mg before bedtime. pregabalin (Lyrica) 200 MG capsule Take 200 mg by mouth in the morning and 200 mg before bedtime. traZODone (Desyrel) 100 MG tablet Take 100 mg by mouth at bedtime No current facility-administered medications for this visit. (Other) Past Medical History: Diagnosis Date Hypertension ([facility]) Allergies Allergen Reactions Penicillins Sulfa Antibiotics Review of Systems Constitutional: Negative. HENT: Negative. Eyes: Negative. Respiratory: Negative. Cardiovascular: Negative. Gastrointestinal: Negative. Genitourinary: Negative. Musculoskeletal: Negative. Skin: Negative. Neurological: Negative. Psychiatric/Behavioral: Negative. Hematological: Negative. Endocrine: Negative. Allergic/Immunologic: Negative. Objective Base Eye Exam Visual Acuity (Snellen - Linear) Right Left Dist cc 20/200 20/200 Correction: Glasses Tonometry (Applanation, 11:53 AM) Right Left Pressure 16 16 Pupils Pupils Right PERRL Left PERRL Visual Saucedo Left Right Full Full Extraocular Movement Right Left Full, Ortho Full, Ortho Neuro/Psych Oriented x3: Yes Dilation Both eyes: 1.0% Mydriacyl @ 11:15 AM Additional Tests Keratometry K1 [place] K2 [place] [facility] Right 41.25 130 42.00 4 Left 41.25 53 42.00 143 Slit Lamp and Fundus Exam External Exam Right Left External Rosacea Rosacea Slit Lamp Exam Right Left Lids/Lashes Blepharitis, Dermatochalasis - upper lid Blepharitis, Dermatochalasis - upper lid Conjunctiva/Sclera White and quiet White and quiet Cornea Decreased tear film Decreased tear film Anterior Chamber Deep and quiet Deep and quiet Iris Round and reactive Round and reactive Lens 3+ Nuclear sclerosis, 2+ Posterior subcapsular cataract, Vacuoles 3+ Nuclear sclerosis, 2+ Posterior subcapsular cataract, Vacuoles Anterior Vitreous Normal Normal Fundus Exam Right Left Disc Normal Normal Macula Normal Normal Vessels Normal Normal Periphery Normal Normal Refraction Wearing Rx Sphere Cylinder [facility] Add Right +2.00 -0.25 125 +3.00 Left +2.25 -0.25 153 +3.00 Age: 4yrs Type: prog Manifest Refraction Sphere Cylinder [place] [facility] Right +0.25 -0.75 111 Left +2.50 -1.25 084 Final Rx Sphere Cylinder [place] Dist [place] Right +0.25 -0.75 115 20/80 Left +2.50 -1.25 085 20/100 Expiration Date: 11/12/2025 Assessment/Plan Age-related nuclear cataract of both eyes - Visually Significant Cataract, OU: I discussed the risks, benefits, alternatives, and expectations of cataract surgery. A complete ophthalmic exam was performed and it was determined that the cataracts were a primary source of vision decline, affecting activities of daily living, necessitating removal. Limited vision post-surgery may occur with pre-existing conditions affecting other areas of the eye or the brain was explained and the patient displayed an understanding. The overall objective is to improve ADLs, not eliminate glasses or restore vision to 20/20. Tests were reviewed - the different lens options were explained including the qcj-oq-qfmhvq fees for any upgrades. Intraocular lens (IOL) selection may be altered either prior to or during the procedure based on the doctor's discretion including reverting to a traditional intraocular lens (IOL). They understood that there will exist the potential of glasses prescription need post surgery for near, distance or possibly both. The patient stated a full understanding and a desire to proceed with the procedure. The patient received cataract measurements and had any additional questions answered. - A complete exam was performed including a physical exam: General: AAOx3 and NAD, Lungs: Clear, Heart: RRR, Abdomen: S/NT/ND, Extremities: no pitting edema. - Coordination of care will be shared with Dr. Bar. Cataract Surgery for OS will take place - 11/24 and OD - 12/08. documented in this encounter [facility] 09-16-2024 Evaluation + Plan note Extrac carlos from: Title:Pain Managment Follow up Author:Luz Wang Date:09/16/24 Impression and Plan Patient is a 64-year-old [...] would recommend he reach out to Dr. Hastings as he states that he did not hear from them. He does not want a make any changes and he does not want to do anything differently with our services. He is going to follow-up in 3 months for medication management. RANDI score: 42 %. [facility] 11-19-2024 NoteConsultation Note Patient: MARY ABURTO Age: 64 years [...] but he has not yet seen Dr. Hastings. He states that he has not heard [...] day(s), # 60 cap(s), Refills(s) 2, Pharmacy: [facility]/pharmacy #[id number], 172.7, cm, 08/05/24 8:27:00 EDT, Height/Length Dosing, 65.9, kg, 08/05/24 8:27:00 EDT, Weight Dosing pregabalin 150 mg Cap: 150 mg = 1 cap(s), Oral, BID, # 60 cap(s), Refills(s) 1, Pharmacy: [facility]/pharmacy #[id number], 178, cm, 06/25/24 8:51:00 EDT, Height/Length [...] malignant neoplasm of colon / SNOMED CT 993158610 / Confirmed Aneurysm of ascending aorta / SNOMED CT 3152553942 / Confirmed Cerebrovascular accident / SNOMED CT 975248640 / Confirmed Cervical radiculopathy / SNOMED CT 398253623 / Confirmed Diverticula of intestine / SNOMED CT 598358409 / Confirmed Dyslipidemia / SNOMED CT 4860741849 / Confirmed Essential hypertension / SNOMED CT 60697940 / Confirmed Hemiplegia of right nondominant side / SNOMED CT 7640603644 / Confirmed Myocardial infarction / SNOMED CT 21682759 / Confirmed History of pulmonary embolism / SNOMED CT 553644051 / Confirmed Seborrheic keratoses / SNOMED CT 4640945241 / Confirmed Objective Vital Signs 09/16/2024 8:41 [...] than right hand 4+/5 Integumentary: Warm, Dry, [place]. Neurologic: Alert, Oriented. Psychiatric: Cooperative, Appropriate mood [...] past medical history significant for previous fusion, cervicalstenosis and cervical neuritis. Previous epidural did not give him any long-term relief. At this time, he feels that the 200 mg twice a day helps him. He tolerates it well. In regards to his EMG we obtain the results. We reviewed this. We also reviewed his previous MRI. Iwould recommend he reach out to Dr. Hastings as he states that he did not hear from them. He does not want a make any changes and he does not want to do anything differently with our services. He is going to follow-up in 3 months for medication management. RANDI score: 42 %.[facility] CenterComment on above:Result Comment: Electronically Signed By: Luz Hernandes PA-C\.br\Date and Time Signed: 09/16/24 09:07 [id number] History of Present illness Narrative* TRACIE Haro - 09/02/2024 4:00 PM EST Images from the original note were not included. Reason for Appointment: EMG Patient: Mary Aburto : 1960 EMG Computer: NextUser Referring Physician: Dr. Antwon Hastings EMG: PRIYA cut out press operator: Louis Alas RT(R) Office Location: [place] Reason for EMG: c/o numbness/tingling in right hand/arm especially in 4th & 5th digits, neck pain that radiates down right arm. Hx of surgery to neck & right shoulder. No hx of DM. Not on blood thinners. Comments: Procedure was explained to the patient & who expressed understanding. Patient appeared to have tolerated the test well despite some discomfort due to the nature of the test. [facility] [id number] Evaluation + Plan note Extracted from: Title:Pain Managment Follow up Author:Luz Wang Date:08/05/24 Impression and Plan Patient is a 64-year-old [...] then he is going to see Dr. Hastings. I would recommend he follow through with both of these things. We will see patient back in 6 to 8 weeks to see how he is doing with the new dose of the medication. He will call us in the interim should he require anything from our services. RANDI score: 56%. Future Appointments Appointment Date:09/16/2024 08:30:00 AM Scheduled Provider:Luz Hernandes PA-C Location[facility] Appointment Type:Pain Management - Follow Up (FT) [facility] 10-08-2024 NoteConsultation Note Patient: MARY ABURTO Age: 64 years [...] then he is going to see Dr. Hastings after. Patient does use oxycodone given to him by his PCP. He feels that things are not perfect but they are improved with the Lyrica. He tolerates this well.No side effects. He takes as prescribed. Health Status Allergies: Allergic Reactions (Selected) Severity Not Documented Penicillin- Rash. Sulfa drugs- Rash., Allergies (2) Active Severity Reaction sulfa drugs Rash penicillin Rash Current medications: (Selected) Prescriptions Prescribed pregabalin 150 mg Cap: 150 mg = 1 cap(s), Oral, BID, # 60 cap(s), Refills(s) 1, Pharmacy: [facility]/pharmacy #[id number], 178, cm, 06/25/24 8:51:00 EDT, Height/Length Dosing, 65.8, kg, 06/25/24 8:51:00 EDT, Weight Dosing pregabalin 50 mg Cap: 50 mg = 1 cap(s), Oral, BID, X 20 day(s), # 40 cap(s), Refills(s) 0, Pharmacy: [facility]/pharmacy #[id number], 172.7, cm, 08/05/24 8:27:00 EDT, Height/Length [...] malignant neoplasm of colon / SNOMED CT 881836388 / Confirmed Aneurysm of ascending aorta / SNOMED CT 1952831138 / Confirmed Cerebrovascular accident / SNOMED CT 331078469 / Confirmed Cervical radiculopathy / SNOMED CT 640487260 / Confirmed Diverticula of intestine / SNOMED CT 384281148 / Confirmed Dyslipidemia / SNOMED CT 6977831872 / Confirmed Essential hypertension / SNOMED CT 54431633 / Confirmed Hemiplegia of right nondominant side / SNOMED CT 1829580446 / Confirmed Myocardial infarction / SNOMED CT 94352902 / Confirmed History of pulmonary embolism / SNOMED CT 424531270 / Confirmed Seborrheic keratoses / SNOMED CT 7138845382 / Confirmed Objective Vital Signs 08/05/2024 8:19 [...] than right hand 4+/5 Integumentary: Warm, Dry, [place]. Neurologic: Alert, Oriented. Psychiatric: Cooperative, Appropriate mood & affect. 14 point review of systems was negative unless otherwise noted. Results Review Cervical MRI scan report and films once again reviewed Impression and Plan Patient is a 64-year-old male with a past medical history significant for previous fusion, cervicalstenosis and cervical neuritis. Previous epidural did not [...] then he is going to see Dr. Hastings. I would recommend he follow through with both of these things. We will see patient back in 6 to 8 weeks to see how he is doing with the new dose of the medication. He will call us in the interim should he require anything from our services. RANDI score: 56%.[facility] CenterComment on above:Result Comment: Electronically Signed By: Luz Hernandes PA-C\.mansoor\Date and Time Signed: 08/05/24 08:38 [id number] NoteGeneral Surgery Office/Clinic Note Chief Complaint consultation for nevus HPI Staff 64 year old male presents on consultation from Dr. Lara for nevus on back. Reports multiple scattered skin lesions over back. Denies soreness, bleeding, drainage or itching. History of Present Illness 64 yo male with h/o CAD, MS, htn, hyperlipidemia, hypothyroidism, CVA, cervical radiculopathy, referred for changing back lesions, some increase in size per patient's ; no ulceration or bleeding,no pain or itching; no h/o skin cancer; on baby asa daily, no NSAID use; no tobacco, uses Marijuanadaily. Review of Systems PHQ Score Initial Depression Screen Score: 0 SCORE ROS - Provider Constitutional: no fever, no sweats, no weight loss. Eyes: no glasses, no blurred vision, no visual loss. ENMT: no dentures, no hoarseness, no swallowing difficulties, no hearing loss, no ear infection(s),no nose bleeds. Cardiovascular: normal blood pressure, no [...] Tobacco Use:. Never Smokeless Tobacco Use:. Cigarettes, 2per day. Started age 13.0 Years. Stopped age 56 Years., 07/15/2024 Family History Diabetes mellitus type 2: Mother. Primary malignant neoplasm of lung: Father and Sister. Stroke: Mother. Immunizations Vaccine Date Status SARS-CoV-2 (COVID-19) mRNA BNT-162b2 vax 11/09/2021 Recorded SARS-CoV-2 (COVID-19) mRNA BNT-162b2 vax 02/28/2021 Recorded SARS-CoV-2 (COVID-19) mRNA BNT-162b2 vax 02/07/2021 Recorded influenza virus vaccine, inactivated 07/31/2019 [facility]:Result Comment: Electronically Signed By: Henrique DIOP MD\.br\Date and Time Signed: 07/15/24 16:39 [id number] Evaluation + Plan noteExtracted from: Title:Pain Managment Follow up Author:Luz Wang Date:06/25/24 Impression and Plan Patient is a 64-year-old [...] be having an EMG to see Dr. Hastings but he states that he has not been able to get a hold of anybody to get this scheduled. We will try to assist him in doing this. At this time, I would recommend he keep his appointment to see Dr. Hastings and get the EMG. We also discussed medication options. At this time, I am going to have him discontinue the gabapentin and trial Lyrica. 100 mg twice daily. How to switch was discussed. Potential effects discussed. OARRS reviewed. Follow-up in 4 to 6 weeks. Call the clinic in the interim should he require anything from our services. RANDI score: 38%. Future Appointments Appointment Date:07/15/2024 03:20:00 PM Scheduled Provider:Henrique DIOP MD Location:[facility] Appointment Type: Appointment Date:07/29/2024 07:45:00 AM Scheduled Provider:Luz Hernandes PA-C Location:.[facility] Appointment Type:Pain Management - Follow Up (FT) [facility] [id number] NoteConsultation Note Patient: MARY ABURTO Age: 64 years [...] relief for 4 to 6 weeks but thenthis injection did not give him the relief he was looking for. In fact, he is scheduled to see Dr. Hastings but he is awaiting his EMG. He has not been able to get his EMG scheduled so he has had to reschedule his appointment with Dr. Hastings twice. He has right radiating arm pain [...] mg at night as well as oxycodone givento him by his PCP. This gives him [...] malignant neoplasm of colon / SNOMED CT 550201869 / Confirmed Objective Vital Signs 06/25/2024 8:42 [...] than right hand 4+/5 Integumentary: Warm, Dry, [place]. Neurologic: Alert, Oriented. Psychiatric: Cooperative, Appropriate mood [...] be having an EMG to see Dr. Hastinsg but he states that he has not been ableto get a hold of anybody to get this scheduled. We will try to assist him in doing this. At this time, I would recommend he keep his appointment to see Dr. Hastings and get the EMG. We also discussed medication options. At this time, I am going to have him discontinue the gabapentin and trial Lyrica. 100 mg twice daily. How to switch was discussed. Potential effects discussed. OARRS reviewed. Follow-up in 4 to 6 weeks. Call the clinic in the interim should he require anything from our services. RANDI score: 38%.[facility] CenterComment on above:Result Comment: Electronically Signed By: Luz Hernandes PA-C\faustino\Date and Time Signed: 06/25/24 09:16 [id number] Evaluation + Plan noteExtracted from: Title:T2/3 interlaminar epid ural steroid injection Author:Damián Estrada DO Date:8/12/24 Diagnosis: M54.12, cervical radiculopathy Procedure: T2/3 cervical [...] the epidural space was confirmed using the hkiv-fq-bgmbmcdixz technique and 2 cc of air. Injection [...] continue currently prescribed/recommended therapies. Future Appointments Appointment Date:06/25/2024 08:30:00 AM Scheduled Provider:Luz Hernandes PA-C [facility] Appointment Type:Pain Management - Follow Up (FT) [facility] 08-12-2024 NoteOperative Report Diagnosis: M54.12, cervical radiculopathy Procedure: T2/3 [...] the epidural space was confirmed using the asnl-aa-nvdiuhacqx technique and 2 cc of air. Injection [...] procedure, and agrees to continue currently prescribed/recommended therapies.[facility] Comment on above:Result Comment: Electronically Signed By: Damián Estrada DO\Date and Time Signed: 06/09/24 09:06 [id number] NoteUT Cardiology - [facility] Subjective Mary Aburto is a 64 [...] (40 mg) by m (more content not included)...[facility]06-13-2024 Hospital Discharge instructionsAmbulatory Orders* Referral to Neurology Time Frame: 04/10/24, Location: None [facility] Work Phone: 1(381) 567-702405-02-2024 Evaluation + Plan noteExtracted from: Title:chronic pain Author:Damián Estrdaa DO Date:02/28/24 Patient is presenting as a [...] with any questions or concerns that arise. [facility]03-27-2024 Note [id number] [facility] 01-23-2024 NoteDiagnosis: M54.12, cervical radiculopathy Procedure: T2/3 [...] the epidural space was confirmed using the uqtm-ae-lkhdyxgaqk technique and 2 cc of air. Injection [...] procedure, and agrees to continue currently prescribed/recommended therapies.[facility] Comment on above:Result Comment: Electronically Signed By: Damián Estrada DO\.br\Date and Time Signed: 01/23/24 15:15 [id number] Note [id number] [facility] 01-23-2024 Evaluation + Plan noteExtracted from: Title:Thoracic [...] the epidural space was confirmed using the ycdm-ub-ybxfjsrykz technique and 2 cc of air. Injection [...] Date:02/28/2024 03:30:00 PM Scheduled Provider:Damián Estrada DO Location:.[facility] Appointment Type:Pain Management - Follow Up (FT) [facility]02-22-2024 NotePatient here for 1.5 year follow up CAD, AAA, hx of TIA and PE, and hypertension. [facility] is requesting he hold aspirin 6 days [...] quickly). All other systems reviewed and are negative.[facility] 12-20-2023 NoteCardiovascular Medicine [place] [facility] SUBJECTIVE Chief Complaint Patient presents with [...] sx's of chest discomfort after starting baclofen. Bruno like a sharp pain lasting seconds, occurred [...] Final Atrial Rate 01/21/2019 53 BPM Final MS Interval 01/21/2019 150 ms Final QRS DURATION 01/21/2019 90 ms Final QT Interval 01/21/2019 420 ms Final QTC CALCULATION(BEZET) 01/21/2019 394 ms Final P [facility] 01/21/2019 33 degrees Final R-[facility] 01/21/2019 53 degrees Final T Wave [facility] 01/21/2019 66 degrees Final Diagnosis 01/21/2019 Final Value:Sinus bra (more content not included)...[facility]02-08-2024 Evaluation + Plan noteExtracted from: [...] 4/5 strength in his right hand for tube draw helper 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 [facility]12-21-2023 Evaluation + Plan noteExtracted from: Title:Pain [...] Date:11/29/2023 03:15:00 PM Scheduled Provider:Damián Estrada DO Location:.[facility] Appointment Type:Pain Management - Follow Up (FT) [facility]10-17-2023 Evaluation note* Encounter Date Diagnosis Assessment [...] Jul, Spondylolisthesis, cervical region (ICD-10 - M43.12) [facility] 06-06-2023 Evaluation note* Encounter Date Diagnosis [...] Mar, Spondylolisthesis, cervical region (ICD-10 - M43.12) [facility] Other 05-02-2023 Evaluation note* Encounter Date Diagnosis [...] February, Spondylolisthesis, cervical region (ICD-10 - M43.12) [facility] 03-16-2023 Evaluation note* Encounter Date Diagnosis [...] Dec, Spondylolisthesis, cervical region (ICD-10 - M43.12) [facility] Other 02-09-2023 Evaluation note* Encounter Date Diagnosis [...] Cervical radiculopathy at C8 (ICD-10 - M54.12) [facility] Other 10-04-2022 Evaluation note* Encounter Date Diagnosis Assessment Notes Treatment Notes Treatment Clinical Notes Jul, Cervical spondylosis with myelopathy (ICD-10 - M47.12) This patient had a very severe cervical myelopathy with right arm weakness, numbness, and some discomfort; he has gotten better with regard to his left arm, but his right arm is never fully recovered, having a weak tube draw helper numbness and obvious atrophy of his hand [...] Jul, Spondylolisthesis, cervical region (ICD-10 - M43.12) [facility] Other 07-14-2022 Evaluation note* Encounter Date Diagnosis [...] of right upper extremity (ICD-10 - G56.21) [facility] Other 05-19-2022 Evaluation note* Encounter Date Diagnosis [...] take the brace off around that time. [facility] Other 05-05-2022 Progress note Author Antwon Hastings [facility] March 02, 2022 7:55am Note Date/Time March 02, 2022 7:55am [facility] [address] [place] [address] Neurosurgery Progress Note Signed Patient: Mary Aburto MR#: [id number] : 1960 Acct:[id number] Age/Sex: 62 / M Adm Date: 2 Loc: N Room: [address] [place] [address] Type : ADM IN Attending Dr: Antwon [...] signed by MD Antwon Hastings> 03/02/22 0755 [facility] Work Phone: 1(440) 891-643205-04-2022 History and physical note Author Antwon Hastings [facility] March 01, 2022 8:22am Note Date/Time March 01, 2022 8:21am [facility] [address] [place] [address] Neurosurgery H&P Signed with Addenda Patient: Mary Aburto MR#: [id number] : 1960 Acct:[id number] Age/Sex: 62 / M Adm Date: 2 Loc: Room: [address] [place] [address] Type : ADM IN Attending Dr: Antwon [...] extend the fingers of his hand his tube draw helper isweak he has had very little use of his right arm over the last 30 days. He is developing significant shoulder pain. 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 he is notable to do that [...] patient has noted that his right hand tube draw helper is become weaker and his right arm [...] % (Auto) 77.8, Lymph % (Auto) 15.3, Toole % (Auto) 6.2, Eos % (Auto) 0.4, Baso % (Auto) 0.3, Neut # (Auto) 10.2 H, Lymph # (Auto) 2.0, Toole # (Auto) 0.8, Eos # (Auto) 0.0, [...] % (Auto) 82.2, Lymph % (Auto) 9.5, Toole % (Auto) 7.6, Eos % (Auto) 0.1, Baso % (Auto) 0.6, Neut # (Auto) 10.8 H, Lymph # (Auto) 1.2, Toole # (Auto) 1.0 H, Eos # (Auto) [...] <Electronically signed by MD Antwon Hastings> 03/01/[address] [facility] Work Phone: 1(479) 405-865605-03-2022 Consult note Author W Deejay Hughes [facility] February 28, 2022 7:06pm Note Date/Time February 28, 2022 7:06pm [facility] [address] [place] [address] Cardiology Consult Note Signed Patient: Mary Aburto MR#: [id number] : 1960 Acct:[id number] Age/Sex: 62 / M Adm Date: 2 Loc: Room: [address] [place] [address] Type : ADM IN Attending Dr: Antwon [...] tingling. Pt has a PMHx of CAD, MS, HLD, HTN. He had been following up [...] cardiac arrest . This event occurred in [place], he recalls the history reasonably well, strangely, he states that he was only admitted for 4 to5 hours and discharged with no further follow-up. He denies any cardiac surgeryor stenting. He has been following up with Cardiology out of [place] and is currently prescribed Aspirin 81 mg [...] patient oriented x3 Motor: strength abnormal (Decreased tube draw helper strength of right hand and shoulder) Extrem [...] x10E3/uL Lymph # (Auto) 1.2 (1.00-4.8) x10E3/uL Toole # (Auto) 1.0 H (0.0-0.8) x10E3/uL Eos [...] system Documented By: Lupe Hughes DO 02/28/22 153 Signed By: <Electronically signed by Lupe Hughes DO> 02/28/22 1908 [facility] Work Phone: [phone]) 468-672304-28-2022 Evaluation note* Encounter Date Diagnosis Assessment Notes [...] Cervical spondylosis with myelopathy (ICD-10 - M47.12) [facility] Other evaluation + Plan note Future Appointments Appointment Date:06/09/2024 08:45:00 AM Scheduled Provider: Location:[facility] Appointment Type:Surgery FT Appointment Date:06/25/2024 08:30:00 AM Scheduled Provider:Luz Hernandes PA-C Location:FT.[facility] Appointment Type:Pain Management - Follow Up (FT) [facility] Evaluation + Plan note Future Appointments Appointment Date:08/05/2024 08:15:00 AM Scheduled Provider:Luz Hernandes PA-C Location:FT.[facility] Appointment Type:Pain Management - Follow Up (FT) [facility] Evaluation noteNo assessment information available [facility] Work Phone: Evaluation note* Diagnosis Onset Date Resolution Status Cervical disc disorder with myelopathy acute Right arm weakness [facility] Work Phone: Evaluation noteNo InformationN[facility]Che[facility] Other evalzoapdr note* Diagnosis Onset Date Resolution Status Spinal stenosis of cervical region with radiculopathy acute [facility] Work Phone: Evaluation note* Diagnosis Onset Date Resolution Status History of fusion of cervical spine acute Spondylolisthesis, cervical region acute [facility] Work Phone: Evaluation note* Diagnosis Cervical radiculopathy- Primary Brachial neuritis or radiculitis nos documented [facility] Diagnosis Age-related nuclear cataract of both eyes- Primary documented in this encounter [facility] Narrative - Reported* Type Description Date Medical History thyroid disease Surgical History heart catheterization [facility] Other History general Narrative - Reported* Type Description Date Medical History thyroid disease Surgical History heart catheterization Surgical History Posterior Cervical Fusion[facility] Hospitalization History See Above [facility] Other History general Narrative - Reported* Type Description Date Medical History thyroid disease Medical History high cholesterol Surgical History heart catheterization Surgical History Posterior Cervical Fusion-[facility] Hospitalization History See Above [facility] Other History general Narrative - [facility]None[facility] Other History general Narrative - Reported* Type Description Date Medical History thyroid disease Medical History high cholesterol Surgical History heart catheterization Surgical History Posterior Cervical Fusion-[facility] [place] Surgical History PCD with fusion 2022 Hospitalization History See Above [facility] Other Hospital course Narrative No data available for this section [facility] Work Phone: Hospital Discharge instructions No data available for this section [facility] Dis[facility] instructionsAmbulatory Orders* Referral to Neurology Time Frame: 04/10/24, Location: None [facility] Work Phone: Progress note No data available for this section [facility] for [facility] NarrativePain Medicine Referral UpdateNonevada [facility] Other Summary Purpose Family History No Family [...] at C8 (M54.12) Referral Organization [facility] Referring Provider First Name Antwon Referring Provider Last Name Venkata Referring Provider Specialty Neurologica l Surgery Referred Organization [facility] Referred Provider Damián Estrada Referred Address [address] [place], [place],[address] Referred Provider Specialty Pain Medicin e Referral Priority Routine Reason EMG/NCV RUE Diagnosis 1 Ulnar neuropathy of right upper extremity (G56.21) Referral Organization [facility] Referring Provider First Name Antwon Referring Provider Last Name Venkata Referring Provider Specialty Neurologica l Surgery Referred Organization [facility] Referred Provider Davis Cardoso Referred Address [address] [place], [place],[address] Referred Provider Specialty Neurology Referral Priority Routine Additional Source Comments (unrecognized sect ion and content) No Status Records FoundNo Status Records FoundNo Status Records FoundNo Status Records FoundNo Status Records FoundNo Status Records FoundNo Status Records Found INFORMATION SOURCE (unrecogn ized section and content) DATE CREATED AUTHOR 02/03/2019 [facility] DATE CREATED AUTHOR AUTHOR'S ORGANIZ ATION 02/08/2023 [facility] DATE CREATED AUTHOR AUTHOR'S ORGANIZ ATION 02/21/2023 [facility] DATE CREATED AUTHOR AUTHOR'S ORGANIZ ATION 04/11/2024 [facility] DATE CREATED AUTHOR AUTHOR'S ORGANIZ ATION 05/22/2024 [facility] DATE CREATED AUTHOR AUTHOR'S ORGANIZ ATION 11/15/2024 [facility] DATE CREATED AUTHOR AUTHOR'S ORGANIZ ATION 11/17/2024 [facility] Care Teams (unrecognized sec tion and content) Team Status: Active Member Role Status Dates Yury Lara MD Primary Care Provider Active Team Status: Inactive Member Role Status Dates Yury Lara MD Primary Care Provider Active Start: April 10, 2024 End: April 10, 2024 Antwon Hastings MD Attending Provider Active Star t: April 10, 2024 End: April 10, 2024 Team Status: Active Member Role Status Dates Yury Lara MD Primary Care Provider Active Start: April 10, 2024 Antwon Hastings MD Attending Provider Active Star t: April 10, 2024 Team Status: Inactive Member Role Status Dates Yury Lara MD Primary Care Provider, Attending Pr ovider Active Team Status: Inactive Member Role Status Dates Temporary Anesthesiologist Attending Provider Active Yury Lara MD Primary Care Provider, Referring Pr ovider Active Team Status: Active Member Role Status Dates Yury Lara MD Primary Care Provider Active Laura Yu [facility] Emergency Provider Active Antwon Hastings MD Admit Provider, Attending Provider A ctive Team Status: Inactive Member Role Status Dates Yury Lara MD Primary Care Provide r, Attending Provider, Referring Provider Active Team Status: Inactive Member Role Status Dates Yury Lara MD Primary Care Provider Active Laura Yu [facility] Emergency Provider Active Antwon Hastings MD Admit Provider, Attending Provider A ctive Team Status: Inactive Member Role Status Dates Yury Lara MD Primary Care Provider Active Antwon Hastings MD Attending Provider Active Team Status: Inactive Member Role Status Dates Yury Lara MD Primary Care Provider Active Antwon Hastings MD Admit Provider, Attending Provider A ctive Tying In Machine Operator Relationship Specialty Start Date End Date Yury Lara MD [address] [place] [phone] PCP - General Family Medicine 05/31/23 Tying In Machine Operator Relationship Specialty Start Date End Date Yury Lara MD [address] [place] [phone] PCP - General Family Medicine 05/31/23 Tying In Machine Operator Relationship Specialty Start Date End Date Yury Lara MD [address] [place] [phone] PCP - General Family Medicine 05/31/23 Tying In Machine Operator Relationship Specialty Start Date End Date Yury Lara MD [address] [facility] [place] [phone] PCP - General Family Medicine 05/31/23 Goals (unrecognized section and content) Goals may [...] FOR VISIT (unrecogniz ed section and content) Reason Comments Cataract FOR RECORDS PERTAINING TO PATIENTS WHO ARE [...] BE BASED ON THE PRIMARY CLINICAL RECORDS. [employer] provides no warranty or guarantee of the accuracy or completeness of information in this document.
[2025-01-04 11:09] LABS: Hematocrit 38.3 % (42.0-54.0); Hemoglobin 13.4 g/dL (14.0-18.0); Mean Corpuscular Hemoglobin 33.2 pg (25.9-34.0); Mean Corpuscular Volume 94.8 fL (80.0-94.0); Mean Platelet Volume 9.3 fL (9.5-13.5); Platelet Count 219 10^3/uL (150-450); Red Blood Count 4.04 10^6/uL (4.70-6.10); Red Cell Distribution Width 13.9 % (11.0-15.0); White Blood Count 6.3 10^3/uL (4.0-11.0)
[2025-01-04 11:20] LABS: Influenza Virus A Antigen Negative; Influenza Virus B Antigen Negative; Internal Control Within Normal Limits; SARS-CoV-2 Ag NEGATIVE (NEGATIVE)
[2025-01-04 11:27] LABS: Anion Gap 11.8; BUN Creatinine Ratio 7.4; Calcium 8.9 mg/dL (8.5-10.1); Carbon Dioxide 25.5 mmol/L (21.0-32.0); Chloride 103 mmol/L (98-107); Estimated GFR (African America >60 (>=60 mL/min/1.73m^2); Estimated GFR (Non-African Ame >60 (>=60 mL/min/1.73m^2); Glucose 125 mg/dL (74-106); Potassium 4.3 mmol/L (3.5-5.1); Sodium 136 mmol/L (136-145); Troponin I High Sensitivity <4.0 pg/mL (4.0-76.1)
[2025-01-04 11:30] LABS: Basophils Abs Manual 0.06 10^3/uL (0.00-0.10); Eosinophils Absolute Manual 0.06 10^3/uL (0.00-0.70); Monocytes Absolute Manual 0.88 10^3/uL (0.30-0.80); Segmented Neut Absolute Manual 4.78 10^3/uL (1.4-6.5)
[2025-01-04 11:32] LABS: Anisocytosis 1+; Ovalocytes 1+
[2025-01-04] MEDS: 0.9 % SODIUM CHLORIDE 1,000 ML 1000 ML IV (11:58)
== END 2025-01-04 13:00 | disposition home or self-care (01) ==
PROVIDERS: Emergency Provider Emergency Medicine; PCP Family Medicine
DX: B34.9 Viral infection, unspecified (principal)
CPT/HCPCS: 36415; 71045; 80048; 84484; 85007; 85027; 87804; 87811; 93005; 96374; 99285; J2405

== ENCOUNTER 2025-05-05 13:04 | Outpatient (OUT) | payer MEDICARE, SELFPAY ==
--- OUTSIDE RECORDS SUMMARY | 2024-11-12 11:47 | XMS_ITS ---
Author Name Auto Generated Organization [facility] Care Team Providers Care Order Management Specialist Name Role Phone THEODORA BANKS Attending Unavailable Damián Estrada Admitting Unavailable Damián Estrada Attending Unavailable Damián Estrada Referring Unavailable Damián Estrada Admitting Unavailable Damián Estrada Attending Unavailable Damián Estrada Referring Unavailable Luz Hernandes Attending Unavailable Yury Quintanilla Referring Unavailable Hernandes, Luz Admitting Unavailable HoYury joiner Referring Unavailable Hernandes, Luz Admitting Unavailable Cecilio Luz Attending Unavailable Yury Quintanilla Referring Unavailable Hernandes, Luz Admitting Unavailable HernandesMicahLuz Attending Unavailable Henrique DIOP Attending Unavailable Yury Quintanilla Referring Unavailable DEVIKA GUSTAFSON Attending Unavailable RAYNE BERRY Attending Unavailable JUANJOSE BAR Referring Unavailable PROBLEMS DATE TYPE CONDITION / CODE ATTENDING STATUS [facility] 12/20/2023 Admitting Diagnosis Essential (primary) hypertension / I10(ICD-10) [facility]OCELYN [facility] 05/19/2024 Admitting Diagnosis Atherosclerotic heart disease of [place] coronary artery without angina pectoris / I25.10(ICD-10) [facility]OCELYN [facility] 05/19/2024 Admitting Diagnosis Mixed [facility]lipidemia / [facility]78.2(ICD-10) [facility] Admitting Diagnosis Aneurysm of the ascending aorta, without rupture / I71.21(ICD-10) [facility]OC[facility]N [facility] 05/19/2024 Admitting Diagnosis Palpitations / R00.2(ICD-10) [facility] PROCEDURES No Procedure Records Found RESULTS CONSULTATION NOTE Observed: 09/16/2024 9:04 AM Status: F Source: [facility] Consultation Note Patient: MARY ABURTO [facility]: [id number] Age: 64 years Sex: Male : 1960 Associated Diagnoses: None Author: Luz Hernandes PA-C Subjective Chief complaint 09/16/2024 8:41 EST right hand/arm and into shoulder/neck/back . Patient is a 64-year-old male. He presents today for follow-up after increasing his Lyrica. 200 mg twice daily. This has made some improvement. He is happy with this. He states that things are better. Unfortunate, he still has pain that is a 5???10/10 on the visual analog scale. He underwent previous repeat T2-3 epidural steroid injection. This was done on 06/09/2024 and unfortunately, did not give him relief like the previous one did. He had an EMG but he has not yet seen Dr. Carlos. He states that he has not heard from them. He is also having some insurance issues. He is going to get a hold of them Patient does use oxycodone given to him by his PCP. He is going to continue to get Lyrica from our services and at this time, he does not want to make any changes. Health Status Allergies: Allergic Reactions (Selected) Severity Not Documented Penicillin- Rash. Sulfa drugs- Rash., Allergies (2) Active Severity Reaction sulfa drugs Rash penicillin Rash Current medications: (Selected) Prescriptions Prescribed Lyrica 200 mg Cap: 200 mg = 1 cap(s), Oral, BID, X 30 day(s), # 60 cap(s), Refills(s) 2, Pharmacy: [facility]/pharmacy #[id number], 172.7, cm, 08/05/24 8:27:00 EDT, Height/Length Dosing, 65.9, kg, 08/05/24 8:27:00 EDT, Weight Dosing pregabalin 150 mg Cap: 150 mg = 1 cap(s), Oral, BID, # 60 cap(s), Refills(s) 1, Pharmacy: [facility]/pharmacy #[id number], 178, cm, 06/25/24 8:51:00 EDT, Height/Length Dosing, 65.8, kg, 06/25/24 8:51:00 EDT, Weight Dosing Documented Medications Documented Dilantin 100 mg Cap-ER: 300 mg = 3 cap(s), Oral, BID Metoprolol tartrate 25 mg Tab: 25 mg = 1 tab(s), Oral, BID Vitamin D3: Oral, Daily, Refills(s) 0 aspirin 81 mg oral tablet: 81 mg = 1 tab(s), Oral, Daily atorvastatin 40 mg Tab: 40 mg = 1 tab(s), Oral, Daily, Refills(s) 0 baclofen 20 mg Tab: 20 mg = 1 tab(s), Oral, TID, Refills(s) 0 levothyroxine 75 mcg (0.075 mg) Tab: 75 mcg = 1 tab(s), Oral, Daily, Refills(s) 0 oxaprozin 600 mg Tab: 1,200 mg = 2 tab(s), Oral, Daily, Refills(s) 0 oxyCODONE 5 mg Cap: 5 mg = 1 cap(s), Oral, BID, Refills(s) 0 traZODONE 100 mg Tab: 150 mg = 1.5 tab(s), Oral, Once a day (at bedtime) Problem list: All Problems Screening for malignant neoplasm of colon / SNOMED CT 405714037 / Confirmed Aneurysm of ascending aorta / SNOMED CT 2298976267 / Confirmed Cerebrovascular accident / SNOMED CT 781329966 / Confirmed Cervical radiculopathy / SNOMED CT 738877125 / Confirmed Diverticula of intestine / SNOMED CT 166550322 / Confirmed Dyslipidemia / SNOMED CT 2517650020 / Confirmed Essential hypertension / SNOMED CT 62135562 / Confirmed Hemiplegia of right nondominant side / SNOMED CT 1276304810 / Confirmed Myocardial infarction / SNOMED CT 46964640 / Confirmed History of pulmonary embolism / SNOMED CT 602471340 / Confirmed Seborrheic keratoses / SNOMED CT 8423204531 / Confirmed Objective Vital Signs 09/16/2024 8:41 EST Peripheral Pulse Rate 52 bpm LOW Respiratory Rate 16 br/min Systolic Blood Pressure 110 mmHg Diastolic Blood Pressure 77 mmHg Mean Arterial Pressure, Cuff 88 mmHg General: Alert and oriented, No acute distress. Eye: Normal conjunctiva. HENT: Normocephalic, Normal hearing. Cardiovascular: No edema. Musculoskeletal Normal range of motion. Normal strength. 5/5 strength other than right hand 4+/5 Integumentary: Warm, Dry, [place]. Neurologic: Alert, Oriented. Psychiatric: Cooperative, Appropriate mood & affect. 14 point review of systems was negative unless otherwise noted. Results Review Cervical MRI scan report and films once again reviewed Upper extremity bilateral EMG. Chronic C8 radiculopathy on the right severe. Chronic C5 radiculopathy on the right mild to moderate in degree. Impression and Plan Patient is a 64-year-old male with a past medical history significant for previous fusion, cervical stenosis and cervical neuritis. Previous epidural did not give him any long-term relief. At this time, he feels that the 200 mg twice a day helps him. He tolerates it well. In regards to his EMG we obtain the results. We reviewed this. We also reviewed his previous MRI. I would recommend he reach out to Dr. Carlos as he states that he did not hear from them. He does not want a make any changes and he does not want to do anything differently with our services. He is going to follow-up in 3 months for medication management. RANDI score: 42 %. Result Comment: Electronical ly Signed By: Luz Hernandes PA-C\.br\Date and Time Signed: 09/16/24 09:07 EST CONSULTATION NOTE Observed: 08/05/2024 8:34 AM Status: F Source: [facility] Consultation Note Patient: MARY ABURTO Age: 64 years Sex: Male : 1960 Associated Diagnoses: None Author: Luz Hernandes PA-C Subjective Chief complaint 08/05/2024 8:19 EDT Neck Pain . Patient is a 64-year-old male. He presents today for follow-up after increasing his Lyrica. 150 mg twice daily. This has made some improvement. He has neck pain with right radiating arm pain that he rates a 6/10. He states that it is not perfect but it is better than before. He underwent previous repeat T2-3 epidural steroid injection. This was done on 06/09/2024 and unfortunately, did not give him relief like the previous one did. Patient did share with me that he is scheduled to have the EMG in early August and then he is going to see Dr. Carlos after. Patient does use oxycodone given to him by his PCP. He feels that things are not perfect but they are improved with the Lyrica. He tolerates this well. No side effects. He takes as prescribed. Health Status Allergies: Allergic Reactions (Selected) Severity Not Documented Penicillin- Rash. Sulfa drugs- Rash., Allergies (2) Active Severity Reaction sulfa drugs Rash penicillin Rash Current medications: (Selected) Prescriptions Prescribed pregabalin 150 mg Cap: 150 mg = 1 cap(s), Oral, BID, # 60 cap(s), Refills(s) 1, Pharmacy: [facility]/pharmacy #[id number], 178, cm, 06/25/24 8:51:00 EDT, Height/Length Dosing, 65.8, kg, 06/25/24 8:51:00 EDT, Weight Dosing pregabalin 50 mg Cap: 50 mg = 1 cap(s), Oral, BID, X 20 day(s), # 40 cap(s), Refills(s) 0, Pharmacy: [facility]/pharmacy #[id number], 172.7, cm, 08/05/24 8:27:00 EDT, Height/Length Dosing, 65.9, kg, 08/05/24 8:27:00 EDT, Weight Dosing Documented Medications Documented Dilantin 100 mg Cap-ER: 300 mg = 3 cap(s), Oral, BID Metoprolol tartrate 25 mg Tab: 25 mg = 1 tab(s), Oral, BID Vitamin D3: Oral, Daily, Refills(s) 0 aspirin 81 mg oral tablet: 81 mg = 1 tab(s), Oral, Daily atorvastatin 40 mg Tab: 40 mg = 1 tab(s), Oral, Daily, Refills(s) 0 baclofen 20 mg Tab: 20 mg = 1 tab(s), Oral, TID, Refills(s) 0 levothyroxine 75 mcg (0.075 mg) Tab: 75 mcg = 1 tab(s), Oral, Daily, Refills(s) 0 oxaprozin 600 mg Tab: 1,200 mg = 2 tab(s), Oral, Daily, Refills(s) 0 oxyCODONE 5 mg Cap: 5 mg = 1 cap(s), Oral, BID, Refills(s) 0 traZODONE 100 mg Tab: 150 mg = 1.5 tab(s), Oral, Once a day (at bedtime) Problem list: All Problems Screening for malignant neoplasm of colon / SNOMED CT 507965745 / Confirmed Aneurysm of ascending aorta / SNOMED CT 6724072013 / Confirmed Cerebrovascular accident / SNOMED CT 604514495 / Confirmed Cervical radiculopathy / SNOMED CT 671028287 / Confirmed Diverticula of intestine / SNOMED CT 402928114 / Confirmed Dyslipidemia / SNOMED CT 6268844322 / Confirmed Essential hypertension / SNOMED CT 05654212 / Confirmed Hemiplegia of right nondominant side / SNOMED CT 1191406010 / Confirmed Myocardial infarction / SNOMED CT 27238057 / Confirmed History of pulmonary embolism / SNOMED CT 551572645 / Confirmed Seborrheic keratoses / SNOMED CT 8766289160 / Confirmed Objective Vital Signs 08/05/2024 8:19 EDT Peripheral Pulse Rate 60 bpm Respiratory Rate 14 br/min Systolic Blood Pressure 103 mmHg Diastolic Blood Pressure 69 mmHg Mean Arterial Pressure, Cuff 80 mmHg General: Alert and oriented, No acute distress. Eye: Normal conjunctiva. HENT: Normocephalic, Normal hearing. Cardiovascular: No edema. Musculoskeletal Normal range of motion. Normal strength. 5/5 strength other than right hand 4+/5 Integumentary: Warm, Dry, [place]. Neurologic: Alert, Oriented. Psychiatric: Cooperative, Appropriate mood & affect. 14 point review of systems was negative unless otherwise noted. Results Review Cervical MRI scan report and films once again reviewed Impression and Plan Patient is a 64-year-old male with a past medical history significant for previous fusion, cervical stenosis and cervical neuritis. Previous epidural did not give him any long-term relief. At that time, we started him on Lyrica instead of gabapentin. He feels of this has made some improvement. He is using 150 mg twice a day. He tolerates the medication well. No side effects. We discussed adding in 50 mg to total 200 mg twice daily to see if this can get him some better control of his pain. Potential hide effects were discussed. OARRS was reviewed. Prescription sent to the pharmacy. In regards to his EMG he is scheduled to have this in early August and then he is going to see Dr. Carlos. I would recommend he follow through with both of these things. We will see patient back in 6 to 8 weeks to see how he is doing with the new dose of the medication. He will call us in the interim should he require anything from our services. RANDI score: 56%. Result Comment: Electronical ly Signed By: Luz Hernandes PA-C\.mansoor\Date and Time Signed: 08/05/24 08:38 EDT GENERAL SURGERY OFFICE/CLINI C NOTE Observed: 07/15/2024 4:39 PM Status: F Source: [facility] General Surgery Office/Clini c Note Chief Complaint consultation for nevus HPI Staff 64 year old male presents on consultation from Dr. Quintanilla for nevus on back. Reports multiple scattered skin lesions over back. Denies soreness, bleeding, drainage or itching. History of Present Illness 64 yo male with h/o CAD, MA, htn, hyperlipidemia, hypothyroidism, CVA, cervical radiculopathy, referred for changing back lesions, some increase in size per patient's ; no ulceration or bleeding, no pain or itching; no h/o skin cancer; on baby asa daily, no NSAID use; no tobacco, uses Marijuana daily. Review of Systems PHQ Score Initial Depression Screen Score: 0 SCORE ROS - Provider Constitutional: no fever, no sweats, no weight loss. Eyes: no glasses, no blurred vision, no visual loss. ENMT: no dentures, no hoarseness, no swallowing difficulties, no hearing loss, no ear infection(s), no nose bleeds. Cardiovascular: normal blood pressure, no chest pain, regular heartbeat, no heart murmur. Respiratory: no shortness of breath, no cough, no asthma, no wheezing. Gastrointestinal: no nausea, no vomiting, no diarrhea, no constipation, no blood in stool, no change in bowel habits, no abdominal pain, no hepatitis. Genitourinary: no kidney stones, no urine infection, no dysuria. Musculoskeletal: no pain, no weakness. Skin: yes changing moles, no rash, no skin lumps. Neurologic: no seizures, no epilepsy, no headache. Psychiatric: no emotional or psychiatric problem. Heme/Lymph: no bleeding problems, no anemia, no blood clots, no transfusions. Allergy/Immunologic: no swollen lymph nodes/glands, no IV drug abuse. Other: Additional ROS info: Except as noted in the above Review of Systems and in the History of Present Illness, all other systems have been reviewed and are negative or noncontributory. Physical Exam Vitals & Measurements HR: 72(Peripheral) RR: 16 BP: 126/86 HT: 68 in HT: 172.72 cm WT: 66.8 kg WT: 146.96 lb BMI: 22.39 skin: multiple seborrheic keratosis on back ranging in size from 3 mm to 1.2 cm; no nevi or suspicious lesions. Assessment/Plan 1. Seborrheic keratoses (L82.1: Other seborrheic keratosis) no need for excision; call with problems/questions. Follow-up No qualifying data available Problem List/Past Medical History Ongoing Aneurysm of ascending aorta Cerebrovascular accident Cervical radiculopathy Diverticula of intestine Dyslipidemia Essential hypertension Hemiplegia of right nondominant side History of pulmonary embolism Myocardial infarction Screening for malignant neoplasm of colon Seborrheic keratoses Historical No qualifying data Procedure/Surgical History Epidural injection of thoracic spine using fluoroscopic guidance (06/09/2024), Epidural injection of thoracic spine using fluoroscopic guidance (01/23/2024), Cardiac catheter (01/21/2019), Arthroplasty of shoulder, Cervical laminectomy, Closed fracture of clavicle. Medications aspirin 81 mg oral tablet, 81 mg= 1 tab(s), Oral, Daily atorvastatin 40 mg Tab, 40 mg= 1 tab(s), Oral, Daily baclofen 20 mg Tab, 20 mg= 1 tab(s), Oral, TID, Not taking Dilantin 100 mg Cap-ER, 300 mg= 3 cap(s), Oral, BID levothyroxine 75 mcg (0.075 mg) Tab, 75 mcg= 1 tab(s), Oral, Daily Metoprolol tartrate 25 mg Tab, 25 mg= 1 tab(s), Oral, BID oxaprozin 600 mg Tab, 1200 mg= 2 tab(s), Oral, Daily oxyCODONE 5 mg Cap, 5 mg= 1 cap(s), Oral, BID pregabalin 150 mg Cap, 150 mg= 1 cap(s), Oral, BID, 1 refills traZODONE 100 mg Tab, 150 mg= 1.5 tab(s), Oral, Once a day (at bedtime) Allergies penicillin (Rash) sulfa drugs (Rash) Social History Alcohol - Medium Risk, 09/10/2019 Current, 1-2 times per week, 10/18/2023 Substance Abuse - Denies Substance Abuse, 09/10/2019 Current, Marijuana, Daily, 10/18/2023 Tobacco Former smoker, quit more than 30 days ago Tobacco Use:. Never Smokeless Tobacco Use:. Cigarettes, 2 per day. Started age 13.0 Years. Stopped age 56 Years., 07/15/2024 Family History Diabetes mellitus type 2: Mother. Primary malignant neoplasm of lung: Father and Sister. Stroke: Mother. Immunizations Vaccine Date Status SARS-CoV-2 (COVID-19) mRNA BNT-162b2 vax 11/09/2021 Recorded SARS-CoV-2 (COVID-19) mRNA BNT-162b2 vax 02/28/2021 Recorded SARS-CoV-2 (COVID-19) mRNA BNT-162b2 vax 02/07/2021 Recorded influenza virus vaccine, inactivated 07/31/2019 Recorded Result Comment: Electronical ly Signed By: CHIKIS WYMAN, Henrique Vazquez\.br\Date and Time Signed: 07/15/24 16:39 EDT AMBULATORY VISIT SUMMARY Observed: 07/15 3:43 PM Status: F Source: [facility] Ambulatory Visit Summary MARY ABURTO :1960 Visit Date:07/15/2024 Ambulatory Visit Instructions Your Care Team Attending Physician - CHIKIS WYMAN, Henrique Vazquez Primary Care Physician - Socorro WYMAN, Yury Referring Physician - Yury Quintanilla MD This Is Your Medications List Contact prescribing physician if questions or concerns aspirin (aspirin 81 mg oral tablet) atorvastatin (atorvastatin 40 mg Tab) baclofen (baclofen 20 mg Tab) levothyroxine (levothyroxine 75 mcg (0.075 mg) Tab) metoprolol (Metoprolol tartrate 25 mg Tab) oxaprozin (oxaprozin 600 mg Tab) oxycodone (oxyCODONE 5 mg Cap) phenytoin (Dilantin 100 mg Cap-ER) pregabalin (pregabalin 150 mg Cap) trazodone (traZODONE 100 mg Tab) Procedures Performed Epidural injection of thoracic spine using fluoroscopic guidance (06/09/2024), Epidural injection of thoracic spine using fluoroscopic guidance (01/23/2024), Cardiac catheter (01/21/2019), Arthroplasty of shoulder, Cervical laminectomy, Closed fracture of clavicle. Discharge Vitals Heart Rate (Peripheral) 72 Respiratory Rate 16 Blood Pressure 126/86 Height 172.72 cm Height 68 in Weight 66.8 kg Weight 146.96 lb BMI 22.39 What to do next Scheduled Follow-Up Appointments Sunday 8:15 AM EDT With: Luz Hernandes PA-C Where: [facility] Medications What How Much When Why Instructions Unchanged aspirin (aspirin 81 mg oral tablet) 1 Tablets By Mouth Every day Contact prescribing physician if questions or concerns Unchanged atorvastatin (atorvastatin 40 mg Tab) 1 Tablets By Mouth Every day Contact prescribing physician if questions or concerns Unchanged baclofen (baclofen 20 mg Tab) 1 Tablets By Mouth 3 times a day Contact prescribing physician if questions or concerns Unchanged levothyroxine (levothyroxine 75 mcg (0.075 mg) Tab) 1 Tablets By Mouth Every day Contact prescribing physician if questions or concerns Unchanged metoprolol (Metoprolol tartrate 25 mg Tab) 1 Tablets By Mouth 2 times a day Contact prescribing physician if questions or concerns Unchanged oxaprozin (oxaprozin 600 mg Tab) 2 Tablets By Mouth Every day Contact prescribing physician if questions or concerns Unchanged oxycodone (oxyCODONE 5 mg Cap) 1 Capsules By Mouth 2 times a day Contact prescribing physician if questions or concerns Unchanged phenytoin (Dilantin 100 mg Cap-ER) 3 Capsules By Mouth 2 times a day Contact prescribing physician if questions or concerns Unchanged pregabalin (pregabalin 150 mg Cap) 1 Capsules By Mouth 2 times a day Cervical neuritis Contact prescribing physician if questions or concerns Unchanged trazodone (traZODONE 100 mg Tab) 1.5 Tablets By Mouth Once a day (at bedtime) Contact prescribing physician if questions or concerns Allergies penicillin (Rash) sulfa drugs (Rash) Problems Ongoing - Any problem that you are currently receiving treatment for. Aneurysm of ascending aorta Cerebrovascular accident Cervical radiculopathy Diverticula of intestine Dyslipidemia Essential hypertension Hemiplegia of right nondominant side History of pulmonary embolism Myocardial infarction Screening for malignant neoplasm of colon Patient Survey You may receive a survey via text or e-mail asking about your office visit. Please share your experience with us by completing your survey. We appreciate your feedback and thank you for choosing us for your care. CONSULTATION NOTE Observed: 06/25/2024 9:12 AM Status: F Source: [facility] Consultation Note Patient: MARY ABURTO Age: 64 years Sex: Male : 1960 Associated Diagnoses: None Author: Luz Hernandes PA-C Subjective Chief complaint 06/25/2024 8:42 EDT right shoulder/arm pain . Patient is a 64-year-old male. He presents today for follow-up after undergoing a repeat T2-3 epidural steroid injection. This was done on 06/09/2024 and 40, did not give him relief like the previous one did. Patient had this done a few months ago and got significant relief for 4 to 6 weeks but then this injection did not give him the relief he was looking for. In fact, he is scheduled to see Dr. Carlos but he is awaiting his EMG. He has not been able to get his EMG scheduled so he has had to reschedule his appointment with Dr. Carlos twice. He has right radiating arm pain that he rates a 5?10/10. It is worse in the mornings and worse with certain activities. This is very frustrating to him. He just wants to get a plan in place to get his pain better under control. He is currently on gabapentin 600 mg in the morning and 1200 mg at night as well as oxycodone given to him by his PCP. This gives him some improvement not enough. Health Status Allergies: Allergic Reactions (Selected) Severity Not Documented Penicillin- Rash. Sulfa drugs- Rash., Allergies (2) Active Severity Reaction sulfa drugs Rash penicillin Rash Current medications: (Selected) Documented Medications Documented Dilantin 100 mg Cap-ER: 100 mg = 1 cap(s), Oral, BID Metoprolol tartrate 25 mg Tab: 25 mg = 1 tab(s), Oral, BID Vitamin D: Oral, Daily, Refills(s) 0 acetaminophen-oxycodone 325 mg-5 mg Tab: 1 tab(s), Oral, BID as needed for pain, Refill(s) 0 aspirin 81 mg oral tablet: 81 mg = 1 tab(s), Oral, Daily baclofen 20 mg Tab: 20 mg = 1 tab(s), Oral, TID, Refills(s) 0 gabapentin 600 mg Tab: 600 mg = 1 tab(s), Oral, BID, takes one in AM and 2 at night levothyroxine 50 mcg (0.05 mg) Tab: 50 microgram = 1 tab(s), Oral, BID oxaprozin 600 mg Tab: 1,200 mg = 2 tab(s), Oral, Daily, Refills(s) 0 simvastatin 40 mg Tab: 40 mg = 1 tab(s), Oral, Daily traZODONE 100 mg Tab: 100 mg = 1 tab(s), Oral, Once a day (at bedtime) Problem list: All Problems Screening for malignant neoplasm of colon / SNOMED CT 222158790 / Confirmed Objective Vital Signs 06/25/2024 8:42 EDT Peripheral Pulse Rate 59 bpm LOW Respiratory Rate 16 br/min Systolic Blood Pressure 106 mmHg Diastolic Blood Pressure 64 mmHg Mean Arterial Pressure, Cuff 78 mmHg General: Alert and oriented, No acute distress. Eye: Normal conjunctiva. HENT: Normocephalic, Normal hearing. Cardiovascular: No edema. Musculoskeletal Normal range of motion. Normal strength. 5/5 strength other than right hand 4+/5 Integumentary: Warm, Dry, [place]. Neurologic: Alert, Oriented. Psychiatric: Cooperative, Appropriate mood & affect. 14 point review of systems was negative unless otherwise noted. Results Review Cervical MRI report reviewed. Impression and Plan Patient is a 64-year-old male with a past medical history significant for cervical stenosis, cervical neuritis and previous cervical fusion. Patient underwent a recent repeat T2-3 epidural steroid injection that unfortunate, did not give him the relief he is looking for. He continues to have right radiating arm pain that can get up to a 10/10. Worse with certain activities. He is very frustrated by this. He is supposed to be having an EMG to see Dr. Carlos but he states that he has not been able to get a hold of anybody to get this scheduled. We will try to assist him in doing this. At this time, I would recommend he keep his appointment to see Dr. Carlos and get the EMG. We also discussed medication options. At this time, I am going to have him discontinue the gabapentin and trial Lyrica. 100 mg twice daily. How to switch was discussed. Potential effects discussed. OARRS reviewed. Follow-up in 4 to 6 weeks. Call the clinic in the interim should he require anything from our services. RANDI score: 38%. Result Comment: Electronical ly Signed By: Luz Hernandes PA-C\.br\Date and Time Signed: 06/25/24 09:16 EDT 36 Observed: 06/11/2024 4:13 PM Status: COMPLETED Source: [facility] Regarding lab results from : MD Elena Rodriguez MA Blood testing was very good, follow up as planned. made aware. OPERATIVE REPORT Observed: 06/09/2024 9:06 AM Status: F Source: [facility] Operative Report Diagnosis: M54.12, cervical radiculopathy Procedure: T2/3 cervical interlaminar epidural steroid injection under fluoroscopic guidance Anesthesia: Local Complications: none Thoracic interlaminar epidural steroid injection was performed for cervical based pain due to the patient's extensive surgery extending down to the upper thoracic spine. After informed consent was obtained, the patient [...] the epidural space was confirmed using the nyiw-lg-dsdyeahngo technique and 2 cc of air. Injection of contrast revealed appropriate spread without vascular uptake. Confirmation achieved with at least two fluoroscopic views. 3 mL of normal saline plus 40 mg of methylprednisolone was then injected. The needle was removed and the patient was then transferred to the cover room in stable condition. The patient tolerated the procedure well. There were no apparent complications. Follow-up: The patient will update us on the response to this procedure, and agrees to continue currently prescribed/recommended therapies. Result Comment: Electronical ly Signed By: Damián Estrada DO\.br\Date and Time Signed: 06/09/24 09:06 EDT MAIN OR INTRAOPERATIVE RECORD Observed: 06/09/2024 8:57 AM Status: F Source: [facility] Main OR Intraoperative Recor d IntraOp Document Type [facility] Summary Primary Physician: Damián Estrada DO Finalized Date/Time: 06/09/24 09:06:20 Pt. Name: MARY ABURTO Bandar Man/Sex: 1960 Male Med Rec #: [id number] Physician: Damián Estrada DO Financial #: [id number] Pt. Type: P Room/Bed: / Admit/Disch: 06/09/24 07:37:54 - Institution: Case Times FTPM Entry 1 Patient Times In Room 06/09/24 08:54:00 Out Room 06/09/24 09:06:00 Procedure Times Start 06/09/24 08:57:00 Stop 06/09/24 09:05:00 Anesthesia Times Last Modified By: Pricilla Sue RN 06/09/24 09:05:59 Case Attendance FTPM Entry 1 Entry 2 Entry 3 Case Attendee Damián Estrada DO, RN, Yuliana Boo RN Role Performed Surgeon - Primary Field Naturalist - Primary Scrub - Primary Time In 06/09/24 08:54:00 06/09/24 08:54:00 06/09/24 08:54:00 Time Out 06/09/24 09:06:00 06/09/24 09:06:00 06/09/24 09:06:00 Procedure THORACIC EPIDURAL THORACIC EPIDURAL THORACIC EPIDURAL STEROID INJECTION(.) STEROID INJECTION(.) STEROID INJECTION(.) Comments Last Modified By: Vikram POLK, Pricilla Sue RN, Pricilla Justin RN 06/09/24 09:05:59 06/09/24 09:05:59 06/09/24 09:05:59 Entry 4 Case Attendee Lele Evans Role Performed Test Borer Time In 06/09/24 08:54:00 Time Out 06/09/24 09:06:00 Procedure THORACIC EPIDURAL STEROID INJECTION(.) Comments Last Modified By: Pricilla Sue RN 06/09/24 09:05:59 Perioperative Protocols FTPM Pre-Care Text: Implements protective measures prior to operative or invasive procedure, confirms identity before the operative or invasive procedure, verifies operative procedure, surgical site, and laterality Entry 1 Procedure(s) THORACIC EPIDURAL Patient Identity Birthday, ID Band STEROID INJECTION(.) Verified (select at Check, Patient least 2): Participation Consents / H and P H&P, Surgery/Procedure Operative Site Present Verified Consent Marking Verified Surgical Site Yes Laterality Verified Yes Verified Procedure Verified Yes Correct Patient Yes Position Verified Availability Equipment, Medication, Prep Dry Yes Verified (If X-ray Applicable) PreOp Antibiotic No Time Out Pricilla Sue RN, Smith RN, Sean Bridges DO, Bradford A., Jus RT, Lele P Time Out Complete 06/09/24 08:54:00 Outcomes Met? Yes Last Modified By: Pricilla Sue RN 06/09/24 08:54:35 Post-Care Text: The patient is free from signs and symptoms of injury caused by extraneous objects Allergy Information FTPM Pre-Care Text: Verifies allergies Entry 1 Allergies Reviewed? Yes Allergies Reviewed Self/Patient With Outcomes Met? Yes Last Modified By: Pricilla Sue RN 06/09/24 08:52:53 Post-Care Text: The patient received appropriate medication(s) safely administered during the perioperative period Surgical Procedures FTPM Entry 1 Procedure Description Procedure THORACIC EPIDURAL Modifiers . STEROID INJECTION Surgeon Description T2/3 RUBENS Primary Procedure Yes Primary Surgeon Damián Estrada DO Start 06/09/24 08:57:00 Stop 06/09/24 09:05:00 Anesthesia Type None Surgical Service Pain Management Wound Class 1 - Clean Last Modified By: Pricilla Sue RN 06/09/24 09:06:11 General Case Data FTPM Pre-Care Text: Classifies surgical wound, implements aseptic technique, initiates traffic control Entry 1 Case Information OR Pain Proc Room Case Level Level 2 Wound Class 1 - Clean Specialty Pain Management Preop Diagnosis M54.12 Postop Same As Preop Yes Postop Diagnosis M54.12 Outcomes Met? Yes Last Modified By: Pricilla Sue RN 06/09/24 08:54:44 Post-Care Text: The patient is free from signs and symptoms of infection Skin Assessment (Pre Procedure) FTPM Pre-Care Text: Implements protective measures to prevent skin/ tissue injury due to thermal or mechanical sources Evaluates for signs and symptoms of physical injury to skin and tissue Entry 1 Skin Integrity Intact, [place], Warm, & Skin Abnormality No Dry Outcomes Met? Yes Last Modified By: Pricilla Sue RN 06/09/24 08:53:32 Post-Care Text: The patient is free from signs and symptoms of injury caused by extraneous objects Patient Positioning FTPM Pre-Care Text: Identifies physical alterations that require additional precautions for procedure-specific positioning, verifies presence of prosthetics or corrective devices, positions the patient, evaluates the patient for signs and symptoms of injury as a result of positioning Entry 1 Procedure THORACIC EPIDURAL Body Position Prone STEROID INJECTION(.) Feet Uncrossed? Yes Left Arm Position Resting at Side Right Arm Position Resting at Side Left Leg Position Extended Right Leg Position Extended Positioning Device Pillow Under Head Large, Safety Strap, Pillow Large Under Knees Press Points Checked Yes By Pricilla Sue RN Outcomes Met? Yes Last Modified By: Pricilla Sue RN 06/09/24 08:54:49 Post-Care Text: The patient is free from signs and symptoms of injury related to positioning Transport To OR FTPM Pre-Care Text: Transports according to individual needs. Evaluates for signs and symptoms of skin and tissue injury as a result of transfer or transport Entry 1 Via Cart By Pricilla Sue RN Safety Precautions Safety Strap, Side Outcomes Met? Yes Rails Up Last Modified By: Pricilla Sue RN 06/09/24 08:54:53 Post-Care Text: The patient is free from signs and symptoms of injury related to transfer/transport Skin Prep FTPM Pre-Care Text: Performs skin preparations Entry 1 Procedure THORACIC EPIDURAL Prep Area BLOCK INJECTION SITE STEROID INJECTION(.) Prep Agents Chloraprep/Dry Prior to Start Dry Time 06/09/24 08:54:00 Draping Stop Dry Time 06/09/24 08:57:00 Hair Removal Methods Not Indicated By Yuliana Damon RN Outcomes Met? Yes Last Modified By: Pricilla Sue RN 06/09/24 08:55:06 Post-Care Text: The patient is free from signs and symptoms of infection Departure From OR FT Pre-Care Text: Transports according to individual needs. Evaluates for signs and symptoms of skin and tissue injury as a result of transfer or transport. Entry 1 Via Cart Safety Precautions Safety Strap, Side Rails Up PostOp Destination PACU Transported By Pricilla Sue RN Patient Status Stable Report Given Eugenia Hernandez RN To/Hand Off Communication Skin. Condition Dry, Intact Airway Maintenance Oxygen in Use? No Outcomes Met? Yes Last Modified By: Pricilla Sue RN 06/09/24 08:55:15 Post-Care Text: The patient is free from signs and symptoms of injury related to transfer/transport Dressing/Packing FTPM Pre-Care Text: Administers care to wound sites Entry 1 Type Dressing Site and Details 4x4 and opsite applied to site Outcomes Met? Yes Last Modified By: Pricilla Sue RN 06/09/24 08:55:29 Post-Care Text: The patient is free from signs and symptoms of infection Medication Administration FTPM Pre-Care Text: Verifies allergies, administers prescribed medications and solutions, administers prescribed antibiotic therapy and immunizing agents as ordered, evaluates response to medications Administers prescribed medications and solutions Entry 1 Route of Admin Block Expiration Date Yes Verified Ordered By Damián Estrada DO Transcribed/To Pricilla Sue RN Field By Administered By Damián Estrada DO Outcomes Met? Yes Last Modified By: Pricilla Sue RN 06/09/24 08:55:36 Post-Care Text: The patient received appropriate medication(s) safely administered during the perioperative period X-Rays & Images FTPM Pre-Care Text: Assess history of previous radiation exposure and implements protective measures Entry 1 X-Ray Type C-Arm Contrast Used? Yes Outcomes Met? Yes Last Modified By: Pricilla Sue RN 06/09/24 08:55:43 Post-Care Text: The patient is free from signs and symptoms of radiation injury Case Comments <None> Finalized By: Pricilla Sue RN Document Signatures Signed By: Pricilla Sue RN 06/09/24 09:06 MAIN OR PREOPERATIVE RECORD Observed: 8:45 AM Status: F Source: [facility] Main OR Preoperative Record Holding Area Document Type FTPM Summary Primary Physician: Damián Estrada DO Finalized Date/Time: 06/09/24 07:46:35 Pt. Name: MARY ABURTO/Sex: 1960 Male Med Rec #: [id number] Physician: Damián Estrada DO Financial #: [id number] Pt. Type: P Room/Bed: / Admit/Disch: 06/09/24 07:37:54 - Institution: Case Times Holding FTPM Pre-Care Text: Verifies consent for planned procedure, identifies individual values and wishes concerning care, includes family members in perioperative teaching Secures patient's records' belongings, and valuables, maintains patient's dignity and privacy, and maintains patient confidentiality Entry 1 In Holding 06/09/24 07:44:00 Outcomes Met? Yes Last Modified By: Jessa Moya RN 06/09/24 07:44:48 Post-Care Text: The patient participates in decisions affecting his or her perioperative plan of care The patient's right to privacy is maintained Surgery Checklist FTPM Entry 1 Patient Birthday, ID Band Procedure History and Physical, Identification: Check, Patient Verification: Surgical Consent, With Participation Patient NPO after Midnight: No Date/Time: 06/09/24 07:44:00 Results Reviewed 0300 cup of coffee Personal Items: Defibrilator, Glasses, Comments: Jewelry Personal Items Pt. wearing three Complaints of Pain: Yes Comment: rings, glasses and upper partial. Pain Comment: 08/07 neck pain Operative Site Yes Marking: Marked By: Dr. Estrada Location: T2-T3 Availability Equipment, X-Ray Verified: Does Patient Smoke No Patient states Yes Comment - Adult -Danielle postop adult Supervision supervision available Case Cancelled in No Holding Area see comments below for reason Last Modified By: Jessa Moya RN 06/09/24 07:46:33 Finalized By: Jessa Moya RN Document Signatures Signed By: Jessa Moya RN 06/09/24 07:46 MAIN OR PREOPERATIVE RECORD Observed: 8:45 AM Status: C Source: [facility] Main OR Preoperative Record Holding Area Document Type FTPM Summary Primary Physician: Damián Estrada DO Finalized Date/Time: 05/26/24 08:13:25 Pt. Name: MARY ABURTO/Sex: 1960 Male Med Rec #: [id number] Physician: Damián Estrada DO Financial #: [id number] Pt. Type: P Room/Bed: / Admit/Disch: 05/26/24 [...] No Patient states Yes Comment - Adult -Danielle postop adult Supervision supervision available Case Cancelled in No Case Cancelled Case cancelled due to Holding Area see Comment pt. taking Oxaprozin comments below for this morning. reason Last Modified By: Jessa Moya RN 05/26/24 08:13:24 Finalized By: Jessa Moya RN Document Signatures Signed By: Jessa Moya RN 05/26/24 07:45 Jessa Moya RN 05/26/24 08:13 OFFICE VISIT Observed: 05/19/2024 3:45 PM Status: COMPLETED Source: [facility] [id number] Mary Aburto 1959 [facility] Provider Department Center 05/19/2024 THEODORA LYNCH [facility] Family History Problem Relation Age of Onset Diabetes Mother Lung cancer Father Lung cancer Sister Family Status - Relation Status Age at Mother Father Sister Level of Service:16230 RI OFFICE/OUTPATIENT ESTABLISHED MOD MDM 30 MIN PROGRESS Observed: 05/19/2024 3:45 PM Status: COMPLETED Source: [facility] Cardiology - [facility] Subjective Maryconrado Aburto is a 64 y.o. year old [...] tablet, Take 1 tablet (40 mg) by mouth at bedtime., Disp: 90 tablet, Rfl: 3 baclofen (Lioresal) 20 mg tablet, TAKE 1 TABLET BY MOUTH 3 TIMES A DAY NEEDED WITHOUT REGARDS TO MEALS, Disp: , Rfl: metoprolol tartrate (Lopressor) 25 mg tablet, Take 1 tablet (25 mg) by mouth in the morning and at bedtime., Disp: 180 tablet, Rfl: 3 Recent Labs No visits with results within 6 Month(s) from this visit. Latest known visit with results is: [facility] Encounter on 01/21/2019 Component Date Value Ventricular Rate 01/21/2019 53 Atrial Rate 01/21/2019 53 RI Interval 01/21/2019 150 QRS DURATION 01/21/2019 90 QT Interval 01/21/2019 420 QTC CALCULATION(BEZET) 01/21/2019 394 P [place] 01/21/2019 33 R-[place] 01/21/2019 53 T Wave [place] 01/21/2019 66 Diagnosis 01/21/2019 Value:Sinus bradycardia Otherwise normal ECG When compared with ECG of 06-JUN-2015 12:52, No significant change was found Confirmed by Farheen Nguyen (77) on 01/21/2019 4:28:22 PM 07/09/2023 Hgb 16.2, plt 291 Cr 1.21, BUN 8, K 4.9, Na 140, eGFR >60, AST 13, ALT 15 Chol 125, trig 73, LDL 59.4, HDL 51 Labs 06/09/2022 CBC: Hemoglobin 15.6, platelets 272 CMP: Creatinine 1.11, BUN 12, K4.3, GFR greater than 60, ALT 12, AST 11 Lipids: Cholesterol 153, HDL 56, trig 110, LDL 75 BMP 03/25/2019: Within normal limits. Imaging and other tests Echocardiogram 04/24/2024: The left ventricular is normal in size with low normal systolic function. LVEF is estimated at 50 to 55%. Normal right ventricular size and systolic function. No significant valvular dysfunction. Mildly elevated right-sided pressures. Moderately dilated aortic root measuring 4.3 cm. Mildly dilated ascending aorta measuring 4.0 cm. Prior testing: ECHO 04/10/2023 CONCLUSION: 1. Normal ventricular function. LVEF is 60 to 65%. 2. No significant valvular dysfunction. 3. Normal right-sided pressures. 4. Mildly to moderately dilated aortic root [4.2 cm], mildly dilated ascending aorta [3.9 cm]. 5. No pericardial effusion. CTA chest 04/14/2022 1. Positive for small left-sided acute pulmonary emboli. No heart strain. 2. Groundglass opacities in the lung bases. Please correlate for pneumonia versus atelectasis 3. Ascending aorta is aneurysmal measuring 4 cm Echocardiogram 07/23/2018: Normal left ventricular function Right ventricular size and function are normal Normal chamber sizes No significant valve disease No pericardial effusion Echocardiogram 07/23/2018: Sinus rhythm with early repolarization Assessment/Plan Diagnoses and all orders for this visit: Coronary artery disease involving diomede coronary artery of diomede heart without angina pectoris - atorvastatin (Lipitor) 40 mg tablet; Take 1 tablet (40 mg) by mouth at bedtime. - metoprolol tartrate (Lopressor) 25 mg tablet; Take 1 tablet (25 mg) by mouth in the morning and at bedtime. - Lipid panel; Future Primary hypertension - CBC and differential; Future - Comprehensive metabolic panel; Future Mixed hyperlipidemia - atorvastatin (Lipitor) 40 mg tablet; Take 1 tablet (40 mg) by mouth at bedtime. - Lipid panel; Future Aneurysm of ascending aorta without rupture (CMS/HCC) - Transthoracic echo (TTE) complete; Future Palpitations 1. CAD: Cardiac catheterization in 2019 showed sluggish flow. Continue aspirin and statin therapy. 2. Hypertension: Controlled on the current metoprolol. Continue the same. I will check CBC and CMP. 3. Ascending aortic aneurysm: I reviewed the recent echocardiogram findings with him. The ascending aorta is measuring 4.3 cm at the root. This is slightly increased from last year. We will continue to monitor. Follow-up in 1 year with an echocardiogram. 3. Hyperlipidemia: I will check lipid profile. Continue current statin therapy. 4. Palpitations: At this time they are brief lived. We discussed halfway monitoring. I told him to let me know if the palpitations become more frequent or last longer and then we can order a event monitor. Otherwise I will plan on seeing him in follow-up in 1 year with an echocardiogram. Follow up in about 1 year (around 05/19/2025). Theodora Banks MD ALLERGIES DATE TYPE / CODE NAME / CODE REACTION SEVERITY SOURCE 12/20/2023 DRUG INGREDI/4195 03394(SNOMED CT) IBUPROFEN Other [facility] 02/12/2023 Drug Class/334434 003(SNOMED CT) SULFA (SULFONAMIDE ANTIBIOTICS) Other~Swelling [facility] 02/12/2023 Drug Class/525909 003(SNOMED CT) PENICILLINS Other~Rash~Swelli juan Barrientos [facility] /526551658 (SNOMED CT) penicillin [id number] [facility] /648205314 (SNOMED CT) sulfa drugs [id number] [facility] /604671286 (SNOMED CT) No Known Medication Allergies [facility] ENCOUNTERS ADMIT/DISCHARGE ACCOUNT NUMBER ADMITTING ENCOUNTER CLASS LOCATION SOURCE 11/12/2024/11/12/19 [id number] Ambulatory Building:NO [place] NB OPHT [facility] EPIC 09/16/2024/09/16/20 [id number] Luz Hernandes Ambulatory FTMCBuildin g:FT PMCRoom: DISCH [facility] 09/02/2024/09/02/20 [id number] Ambulatory Building: R NEURO [facility] EPIC 08/05/2024/08/05/20 24 [id number] Luz Hernandes Ambulatory FTMCBuildin g:FT PMCRoom: EX2 [facility] 07/15/2024/07/15/20 24 [id number] Ambulatory Marcini lding:BO Snideroo m: Exam 1 [facility] 06/25/2024/06/25/20 24 [id number] Luz Hernandes Ambulatory FTMCBuildin g:FT PMCRoom: DISCH [facility] 06/09/2024/06/09/20 24 [id number] Damián Estrada Ambulatory FTMCBuildin g:FT OPS [facility] 05/26/2024/05/26/20 24 [id number] Damián Estrada Ambulatory FTMCBuildin g:FT OPS [facility] 05/19/2024/05/19/20 24 [id number] Ambulatory Building:CC B [facility] PAYERS ENCOUNTER GUARANTOR PAYER SUBSCRIBER SOURCE 11/12/2024 MARY PURCELL: [id number] [facility] [place] [address]Dkf: (HP) Primary Insurance:HEALTHSCOPEPo licy Number: [id number] Date:2024-10-29 - 2024-10-29 DANIELLE Lopez COXDOB: [id number] [place] [address] [facility] EPIC 11/12/2024 Secondary Insurance:AETNA MEDICARE ADVANTAGEPolicy Number: [id number] Date:2024-10-29 MARY Portillo COXDOB: [id number] [place] [address] [facility] EPIC 09/16/2024 MARY Portillo COXDOB: WHITE STTel: ~(4 19 (HP) Primary Insurance:MEDICAREPolic y Number: [id number] Date:[id number] [place] [address]XW: MARY VALDEZ [facility] 09/02/2024 MARY Portillo COXDOB: [place] [address]Swi: (HP) Primary Insurance:HEALTHSCOPEPo licy Number: [id number] Date:2023-03-29 DANIELLE Lopez COXDOB: [id number] [place] [address] [facility] EPIC 09/02/2024 Secondary Insurance:MEDICAREPolic y Number: [id number] Date:0281-57-19Ipba Name:Medicare MARY ABURTODOB: [id number] [place] [address] [facility] EPIC 08/05/2024 MARY Portillo COXDOB: WHITE STTel: ~(4 19 (HP) Primary Insurance:Healthscope BenefitsPolicy Number: [id number] Date:1694-43-78XK [address] [place] [address]YY: DANIELLE VALDEZ [facility] 08/05/2024 Secondary Insurance:MEDICAREPolic y Number: [id number] Date:[id number], [place] [address]MQ: MARY VALDEZ [facility] 07/15/2024 MARY Portillo COXDOB: WHITE STTel: ~(4 19 (HP) Primary Insurance:Healthscope BenefitsPolicy Number: [id number] Date:6401-46-02TZ [address] [place] [address]UN: DANIELLEDARINEL VALDEZ [facility] 06/25/2024 MARY Portillo COXDOB: WHITE STTel: ~(4 19 (HP) Primary Insurance:Healthscope BenefitsPolicy Number: [id number] Date:4775-04-35OM [address] [place] [address]FU: DANIELLEDARINEL VALDEZ [facility] 06/25/2024 Secondary Insurance:MEDICAREPolic y Number: [id number] Date:6964-38-44[address] [address], [place] [address]JN: MARY VALDEZ [facility] 06/09/2024 MARY Portillo COXDOB: WHITE STTel: ~(4 19 (HP) Primary Insurance:Healthscope BenefitsPolicy Number: [id number] Date:2038-25-17GS [address] [place] [address]MG: DANIELLE VALDEZ [facility] 06/09/2024 Secondary Insurance:MEDICAREPolic y Number: [id number] Date:[id number] [address] [address]FX: MARY VALDEZ [facility] 05/26/2024 MARY PURCELL: [facility] Primary Insurance:[facility] BenefitsPolicy Number: [id number] Date:2167-35-34[address] [address], [place] [address]OR: DANIELLE VALDEZ [facility] 05/26/2024 Secondary Insurance:MEDICAREPolic y Number: [id number] Date:4183-46-46WJ [address] [address]Q, [place] [address]JZ: [facility] 05/19/2024 Primary Insurance:HARROLD HEALTHCAREPolicy Number: [id number] Date:2022-10-29 DANIELLE PURCELL: [id number] [place] [address] [facility]
--- OUTSIDE RECORDS SUMMARY | 2025-04-09 05:59 | XMS_ITS ---
Author Organization [facility] in [place] Address [address] [place] [address] Care Team Providers Care Taximeter Repairer Name Role Phone Baldemar Quintanilla Primary Care Provider REASON FOR VISIT refill Medications Medication SIG (Take, Route, Fr equency, Duration) Notes Start Date End Date Status Pregabalin 200 MG 1 capsule Orally twice daily 09/2025 Active Encounters Encounter Location Date Provider Diagnosis [facility] [address] [place] [address] 04/09/2025 Baldemar Quintanilla Cervical radicular pain M54.12 Assessments Encounter Date Diagnosis (ICD Code) Assessment Notes Treatment Notes Treatment Clinical Notes Section Notes 04/09/2025 Cervical radicular pain (ICD-10 - M54.12) Plan Of Treatment Medication Medication Name Sig Start Date Stop Date Notes Pregabalin 200 MG 1 capsule Orally twice daily 04/09/2025 Progress Notes * Fidencio ABURTO PDOB:1960 (65 yo M)Acc No.[id number]:04/09/2025 Patient: Manav Fidencio PORTILLO :1960 A ge:65 Y S ex:Male Address:[address] [place] [address], [phone] * Refills Refill Pregabalin Capsule, 200 MG, Orally, 60, 1 capsule, twice daily, Refills=3 * true * Date: Generated for Opal martinez/Hilda/eTransmitting on: 0 05/05/2025 01:07 PM EDT
--- OUTSIDE RECORDS SUMMARY | 2025-04-28 07:42 | XMS_ITS ---
Author Organization [facility] in [place] Address [address] [place] [address] Care Team Providers Care Horticultural Worker Name Role Phone Baldemar Quintanilla Primary Care Provider [phone] REASON FOR VISIT refill Medications Medication SIG (Take, Route, Fr equency, Duration) Notes Start Date End Date Status oxyCODONE HCl 5 MG 1 tablet Oral BID. D x M50.00 for 30 days 04/28/2025 Active Encounters Encounter Location Date Provider Diagnosis [facility] [address] [place] [address] 04/28/2025 Baldemar Quintanilla Benign essential HT N I10 Assessments Encounter Date Diagnosis (ICD Code) Assessment Notes Treatment Notes Treatment Clinical Notes Section Notes 04/28/2025 Benign essential HTN (ICD-10 - I10) Plan Of Treatment Medication Medication Name Sig Start Date Stop Date Notes oxyCODONE HCl 5 MG 1 tablet Oral BID. D x M50.00 for 30 days 04/28/2025 Progress Notes * Fidencio ABURTO PDOB:1960 (65 yo M)Acc No.[id number]:04/28/2025 Patient: Manav Fidencio PORTILLO :1960 A ge:65 Y S ex:Male Address:[address] [place] [address], [phone] * Refills Refill oxyCODONE HCl Tablet, 5 MG, Oral, 60, 1 tablet, BID. Dx M50.00, 30 days, Refills=0 * true * Date: Generated for Opal martinez/Hilda/Jorge on: 0 05/05/2025 01:07 PM EDT
--- NOTE | 2025-05-05 13:00 | CA_ITS ---
Patient Name: MARY ABURTO MR#: [id number] : 1960 Exam Date: 05/05/2025 Ordering Doctor: DR THEODORA EDWARDS M.D. ECHOCARDIOGRAM REPORT PROCEDURE: CA ECHO DOPPLER COMPLETE INDICATIONS: Aortic aneurysm, hypertension COMPARISON: None. DESCRIPTION: COMPLETE ECHOCARDIOGRAM Real-time transthoracic echocardiography with 2D, M-mode, spectral and color flow Doppler performed. QUALITY: Technical quality was good. LEFT VENTRICLE: Normal chamber size. Proximal septal hypertrophy (sigmoid septum). Mild concentric hypertrophy. Normal systolic function. LV EF: Normal left ventricular ejection fraction, (65%). DIASTOLIC: Diastolic function is indeterminate. ATRIAL SEPTUM: Visually appears intact. LEFT ATRIUM: Normal chamber size. RIGHT ATRIUM: Normal chamber size. RIGHT VENTRICLE: Normal chamber size. Normal systolic function. TRICUSPID VALVE: Normal mobility and thickness. No stenosis with no regurgitation. Unable to assess right-sided pressures due to lack of measurable tricuspid regurgitation. MITRAL VALVE: Normal mobility and thickness. No evidence of mitral valve stenosis. There is no mitral annular calcification. No mitral regurgitation. AORTIC VALVE: Normal trileaflet appearance. No visible sclerosis. Normal leaflet mobility. No evidence of aortic valve stenosis. Mild aortic regurgitation. AORTIC ROOT: Aortic root is moderately dilated (4.4 cm). Ascending aorta is moderately dilated. PULMONIC VALVE: Normal thickness and mobility. No stenosis. No regurgitation. PERICARDIUM: No evidence of pericardial effusion. IVC: Not well visualized. PLEURA: CONCLUSION: 1. Mild concentric left ventricular hypertrophy with normal systolic function. LVEF is estimated at 65%. 2. Normal right ventricular size and systolic function. 3. Mild aortic regurgitation. 4. Unable to assess right-sided pressures due to lack of measurable tricuspid regurgitation. 5. Moderately dilated aortic root [4.4 cm], and ascending aorta [4.3 cm]. Adult Echocardiography Procedure Report Left Ventricle LVEDD (3.7 - 5.6 cm): 3.72 cm LVESD (2.2 - 4.0 cm): 2.46 cm LVIVS thickness (0.6 - 1.2 cm): 1.39 cm LVPW thickness (0.5 - 1.0 cm): 0.96 cm e': 0.08 m/s E - e': 8.74 LVOT Max Gradient: 3.06 mm[Hg] LVOT Area (cm2): 0.88 m/s Peak Velocity (LVOT): 0.88 m/s Mean Velocity (LVOT): 0.58 m/s LVOT Diameter 2.50 cm Left Atrium LA Volume Index (2D A2C): 19.05 ml/m2 Left Atrium Systolic Dimension: 3.22 cm Mitral Valve MV E to A Ratio: 1 Mitral Valve A-Wave Peak Velocity: 0.72 m/s Mitral Valve E-Wave Peak Velocity: 0.72 m/s Right Ventricle Aorta AO Root Diam: 4.32 cm Ascending Ao Diam: 4.30 cm Aortic Valve AoV Area (Peak Brandon): 4.50 cm2, 4.50 cm2 AoV Area (VTI): 5.29 cm2, 5.29 cm2 Peak Velocity(Antegrade Flow): 0.95 m/s Peak Gradient(Antegrade Flow): 3.63 mm[Hg] Mean Velocity(Antegrade Flow): 0.65 m/s Mean Gradient(Antegrade Flow): 1.88 mm[Hg] Velocity Time Integral: 19.40 cm Tricuspid Valve Pulmonic Valve Peak Velocity: 0.62 m/s Peak Gradient: 1.56 mm[Hg] Right Atrium Right Atrium Systolic Pressure: 44.94 ml, 44.94 ml Dictated by: Theodora Edwards M.D. on 05/05/2025 at 17:21 Approved by: Theodora Edwards M.D. on 05/05/2025 at 17:27
--- OUTSIDE RECORDS SUMMARY | 2025-05-05 13:08 | XMS_ITS | Patient Health Record ---
Author Organization [facility] in [place] Address [address] [place] [address] Care Team Providers Care Supervisor Cartography Name Role Phone Baldemar Quintanilla Primary Care Provider Allergies Allergen (clinical drug ingredient) Drug/Non Drug Allergy documented on EMR Reaction Allergy Type Onset Date Status Substance with sulfonamide structure and antibacterial mechanism of action (substance) Sulfa Antibiotics anaphylaxis Drug Allergy Active Penicillin rash Drug Allergy Active Results Component Value Reference Range Notes CBC AUTO DIFF Reviewed date:06/08/2024 10:03:30 AM Interpretation: Performing Lab: Notes/Report: [facility] , White Blood Count 11.8 4.0-11.0 10 3/uL Red Blood Count 3.96 4.70-6.10 10 6/uL Hemoglobin 12.7 14.0-18.0 g/dL Hematocrit 38.4 42.0-54.0 % Mean Corpuscular Volume 97.0 80.0-94.0 fL Mean Corpuscular Hemoglobin 32.1 25.9-34.0 pg Mean Corpuscular HGB Conc 33.1 29.9-35.2 g/dL Red Cell Distribution Width 13.0 11.0-15.0 % Platelet Count 313 150-450 10 3/uL Mean Platelet Volume 8.9 9.5-13.5 fL Neutrophils Percent Auto 63.9 43.0-75.0 % Lymphocytes Percent Auto 20.7 20.5-60.0 % Monocytes Percent Auto 9.2 1.7-12.0 % Eosinophils Percent Auto 5.3 0.9-7.0 % Basophils Percent Auto 0.5 0.2-2.0 % Immature Granulocytes Pct Auto 0.4 0.0-0.5 % Neutrophils Absolute Auto 7.5 1.4-6.5 10 3/uL Lymphocytes Absolute Auto 2.4 1.2-3.8 10 3/uL Monocytes Absolute Auto 1.1 0.3-0.8 10 3/uL Eosinophils Absolute Auto 0.6 0.0-0.7 10 3/uL Basophils Absolute Auto 0.1 0.0-0.1 10 3/uL Immature Granulocytes Abs Auto 0.05 0.00-0.03 10 3/uL Performing Lab: see note ML - [facility] CBC AUTO DIFF Reviewed date:01/04/2025 12:00:07 PM Interpretation: Performing Lab: Notes/Report: [facility] , White Blood Count 6.3 4.0-11.0 10 3/uL Red Blood Count 4.04 4.70-6.10 10 6/uL Hemoglobin 13.4 14.0-18.0 g/dL Hematocrit 38.3 42.0-54.0 % Mean Corpuscular Volume 94.8 80.0-94.0 fL Mean Corpuscular Hemoglobin 33.2 25.9-34.0 pg Mean Corpuscular HGB Conc 35.0 29.9-35.2 g/dL Red Cell Distribution Width 13.9 11.0-15.0 % Platelet Count 219 150-450 10 3/uL Mean Platelet Volume 9.3 9.5-13.5 fL Performing Lab: see note ML - [facility] INFLUENZA A AND B AG Reviewed date:01/04/2025 12:00:07 PM Interpretation: Performing Lab: Notes/Report: [facility] , Influenza Virus A Antigen Negative below the detection limit of the test. Negative for Flu A protein antigen. Infection due to Flu A cannot be ruled out. Flu A antigen in the sample may be Influenza Virus B Antigen Negative below the detection limit of the test. Negative for Flu B protein antigen. Infection due to Flu B cannot be ruled out. Flu B antigen in the sample may be Performing Lab: see note ML - [facility] LB PROF CHEM 8 (BAS METB) Reviewed date:01/04/2025 12:00:07 PM Interpretation: Performing Lab: Notes/Report: [facility] , Sodium 136 136-145 mmol/L Potassium 4.3 3.5-5.1 mmol/L Chloride 103 98-107 mmol/L Carbon Dioxide 25.5 21.0-32.0 mmol/L Anion Gap 11.8 Glucose 125 74-106 mg/dL Blood Urea Nitrogen 9.0 7.0-18.0 mg/dL Creatinine 1.22 0.70-1.30 mg/dL Estimated GFR ( Merly >60 >=60 mL/min/1.73m 2 Estimated GFR (Non- Elba >60 >=60 mL/min/1.73m 2 BUN Creatinine Ratio 7.4 Calcium 8.9 8.5-10.1 mg/dL Performing Lab: see note - [facility] LB Manual Differential Reviewed date:01/04/2025 12:00:07 PM Interpretation: Performing Lab: Notes/Report: [facility] , Segmented Neutrophils % Manual 76.0 43.0-75.0 Lymphocytes Percent Manual 8.0 20.5-60.0 % Monocytes Percent Manual 14.0 1.7-12.0 % Eosinophils Percent Manual 1.0 0.9-7.0 % Basophils Percent Manual 1.0 0.2-2.0 % Segmented Neut Absolute Manual 4.78 1.4-6.5 10 3/uL Lymphocytes Absolute Manual 0.50 1.20-3.80 10 3/uL Monocytes Absolute Manual 0.88 0.30-0.80 10 3/uL Eosinophils Absolute Manual 0.06 0.00-0.70 10 3/uL Basophils Abs Manual 0.06 0.00-0.10 1 0 3/uL Anisocytosis 1+ Ovalocytes 1+ Performing Lab: see note ML - [facility] LB Troponin I High Sensitivity Reviewed date:01/04/2025 12:00:07 PM Interpretation: Performing Lab: Notes/Report: [facility] , Troponin I High Sensitivity <4.0 4.0-76.1 pg/mL UNIVERSAL DEFINITION OF MYOCARDIAL INFARCTION. THE UPPER HAS BEEN CONFIRMED THE DECISION THRESHOLD FOR [place] WITH OTHER DIAGNOSTIC AND CLINICAL INFORMATION. PERCENTILE OF cTnI DISTRIBUTION IN A REFERENCE POPULATION, 99TH PERCENTILE = 76.2 PG/ML NOTE: HIGH-SENSITIVITY TROPONIN ASSAY IS NOT INTENDED TO BE CUT-OFF POINTS HAVE BEEN ESTABLISHED BASED ON THE FOURTH REFERENCE LIMIT (URL) OF TROPONIN, DEFINED THE 99TH DIAGNOSIS. USED IN ISOLATION BUT SHOULD BE INTERPRETED IN CONJUNCTION Performing Lab: see note ML - [facility] LB SARS-CoV-2 Ag* Reviewed date:01/04/2025 12:00:07 PM Interpretation: Performing Lab: Notes/Report: [facility] , SARS-CoV-2 Ag NEGATIVE NEGATIVE terminated or authorization is revoked sooner. emergency use of in vitro diagnostic tests for detection viruses or pathogens. The emergency use of this test is complexity testing. This test has been authorized only for This test has not been FDA cleared or approved, but has been the detection of proteins from SARS-CoV-2, not for any other (EUA) for use by authorized laboratories certified under CLIA that meet the requirements to perform moderate or high and/or diagnosis of Covid-19 under section 564(b)(1) of the authorized for the duration of the declaration that Act, 21 U.S.C. 360bbb-3(b)(1), unless the declaration is authorized by the FDA under an Emergency Use Authorization circumstances exist justifying the authorization of Performing Lab: see note ML - [facility] LB ECG 12 lead Reviewed date:01/05/2025 01:58:52 PM Interpretation: Performing Lab: Notes/Report: Source Facility: [facility] [place] [address] [place] [address] Electrocardiograph Report Signed Patient: MARY ABURTO MR#: [id number] : 1960 Acct:[id number] Age/Sex: 64 / M ADM Date: 01/04/25 Loc: ER Attending Dr: Ordering Physician: Tye Robin M.D. Date of Service: 01/04/25 Procedure(s): ECG 12 lead Accession Number(s): [id number] cc: [facility] Test Date: 2025-01-04 Pat Name: MARY ABURTO Department: Room: - Gender: Male Charter Coordinator: : 1960 Requested By: 1030 Order Number: [id number] Reading MD: THEODORA BANKS M.D. Measurements Intervals [place] Rate: 104 P: 60 [place]: 148 QRS: 80 QRSD: 84 T: 70 QT: 326 QTc: 386 Interpretive Statements 1120 Sinus tachycardia Otherwise normal ECG Compared to ECG 11/13/2022 18:25:47 No significant changes Electronically Signed On 01-04-2025 15:59:02 EDT by THEODORA BANKS M.D. Dictated By: THOEDORA BANKS Signed By: 01/04/25 1559 DD/ 1048 TD/TT: Slasher Runner: [place] [address] Electrocardiograph Report Signed Patient: MARY ABURTO MR#: [id number] : 1960 Acct:[id number] Age/Sex: 64 / M ADM Date: 01/04/25 Loc: ER Attending Dr: Ordering Physician: Tye Robin M.D. Date of Service: 01/04/25 Procedure(s): ECG 12 lead Accession Number(s): [id number] cc: [facility] Test Date: 2025-01-04 Pat Name: MARY ABURTO Department: 81 Room: - Gender: Male Charter Coordinator: : 1960 Requ ested By: 1030 Order Number: [id number] Reading MD: THEODORA BANKS M.D. Measurements Intervals [place] Rate: 104 P: 60 [place]: 148 QRS: 80 QRSD: 84 T: 70 QT: 326 QTc: 386 Interpretive Statements 1120 Sinus tachycardia Otherwise normal ECG Compared to ECG 11/13/2022 18:25:47 No significant changes Electronically Carla d On 01-04-2025 15:59:02 EDT by THEOODRA BANKS M.D. Dictated By: THEODORA BANKS Signed By: 01/04/25 1559 DD/ 1048 TD/TT: Slasher Runner: PROF [place]de(COMP METB) Reviewed date:06/08/2024 10:03:30 AM Interpretation: Performing Lab: Notes/Report: [facility] , Sodium 139 136-145 mmol/L Potassium 4.5 3.5-5.1 mmol/L Chloride 105 98-107 mmol/L Carbon Dioxide 26.0 21.0-32.0 mmol/L Anion Gap 12.5 Glucose 116 74-106 mg/dL Blood Urea Nitrogen 12.0 7.0-18.0 mg/dL Creatinine 1.20 0.70-1.30 mg/dL Estimated GFR ( Merly >60 >=60 Estimated GFR (Non- Elba >60 >=60 BUN Creatinine Ratio 10.0 Calcium 8.9 8.5-10.1 mg/dL Bilirubin Total 0.3 0.2-1.0 mg/dL Aspartate Amino Transferase 12 15-37 U/L Alanine Aminotransferase 15 16-63 U/L Alkaline Phosphatase 95 46-116 U/L Total Protein 6.4 6.4-8.2 g/dL Albumin Level 3.2 3.4-5.0 g/dL Globulin 3.2 Albumin Globulin Ratio 1.0 Performing Lab: see note ML - [facility] LB LIPID PROFILE Reviewed date:06/08/2024 10:03:30 AM Interpretation: Performing Lab: Notes/Report: [facility] , Triglycerides 138 <=150 mg/dL Cholesterol 139 <=200 mg/dL HDL Cholesterol 49 40-60 mg/dL > or =60 mg/dl - LOW CARDIOVASCULAR RISK <40 mg/dl - HIGH CARDIOVASCULAR RISK LDL Cholesterol Calculated 62.4 160-189 mg/dl HIGH <100 mg/dl OPTIMAL >190 mg/dl VERY HIGH 100-129 mg/dl NEAR OR ABOVE OPTIMAL 130-159 mg/dl BORDERLINE HIGH VLDL CHOLESTEROL 27.6 Chol HDL Ratio 2.8 7.1 - 11.0 MODERATE RISK >11.0 HIGH RISK 3.3 - 4.4 LOW RISK 4.4 - 7.1 AVERAGE RISK Performing Lab: see note ML - [facility] LB Reason For Referral Diagnosis 1 Nevus (D22.9) Referral Organization [facility] Referring Provider First Name Baldemar Referring Provider Last Name Saleemmarisel Referring Provider Speciality Family Med sulema Referred Provider Henrique Koch Referred Provider Specialty General Surg rosy Referral Priority Routine Medications Medication SIG (Take, Route, Frequency, Duration) Notes Start Date End Date Status Metoprolol Tartrate 25 MG TAKE 1 TABLET BY MOUTH TWICE A DAY WITH FOOD for 30 Active Oxaprozin 600 MG TAKE 2 TABLETS BY MO UT EVERY MORNING for 30 Active oxyCODONE HCl 5 MG 1 tablet Oral BID. D x M50.00 for 30 days 04/28/2025 Active traZODone HCl 100 MG TAKE 1 AND 1/2 TABL ETS BY MOUTH EVERY NIGHT for 30 Active Pregabalin 200 MG 1 capsule Orally twi ce daily 04/09/2025 Active Baclofen 20 MG TAKE 1 TABLET BY ISABELLE TH 3 TIMES A DAY NEEDED WITHOUT REGARDS TO MEALS for 90 Active Phenytoin Sodium Extended 100 MG TAKE 3 CAPSULES BY MOUTH EVERY 12 HOURS for 90 Active Aspirin 81 81 MG 1 tablet Orally Once a day Active Ventolin HFA 108 (90 Base) MCG/ACT 2 puff as needed Inhalation every 4 hrs 11/27/2024 Active Atorvastatin Calcium 40 MG TAKE 1 TABLET BY MOUTH EVERY DAY for 90 days Active Levothyroxine Sodium 75 MCG TAKE 1 TABLE T BY MOUTH EVERY DAY IN THE MORNING ON AN EMPTY STOMACH FOR 30 DAYS for 90 Active DULoxetine HCl 60 MG 1 capsule Orally On ce a day for 90 days Active Social History Tobacco Use: Social History Observation Description Date Details (start date - stop date) Former Smoker 10/29/1979 - 10/29/2019 Tobacco Use/Smoking Question Answer Notes Patient is a former smoker When did you start smoking? 10/29/1979 When did you stop smoking? 10/29/2019 Alcohol Screen (Audit-C) Question Answer Notes Did you have a drink containing alcohol in the p ast year? No Points 0 Interpretation Negative AUDIT-C (Standard) Question Answer Notes Did you have a drink containing alcohol in the p ast year? No Points 0 Interpretation Negative Problems Problem Type SNOMED Code ICD Code Onset Dates Problem Status W/U Status Risk Notes Problem Dyslipidemia (823227514) Dyslipidemia (E78.5) Active confirmed Problem Stroke (235158645) Stroke (I63.9) Active confir med Problem Essential hypertension (97588898) Benign essential HTN (I10) Active confirmed Problem Cervical radiculopathy (68191811) Cervical radicular pain (M54.12) Active confirmed Problem Diverticular disease (557512506) Diverticular disease (K57.90) Active confirmed Problem Acute bronchiolitis (2690702) Acute bronchiolitis (J21.9) Active confirmed Problem Hemiplegia affecting right nondominant side (G81.93) Active confirmed Problem 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) Cervical disc disease with myelopathy (M50.00) Active confirmed Problem Myocardial infarct (62211718) Myocardial infarct (I21.9) Active confirmed Vital Signs Blood pressure diastolic 82 mm Hg 01/14/2025 Height 68 in 01/14/2025 Blood pressure systolic 118 mm Hg 01/14/2025 Weight 148 lbs 01/14/2025 BMI 22.5 kg/m2 01/14/2025 Encounters Encounter Location Date Provider Diagnosis [facility] [address] [facility] [place] [address] 11/27/2024 Baldemar Hoy Cervical radicular p ain M54.12 [facility] [address] [place] [address] 01/14/2025 Baldemar Hoy Acute bronchitis, unspecified organism J20.9 [facility] [address] [place] [address] 06/13/2024 Baldemar Hoy Benign essential HTN I10 ; Cervical disc disease with myelopathy M50.00 ; Hemiplegia affecting right nondominant side G81.93 ; Myocardial infarct I21.9 and Nevus D22.9 [facility] [address] [facility] [place] [address] 04/28/2025 Baldemar Hoy Benign essential HT N I10 [facility] [address] [facility] [place] [address] 01/30/2025 Baldemar Hoy Benign essential HTN I10 [facility] [address] [facility] [place] [address] 02/27/2025 Baldemar Hoy Benign essential HT N I10 [facility] [address] [facility] [place] [address] 03/05/2025 Baldemar Hoy Acute bronchitis, unspecified organism J20.9 and Cervical radicular pain M54.12 [facility] [address] [facility] [place] [address] 03/30/2025 Baldemar Hoy Benign essential HTN I10 [facility] [address] [facility] [place] [address] 04/09/2025 Baldemar Hoy Cervical radicular pain M54.12 [facility] [address] [facility] [place] [address] 04/22/2025 Baldemar Hoy Wellness examination Z01.89 ; Benign essential HTN I10 ; Other fatigue R53.83 ; Dyslipidemia E78.5 ; Screening for colon cancer Z12.11 and Screening for prostate cancer Z12.5 [facility] [address] [place] [address] 09/08/2024 Baldemar Hoy Benign essential HT N I10 [facility] [address] [place] [address] 10/03/2024 Baldemar Hoy Benign essential HT N I10 [facility] [address] [place] [address] 11/03/2024 Baldemar Hoy Benign essential HT N I10 [facility] [address] [facility] [place] [address] 12/01/2024 Baldemar Hoy Benign essential HTN I10 [facility] [address] [facility] [place] [address] 01/01/2025 Baldemar Hoy Benign essential HT N I10 [facility] [address] [facility] [place] [address] 01/16/2025 Baldemar Hoy [facility] [address] [facility] [address] 06/06/2024 Baldemar Hoy [facility] [address] [facility] [place] [address] 06/23/2024 Baldemar Hoy [facility] [address] [facility] [address] 06/23/2024 Baldemar Hoy Benign essential HTN I10 [facility] [address] [place] [address] 06/27/2024 Baldemar Hoy [facility] [address] [facility] [address] 07/14/2024 Baldemar Hoy Benign essential HTN I10 [facility] [address] [place] [address] 08/11/2024 Baldemar Hoy Benign essential HT N I10 [facility] [address] [facility] [place] [address] 05/15/2024 Baldemar Hoy Cervical radicular pain M54.12 Assessments Encounter Date Diagnosis (ICD Code) Assessment Notes Treatment Notes Treatment Clinical Notes Section Notes 05/15/2024 Cervical radicular pain (ICD-10 - M54.12) 06/23/2024 Benign essential HTN (ICD-10 - I10) 07/14/2024 Benign essential HTN (ICD-10 - I10) 08/11/2024 Benign essential HTN (ICD-10 - I10) 09/08/2024 Benign essential HTN (ICD-10 - I10) 10/03/2024 Benign essential HTN (ICD-10 - I10) 11/03/2024 Benign essential HTN (ICD-10 - I10) 12/01/2024 Benign essential HTN (ICD-10 - I10) 01/01/2025 Benign essential HTN (ICD-10 - I10) 01/30/2025 Benign essential HTN (ICD-10 - I10) 02/27/2025 Benign essential HTN (ICD-10 - I10) 03/05/2025 Acute bronchitis, unspecified organism (ICD-10 - J20.9) 06/13/2024 Benign essential HTN (ICD-10 - I10) 11/27/2024 Cervical radicular pain (ICD-10 - M54.12) 01/14/2025 Acute bronchitis, unspecified organism (ICD-10 - J20.9) Rest and drink more liquids, especially water. You may use a humidifier or vaporizer to help keep the drainage moist. Riqt-oen-oefjhgm Nasal Saline may help the stuffy and runny nose. Use Ibuprofen and or Tylenol as needed for fever, chills, body aches or pain. Children 5 years old should not be given thbk-syn-njojorh cough and cold medications such as guaifenesin and dextromethorphan. If you're over age 5, you may try hrja-iop-rkgdfdb cold medications such as guaifenesin and dextromethorphan, or multi-symptom cold reliever such as Dayquil to help reduce the symptoms. Antibiotics have been prescribed. You should take these until completed and follow the directions. Antibiotics can sometimes cause upset stomach, and in rare cases, serious allergic reactions or serious gastrointestinal problems. If you start having severe abdominal pain, severe vomiting, or bloody diarrhea, you should be reevaluated by your physician or urgent care immediately. Follow up with your Primary Care Provider or return to clinic if symptoms do not improve within 3-5 days. If you develop severe symptoms such as shortness of breath, repeated vomiting, coughing up blood, or chest pain you should go to the emergency room or call 911 03/30/2025 Benign essential HTN (ICD-10 - I10) 04/09/2025 Cervical radicular pain (ICD-10 - M54.12) 06/13/2024 Cervical disc disease with myelopathy (ICD-10 - M50.00) 04/22/2025 Wellness examination (ICD-10 - Z01.89) 04/28/2025 Benign essential HTN (ICD-10 - I10) 06/13/2024 Hemiplegia affecting right nondominant side (ICD-10 - G81.93) 04/22/2025 Benign essential HTN (ICD-10 - I10) 03/05/2025 Cervical radicular pain (ICD-10 - M54.12) 06/13/2024 Myocardial infarct (ICD-10 - I21.9) 04/22/2025 Other fatigue (ICD-10 - R53.83) 04/22/2025 Dyslipidemia (ICD-10 - E78.5) 06/13/2024 Nevus (ICD-10 - D22.9) 04/22/2025 Screening for colon cancer (ICD-10 - Z12.11) 04/22/2025 Screening for prostate cancer (ICD-10 - Z12.5) Plan Of Treatment Pending Test Test Name Order Date CMP (COMPLETE METABOLIC PANEL) PSA, PROSTATE-SPECIFIC ANTIGEN T3 FREE, T4 FREE and TSH 06/18/2023 FECAL OCCULT BLOOD 04/22/2025 OCCULT BLOOD 06/18/2023 CMP - Comprehensive Metabolic Panel 03/30 CBC AUTO DIFF 06/18/2023 CBC AUTO DIFF 04/22/2025 GLYCOHEMOGLOBIN A1C 04/22/2025 GLYCOHEMOGLOBIN A1C 06/18/2023 LIPID PROFILE 06/18/2023 LIPID PROFILE 04/22/2025 THYROID PANEL (T4/TSH/FREE T3) PSA, SCREENING 04/22/2025 Insurance Providers Payer Name Payer Address Payer Phone Subscriber Number Group Number Insured Name Patient Relationship to Insured Coverage Start Date Coverage End Date [employer] MED[employer]ARE [address] DYLON GRAFF [id number] Mary Aburto Self - patient is the insured Medications Administered Medication Instructions Date of Administration Dosage Notes Kenalog-40 09/26/2023 120 mg Ketorolac Tromethamine 09/26/2023 60 mg Ketorolac Tromethamine 01/14/2025 60 mg Orphenadrine Citrate 09/26/2023 60 mg Triamcinolone 40 mg/ml 01/14/2025 120 mg Medical (General) History Medical History History ICD Code 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
== END 2025-05-05 13:05 | disposition home or self-care (01) ==
LOC: CARD 13:05
PROVIDERS: PCP Family Medicine; Visit Provider Internal Medicine Interventional Cardiology
DX: I71.21 Aneurysm of the ascending aorta, without rupture (principal)
CPT/HCPCS: 93306

== ENCOUNTER 2025-06-13 10:37 | Outpatient (OUT) | payer MEDICARE, SELFPAY ==
--- OUTSIDE RECORDS SUMMARY | 2025-06-13 10:42 | XMS_ITS | CCD ---
Author Organization [facility] Care Team Providers Care Drapery Hand Name Role Phone UNKNOWN, PROVIDER Admitting Unavailable UNKNOWN, PROVIDER Attending Unavailable YURY LARA Referring Unavailable YURY LARA Primary Care Unavailable MD Yury Lara Primary Care Provider [phone] MD Yury Lara Attending Provider [phone] Anesthesiologist, Temporary Attending Provider U MD Yury Bates Referring Provider [phone] [facility]- Laura Del Castillo Emergency Provider [phone] MD Antwon Hastings Admit Provider MD Antwon Hastings Attending Provider Antwon Hastings Unavailable Lele Fong Unavailable MD Yury Lara Primary Care Provider [phone] MD Yury Lara Primary Care Provider [phone] MD Antwon Hastings Attending Provider [phone] MD Yury Lara Primary Care Provider [phone] MD Antwon Hastings Attending Provider [phone] Dr. Rigo Hughes Attending Unava ilable DR [...] Unavailable HOY ., DR HADDAD Consulting Unavailable [place], DR SAMANTA Millan Consulting Unavailable HOY ., [...] Unavailable MD Yury Lara Primary Care Provider [phone] MD Antwon Hastings Attending Provider [phone] MD Antwon Hastings Admit Provider MD Yury Lara Primary Care Provider [phone] MD Antwon Hastings Attending Provider [phone] Yury Lara Primary Care Physician MD Yury Lara Primary Care Provider [phone] MD Antwon Hastings Attending Provider [phone] Yury Lara Primary Care Unavailable Antwon Hastings Attending Unavailable Antwon Hastings Admitting Unavailable Antwon Hastings Admitting Unavailable Yury Lara Primary Care Unavailable Antwon Hastings Attending Unavailable Yury Lara Primary Care Unavailable Antwon Hastings Attending Unavailable Antwon Hastings Admitting Unavailable THEODORA EDWARDS Attending Unavailable KENNEDI MICHELLE Attending Unavailable Yury Lara MD Primary Care Provider [phone] DEVIKA CHAMPAGNE Attending Unavailable RAYNE BERRY [...] (1 source) penicillAMINE Drug Allergy 04-10-20 24 [facility] Penicillins (antibiotic) (1 source) Penicillins Drug Allergy 02-13-20 23 [facility] Sulfonamides (antibiotic) (2 sources) Sulfonamides (Antibiotic); Translations: [sulfacetamide] Drug Allergy 02-13-20 23 [facility] Sulfur (1 source) Sulfur Drug Allergy 04-10-20 24 [facility] (3 sources) Ibuprofen; Translations: [IBUPROFEN] Drug Allergy 09-26-20 16 [facility] Rep[facility] (15 sources) Penicillins; Translations: [PENICILLINS] Drug allergy (disorder) 09-08-20 09 [facility] (15 sources) Sulfonamides (Antibiotic); Translations: [SULFA (SULFONAMIDE ANTIBIOTICS)] Drug allergy (disorder) 03-18-20 13 Swelling [facility] (20 sources) penicillAMINE Drug Allergy 04-10-20 24 Unknown, Unknown Reaction [facility] (20 sources) Sulfacetamide / Sulfur Drug Allergy Unknown [facility] Other (13 sources) Penicillin; Translations: [penicillin] Drug Allergy Eruption of skin (disorder) [facility] [place] (13 sources) Sulfonamides (Antibiotic); Translations: [sulfa drugs] Drug allergy Eruption of skin (disorder) [facility] [place] (2 sources) Sulfacetamide Drug Allergy 04-10-20 Unknown Reaction [facility] (2 sources) Sulfur Drug Allergy 04-10-20 Unknown Reaction [facility] (1 source) Penicillins Propensity to adverse reactions 11-12-19 [facility] (1 source) Sulfonamides (Antibiotic) Propensity to adverse reactions 11-12-19 [facility] (1 source) No Known Medication Allergies; Translations: [No Known Medication Allergies] Propensity to adverse reactions (disorder) [facility] Repository Medications Current Medications Medication [...] Date: 09/10/19 Status: Ordered Phenytoin Sodium Active Mnevqrbglmr-Tabrwipc-Wbxolfl ac 1-0.5-0.075 % solution (2 sources) Start: 11-12-2024 Dhoyhzbmnoq-Yclmpwta-Uwlznor ac 1-0.5-0.075 % solution Indications: Age-related nuclear [...] day(s), # 60 cap(s), Refills(s) 2, Pharmacy: [facility]/pharmacy #[id number], 172.7, cm, 08/05/24 8:27:00 EDT, Height/Length Dosing, 65.9, kg, 08/05/24 8:27:00 EDT, Weight Dosing Start Date: 08/26/24 Stop Date: 11/24/24 Status: Ordered Start: 08-05-2024 End: 08-25-2024 take 1 capsule by mouth twice daily pregabalin 50 mg Cap 50 mg = 1 cap(s), Oral, BID, X 20 day(s), # 40 cap(s), Refills(s) 0, Pharmacy: [facility]/pharmacy #[id number], 172.7, cm, 08/05/24 8:27:00 EDT, Height/Length Dosing, 65.9, kg, 08/05/24 8:27:00 EDT, Weight Dosing Start Date: 08/05/24 Stop Date: 08/25/24 Status: Ordered Start: 06-25-2024 take 1 capsule by mo uth twice daily pregabalin 150 mg Cap 150 mg = 1 cap(s), Oral, BID, # 60 cap(s), Refills(s) 1, Pharmacy: [facility]/pharmacy #[id number], 178, cm, 06/25/24 8:51:00 EDT, Height/Length [...] disease (2 sources) Atherosclerotic heart disease of [place] coronary artery without angina pectoris; Translations: [Atherosclerotic heart disease of [place] coronary artery without angina pectoris] Onset: 05-19-2024 [...] Resolved: 02-23-2022 Episodic Other aftercare (2 sources) 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 Calculation made for both eyes (OU). [facility] Radiology Study observation (narrative) [facility] EMG 1 Extremeityon 4 C8 radiculopathy on the right, severe, worse C5 radiculopathy on the right, moderate, unchanged [facility] NVC 5-6 Nerveson 09-02-2024 C8 radiculopathy on the right, severe, worse C5 radiculopathy on the right, moderate, unchanged [facility] Ambulatory Visit Summaryon 0 07-15-2024 [...] for choosing us for your care. Normal [facility] Main OR Intraoperative Recor don 06-09-2024 Main OR Intraoperative Record Main OR Intraoperative Record IntraOp Document Type FTPM Summary Primary Physician: Damián Estrada DO Finalized Date/Time: 06/09/24 09:06:20 Pt. Name: MARY ABURTO/Sex: 1960 Male Med Rec #: [id number] Physician: Damián Estrada DO Financial #: [id number] Pt. Type: P Room/Bed: / Admit/Disch: 06/09/24 [...] Boo RN Role Performed Surgeon - Primary Credit Union Teller - Primary Scrub - Primary Time In 06/09/24 08:54:00 06/09/24 08:54:00 06/09/24 08:54:00 Time Out 06/09/24 09:06:00 06/09/24 09:06:00 06/09/24 09:06:00 Procedure THORACIC EPIDURAL THORACIC EPIDURAL THORACIC EPIDURAL STEROID INJECTION(.) STEROID INJECTION(.) STEROID INJECTION(.) Comments Last Modified By: Vikram POLK, Pricilla Sue RN, Pricilla Justin RN 06/09/24 09:05:59 06/09/24 09:05:59 06/09/24 09:05:59 Entry 4 Case Attendee Lele Evans Role Performed Washroom Cleaner Time In 06/09/24 08:54:00 Time Out 06/09/24 [...] and tissue Entry 1 Skin Integrity Intact, [place], Warm, & Skin Abnormality No Dry Outcomes [...] By Toshia (more content not included)... Normal [facility] Main OR Preoperative Recordo n 06-09-2024 Main OR Preoperative Record Main OR Preoperative Record Holding Area Document Type FTPM Summary Primary Physician: Damián Estrada DO Finalized Date/Time: 06/09/24 07:46:35 Pt. Name: MARY ABURTO/Sex: 1960 Male Med Rec #: [id number] Physician: Damián Estrada DO Financial #: [id number] Pt. Type: P Room/Bed: / Admit/Disch: 06/09/24 [...] By: Jessa Moya RN 06/09/24 07:46 Normal [facility] Main OR Preoperative Recordo n 05-26-2024 Main OR Preoperative Record Main OR Preoperative Record Holding Area Document Type FTPM Summary Primary Physician: Damián Estrada DO Finalized Date/Time: 05/26/24 08:13:25 Pt. Name: MARY ABURTO D.O.B./Sex: 1960 Male Med Rec #: [id number] Physician: Damián Estrada DO Financial #: [id number] Pt. Type: P Room/Bed: / Admit/Disch: 05/26/24 [...] 07:45 Jessa Moya RN 05/26/24 08:13 Normal [facility] Office Visiton 05-19-2024 Follow-up visit [id number] Mary Aburto Bandar 1960 M Date Provider Department Center 05/19/2024 THEODORA LYNCH FADY [facility] Family History Problem Relation Age of Onset Diabetes Mother Lung cancer Father Lung cancer Sister Family Status - Relation Status Age at Mother Father Sister Level of Service:81551 AL OFFICE/OUTPATIENT ESTABLISHED MOD MDM 30 MIN Normal [facility] Patient Correspondenceon Patient Correspondence [id number]#1.00TIFF Normal [facility] XR cerv spine AP/LAT/FLX/EXT on 04-10-2024 XR cerv spine AP/LAT/FLX/EXT [facility] [place] [address] XRay Report Signed Patient: Mary Aburto MR#: [id number] : 1960 Acct:[id number] Age/Sex: 64 / M ADM Date: 04/10/24 Loc: XD Room: Type: [facility] Attending Dr: Antwon Hastings MD Copies [...] Nguyễn Patel M.D.04/10/2024 9:13 AM Dictation Location: [place] [address] Transcribed By: [facility] 04/10/24 0913 Dictated By: Nguyễn Patel DO 04/10/24 0911 Signed By: 04/10/24 0913 Normal [facility] Office/Clinic Note-Physician on 04-03-2024 Office/Clinic Note-Physician [id number]#1.00TIFF [facility] Office/Clinic Note-Nurseon 0 04-01-2024 Office/Clinic Note-Nurse [id number]#1.00TIFF [facility] Consent for Treatmenton Consent for Treatment [id number]#1.00TIFF [facility] Consultation Noteon 02-28-20 Consultation Note Patient is [...] with any questions or concerns that arise. [facility] Comment on above: Result Comment: Elec tronically Signed By: Damián Estrada DO\Date and Time Signed: 02/28/24 16:01 EDT Office/Clinic Note-Physician on 02-28-2024 Office/Clinic Note-Physician [id number]#1.00TIFF [facility] Patient Correspondenceon Patient Correspondence [id number]#1.00TIFF [facility] Patient Correspondence [id number]#1.00TIFF [facility] Patient History Officeon Patient History Office [id number]#1.00TIFF [facility] Consent for Treatmenton Consent for Treatment [id number]#1.00TIFF [facility] Consent for Procedure/Surger yon 01-23-2024 Consent for Procedure/Surgery [id number]#1.00TIFF [facility] Consent for Treatmenton - Consent for Treatment [id number]#1.00TIFF [facility] Discharge Instructionson Discharge Instructions [id number]#1.00TIFF [facility] IntraOperative Documentson 0 01-23-2024 IntraOperative Documents [id number]#1.00TIFF Normal [facility] IntraOperative Documents [id number]#1.00TIFF Normal [facility] IntraOperative Documents [id number]#1.00TIFF Normal [facility] Main OR Intraoperative Recor don 01-23-2024 Main OR Intraoperative Record IntraOp Document Type FTPM Summary Primary Physician: Damián Estrada DO Finalized Date/Time: 01/23/24 15:08:46 Pt. Name: MARY ABURTO/Sex: 1960 Male Med Rec #: [id number] Physician: Damián Estrada DO Financial #: [id number] Pt. Type: P Room/Bed: / Admit/Disch: 01/23/24 14:25:44 - Institution: Case Times FTPM Entry 1 Patient Times In Room 01/23/24 14:54:00 Out Room 01/23/24 15:09:00 Procedure Times Start 01/23/24 14:57:00 Stop 01/23/24 15:08:00 Anesthesia Times Last Modified By: Sixto POLK, Ernestine River 01/23/24 15:08:42 Case Attendance FTPM Entry 1 Entry 2 Entry 3 Case Attendee Damián Estrada DO, RN, Ernestine Sue RN, [facility] Role Performed Surgeon - Primary Credit Union Teller - Primary Scrub - Primary Time In 01/23/24 14:54:00 01/23/24 14:54:00 01/23/24 14:54:00 Time Out 01/23/24 15:09:00 01/23/24 15:09:00 01/23/24 15:09:00 Procedure INTERLAMINAR EPIDURAL INTERLAMINAR EPIDURAL INTERLAMINAR EPIDURAL STEROID INJECTION(.) STEROID INJECTION(.) STEROID INJECTION(.) Comments Last Modified By: Sixto POLK, Ernestine Henson RN, Ernestine Henson RN, Ernestine River 01/23/24 15:08:43 01/23/24 15:08:43 01/23/24 15:08:43 Entry 4 Case Attendee Berkley BUNDY)Jordana Role Performed Washroom Cleaner Time In 01/23/24 14:54:00 Time Out 01/23/24 [...] and tissue Entry 1 Skin Integrity Intact, [place], Warm, and Skin Abnormality No Dry Outcomes [...] By R (more content not included)... Normal [facility] Main OR Preoperative Recordo n 01-23-2024 Main OR Preoperative Record Holding Area Document Type FTPM Summary Primary Physician: Damián Estrada DO Finalized Date/Time: 01/23/24 14:30:44 Pt. Name: MARY ABUROT/Sex: 1960 Male Med Rec #: [id number] Physician: Damián Estrada DO Financial #: [id number] Pt. Type: P Room/Bed: / Admit/Disch: 01/23/24 [...] Operative Site Yes Marking: Marked By: Dr Estraad Location: T1/2 RUBENS Availability Equipment, X-Ray Verified: Does Patient Smoke No Patient states Yes Comment - Adult -helio postop adult Supervision supervision available Case Cancelled in No Holding Area see comments below for reason Last Modified By: Sayra Maurice RN 01/23/24 14:30:38 Finalized By: Sayra Maurice RN Document Signatures Signed By: Sayra Maurice RN 01/23/24 14:30 [facility] Patient Correspondenceon Patient Correspondence [id number]#1.00TIFF [facility] Office/Clinic Note-Physician on 12-21-2023 Office/Clinic Note-Physician [id number]#1.00TIF F [facility] Office Visiton 12-20-2023 Follow-up visit [id number] Mary Aburto 1960 M Date Provider Department Center 12/20/2023 166-KENNEDI MICHELLE CARD [facility] Family History Problem Relation Age of Onset Diabetes Mother Lung cancer Father Lung cancer Sister Family Status - Relation Status Age at Mother Father Sister Level of Service:89651 AL OFFICE/OUTPATIENT ESTABLISHED MOD MDM 30 MIN Reason for Visit and Comments: Coronary Artery Disease [187] Hypertension [723304] Hyperlipidemia [182] Normal [facility] Orders Onlyon 12-20-2023 Orders Only [id number] Mary Aburto 1960 M Date Provider Department Center 12/20/2023 BLAISE MEDRANO FADY Leija Family History Problem Relation Age of Onset Diabetes Mother Lung cancer Father Lung cancer Sister Family Status - Relation Status Age at Mother Father Sister Normal [facility] Consent for Treatmenton Consent for Treatment [id number]#1.00TIFF Normal [facility] Consultation Noteon 12-06-19 24 Consultation [...] 4/5 strength in his right hand for desulfurizer machine 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 [facility] Comment on above: Result Comment: Elec tronically Signed By: Damián Estrada DO\.br\Date and Time Signed: 12/06/23 10:46 EST Legal Correspondence Officeo n 12-06-2023 Legal Correspondence Office [id number]#1.00TIFF [facility] Office/Clinic Note-Nurseon 0 12-06-2023 Office/Clinic Note-Nurse [id number]#1.00TIFF [facility] Office/Clinic Note-Physician on 12-06-2023 Office/Clinic Note-Physician [id number]#1.00TIFF [facility] Patient Correspondenceon Patient Correspondence [id number]#1.00TIFF [facility] Patient Correspondence [id number]#1.00TIFF Normal [facility] Patient Correspondence [id number]#1.00TIFF Normal [facility] Patient Correspondence [id number]#1.00TIFF Normal [facility] Patient History Officeon Patient History Office [id number]#1.00TIFF Normal [facility] Radiology Outside Office Surveillance Sensor Officer yon 12-04-2023 Radiology Outside Office Copy [id number]#1.00TIFF Normal [facility] Physician Orderon 11-28-2023 Physician Order [id number]#1.00TIF F Normal [facility] Physician Orderon 11-20-2023 Physician Order [id number]#1.00TIFF Normal [facility] XR cerv spine AP/LAT/FLX/EXT on 08-14-2023 XR cerv spine AP/LAT/FLX/[place] [address] XRay Report Signed Patient: Mary Aburto MR#: [id number] : 1960 Acct:[id number] Age/Sex: 63 / M ADM Date: 08/14/23 Loc: XD Room: Type: [facility] Attending Dr: Antwon Hastings MD Copies [...] on flexion or extension. Impression dictated by: Thomsa uJstice M.D.08/14/2023 6:49 PM Dictation Location: [place] [address] Transcribed By: [facility] 08/14/231848 Dictated By: Thomas Justice II, MD 08/14/231842 Signed By: 08/14/231848 Normal [facility] XR cerv spine AP/LAT/FLX/EXT on 05-22-2023 XR cerv spine AP/LAT/FLX/EXT [facility] Main [place] [address] [place] [address] XRay Report Signed Patient: Mary Aburto MR#: [id number] : 1960 Acct:[id number] Age/Sex: 63 / M ADM Date: 05/22/23 Loc: XD Room: Type: [facility] Attending Dr: Antwon Hastings MD Copies [...] Dimas Jr., D.O.05/22/2023 3:31 PM Dictation Location: [place] [address] Transcribed By: [facility] 05/22/23 153 Dictated By: Jorge Dimas Jr, DO 05/22/23 153 Signed By: 05/22/23 1531 Normal [facility] Amphetamine Screen Ql (U)Ord ered By: Jaime Trujillo on 02-12-2023 Amphetamines Ql (U) Negative Negative [facility] Barbiturates [Presence] in U rine by Screen methodOrdered By: Jaime Trujillo on 02-12-2023 Barbiturates Screen Ql (U) Negative Negative [facility] Benzodiazepines Screen Ql (U )Ordered By: Jaime Trujillo on 02-12-2023 Benzodiazepines Ql (U) Negative Negative [facility] Benzoylecgonine [Presence] i n Urine by Screen methodOrdered By: Jaime Trujillo on 02-12-2023 Benzoylecgonine Screen Ql (U) Negative Negative [facility] Cannabinoids [Presence] in U rine by Screen methodOrdered By: Jaime Trujillo on 02-12-2023 Cannabinoids Screen Ql (U) Positive Negative [facility] Comment on above: These are unconfirme d results and should not be used for legal purposes. Drug Cut-Off Concentration: AMPH 1000 ng/mL SAMARIA 200 ng/mL ARJUN 200 ng/mL COCM 300 ng/mL OP 300 ng/mL PCP 25 ng/mL THC 20 ng/mL Opiates [Presence] in Urine by Screen methodOrdered By: Jaime Trujillo on 02-12-2023 Opiates Screen Ql (U) Positive Negative [facility] Phencyclidine Screen Ql (U)O rdered By: Jaime Trujillo on 02-12-2023 Phencyclidine Ql (U) Negative Negative [facility] Basophils Auto (Bld) [#/Vol] Ordered By: Antwon Hastings on 01-29-2023 Basophils (Bld) [#/Vol] 0.1 10*3/uL 0.0-0.2 [facility] Basophils/100 WBC Auto (Bld) Ordered By: Antwon Hastings on 01-29-2023 Basophils/100 WBC (Bld) 0.8 % . [facility] Calcium [Mass/volume] in Ser um or PlasmaOrdered By: Antwon Hastings on 01-29-2023 Calcium [Mass/Vol] 8.9 mg/dL 8.6-10.3 [facility] Carbon dioxide, total [Moles /volume] in Serum or PlasmaOrdered By: Antwon Hastings on 01-29-2023 CO2 [Moles/Vol] 27.7 mmol/L 21.0-31.0 [facility] Chloride [Moles/volume] in S serena or PlasmaOrdered By: Antwon Hastings on 01-29-2023 Chloride [Moles/Vol] 105 mmol/L 98-107 [facility] Creatinine [Mass/volume] in Serum or PlasmaOrdered By: Antwon Hastings on 01-29-2023 Creatinine [Mass/Vol] 0.92 mg/dL 0.70-1.30 [facility] Eosinophils Auto (Bld) [#/Vo l]Ordered By: Antwon Hastings on 01-29-2023 Eosinophils (Bld) [#/Vol] 0.2 10*3/uL 0.0-0.45 [facility] Eosinophils/100 WBC Auto (Bl d)Ordered By: Antwon Hastings on 01-29-2023 Eosinophils/100 WBC (Bld) 2.8 % . [facility] Erythrocyte distribution wid th Auto (RBC) [Ratio]Ordered By: Antwon Hastnigs on 01-29-2023 Erythrocyte distribution width (RBC) [Ratio] 12.8 % 12.0-14.8 [facility] Glucose [Mass/volume] in Ser um or PlasmaOrdered By: Antwon Hastings on 01-29-2023 Glucose [Mass/Vol] 92 mg/dL 70-100 [facility] Comment on above: ADA recommended refe rence rangeRandom Glucose Reference Range is dependent on time and content of last meal. Glucose of more than 200 mg/dL in a nonstressed, ambulatory subject supports the diagnosis of Diabetes Mellitus. Hematocrit Auto (Bld) [Volum e fraction]Ordered By: Antwon Hastings on 01-29-2023 Hematocrit (Bld) [Volume fraction] 42.1 % 38.8-50.0 [facility] Hemoglobin [Mass/volume] in BloodOrdered By: Antwon Hastings on 01-29-2023 Hemoglobin (Bld) [Mass/Vol] 14.4 g/dL 13.0-17.0 [facility] Leukocytes [#/volume] correc carlos for nucleated erythrocytes in Blood by Automated counOrdered By: Anwton Hastings on 01-29-2023 WBC corrected for nucl RBC Auto (Bld) [#/Vol] 7.4 10*3/uL 4.1-10.5 [facility] Lymphocytes Auto (Bld) [#/Vo l]Ordered By: Antwon Hastings on 01-29-2023 Lymphocytes (Bld) [#/Vol] 2.0 10*3/uL 1.00-4.8 [facility] Lymphocytes/100 WBC Auto (Bl d)Ordered By: Antwon Hastings on 01-29-2023 Lymphocytes/100 WBC (Bld) 27.3 % . [facility] MCH Auto (RBC) [Entitic mass ]Ordered By: Antwon Hastings on 01-29-2023 MCH (RBC) [Entitic mass] 34.0 pg 27.5-35.2 [facility] MCHC Auto (RBC) [Mass/Vol]Or dered By: Antwon Hastings on 01-29-2023 MCHC (RBC) [Mass/Vol] 34.1 g/dL 32.5-35.6 [facility] MCV Auto (RBC) [Entitic vol] Ordered By: Antwon Hastings on 01-29-2023 MCV (RBC) [Entitic vol] 99.8 fL 83.5-101 [facility] Monocytes Auto (Bld) [#/Vol] Ordered By: Antwon Hastings on 01-29-2023 Monocytes (Bld) [#/Vol] 0.8 10*3/uL 0.0-0.8 [facility] Monocytes/100 WBC Auto (Bld) Ordered By: Antwon Hastings on 01-29-2023 Monocytes/100 WBC (Bld) 11.1 % . [facility] Neutrophils Auto (Bld) [#/Vo l]Ordered By: Antwon Hastings on 01-29-2023 Neutrophils (Bld) [#/Vol] 4.3 10*3/uL 1.8-7.7 [facility] Neutrophils/100 WBC Auto (Bl d)Ordered By: Antwon Hastings on 01-29-2023 Neutrophils/100 WBC (Bld) 58.0 % . [facility] No Panel InformationOrdered By: Antwon Hastings on 01-29-2023 Estimated GFR (CKD-EPI) > 60.0 mL/Min [facility] Creatinine Clearance (Chem N/A [facility] Nucleated erythrocytes [Pres ence] in Blood by Automated countOrdered By: Antwon Hastings on 01-29-2023 Nucleated RBC Auto Ql (Bld) 0.2 /100{WBC} 0-0.5 [facility] Platelet mean volume Auto (B ld) [Entitic vol]Ordered By: Antwon Hastings on 01-29-2023 Platelet mean volume (Bld) [Entitic vol] 7.2 fL 6.6-10.1 [facility] Platelets Auto (Bld) [#/Vol] Ordered By: Antwon Hastings on 01-29-2023 Platelets (Bld) [#/Vol] 281 10*3/uL 150-450 [facility] Potassium [Moles/volume] in Serum or PlasmaOrdered By: Antwon Hastings on 01-29-2023 Potassium [Moles/Vol] 4.6 mmol/L 3.5-5.1 [facility] RBC Auto (Bld) [#/Vol]Ordere d By: Antwon Hastings on 01-29-2023 RBC (Bld) [#/Vol] 4.22 10*6/uL 3.90-5.60 [facility] Serum or plasma anion gap de terminationOrdered By: Antwon Hastings on 01-29-2023 Anion gap [Moles/Vol] 7.9 mmol/L 6.0-15.0 [facility] Sodium [Moles/volume] in Ser um or PlasmaOrdered By: Antwon Hastings on 01-29-2023 Sodium [Moles/Vol] 136 mmol/L 136-145 [facility] Urea nitrogen [Mass/volume] in Serum or PlasmaOrdered By: Antwon Hastings on 01-29-2023 Urea nitrogen [Mass/Vol] 11 mg/dL 7-25 [facility] WBC Auto (Bld) [#/Vol]Ordere d By: Antwon Hastings on 01-29-2023 WBC (Bld) [#/Vol] 7.4 10*3/uL 4.1-10.5 [facility] Creatinine (Bld) [Mass/Vol]O rdered By: Antwon Hastings on 12-25-2022 Creatinine [Mass/Vol] 1.3 mg/dL 0.6-1.3 [facility] Comment on above: ER/ESD physician is notified/shown all ISTAT results.Critical values may be confirmed by laboratory testing ifdeemed necessary by ER attending doctor. MR cervical spine wo/w conon 12-25-2022 MR cervical spine wo/w con [facility] [employer] Other MR cervical spine wo/w con [facility] [employer] Other MR cervical spine wo/w con 1111 [facility] [employer] [facility] [employer] Other MR cervical spine wo/[place] [address] [employer] Other MR cervical spine wo/w con MRI Report [employer] Other MR cervical spine wo/w con Signed [employer] Other MR cervical spine wo/w con Patient: Mary Aburto MR#: [id number] [employer] Other MR cervical spine wo/w con : 1960 Acct:[id number] [employer] Other MR cervical spine wo/w con Age/Sex: 62 / M ADM Date: 12/25/22 [employer] Other MR cervical spine wo/w con Loc: MR Room: Type: [facility] [employer] Other MR cervical spine wo/w con Attending Dr: Antwon Hastings MD [employer] Other MR cervical spine wo/w con Copies to: Antwon Hastings MD [employer] Other MR cervical spine wo/w con Ordering Provider: Antwon Hastings MD [employer] Other MR cervical spine wo/w con Date of Service: 12/25/22 [employer] Other MR cervical spine wo/w con MR/MR cervical spine wo/w con: M47.12 [employer] Other MR cervical spine wo/w con MR cervical spine wo/w con 12/25/2022 1:56 PM [employer] Other MR cervical spine wo/w con SIGNS AND SYMPTOMS: Severe neck pain radiating down right arm with weakness, tingling, and numbness [employer] Other MR cervical spine wo/w con PROTOCOL: Multiplanar multisequence MR images of the cervical spine were obtained with and without [employer] Other MR cervical spine wo/w con IV contrast [employer] Other MR cervical spine wo/w con CONTRAST: 13 mL of intravenous ProHance [employer] Other MR cervical spine wo/w con COMPARISON: 10/23/2022 and 02/08/2022 [employer] Other MR cervical spine wo/w con FINDINGS: There is straightening and mild reversal of the normal cervical lordosis. The bones are in [employer] Other MR cervical spine wo/w con anatomic alignment otherwise. There is preservation of vertebral body heights. There is posterior [employer] Other MR cervical spine wo/w con fusion and decompression from C2 through C5. There is anterior fusion hardware from C5 through T1. [employer] Other MR cervical spine wo/w con There is no change in alignment. The marrow signal is within normal limits. The cord is normal in [employer] Other MR cervical spine wo/w con signal. No epidural or paraspinous fluid collection is appreciated. The visualized paraspinous soft [employer] Other MR cervical spine wo/w con tissues are within normal limits. The prevertebral soft tissues are within normal limits. There is [employer] Other MR cervical spine wo/w con no abnormal postcontrast enhancement. [employer] Other MR cervical spine wo/w con At C2-C3: There is a normal disc, central canal, and neural foramen. [employer] Other MR cervical spine wo/w con At C3-C4: There is a normal disc, central canal, and neural foramen. [employer] Other MR cervical spine wo/w con At C4-C5: There is facet hypertrophy with mild uncovertebral joint spurring contributing to moderate [employer] Other MR cervical spine wo/w con neural foraminal narrowing bilaterally. No spinal canal narrowing. [employer] Other MR cervical spine wo/w con At C5-C6: There is facet hypertrophy with mild uncovertebral joint spurring contributing to mild [employer] Other MR cervical spine wo/w con At C6-C7: There is facet hypertrophy with mild uncovertebral joint spurring contributing to moderate [employer] Other MR cervical spine wo/w con At C7-T1: There is a broad-based disc bulge with facet and negative joint degenerative change [employer] Other MR cervical spine wo/w con contributing to moderate to severe bilateral neural foraminal narrowing with mild spinal canal [employer] Other MR cervical spine wo/w con narrowing. [employer] Other MR cervical spine wo/w con MR/MR cervical spine wo/w con [employer] Other MR cervical spine wo/w con IMPRESSION: [employer] Other MR cervical spine wo/w con There is posterior fusion and decompression from C2 through C5. There is anterior fusion hardware [employer] Other MR cervical spine wo/w con from C5 through T1. There is no change in alignment. [employer] Other MR cervical spine wo/w con Degenerative changes contribute to neural foraminal narrowing bilaterally from C4-C5 through the C7- [employer] Other MR cervical spine wo/w con T1 levels. Neural foraminal narrowing appears to be greatest at C4-C5. [employer] Other MR cervical spine wo/w con No evidence of cord compression or cord signal abnormality. [employer] Other MR cervical spine wo/w con Impression dictated by: Thomas Justice M.D.12/25/2022 5:05 PM [employer] Other MR cervical spine wo/w con Dictation Location: [place] [address] [employer] Other MR cervical spine wo/w con Transcribed By: PWS 12/25/22 1705 [employer] Other MR cervical spine wo/w con Dictated By: Thomas Justice II, MD 12/25/22 1654 [employer] Other MR cervical spine wo/w con Signed By: [employer] Other MR cervical spine wo/w con 12/25/22 1709 [employer] Other No Panel InformationOrdered By: Antwon Hastings on 12-25-2022 POC Estimated GFR > 60 [facility] Comment on above: GFR estimated refere nce range: According to KDOQI guidelines, <60 ml/min/1.73m2 is sufficient to diagnose a patient with chronic kidney disease. POC Estimated GFR Non- Amer 56 [facility] CBC AUTO DIFFon 11-13-2022 BASO # 0.0 103/ul Normal 0.0-0.1 [facility] Comment on above: Performed By: #### C #### [facility] [address] [address] [address] Edilson Mortensen Basophils/100 WBC (Bld) 0.4 % Normal 0.2-2.0 [facility] Comment on above: Performed By: #### C BC #### [facility] [address] [address] [address] Edilson Mortensen EO # 0.2 103/ul Normal 0.0-0.7 [facility] Comment on above: Performed By: #### C BC #### [facility] [address] [address] [address] Edilson Mortensen Eosinophils/100 WBC (Bld) 2.1 % Normal 0.9-7.0 [facility] Comment on above: Performed By: #### C BC #### [facility] [address] [place] [address] Dr. Edilson Mortensen Erythrocyte distribution width (RBC) [Ratio] 13.0 % Normal 11.0-15.0 [facility] Comment on above: Performed By: #### C BC #### [facility] [address] [place] [address] Dr. Edilson Mortensen Hematocrit (Bld) [Volume fraction] 41.6 % Critically low 42.0-54.0 [facility] Comment on above: Performed By: #### C BC #### [facility] [address] [place] [address] Dr. Edilson Mortensen Hemoglobin (Bld) [Mass/Vol] 14.5 g/dL Normal 14.0-18.0 [facility] Comment on above: Performed By: #### C BC #### [facility] [address] [place] [address] Dr. Edilson Mortensen IG # 0.05 10e3/ul Critically high 0.00-0.03 [facility] Comment on above: Performed By: #### C BC #### [facility] [address] [address] [address] Edilson Mortensen IG % 0.6 % Critically high 0.0-0.5 [facility] Comment on above: Performed By: #### C BC #### [facility] [address] [address] [address] Edilson Mortensen LYMPH # 2.2 103/ul Normal 1.2-3.8 [facility] Comment on above: Performed By: #### C BC #### [facility] [address] [address] [address] Edilson Mortensen Lymphocytes/100 WBC (Bld) 23.7 % Normal 20.5-60.0 [facility] Comment on above: Performed By: #### C BC #### [facility] [address] [address] [address] Edilson Mortensen MANUAL DIFF REQ NO Normal [facility] Comment on above: Performed By: #### C BC #### [facility] [address] [place] [address] Dr. Edilson Mortensen MCH (RBC) [Entitic mass] 34.0 pg Normal 25.9-34.0 [facility] Comment on above: Performed By: #### C BC #### [facility] [address] [place] [address] Dr. Edilson Mortensen MCHC (RBC) [Mass/Vol] 34.9 g/dL Normal 29.9-35.2 [facility] Comment on above: Performed By: #### C BC #### [facility] [address] [place] [address] Dr. Edilson Mortensen MCV (RBC) [Entitic vol] 97.7 fL Critically high 80.0-94.0 [facility] Comment on above: Performed By: #### C BC #### [facility] [address] [place] [address] Dr. Edilson Mortensen MONO # 1.1 103/ul Critically high 0.3-0.8 [facility] Comment on above: Performed By: #### C BC #### [facility] [address] [place] [address] Dr. Edilson Mortensen Monocytes/100 WBC (Bld) 12.6 % Critically high 1.7-12.0 [facility] Comment on above: Performed By: #### C BC #### [facility] [address] [address] [address] Edilson Mortensen NEUT # 5.5 103/ul Normal 1.4-6.5 [facility] Comment on above: Performed By: #### C BC #### [facility] [address] [address] [address] Edilson Mortensen Neutrophils/100 WBC (Bld) 60.6 % Normal 43.0-75.0 [facility] Comment on above: Performed By: #### C BC #### [facility] [address] [place] [address] Dr. Edilson Mortensen Platelet mean volume (Bld) [Entitic vol] 8.8 fL Critically low 9.5-13.5 [facility] Comment on above: Performed By: #### C BC #### [facility] [address] [place] [address] Dr. Edilson Mortensen PLT 267 103/ul Normal 150-450 [facility] Comment on above: Performed By: #### C BC #### [facility] [address] [place] [address] Dr. Edilson Mortensen RBC 4.26 106/ul Critically low 4.70-6.10 [facility] Comment on above: Performed By: #### C BC #### [facility] [address] [place] [address] Dr. Edilson Mortensen WBC 9.1 103/ul Normal 4.0-11.0 [facility] Comment on above: Performed By: #### C BC #### [facility] [address] [place] [address] Dr. Edilson Mortensen CTA CHEST WO W [...] by: AARON MORA Date: 2022-11-13 20:14 Normal [facility] PROF CHEM 8 (BAS METB)on Anion gap [Moles/Vol] 13.9 mmol/L Normal [facility] Comment on above: Performed By: #### T HYLC #### [facility] [address] [address] [address] Edilson Mortensen Calcium [Mass/Vol] 8.6 mg/dL Normal 8.5-10.1 [facility] Comment on above: Performed By: #### T HYLC #### [facility] [address] [address] [address] Edilson Mortensen Chloride [Moles/Vol] 103 mmol/L Normal 98-107 [facility] Comment on above: Performed By: #### T HYLC #### [facility] [address] [address] [address] Edilson Mortensen CO2 [Moles/Vol] 26.8 mmol/L Normal 21.0-32.0 [facility] Comment on above: Performed By: #### T HYLC #### [facility] [address] [address] [address] Edilson Mortensen Creatinine [Mass/Vol] 1.46 mg/dL Critically high 0.70-1.30 [facility] Comment on above: Performed By: #### T HYLC #### [facility] [address] [address] [address] Edilson Mortensen EGFR-AF CITIZEN OF [place] 60 mL/min/1.73m2 Normal >=60 [facility] Comment on above: Performed By: #### T HYLC #### [facility] [address] [address] [address] Edilson Mortensen EGFR-NON AF CITIZEN OF [place] 49 mL/min/1.73m2 Critically low >=60 [facility] Comment on above: Performed By: #### T HYLC #### [facility] [address] [address] [address] Edilson Mortensen Glucose [Mass/Vol] 86 mg/dL Normal 74-106 [facility] Comment on above: Performed By: #### T HYLC #### [facility] [address] [address] [address] Edilson Mortensen Potassium [Moles/Vol] 3.7 mmol/L Normal 3.5-5.1 [facility] Comment on above: Performed By: #### T HYLC #### [facility] [address] [address] [address] Edilson Mortensen Sodium [Moles/Vol] 140 mmol/L Normal 136-145 [facility] Comment on above: Performed By: #### T HYLC #### [facility] [address] [address] [address] Edilson Mortensen Urea nitrogen [Mass/Vol] 12.0 mg/dL Normal 7.0-18.0 [facility] Comment on above: Performed By: #### T HYLC #### [facility] [address] [address] [address] Edilson Mortensen Urea nitrogen/Creatinine [Mass ratio] 8.2 mg/mg Normal [facility] Comment on above: Performed By: #### T HYLC #### [facility] [address] [address] [address] Edilson Mortensen PROTIMEon 11-13-2022 INR Coag (PPP) [Relative time] {INR} Normal [facility] Comment on above: Performed By: #### I SAMEER, PSASC, VITB12 #### [facility] [address] [address] [address] Edilson Mortensen INR GUIDELINES SEE BELOW Normal [facility] Comment on above: Result Comment: GERARDO RED INR: 2.0 - 3.0 CONDITIONS NOT LISTED BELOW 2.5 - 3.5 FOR PROSTHETIC HEART VALVE REPLACEMENT 2.5 - 3.5 RECURRENT THROMBOSIS Performed By: #### I IRENA ESTRELLA, VITB12 #### [facility] [address] [place] [address] Dr. Edilson Mortensen PT Coag (PPP) [Time] 9.8 s Normal 9.0-11.6 [facility] Comment on above: Performed By: #### I SAMEER PSASC, VITB12 #### [facility] [address] [place] [address] Dr. Edilson Mortensen PTTon 11-13-2022 aPTT Coag (Bld) [Time] 27.0 s Normal 22.3-36.2 [facility] Comment on above: Performed By: #### I IRENA ESTRELLA, VITB12 #### [facility] [address] [place] [address] Dr. Edilson Mortensen TROPONIN, HIGH SENSITIVITYon 11-13-2022 HSTROP 4.1 pg/mL Normal 4.0-76.1 [facility] Comment on above: Result Comment: CUT- OFF POINTS HAVE BEEN ESTABLISHED BASED ON THE FOURTH UNIVERSAL DEFINITIONS OF MYOCARDIAL INFARCTION. THE UPPER REFERENCE LIMIT (URL) OF TROPONIN, DEFINED THE 99TH PERCENTILE OF cTnI DISTRIBUTION IN A REFERENCE POPULATION, HAS BEEN CONFIRMED THE DECISION THRESHOLD FOR PA DIAGNOSIS. Performed By: #### T HYLC #### [facility] [address] [place] [address] Dr. Edilson Mortensen US SCROTUMon 07-14-2022 US [...] SAMANTA PLASCENCIA Date: 2022-07-14 07:15 Normal [facility] TESTOSTERONE, TOTALon 2021 Testosterone [Mass/Vol] 1038 ng/dL Critically high 264-916 [facility] Comment on above: Result Comment: Adul t male reference interval is based on a population of healthy nonobese males (BMI <30) between 19 and 39 years old. My, et.al. JCEM 2017,102;7995-5997. PMID: [id number]. Performed By: #### T ESTTOT #### [facility] [address] [place] [address] Dr. Edilson Mortensen INSULINon 06-10-2022 Insulin 4.7 uIU/mL Normal 2.6-24.9 [facility] Comment on above: Performed By: #### I SAMEER, PSASC, VITB12 #### [facility] [address] [address] [address] Edilson Mortensen T4, T3U, FTI LABCORPon 06-10 Free Thyroxine Index 2.3 Normal 1.2-4.9 [facility] Comment on above: Performed By: #### T HYLC #### [facility] [address] [place] [address] Dr. Edilson Mortensen T3 Uptake 29 % Normal 24-39 [facility] Comment on above: Performed By: #### T HYLC #### [facility] [address] [address] [address] Edilson Mortensen T4 [Mass/Vol] 7.9 ug/dL Normal 4.5-12.0 [facility] Comment on above: Performed By: #### T HYLC #### [facility] [address] [place] [address] Dr. Edilson Mortensen TESTOSTERONE, TOTALon 2021 Testosterone [Mass/Vol] 1062 ng/dL Critically high 264-916 [facility] Comment on above: Result Comment: Adul t male reference interval is based on a population of healthy nonobese males (BMI <30) between 19 and 39 years old. My, et.al. JCEM 2017,102;5094-7918. PMID: [id number]. Performed By: #### T ESTTOT #### [facility] [address] [address] [address] Edilson Mortensen VIT D 25-OH LABCORPon 2021 Vitamin D, 25-Hydroxy 17.9 ng/mL Critically low 30.0-100.0 [facility] Comment on above: Result Comment: Isabel min D deficiency has been defined by the [place] of [employer] and an Endocrine Society practice guideline as a level of serum 25-OH vitamin D less than 20 ng/mL (1,2). The Endocrine Society went on to further define vitamin D insufficiency as a level between 21 and 29 ng/mL (2). 1. IOM ([place] of [employer]). 2010. Dietary reference intakes for calcium and D. [place]: The National Academies Press. 2. Gayla MF, Laura NC, Kelly BARRIOS, et al. Evaluation, treatment, and prevention of vitamin D deficiency: an Endocrine Society clinical practice guideline. JCEM. 2010; 96(7):1911-30. Performed By: #### I SAMEER, PSASC, VITB12 #### [facility] [address] [address] [address] Edilson Mortensen CBC AUTO DIFFon 06-09-2022 BASO # 0.0 103/ul Normal 0.0-0.1 [facility] Comment on above: Performed By: #### C BC #### [facility] [address] [address] [address] Edilson Mortensen Basophils/100 WBC (Bld) 0.4 % Normal 0.2-2.0 [facility] Comment on above: Performed By: #### C BC #### [facility] [address] [address] [address] Edilson Mortensen EO # 0.3 103/ul Normal 0.0-0.7 [facility] Comment on above: Performed By: #### C BC #### [facility] [address] [place] [address] Dr. Edilson Mortensen Eosinophils/100 WBC (Bld) 3.0 % Normal 0.9-7.0 [facility] Comment on above: Performed By: #### C BC #### [facility] [address] [place] [address] Dr. Edilson Mortnesen Erythrocyte distribution width (RBC) [Ratio] 12.2 % Normal 11.0-15.0 [facility] Comment on above: Performed By: #### C BC #### [facility] [address] [place] [address] Dr. Edilson Mortensen Hematocrit (Bld) [Volume fraction] 46.0 % Normal 42.0-54.0 [facility] Comment on above: Performed By: #### C BC #### [facility] [address] [place] [address] Dr. Edilson Mortensen Hemoglobin (Bld) [Mass/Vol] 15.6 g/dL Normal 14.0-18.0 [facility] Comment on above: Performed By: #### C BC #### [facility] [address] [place] [address] Dr. Edilson Mortensen IG # 0.05 10e3/ul Critically high 0.00-0.03 [facility] Comment on above: Performed By: #### C BC #### [facility] [address] [place] [address] Dr. Edilson Mortensen IG % 0.5 % Normal 0.0-0.5 [facility] Comment on above: Performed By: #### C BC #### [facility] [address] [place] [address] Dr. Edilson Mortensen LYMPH # 2.6 103/ul Normal 1.2-3.8 [facility] Comment on above: Performed By: #### C BC #### [facility] [address] [place] [address] Dr. Edilson Mortensen Lymphocytes/100 WBC (Bld) 26.1 % Normal 20.5-60.0 [facility] Comment on above: Performed By: #### C BC #### [facility] [address] [place] [address] Dr. Edilson Mortensen MANUAL DIFF REQ NO Normal [facility] Comment on above: Performed By: #### C BC #### [facility] [address] [place] [address] Dr. Edislon Mortensen MCH (RBC) [Entitic mass] 33.6 pg Normal 25.9-34.0 [facility] Comment on above: Performed By: #### C BC #### [facility] [address] [place] [address] Dr. Edilson Mortensen MCHC (RBC) [Mass/Vol] 33.9 g/dL Normal 29.9-35.2 [facility] Comment on above: Performed By: #### C BC #### [facility] [address] [place] [address] Dr. Edilson Mortensen MCV (RBC) [Entitic vol] 99.1 fL Critically high 80.0-94.0 [facility] Comment on above: Performed By: #### C BC #### [facility] [address] [place] [address] Dr. Edilson Mortensen MONO # 1.2 103/ul Critically high 0.3-0.8 [facility] Comment on above: Performed By: #### C BC #### [facility] [address] [place] [address] Dr. Edilson Mortensen Monocytes/100 WBC (Bld) 12.2 % Critically high 1.7-12.0 [facility] Comment on above: Performed By: #### C BC #### [facility] [address] [place] [address] Dr. Edilson Mortensen NEUT # 5.8 103/ul Normal 1.4-6.5 [facility] Comment on above: Performed By: #### C BC #### [facility] [address] [place] [address] Dr. Edilson Mortensen Neutrophils/100 WBC (Bld) 57.8 % Normal 43.0-75.0 [facility] Comment on above: Performed By: #### C BC #### [facility] [address] [address] [address] Edilson Mortensen Platelet mean volume (Bld) [Entitic vol] 8.3 fL Critically low 9.5-13.5 [facility] Comment on above: Performed By: #### C BC #### [facility] [address] [address] [address] Edilson Mortensen PLT 272 103/ul Normal 150-450 [facility] Comment on above: Performed By: #### C BC #### [facility] [address] [place] [address] Dr. Edilson Mortensen RBC 4.64 106/ul Critically low 4.70-6.10 [facility] Comment on above: Performed By: #### C BC #### [facility] [address] [place] [address] Dr. Edilson Mortensen WBC 10.0 103/ul Normal 4.0-11.0 [facility] Comment on above: Performed By: #### C BC #### [facility] [address] [place] [address] Dr. Edilson Mortensen DILANTINon 06-09-2022 Phenytoin [Mass/Vol] 14.6 ug/mL Normal 10.0-20.0 [facility] Comment on above: Performed By: #### I IRENA ESTRELLA, VITB12 #### [facility] [address] [place] [address] Dr. Edilson Mortensen GLYCOHEMOGLOBIN A1Con 2021 ADA RECOMMENDATION SEE BELOW Normal [facility] Comment on above: Result Comment: ADA RECOMMENDED LIMIT 4.0 - 6.0 ADA THERAPEUTIC TARGET < 7.0 ACTION SUGGESTED > 7.0 Performed By: #### I IRENA ESTRELLA, VITB12 #### [facility] [address] [place] [address] Dr. Edilson Mortensen Glucose [Mass/Vol] 108 mg/dL Normal [facility] Comment on above: Performed By: #### I MARGE ESTRELLASC, VITB12 #### [facility] [address] [place] [address] Dr. Edilson Mortensen HbA1c (Bld) [Mass fraction] 5.4 % Normal 4.5-6.2 [facility] Comment on above: Performed By: #### I MARGE ESTRELLASC, VITB12 #### [facility] [address] [address] [address] Edilson Mortensen IRONon 06-09-2022 Iron [Mass/Vol] 109.0 ug/dL Normal 65.0-175.0 [facility] Comment on above: Performed By: #### I SAMEER PSASC, VITB12 #### [facility] [address] [place] [address] Dr. Edilson Mortensen LIPID PROFILEon 06-09-2022 CHOL-HDL RATIO NORM SEE BELOW Normal [facility] Comment on above: Result Comment: 3.3 - 4.4 LOW RISK 4.4 - 7.1 AVERAGE RISK 7.1 - 11.0 MODERATE RISK >11.0 HIGH RISK Performed By: #### I MARGE ESTRELLASC, VITB12 #### [facility] [address] [address] [address] Edilson Mortensen Cholesterol [Mass/Vol] 153 mg/dL Normal <=200 [facility] Comment on above: Performed By: #### I MARGE ESTRELLASC, VITB12 #### [facility] [address] [place] [address] Dr. Edilosn Mortensen Cholesterol in HDL [Mass/Vol] 56 mg/dL Normal 40-60 [facility] Comment on above: Performed By: #### I MARGE ESTRELLASC, VITB12 #### [facility] [address] [address] [address] Edilson Mortensen Cholesterol in LDL [Mass/Vol] 75.0 mg/dL Normal [facility] Comment on above: Performed By: #### I SAMEER PSASC, VITB12 #### [facility] [address] [place] [address] Dr. Edilson Mortensen Cholesterol.total/Chol esterol in HDL [Mass ratio] 2.7 {ratio} Normal [facility] Comment on above: Performed By: #### I SAMEER PSASC, VITB12 #### [facility] [address] [address] [address] Edilson Mortensen HDL NORMAL > or = 60 mg/dl - LO W CARDIOVASCULAR RISK <40 mg/dl - HIGH CARDIOVASCULAR RISK Normal [facility] Comment on above: Performed By: #### I MARGE ESTRELLASC, VITB12 #### [facility] [address] [address] [address] Edilson Mortensen LDL CALC NORMAL SEE BELOW Normal [facility] Comment on above: Result Comment: <100 mg/dl OPTIMAL 100 - 129 mg/dl NEAR OR ABOVE OPTIMAL 130 - 159 mg/dl BORDERLINE HIGH 160 - 189 mg/dl HIGH >190 mg/dl VERY HIGH Performed By: #### I MARGE ESTRELLASC, VITB12 #### [facility] [address] [place] [address] Dr. Edilson Mortensen Triglyceride [Mass/Vol] 110 mg/dL Normal <=150 [facility] Comment on above: Performed By: #### I MARGE ESTRELLASC, VITB12 #### [facility] [address] [address] [address] Edilson Mortensen VLDL CALC 22.0 mg/dL Normal [facility] Comment on above: Performed By: #### I SAMEER PSASC, VITB12 #### [facility] [address] [place] [address] Dr. Edilson Mortensen PROF 14(COMP METB)on 022 Albumin [Mass/Vol] 3.6 g/dL Normal 3.4-5.0 [facility] Comment on above: Performed By: #### I SAMEER PSASC, VITB12 #### [facility] [address] [place] [address] Dr. Edilson Mortensen Albumin/Globulin [Mass ratio] 1.1 {ratio} Normal [facility] Comment on above: Performed By: #### I SAMEER PSASC, VITB12 #### [facility] [address] [place] [address] Dr. Edilson Mortensen ALP [Catalytic activity/Vol] 115 U/L Normal 46-116 [facility] Comment on above: Performed By: #### I SAMEER PSASC, VITB12 #### [facility] [address] [address] [address] Edilson Mortensen ALT [Catalytic activity/Vol] 12 U/L Critically low 16-63 [facility] Comment on above: Performed By: #### I SAMEER, PSASC, VITB12 #### [facility] [address] [address] [address] Edilson Mortensen Anion gap [Moles/Vol] 10.6 mmol/L Normal [facility] Comment on above: Performed By: #### I SAMEER, PSASC, VITB12 #### [facility] [address] [address] [address] Edilson Mortensen AST [Catalytic activity/Vol] 11 U/L Critically low 15-37 [facility] Comment on above: Performed By: #### I SAMEER, PSASC, VITB12 #### [facility] [address] [place] [address] Dr. Edilson Mortensen Bilirubin [Mass/Vol] 0.2 mg/dL Normal 0.2-1.0 [facility] Comment on above: Performed By: #### I SAMEER, PSASC, VITB12 #### [facility] [address] [place] [address] Dr. Edilson Mortensen Calcium [Mass/Vol] 9.1 mg/dL Normal 8.5-10.1 [facility] Comment on above: Performed By: #### I SAMEER, PSASC, VITB12 #### [facility] [address] [place] [address] Dr. Edilson Mortensen Chloride [Moles/Vol] 101 mmol/L Normal 98-107 [facility] Comment on above: Performed By: #### I SAMEER, PSASC, VITB12 #### [facility] [address] [place] [address] Dr. Edilson Mortensen CO2 [Moles/Vol] 29.7 mmol/L Normal 21.0-32.0 [facility] Comment on above: Performed By: #### I SAMEER, PSASC, VITB12 #### [facility] [address] [place] [address] Dr. Edilson Mortensen Creatinine [Mass/Vol] 1.11 mg/dL Normal 0.70-1.30 [facility] Comment on above: Performed By: #### I SAMEER PSASC, VITB12 #### [facility] [address] [address] [address] Edilson Mortensen EGFR-AF CITIZEN OF [place] >60 Normal >=60 [facility] Comment on above: Performed By: #### I SAMEER PSASC, VITB12 #### [facility] [address] [address] [address] Edilson Mortensen EGFR-NON AF CITIZEN OF [place] >60 Normal >=60 [facility] Comment on above: Performed By: #### I SAMEER PSASC, VITB12 #### [facility] [address] [place] [address] Dr. Edilson Mortensen Globulin (S) [Mass/Vol] 3.4 g/dL Normal [facility] Comment on above: Performed By: #### I SAMEER PSASC, VITB12 #### [facility] [address] [place] [address] Dr. Edilson Mortensen Glucose [Mass/Vol] 111 mg/dL Critically high 74-106 [facility] Comment on above: Performed By: #### I SAMEER PSASC, VITB12 #### [facility] [address] [place] [address] Dr. Edilson Mortensen Potassium [Moles/Vol] 4.3 mmol/L Normal 3.5-5.1 [facility] Comment on above: Performed By: #### I SAMEER PSASC, VITB12 #### [facility] [address] [place] [address] Dr. Edilson Mortensen Protein [Mass/Vol] 7.0 g/dL Normal 6.4-8.2 [facility] Comment on above: Performed By: #### I SAMEER PSASC, VITB12 #### [facility] [address] [place] [address] Dr. Edilson Mortensen Sodium [Moles/Vol] 137 mmol/L Normal 136-145 [facility] Comment on above: Performed By: #### I SAMEER, PSASC, VITB12 #### [facility] [address] [place] [address] Dr. Edilson Mortensen Urea nitrogen [Mass/Vol] 12.0 mg/dL Normal 7.0-18.0 [facility] Comment on above: Performed By: #### I SAMEER, PSASC, VITB12 #### [facility] [address] [place] [address] Dr. Edilson Mortensen Urea nitrogen/Creatinine [Mass ratio] 10.8 mg/mg Normal [facility] Comment on above: Performed By: #### I SAMEER PSASC, VITB12 #### [facility] [address] [place] [address] Dr. Edilson Mortensen TSHon 06-09-2022 TSH 1.807 uIU/mL Normal 0.358-3.74 0 [facility] Comment on above: Performed By: #### I MARGE ESTRELLASC, VITB12 #### [facility] [address] [place] [address] Dr. Edilson Mortensen URIC ACID SERUMon 06-09-2022 Urate [Mass/Vol] 4.1 mg/dL Normal 3.5-7.2 [facility] Comment on above: Performed By: #### I MARGE ESTRELLASC, VITB12 #### [facility] [address] [place] [address] Dr. Edilson Mortensen VITAMIN B12on 06-09-2022 Cobalamin (Vitamin B12) [Mass/Vol] 282.0 pg/mL Normal 193.0-986. 0 [facility] Comment on above: Performed By: #### I SAMEER PSASC, VITB12 #### [facility] [address] [place] [address] Dr. Edilson Mortensen CBC AUTO DIFFon 04-15-2022 BASO # 0.1 103/ul Normal 0.0-0.1 [facility] Comment on above: Performed By: #### I SAMEER PSASC, VITB12 #### [facility] [address] [place] [address] Dr. Edilson Mortensen Basophils/100 WBC (Bld) 0.5 % Normal 0.2-2.0 [facility] Comment on above: Performed By: #### I SAMEER PSASC, VITB12 #### [facility] [address] [place] [address] Dr. Edilson Mortensen EO # 0.2 103/ul Normal 0.0-0.7 [facility] Comment on above: Performed By: #### I SAMEER PSASC, VITB12 #### [facility] [address] [place] [address] Dr. Edilson Mortensen Eosinophils/100 WBC (Bld) 1.6 % Normal 0.9-7.0 [facility] Comment on above: Performed By: #### I SAMEER PSASC, VITB12 #### [facility] [address] [place] [address] Dr. Edilson Mortensen Erythrocyte distribution width (RBC) [Ratio] 12.8 % Normal 11.0-15.0 [facility] Comment on above: Performed By: #### I SAMEER PSASC, VITB12 #### [facility] [address] [place] [address] Dr. Edilson Mortensen Hematocrit (Bld) [Volume fraction] 41.4 % Critically low 42.0-54.0 [facility] Comment on above: Performed By: #### I SAMEER PSASC, VITB12 #### [facility] [address] [place] [address] Dr. Edilson Mortensen Hemoglobin (Bld) [Mass/Vol] 14.5 g/dL Normal 14.0-18.0 [facility] Comment on above: Performed By: #### I SAMEER, PSASC, VITB12 #### [facility] [address] [place] [address] Dr. Edilson Mortensen IG # 0.12 10e3/ul Critically high 0.00-0.03 [facility] Comment on above: Performed By: #### I SAMEER, PSASC, VITB12 #### [facility] [address] [place] [address] Dr. Edilson Mortensen IG % 1.2 % Critically high 0.0-0.5 [facility] Comment on above: Performed By: #### I SAMEER, PSASC, VITB12 #### [facility] [address] [place] [address] Dr. Edilson Mortensen LYMPH # 1.9 103/ul Normal 1.2-3.8 [facility] Comment on above: Performed By: #### I SAMEER, PSASC, VITB12 #### [facility] [address] [place] [address] Dr. Edilson Mortensen Lymphocytes/100 WBC (Bld) 18.8 % Critically low 20.5-60.0 [facility] Comment on above: Performed By: #### I SAMEER, PSASC, VITB12 #### [facility] [address] [place] [address] Dr. Edilson Mortensen MANUAL DIFF REQ NO Normal [facility] Comment on above: Performed By: #### I SAMEER, PSASC, VITB12 #### [facility] [address] [place] [address] Dr. Edilson Mortensen MCH (RBC) [Entitic mass] 34.1 pg Critically high 25.9-34.0 [facility] Comment on above: Performed By: #### I SAMEER, PSASC, VITB12 #### [facility] [address] [place] [address] Dr. Edilson Mortensen MCHC (RBC) [Mass/Vol] 35.0 g/dL Normal 29.9-35.2 [facility] Comment on above: Performed By: #### I SAMEER, PSASC, VITB12 #### [facility] [address] [place] [address] Dr. Edilson Mortensen MCV (RBC) [Entitic vol] 97.4 fL Critically high 80.0-94.0 [facility] Comment on above: Performed By: #### I SAMEER, PSASC, VITB12 #### [facility] [address] [place] [address] Dr. Edilson Mortensen MONO # 1.2 103/ul Critically high 0.3-0.8 [facility] Comment on above: Performed By: #### I SAMEER, PSASC, VITB12 #### [facility] [address] [place] [address] Dr. Edilson Mortensen Monocytes/100 WBC (Bld) 12.1 % Critically high 1.7-12.0 [facility] Comment on above: Performed By: #### I SAMEER, PSASC, VITB12 #### [facility] [address] [place] [address] Dr. Edilson Mortensen NEUT # 6.7 103/ul Critically high 1.4-6.5 [facility] Comment on above: Performed By: #### I SAMEER, PSASC, VITB12 #### [facility] [address] [place] [address] Dr. Edilson Mortensen Neutrophils/100 WBC (Bld) 65.8 % Normal 43.0-75.0 [facility] Comment on above: Performed By: #### I SAMEER, PSASC, VITB12 #### [facility] [address] [place] [address] Dr. Edilson Mortensen Platelet mean volume (Bld) [Entitic vol] 8.4 fL Critically low 9.5-13.5 [facility] Comment on above: Performed By: #### I SAMEER PSASC, VITB12 #### [facility] [address] [place] [address] Dr. Edilson Mortensen PLT 312 103/ul Normal 150-450 [facility] Comment on above: Performed By: #### I SAMEER, PSASC, VITB12 #### [facility] [address] [place] [address] Dr. Edilson Mortensen RBC 4.25 106/ul Critically low 4.70-6.10 [facility] Comment on above: Performed By: #### I SAMEER, PSASC, VITB12 #### [facility] [address] [place] [address] Dr. Edilson Mortensen WBC 10.2 103/ul Normal 4.0-11.0 [facility] Comment on above: Performed By: #### I SAMEER, PSASC, VITB12 #### [facility] [address] [place] [address] Dr. Edilson Mortenesn PROF 14(COMP METB)on 022 Albumin [Mass/Vol] 3.2 g/dL Critically low 3.4-5.0 [facility] Comment on above: Performed By: #### C MP #### [facility] [address] [place] [address] Dr. Edilson Mortensen Albumin/Globulin [Mass ratio] 1.1 {ratio} Normal [facility] Comment on above: Performed By: #### C MP #### [facility] [address] [address] [address] Edilson Mortensen ALP [Catalytic activity/Vol] 153 U/L Critically high 46-116 [facility] Comment on above: Performed By: #### C MP #### [facility] [address] [place] [address] Dr. Edilson Mortensen ALT [Catalytic activity/Vol] 15 U/L Critically low 16-63 [facility] Comment on above: Performed By: #### C MP #### [facility] [address] [place] [address] Dr. Edilson Mortensen Anion gap [Moles/Vol] 11.2 mmol/L Normal [facility] Comment on above: Performed By: #### C MP #### [facility] [address] [place] [address] Dr. Edilson Mortensen AST [Catalytic activity/Vol] 10 U/L Critically low 15-37 [facility] Comment on above: Performed By: #### C MP #### [facility] [address] [place] [address] Dr. dEilson Mortensen Bilirubin [Mass/Vol] 0.4 mg/dL Normal 0.2-1.0 [facility] Comment on above: Performed By: #### C MP #### [facility] [address] [place] [address] Dr. Edilson Mortensen Calcium [Mass/Vol] 9.1 mg/dL Normal 8.5-10.1 [facility] Comment on above: Performed By: #### C MP #### [facility] [address] [place] [address] Dr. Edilson Mortensen Chloride [Moles/Vol] 105 mmol/L Normal 98-107 [facility] Comment on above: Performed By: #### C MP #### [facility] [address] [place] [address] Dr. Edilson Mortensen CO2 [Moles/Vol] 25.9 mmol/L Normal 21.0-32.0 [facility] Comment on above: Performed By: #### C MP #### [facility] [address] [place] [address] Dr. Edilson Mortensen Creatinine [Mass/Vol] 0.82 mg/dL Normal 0.70-1.30 [facility] Comment on above: Performed By: #### C MP #### [facility] [address] [place] [address] Dr. Edilson Mortensen EGFR-AF CITIZ[place] >60 Normal >=60 [facility] Comment on above: Performed By: #### C MP #### [facility] [address] [place] [address] Dr. Edilson Mortensen EGFR-NON AF CITIZEN OF [place] >60 Normal >=60 [facility] Comment on above: Performed By: #### C MP #### [facility] [address] [place] [address] Dr. Edilson Mortensen Globulin (S) [Mass/Vol] 3.0 g/dL Normal [facility] Comment on above: Performed By: #### C MP #### [facility] [address] [place] [address] Dr. Edilson Mortensen Glucose [Mass/Vol] 112 mg/dL Critically high 74-106 [facility] Comment on above: Performed By: #### C MP #### [facility] [address] [place] [address] Dr. Edilson Mortensen Potassium [Moles/Vol] 4.1 mmol/L Normal 3.5-5.1 [facility] Comment on above: Performed By: #### C MP #### [facility] [address] [place] [address] Dr. Edilson Mortensen Protein [Mass/Vol] 6.2 g/dL Critically low 6.4-8.2 [facility] Comment on above: Performed By: #### C MP #### [facility] [address] [place] [address] Dr. Edilson Mortensen Sodium [Moles/Vol] 138 mmol/L Normal 136-145 [facility] Comment on above: Performed By: #### C MP #### [facility] [address] [place] [address] Dr. Edilson Mortensen Urea nitrogen [Mass/Vol] 7.0 mg/dL Normal 7.0-18.0 [facility] Comment on above: Performed By: #### C MP #### [facility] [address] [place] [address] Dr. Edilson Mortensen Urea nitrogen/Creatinine [Mass ratio] 8.5 mg/mg Normal [facility] Comment on above: Performed By: #### C MP #### [facility] [address] [place] [address] Dr. Edilson Mortensen BNPon 04-14-2022 Natriuretic peptide B (Bld) [Mass/Vol] 120.0 pg/mL Normal <=900.0 [facility] Comment on above: Performed By: #### I SAMEER PSASC, VITB12 #### [facility] [address] [place] [address] Dr. Edilson Mortensen CBC AUTO DIFFon 04-14-2022 BASO # 0.1 103/ul Normal 0.0-0.1 [facility] Comment on above: Performed By: #### I SAMEER PSASC, VITB12 #### [facility] [address] [place] [address] Dr. Edilson Mortensen Basophils/100 WBC (Bld) 0.4 % Normal 0.2-2.0 [facility] Comment on above: Performed By: #### I SAMEER PSASC, VITB12 #### [facility] [address] [place] [address] Dr. Edilson Mortensen EO # 0.2 103/ul Normal 0.0-0.7 [facility] Comment on above: Performed By: #### I SAMEER, PSASC, VITB12 #### [facility] [address] [place] [address] Dr. Edilson Mortensen Eosinophils/100 WBC (Bld) 1.3 % Normal 0.9-7.0 [facility] Comment on above: Performed By: #### I MARGE ESTRELLASC, VITB12 #### [facility] [address] [place] [address] Dr. Edilson Mortensen Erythrocyte distribution width (RBC) [Ratio] 13.1 % Normal 11.0-15.0 [facility] Comment on above: Performed By: #### I SAMEER PSASC, VITB12 #### [facility] [address] [address] [address] Edilson Mortensen Hematocrit (Bld) [Volume fraction] 43.2 % Normal 42.0-54.0 [facility] Comment on above: Performed By: #### I SAMEER, PSASC, VITB12 #### [facility] [address] [place] [address] Dr. Edilson Mortensen Hemoglobin (Bld) [Mass/Vol] 14.3 g/dL Normal 14.0-18.0 [facility] Comment on above: Performed By: #### I SAMEER PSASC, VITB12 #### [facility] [address] [place] [address] Dr. Edilson Mortensen IG # 0.11 10e3/ul Critically high 0.00-0.03 [facility] Comment on above: Performed By: #### I SAMEER, PSASC, VITB12 #### [facility] [address] [place] [address] Dr. Edilson Mortensen IG % 0.9 % Critically high 0.0-0.5 [facility] Comment on above: Performed By: #### I SAMEER, PSASC, VITB12 #### [facility] [address] [place] [address] Dr. Edilson Mortensen LYMPH # 2.0 103/ul Normal 1.2-3.8 [facility] Comment on above: Performed By: #### I SAMEER, PSASC, VITB12 #### [facility] [address] [place] [address] Dr. Edilson Mortensen Lymphocytes/100 WBC (Bld) 15.8 % Critically low 20.5-60.0 [facility] Comment on above: Performed By: #### I SAMEER, PSASC, VITB12 #### [facility] [address] [place] [address] Dr. Edilson Mortensen MANUAL DIFF REQ NO Normal [facility] Comment on above: Performed By: #### I SAMEER, PSASC, VITB12 #### [facility] [address] [place] [address] Dr. Edilson Mortensen MCH (RBC) [Entitic mass] 33.6 pg Normal 25.9-34.0 [facility] Comment on above: Performed By: #### I SAMEER, PSASC, VITB12 #### [facility] [address] [place] [address] Dr. Edilson Mortensen MCHC (RBC) [Mass/Vol] 33.1 g/dL Normal 29.9-35.2 [facility] Comment on above: Performed By: #### I SAMEER, PSASC, VITB12 #### [facility] [address] [place] [address] Dr. Edilson Mortensen MCV (RBC) [Entitic vol] 101.6 fL Critically high 80.0-94.0 [facility] Comment on above: Performed By: #### I SAMEER, PSASC, VITB12 #### [facility] [address] [place] [address] Dr. Edilson Mortensen MONO # 1.5 103/ul Critically high 0.3-0.8 [facility] Comment on above: Performed By: #### I SAMEER, PSASC, VITB12 #### [facility] [address] [place] [address] Dr. Edilson Mortensen Monocytes/100 WBC (Bld) 11.5 % Normal 1.7-12.0 [facility] Comment on above: Performed By: #### I SAMEER, PSASC, VITB12 #### [facility] [address] [place] [address] Dr. Edilson Mortensen NEUT # 8.9 103/ul Critically high 1.4-6.5 [facility] Comment on above: Performed By: #### I SAMEER PSASC, VITB12 #### [facility] [address] [address] [address] Edilson Mortensen Neutrophils/100 WBC (Bld) 70.1 % Normal 43.0-75.0 [facility] Comment on above: Performed By: #### I SAMEER PSASC, VITB12 #### [facility] [address] [place] [address] Dr. Edilson Mortensen Platelet mean volume (Bld) [Entitic vol] 8.3 fL Critically low 9.5-13.5 [facility] Comment on above: Performed By: #### I MARGE ESTRELLASC, VITB12 #### [facility] [address] [place] [address] Dr. Edilson Mortensen PLT 328 103/ul Normal 150-450 [facility] Comment on above: Performed By: #### MARGE SCOTTSC, VITB12 #### [facility] [address] [address] [address] Edilson Mortensen RBC 4.25 106/ul Critically low 4.70-6.10 [facility] Comment on above: Performed By: #### I MARGE ESTRELLASC, VITB12 #### [facility] [address] [place] [address] Dr. Edilson Mortensen WBC 12.6 103/ul Critically high 4.0-11.0 [facility] Comment on above: Performed By: #### Nola ESTRELLA PSASC, VITB12 #### [facility] [address] [place] [address] Dr. Edilson Mortensen CTA CHEST WO W CONon -17-2 [...] The subdiaphragmatic abdominal organs included in the [id number] do not demonstrate any acute abnormality. IMPRESSION: 1. Positive for small left-sided acute pulmonary emboli. No heart strain. 2. Groundglass opacities in the lung bases. Please correlate for pneumonia versus atelectasis. 3. Ascending aorta is aneurysmal measuring 4 cm. CRITICAL findings: Spoke with Dr. Johny Collazo at 9:23 [facility] EST Electronically authenticated by: MOIZ BROWNING Date: 2022-04-14 21:31 Normal [facility] Covid-19 PCR (CVDTBH)on 03-29 SARS-CoV-2 (COVID-19) RNA KEATON+probe Ql (Unsp spec) Not detected Normal NOT DETECTED [facility] Comment on above: Result Comment: When [...] for this test is supported by the [place] of Health and Human Service's declaration that [...] used). Performed By: #### C VDTBH #### [facility] [address] [place] [address] Dr. Edilson Mortensen D-DIMERon 04-14-2022 D-DIMER 1.18 mg/L FEU Critically high <=0.59 [facility] Comment on above: Performed By: #### T HYLC #### [facility] [address] [place] [address] Dr. Edilson Mortensen D-DIMER COMMENTS SEE BELOW Normal [facility] Comment on above: Result Comment: Incr [...] hospitalization. Performed By: #### T HYLC #### [facility] [address] [place] [address] Dr. Edilson Mortensen PROF 14(COMP METB)on 022 Albumin [Mass/Vol] 3.2 g/dL Critically low 3.4-5.0 [facility] Comment on above: Performed By: #### I IRENA ESTRELLA, VITB12 #### [facility] [address] [place] [address] Dr. Edilson Mortensen Albumin/Globulin [Mass ratio] 0.8 {ratio} Normal [facility] Comment on above: Performed By: #### I IRENA ESTRELLA, VITB12 #### [facility] [address] [place] [address] Dr. Edilson Mortensen ALP [Catalytic activity/Vol] 141 U/L Critically high 46-116 [facility] Comment on above: Performed By: #### I SAMEER, PSASC, VITB12 #### [facility] [address] [address] [address] Edilson Mortensen ALT [Catalytic activity/Vol] 13 U/L Critically low 16-63 [facility] Comment on above: Performed By: #### I SAMEER, PSASC, VITB12 #### [facility] [address] [place] [address] Dr. Edilson Mortensen Anion gap [Moles/Vol] 13.7 mmol/L Normal [facility] Comment on above: Performed By: #### I SAMEER PSASC, VITB12 #### [facility] [address] [place] [address] Dr. Edilson Mortensen AST [Catalytic activity/Vol] 10 U/L Critically low 15-37 [facility] Comment on above: Performed By: #### I SAMEER PSASC, VITB12 #### [facility] [address] [place] [address] Dr. Edilson Mortensen Bilirubin [Mass/Vol] 0.2 mg/dL Normal 0.2-1.0 [facility] Comment on above: Performed By: #### I SAMEER PSASC, VITB12 #### [facility] [address] [place] [address] Dr. Edilson Mortensen Calcium [Mass/Vol] 9.0 mg/dL Normal 8.5-10.1 [facility] Comment on above: Performed By: #### I SAMEER PSASC, VITB12 #### [facility] [address] [place] [address] Dr. Edilson Mortensen Chloride [Moles/Vol] 104 mmol/L Normal 98-107 [facility] Comment on above: Performed By: #### I SAMEER PSASC, VITB12 #### [facility] [address] [place] [address] Dr. Edilson Mortensen CO2 [Moles/Vol] 27.0 mmol/L Normal 21.0-32.0 [facility] Comment on above: Performed By: #### I SAMEER, PSASC, VITB12 #### [facility] [address] [address] [address] Edilson Mortensen Creatinine [Mass/Vol] 0.88 mg/dL Normal 0.70-1.30 [facility] Comment on above: Performed By: #### I SAMEER, PSASC, VITB12 #### [facility] [address] [address] [address] Edilson Mortensen EGFR-AF CITIZEN OF [place] >60 Normal >=60 [facility] Comment on above: Performed By: #### I SAMEER, PSASC, VITB12 #### [facility] [address] [address] [address] Edilson Mortensen EGFR-NON AF CITIZEN OF [place] >60 Normal >=60 [facility] Comment on above: Performed By: #### I SAMEER, PSASC, VITB12 #### [facility] [address] [address] [address] Edilson Mortensen Globulin (S) [Mass/Vol] 3.9 g/dL Normal [facility] Comment on above: Performed By: #### I SAMEER, PSASC, VITB12 #### [facility] [address] [address] [address] Edilson Mortensen Glucose [Mass/Vol] 92 mg/dL Normal 74-106 [facility] Comment on above: Performed By: #### I SAMEER, PSASC, VITB12 #### [facility] [address] [address] [address] Edilson Mortensen Potassium [Moles/Vol] 4.0 mmol/L Normal 3.5-5.1 [facility] Comment on above: Performed By: #### I SAMEER, PSASC, VITB12 #### [facility] [address] [address] [address] Edilson Mortensen Protein [Mass/Vol] 7.1 g/dL Normal 6.4-8.2 [facility] Comment on above: Performed By: #### I SAMEER, PSASC, VITB12 #### [facility] [address] [address] [address] Edilson Mortensen Sodium [Moles/Vol] 141 mmol/L Normal 136-145 [facility] Comment on above: Performed By: #### I IRENA ESTRELLA, VITB12 #### [facility] [address] [place] [address] Dr. Edilson Mortensen Urea nitrogen [Mass/Vol] 9.0 mg/dL Normal 7.0-18.0 [facility] Comment on above: Performed By: #### I IRENA ESTRELLA, VITB12 #### [facility] [address] [place] [address] Dr. Edilson Mortensen Urea nitrogen/Creatinine [Mass ratio] 10.2 mg/mg Normal [facility] Comment on above: Performed By: #### I IRENA ESTRELLA, VITB12 #### [facility] [address] [place] [address] Dr. Edilson Mortensen PROTIMEon 04-14-2022 INR Coag (PPP) [Relative time] {INR} Normal [facility] Comment on above: Performed By: #### T HYLC #### [facility] [address] [place] [address] Dr. Edilson Mortensen INR GUIDELINES SEE BELOW Normal [facility] Comment on above: Result Comment: GERARDO RED INR: 2.0 - 3.0 CONDITIONS NOT LISTED BELOW 2.5 - 3.5 FOR PROSTHETIC HEART VALVE REPLACEMENT 2.5 - 3.5 RECURRENT THROMBOSIS Performed By: #### T HYLC #### [facility] [address] [place] [address] Dr. Edilson Mortensen PT Coag (PPP) [Time] 9.7 s Normal 9.0-11.6 [facility] Comment on above: Performed By: #### T HYLC #### [facility] [address] [place] [address] Dr. Edilson Mortensen PTTon 04-14-2022 aPTT Coag (Bld) [Time] 28.5 s Normal 22.3-36.2 [facility] Comment on above: Performed By: #### T HYLC #### [facility] [address] [place] [address] Dr. Edilson Mortensen TROPONIN, HIGH SENSITIVITYon 04-14-2022 HSTROP 6.7 pg/mL Normal 4.0-76.1 [facility] Comment on above: Result Comment: CUT- OFF POINTS HAVE BEEN ESTABLISHED BASED ON THE FOURTH UNIVERSAL DEFINITIONS OF MYOCARDIAL INFARCTION. THE UPPER REFERENCE LIMIT (URL) OF TROPONIN, DEFINED THE 99TH PERCENTILE OF cTnI DISTRIBUTION IN A REFERENCE POPULATION, HAS BEEN CONFIRMED THE DECISION THRESHOLD FOR PA DIAGNOSIS. Performed By: #### I SAMEER, PSASC, VITB12 #### [facility] [address] [address] [address] Edilson Mortensen XR CHEST 1 Von [...] by: SAMANTA JENNINGS Date: 2022-04-14 18:40 Normal [facility] XR CSPINE 2_3 VIEWSon 2021 XR [...] SAMANTA PLASCENCIA Date: 2022-03-16 07:11 Normal [facility] Activated partial thrombopla stin time (aPTT) in platelet poor plasma by coagulation aOrdered By: Antwon Hastings on 02-28-2022 aPTT Coag (PPP) [Time] 24.3 s 25.1-36.5 [facility] Albumin [Mass/volume] in Ser um or PlasmaOrdered By: Laura Yu on 02-28-2022 Albumin [Mass/Vol] 3.5 g/dL 3.2-5.5 [facility] Basophils Auto (Bld) [#/Vol] Ordered By: Antwon Hastings on 02-28-2022 Basophils (Bld) [#/Vol] 0.0 10*3/uL 0.0-0.2 [facility] Basophils Auto (Bld) [#/Vol] Ordered By: Laura Yu on 02-28-2022 Basophils (Bld) [#/Vol] 0.1 10*3/uL 0.0-0.2 [facility] Basophils/100 WBC Auto (Bld) Ordered By: Antwon Hastings on 02-28-2022 Basophils/100 WBC (Bld) 0.3 % [facility] Basophils/100 WBC Auto (Bld) Ordered By: Laura Yu on 02-28-2022 Basophils/100 WBC (Bld) 0.6 % [facility] Blood hemoglobin measurement (mass/volume)Ordered By: Antwon Hastings on 02-28-2022 Hemoglobin (Bld) [Mass/Vol] 15.3 g/dL 13.0-17.0 [facility] Blood hemoglobin measurement (mass/volume)Ordered By: Laura Yu on 02-28-2022 Hemoglobin (Bld) [Mass/Vol] 15.1 g/dL 13.0-17.0 [facility] Blood leukocytes automated c ount (number/volume)Ordered By: Antwon Hastings on 02-28-2022 WBC (Bld) [#/Vol] 13.1 10*3/uL 4.5-11.0 [facility] Blood leukocytes automated c ount (number/volume)Ordered By: Laura Yu on 02-28-2022 WBC (Bld) [#/Vol] 13.1 10*3/uL 4.5-11.0 [facility] COVID-19 Positive/NegativeOr dered By: Laura Yu on 02-28-2022 SARS-CoV-2 (COVID-19) N gene KEATON+probe Ql (Resp) Negative Negative [facility] Comment on above: Testing for SARS-CoV -2 by RT-PCR This test was developed and its performance characteristics determined by [employer] ([place]) and validated at the [facility]. This test has not been FDA [...] (COVID-19) Ag IA.rapid Ql (Resp) Negative Negative [facility] Comment on above: This is a duplicate Iraida SARS Antigen (HAILEE) result to be used for statistical tracking purpose only. Creatinine and Glomerular fi ltration rate.predicted panel (S/P/Bld)Ordered By: Antwon Hastings on 02-28-2022 Creatinine [Mass/Vol] 1.00 mg/dL 0.64-1.27 [facility] Creatinine and Glomerular fi ltration rate.predicted panel (S/P/Bld)Ordered By: Laura Yu on 02-28-2022 Creatinine [Mass/Vol] 0.97 mg/dL 0.64-1.27 [facility] Eosinophils Auto (Bld) [#/Vo l]Ordered By: Antwon Hastings on 02-28-2022 Eosinophils (Bld) [#/Vol] 0.0 10*3/uL 0.0-0.45 [facility] Eosinophils Auto (Bld) [#/Vo l]Ordered By: Laura Yu on 02-28-2022 Eosinophils (Bld) [#/Vol] 0.0 10*3/uL 0.0-0.45 [facility] Eosinophils/100 WBC Auto (Bl d)Ordered By: Antwon Hastings on 02-28-2022 Eosinophils/100 WBC (Bld) 0.4 % [facility] Eosinophils/100 WBC Auto (Bl d)Ordered By: Laura Yu on 02-28-2022 Eosinophils/100 WBC (Bld) 0.1 % [facility] Erythrocyte distribution wid th Auto (RBC) [Ratio]Ordered By: Antwon Hastings on 02-28-2022 Erythrocyte distribution width (RBC) [Ratio] 13.3 % 12.0-14.8 [facility] Erythrocyte distribution wid th Auto (RBC) [Ratio]Ordered By: Laura Yu on 02-28-2022 Erythrocyte distribution width (RBC) [Ratio] 13.3 % 12.0-14.8 [facility] Estimated glomerular filtrat ion rate (GFR) non- AmericanOrdered By: Antwon Hastings on 02-28-2022 GFR/1.73 sq M.predicted among non-blacks MDRD (S/P/Bld) [Vol rate/Area] > 60 mL/Min [facility] Estimated glomerular filtrat ion rate (GFR) non- AmericanOrdered By: Laura Yu on 02-28-2022 GFR/1.73 sq M.predicted among non-blacks MDRD (S/P/Bld) [Vol rate/Area] > 60 mL/Min [facility] Globulin Calc (S) [Mass/Vol] Ordered By: Laura Yu on 02-28-2022 Globulin (S) [Mass/Vol] 2.7 g/dL [facility] Hematocrit Auto (Bld) [Volum e fraction]Ordered By: Antwon Hastings on 02-28-2022 Hematocrit (Bld) [Volume fraction] 43.3 % 38.8-50.0 [facility] Hematocrit Auto (Bld) [Volum e fraction]Ordered By: Laura Yu on 02-28-2022 Hematocrit (Bld) [Volume fraction] 44.1 % 38.8-50.0 [facility] - Chemistry and C hemistry - challengeOrdered By: Antwon Hastings on 02-28-2022 Natriuretic peptide B (Bld) [Mass/Vol] 79.0 pg/mL 5-100 [facility] - CoagulationOrde red By: Antwon Hastings on 02-28-2022 PT Coag (PPP) [Time] 10.0 s 9.0-12.9 [facility] - CoagulationOrde red By: Laura Yu on 02-28-2022 PT Coag (PPP) [Time] 10.0 s 9.0-12.9 [facility] - Hematology and Cell countsOrdered By: Antwon Hastings on 02-28-2022 Nucleated RBC/100 WBC (Bld) [Ratio] 0.0 % 0-0.5 [facility] - Hematology and Cell countsOrdered By: Laura Yu on 02-28-2022 Nucleated RBC/100 WBC (Bld) [Ratio] 0.1 % 0-0.5 [facility] Lymphocytes Auto (Bld) [#/Vo l]Ordered By: Antwon Hastings on 02-28-2022 Lymphocytes (Bld) [#/Vol] 2.0 10*3/uL 1.00-4.8 [facility] Lymphocytes Auto (Bld) [#/Vo l]Ordered By: Laura Yu on 02-28-2022 Lymphocytes (Bld) [#/Vol] 1.2 10*3/uL 1.00-4.8 [facility] Lymphocytes/100 WBC Auto (Bl d)Ordered By: Antwon Hastings on 02-28-2022 Lymphocytes/100 WBC (Bld) 15.3 % [facility] Lymphocytes/100 WBC Auto (Bl d)Ordered By: Laura Yu on 02-28-2022 Lymphocytes/100 WBC (Bld) 9.5 % [facility] MCH Auto (RBC) [Entitic mass ]Ordered By: Antwon Hastings on 02-28-2022 MCH (RBC) [Entitic mass] 34.9 pg 27.5-35.2 [facility] MCH Auto (RBC) [Entitic mass ]Ordered By: Laura Yu on 02-28-2022 MCH (RBC) [Entitic mass] 33.9 pg 27.5-35.2 [facility] MCHC Auto (RBC) [Mass/Vol]Or dered By: Antwon Hastings on 02-28-2022 MCHC (RBC) [Mass/Vol] 35.2 g/dL 32.5-35.6 [facility] MCHC Auto (RBC) [Mass/Vol]Or dered By: Laura Yu on 02-28-2022 MCHC (RBC) [Mass/Vol] 34.3 g/dL 32.5-35.6 [facility] MCV Auto (RBC) [Entitic vol] Ordered By: Antwon Hastings on 02-28-2022 MCV (RBC) [Entitic vol] 99.0 fL 83.5-101 [facility] MCV Auto (RBC) [Entitic vol] Ordered By: Laura Yu on 02-28-2022 MCV (RBC) [Entitic vol] 98.6 fL 83.5-101 [facility] Monocytes Auto (Bld) [#/Vol] Ordered By: Antwon Hastings on 02-28-2022 Monocytes (Bld) [#/Vol] 0.8 10*3/uL 0.0-0.8 [facility] Monocytes Auto (Bld) [#/Vol] Ordered By: Laura Yu on 02-28-2022 Monocytes (Bld) [#/Vol] 1.0 10*3/uL 0.0-0.8 [facility] Monocytes/100 WBC Auto (Bld) Ordered By: Antwon Hastings on 02-28-2022 Monocytes/100 WBC (Bld) 6.2 % [facility] Monocytes/100 WBC Auto (Bld) Ordered By: Laura Yu on 02-28-2022 Monocytes/100 WBC (Bld) 7.6 % [facility] Neutrophils Auto (Bld) [#/Vo l]Ordered By: Antwon Hastings on 02-28-2022 Neutrophils (Bld) [#/Vol] 10.2 10*3/uL 1.8-7.7 [facility] Neutrophils Auto (Bld) [#/Vo l]Ordered By: Laura Yu on 02-28-2022 Neutrophils (Bld) [#/Vol] 10.8 10*3/uL 1.8-7.7 [facility] Neutrophils/100 WBC Auto (Bl d)Ordered By: Antwon Hastings on 02-28-2022 Neutrophils/100 WBC (Bld) 77.8 % [facility] Neutrophils/100 WBC Auto (Bl d)Ordered By: Laura Yu on 02-28-2022 Neutrophils/100 WBC (Bld) 82.2 % [facility] No Panel InformationOrdered By: Antwon Hastings on 02-28-2022 Estimated GFR () > 60 mL/Min [facility] Comment on above: GFR estimated refere nce range: According to KDOQI guidelines, <60 ml/min/1.73m2 is sufficient to diagnose a patient with chronic kidney disease. Pharmacy Creatinine Clearance (Chem 72.57 [facility] No Panel InformationOrdered By: Laura Yu on 02-28-2022 Estimated GFR () > 60 mL/Min [facility] Comment on above: GFR estimated refere nce range: According to KDOQI guidelines, <60 ml/min/1.73m2 is sufficient to diagnose a patient with chronic kidney disease. Pharmacy Creatinine Clearance (Chem 74.82 [facility] SARS Antigen (LFIA) [facility] Platelet mean volume Auto (B ld) [Entitic vol]Ordered By: Antwon Hastings on 02-28-2022 Platelet mean volume (Bld) [Entitic vol] 6.4 fL 6.6-10.1 [facility] Platelet mean volume Auto (B ld) [Entitic vol]Ordered By: Laura Yu on 02-28-2022 Platelet mean volume (Bld) [Entitic vol] 6.4 fL 6.6-10.1 [facility] Platelet poor plasma interna tional normalized ratio (INR) by coagulation assay (relatOrdered By: Antwon Hastings on 02-28-2022 INR Coag (PPP) [Relative time] 0.9 {INR} [facility] Comment on above: INR Therapeutic Rang [...] INR Coag (PPP) [Relative time] 0.9 {INR} [facility] Comment on above: INR Therapeutic Rang [...] 02-28-2022 Platelets (Bld) [#/Vol] 316 10*3/uL 150-450 [facility] Platelets Auto (Bld) [#/Vol] Ordered By: Laura Yu on 02-28-2022 Platelets (Bld) [#/Vol] 316 10*3/uL 150-450 [facility] Protein [Mass/volume] in Ser um or PlasmaOrdered By: Laura Yu on 02-28-2022 Protein [Mass/Vol] 6.2 g/dL 6.1-7.9 [facility] RBC Auto (Bld) [#/Vol]Ordere d By: Antwon Hastings on 02-28-2022 RBC (Bld) [#/Vol] 4.38 10*6/uL 3.90-5.60 [facility] RBC Auto (Bld) [#/Vol]Ordere d By: Laura Yu on 02-28-2022 RBC (Bld) [#/Vol] 4.47 10*6/uL 3.90-5.60 [facility] Serum or plasma alanine bowden otransferase measurement without P-5'-P (enzymatic activiOrdered By: Laura Yu on 02-28-2022 ALT No additional P-5'-P [Catalytic activity/Vol] 25 U/L 10-60 [facility] Serum or plasma albumin/glob ulin mass ratioOrdered By: Laura Yu on 02-28-2022 Albumin/Globulin [Mass ratio] 1.3 {ratio} [facility] Serum or plasma alkaline mariella sphatase measurement (enzymatic activity/volume)Ordered By: Laura Yu on 02-28-2022 ALP [Catalytic activity/Vol] 67 U/L 32-92 [facility] Serum or plasma aspartate am inotransferase measurement (enzymatic activity/volume)Ordered By: Laura Yu on 02-28-2022 AST [Catalytic activity/Vol] 14 U/L 10-42 [facility] Serum or plasma calcium carlos urement (mass/volume)Ordered By: Antwon Hastings on 02-28-2022 Calcium [Mass/Vol] 9.0 mg/dL 8.2-10.2 [facility] Serum or plasma calcium carlos urement (mass/volume)Ordered By: Laura Yu on 02-28-2022 Calcium [Mass/Vol] 9.0 mg/dL 8.2-10.2 [facility] Serum or plasma chloride french surement (moles/volume)Ordered By: Antwon Hastings on 02-28-2022 Chloride [Moles/Vol] 97 mmol/L 95-114 [facility] Serum or plasma chloride french surement (moles/volume)Ordered By: Laura Yu on 02-28-2022 Chloride [Moles/Vol] 100 mmol/L 95-114 [facility] Serum or plasma glucose carlos urement (mass/volume)Ordered By: Antwon Hastings on 02-28-2022 Glucose [Mass/Vol] 130 mg/dL 70-100 [facility] Comment on above: ADA recommended refe rence range Random Glucose Reference Range is dependent on time and content of last meal. Glucose of more than 200 mg/dL in a nonstressed, ambulatory subject supports the diagnosis of Diabetes Mellitus. Serum or plasma glucose carlos urement (mass/volume)Ordered By: Laura Yu on 02-28-2022 Glucose [Mass/Vol] 123 mg/dL 70-100 [facility] Comment on above: ADA recommended refe rence rangeRandom Glucose Reference Range is dependent on time and content of last meal. Glucose of more than 200 mg/dL in a nonstressed, ambulatory subject supports the diagnosis of Diabetes Mellitus. Serum or plasma potassium me asurement (moles/volume)Ordered By: Antwon Hastings on 02-28-2022 Potassium [Moles/Vol] 3.9 mmol/L 3.5-5.1 [facility] Serum or plasma potassium me asurement (moles/volume)Ordered By: Laura Yu on 02-28-2022 Potassium [Moles/Vol] 4.1 mmol/L 3.5-5.1 [facility] Serum or plasma sodium measu rement (moles/volume)Ordered By: Antwon Hastings on 02-28-2022 Sodium [Moles/Vol] 133 mmol/L 136-146 [facility] Serum or plasma sodium measu rement (moles/volume)Ordered By: Laura Yu on 02-28-2022 Sodium [Moles/Vol] 133 mmol/L 136-146 [facility] Serum or plasma total biliru bin measurement (mass/volume)Ordered By: Laura Yu on 02-28-2022 Bilirubin [Mass/Vol] 0.4 mg/dL 0.3-1.2 [facility] Serum or plasma total carbon dioxide measurement (moles/volume)Ordered By: Antwon Hastings on 02-28-2022 CO2 [Moles/Vol] 24.7 mmol/L 22.0-30.0 [facility] Serum or plasma total carbon dioxide measurement (moles/volume)Ordered By: Laura Yu on 02-28-2022 CO2 [Moles/Vol] 23.7 mmol/L 22.0-30.0 [facility] Serum or plasma urea nitroge n measurement (mass/volume)Ordered By: Antwon Hastings on 02-28-2022 Urea nitrogen [Mass/Vol] 13 mg/dL 07-21 [facility] Serum or plasma urea nitroge n measurement (mass/volume)Ordered By: Laura Yu on 02-28-2022 Urea nitrogen [Mass/Vol] 13 mg/dL 07-21 [facility] Amphetamine Screen Ql (U)Ord ered By: Devika De Los Santos on 02-08-2022 Amphetamines Ql (U) Negative Negative [facility] Barbiturates [Presence] in U rineOrdered By: Devika De Los Santos on 02-08-2022 Barbiturates Ql (U) Negative Negative [facility] Benzodiazepines [Presence] i n UrineOrdered By: Devika De Los Santos on 02-08-2022 Benzodiazepines Ql (U) Negative Negative [facility] Cannabinoids [Presence] in U rine by Screen methodOrdered By: Devika De Los Santos on 02-08-2022 Cannabinoids Screen Ql (U) Positive Negative [facility] Comment on above: These are unconfirme [...] on 02-08-2022 Opiates Ql (U) Negative Negative [facility] Phencyclidine Screen Ql (U)O rdered By: Devika De Los Santos on 02-08-2022 Phencyclidine Ql (U) Negative Negative [facility] Urine cocaine detectionOrder ed By: Deivka De Los Santos on 02-08-2022 Cocaine Ql (U) Negative Negative [facility] COVID-19 SOFIAOrdered By: Do henny Lara on 02-06-2022 SARS-CoV+SARS-CoV-2 (COVID-19) Ag IA.rapid Ql (Resp) Negative Negative [facility] Comment on above: This is a duplicate Iraida SARS Antigen (HAILEE) result to be used for statistical tracking purpose only. No Panel InformationOrdered By: Yury Lara on 02-06-2022 SARS Antigen (LFIA) [facility] Cardiovascular Lab Reporton 01-21-2019 Cardiovascular Lab Report [facility] Patient Name: Mary Aburto [facility] MR #: [id number] Physician: Theodora Bundy of [facility] Date: 01/21/2019 Division of Birthdate: 1960 Cardiology Room #: Adult Cardiovascular Services [address] [place] [address] Cardiovascular Laboratory Report INDICATION: The patient is [...] signed informed consent. He was brought to [facility] in a fasting state. The left wrist area was prepped and draped in usual fashion. Chas's test was favorable. Access in the left radial artery was obtained using micropuncture technique, a 6-Estonian x 11 cm Hydrophilic sheath was advanced. Verapamil was given through the sheath and heparin was administered intravenously. Bilateral selective coronary angiography was then performed using 6-Estonian JL4 and JR4 diagnostic catheters. Catheters were [...] Edwards M.D. Date Trans: 01/21/2019 04:37 P/sidney [id number] cc: Yury Lara M.D. [address], [facility] [id number] [facility] Vital Signs Date Time Vital Sign Value Performing Clinician Facility 09-16-2024 08:41-0500 Diastolic blood pressure 77 mm[Hg] Luz Hernandes [facility] 09-16-2024 08:41-0500 Heart rate 52 /min Luz [facility]epend[facility] 09-16-2024 08:41-0500 Mean blood pressure 88 mm[Hg] Luz [facility]epend[facility] 09-16-2024 08:41-0500 Respiratory rate 16 /min Luz [facility] 09-16-2024 08:41-0500 Systolic blood pressure 110 mm[Hg] Luz [facility]epend[facility] 08-05-2024 08:19-0400 Diastolic blood pressure 69 mm[Hg] Luz [facility]epend[facility] 08-05-2024 08:19-0400 Heart rate 60 /min Luz [facility] 08-05-2024 08:19-0400 Mean blood pressure 80 mm[Hg] Luz Independ[facility] 08-05-2024 08:19-0400 Respiratory rate 14 /min Luzcanelo Hernand[facility] 08-05-2024 08:19-0400 Systolic blood pressure 103 mm[Hg] Luzcanelo Hernandes [facility] 07-15-2024 15:26-0400 Blood Pressure Location Henrique NILL [facility] 07-15-2024 15:26-0400 Diastolic blood pressure 86 mm[Hg] Henrique NILL [facility] 07-15-2024 15:26-0400 Heart rate 72 /min Henrique NILL [facility] 07-15-2024 15:26-0400 Respiratory rate 16 /min Henrique KAVYAL [facility] 07-15-2024 15:26-0400 Systolic blood pressure 126 mm[Hg] Henrique NILL [facility] 06-25-2024 08:42-0400 Diastolic blood pressure 64 mm[Hg] Luz Hernandes [facility] 06-25-2024 08:42-0400 Heart rate 59 /min Luz Hern[facility] 06-25-2024 08:42-0400 Mean blood pressure 78 mm[Hg] Luz Hernandes [facility] 06-25-2024 08:42-0400 Respiratory rate 16 /min Luz Hern[facility] 06-25-2024 08:42-0400 Systolic blood pressure 106 mm[Hg] Luz Hernandes [facility] 06-09-2024 09:09-0400 Heart rate 66 /min Damián Estrada [facility] 06-09-2024 09:09-0400 SaO2% (BldA) [Mass fraction] 98 % Steel Sean [facility] 06-09-2024 09:09-0400 Diastolic blood pressure 79 mm[Hg] Damián Estrada [facility] 06-09-2024 09:09-0400 Mean blood pressure 104 mm[Hg] Damián Estrada [facility] 06-09-2024 09:09-0400 Systolic blood pressure 154 mm[Hg] Steel Sean [facility] 06-09-2024 09:09-0400 Respiratory rate 16 /min Damián Sean [facility] 06-09-2024 08:55-0400 Diastolic blood pressure 86 mm[Hg] Damián Sean [facility] 06-09-2024 08:55-0400 Heart rate 74 /min Steel Sean [facility] 06-09-2024 08:55-0400 Respiratory rate 14 /min Steel Sean [facility] 06-09-2024 08:55-0400 SaO2% (BldA) [Mass fraction] 96 % Damián Sean [facility] 06-09-2024 08:55-0400 Systolic blood pressure 125 mm[Hg] Steel Sean [facility] 06-09-2024 07:47-0400 Heart rate 86 /min Damián Sean [facility] 06-09-2024 07:47-0400 SaO2% (BldA) [Mass fraction] 94 % Damián Estrada [facility] 06-09-2024 07:47-0400 Respiratory rate 16 /min Damián Estr[facility] 06-09-2024 07:47-0400 Body temperature 98.24 [degF] Damián Estrada [facility] 06-09-2024 07:45-0400 Diastolic blood pressure 77 mm[Hg] Damián Estrada [facility] 06-09-2024 07:45-0400 Mean blood pressure 89 mm[Hg] Damián Estrada [facility] 06-09-2024 07:45-0400 Systolic blood pressure 112 mm[Hg] Damián Estrada [facility] 05-26-2024 07:45-0400 Heart rate 59 /min Damián Estr[facility] 05-26-2024 07:45-0400 SaO2% (BldA) [Mass fraction] 97 % Damián Estrada [facility] 05-26-2024 07:44-0400 Body temperature 97.52 [degF] Damián Estrada [facility] 05-26-2024 07:44-0400 Diastolic blood pressure 80 mm[Hg] Damián Estrada [facility] 05-26-2024 07:44-0400 Mean blood pressure 93 mm[Hg] Damián Estrada [facility] 05-26-2024 07:44-0400 Systolic blood pressure 120 mm[Hg] Damián Estrada [facility] 05-26-2024 07:44-0400 Respiratory rate 16 /min Damián [facility]str[facility] 04-10-2024 08:31-0400 Body height 177.8 cm MD Yury Lara Work Phone: [facility] 04-10-2024 08:31-0400 Body mass index (BMI) [Ratio] 21.8 kg/m2 MD Yury Lara Work Phone: [facility] 04-10-2024 08:31-0400 Body weight 68.94 kg MD Yury Lara Work Phone: [facility] 02-28-2024 15:25-0400 Diastolic blood pressure 85 mm[Hg] Damián Estrada [facility] 02-28-2024 15:25-0400 Heart rate 76 /min Damián Estr[facility] 02-28-2024 15:25-0400 Mean blood pressure 97 mm[Hg] Damián Estrada [facility] 02-28-2024 15:25-0400 Respiratory rate 16 /min Damián [facility]str[facility] 02-28-2024 15:25-0400 Systolic blood pressure 120 mm[Hg] Damián Estrada [facility] 01-23-2024 15:12-0400 Heart rate 58 /min Damián Estr[facility] 01-23-2024 15:12-0400 SaO2% (BldA) [Mass fraction] 97 % Damián Estrada [facility] 01-23-2024 15:12-0400 Diastolic blood pressure 84 mm[Hg] Damián [facility]strada [facility] 01-23-2024 15:12-0400 Mean blood pressure 102 mm[Hg] Damián Estrada [facility] 01-23-2024 15:12-0400 Systolic blood pressure 139 mm[Hg] Steel Sean [facility] 01-23-2024 14:59-0400 Diastolic blood pressure 95 mm[Hg] Steel Sean [facility] 01-23-2024 14:59-0400 Heart rate 55 /min Damián Estrada [facility] 01-23-2024 14:59-0400 SaO2% (BldA) [Mass fraction] 100 % Damián Estrada [facility] 01-23-2024 14:59-0400 Systolic blood pressure 129 mm[Hg] Damián Estrada [facility] 01-23-2024 14:32-0400 Heart rate 56 /min Damián [facility]str[facility] 01-23-2024 14:32-0400 SaO2% (BldA) [Mass fraction] 98 % Damián Estr[facility] 01-23-2024 14:32-0400 Body temperature 97.52 [degF] Damián [facility]strada [facility] 01-23-2024 14:31-0400 Diastolic blood pressure 83 mm[Hg] Damián [facility]str[facility] 01-23-2024 14:31-0400 Mean blood pressure 98 mm[Hg] Damián [facility]str[facility] 01-23-2024 14:31-0400 Systolic blood pressure 126 mm[Hg] Damián [facility]str[facility] 01-23-2024 14:30-0400 Respiratory rate 14 /min Damián [facility]str[facility] 12-06-2023 10:29-0500 Respiratory rate 16 /min Steel Sean [facility] 10-18-2023 14:49-0500 Diastolic blood pressure 80 mm[Hg] Damián Sean [facility] 10-18-2023 14:49-0500 Heart rate 58 /min Damián Estr[facility] 10-18-2023 14:49-0500 Mean blood pressure 89 mm[Hg] Damián Estrada [facility] 10-18-2023 14:49-0500 Respiratory rate 16 /min Damián [facility]str[facility] 10-18-2023 14:49-0500 Systolic blood pressure 108 mm[Hg] Damián Estrada [facility] 08-14-2023 15:40-0400 Body height 177.8 cm Antwon Hastings Other [employer] Other 08-14-2023 15:40-0400 Body mass index (BMI) [Ratio] 22.24 kg/m2 Antwon Hatsings Other [employer] Other 08-14-2023 15:40-0400 Body weight 70.31 kg Antwon Hastings Other [employer] Other 04-03-2023 15:40-0400 Body height 177.8 cm Antwon Hastings Other [employer] Other 04-03-2023 15:40-0400 Body mass index (BMI) [Ratio] 7.32 kg/m2 Antwon Hastings Other [employer] Other 04-03-2023 15:40-0400 Body weight 23.13 kg Antwon Hastings Other [employer] Other 02-27-2023 14:00-0400 Body height 177.8 cm Antwon Hastings Other [employer] Other 02-27-2023 14:00-0400 Body mass index (BMI) [Ratio] 21.66 kg/m2 Antwon Hastings Other [employer] Other 02-27-2023 14:00-0400 Body weight 68.49 kg Antwon Hastings Other [employer] Other 02-27-2023 14:00-0400 Diastolic blood pressure 80 mm[Hg] Antwon Hastings Other [facility] [employer] Other 02-27-2023 14:00-0400 Systolic blood pressure 128 mm[Hg] Antwon Hastings Other [facility] [employer] Other 02-14-2023 07:57-0400 Body temperature 97.5 [degF] MD Yury Lara Work Phone: [facility] 02-14-2023 07:57-0400 Diastolic blood pressure 85 mm[Hg] MD Yury Lara Work Phone: [facility] 02-14-2023 07:57-0400 Heart rate 89 /min MD Yury Lara Work Phone: [facility] 02-14-2023 07:57-0400 Respiratory rate 18 /min MD Yury Lara Work Phone: [facility] 02-14-2023 07:57-0400 SaO2% (BldA) [Mass fraction] 97 % MD Yury Lara Work Phone: [facility] 02-14-2023 07:57-0400 Systolic blood pressure 135 mm[Hg] MD Yury Lara Work Phone: [facility] 02-14-2023 06:00-0400 Body weight 75.9 kg MD Yury Lara Work Phone: [facility] 02-13-2023 08:32-0400 Inhaled oxygen flow rate 2 L/min MD Yury Lara Work Phone: [facility] 02-12-2023 07:33-0400 Body mass index (BMI) [Ratio] 22.4 kg/m2 MD Yury Lara Work Phone: [facility] 02-12-2023 07:00-0400 Body height 175.26 cm MD Yury Lara Work Phone: [facility] 01-11-2023 09:40-0400 Body height 177.8 cm Antwon Hastings Other [employer] Other 01-11-2023 09:40-0400 Body mass index (BMI) [Ratio] 20.37 kg/m2 Antwon Hastings Other [employer] Other 01-11-2023 09:40-0400 Body weight 64.41 kg Antwon Hastings Other [employer] Other 01-11-2023 09:40-0400 Diastolic blood pressure 90 mm[Hg] Antwon Hastings Other [employer] Other 01-11-2023 09:40-0400 Systolic blood pressure 128 mm[Hg] Antwon Hastings Other [employer] Other 12-07-2022 12:40-0500 Body height 177.8 cm Antwon Hastings Other [employer] Other 12-07-2022 12:40-0500 Body mass index (BMI) [Ratio] 20.37 kg/m2 Antwon Hastings Other [employer] Other 12-07-2022 12:40-0500 Body weight 64.41 kg Antwon Hastings Other [employer] Other 12-07-2022 12:40-0500 Respiratory rate 16 /min Antwon Hastings Other [employer] Other 08-01-2022 10:00-0400 Body height 177.8 cm Antwon Hastings Other [employer] Other 08-01-2022 10:00-0400 Body mass index (BMI) [Ratio] 20.37 kg/m2 Antwon Hastings Other [employer] Other 08-01-2022 10:00-0400 Body weight 64.41 kg Antwon Hastings Other [employer] Other 05-11-2022 11:40-0400 Body height 177.8 cm Antwon Hastings Other [employer] Other 05-11-2022 11:40-0400 Body mass index (BMI) [Ratio] 20.37 kg/m2 Antwon Hastings Other [employer] Other 05-11-2022 11:40-0400 Body weight 64.41 kg Antwon Hastings Other [employer] Other 03-16-2022 10:00-0400 Body height 177.8 cm Antwon Hastings Other [employer] Other 03-16-2022 10:00-0400 Body mass index (BMI) [Ratio] 20.43 kg/m2 Antwon Hastings Other [employer] Other 03-16-2022 10:00-0400 Body weight 64.59 kg Antwon Hastings Other [employer] Other 03-02-2022 15:59-0400 Body temperature 97.6 [degF] MD Yury Lara Work Phone: [facility] 03-02-2022 15:59-0400 Diastolic blood pressure 86 mm[Hg] MD Yury Lara Work Phone: [facility] 03-02-2022 15:59-0400 Heart rate 82 /min MD Yury Lara Work Phone: [facility] 03-02-2022 15:59-0400 Respiratory rate 16 /min MD Yury Lara Work Phone: [facility] 03-02-2022 15:59-0400 SaO2% (BldA) [Mass fraction] 95 % MD Yury Lara Work Phone: [facility] 03-02-2022 15:59-0400 Systolic blood pressure 144 mm[Hg] MD Yury Lara Work Phone: [facility] 03-02-2022 05:30-0400 Body weight 69 kg MD Yury Lara Work Phone: [facility] 03-01-2022 19:34-0400 Inhaled oxygen flow rate 2 L/min MD Yury Lara Work Phone: [facility] 03-01-2022 16:00-0400 Body height 175.26 cm MD Yury Lara Work Phone: [facility] 03-01-2022 09:37-0400 Body mass index (BMI) [Ratio] 22.4 kg/m2 MD Yury Lara Work Phone: [facility] 02-28-2022 12:21-0400 Diastolic blood pressure 102 mm[Hg] MD Yury Lara Work Phone: [facility] 02-28-2022 12:21-0400 Heart rate 60 /min MD Yury Lara Work Phone: [facility] 02-28-2022 12:21-0400 Respiratory rate 20 /min MD Yury Lara Work Phone: [facility] 02-28-2022 12:21-0400 SaO2% (BldA) [Mass fraction] 98 % MD Yury Lara Work Phone: [facility] 02-28-2022 12:21-0400 Systolic blood pressure 163 mm[Hg] MD Yury Lara Work Phone: [facility] 02-28-2022 11:16-0400 Body temperature 98 [degF] MD Yury Lara Work Phone: [facility] 02-28-2022 08:55-0400 Body height 175.26 cm MD Yury Lara Work Phone: [facility] 02-28-2022 08:55-0400 Body mass index (BMI) [Ratio] 21.2 kg/m2 MD Yury Lara Work Phone: [facility] 02-28-2022 08:55-0400 Body weight 65.31 kg MD Yury Lara Work Phone: [facility] 02-23-2022 09:20-0400 Body height 177.8 cm Antwon Hastings Other [employer] [facility] [employer] Other 02-23-2022 09:20-0400 Body mass index (BMI) [Ratio] 20.66 kg/m2 Antwon Hastings Other [employer] Other 02-23-2022 09:20-0400 Body weight 65.32 kg Antwon Hastings Other [employer] Other 02-08-2022 16:10-0400 Diastolic blood pressure 81 mm[Hg] MD Yury Lara Work Phone: [facility] 02-08-2022 16:10-0400 Heart rate 59 /min MD Yury Lara Work Phone: [facility] 02-08-2022 16:10-0400 Respiratory rate 16 /min MD Yury Lara Work Phone: [facility] 02-08-2022 16:10-0400 SaO2% (BldA) [Mass fraction] 100 % MD Yury Lara Work Phone: [facility] 02-08-2022 16:10-0400 Systolic blood pressure 132 mm[Hg] MD Yury Lara Work Phone: [facility] 02-08-2022 15:41-0400 Body height 175.26 cm MD Yury Lara Work Phone: [facility] 02-08-2022 15:41-0400 Body mass index (BMI) [Ratio] 21.4 kg/m2 MD Yury Lara Work Phone: [facility] 02-08-2022 15:41-0400 Body weight 66 kg MD Yury Lara Work Phone: [facility] 02-08-2022 12:36-0400 Body temperature 98.5 [degF] MD Yury Lara Work Phone: [facility] 01-26-2022 07:47-0400 Diastolic blood pressure 100 mm[Hg] MD Yury Lara Work Phone: [facility] 01-26-2022 07:47-0400 Heart rate 80 /min MD Yury Lara Work Phone: [facility] 01-26-2022 07:47-0400 Respiratory rate 16 /min MD Yury Lara Work Phone: [facility] 01-26-2022 07:47-0400 SaO2% (BldA) [Mass fraction] 98 % MD Yury Lara Work Phone: [facility] 01-26-2022 07:47-0400 Systolic blood pressure 147 mm[Hg] MD Yury Lara Work Phone: [facility] 01-26-2022 07:43-0400 Body height 175.26 cm MD Yury Lara Work Phone: [facility] 01-26-2022 07:43-0400 Body weight 63.5 kg MD Yury Lara Work Phone: [facility] Encounters Encounter Date Encounter Type Care Provider Facility Start: 11-12-2024 End: 11-12-2024 Bamboo denzel Berry DO Work Phone: [facility] Start: 11-12-2024 End: 11-12-2024 Bamboo flowsheet Rayne Berry DO Work Phone: [facility] Start: 11-12-2024 End: 11-12-2024 oscar Edouard ZAHLER Not Available Start: 11-12-2024 End: 11-12-2024 Office outpatient new 45 minutes Rayne Brery DO Work Phone: [facility] Comment on above: Age-related nuclear cataract of both eyes (Primary Dx) Start: 09-16-2024 End: 09-16-2024 ambulatory Luz Hernandes Facility:[facility] Start: 09-16-2024 End: 09-16-2024 Patient encounter procedure Luz Hernandes [facility] Start: 09-02-2024 End: 09-02-2024 Patient encounter [...] Start: 08-05-2024 End: 08-05-2024 ambulatory Luz Hernandes Facility:[facility] Start: 08-05-2024 End: 08-05-2024 Patient encounter procedure Luz Hernandes [facility] Start: 07-15-2024 End: 07-15-2024 ambulatory Henrique DIOP Facility:[facility] Start: 07-15-2024 End: 07-15-2024 Patient encounter procedure Henrique DIOP [facility] Start: 06-25-2024 End: 06-25-2024 ambulatory Luz Hernandes Facility:[facility] Start: 06-25-2024 End: 06-25-2024 Pain Management Luz Hernandes [facility] Start: 06-09-2024 End: 06-09-2024 ambulatory Damián Estrada Facility:[facility] Start: 06-09-2024 End: 06-09-2024 Pain Management Damián Estrada [facility] Start: 05-26-2024 End: 05-26-2024 ambulatory Damián Estrada Facility:[facility] Start: 05-26-2024 End: 05-26-2024 Pain Management Damián Estrada [facility] Start: 05-19-2024 End: 05-19-2024 ambulatory [facility] Start: 04-10-2024 End: 04-10-2024 Patient encounter procedure MD Yury Lara Work Phone: [facility] Neurosurgery Work Phone: Start: 04-10-2024 End: 04-10-2024 ambulatory MD Yury Lara Work Phone: [facility] Work Phone: Start: 02-28-2024 End: 02-28-2024 ambulatory DO Damián Estrada Facility:[facility] Start: 02-28-2024 End: 02-28-2024 Pain Management Damián Estrada [facility] Start: 01-23-2024 End: 01-23-2024 ambulatory DO Damián Estrada Facility:[facility] Start: 01-23-2024 End: 01-23-2024 Pain Management Damián Estr[facility] Start: 12-20-2023 End: 12-20-2023 ambulatory [facility] Start: 12-06-2023 End: 12-06-2023 ambulatory Damián Estrada Facility:[facility] Start: 12-06-2023 End: 12-06-2023 Pain Management Damián Estr[facility] Start: 12-05-2023 End: 12-07-2023 Pre-admission assessment Damián Estrada [facility] Start: 10-18-2023 End: 11-30-2023 Pre-admission assessment Damián Estrada [facility] Start: 10-18-2023 End: 10-18-2023 Pain Management Steel SnowAnya Estrada [facility] Start: 10-12-2023 End: 10-12-2023 ambulatory Antwon Hastings Other [employer] [facility] [employer] Other Start: 10-12-2023 Telephone encounter Antwon Hastings [facility] Neurosurgery Start: 08-29-2023 End: 08-29-2023 ambulatory Antwon Hastings Other [employer] Other Start: 08-29-2023 Telephone encounter Antwon Hastings [facility] Helpdesk Technician Start: 08-14-2023 End: 08-14-2023 Patient encounter procedure MD Yury Lara Work Phone: [facility] Work Phone: Start: 08-14-2023 End: 08-14-2023 ambulatory MD Yury Lara Work Phone: [facility] Work Phone: Start: 08-14-2023 Office outpatient vi sit 25 minutes Antwon Hastings [facility] Neurosurgery Start: 05-22-2023 End: 05-22-2023 Patient encounter procedure MD Yury Lara Work Phone: [facility] Work Phone: Start: 05-22-2023 End: 05-22-2023 ambulatory Antwon Hastings Facility:[facility] Start: 04-23-2023 End: 04-23-2023 ambulatory Antwon Hastings Other [employer] Other Start: 04-23-2023 Telephone encounter Antwon Hastings [facility] Neurosurgery Start: 04-16-2023 End: 04-16-2023 ambulatory Antwon Hastings Other [employer] Other Start: 04-16-2023 Telephone encounter Antwon Hastings [facility] Neurosurgery Start: 04-03-2023 End: 04-03-2023 Patient encounter procedure MD Yury Lara Work Phone: [facility] Work Phone: Start: 04-03-2023 End: 04-03-2023 ambulatory MD Yury Lara Work Phone: [facility] Work Phone: Start: 04-03-2023 Office outpatient vi sit 15 minutes Antwon Hastings [facility] Neurosurgery Start: 03-27-2023 End: 03-27-2023 ambulatory Antwon Hastings Other [facility] [employer] Other Start: 03-27-2023 Telephone encounter Antwon Hastings [facility] Neurosurgery Start: 03-05-2023 End: 03-05-2023 ambulatory Antwon Hastings Other [facility] [employer] Other Start: 03-05-2023 Telephone encounter Antwon Hastings [facility] Neurosurgery Start: 02-27-2023 End: 02-27-2023 ambulatory Antwon Hastings Other [facility] [employer] Other Start: 02-27-2023 Postop follow up vis it related to original px Antwon Venkata [facility] Neurosurgery Start: 02-26-2023 End: 02-26-2023 ambulatory Antwon Hastings Other [facility] [employer] Other Start: 02-26-2023 Telephone encounter Antwon Hastings [facility] Start: 02-24-2023 End: 02-24-2023 ambulatory Antwon Hastings Other [facility] [employer] Other Start: 02-24-2023 Telephone encounter Antwon Hastings [facility] Start: 02-23-2023 End: 02-23-2023 ambulatory Antwon Hastings Other [facility] [employer] Other Start: 02-23-2023 Telephone encounter Antwon Hastings [facility] Start: 02-17-2023 End: 02-17-[address] YURY LARA . Facility: Start: 02-12-2023 End: 02-14-2023 Evaluation and management of inpatient MD Yury Lara Work Phone: [facility]-[address] [place] [address] Work Phone: Start: 01-29-2023 End: 01-29-2023 ambulatory MD Yury Lara Work Phone: [facility] Work Phone: Start: 01-29-2023 End: 01-29-2023 Patient encounter procedure MD Yury Lara Work Phone: [facility]-Pre-Surgical Testing Work Phone: Start: 01-11-2023 End: 01-11-2023 ambulatory Antwon Hastings Other [facility] [employer] Other Start: 01-11-2023 Office outpatient vi sit 40 minutes Antwon Hastings [facility] Start: 12-25-2022 End: 12-25-2022 ambulatory MD Yury Lara Work Phone: [facility] Work Phone: Start: 12-25-2022 End: 12-25-2022 Patient encounter procedure MD Yury Lara Work Phone: [facility]-MRI [facility] [place] Work Phone: Start: 12-07-2022 End: 12-07-2022 ambulatory Antwon Venkata Other [employer] Other Start: 12-07-2022 Office outpatient vi sit 15 minutes Antwon Hastings [facility] Start: 11-13-2022 End: 11-13-[address] YURY LARA . Facility:[facility] Start: 10-23-2022 End: 10-23-2022 ambulatory MD Yury Lara Work Phone: [facility] Work Phone: Start: 10-23-2022 End: 10-23-2022 Patient encounter procedure MD Yury Lara Work Phone: [facility]XRay [facility] [place] Work Phone: Start: 09-26-[address] YURY LARA . Facili ty:[facility] Start: 08-01-2022 End: 08-01-2022 ambulatory Antwon Hastings Other [employer] Other Start: 08-01-2022 Office outpatient vi sit 15 minutes Antwon Hastings [facility] Start: 07-13-2022 End: 07-14-[address] YURY LARA . Facility:[facility] Start: 07-06-2022 End: 07-07-[address] YURY LARA . Facility:[facility] Start: 06-09-2022 End: 06-10-[address] YURY LARA . Facility:[facility] Start: 05-11-2022 End: 05-11-2022 ambulatory Antwon Hastings Other [employer] Other Start: 05-11-2022 Postop follow up vis it related to original px Antwon Hastings [facility] Start: 05-11-2022 End: 05-11-2022 Patient encounter procedure MD Yury Lara Work Phone: [facility] [place] Start: 04-15-2022 End: 04-15-[address] YURY LARA . Facility:[facility] Start: 03-23-2022 End: 03-23-2022 ambulatory Antwon Hastings Other [employer] Other Start: 03-23-2022 Telephone encounter Antwon Hastings [facility] Neurosurgery Start: 03-16-2022 End: 03-16-2022 ambulatory Antwonmaria l Hastings Other [employer] Other Start: 03-16-2022 Postop follow up vis it related to original px Antwon Hastings [facility] Neurosurgery Start: 03-15-2022 End: 03-16-[address] ANTWON HASTINGS Facility:[facility] Start: 03-07-2022 End: 03-07-2022 ambulatory Lele Fong Other [employer] Other Start: 03-07-2022 Telephone encounter Lele Quiñones [facility] Start: 03-02-[address] Rigo Hughes Fac ility:[facility] Start: 03-01-2022 Admission to same da y surgery center Antwonmaria l Hastings [facility] Start: 03-01-2022 End: 03-01-2022 ambulatory Antwonmaria l Hastings Other [employer] Other Start: 02-28-2022 End: 03-02-2022 Evaluation and management of inpatient MD Yury Lara Work Phone: [facility] [place] [facility] Start: 02-28-[address] Rigo Hughes Facility:[id number] Start: 02-23-2022 End: 02-23-2022 ambulatory Antwon Hastings Other [employer] Other Start: 02-23-2022 Office outpatient ne w 60 minutes Antwon Hastings [facility] Neurosurgery Start: 02-08-2022 End: 02-08-2022 Admission to same day surgery center MD Yury Lara Work Phone: [facility]-Surgery Center [facility] [place] Start: 02-06-2022 End: 02-06-2022 Patient encounter procedure MD Yury Lara Work Phone: [facility]-Pre-Surgical Testing Start: 01-26-2022 End: 01-26-2022 Patient encounter procedure MD Yury Lara Work Phone: [facility] [place] Start: 01-21-2019 End: 01-22-2019 Patient encounter procedure PROVIDER UNKNOWN Facility:[facility] Procedures Date Procedure Procedure [...] By: #### I SAMEER, PSASC, VITB12 #### [facility] [address] [place] [address] Dr. Edilson Mortensen Start: 05-11-2022 X-ray of [...] Bone structure of cl avicle (body structure) aDmián Estrada Cervical laminectomy Agatha Estrada Closed fracture of clavicle (disorder) Henrique DIOP Plan of Treatment Date Care Activity Detail Author Start: 11-12-2024 End: 11-12-2024 Patient encounter procedure 11/12/2024 10:45 AM EST Office Visit [facility] [address] [place] [address] Rayne Berry, DO [address] [place] [address] [facility] Start: 09-02-2024 End: 09-02-2024 Patient encounter procedure 09/02/2024 4:00 PM EST Procedure Visit [facility] [address] [place] [address] Devika Champagne, DO [address] [place] [address] Arrived [facility] Comment on above: Arrived Start: 06-29-2024 Influenza vaccination Influenza Vacc ine (#1) [facility] Start: 04-10-2024 Patient referral [facility] Work Phone: Start: 02-14-2023 [facility] Start: 02-12-2023 Fusion of 2 or more Cervical Vertebral Joints with Autologous Tissue Substitute, Posterior Approach, Posterior Column, Open Approach Fusion of 2 or more Cervical Vertebral Joints with Autologous Tissue Substitute, Posterior Approach, Posterior Column, Open Approach [facility] Start: 02-12-2023 Fusion of Cervicotho racic Vertebral Joint with Autologous Tissue Substitute, Posterior Approach, Posterior Column, Open Approach Fusion of Cervicothoracic Vertebral Joint with Autologous Tissue Substitute, Posterior Approach, Posterior Column, Open Approach [facility] Start: 02-12-2023 Fusion of Thoracic Vertebral Joint with Autologous Tissue Substitute, Posterior Approach, Posterior Column, Open Approach Fusion of Thoracic Vertebral Joint with Autologous Tissue Substitute, Posterior Approach, Posterior Column, Open Approach [facility] Start: 02-12-2023 Removal of Internal Fixation Device from Cervical Vertebral Joint, Open Approach Removal of Internal Fixation Device from Cervical Vertebral Joint, Open Approach [facility] Start: 10-23-2022 X-ray of cervical spine XR cer v spine AP/LAT/FLX/EXT [facility] Start: 10-23-2022 XR Cervical spine 4 Views [facility] Start: 03-01-2022 X-ray of cervical spine XR cervical spine 2V [facility] Start: 02-28-2022 Fusion of 2 or more Cervical Vertebral Joints with Synthetic Substitute, Posterior Approach, Posterior Column, Open Approach [facility] Start: 02-28-2022 Introduction of Recombinant Bone Morphogenetic Protein into Joints, Open Approach [facility] Start: 02-08-2022 OR CAT/MRI W/ IV SED ATION (Not Applicable) OR CAT/MRI W/ IV SEDATION (Not Applicable) [facility] Start: 02-08-2022 MRI of cervical spin e with contrast MR cervical spine wo/w con [facility] Start: 1960 Screening for malign ant neoplasm of colon [facility] Patient Education Moderate and D eep Sedation in Adults General Anesthesia (DC) [facility] Work Phone: Patient referral [facility] Work Phone: Immunizations Immunization Date Immunization Notes Care Provider [facility] 08-25-2022 influenza virus vaccine, unspecified formulation Devika Champagne DO Work Phone: [facility] 11-09-2021 COVID-19 mRNA, Comirnaty (Pfizer) MD Yury Lara Work Phone: [facility] 02-28-2021 COVID-19 mRNA, Comirnaty (Pfizer) MD Yury Lara Work Phone: [facility] 02-07-2021 COVID-19 mRNA, Comirnaty (Pfizer) MD Yury Lara Work Phone: [facility] 07-31-2019 influenza virus vaccine, unspecified formulation Damián Estrada [facility] [place] Payers Date Payer Category Payer Self-pay [id number] 2024 Medicaid [employer] MEDICARE A DVANTAGE [id number] 2024 Medicare [id number] 2024 Medicare MEDICARE [id number] 2023 Medicare [id number] 2023 Self-pay [id number] 2023 Private Health Insurance [employer] [id number] 1960 Unknown [id number] ..840.1.337249.3.579.2. 647 1962 Unknown [id number] 2.16.840.1.743954.3.579.2. 356 1962 Unknown [id number] 2.16.840.1.895768.3.579.2. 356 1962 Unknown [id number] 2.16.840.1.852654.3.579.2. 593 1962 Unknown [id number] 2.16.840.1.549980.3.579.2. 593 1962 Unknown [id number] 2.16.840.1.151471.3.579.2. 593 1962 Unknown [id number] 2.16.840.1.013352.3.579.2. 593 1962 Unknown [id number] 2.16.840.1.223173.3.579.2. 593 1962 Unknown [id number] 2.16.840.1.356715.3.579.2. 593 1962 Unknown [id number] 2.16.840.1.045264.3.579.2. 593 1962 Unknown [id number] 2.16.840.1.890525.3.579.2. 593 1962 Unknown [id number] 2.16.840.1.910119.3.579.2. 1259 1962 Unknown [id number] 2.16.840.1.164378.3.579.2. 1259 1962 Unknown [id number] 2.16.840.1.526672.3.579.2. 727 1962 Unknown [id number] 2.16.840.1.691923.3.579.2. 727 1962 Unknown [id number] 2.16.840.1.663828.3.579.2. 727 1962 Unknown [id number] 2.16.840.1.074649.3.579.2. 727 1962 Unknown [id number] 2.16.840.1.731049.3.579.2. 727 1962 Unknown [id number] 2.16.840.1.769299.3.579.2. 727 1962 Unknown [id number] 2.16.840.1.698238.3.579.2. 727 1962 Unknown [id number] 2.16.840.1.151621.3.579.2. 727 1962 Unknown [id number] 2.16.840.1.116391.3.579.2. 727 1959 Unknown [id number] 1959 Unknown [id number] 2.16.840.1.643015.19 Unknown Unknown [id number] 2.16.840.1.433211.3.579.2. 531 Unknown [id number] 2.16.840.1.546457.3.579.2. 531 Unknown [id number] 2.16.840.1.001954.3.579.2. 531 Social History Date Type Detail Facility Tobacco smoking status [facility] Unknown if ever smoked [facility] Work Phone: Start: 1960 Sex Assigned At Male F [facility] Start: 02-08-2022 End: 11-12-2024 Tobacco smoking status RIIS Ex-smoker (finding) [facility] Start: 02-28-2022 Tobacco smoking status RIIS Never smoked tobacco (finding) [facility] Start: 11-12-2024 Sex Assigned At F [facility] Tobacco smoking status Never [facility] Tobacco smoking status RIIS Tobacco smoking consumption unknown [facility] Start: [...] approach Bone-screw internal spinal fixation system, non-sterile ()[id number] FDA Start: 03-01-2022 Decompression, spine, cervical, posterior approach Bone-screw internal spinal fixation system, non-sterile ()[id number] FDA Start: 03-01-2022 Decompression, spine, cervical, posterior approach Bone-screw internal spinal fixation system, non-sterile ()[id number] FDA Start: 03-01-2022 Decompression, spine, cervical, posterior approach Bone-screw internal spinal fixation system, non-sterile ()[id number] FDA Start: 03-01-2022 Decompression, spine, cervical, posterior approach Spinal fusion graft kit ()[id number] FDA Start: 03-01-2022 Decompression, spine, cervical, posterior approach Bone-screw internal spinal fixation system, non-sterile ()[id number] FDA Start: 03-01-2022 Decompression, spine, cervical, posterior approach Bone-screw internal spinal fixation system, non-sterile ()[id number] FDA Start: 03-01-2022 Decompression, spine, cervical, posterior approach Bone-screw internal spinal fixation system, non-sterile ()[id number] FDA Start: 03-01-2022 Decompression, spine, cervical, posterior approach Bone-screw internal spinal fixation system, non-sterile ()[id number] FDA Start: 03-01-2022 Decompression, spine, cervical, posterior approach Bone-screw internal spinal fixation system, non-sterile ()[id number] FDA Start: 03-01-2022 Decompression, spine, cervical, posterior approach Bone-screw internal spinal fixation system, non-sterile ()[id number] FDA Start: 03-01-2022 Decompression, spine, cervical, posterior [...] approach Bone-screw internal spinal fixation system, non-sterile ()[id number] FDA Start: 02-12-2023 Decompression, spine, cervical, posterior approach Spinal fusion graft kit ([id number] FDA Start: 02-12-2023 Decompression, spine, cervical, posterior approach Bone-screw internal spinal fixation system, non-sterile ()[id number] FDA Start: 02-12-2023 Decompression, spine, cervical, posterior approach Bone-screw internal spinal fixation system, non-sterile ()[id number] FDA Start: 02-12-2023 Decompression, spine, cervical, posterior [...] Assessment Result Facility 09-16-2024 Functional Status N/A [facility] 08-05-2024 Functional Status N/A [facility] 07-15-2024 Functional Status N/A [facility] 06-25-2024 Functional Status N/A [facility] 06-09-2024 Functional Status N/A [facility] 05-26-2024 Functional Status N/A [facility] 02-28-2024 Functional Status N/A [facility] 01-23-2024 Functional Status N/A [facility] 12-06-2023 Functional Status N/A [facility] 10-18-2023 Functional Status N/A [facility] 02-14-2023 Functional status Patient at Baseline [facility] Work Phone: 03-02-2022 Functional status Patient at Baseline [facility] Work Phone: 02-28-2022 Functional status Functional Status Comme nt [facility] Work Phone: Mental Status Date Assessment Result Facility 02-14-2023 Cognitive function Cognitive Sta tus Patient at Baseline [facility] Work Phone: 03-02-2022 Cognitive function Cognitive Sta tus Patient at Baseline [facility] Work Phone: Clinical Notes [...] Medications (Ophthalmic Agents) Medication Sig Dispense Refill Gkvvkodzvws-Txzsohla-Ksnbqnabm 1-0.5-0.075 % solution Administer 1 drop into affected eye(s) in the morning and 1 drop at noon and 1 drop in the evening and 1 drop before bedtime. 10 mL 1 Wrvtqmmljer-Rkgezcdk-Xwwuysocj 1-0.5-0.075 % solution Administer 1 drop into [...] (Other) Past Medical History: Diagnosis Date Hypertension ([facility]) Allergies Allergen Reactions Penicillins Sulfa Antibiotics Review [...] @ 11:15 AM Additional Tests Keratometry K1 [place] K2 [place] Right 41.25 130 42.00 4 Left 41.25 [...] Normal Normal Refraction Wearing Rx Sphere Cylinder [place] Add Right +2.00 -0.25 125 +3.00 Left +2.25 -0.25 153 +3.00 Age: 4yrs Type: prog Manifest Refraction Sphere Cylinder [place] Right +0.25 -0.75 111 Left +2.50 -1.25 084 Final Rx Sphere Cylinder [place] Dist [facility] Right +0.25 -0.75 115 20/80 [...] different lens options were explained including the izx-do-wiarfj fees for any upgrades. Intraocular lens (IOL) [...] OD - 12/08. documented in this encounter [facility] 09-16-2024 Evaluation + Plan note Extrac carlos [...] for medication management. RANDI score: 42 %. [facility] 11-19-2024 NoteConsultation Note Patient: MARY ABURTO [...] day(s), # 60 cap(s), Refills(s) 2, Pharmacy: [facility]/pharmacy #[id number], 172.7, cm, 08/05/24 8:27:00 EDT, Height/Length Dosing, 65.9, kg, 08/05/24 8:27:00 EDT, Weight Dosing pregabalin 150 mg Cap: 150 mg = 1 cap(s), Oral, BID, # 60 cap(s), Refills(s) 1, Pharmacy: [facility]/pharmacy #[id number], 178, cm, 06/25/24 8:51:00 EDT, Height/Length [...] malignant neoplasm of colon / SNOMED CT 013481178 / Confirmed Aneurysm of ascending aorta / SNOMED CT 0082032515 / Confirmed Cerebrovascular accident / SNOMED CT 531589746 / Confirmed Cervical radiculopathy / SNOMED CT 662506230 / Confirmed Diverticula of intestine / SNOMED CT 434990173 / Confirmed Dyslipidemia / SNOMED CT 9670390043 / Confirmed Essential hypertension / SNOMED CT 09643513 / Confirmed Hemiplegia of right nondominant side / SNOMED CT 1077060551 / Confirmed Myocardial infarction / SNOMED CT 07240347 / Confirmed History of pulmonary embolism / SNOMED CT 956207821 / Confirmed Seborrheic keratoses / SNOMED CT 9567359194 / Confirmed Objective Vital Signs 09/16/2024 8:41 [...] than right hand 4+/5 Integumentary: Warm, Dry, [place]. Neurologic: Alert, Oriented. Psychiatric: Cooperative, Appropriate mood [...] months for medication management. RANDI score: 42 %.[facility]:Result Comment: Electronically Signed By: Luz Hernandes PA-C\.br\Date and Time Signed: 09/16/24 09:07 [id number] History of Present illness Narrative* TRACIE Haro - 09/02/2024 4:00 PM EST Images from the original note were not included. Reason for Appointment: EMG Patient: Mary Aburto : 1960 EMG Computer: [employer] Referring Physician: Dr. Antwon Hastings EMG: PRIYA golf caddy: Louis Alas RT(R) Office Location: [place] Reason for EMG: c/o numbness/tingling in right [...] nature of the test. [id number] Evaluation + Plan note Extracted from: Title:Pain [...] AM Scheduled Provider:Luz Hernandes PA-C Location:.[facility] [place] Appointment Type:Pain Management - Follow Up (FT) [facility] 10-08-2024 NoteConsultation Note Patient: MARY ABURTO [...] BID, # 60 cap(s), Refills(s) 1, Pharmacy: [facility]/pharmacy #[id number], 178, cm, 06/25/24 8:51:00 EDT, Height/Length Dosing, 65.8, kg, 06/25/24 8:51:00 EDT, Weight Dosing pregabalin 50 mg Cap: 50 mg = 1 cap(s), Oral, BID, X 20 day(s), # 40 cap(s), Refills(s) 0, Pharmacy: [facility]/pharmacy #[id number], 172.7, cm, 08/05/24 8:27:00 EDT, Height/Length [...] malignant neoplasm of colon / SNOMED CT 992581328 / Confirmed Aneurysm of ascending aorta / SNOMED CT 2727129855 / Confirmed Cerebrovascular accident / SNOMED CT 959016902 / Confirmed Cervical radiculopathy / SNOMED CT 829753628 / Confirmed Diverticula of intestine / SNOMED CT 547723068 / Confirmed Dyslipidemia / SNOMED CT 3240155314 / Confirmed Essential hypertension / SNOMED CT 51163365 / Confirmed Hemiplegia of right nondominant side / SNOMED CT 9462321468 / Confirmed Myocardial infarction / SNOMED CT 87855599 / Confirmed History of pulmonary embolism / SNOMED CT 944537505 / Confirmed Seborrheic keratoses / SNOMED CT 7142511425 / Confirmed Objective Vital Signs 08/05/2024 8:19 [...] than right hand 4+/5 Integumentary: Warm, Dry, [place]. Neurologic: Alert, Oriented. Psychiatric: Cooperative, Appropriate mood [...] require anything from our services. RANDI score: 56%.[facility] CenterComment on above:Result Comment: Electronically Signed By: Luz Hernandes PA-C\.mansoor\Date and Time Signed: 08/05/24 08:38 [id number] NoteGeneral Surgery Office/Clinic Note Chief Complaint consultation for nevus HPI Staff 64 year old male presents on consultation from Dr. Lara for nevus on back. Reports multiple scattered skin lesions over back. Denies soreness, bleeding, drainage or itching. History of Present Illness 64 yo male with h/o CAD, PA, htn, hyperlipidemia, hypothyroidism, CVA, cervical radiculopathy, referred [...] 02/07/2021 Recorded influenza virus vaccine, inactivated 07/31/2019 [facility]Result Comment: Electronically Signed By: Henrique DIOP MD\.br\Date and Time Signed: 07/15/24 16:39 [id number] Evaluation + Plan noteExtracted from: Title:Pain Managment [...] Date:07/15/2024 03:20:00 PM Scheduled Provider:Henrique DIOP MD Location:[facility] Appointment Type: Appointment Date:07/29/2024 07:45:00 AM Scheduled Provider:Luz Hernandes PA-C Location:.[facility] Appointment Type:Pain Management - Follow Up (FT) [facility] [id number] NoteConsultation Note Patient: MARY ABURTO Age: 64 [...] malignant neoplasm of colon / SNOMED CT 529614821 / Confirmed Objective Vital Signs 06/25/2024 8:42 [...] than right hand 4+/5 Integumentary: Warm, Dry, [place]. Neurologic: Alert, Oriented. Psychiatric: Cooperative, Appropriate mood [...] require anything from our services. RANDI score: 38%.[facility] CenterComment on above:Result Comment: Electronically Signed By: Luz Hernandes PA-C\faustino\Date and Time Signed: 06/25/24 09:16 [id number] Evaluation + Plan noteExtracted from: Title:T2/3 interlaminar [...] the epidural space was confirmed using the ubry-ol-lqwuosdksu technique and 2 cc of air. Injection [...] Date:06/25/2024 08:30:00 AM Scheduled Provider:Luz Hernandes PA-C Location:[facility] Appointment Type:Pain Management - Follow Up (FT) [facility] 08-12-2024 NoteOperative Report Diagnosis: M54.12, cervical [...] the epidural space was confirmed using the ybdc-qp-lkpkmvhbnp technique and 2 cc of air. Injection [...] procedure, and agrees to continue currently prescribed/recommended therapies.[facility] Comment on above:Result Comment: Electronically Signed By: Damián Estrada DO\Date and Time Signed: 06/09/24 09:06 [id number] NoteUT Cardiology - [facility] Subjective Mary Aburto is a [...] (40 mg) by m (more content not included)...[facility]06-13-2024 Hospital Discharge instructionsAmbulatory Orders* Referral to Neurology Time Frame: 04/10/24, Location: None [facility] Work Phone: 1(628) 249-664205-02-2024 Evaluation + Plan noteExtracted from: Title:chronic pain Author:Damián Estrada DO Date:02/28/24 [...] with any questions or concerns that arise. [facility]03-27-2024 Note [id number] 01-23-2024 NoteDiagnosis: M54.12, cervical radiculopathy [...] the epidural space was confirmed using the zlrk-kk-khnsmabvia technique and 2 cc of air. Injection [...] procedure, and agrees to continue currently prescribed/recommended therapies.[facility] Comment on above:Result Comment: Electronically Signed By: Damián Estrada DO\.br\Date and Time Signed: 01/23/24 15:15 [id number] Note [id number] 01-23-2024 Evaluation + Plan noteExtracted [...] the epidural space was confirmed using the ewxd-pm-nagqkfptar technique and 2 cc of air. Injection [...] 03:30:00 PM Scheduled Provider:Damián Estrada DO Location:.[facility] Appointment Type:Pain Management - Follow Up (FT) [facility]02-22-2024 NotePatient here for 1.5 year follow up CAD, AAA, hx of TIA and PE, and hypertension. [facility] Pain [facility] is requesting he hold aspirin 6 days [...] quickly). All other systems reviewed and are negative.[facility] 12-20-2023 NoteCardiovascular Medicine [place] [facility] SUBJECTIVE Chief Complaint Patient presents with [...] sx's of chest discomfort after starting baclofen. [place] like a sharp pain lasting seconds, occurred [...] Final Atrial Rate 01/21/2019 53 BPM Final AL Interval 01/21/2019 150 ms Final QRS DURATION 01/21/2019 90 ms Final QT Interval 01/21/2019 420 ms Final QTC CALCULATION(BEZET) 01/21/2019 394 ms Final P [place] 01/21/2019 33 degrees Final R-[place] 01/21/2019 53 degrees Final T Wave [place] 01/21/2019 66 degrees Final Diagnosis 01/21/2019 Final Value:Sinus bra (more content not included)...[facility]02-08-2024 Evaluation + Plan noteExtracted from: Title:Chronic [...] 4/5 strength in his right hand for desulfurizer machine 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 [facility]12-21-2023 Evaluation + Plan noteExtracted from: Title:Pain [...] PM Scheduled Provider:Damián Estrada DO Location:.[facility] Appointment Type:Pain Management - Follow Up (FT) [facility]10-17-2023 Evaluation note* Encounter Date Diagnosis Assessment [...] Jul, Spondylolisthesis, cervical region (ICD-10 - M43.12) [employer] Other 06-06-2023 Evaluation note* Encounter Date Diagnosis [...] Mar, Spondylolisthesis, cervical region (ICD-10 - M43.12) [facility] Other 05-02-2023 Evaluation note* Encounter Date Diagnosis [...] February, Spondylolisthesis, cervical region (ICD-10 - M43.12) [facility] Other 03-16-2023 Evaluation note* Encounter Date Diagnosis [...] Dec, Spondylolisthesis, cervical region (ICD-10 - M43.12) [facility] Other 02-09-2023 Evaluation note* Encounter Date Diagnosis [...] Cervical radiculopathy at C8 (ICD-10 - M54.12) [facility] Other 10-04-2022 Evaluation note* Encounter Date Diagnosis Assessment Notes Treatment Notes Treatment Clinical Notes Jul, Cervical spondylosis with myelopathy (ICD-10 - M47.12) This patient had a very severe cervical myelopathy with right arm weakness, numbness, and some discomfort; he has gotten better with regard to his left arm, but his right arm is never fully recovered, having a weak desulfurizer machine numbness and obvious atrophy of his hand [...] Jul, Spondylolisthesis, cervical region (ICD-10 - M43.12) [facility] Other 07-14-2022 Evaluation note* Encounter Date Diagnosis [...] of right upper extremity (ICD-10 - G56.21) [facility] Other 05-19-2022 Evaluation note* Encounter Date Diagnosis [...] take the brace off around that time. [employer] Other 05-05-2022 Progress note Author Antwon Hastings [facility] March 02, 2022 7:55am Note Date/Time March 02, 2022 7:55am [facility] [address] [place] [address] Neurosurgery Progress Note Signed Patient: Mary Aburto MR#: [id number] : 1960 Acct:[id number] Age/Sex: 62 / M Adm Date: 2 Loc: N Room: [address] [place] [address] Type : ADM IN Attending Dr: Antwon [...] signed by MD Antwon Hastings> 03/02/22 0755 [facility] Work Phone: 1([phone]) 671-325905-04-2022 History and physical note Author Antwon Hastings [facility] March 01, 2022 8:22am Note Date/Time March 01, 2022 8:21am [facility] [address] [place] [address] Neurosurgery H&P Signed with Addenda Patient: Mary Aburto MR#: [id number] : 1960 Acct:[id number] Age/Sex: 62 / M Adm Date: 2 Loc: Room: [address] [place] [address] Type : ADM IN Attending Dr: Antwon [...] extend the fingers of his hand his desulfurizer machine isweak he has had very little use of his right arm over the last 30 days. He is developing significant shoulder pain. 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 he is notable to do that [...] patient has noted that his right hand desulfurizer machine is become weaker and his right arm [...] % (Auto) 77.8, Lymph % (Auto) 15.3, [place] % (Auto) 6.2, Eos % (Auto) 0.4, Baso % (Auto) 0.3, Neut # (Auto) 10.2 H, Lymph # (Auto) 2.0, [place] # (Auto) 0.8, Eos # (Auto) 0.0, [...] % (Auto) 82.2, Lymph % (Auto) 9.5, [place] % (Auto) 7.6, Eos % (Auto) 0.1, Baso % (Auto) 0.6, Neut # (Auto) 10.8 H, Lymph # (Auto) 1.2, [place] # (Auto) 1.0 H, Eos # (Auto) [...] <Electronically signed by MD Antwon Hastings> 03/01/22820 [facility] Work Phone: 1(836) 674-647005-03-2022 Consult note Author W Deejay Hughes [facility] February 28, 2022 7:06pm Note Date/Time February 28, 2022 7:06pm [facility] [address] [place] [address] Cardiology Consult Note Signed Patient: Mary Aburto MR#: [id number] : 1960 Acct:[id number] Age/Sex: 62 / M Adm Date: 2 Loc: Room: [address] [place] [address] Type : ADM IN Attending Dr: Antwon Hastings MD Copies to: MD Yuyr Tran MD W Scott Sheldon, DO~ Cardiology [...] tingling. Pt has a PMHx of CAD, PA, HLD, HTN. He had been following up [...] cardiac arrest . This event occurred in [place], he recalls the history reasonably well, strangely, he states that he was only admitted for 4 to5 hours and discharged with no further follow-up. He denies any cardiac surgeryor stenting. He has been following up with Cardiology out of [place] and is currently prescribed Aspirin 81 mg [...] patient oriented x3 Motor: strength abnormal (Decreased desulfurizer machine strength of right hand and shoulder) Extrem [...] x10E3/uL Lymph # (Auto) 1.2 (1.00-4.8) x10E3/uL [place] # (Auto) 1.0 H (0.0-0.8) x10E3/uL Eos [...] <Electronically signed by Lupe Hughes DO> 02/28/22 1901 [facility] Work Phone: 1(599) 691-150504-28-2022 Evaluation note* Encounter Date Diagnosis Assessment Notes [...] Cervical spondylosis with myelopathy (ICD-10 - M47.12) [facility] [employer] Other evaluation + Plan note Future Appointments Appointment Date:06/09/2024 08:45:00 AM Scheduled Provider: Location:[facility] Pain [facility] Appointment Type:Surgery FT Appointment Date:06/25/2024 08:30:00 AM Scheduled Provider:Luz Hernandes PA-C Location:[facility] Appointment Type:Pain Management - Follow Up (FT) [facility] Evaluation + Plan note Future Appointments Appointment Date:08/05/2024 08:15:00 AM Scheduled Provider:Luz Hernandes PA-C Location:FT.[facility] Appointment Type:Pain Management - Follow Up (FT) [facility] [place] Evaluation noteNo assessment information available [facility] Work Phone: Evaluation note* Diagnosis Onset Date Resolution Status Cervical disc disorder with myelopathy acute Right arm weakness [facility] Work Phone: Evaluation noteNo [facility] hospital [employer] Other evalcquqjt note* Diagnosis Onset Date Resolution Status Spinal stenosis of cervical region with radiculopathy acute [facility] Work Phone: Evaluation note* Diagnosis Onset Date Resolution Status History of fusion of cervical spine acute Spondylolisthesis, cervical region acute [facility] Work Phone: Evaluation note* Diagnosis Cervical radiculopathy- Primary Brachial neuritis or radiculitis nos documented in this encounter [facility]* Diagnosis Age-related nuclear cataract of both eyes- Primary documented in this encounter [facility]History general Narrative - Reported* Type Description Date Medical History thyroid disease Surgical History heart [facility] [employer] Other History general Narrative - Reported* Type Description Date Medical History thyroid disease Surgical History heart catheterization Surgical History Posterior Cervical [facility] Hospitalization History See Above [employer] Other History general Narrative - Reported* Type Description Date Medical History thyroid disease Medical History high cholesterol Surgical History heart catheterization Surgical History Posterior Cervical [facility] Hospitalization History See Above [employer] Other History general [facility]ative - [facility] [employer] Other History general Narrative - Reported* Type Description Date Medical History thyroid disease Medical History high cholesterol Surgical History heart catheterization Surgical History Posterior Cervical Fusion-[facility] Surgical History PCD with fusion 2022 Hospitalization History See Above [employer] Other Hospital course Narrative No data available for this section [facility] Work Phone: Hospital Discharge instructions No data available for this section [facility] instructionsAmbulatory Orders* Referral to Neurology Time Frame: 04/10/24, Location: None [facility] Work Phone: Progress note No data available for this section [facility]Reason [facility] NarrativePain Medicine Referral [facility]No[facility] [employer] Other Summary Purpose Family History No Family [...] radiculopat hy at C8 (M54.12) Referral Organization [facility] Referring Provider First Name Antwon Referring Provider Last Name Venkata Referring Provider Specialty Neurologica l Surgery Referred Organization [facility] Referred Provider Damián Estrada Referred Address [address] [place], [place],[address] Referred Provider Specialty Pain Medicin e Referral Priority Routine Reason EMG/NCV RUE Diagnosis 1 Ulnar neuropathy of right upper extremity (G56.21) Referral [facility] Referring Provider First Name Antwon Referring Provider Last Name Venkata Referring Provider Specialty Neurologica l Surgery Referred Organization [facility] Referred Provider Davis Cardoso Referred Address [address] [place], [place],[address] Referred Provider Specialty Neurology Referral Priority Routine Additional Source Comments (unrecognized sect ion and content) No Status Records FoundNo Status Records FoundNo Status Records FoundNo Status Records FoundNo Status Records FoundNo Status Records FoundNo Status Records Found INFORMATION SOURCE (unrecogn ized section and content) DATE CREATED AUTHOR 02/03/2019 [facility] DATE CREATED AUTHOR AUTHOR'S ORGANIZ ATION 02/08/2023 [facility] DATE CREATED AUTHOR AUTHOR'S ORGANIZ ATION 02/21/2023 [facility] DATE CREATED AUTHOR AUTHOR'S ORGANIZ ATION 04/11/2024 [facility] DATE CREATED AUTHOR AUTHOR'S ORGANIZ ATION 05/22/2024 [facility] DATE CREATED AUTHOR AUTHOR'S ORGANIZ ATION 11/15/2024 [facility] DATE CREATED AUTHOR AUTHOR'S ORGANIZ ATION 11/17/2024 [facility] Care Teams (unrecognized sec tion [...] MD Primary Care Provider Active Laura Yu [facility] Emergency Provider Active Antwon [facility] MD Admit Provider, Attending Provider A ctive Team Status: Inactive Member Role Status Dates Yury Lara MD Primary Care Provide r, Attending Provider, Referring Provider Active Team Status: Inactive Member Role Status Dates Yury Lara MD Primary Care Provider Active Laura Yu [facility] Emergency Provider Active Antwon [facility] MD Admit Provider, Attending Provider A ctive Team Status: Inactive Member Role Status Dates Yury Lara MD Primary Care Provider Active Antwon [facility] MD Attending Provider Active Team Status: Inactive Member Role Status Dates Yury Lara MD Primary Care Provider Active Antwon [facility] MD Admit Provider, Attending Provider A ctive [employer] Relationship Specialty Start Date End Date Yury Lara MD [address] [place] [phone] PCP - General Family Medicine 05/31/23 [employer] Relationship Specialty Start Date End Date Yury Lara MD [address] [place] [phone] PCP - General Family Medicine 05/31/23 [employer] Relationship Specialty Start Date End Date Yury Lara MD [address] [place] [phone] PCP - General Family Medicine 05/31/23 [employer] Relationship Specialty Start Date End Date Yury Lara MD [address] [facility] [place] [phone] PCP - General Family Medicine 05/31/23 Goals [...] BE BASED ON THE PRIMARY CLINICAL RECORDS. [employer] provides no warranty or guarantee of the accuracy or completeness of information in this document.
[2025-06-13 10:58] LABS: Hematocrit 42.7 % (42.0-54.0); Hemoglobin 14.9 g/dL (14.0-18.0); Immature Granulocytes Abs Auto 0.04 10^3/uL (0.00-0.03); Immature Granulocytes Pct Auto 0.4 % (0.0-0.5); Lymphocytes Absolute Auto 3.1 10^3/uL (1.2-3.8); Mean Corpuscular HGB Conc 34.9 g/dL (29.9-35.2); Mean Corpuscular Hemoglobin 33.9 pg (25.9-34.0); Mean Corpuscular Volume 97.3 fL (80.0-94.0); Platelet Count 244 10^3/uL (150-450); Red Blood Count 4.39 10^6/uL (4.70-6.10); White Blood Count 10.7 10^3/uL (4.0-11.0)
[2025-06-13 11:31] LABS: Alanine Aminotransferase 10 U/L (16-63); Albumin Globulin Ratio 1.1; Albumin Level 3.6 g/dL (3.4-5.0); Alkaline Phosphatase 86 U/L (46-116); Anion Gap 10.8; Aspartate Amino Transferase 17 U/L (15-37); Blood Urea Nitrogen 17.0 mg/dL (7.0-18.0); Calcium 8.7 mg/dL (8.5-10.1); Carbon Dioxide 27.5 mmol/L (21.0-32.0); Chloride 106 mmol/L (98-107); Cholesterol 136 mg/dL (<=200); Estimated GFR (African America >60 (>=60 mL/min/1.73m^2); Estimated GFR (Non-African Ame 58 (>=60 mL/min/1.73m^2); Free T3 1.52 pg/mL (2.18-3.98); Globulin 3.2 g/dL; Glucose 118 mg/dL (74-106); HDL Cholesterol 45 mg/dL (40-60); Potassium 4.3 mmol/L (3.5-5.1); Sodium 140 mmol/L (136-145); Thyroid Stimulating Hormone 1.131 uIU/mL (0.358-3.740); Total Protein 6.8 g/dL (6.4-8.2); Triglycerides 120 mg/dL (<=150); VLDL CHOLESTEROL 24.0 mg/dL
== END 2025-06-13 10:38 | disposition home or self-care (01) ==
PROVIDERS: PCP Family Medicine; Visit Provider Family Medicine
DX: Z00.00 Encounter for general adult medical examination without abnormal findings (principal); I10 Essential (primary) hypertension; Z12.5 Encounter for screening for malignant neoplasm of prostate; E78.5 Hyperlipidemia, unspecified; Z12.11 Encounter for screening for malignant neoplasm of colon; R53.83 Other fatigue
CPT/HCPCS: 36415; 80053; 80061; 83036; 84436; 84443; 84481; 85025; G0103